=== PATIENT | female | born 1955 | race Caucasian/White ===

== ENCOUNTER 2017-12-20 11:38 | Emergency (ER) | payer OTHER ==
[2017-12-20 12:47] LABS: Absolute Lymphocytes (CBC) 1.2 K/uL (0.7-4.9); Absolute Monocytes 0.9 K/uL (0.1-1.3); Absolute Neutrophil 10.3 K/uL (1.8-8.0); Basophils % 0.3 % (0-1.3); Hematocrit 34.1 % (36.0-45.0); Lymphocytes % 9.8 % (15.3-44.8); MCH 30.5 pg (27.0-35.0); MCV 91.6 fL (80-100); RBC Red Blood Cell Count 3.73 M/uL (3.86-4.86)
[2017-12-20 13:00] LABS: Barbiturates NEGATIVE (NEGATIVE); Benzodiazepines NEGATIVE (NEGATIVE); Cocaine NEGATIVE (NEGATIVE); METHAMPHETAM NEGATIVE (NEGATIVE); Methadone NEGATIVE (NEGATIVE); Opiates NEGATIVE (NEGATIVE); Phencyclidine NEGATIVE (NEGATIVE); THC Cannibis NEGATIVE (NEGATIVE)
[2017-12-20 13:06] LABS: Protime INR 1.06
[2017-12-20 14:03] LABS: Urine Blood TRACE (NEG); Urine Glucose NEGATIVE (NEG); Urine Protein 2+ (NEG); Urine Specific Gravity 1.025 (1.005-1.030)
--- NOTE | 2017-12-20 14:51 | EKG ---
Test Date: 2017-12-20 Test Time: 11:46:20 Drainman: NICHOLAS MEASUREMENT RESULTS: Intervals: Rate: 89 NM: 150 QRSD: 88 QT: 450 QTc: 547 [place]: P: 76 NM: 150 QRS: 83 T: 84 INTERPRETIVE STATEMENTS: Normal sinus rhythm ST abnormality, possible digitalis effect Prolonged QT Abnormal ECG Compared to ECG 01/09/2014 13:36:28 ST (T wave) deviation now present Prolonged QT interval now present Electronically Signed On 12-20-17 14:50:10 CDT by Coy Nava
[2017-12-20 15:28] LABS: ALT/SGPT 49 U/L (12-78); AST/SGOT 52 U/L (15-37); Albumin 3.5 g/dL (3.4-5.0); Alkaline Phosphatase 73 U/L (45-117); BUN Blood Urea Nitrogen 14 mg/dL (7-18); Bicarbonate 22 mmol/L (21-32); Bilirubin Direct 0.2 mg/dL (0-0.2); Bilirubin Total 0.6 mg/dL (0.2-1.0); Glucose Level 164 mg/dL (74-106); Protein, Total 7.7 g/dL (6.4-8.2); Sodium Level 133 mmol/L (136-145)
[2017-12-20 15:33] LABS: Alcohol Serum/Plasma < 3 mg/dL (0-3)
[2017-12-20] MEDS ORDERED: NA CHLORIDE 0.9% 1,000 ML ONE ×2 (16:12→17:52)
[2017-12-20] MEDS ORDERED: POTASSIUM 25 MEQ EFFERV TAB ONE (16:12)
[2017-12-20] MEDS ORDERED: LIDOCAINE VISCOUS 2% SOLN 15 ML UDC ONE (18:04)
[2017-12-20] MEDS ORDERED: MAGNE/ALUM HYDROXD 30 ML UCUP ONE (18:04)
[2017-12-20] MEDS ORDERED: ONDANSETRON 4 MG/2 ML VIAL ONE (18:04)
[2017-12-20 18:42] LABS: Potassium 3.6 mmol/L (3.5-5.1)
[2017-12-20 19:34] LABS: Absolute Lymphocytes (CBC) 1.4 K/uL (0.7-4.9); Absolute Monocytes 1.1 K/uL (0.1-1.3); Basophils % 0.5 % (0-1.3); Hematocrit 31.1 % (36.0-45.0); Lymphocytes % 14.4 % (15.3-44.8); MCH 30.6 pg (27.0-35.0); MCV 91.4 fL (80-100); MPV 9.4 fL (7.6-11.3); Monocytes % 11.3 % (3.3-12.3); RBC Red Blood Cell Count 3.41 M/uL (3.86-4.86)
--- NOTE | 2017-12-20 20:13 | ER ---
Nurse's Notes [facility] Name: Lakeisha Kumari Age: 62 yrs Sex: Female : 1955 Arrival Date: 12/20/2017 Time: 11:50 Bed 16 Private MD: Diagnosis: Depression. Suicidal Ideation Presentation: 12/20 11:51 Presenting complaint: Patient states: Took "a hand full" or Prozac, Buspirone, and aj amlodipine, 12 hours ago. Patient reports that she was trying to overdose. Awake and alert. Reports nausea and abdominal cramping. Transition of care: patient was not received from another setting of care. Onset of symptoms was December 20, 2017. Risk Assessment: Do you want to hurt yourself or someone else? Patient reports desire/thoughts of hurting themselves or someone else. Provider notified. Initial Sepsis Screen: Does the patient meet any 2 criteria? No. Patient's initial sepsis screen is negative. Does the patient have a suspected source of infection? No. Patient's initial sepsis screen is negative. Care prior to arrival: None. 11:51 Method Of Arrival: EMS: [facility] 11:51 Acuity: KVNG 2 aj Triage Assessment: 11:55 General: Appears in no apparent distress. comfortable, Behavior is calm, cooperative, aj appropriate for age. Pain: Denies pain. Neuro: Level of Consciousness is awake, alert, obeys commands, Oriented to person, place, time, situation, Appropriate for age. Respiratory: Airway is patent Respiratory effort is even, unlabored, Respiratory pattern is regular, symmetrical. GI: Reports cramping, nausea. Derm: Skin is intact, is healthy with good turgor, Skin is pink, warm \\T\\ dry. normal. Historical: - Allergies: 11:55 No Known Allergies; aj - Home Meds: 11:55 Buspirone Oral [Active]; amlodipine oral [Active]; Prozac Oral [Active]; aj - PMHx: 11:55 Depression; Anxiety; Hypertension; aj - PSHx: 11:55 None; aj - Immunization history:: Adult Immunizations up to date. - Social history:: Smoking status: Patient/guardian denies using tobacco. - Ebola Screening: : Patient negative for fever greater than or equal to 101.5 degrees Fahrenheit, and additional compatible Ebola Virus Disease symptoms Patient denies exposure to infectious person Patient denies travel to an Ebola-affected area in the 21 days before illness onset No symptoms or risks identified at this time. Screenin:39 Abuse screen: Denies threats or abuse. Denies injuries from another. Nutritional aj screening: No deficits noted. Tuberculosis screening: No symptoms or risk factors identified. Fall Risk None identified. Assessment: 12:39 Reassessment: Patient appears in no apparent distress at this time. No changes from aj previously documented assessment. Patient and/or family updated on plan of care and expected duration. Pain level reassessed. See triage. 17:30 Reassessment: Report received from ELEONORA Davis. Pt currently resting in bed with eyes aa5 closed, respirations even and unlabored, skin is pink/warm/dry. . 17:50 General: Appears comfortable, Behavior is calm, cooperative, Pt reports suicidal aa5 attempt by overdose today. Pt states "I've never done anything stupid like this". . Pain: Complains of pain in right upper quadrant, left upper quadrant, right lower quadrant and left lower quadrant Pain radiates to up to throat Pain currently is 7 out of 10 on a pain scale. Quality of pain is described as burning, "heartburn" Pain began 2-3 days ago. Is episodic, Alleviated by nothing. Aggravated by none. Neuro: Level of Consciousness is awake, alert, obeys commands, Oriented to person, place, time, situation. Cardiovascular: Heart tones S1 S2 present Rhythm is regular. Respiratory: Airway is patent Respiratory effort is even, unlabored, Respiratory pattern is regular, symmetrical, Breath sounds are clear bilaterally. GI: Abdomen is round non-distended, Bowel sounds present X 4 quads. Abd is soft and non tender X 4 quads. Reports nausea, Pt currently denies vomiting, denies diarrhea. : No signs and/or symptoms were reported regarding the genitourinary system. EENT: No signs and/or symptoms were reported regarding the EENT system. Derm: Skin is pink, warm \\T\\ dry. Musculoskeletal: Range of motion: intact in all extremities. 18:15 Reassessment: Patient is alert, oriented x 3, equal unlabored respirations, skin aa5 warm/dry/pink. MD stated to repeat CBC and potassium level after NS infusion is completed. Pt notified of POC. 19:05 Reassessment: Patient appears in no apparent distress at this time. Patient is alert, lp1 oriented x 3, equal unlabored respirations, skin warm/dry/pink. Patient resting in bed. General: Behavior is calm, cooperative. 19:45 Reassessment: [facility] at bedside to evaluate patient. lp1 20:00 Reassessment: Nurse to Nurse report given to ELEONORA Fair at [facility]. lp1 20:28 Reassessment: Patient called son, El, and notified of transfer to [facility]. lp1 20:54 Reassessment: [facility] at bedside for transfer. lp1 Psych: 11:57 Subjective: Patient's mood is sad, Delusions are denied, Hallucinations are denied aj Having thoughts of suicide. Objective: Patient is cooperative, Speech is normal, Affect is flat. Interventions: Removed personal items and placed in bag. Patient placed in hospital gown. Searched person for dangerous items. Urine collected and sent for urine drug test. Suicide Risk Assessment: Sad Person Scale: Sex of patient: Female: Score 0 points. Age of patient: Score 1 point if patient 15-34. Depression: Score 1 point if signs of depression are present. Previous Attempt: Score 0 point if patient has not previously attempted suicide. Substance Abuse: Score 0 point if patient does not abuse alcohol or drugs. Rational Thinking: Score 0 point if patient has rational thinking. Social Support: Score 1 point if social support is lacking and/or unavailable. Organized Plan: Score 0 if patient did not have an organized plan in place. Relationship: Score 1 point if patient is , , , or for a single male Chronic Sickness: Score 0 point if patient does not have a chronic illness, debilitating, or severe disorder. TOTAL POINTS:. Safety Checks: Personal items have been removed. Pt has been placed in a hallway bed/chair. No visitors are present at this time. Pt denies substance abuse. Commitment: Patient will be a voluntary commitment. Vital Signs: 11:55 BP 139 / 66; Pulse 91; Resp 18; Temp 98.5; Pulse Ox 100% on R/A; Weight 56.7 kg; Height aj 5 ft. 4 in. (162.56 cm); Pain 0/10; 12:48 BP 132 / 62; Pulse 96; Resp 18; Pulse Ox 98% on R/A; tm3 13:43 BP 145 / 59; Pulse 77; Resp 18; Pulse Ox 100% on R/A; tm3 14:32 BP 132 / 65; Pulse 80; Resp 16; Pulse Ox 100% on R/A; tm3 16:46 BP 139 / 53; Pulse 100; Resp 18; Pulse Ox 100% on R/A; tm3 17:34 BP 116 / 55; Pulse 94; Resp 18; Pulse Ox 100% on R/A; tm3 19:05 BP 132 / 69; Pulse 97; Resp 18; Temp 99.7(O); Pulse Ox 98% on R/A; Pain 0/10; cc 11:55 Body Mass Index 21.46 (56.70 kg, 162.56 cm) ED Course: 11:50 Patient arrived in ED. aj 11:51 Efrem Melara MD is Attending Physician. 11:51 Susan Funez, RN is Primary Nurse. aj 11:54 Triage completed. aj 11:54 EKG done, by sorter/assay tech. reviewed by Efrem Melara MD. at1 11:55 Arm band placed on left wrist. Patient placed in an exam room, on a stretcher, Patient aj Room cleared. EKG completed in triage. Results shown to MD. 12:00 Safety checks: Items removed: yes. Door open/sign placed on door: yes. Family/friend tm3 present: no. Sitter present: Yes. 12:19 Safety checks: Items removed: yes. Door open/sign placed on door: yes. Family/friend tm3 present: no. Sitter present: Yes. 12:35 Safety checks: Items removed: yes. Door open/sign placed on door: yes. Family/friend tm3 present: no. Sitter present: Yes. 12:39 Inserted saline lock: 22 gauge in left antecubital area, using aseptic technique. Blood aj collected. 12:39 Patient has correct armband on for positive identification. aj 12:47 Safety checks: Items removed: yes. Door open/sign placed on door: yes. Family/friend tm3 present: no. Sitter present: Yes. 12:52 Urine collected: clean catch specimen, clear. [facility] 12:52 Urine Dipstick--Ancillary (enter results) Sent. [facility] 12:52 ETOH Level Sent. [facility] 12:53 Urine Drug Screen Sent. [facility] 13:05 Safety checks: Items removed: yes. Door open/sign placed on door: yes. Family/friend tm3 present: no. Sitter present: Yes. 13:24 Safety checks: Items removed: yes. Door open/sign placed on door: yes. Family/friend tm3 present: no. Sitter present: Yes. 13:25 Side rails up X 1. Side rails up X2. tm3 13:42 Safety checks: Items removed: yes. Door open/sign placed on door: yes. Family/friend tm3 present: no. Sitter present: Yes. 14:02 Safety checks: Items removed: yes. Door open/sign placed on door: yes. Family/friend tm3 present: no. Sitter present: Yes. 14:15 Safety checks: Items removed: yes. Door open/sign placed on door: yes. Family/friend tm3 present: no. Sitter present: Yes. 14:32 Safety checks: Items removed: yes. Door open/sign placed on door: yes. Family/friend tm3 present: no. Sitter present: Yes. 14:48 Safety checks: Items removed: Door open/sign placed on door: yes. Family/friend tm3 present: no. Sitter present: Yes. 15:00 Safety checks: Items removed: yes. Door open/sign placed on door: yes. Family/friend mh5 present: no. Sitter present: Yes. 15:30 Safety checks: Items removed: yes. Door open/sign placed on door: yes. Family/friend mh5 present: no. Sitter present: Yes. 15:45 Safety checks: Items removed: yes. Door open/sign placed on door: yes. Family/friend mh5 present: no. Sitter present: Yes. 16:00 Safety checks: Items removed: yes. Door open/sign placed on door: yes. Family/friend mh5 present: no. Sitter present: Yes. 16:15 Safety checks: Items removed: yes. Door open/sign placed on door: yes. Family/friend mh5 present: no. Sitter present: Yes. 16:30 Safety checks: Items removed: yes. Door open/sign placed on door: yes. Family/friend mh5 present: no. Sitter present: Yes. 16:46 Safety checks: Items removed: yes. Door open/sign placed on door: yes. Family/friend tm3 present: no. Sitter present: Yes. 17:02 Safety checks: Items removed: yes. Door open/sign placed on door: yes. Family/friend tm3 present: no. Sitter present: Yes. 17:14 Safety checks: Items removed: yes. Door open/sign placed on door: yes. Family/friend tm3 present: no. Sitter present: Yes. 17:30 Safety Checks: Personal items have been removed. The door is open or patient has been aa5 placed in a hallway bed/chair. Sitter present at this time. 17:30 Safety checks: Items removed: yes. Door open/sign placed on door: yes. Family/friend tm3 present: no. Sitter present: Yes. 17:45 Safety Checks: Personal items have been removed. The door is open or patient has been aa5 placed in a hallway bed/chair. Sitter present at this time. 17:51 Safety checks: Items removed: yes. Door open/sign placed on door: yes. Family/friend tm3 present: no. Sitter present: Yes. 17:54 Diet: Patient given a regular meal tray. [facility] 18:00 Safety Checks: Personal items have been removed. The door is open or patient has been aa5 placed in a hallway bed/chair. Sitter present at this time. 18:03 Safety checks: Items removed: yes. Door open/sign placed on door: yes. Family/friend tm3 present: no. Sitter present: Yes. 18:04 Repeat lab(s) drawn. sent to lab. [facility] 18:15 Safety Checks: Personal items have been removed. The door is open or patient has been aa5 placed in a hallway bed/chair. Sitter present at this time. 18:17 Safety checks: Items removed: yes. Door open/sign placed on door: yes. Family/friend tm3 present: no. Sitter present: Yes. 18:22 Urine Dipstick--Ancillary (enter results) Sent. [facility] 18:22 Basic Metabolic Panel Sent. [facility] 18:30 Safety Checks: Personal items have been removed. The door is open or patient has been aa5 placed in a hallway bed/chair. There are no family/friend visitors at this time Sitter present at this time. 18:32 Safety checks: Items removed: yes. Door open/sign placed on door: yes. Family/friend tm3 present: no. Sitter present: Yes. 18:44 Safety checks: Items removed: yes. Door open/sign placed on door: yes. Family/friend tm3 present: no. Sitter present: Yes. 18:45 Safety Checks: Personal items have been removed. The door is open or patient has been aa5 placed in a hallway bed/chair. There are no family/friend visitors at this time Sitter present at this time. 18:55 Yuliya Xie RN is Primary Nurse. 1 18:59 Safety checks: Items removed: yes. Door open/sign placed on door: yes. Family/friend cc present: no. Sitter present: Yes. 19:00 Safety Checks: Personal items have been removed. The door is open or patient has been aa5 placed in a hallway bed/chair. There are no family/friend visitors at this time Sitter present at this time. 19:00 No provider procedures requiring assistance completed. 1 19:00 Report given to Yuliya Xie RN. 5 19:15 Safety checks: Items removed: yes. Door open/sign placed on door: yes. Family/friend cc present: no. Sitter present: Yes. 19:25 Repeat lab(s) drawn. by me, sent to lab. lp1 19:34 Safety checks: Items removed: yes. Door open/sign placed on door: yes. Family/friend cc present: no. Sitter present: Yes. 19:57 [place] screener at bedside. cc 20:05 Safety checks: Items removed: yes. Door open/sign placed on door: no. Family/friend cc present: no. Sitter present: Yes. Other: [place] screener at bedside. 20:18 Safety checks: Items removed: yes. Door open/sign placed on door: no. Family/friend cc present: no. Sitter present: Other: [place] screener present. 20:32 Safety checks: Items removed: yes. Door open/sign placed on door: no. Family/friend cc present: no. Sitter present: Other: [place] Screener present. 20:45 Safety checks: Items removed: yes. Door open/sign placed on door: yes. Family/friend cc present: no. Sitter present: Yes. 20:54 IV discontinued, No redness/swelling at site. Pressure dressing applied. lp1 Administered Medications: 16:20 Drug: Potassium Effervescent Tablet 50 mEq Route: PO; aj 17:30 Follow up: Response: No adverse reaction iw 16:20 Drug: NS 0.9% 1000 ml Route: IV; Rate: 1 bolus; Site: left antecubital; aj 17:30 Follow up: IV Status: Completed infusion iw 17:57 Drug: NS 0.9% 1000 ml Route: IV; Rate: 1 bolus; Site: left antecubital; iw 19:15 Follow up: IV Status: Completed infusion; IV Intake: 1000ml lp1 18:06 Drug: Zofran 4 mg Route: IVP; Site: left antecubital; aa5 18:15 Follow up: Response: No adverse reaction aa5 18:06 Drug: GI Cocktail without - (Maalox Suspension 30 ml, Lidocaine Liquid 2 % 15 aa5 ml) Route: PO; 20:29 Follow up: Response: No adverse reaction; Marked relief of symptoms lp1 Intake: 19:15 IV: 1000ml; Total: 1000ml. lp1 Outcome: 20:12 ER care complete, transfer ordered by . pkl 20:54 Condition: stable lp1 20:54 Instructed on the need for transfer. 20:55 Transferred by ground EMS to other acute care facility. lp1 20:58 Patient left the ED. lp1 Signatures: Tc Sanchez tm3 Susan Funez RN RN aj Lam, Pin, MD MD pkl Adeola Bartholomew RN RN Azucena Swanson RN RN aa5 Chelsy Ortiz Laura, RN RN lp1 Susan velazquez, shear setter EKG Tat1 Crystal Newman 5 Efrem Melara MD MD Corrections: (The following items were deleted from the chart) 18:26 17:50 General: Appears comfortable, Behavior is calm, cooperative, aa5 aa5
--- NOTE | 2017-12-20 20:13 | EDPHYS ---
Physician Documentation [facility] Name: Lakeisha Kumari Age: 62 yrs Sex: Female : 1955 Arrival Date: 12/20/2017 Time: 11:50 Bed 16 Private MD: ED Physician Efrem Melara HPI: 12/20 14:12 This 62 yrs old Female presents to ER via EMS with complaints of Psych gs Problem. 14:12 The patient presents to the emergency department with depression, suicide ideation, but gs the patient has no formulated plan. Onset: The symptoms/episode began/occurred 2 day(s) ago. Associated signs and symptoms: Pertinent negatives: chest pain, delusions, homicidal ideation. Severity of symptoms: At their worst the symptoms were moderate in the emergency department the symptoms are unchanged. The patient has experienced similar episodes in the past, a few times. Historical: - Allergies: 11:55 No Known Allergies; aj - Home Meds: 11:55 Buspirone Oral [Active]; amlodipine oral [Active]; Prozac Oral [Active]; aj - PMHx: 11:55 Depression; Anxiety; Hypertension; aj - PSHx: 11:55 None; aj - Immunization history:: Adult Immunizations up to date. - Social history:: Smoking status: Patient/guardian denies using tobacco. - Ebola Screening: : Patient negative for fever greater than or equal to 101.5 degrees Fahrenheit, and additional compatible Ebola Virus Disease symptoms Patient denies exposure to infectious person Patient denies travel to an Ebola-affected area in the 21 days before illness onset No symptoms or risks identified at this time. ROS: 14:12 All other systems are negative. gs Exam: 14:12 Head/Face: Normocephalic, atraumatic. Eyes: Pupils equal round and reactive to light, gs extra-ocular motions intact. Lids and lashes normal. Conjunctiva and sclera are non-icteric and not injected. Cornea within normal limits. Periorbital areas with no swelling, redness, or edema. ENT: Nares patent. No nasal discharge, no septal abnormalities noted. Tympanic membranes are normal and external auditory canals are clear. Oropharynx with no redness, swelling, or masses, exudates, or evidence of obstruction, uvula midline. Mucous membranes moist. Neck: Trachea midline, no thyromegaly or masses palpated, and no cervical lymphadenopathy. Supple, full range of motion without nuchal rigidity, or vertebral point tenderness. No Meningismus. Chest/axilla: Normal chest wall appearance and motion. Nontender with no deformity. No lesions are appreciated. Cardiovascular: Regular rate and rhythm with a normal S1 and S2. No gallops, murmurs, or rubs. Normal PMI, no JVD. No pulse deficits. Respiratory: Lungs have equal breath sounds bilaterally, clear to auscultation and percussion. No rales, rhonchi or wheezes noted. No increased work of breathing, no retractions or nasal flaring. Abdomen/GI: Soft, non-tender, with normal bowel sounds. No distension or tympany. No guarding or rebound. No evidence of tenderness throughout. Back: No spinal tenderness. No costovertebral tenderness. Full range of motion. Skin: Warm, dry with normal turgor. Normal color with no rashes, no lesions, and no evidence of cellulitis. MS/ Extremity: Pulses equal, no cyanosis. Neurovascular intact. Full, normal range of motion. Neuro: Awake and alert, GCS 15, oriented to person, place, time, and situation. Cranial nerves II-XII grossly intact. Motor strength 5/5 in all extremities. Sensory grossly intact. Cerebellar exam normal. Normal gait. 14:12 Constitutional: The patient appears alert, awake. 14:12 ECG was reviewed by the Attending Physician. 14:24 Psych: Behavior/mood is depressed, Affect is flat, Oriented to person, place, time, gs Patient having thoughts of suicide. Judgement / Insight is impaired. Vital Signs: 11:55 BP 139 / 66; Pulse 91; Resp 18; Temp 98.5; Pulse Ox 100% on R/A; Weight 56.7 kg; Height aj 5 ft. 4 in. (162.56 cm); Pain 0/10; 12:48 BP 132 / 62; Pulse 96; Resp 18; Pulse Ox 98% on R/A; tm3 13:43 BP 145 / 59; Pulse 77; Resp 18; Pulse Ox 100% on R/A; tm3 14:32 BP 132 / 65; Pulse 80; Resp 16; Pulse Ox 100% on R/A; tm3 16:46 BP 139 / 53; Pulse 100; Resp 18; Pulse Ox 100% on R/A; tm3 17:34 BP 116 / 55; Pulse 94; Resp 18; Pulse Ox 100% on R/A; tm3 19:05 BP 132 / 69; Pulse 97; Resp 18; Temp 99.7(O); Pulse Ox 98% on R/A; Pain 0/10; cc 11:55 Body Mass Index 21.46 (56.70 kg, 162.56 cm) aj MDM: 12:15 Patient medically screened. 14:12 Differential diagnosis: acute psychotic break, depression, psychosis secondary to gs non-compliance, suicidal ideation. Data reviewed: vital signs, nurses notes. 14:24 Response to treatment: the patient's symptoms have mildly improved after treatment. 20:09 Data reviewed: lab test result(s), EKG, radiologic studies. pkl 12/20 12:27 Order name: Acetaminophen; Complete Time: 17:54 12/20 12:27 Order name: Basic Metabolic Panel; Complete Time: 17:54 12/20 12:27 Order name: CBC with Diff; Complete Time: 14:18 12/20 12:27 Order name: ETOH Level; Complete Time: 17:54 12/20 12:27 Order name: Hepatic Function; Complete Time: 17:54 12/20 12:27 Order name: PT-INR; Complete Time: 14:18 12/20 12:27 Order name: Salicylate; Complete Time: 15:31 12/20 12:27 Order name: Urine Drug Screen; Complete Time: 14:18 12/20 12:48 Order name: Urine Dipstick--Ancillary (enter results) bd 12/20 16:14 Order name: Magnesium; Complete Time: 17:54 12/20 17:55 Order name: BMP 12/20 17:55 Order name: Basic Metabolic Panel; Complete Time: 18:46 EDMS 12/20 19:00 Order name: CBC with Diff; Complete Time: 20:04 lp1 12/20 12:27 Order name: EKG; Complete Time: 12:28 12/20 12:27 Order name: EKG - Nurse/Tech; Complete Time: 12:39 12/20 12:27 Order name: IV Saline Lock; Complete Time: 12:39 12/20 12:27 Order name: Labs collected and sent; Complete Time: 12:39 12/20 12:27 Order name: Urine Dipstick-Ancillary (obtain specimen); Complete Time: 12:39 12/20 16:05 Order name: Diet Regular; Complete Time: 16:05 [facility] EC:12 Rate is 89 beats/min. Rhythm is regular. [place] interval is normal. QRS interval is normal. gs No Q waves. T waves are Flattened. Clinical impression: Abnormal EKG without significant change. Interpreted by me. Administered Medications: 16:20 Drug: Potassium Effervescent Tablet 50 mEq Route: PO; aj 17:30 Follow up: Response: No adverse reaction iw 16:20 Drug: NS 0.9% 1000 ml Route: IV; Rate: 1 bolus; Site: left antecubital; aj 17:30 Follow up: IV Status: Completed infusion iw 17:57 Drug: NS 0.9% 1000 ml Route: IV; Rate: 1 bolus; Site: left antecubital; iw 19:15 Follow up: IV Status: Completed infusion; IV Intake: 1000ml lp1 18:06 Drug: Zofran 4 mg Route: IVP; Site: left antecubital; aa5 18:15 Follow up: Response: No adverse reaction aa5 18:06 Drug: GI Cocktail without - (Maalox Suspension 30 ml, Lidocaine Liquid 2 % 15 aa5 ml) Route: PO; 20:29 Follow up: Response: No adverse reaction; Marked relief of symptoms lp1 Disposition: 12/20/17 20:12 Transfer ordered to Psych Facility. Diagnosis is Depression. Suicidal Ideation. - Reason for transfer: Higher level of care. - Accepting physician is Dr. Goldy Ambrocio. - Condition is Stable. - Problem is new. - Symptoms are unchanged. Signatures: Dispatcher [employer] EDSusan Huff RN RN aj Lam, Pin, MD MD pkl Adeola Bartholomew RN RN Azucena Swanson RN RN aa5 Yuliya Xie RN RN lp1 Efrem Melara MD MD gs Corrections: (The following items were deleted from the chart) 20:58 20:12 12/20/2017 20:12 Transfer ordered to Psych Facility. Diagnosis is Depression. lp1 Suicidal Ideation. Reason for transfer: Higher level of care. Accepting physician is Dr. Goldy Ambrocio. Condition is Stable. Problem is new. Symptoms are unchanged. pkl
[2017-12-20 21:21] VITALS: BP 132/69; TEMP 99.7; O2SAT 98
== END 2017-12-20 20:58 ==
LOC: ER 11:38
DX: F32.9 Major depressive disorder, single episode, unspecified (principal); R45.851 Suicidal ideations; I10 Essential (primary) hypertension
CPT/HCPCS: 36415; 80048 ×2; 80076; 80307 ×8; 80320; 80329 ×2; 81003; 83735; 85025 ×2; 85610; 93005; 96361; 96374; 99285; J2405; J7030 ×2

== ENCOUNTER 2018-02-09 20:58 | Observation (INO) | payer OTHER ==
[2018-02-09] MEDS ORDERED: cloNIDine HCl 0.1 MG TAB ONE (21:30)
[2018-02-09 21:38] LABS: Absolute Lymphocytes (CBC) 2.3 K/uL (0.7-4.9); Absolute Monocytes 0.6 K/uL (0.1-1.3); Absolute Neutrophil 3.4 K/uL (1.8-8.0); Basophils % 0.5 % (0-1.3); Eosinophils % 2.3 % (0-4.4); Hematocrit 33.8 % (36.0-45.0); Lymphocytes % 35.6 % (15.3-44.8); MCH 30.6 pg (27.0-35.0); MCV 90.4 fL (80-100); MPV 9.2 fL (7.6-11.3); Monocytes % 9.9 % (3.3-12.3); RBC Red Blood Cell Count 3.74 M/uL (3.86-4.86)
[2018-02-09 21:56] LABS: ALT/SGPT 70 U/L (12-78); AST/SGOT 51 U/L (15-37); Albumin 3.4 g/dL (3.4-5.0); Alkaline Phosphatase 117 U/L (45-117); BUN Blood Urea Nitrogen 9 mg/dL (7-18); Bicarbonate 28 mmol/L (21-32); Bilirubin Total 0.3 mg/dL (0.2-1.0); Glucose Level 87 mg/dL (74-106); Lipase 376 U/L (73-393); Potassium 3.3 mmol/L (3.5-5.1); Protein, Total 7.9 g/dL (6.4-8.2); Sodium Level 139 mmol/L (136-145); Troponin (Emerg Dept Use Only) < 0.02 ng/mL (0.0-0.045)
--- NOTE | 2018-02-09 23:46 | ER ---
Nurse's Notes [facility] Name: Lakeisha Kumari Age: 62 yrs Sex: Female : 1955 Arrival Date: 02/09/2018 Time: 21:04 Bed 4 Private MD: Diagnosis: Chest pain, unspecified;Hypertension secondary to other renal disorders Presentation: 02/09 21:08 Presenting complaint: Patient states: I am staying at [facility] for drug rehab and tl2 they wanted me to come here because my blood pressure is high. Also reports chest pressure and headache that started 3 hours TUBULAR RIVETER. Transition of care: patient was received from another setting of care (rehabilitation facility). Onset of symptoms was February 09, 2018 at 18:00. Risk Assessment: Do you want to hurt yourself or someone else? Patient reports no desire to harm self or others. Initial Sepsis Screen: Does the patient meet any 2 criteria? No. Patient's initial sepsis screen is negative. Does the patient have a suspected source of infection? No. Patient's initial sepsis screen is negative. Care prior to arrival: None. 21:08 Method Of Arrival: EMS: [email or web address] tl2 21:08 Acuity: KVNG 2 tl2 Triage Assessment: 21:11 General: Appears in no apparent distress. uncomfortable, Behavior is calm, cooperative, tl2 appropriate for age. Pain: Complains of pain in chest, headache Pain does not radiate. Neuro: Level of Consciousness is awake, alert, obeys commands, Oriented to person, place, time, situation, Reports headache. Cardiovascular: Chest pain is described as mild, quality is pressure, is located in anterior. Respiratory: Airway is patent Respiratory effort is even, unlabored, Respiratory pattern is regular, symmetrical. GI: No signs and/or symptoms were reported involving the gastrointestinal system. : No signs and/or symptoms were reported regarding the genitourinary system. Derm: Skin is pink, warm \T\ dry. Historical: - Allergies: 21:11 No Known Allergies; tl2 - Home Meds: 21:11 amlodipine oral [Active]; Buspirone Oral [Active]; Prozac Oral [Active]; tl2 - PMHx: 21:11 Anxiety; Depression; Hypertension; tl2 - Immunization history:: Adult Immunizations up to date. - Social history:: Smoking status: Patient uses tobacco products, smokes one pack cigarettes per day. - Ebola Screening: : No symptoms or risks identified at this time. Screenin:13 Abuse screen: Denies threats or abuse. Nutritional screening: No deficits noted. tl2 Tuberculosis screening: No symptoms or risk factors identified. Fall Risk None identified. Assessment: 21:15 General: Appears in no apparent distress. Pain: Complains of pain in anterior aspect of ea left upper chest and mid-sternal area Pain does not radiate. Quality of pain is described as aching, Pain began 3 hours ago. Neuro: Level of Consciousness is awake, alert, obeys commands, Oriented to person, place, time, situation. Cardiovascular: Heart tones S1 S2 present Patient's skin is warm and dry. Respiratory: Airway is patent Respiratory effort is even, unlabored, Respiratory pattern is regular, symmetrical, Breath sounds are clear bilaterally. GI: No signs and/or symptoms were reported involving the gastrointestinal system. : No signs and/or symptoms were reported regarding the genitourinary system. EENT: No signs and/or symptoms were reported regarding the EENT system. Derm: Skin is pink, warm \T\ dry. 22:21 Reassessment: Patient and/or family updated on plan of care and expected duration. Pain ea level reassessed. Patient is alert, oriented x 3, equal unlabored respirations, skin warm/dry/pink. 23:03 Reassessment: Patient and/or family updated on plan of care and expected duration. Pain ea level reassessed. Pt resting with eyes closed, respirations even and unlabored. Chest expansions even and symmetrical. No s/s of pain or discomfort noted at this time. 23:15 Reassessment: Patient appears in no apparent distress at this time. Patient and/or tl2 family updated on plan of care and expected duration. Pain level reassessed. Pt appears to be sleeping, RR even and unlabored. 02/10 00:23 Reassessment: Patient and/or family updated on plan of care and expected duration. Pain ea level reassessed. Patient is alert, oriented x 3, equal unlabored respirations, skin warm/dry/pink. 01:18 Reassessment: Report called to [facility] on second floor. ea Vital Signs: 02/09 21:11 BP 185 / 71; Pulse 60; Resp 20; Temp 97.9; Pulse Ox 98% on R/A; Weight 68.04 kg; Height tl2 5 ft. 5 in. (165.10 cm); Pain 5/10; 22:17 BP 154 / 81; Pulse 70; Resp 18; Pulse Ox 98% on R/A; ea 22:19 BP 154 / 81; Pulse 74; Resp 18; Pulse Ox 98% on R/A; tl2 23:05 BP 148 / 56; Pulse 61; Resp 16; Pulse Ox 98% ; ea 02/10 00:26 BP 149 / 64; Pulse 67; Resp 15; Pulse Ox 98% on R/A; ea 01:15 BP 145 / 78; Pulse 60; Resp 18; Pulse Ox 99% ; Pain 0/10; ea 02/09 21:11 Body Mass Index 24.96 (68.04 kg, 165.10 cm) tl2 ED Course: 02/09 21:04 Patient arrived in ED. ds1 21:08 Dario Boggs MD is Attending Physician. ps1 21:09 Triage completed. tl2 21:11 Arm band placed on right wrist. tl2 21:13 Patient has correct armband on for positive identification. Bed in low position. Call tl2 light in reach. Side rails up X 1. planning specialist on. Pulse ox on. NIBP on. 21:13 Inserted saline lock: 22 gauge in right antecubital area, using aseptic technique. tl2 Blood collected. Patient maintains SpO2 saturation greater than 95% on room air. 21:17 Sharon Black RN is Primary Nurse. ea 23:44 Max Barber MD is Hospitalizing Provider. ps1 02/10 01:19 Patient admitted, IV remains in place. ea 01:19 No provider procedures requiring assistance completed. ea Administered Medications: 02/09 21:30 Drug: cloNIDine 0.1 mg {Note: BP 185/71.} Route: PO; tl2 22:30 Follow up: Response: No adverse reaction; Blood pressure is lowered tl2 Outcome: 23:45 Decision to Hospitalize by Provider. ps1 02/10 00:30 Instructed on the need for admit. ea 01:19 Admitted to Med/surg accompanied by tech, room 429, Report called to [facility] ea 01:19 Condition: stable 01:32 Patient left the ED. ea Signatures: Vickie Horta ds1 Ratna Jackson RN RN tl2 Sharon Black RN RN Dario Poe MD MD ps1 Corrections: (The following items were deleted from the chart) 02:08 01:56 Patient left the ED. ton camilo
--- NOTE | 2018-02-09 23:46 | EDPHYS ---
Physician Documentation [facility] Name: Lakeisha Kumari Age: 62 yrs Sex: Female : 1955 Arrival Date: 02/09/2018 Time: 21:04 Bed 4 Private MD: ED Physician Dario Boggs HPI: 02/09 21:10 This 62 yrs old Female presents to ER via EMS with complaints of High Blood ps1 Pressure, Chest Pain. 21:10 patient with history of HTN on amlodipine in rehab for tox/etoh presenting with CP and ps1 pressure since 3pm. radiating to neck. 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 Pain moderate. BP 180's systolic per EMS. . Historical: - Allergies: 21:11 No Known Allergies; tl2 - Home Meds: 21:11 amlodipine oral [Active]; Buspirone Oral [Active]; Prozac Oral [Active]; tl2 - PMHx: 21:11 Anxiety; Depression; Hypertension; tl2 - Immunization history:: Adult Immunizations up to date. - Social history:: Smoking status: Patient uses tobacco products, smokes one pack cigarettes per day. - Ebola Screening: : No symptoms or risks identified at this time. ROS: 21:10 Constitutional: Negative for fever, chills, and weight loss, Eyes: Negative for injury, ps1 pain, redness, and discharge, Respiratory: Negative for shortness of breath, cough, wheezing, and pleuritic chest pain, Abdomen/GI: Negative for abdominal pain, nausea, vomiting, diarrhea, and constipation, MS/Extremity: Negative for injury and deformity, Skin: Negative for injury, rash, and discoloration, Neuro: Negative for headache, weakness, numbness, tingling, and seizure. Exam: 21:10 Constitutional: This is a well developed, well nourished patient who is awake, alert, ps1 and in no acute distress. Head/Face: Normocephalic, atraumatic. Eyes: Pupils equal round and reactive to light, extra-ocular motions intact. Lids and lashes normal. Conjunctiva and sclera are non-icteric and not injected. ENT: Nares patent. No nasal discharge, no septal abnormalities noted. Tympanic membranes are normal and external auditory canals are clear. Oropharynx with no redness, swelling, or masses, exudates, or evidence of obstruction, uvula midline. Mucous membranes moist. Chest/axilla: Normal chest wall appearance and motion. Nontender with no deformity. No lesions are appreciated. Cardiovascular: Regular rate and rhythm. No gallops, murmurs, or rubs. Normal PMI, no JVD. No pulse deficits. Respiratory: Lungs have equal breath sounds bilaterally, clear to auscultation and percussion. No rales, rhonchi or wheezes noted. No increased work of breathing, no retractions or nasal flaring. Abdomen/GI: Soft, non-tender, with normal bowel sounds. No distension or tympany. No guarding or rebound. No evidence of tenderness throughout. Skin: Warm, dry with normal turgor. Normal color with no rashes, no lesions, and no evidence of cellulitis. MS/ Extremity: Pulses equal, no cyanosis. Neurovascular intact. Full, normal range of motion. Neuro: Awake and alert, GCS 15, oriented to person, place, time, and situation. Cranial nerves II-XII grossly intact. Sensory grossly intact. Vital Signs: 21:11 BP 185 / 71; Pulse 60; Resp 20; Temp 97.9; Pulse Ox 98% on R/A; Weight 68.04 kg; Height tl2 5 ft. 5 in. (165.10 cm); Pain 5/10; 22:17 BP 154 / 81; Pulse 70; Resp 18; Pulse Ox 98% on R/A; ea 22:19 BP 154 / 81; Pulse 74; Resp 18; Pulse Ox 98% on R/A; tl2 23:05 BP 148 / 56; Pulse 61; Resp 16; Pulse Ox 98% ; ea 02/10 00:26 BP 149 / 64; Pulse 67; Resp 15; Pulse Ox 98% on R/A; ea 01:15 BP 145 / 78; Pulse 60; Resp 18; Pulse Ox 99% ; Pain 0/10; ea 02/09 21:11 Body Mass Index 24.96 (68.04 kg, 165.10 cm) tl2 MDM: 02/09 21:25 Patient medically screened. ps1 02/09 21:10 Order name: CBC with Diff; Complete Time: 21:45 ps1 02/09 21:10 Order name: Lipase; Complete Time: 22:12 ps1 02/09 21:10 Order name: Urine Microscopic Only ps1 02/09 21:10 Order name: CMP; Complete Time: 22:12 ps1 02/09 21:10 Order name: Troponin (emerg Dept Use Only); Complete Time: 22:12 ps1 02/10 00:15 Order name: Lipid Profile EDMS 02/09 21:10 Order name: IV Saline Lock; Complete Time: 21:17 ps1 02/10 00:15 Order name: CONS Physician Consult EDMS 02/10 00:15 Order name: NPO EDMS 02/10 00:15 Order name: Echo with Doppler EDMS 02/10 00:15 Order name: Lipid Profile EDMS 02/10 00:26 Order name: Urine Dipstick--Ancillary (enter results) rg2 02/10 01:40 Order name: Urine Dipstick-Ancillary EDNM 02/09 21:10 Order name: Labs collected and sent; Complete Time: 21:17 ps1 02/09 21:10 Order name: Urine Dipstick-Ancillary (obtain specimen); Complete Time: 00:13 ps1 Administered Medications: 21:30 Drug: cloNIDine 0.1 mg {Note: BP 185/71.} Route: PO; tl2 22:30 Follow up: Response: No adverse reaction; Blood pressure is lowered tl2 Disposition: 02/09/18 23:45 Hospitalization ordered by Max Barber for Observation. Preliminary diagnosis are Chest pain, unspecified, Hypertension secondary to other renal disorders. - Bed requested for Telemetry/MedSurg (observation). - Status is Observation. ea - Condition is Stable. - Problem is new. - Symptoms have improved. UTI on Admission? No Signatures: Dispatcher [employer] [facility] Shiloh Bustos RN RN kl Knox, Taylor, RN RN tl2 Sharon Black RN RN ea Singer, Phillip, MD MD ps1 Corrections: (The following items were deleted from the chart) 02/10 00:32 02/09 23:45 Hospitalization Ordered by Max Barber MD for Observation. Preliminary diagnosis is Chest pain, unspecified; Hypertension secondary to other renal disorders. Bed requested for Telemetry/MedSurg (observation). Status is Observation. Condition is Stable. Problem is new. Symptoms have improved. UTI on Admission? No. ps1 02/10 01:56 00:32 02/09/2018 23:45 Hospitalization Ordered by Max Barber MD for Observation. ea Preliminary diagnosis is Chest pain, unspecified; Hypertension secondary to other renal disorders. Bed requested for Telemetry/MedSurg (observation). Status is Observation. Condition is Stable. Problem is new. Symptoms have improved. UTI on Admission? No. kl
[2018-02-10] MEDS ORDERED: ACETAMINOPHEN 500 MG TAB PO PRN (00:09)
[2018-02-10] MEDS ORDERED: HYDRALAZINE HCL 20 MG/ML VIAL IV PRN (00:09)
--- NOTE | 2018-02-10 00:21 | P.HP ---
Certification for Inpatient Patient admitted to: Observation With expected LOS: <2 Midnights Practitioner: I am a practitioner with admitting privileges, knowledge of patient current condition, hospital course, and medical plan of care. Services: Services provided to patient in accordance with Admission requirements found in Title 42 Section 412.3 of the Code of Federal Regulations Patient History Date of Service: 02/10/18 Reason for admission: Chest pain History of Present Illness: Ms Kumari is a 62-year-old woman with history of hypertension, tobacco abuse, who is currently in [facility]. Today a start complaining with headache. Her blood pressure was checked and was found to be elevated about 180 /90 according to the patient's statement. Subsequently, she start having chest pain, located in substernal area, dull, lasting for about 20 min, 5/10 intensity , without radiation. She denied any nausea, vomiting, dizziness, palpitation, shortness of breath or diaphoretic episodes associated with the pain. In ER, EKG shows normal sinus rhythm without ST-T abnormality, initial troponin I is negative. Allergies No Known Allergies Allergy (Unverified 12/20/17 21:02) Home medications list reviewed: Yes - Past Medical/Surgical History -: Hypertension -: Tobacco abuse -: Anxiety Past Surgical History: Reviewed- Non-Contributory - Family History Family History: Reviewed- Non-Contributory - Social History Smoking Status: Current every day smoker Counseled patient to stop smoking for: less than 10 minutes Smoking therapy provided: Yes Patient receptive to therapy: Yes CD- Drugs: No Caffeine use: Yes Place of Residence: Home (She is currently in rehab center, [facility]) Review of Systems 10-point ROS is otherwise unremarkable Physical Examination - Physical Exam General: Alert, In no apparent distress HEENT: Atraumatic, PERRLA, Mucous membr. moist/pink, EOMI, Sclerae nonicteric Neck: Supple, 2+ carotid pulse no bruit, No LAD, Without JVD or thyroid abnormality Respiratory: Clear to auscultation bilaterally, Normal air movement Cardiovascular: Regular rate/rhythm, Normal S1 S2 Gastrointestinal: Normal bowel sounds, No tenderness Musculoskeletal: No tenderness Integumentary: No rashes Neurological: Normal speech, Normal strength at 5/5 x4 extr, Normal tone, Normal affect Lymphatics: No axilla or inguinal lymphadenopathy - Studies Laboratory Data (last 24 hrs) 02/09/18 21:20: Sodium 139, Potassium 3.3 L, BUN 9, Creatinine 0.60, Glucose 87 , Total Bilirubin 0.3, AST 51 H, ALT 70, Alkaline Phosphatase 117, Lipase 376 02/09/18 21:20: WBC 6.5, Hgb 11.5 L, Hct 33.8 L, Plt Count 177 Assessment and Plan - Problems (Diagnosis) (1) Chest pain Current Visit: Yes Status: Acute Qualifiers: Chest pain type: unspecified Qualified Code(s): R07.9 - Chest pain, unspecified (2) Hypertension Current Visit: Yes Status: Acute Qualifiers: Hypertension type: essential hypertension Qualified Code(s): I10 - Essential (primary) hypertension (3) Tobacco abuse Current Visit: Yes Status: Acute - Plan The patient will be admitted to the hospital and ulceration due to chest pain in order to rule out acute coronary syndrome. Initial EKG shows no ST-T abnormality. Cardiac enzymes negative. Will order serial EKG and troponin I, consult Cardiology team, echo. Will resume her home medication once verified. - Advance Directives Does patient have a Living Will: No Does patient have a Durable POA for Healthcare: No - Code Status/Comfort Care Code Status Assessed: Yes Code Status: Full Code
[2018-02-10 01:40] LABS: Urine Blood NEGATIVE (NEG); Urine Glucose NEGATIVE (NEG); Urine Protein NEGATIVE (NEG); Urine Specific Gravity 1.015 (1.005-1.030)
[2018-02-10 03:29] VITALS: O2SAT 98
[2018-02-10 04:47] VITALS: BMI 25.0
[2018-02-10] MEDS ORDERED: LISINOPRIL 10 MG TAB PO SCH (09:00)
[2018-02-10] MEDS ORDERED: ENOXAPARIN 40 MG/0.4 ML SQ SCH (09:00)
[2018-02-10] MEDS ORDERED: ASPIRIN EC 81 MG TAB PO SCH (09:00)
--- NOTE | 2018-02-10 11:49 | EKG ---
Test Date: 2018-02-09 Test Time: 21:06:23 Crawler Dragline Operator: ZAIN MEASUREMENT RESULTS: Intervals: Rate: 57 AL: 134 QRSD: 82 QT: 450 QTc: 438 Britton: P: 58 AL: 134 QRS: 52 T: 80 INTERPRETIVE STATEMENTS: Sinus bradycardia Otherwise normal ECG Compared to ECG 12/20/2017 11:46:20 Sinus rhythm no longer present ST (T wave) deviation no longer present Prolonged QT interval no longer present Electronically Signed On 02-10-18 11:48:15 CDT by Coy Nava
--- NOTE | 2018-02-10 12:04 | ECHO ---
HEIGHT: 5 ft 5 in WEIGHT: 150 lb 0.04 oz DATE OF STUDY: REFER DR: Max Segundo MD 2-DIMENSIONAL: YES M.MODE: YES DOPPLER: YES COLOR FLOW: YES TDS: PORTABLE: DEFINITY: BUBBLE STUDY: DIAGNOSIS: CHEST PAIN CARDIAC HISTORY: CATHERIZATION: NO SURGERY: NO PROSTHETIC VALVE: NO PACEMAKER: NO MEASUREMENTS (cm) DIASTOLIC (NORMALS) SYSTOLIC (NORMALS) IVSd 1.0 (0.6-1.2) LA Diam 3.4 (1.9-4.0) LVEF 73% LVIDd 4.8 (3.5-5.7) LVIDs 2.8 (2.0-3.5) %FS 42% LVPWd 1.2 (0.6-1.2) Ao Diam 2.8 (2.0-3.7) 2 DIMENSIONAL ASSESSMENT: RIGHT ATRIUM: NORMAL LEFT ATRIUM: NORMAL RIGHT VENTRICLE: NORMAL LEFT VENTRICLE: NORMAL TRICUSPID VALVE: NORMAL MITRAL VALVE: NORMAL PULMONIC VALVE: NORMAL AORTIC VALVE: NORMAL PERICARDIAL EFFUSION: NONE AORTIC ROOT: NORMAL LEFT VENTRICULAR WALL MOTION: NORMAL DOPPLER/COLOR FLOW: NORMAL COMMENTS: NORMAL TWO DIMENSIONAL ECHOCARDIOGRAM WITH DOPPLER. NO WALL MOTION ABNORMALITY. NO EFFUSION. TECHNOLOGIST: LUCIANO FISH
[2018-02-10 14:49] VITALS: TEMP 98.5
[2018-02-10 17:26] VITALS: BP 155/71
[2018-02-10] MEDS ORDERED: ATORVASTATIN 40 MG TAB PO SCH (21:00)
--- NOTE | 2018-02-11 09:50 | CON ---
Date of Consultation: 02/10/2018 Reason For Consultation: Chest pain and hypertension. History Of Present Illness: Ms. Kumari is a 62-year-old white woman with history of anxiety, hyperte nsion, and depression. She is in rehab for substance abuse. Came in with hypertension that has reso lved since her blood pressure was 149/64. Had some sharp stabbing chest pain without any nausea, vom iting, diaphoresis, PND, orthopnea, pedal edema, palpitations, or syncope. CPKs, MBs, troponin were negative. Potassium was 3.3. Her EKG showed nonspecific changes. X-ray is negative. Past Medical History: As stated earlier. Allergies: NONE. Review of Systems: Negative. Social History: Positive for substance abuse and rehab. Family History: Negative. Medications At Home: Norvasc, Proscar, and buspirone. Physical Examination: Vital Signs: Stable and afebrile. HEENT: Negative. Neck: Supple, no bruit. Chest: Clear to auscultation and percussion. Cardiac: Revealed a regular rhythm and rate without any murmurs, gallops, or rubs. Abdomen: Benign. Extremities: Revealed no clubbing, cyanosis, or edema. Diagnostic Data: As stated earlier. Impression And Plan: 1.Chest pain, more likely pleuritic. 2.Hypertension. 3.Anxiety and depression. The patient has ruled out for an [place]. There is an echocardiogram pending today. We will see what that shows prior to making any final decision. Certainly, an outpatient [facility] iscan is reasonable to obtain considering her risk factors. LEDA Voice ID: [id number] Report ID: [id number]
== END 2018-02-10 17:09 | disposition home or self-care (01) ==
LOC: ER 20:58 → ERHOLD 02-10 00:11 → 4TH 02-10 00:35
PROVIDERS: ADMIT Internal Medicine; ATTEND Internal Medicine
DX: R07.9 Chest pain, unspecified (principal); I10 Essential (primary) hypertension; F17.210 Nicotine dependence, cigarettes, uncomplicated; F41.8 Other specified anxiety disorders
CPT/HCPCS: 36415; 80053; 80061; 81003; 83690; 84484; 85025; 93005; 93306; 99285; G0378

== ENCOUNTER 2018-12-07 13:39 | Emergency (ER) | payer OTHER ==
[2018-12-07] MEDS ORDERED: NA CHLORIDE 0.9% 1,000 ML ONE (14:19)
[2018-12-07] MEDS ORDERED: LORazepam 2 MG/ML VIAL ONE (15:03)
[2018-12-07 16:38] LABS: Basophils % 0.6 % (0-1.3); Eosinophils % 0.9 % (0-4.4); Hematocrit 35.5 % (36.0-45.0); MPV 8.3 fL (7.6-11.3); Monocytes % 11.7 % (3.3-12.3); RBC Red Blood Cell Count 3.88 M/uL (3.86-4.86)
[2018-12-07 16:41] LABS: Protime INR 1.03
[2018-12-07] MEDS ORDERED: CEFTRIAXONE/SWI 1gm 1 GM/10 ML SYR ONE (16:51)
[2018-12-07 16:56] LABS: Barbiturates NEGATIVE (NEGATIVE); Benzodiazepines NEGATIVE (NEGATIVE); Cocaine NEGATIVE (NEGATIVE); METHAMPHETAM POSITIVE (NEGATIVE); Methadone NEGATIVE (NEGATIVE); Opiates NEGATIVE (NEGATIVE); Phencyclidine NEGATIVE (NEGATIVE); THC Cannibis POSITIVE (NEGATIVE)
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
[2018-12-07 18:03] LABS: ALT/SGPT 49 U/L (12-78); AST/SGOT 41 U/L (15-37); Albumin 3.2 g/dL (3.4-5.0); Alkaline Phosphatase 114 U/L (45-117); BUN Blood Urea Nitrogen 8 mg/dL (7-18); Bicarbonate 25 mmol/L (21-32); Bilirubin Direct < 0.1 mg/dL (0-0.2); Bilirubin Total 0.3 mg/dL (0.2-1.0); Glucose Level 101 mg/dL (74-106); Potassium 3.7 mmol/L (3.5-5.1); Protein, Total 6.8 g/dL (6.4-8.2); Sodium Level 138 mmol/L (136-145)
[2018-12-07 20:09] LABS: Urine Blood TRACE (NEG); Urine Glucose NEGATIVE (NEG); Urine Protein NEGATIVE (NEG); Urine Specific Gravity <1.005 (1.005-1.030)
[2018-12-07 20:39] VITALS: BP 142/72; TEMP 98.6; O2SAT 96
--- NOTE | 2018-12-08 08:54 | EKG ---
Test Date: 2018-12-07 Test Time: 15:50:06 Barback: DIANA MEASUREMENT RESULTS: Intervals: Rate: 91 GA: 176 QRSD: 88 QT: 424 QTc: 521 [place]: P: 82 GA: 176 QRS: 79 T: 91 INTERPRETIVE STATEMENTS: Normal sinus rhythm Nonspecific T wave abnormality Prolonged QT Abnormal ECG Compared to ECG 12/07/2018 15:47:56 No significant changes Electronically Signed On 12-08-18 08:52:48 CDT by Coy Nava
--- NOTE | 2018-12-08 08:55 | EKG ---
Test Date: 2018-12-07 Test Time: 15:47:56 Print Decorator: DIANA MEASUREMENT RESULTS: Intervals: Rate: 80 ND: 166 QRSD: 92 QT: 426 QTc: 491 [place]: P: 82 ND: 166 QRS: 84 T: 90 INTERPRETIVE STATEMENTS: Normal sinus rhythm Nonspecific T wave abnormality Prolonged QT Abnormal ECG Compared to ECG 02/09/2018 21:06:23 T-wave abnormality now present Prolonged QT interval now present Sinus bradycardia no longer present Electronically Signed On 12-08-18 08:52:50 CDT by Coy Nava
== END 2018-12-07 20:13 | disposition home or self-care (01) ==
LOC: ER 13:39
DX: F43.21 Adjustment disorder with depressed mood (principal); F55.8 Abuse of other non-psychoactive substances; F15.10 Other stimulant abuse, uncomplicated; N39.0 Urinary tract infection, site not specified; F17.210 Nicotine dependence, cigarettes, uncomplicated; F41.9 Anxiety disorder, unspecified; F32.9 Major depressive disorder, single episode, unspecified; I10 Essential (primary) hypertension
CPT/HCPCS: 96365; 96361; 93005 ×2; 87088; 85025; 87086; 80048; 36415; 80320; 80329 ×2; 85610; 80076; 80307 ×8; 85730; 81003; 96375; 99284; J0696; J7030

== ENCOUNTER 2019-09-13 14:11 | Emergency (ER) | payer OTHER ==
[2019-09-13 15:08] LABS: Absolute Lymphocytes (CBC) 1.2 K/uL (0.7-4.9); Basophils % 0.4 % (0-1.3); Hematocrit 32.3 % (36.0-45.0); Lymphocytes % 16.4 % (15.3-44.8); MPV 9.5 fL (7.6-11.3)
[2019-09-13 15:22] LABS: ALT/SGPT 58 U/L (12-78); AST/SGOT 62 U/L (15-37); Albumin 3.6 g/dL (3.4-5.0); Alkaline Phosphatase 67 U/L (45-117); BUN Blood Urea Nitrogen 4 mg/dL (7-18); Bicarbonate 23 mmol/L (21-32); Bilirubin Direct 0.2 mg/dL (0-0.2); Bilirubin Total 0.3 mg/dL (0.2-1.0); CKMB Creatine Kinase MB < 1.0 ng/mL (0.3-3.6); Creatine Phosphokinase 51 U/L (26-192); Glucose Level 151 mg/dL (74-106); Lipase 152 U/L (73-393); Magnesium 1.8 mg/dL (1.8-2.4); NT PRO-BNP 117 pg/mL (<125); Potassium 3.5 mmol/L (3.5-5.1); Protein, Total 8.2 g/dL (6.4-8.2); Sodium Level 136 mmol/L (136-145); Troponin (Emerg Dept Use Only) < 0.02 ng/mL (0.0-0.045)
--- NOTE | 2019-09-13 15:31 | RAD REPORT ---
EXAM DESCRIPTION: RAD - Chest Single View - 09/13/2019 3:21 pm CLINICAL HISTORY: COUGH Chest pain. COMPARISON: CHEST SINGLE VIEW dated 01/09/2014 FINDINGS: Portable technique limits examination quality. The lungs are grossly clear. The heart is normal in size. Old right-sided rib fractures. IMPRESSION: No acute intrathoracic process suspected.
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
--- NOTE | 2019-09-13 19:11 | EDPHYS ---
Physician Documentation [facility] Name: Lakeisha Kumari Age: 64 yrs Sex: Female : 1955 Arrival Date: 09/13/2019 Time: 14:27 Bed 2 Private MD: ED Physician Wale Brady HPI: 09/12 18:42 This 64 yrs old Female presents to ER via EMS with complaints of cough and kdr congestion for three weeks - states she is homeless and has nowhere to go.. 18:42 The patient or guardian reports cough, that is intermittent, described as mild, kdr difficulty breathing. Onset: The symptoms/episode began/occurred gradually, 3 week(s) ago. Severity of symptoms: At their worst the symptoms were mild, in the emergency department the symptoms. Historical: - Allergies: 14:53 No Known Allergies; ls4 - PMHx: 14:53 Anxiety; Depression; Hypertension; Hepatitis; Alcoholism; ls4 - PSHx: 14:53 jaw sx; Cholecystectomy; Hysterectomy; ls4 - Immunization history:: Adult Immunizations unknown, Last tetanus immunization: unknown, Pneumococcal vaccine status is unknown, Flu vaccine is not up to date. It has been more than one year since last vaccine. - Social history:: Smoking status: Patient reports the use of cigarette tobacco products, smokes one pack cigarettes per day. Patient uses alcohol, on a daily basis. admits to "couple of beers" a day. patient/guardian reports chronic longstanding heavy alcohol consumption. Vital Signs: 14:27 BP 163 / 82; Pulse 84; Resp 17; Temp 99.0(O); Pulse Ox 98% on R/A; Weight 54.43 kg; ls4 Height 5 ft. 3 in. (160.02 cm); Pain 6/10; 15:30 BP 177 / 82; Pulse 77; Resp 14; Pulse Ox 96% ; Pain 5/10; ls4 17:57 BP 161 / 94; Pulse 73; Resp 17; Temp 97.6(O); Pulse Ox 96% on R/A; Pain 5/10; ls4 18:45 BP 149 / 78; Pulse 82; Resp 14; Pulse Ox 97% on R/A; Pain 4/10; ls4 14:27 Body Mass Index 21.26 (54.43 kg, 160.02 cm) ls4 MDM: 19:10 Patient medically screened. kdr 09/12 14:45 Order name: Blood Culture Adult (2) 4 09/12 14:45 Order name: BMP [facility] 09/12 14:45 Order name: Ckmb; Complete Time: 16:13 [facility] 09/12 14:45 Order name: CPK; Complete Time: 16:13 [facility] 09/12 14:45 Order name: Hepatic Function; Complete Time: 16:13 [facility] 09/12 14:45 Order name: Lipase; Complete Time: 16:13 [facility] 09/12 14:45 Order name: Magnesium; Complete Time: 16:13 [facility] 09/12 14:45 Order name: NT PRO-BNP; Complete Time: 16:13 [facility] 09/12 14:45 Order name: PT-INR; Complete Time: 16:13 [facility] 09/12 14:45 Order name: Ptt, Activated; Complete Time: 16:13 [facility] 09/12 14:45 Order name: Troponin (emerg Dept Use Only); Complete Time: 16:13 [facility] 09/12 14:46 Order name: Blood Culture [facility] 09/12 14:46 Order name: Basic Metabolic Panel; Complete Time: 16:13 [facility] 09/12 14:45 Order name: EKG; Complete Time: 14:46 [facility] 09/12 14:45 Order name: Cardiac monitoring; Complete Time: 16:51 [facility] 09/12 14:45 Order name: EKG - Nurse/Tech; Complete Time: 16:51 [facility] 09/12 14:45 Order name: IV Saline Lock; Complete Time: 16:51 [facility] 09/12 14:45 Order name: Labs collected and sent; Complete Time: 16:51 [facility] 09/12 14:45 Order name: O2 Per Protocol; Complete Time: 19:31 [facility] 09/12 14:45 Order name: O2 Sat Monitoring; Complete Time: 19:31 [facility] 09/12 14:46 Order name: CBC with Automated Diff; Complete Time: 16:13 [facility] 09/12 14:46 Order name: XRAY Chest (1 view); Complete Time: 16:13 [facility] 09/12 14:51 Order name: Lactate; Complete Time: 16:13 [facility] 09/12 14:51 Order name: Procalcitonin; Complete Time: 16:13 [facility] 09/12 15:09 Order name: COVID-19 kdr 09/12 18:54 Order name: Lactate Sepsis 2 HR Follow-up; Complete Time: 19:07 EDAR Administered Medications: No medications were administered Disposition: 09/13/19 19:10 Discharged to Home. Impression: Cough, Viral infection of unspecified site. - Condition is Stable. - Discharge Instructions: Cough, Adult, [id number]. - Prescriptions for Tessalon Perles 100 mg Oral Capsule - take 1 capsule by ORAL route every 8 hours As needed; 15 capsule. - Medication Reconciliation Form, Thank You Letter form. - Follow up: Private Physician; When: 2 - 3 days; Reason: If symptoms return, Further diagnostic work-up, Recheck today's complaints, Continuance of care, Re-evaluation by your physician. - Problem is an ongoing problem. - Symptoms have improved. Signatures: Dispatcher [employer] [facility] Wale Brady MD MD kdr Adeola Bartholomew RN RN iw Evelyn Leger RN RN ls4 Mejia, Anitha lt1 Corrections: (The following items were deleted from the chart) 16:52 14:46 CBC+H.LAB.BRZ ordered. [facility] EDAR 19:47 19:10 09/13/2019 19:10 Discharged to Home. Impression: Cough; Viral infection of lt1 unspecified site. Condition is Stable. Forms are Medication Reconciliation Form, Thank You Letter, Antibiotic Education, Prescription Opioid Use. Follow up: Private Physician; When: 2 - 3 days; Reason: If symptoms return, Further diagnostic work-up, Recheck today's complaints, Continuance of care, Re-evaluation by your physician. Problem is an ongoing problem. Symptoms have improved. kdr
[2019-09-13 19:59] VITALS: TEMP 97.6
[2019-09-13 20:00] VITALS: BP 149/78; O2SAT 97
--- NOTE | 2019-09-14 07:37 | EKG ---
Test Date: 2019-09-13 Test Time: 14:50:40 Bolt Sorter: NICHOLAS MEASUREMENT RESULTS: Intervals: Rate: 81 NC: 160 QRSD: 80 QT: 394 QTc: 457 [place]: P: 79 NC: 160 QRS: 77 T: 82 INTERPRETIVE STATEMENTS: Sinus rhythm with marked sinus arrhythmia Otherwise normal ECG Compared to ECG 12/07/2018 15:50:06 T-wave abnormality no longer present Prolonged QT interval no longer present Electronically Signed On 09-14-19 07:34:51 CDT by Coy Nava
== END 2019-09-13 19:47 | disposition home or self-care (01) ==
LOC: ER 14:11
DX: B34.9 Viral infection, unspecified (principal); I10 Essential (primary) hypertension; F10.20 Alcohol dependence, uncomplicated; F17.210 Nicotine dependence, cigarettes, uncomplicated; Z03.818 Encounter for observation for suspected exposure to other biological agents ruled out
CPT/HCPCS: 93005; 87040 ×2; 85025; 80048; 36415; 83735; 82550; 87205 ×4; 85610; 80076; 83605 ×2; 85730; 87077 ×2; 87186 ×2; 84484; 82553; 83690; 84145; 83880; 71045; 99285; U0001

== ENCOUNTER 2019-12-24 10:12 | Emergency (ER) | payer OTHER ==
[2019-12-24 10:49] LABS: Basophils % 1.2 % (0-1.3); Hematocrit 36.7 % (36.0-45.0); Lymphocytes % 5.5 % (15.3-44.8); MPV 9.5 fL (7.6-11.3); RBC Red Blood Cell Count 5.23 M/uL (3.86-4.86)
[2019-12-24] MEDS ORDERED: NA CHLORIDE 0.9% 1,000 ML with FOLIC ACID 1 MG, THIAMINE HCL 100 MG, MULTIVITAMINS INJ ... IV SCH ×4 (11:00)
[2019-12-24 11:09] LABS: Albumin 3.2 g/dL (3.4-5.0); Bilirubin Direct 0.3 mg/dL (0-0.2); Bilirubin Total 0.8 mg/dL (0.2-1.0); Protein, Total 8.3 g/dL (6.4-8.2)
[2019-12-24 11:11] LABS: Potassium 2.6 mmol/L (3.5-5.1)
--- NOTE | 2019-12-24 12:26 | RAD REPORT ---
EXAM DESCRIPTION: CT - Chest Abdomen W Con - 12/24/2019 11:44 am CLINICAL HISTORY: Chest and abdominal pain COMPARISON: 2013 cat scan TECHNIQUE: Computed axial tomography the chest and abdomen obtained. 100 cc Isovue-300 administered intravenously. Oral contrast not given which limits evaluation bowel. All CT scans are performed using dose optimization technique as appropriate and may include automated exposure control or mA/KV adjustment according to patient size. FINDINGS: A tiny left lung nodule unchanged is benign. Right lung is clear. No mediastinal or hilar lymphadenopathy is seen A pleural effusion is not seen. A pericardial effusion is not present. Old rib fractures Cholecystectomy Cirrhotic liver. The portal vein is patent. Upper quadrant varices. Recannulization of the umbilical vein. The wall of the gastric body and antrum is markedly thickened. Probable ulceration within the posteri or wall of the distal stomach. Fluid is present within the lesser sac adjacent to the stomach Spleen, pancreas, left adrenal and kidneys unremarkable. 13 millimeter right adrenal nodule is slight ly enlarged. A ventral hernia contains transverse colon. Moderate stranding within the herniated fat. The neck raad sures 5 centimeters. Diastases of the rectus abdominis muscle present Small amount of ascites. Calcified plaque right common iliac artery results in a high-grade stenosis IMPRESSION: Probable ulceration within the posterior wall of the distal stomach. It is recommended t hat the patient have a CT scan of the abdomen with oral contrast and opacification of the stomach to determine if a perforation is present. Marked thickening of the wall of the stomach probably indicati ng inflammation. Ventral hernia contains colon. Moderate stranding within the herniated fat
[2019-12-24 12:52] LABS: Anisocytosis 1+; Blood Morphology Comment NOTED (NOT SEEN); Hypochromasia 1+; Platelet Estimate ADEQ; Urine White Blood Cell Casts OK
--- NOTE | 2019-12-24 14:39 | RAD REPORT ---
EXAM DESCRIPTION: CT - Abdomen Wo Contrast - 12/24/2019 2:26 pm CLINICAL HISTORY: Rad request to r/o perforation;Abd pain , abnormal CT chest COMPARISON: Chest Abdomen W Con dated 12/24/2019 TECHNIQUE: Axial [address] imaging of the abdomen was performed. Or Oral contrast was a dministered. All CT scans are performed using dose optimization technique as appropriate and may include automated exposure control or mA/KV adjustment according to patient size. FINDINGS: Lung base findings are detailed on the CT chest report performed earlier. Liver has a nodular contour. No focal lesions seen on noncontrast imaging. No spleen or pancreatic ab normality. Cholecystectomy clips are present. No biliary tree dilatation. Contrast is present in the system from prior CT chest contrast study. No acute renal parenchymal p rocess seen. Pyelonephritis is not suspected. No renal parenchymal mass. No adrenal abnormality. Thickened nodular wall is present along the mid and distal portion of the greater curvature of the st omach. Extraluminal air extends through the posterior wall of the gastric antrum. No extravasation of the oral contrast. This is most likely a perforated gastric ulcer that has sealed at the surface. Gi deyanira the thickened irregular gastric wall, gastric wall malignancy with perforation is not excluded. Free intraperitoneal fluid is present. No free air seen outside of the immediate posterior wall gastr ic antrum region. There is some fluid and stranding in the adjacent fatty tissues. There is minimal s econdary involvement of the transverse colon with mild wall thickening and stranding. Upper abdominal ventral hernia is present 5 cm in size with a 5 centimeter neck. Anterior wall of the stomach in the mid transverse colon extend into the hernia defect. Several distended and mildly dilated small bowel loops are present No suspicious bony findings. Exam sensitivity is decreased when no IV contrast is administered. IMPRESSION: Perforation of the posterior wall of the gastric antrum. The mid and distal greater curv ature of the stomach is thickened and nodular. Perforation may be related to gastric ulcer disease or potentially from malignancy. There is no extravasation of the oral contrast through the perforation. Extraluminal air remains int ermediate proximity to the posterior wall antrum. Small amount of ascites in the upper abdomen adjacent to the liver and spleen. Mild wall thickening and edema of the transverse colon believed to be secondary to the gastric proces s. The mildly dilated small bowels are also believed to be secondary to the stomach. 5 centimeter diameter ventral hernia at the level of the stomach is present. Anterior wall of the sto mach and mid transverse colon extend through this very wide neck hernia defect.
[2019-12-24] MEDS ORDERED: KCL 20 MEQ/100 mL IVPB 20 MEQ/100 ML BAG IV ONE (16:27)
[2019-12-24] MEDS ORDERED: NA CHLORIDE 0.9% 1,000 ML with POTASSIUM CL 40 MEQ IV SCH ×2 (17:00)
--- NOTE | 2019-12-24 17:25 | EDPHYS ---
Physician Documentation [facility] Name: Lakeisha Kumari Age: 64 yrs Sex: Female : 1955 Arrival Date: 12/24/2019 Time: 10:14 Bed 14 Private MD: ED Physician Ortiz Woods HPI: 12/23 13:46 This 64 yrs old Female presents to ER via EMS with complaints of Abdominal snw Pain. 13:46 The patient presents with abdominal pain that is diffuse. Onset: The symptoms/episode snw began/occurred gradually, 1 month(s) ago, and became persistent. The symptoms do not radiate. Associated signs and symptoms: none. The symptoms are described as crampy. Severity of pain: At its worst the pain was moderate. The patient has experienced similar episodes in the past. tested for CoVid recently. Historical: - Allergies: 10: No Known Allergies; ca1 - PMHx: 10: Alcoholism; Anxiety; Depression; Hepatitis; Hypertension; Atrial Fib; ca1 - PSHx: : jaw sx; Cholecystectomy; Hysterectomy; ca1 - Immunization history:: Adult Immunizations not up to date. - Social history:: Smoking status: Patient reports the use of cigarette tobacco products, smokes one pack cigarettes per day. ROS: 13:46 Constitutional: Negative for fever, chills, and weight loss, Eyes: Negative for injury, snw pain, redness, and discharge, ENT: Negative for injury, pain, and discharge, Neck: Negative for injury, pain, and swelling, Cardiovascular: Negative for chest pain, palpitations, and edema, Respiratory: Negative for shortness of breath, cough, wheezing, and pleuritic chest pain, Back: Negative for injury and pain, : Negative for injury, bleeding, discharge, and swelling, MS/Extremity: Negative for injury and deformity, Skin: Negative for injury, rash, and discoloration, Neuro: Negative for headache, weakness, numbness, tingling, and seizure, Psych: Negative for depression, anxiety, suicide ideation, homicidal ideation, and hallucinations. 13:46 Abdomen/GI: Positive for abdominal pain, abdominal cramps, abdominal distension, flatulence. Exam: 13:43 Head/Face: Normocephalic, atraumatic. Eyes: Pupils equal round and reactive to light, snw extra-ocular motions intact. Lids and lashes normal. Conjunctiva and sclera are non-icteric and not injected. Cornea within normal limits. Periorbital areas with no swelling, redness, or edema. ENT: Nares patent. No nasal discharge, no septal abnormalities noted. Tympanic membranes are normal and external auditory canals are clear. Oropharynx with no redness, swelling, or masses, exudates, or evidence of obstruction, uvula midline. Mucous membranes moist. Neck: Trachea midline, no thyromegaly or masses palpated, and no cervical lymphadenopathy. Supple, full range of motion without nuchal rigidity, or vertebral point tenderness. No Meningismus. Chest/axilla: Normal chest wall appearance and motion. Nontender with no deformity. No lesions are appreciated. 13:43 Abdomen/GI: tender, with normal bowel sounds. Mild distension, nr tympany. Umbilical hernia, tense at left lateral border of hernia Back: No spinal tenderness. No costovertebral tenderness. Full range of motion. Skin: Warm, dry with normal turgor. Normal color with no rashes, no lesions, and no evidence of cellulitis. MS/ Extremity: Pulses equal, no cyanosis. Neurovascular intact. Full, normal range of motion. Neuro: Awake and alert, GCS 15, oriented to person, place, time, and situation. Cranial nerves II-XII grossly intact. Motor strength 5/5 in all extremities. Sensory grossly intact. Cerebellar exam normal. Normal gait. Psych: Awake, alert, with orientation to person, place and time. Behavior, mood, and affect are within normal limits. 13:43 Constitutional: The patient appears alert, awake, unkempt. 13:43 Cardiovascular: Rate: tachycardic, Rhythm: regular. 13:43 Respiratory: the patient does not display signs of respiratory distress, Respirations: shallow respirations, tachypnea, Breath sounds: are clear throughout. Vital Signs: 10:14 BP 176 / 103; Pulse 117; Resp 19; Temp 97(TE); Pulse Ox 100% on R/A; Weight 58.97 kg; ca1 Height 5 ft. 3 in. (160.02 cm) (R); 10:55 BP 118 / 83; Pulse 99; Resp 18 S; Pulse Ox 98% on R/A; ca1 11:50 BP 158 / 79; Pulse 83; Resp 18 S; Pulse Ox 99% on R/A; ca1 13:12 BP 167 / 95; Pulse 114; Resp 17 S; Pulse Ox 100% on R/A; ca1 14:10 BP 177 / 90; Pulse 110; Resp 18 S; Pulse Ox 100% on R/A; ca1 15:17 BP 137 / 82; Pulse 108; Resp 18 S; Pulse Ox 98% on R/A; ca1 16:29 BP 130 / 86; Pulse 108; Resp 18 S; Pulse Ox 97% on R/A; ca1 18:20 BP 123 / 89; Pulse 89; Resp 17 S; Pulse Ox 97% on R/A; ca1 19:29 BP 152 / 84; Pulse 105; Resp 17 S; Pulse Ox 98% on R/A; jd3 10:14 Body Mass Index 23.03 (58.97 kg, 160.02 cm) ca1 MDM: 11:18 Patient medically screened. snw 15:08 Data reviewed: vital signs, nurses notes. Data interpreted: Pulse oximetry: on room air snw is 100 %. Interpretation: normal. Counseling: I had a detailed discussion with the patient and/or guardian regarding: the historical points, exam findings, and any diagnostic results supporting the discharge/admit diagnosis, lab results, radiology results, the need to transfer to another facility, for higher level of care, [facility] does not immediately have the required specialist. Response to treatment: sleeping in no distress at this time. Dr. Woods will speak with Dr. Newman re: results of CT. Physician consultation: Arturo Newman MD was called at 15:11, was contacted at 15:12, regarding consult, patient's condition, after a discussion of the case, a recommendation for transfer for higher level of care is made. 15:49 Physician consultation: Jamaal Stuart was called at 15:50, was contacted at 15:50, regarding snw regarding transfer, to [facility]. patient's condition. 16:00 Physician consultation: Heena Lyn was called at 16:00, was contacted at 16:00, regarding snw regarding transfer, to [facility]. kindly accepts pt in transfer. 12/23 10:25 Order name: Basic Metabolic Panel; Complete Time: 11:12 snw 12/23 10:25 Order name: CBC with Diff; Complete Time: 12:53 snw 12/23 10:25 Order name: Hepatic Function; Complete Time: 11:12 snw 12/23 10:25 Order name: Lipase; Complete Time: 11:12 snw 12/23 12:52 Order name: CBC Smear Scan; Complete Time: 12:53 EDMS 12/23 15:17 Order name: COVID-19 snw 12/23 11:17 Order name: CT Chest Abdomen W/ Contrast; Complete Time: 12:32 snw 12/23 12:55 Order name: Abdomen Wo Contrast; Complete Time: 14:43 EDMS 12/23 16:02 Order name: Potassium; Complete Time: 17:03 snw 12/23 16:10 Order name: Lactate snw 12/23 16:12 Order name: Lactate; Complete Time: 17:22 EDMS 12/23 10:25 Order name: IV Saline Lock; Complete Time: 10:27 snw 12/23 10:25 Order name: Labs collected and sent; Complete Time: 10:32 snw 12/23 14:58 Order name: NPO; Complete Time: 15:03 snw 12/23 15:52 Order name: EKG; Complete Time: 15:53 snw 12/23 15:52 Order name: EKG - Nurse/Tech; Complete Time: 16:18 snw Administered Medications: 10:54 Drug: Banana Bag - (NS 0.9% 1000 ml, foLIC Acid 1 mg, Thiamine 100 mg, Multivitamin 1 ca1 amp) Route: IV; Rate: 125 calculated rate; Site: right upper arm; 19:33 Follow up: Response: No adverse reaction; IV Status: Infusion continued upon transfer jd3 16:58 Drug: NS 0.9% with KCl 40 mEq/L 1000 ml Route: IV; Rate: 250 ml/hr; Site: left ca1 antecubital; 19:32 Follow up: Response: No adverse reaction; IV Status: Infusion continued upon transfer jd3 16:59 Drug: Potassium Chloride 20 mEq Route: IV; Rate: calculated rate; Site: left ca1 antecubital; 19:32 Follow up: Response: No adverse reaction; IV Status: Infusion continued upon transfer jd3 17:23 Drug: fentaNYL (PF) 25 mcg Route: IVP; Site: left antecubital; ca1 19:00 Follow up: Response: No adverse reaction jd3 17:35 Drug: NS 0.9% 500 ml Route: IV; Rate: bolus; Site: right upper arm; ca1 19:00 Follow up: Response: No adverse reaction; IV Status: Completed infusion; IV Intake: jd3 500ml Disposition: 12/24 07:08 Co-signature as Attending Physician, Ortiz Woods MD. rn Disposition: 12/24/19 17:[address] [facility]. Diagnosis are Chronic or unspecified gastric ulcer with perforation, Hypokalemia, Dehydration, Other abdominal hernia. - Reason for transfer: Higher level of care. - Accepting physician is Dr. Sherie Lyn. - Condition is Stable. - Problem is new. - Symptoms are unchanged. Signatures: Dispatcher [employer] EDMS Beth Barnard, CUFF FOLDER-C CUFF FOLDER-Csnw Ortiz Woods MD MD rn Davies, Jonathon, RN RN jd3 Lisa Saba RN RN ca1 Corrections: (The following items were deleted from the chart) 12/23 12:51 12:40 Abdomen W/ Con+CT.RAD.BRZ ordered. EDMS EDMS 12:55 12:41 Abdomen W Contrast ordered. EDMS EDMS 19:33 17:25 12/24/2019 17:[address] [facility]. jd3 Diagnosis is Chronic or unspecified gastric ulcer with perforation; Hypokalemia; Dehydration; Other abdominal hernia. Reason for transfer: Higher level of care. Accepting physician is Dr. Sherie Lyn. Condition is Stable. Problem is new. Symptoms are unchanged. snw
--- NOTE | 2019-12-24 17:25 | ER ---
Nurse's Notes [facility] Name: Lakeisha Kumari Age: 64 yrs Sex: Female : 1955 Arrival Date: 12/24/2019 Time: 10:14 Bed 14 Private MD: Diagnosis: Chronic or unspecified gastric ulcer with perforation;Hypokalemia;Dehydration;Other abdominal hernia Presentation: 12/23 10:14 Chief complaint: EMS states: Abdominal pain x 1 yr. Came to the ER 2 months ago for ca1 abdl pain, has been progressive since then. Hx of hernia, hep C. C/O trouble breathing, SpO2 at 100% RA. Auscultated wheezing on L upper lung, Rales bilateral lower lungs. At the ambulance, pt c/o CP, shoulder and back pain. Hx of A-fib. VS BP 162/104, HR 102-108, SPO2 at 100% at 2LPM. Coronavirus screen: Patient denies a cough. Patient reports shortness of breath or difficulty breathing. Patient denies measured and/or subjective temperature greater than 100.4F prior to today's visit. Patient denies travel on a cruise ship or to a country the [facility] currently lists as an affected area. Patient denies contact with known and/or suspected case of COVID-19. Proceed with normal triage. Ebola Screen: Patient negative for fever greater than or equal to 101.5 degrees Fahrenheit, and additional compatible Ebola Virus Disease symptoms Patient denies exposure to infectious person. Patient denies travel to an Ebola-affected area in the 21 days before illness onset. No symptoms or risks identified at this time. Initial Sepsis Screen: Does the patient meet any 2 criteria? No. Patient's initial sepsis screen is negative. Does the patient have a suspected source of infection? No. Patient's initial sepsis screen is negative. Risk Assessment: Do you want to hurt yourself or someone else? Patient reports no desire to harm self or others. Onset of symptoms was December 24, 2019. 10:14 Method Of Arrival: EMS: [facility] ca1 10:14 Acuity: KVNG 3 ca1 Historical: - Allergies: 10:21 No Known Allergies; ca1 - PMHx: 10:21 Alcoholism; Anxiety; Depression; Hepatitis; Hypertension; Atrial Fib; ca1 - PSHx: 10:21 jaw sx; Cholecystectomy; Hysterectomy; ca1 - Immunization history:: Adult Immunizations not up to date. - Social history:: Smoking status: Patient reports the use of cigarette tobacco products, smokes one pack cigarettes per day. Screenin:21 Abuse screen: Denies threats or abuse. Denies injuries from another. Nutritional ca1 screening: No deficits noted. Tuberculosis screening: No symptoms or risk factors identified. Fall Risk IV access (20 points). Assessment: 10:22 General: Appears in no apparent distress. uncomfortable, Behavior is cooperative, ca1 appropriate for age. Pain: Complains of pain in abdomen Is chronic. Neuro: Level of Consciousness is awake, alert, obeys commands, Oriented to person, place, time, situation. Cardiovascular: Heart tones S1 S2 present Capillary refill < 3 seconds Patient's skin is warm and dry. Respiratory: Reports shortness of breath Airway is patent Respiratory effort is even, unlabored, Respiratory pattern is regular, symmetrical, Breath sounds with rales in left posterior lower lobe and right posterior lower lobe Breath sounds with wheezes in left posterior upper lobe. GI: Abdomen is round non-distended, Hernia noted Bowel sounds present X 4 quads. Abd is soft X 4 quads. : No signs and/or symptoms were reported regarding the genitourinary system. EENT: No signs and/or symptoms were reported regarding the EENT system. Derm: Skin is intact, is healthy with good turgor, Skin is pink, warm \T\ dry. Musculoskeletal: Circulation, motion, and sensation intact. Capillary refill < 3 seconds. 11:30 Reassessment: Patient appears in no apparent distress at this time. Patient and/or ca1 family updated on plan of care and expected duration. Pain level reassessed. Patient is alert, oriented x 3, equal unlabored respirations, skin warm/dry/pink. 12:30 Reassessment: Patient appears in no apparent distress at this time. Patient and/or ca1 family updated on plan of care and expected duration. Pain level reassessed. Patient is alert, oriented x 3, equal unlabored respirations, skin warm/dry/pink. 13:30 Reassessment: Patient appears in no apparent distress at this time. Patient and/or ca1 family updated on plan of care and expected duration. Pain level reassessed. Patient is alert, oriented x 3, equal unlabored respirations, skin warm/dry/pink. 14:14 Reassessment: Patient appears in no apparent distress at this time. Patient and/or ca1 family updated on plan of care and expected duration. Pain level reassessed. Patient is alert, oriented x 3, equal unlabored respirations, skin warm/dry/pink. 15:16 Reassessment: Patient appears in no apparent distress at this time. Patient and/or ca1 family updated on plan of care and expected duration. Pain level reassessed. Patient is alert, oriented x 3, equal unlabored respirations, skin warm/dry/pink. 16:29 Reassessment: Patient appears in no apparent distress at this time. Patient and/or ca1 family updated on plan of care and expected duration. Pain level reassessed. Patient is alert, oriented x 3, equal unlabored respirations, skin warm/dry/pink. 16:55 Reassessment: Report given to ELEONORA Lozano at [facility]. ca1 17:13 Reassessment: Patient appears in no apparent distress at this time. Patient is alert, ca1 oriented x 3, equal unlabored respirations, skin warm/dry/pink. 18:20 Reassessment: Patient appears in no apparent distress at this time. Patient and/or ca1 family updated on plan of care and expected duration. Pain level reassessed. Patient is alert, oriented x 3, equal unlabored respirations, skin warm/dry/pink. 19:29 Reassessment: Patient appears in no apparent distress at this time. Patient and/or jd3 family updated on plan of care and expected duration. Pain level reassessed. Patient is alert, oriented x 3, equal unlabored respirations, skin warm/dry/pink. report given to EMS. Vital Signs: 10:14 BP 176 / 103; Pulse 117; Resp 19; Temp 97(TE); Pulse Ox 100% on R/A; Weight 58.97 kg; ca1 Height 5 ft. 3 in. (160.02 cm) (R); 10:55 BP 118 / 83; Pulse 99; Resp 18 S; Pulse Ox 98% on R/A; ca1 11:50 BP 158 / 79; Pulse 83; Resp 18 S; Pulse Ox 99% on R/A; ca1 13:12 BP 167 / 95; Pulse 114; Resp 17 S; Pulse Ox 100% on R/A; ca1 14:10 BP 177 / 90; Pulse 110; Resp 18 S; Pulse Ox 100% on R/A; ca1 15:17 BP 137 / 82; Pulse 108; Resp 18 S; Pulse Ox 98% on R/A; ca1 16:29 BP 130 / 86; Pulse 108; Resp 18 S; Pulse Ox 97% on R/A; ca1 18:20 BP 123 / 89; Pulse 89; Resp 17 S; Pulse Ox 97% on R/A; ca1 19:29 BP 152 / 84; Pulse 105; Resp 17 S; Pulse Ox 98% on R/A; jd3 10:14 Body Mass Index 23.03 (58.97 kg, 160.02 cm) ca1 ED Course: 10:14 Patient arrived in ED. ca1 10:20 Triage completed. ca1 10:21 Arm band placed on right wrist. ca1 10:21 Patient has correct armband on for positive identification. Placed in gown. Bed in low ca1 position. Call light in reach. Side rails up X2. Pulse ox on. NIBP on. Warm blanket given. 10:23 Beth Barnard FNP-C is PHCP. snw 10:24 Ortiz Woods MD is Attending Physician. snw 10:27 Inserted saline lock: 22 gauge in right upper arm, using aseptic technique. Blood ss collected. 10:32 Lisa Saba RN is Primary Nurse. ca1 11:44 CT Chest Abdomen W/ Contrast In Process Unspecified. EDMS 14:26 Abdomen Wo Contrast In Process Unspecified. EDMS 16:38 Inserted saline lock: 20 gauge in left forearm, using aseptic technique. dh4 19:00 Report given to ELEONORA Adkins. ca1 19:30 No provider procedures requiring assistance completed. Patient transferred, IV remains jd3 in place. Administered Medications: 10:54 Drug: Banana Bag - (NS 0.9% 1000 ml, foLIC Acid 1 mg, Thiamine 100 mg, Multivitamin 1 ca1 amp) Route: IV; Rate: 125 calculated rate; Site: right upper arm; 19:33 Follow up: Response: No adverse reaction; IV Status: Infusion continued upon transfer jd3 16:58 Drug: NS 0.9% with KCl 40 mEq/L 1000 ml Route: IV; Rate: 250 ml/hr; Site: left ca1 antecubital; 19:32 Follow up: Response: No adverse reaction; IV Status: Infusion continued upon transfer jd3 16:59 Drug: Potassium Chloride 20 mEq Route: IV; Rate: calculated rate; Site: left ca1 antecubital; 19:32 Follow up: Response: No adverse reaction; IV Status: Infusion continued upon transfer jd3 17:23 Drug: fentaNYL (PF) 25 mcg Route: IVP; Site: left antecubital; ca1 19:00 Follow up: Response: No adverse reaction jd3 17:35 Drug: NS 0.9% 500 ml Route: IV; Rate: bolus; Site: right upper arm; ca1 19:00 Follow up: Response: No adverse reaction; IV Status: Completed infusion; IV Intake: jd3 500ml Intake: 19:00 IV: 500ml; Total: 500ml. jd3 Outcome: 17:25 ER care complete, transfer ordered by MD. granados 19:30 Condition: stable jd3 19:30 Instructed on the need for transfer, Demonstrated understanding of instructions. 19:33 Transferred by ground EMS to [facility], Transfer form completed. jd3 X-rays sent w/ patient. 19:33 Patient left the ED. jd3 Signatures: Dispatcher [employer] EDMS Beth Barnard, FUNDRAISING ASSISTANT-C FUNDRAISING ASSISTANT-Csnw Suha Ha RN RN ss Davies, Jonathon, RN RN Lisa Sánchez RN RN ca1 Huhn, Donald dh4
[2019-12-24] MEDS ORDERED: FENTANYL CITR 100 MCG/2 ML ONE (17:31)
[2019-12-24] MEDS ORDERED: NA CHLORIDE 0.9% 500 ML ONE (17:42)
[2019-12-25 05:35] VITALS: TEMP 97
[2019-12-25 05:45] VITALS: BP 152/84; O2SAT 98
--- NOTE | 2019-12-25 10:16 | EKG ---
Test Date: 2019-12-24 Test Time: 16:08:31 Chief Specialist Leed: ANABEL MEASUREMENT RESULTS: Intervals: Rate: 115 SD: 156 QRSD: 80 QT: 334 QTc: 462 Reva: P: 81 SD: 156 QRS: 82 T: 80 INTERPRETIVE STATEMENTS: Sinus tachycardia with premature atrial complexes with aberrant conduction Otherwise normal ECG Compared to ECG 09/13/2019 14:50:40 Atrial premature complex(es) now present Aberrant conduction of supraventricular beat(s) now present Sinus rhythm no longer present Sinus arrhythmia no longer present Electronically Signed On 12-25-19 10:13:56 CDT by Coy Nava
== END 2019-12-24 19:33 | disposition short-term general hospital (02) ==
LOC: ER 10:12
DX: K25.5 Chronic or unspecified gastric ulcer with perforation (principal); E87.6 Hypokalemia; E86.0 Dehydration; K45.8 Other specified abdominal hernia without obstruction or gangrene; I10 Essential (primary) hypertension; F10.20 Alcohol dependence, uncomplicated; F17.210 Nicotine dependence, cigarettes, uncomplicated
CPT/HCPCS: 93005; 85025; 80048; 36415; 84132; 80076; 83605; 83690; 74160; 74150; 71260; 99285; U0002; Q9967; J3411; J3480 ×2; J3010; J7040; J7030 ×2

== ENCOUNTER 2020-03-28 11:47 | Emergency (ER) | payer OTHER ==
--- OUTSIDE RECORDS SUMMARY | 2020-03-28 11:51 | XMS REPORT | Clinical Summary ---
:1955 Author Organization [facility] Address [address] [place] [address] Care Team Providers Name Role Phone Pcp Primary Care Provider Unavailable Allergies No Known Allergies Medications Medication Sig Dispensed Refills Start Date End Date Status hydrOXYzine (ATARAX) Take 25 mg by 0 Active 25 MG tablet mouth 3 (three) times daily as needed for Itching. metoprolol succinate Take 1 tablet (50 60 tablet 0 01/03/2020 02/02/2020 (TOPROL-XL) 50 MG 24 mg total) by hr tablet mouth 2 (two) times daily for 30 days. senna-docusate Take 1 tablet by 30 tablet 0 01/03/2020 020 (SENOKOT S) 8.6-50 mouth nightly for mg per tablet 30 days. ondansetron (ZOFRAN) Take 1 tablet (4 30 tablet 0 01/03/2020 0 01/10/2020 4 MG tablet mg total) by mouth 3 (three) times daily as needed for Nausea for up to 7 days. HYDROcodone-acetamin Take 1 tablet by 6 tablet 0 01/03/2020 0 01/06/2020 ophen (NORCO 5-325) mouth every 12 5-325 mg per tablet (twelve) hours as needed (severe abdominal pain) for up to 3 days. 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 Encounters Date Type Specialty Care Team Description 12/25/2019 Anesthesia Event Juana Veras MD Hutson, Christopher Lawrence, MD 12/25/2019 Surgery Dougie Montoya,EXPL MD KRISTEN Verma 12/25/2019 Lab Requisition Lab 12/24/2019 - Hospital Encounter General Internal Nalam, Andree Cecilia, Other cirrhosis of liver (HCC); 01/03/2020 Medicine Perforation bowel (HCC); Tangela, Gastric perf oration (HCC); MD Sam Hypokalemia; Erik Gonzalez, Compensated HCV cirrhosis (HCC) MD Lorie Hdz, MD Clark Patten, Janie Valencia MD 12/24/2019 Travel after 03/28/2019 Social History Tobacco Use Types Packs/Day Years Used Date Current Every Day Smoker Cigarettes Smokeless Tobacco: Never Used Alcohol Use Drinks/Week oz/Week Comments Yes quit a year ago Alcohol Habits Answer Date Recorded How often do you have a drink containing alcohol? 2-3 times a week 12/25/2019 How many drinks containing alcohol do you have on a 1 or 2 12/25/2019 typical day when you are drinking? How often do you have six or more drinks on one Not asked occasion? Sex Assigned at Date Recorded Not on file Last Filed Vital Signs Vital Sign Reading Time Taken Comments Blood Pressure 144/66 01/03/2020 11:01 AM CDT Pulse 58 01/03/2020 11:01 AM CDT Temperature 36.6 C (97.9 F) 01/03/2020 11:01 AM CDT Respiratory Rate 18 01/03/2020 11:01 AM CDT Oxygen Saturation 100% 01/03/2020 11:01 AM CDT Inhaled Oxygen Concentration - - Weight 59.2 kg (130 lb 8.2 oz) 01/02/2020 6:00 AM CDT Height 162.6 cm (5' 4") 12/25/2019 4:00 PM pt reported CDT Body Mass Index 22.4 12/25/2019 4:00 PM CDT Plan of Treatment Health Maintenance Due Date Last Done Comments BREAST CANCER SCREENING 1955 COLON CANCER SCREENING COLONOSCOPY 1955 CERVICAL CANCER SCREENING PAP ONLY (Age 21-65) 1977 LIPID PANEL 2001 Medicare IPPE (WELCOME TO MEDICARE) 06/06/2019 INFLUENZA VACCINE (#1) 2020 Procedures Procedure Name Priority Date/Time Associated Comments Diagnosis RHYTHM STRIP - SCAN 01/04/2020 2:00 PM CDT CBC W/PLT COUNT & Routine 01/03/2020 4:44 Result s for this AUTO DIFFERENTIAL AM CDT procedure are in the results section. PHOSPHORUS Routine 01/03/2020 4:44 Results for this AM CDT procedure are i n the results section. CBC W/PLT COUNT & Routine 01/03/2020 4:44 Result s for this AUTO DIFFERENTIAL AM CDT procedure are in the results section. MAGNESIUM Routine 01/03/2020 4:44 Results for this AM CDT procedure are i n the results section. BASIC METABOLIC Routine 01/03/2020 4:44 Results for this PANEL (7) AM CDT procedure are i n the results section. SARS-COV2/RT-PCR Routine 01/03/2020 1:16 Results for this ([facility] & REF LABS) AM CDT procedure are in the results section. CBC W/PLT COUNT & Routine 01/02/2020 3:48 Result s for this AUTO DIFFERENTIAL AM CDT procedure are in the results section. PHOSPHORUS Routine 01/02/2020 3:48 Results for this AM CDT procedure are i n the results section. CBC W/PLT COUNT & Routine 01/02/2020 3:48 Result s for this AUTO DIFFERENTIAL AM CDT procedure are in the results section. MAGNESIUM Routine 01/02/2020 3:48 Results for this AM CDT procedure are i n the results section. BASIC METABOLIC Routine 01/02/2020 3:48 Results for this PANEL (7) AM CDT procedure are i n the results section. CBC W/PLT COUNT & Routine 01/01/2020 4:26 Result s for this AUTO DIFFERENTIAL AM CDT procedure are in the results section. PHOSPHORUS Routine 01/01/2020 4:26 Results for this AM CDT procedure are i n the results section. CBC W/PLT COUNT & Routine 01/01/2020 4:26 Result s for this AUTO DIFFERENTIAL AM CDT procedure are in the results section. MAGNESIUM Routine 01/01/2020 4:26 Results for this AM CDT procedure are i n the results section. BASIC METABOLIC Routine 01/01/2020 4:26 Results for this PANEL (7) AM CDT procedure are i n the results section. CBC W/PLT COUNT & Routine 12/31/2019 5:51 Result s for this AUTO DIFFERENTIAL AM CDT procedure are in the results section. CBC W/PLT COUNT & Routine 12/31/2019 5:51 Result s for this AUTO DIFFERENTIAL AM CDT procedure are in the results section. PHOSPHORUS Routine 12/31/2019 5:21 Results for this AM CDT procedure are i n the results section. MAGNESIUM Routine 12/31/2019 5:21 Results for this AM CDT procedure are i n the results section. BASIC METABOLIC Routine 12/31/2019 5:21 Results for this PANEL (7) AM CDT procedure are i n the results section. H. PYLORI ANTIGEN, Routine 12/30/2019 6:37 Resul ts for this STOOL PM CDT procedure are i n the results section. CBC W/PLT COUNT & Routine 12/30/2019 4:58 Result s for this AUTO DIFFERENTIAL AM CDT procedure are in the results section. VANCOMYCIN LEVEL, Timed 12/30/2019 4:58 Result s for this TROUGH AM CDT procedure are i n the results section. PHOSPHORUS Routine 12/30/2019 4:58 Results for this AM CDT procedure are i n the results section. CBC W/PLT COUNT & Routine 12/30/2019 4:58 Result s for this AUTO DIFFERENTIAL AM CDT procedure are in the results section. MAGNESIUM Routine 12/30/2019 4:58 Results for this AM CDT procedure are i n the results section. BASIC METABOLIC Routine 12/30/2019 4:58 Results for this PANEL (7) AM CDT procedure are i n the results section. TRANSFUSION SERVICE 12/29/2019 6:01 REPORT - SCAN PM CDT CBC W/PLT COUNT & Routine 12/29/2019 4:43 Result s for this AUTO DIFFERENTIAL AM CDT procedure are in the results section. PHOSPHORUS Routine 12/29/2019 4:43 Results for this AM CDT procedure are i n the results section. CBC W/PLT COUNT & Routine 12/29/2019 4:43 Result s for this AUTO DIFFERENTIAL AM CDT procedure are in the results section. MAGNESIUM Routine 12/29/2019 4:43 Results for this AM CDT procedure are i n the results section. BASIC METABOLIC Routine 12/29/2019 4:43 Results for this PANEL (7) AM CDT procedure are i n the results section. PREPARE Routine 12/28/2019 11:54 Results for this LEUKO-REDUCED RBC PM CDT procedure are in the results section. TRANSFUSION SERVICE 12/28/2019 6:01 REPORT - SCAN PM CDT CBC W/PLT COUNT & Routine 12/28/2019 4:31 Result s for this AUTO DIFFERENTIAL AM CDT procedure are in the results section. HEPATIC FUNCTION Routine 12/28/2019 4:31 Results for this PANEL AM CDT procedure are i n the results section. PHOSPHORUS STAT 12/28/2019 4:31 Results for this AM CDT procedure are i n the results section. CBC W/PLT COUNT & Routine 12/28/2019 4:31 Result s for this AUTO DIFFERENTIAL AM CDT procedure are in the results section. MAGNESIUM Routine 12/28/2019 4:31 Results for this AM CDT procedure are i n the results section. BASIC METABOLIC Routine 12/28/2019 4:31 Results for this PANEL (7) AM CDT procedure are i n the results section. TRANSFUSE Routine 12/27/2019 4:19 LEUKO-REDUCED RED PM CDT BLOOD CELLS SARS-COV2/RT-PCR Routine 12/27/2019 6:10 Results for this ([facility] & REF LABS) AM CDT procedure are in the results section. CBC W/PLT COUNT & Routine 12/27/2019 5:08 Result s for this AUTO DIFFERENTIAL AM CDT procedure are in the results section. VANCOMYCIN LEVEL, Timed 12/27/2019 5:08 Result s for this TROUGH AM CDT procedure are i n the results section. HEPATIC FUNCTION Routine 12/27/2019 5:08 Results for this PANEL AM CDT procedure are i n the results section. PHOSPHORUS STAT 12/27/2019 5:08 Results for this AM CDT procedure are i n the results section. CBC W/PLT COUNT & Routine 12/27/2019 5:08 Result s for this AUTO DIFFERENTIAL AM CDT procedure are in the results section. MAGNESIUM Routine 12/27/2019 5:08 Results for this AM CDT procedure are i n the results section. BASIC METABOLIC Routine 12/27/2019 5:08 Results for this PANEL (7) AM CDT procedure are i n the results section. TRANSFUSION SERVICE 12/26/2019 6:01 REPORT - SCAN PM CDT POCT-GLUCOSE METER Routine 12/26/2019 10:55 Resul ts for this AM CDT procedure are i n the results section. CBC W/PLT COUNT & Routine 12/26/2019 5:24 Result s for this AUTO DIFFERENTIAL AM CDT procedure are in the results section. HEPATIC FUNCTION Routine 12/26/2019 5:24 Results for this PANEL AM CDT procedure are i n the results section. PHOSPHORUS STAT 12/26/2019 5:24 Results for this AM CDT procedure are i n the results section. CBC W/PLT COUNT & Routine 12/26/2019 5:24 Result s for this AUTO DIFFERENTIAL AM CDT procedure are in the results section. MAGNESIUM Routine 12/26/2019 5:24 Results for this AM CDT procedure are i n the results section. BASIC METABOLIC Routine 12/26/2019 5:24 Results for this PANEL (7) AM CDT procedure are i n the results section. BASIC METABOLIC Routine 12/25/2019 3:21 Results for this PANEL (7) PM CDT procedure are i n the results section. ECG 12-LEAD STAT 12/25/2019 12:13 Results for this PM CDT procedure are i n the results section. MAGNESIUM STAT Add-on 12/25/2019 11:58 Results for this AM CDT procedure are i n the results section. BASIC METABOLIC STAT Add-on 12/25/2019 11:58 Results for this PANEL (7) AM CDT procedure are i n the results section. PHOSPHORUS STAT 12/25/2019 11:58 Results for this AM CDT procedure are i n the results section. PHOSPHORUS STAT Add-on 12/25/2019 11:57 Results for this AM CDT procedure are i n the results section. MAGNESIUM STAT 12/25/2019 11:57 Results for this AM CDT procedure are i n the results section. CBC (HEMOGRAM ONLY) STAT 12/25/2019 11:57 Resu lts for this AM CDT procedure are i n the results section. BASIC METABOLIC STAT 12/25/2019 11:57 Results for this PANEL (7) AM CDT procedure are i n the results section. HGB/HCT (H&H) - STAT STAT 12/25/2019 9:39 Res ults for this LAB AM CDT procedure are i n the results section. GLUCOSE-STAT LAB STAT 12/25/2019 9:39 Results for this AM CDT procedure are i n the results section. POTASSIUM-STAT LAB STAT 12/25/2019 9:39 Resul ts for this AM CDT procedure are i n the results section. SODIUM NA-STAT LAB STAT 12/25/2019 9:39 Resul ts for this AM CDT procedure are i n the results section. BLOOD GAS, VENOUS STAT 12/25/2019 9:39 Result s for this AM CDT procedure are i n the results section. CALCIUM, IONIZED STAT 12/25/2019 9:39 Results for this AM CDT procedure are i n the results section. RRL CRITICAL LABS STAT 12/25/2019 9:39 Result s for this (ABG,NA,K,H&H,GLUCOS AM CDT procedu re are in E) the results section. TISSUE EXAM AP Routine 12/25/2019 8:20 Results for this AM CDT procedure are i n the results section. FUNGUS CULTURE + Routine 12/25/2019 7:26 Results for this SMEAR AM CDT procedure are i n the results section. ANAEROBIC CULTURE Routine 12/25/2019 7:26 Result s for this AM CDT procedure are i n the results section. SURGICALLY OBTAINED Routine 12/25/2019 7:26 Resu lts for this CULTURE + GRAM STAIN AM CDT procedu re are in the results section. LAPAROTOMY,EXPLORATO 12/25/2019 6:25 Gastric perforat ion RY AM CDT (HCC) Special Needs REQ 0600AM ABORH, MANUAL STAT 12/25/2019 3:46 AM CDT Res ults for this procedure are i n the results section . CBC W/PLT COUNT & AUTO Routine 12/25/2019 3:41 AM CDT Results for this DIFFERENTIAL procedure are i n the results section . TYPE AND SCREEN, AUTOMATED STAT 12/25/2019 3:41 AM CDT Results for this procedure are i n the results section . PHOSPHORUS STAT Add-on 12/25/2019 3:41 AM CDT Resu lts for this procedure are i n the results section . CBC W/PLT COUNT & AUTO Routine 12/25/2019 3:41 AM CDT Results for this DIFFERENTIAL procedure are i n the results section . MAGNESIUM Routine 12/25/2019 3:41 AM CDT Resu lts for this procedure are i n the results section . BASIC METABOLIC PANEL (7) Routine 12/25/2019 3:41 AM CDT Results for this procedure are i n the results section . XR CHEST 1 VIEW STAT 12/25/2019 12:00 AM CDT R esults for this PORTABLE/BEDSIDE procedure a re in the results section . HEPATIC FUNCTION PANEL Add-On 12/24/2019 11:51 PM CDT Results for this procedure are i n the results section . TROPONIN I STAT 12/24/2019 11:51 PM CDT Resu lts for this procedure are i n the results section . PHOSPHORUS STAT 12/24/2019 11:51 PM CDT Resu lts for this procedure are i n the results section . MAGNESIUM STAT 12/24/2019 11:51 PM CDT Resu lts for this procedure are i n the results section . BASIC METABOLIC PANEL (7) STAT 12/24/2019 11:51 PM CDT Results for this procedure are i n the results section . (CELLAVISION MANUAL DIFF) Routine 12/24/2019 11:45 PM CDT Results for this procedure are i n the results section . CBC W/PLT COUNT & AUTO Routine 12/24/2019 11:45 PM CDT Results for this DIFFERENTIAL procedure are i n the results section . PROTHROMBIN TIME/INR Routine 12/24/2019 11:45 PM CDT Results for this procedure are i n the results section . CBC W/PLT COUNT & AUTO Routine 12/24/2019 11:45 PM CDT Results for this DIFFERENTIAL procedure are i n the results section . SARS-COV2/RT-PCR ([facility] & STAT 12/24/2019 11:01 PM CDT Results for this REF LABS) procedure are i n the results section . SARS-COV2/RT-PCR ([facility] & Routine 12/24/2019 4:09 PM CDT Results for this REF LABS) procedure are i n the results section . after 03/28/2019 Results RHYTHM STRIP - SCAN (01/04/2020 2:00 PM CDT) Narrative Performed At This result has an attachment that is no t available. CBC with platelet count + automated diff (01/03/2020 4:44 AM CDT)Only the most recent of11 resultswithin the time period is included. Pathologist Sig nature WBC 6.5 3.5 - 10.5 [facility] K/L [facility] RBC 3.13 (L) 3.93 - 5.22 [facility] M/L [facility] Hemoglobin 7.2 (L) 11.2 - 15.7 [facility] GM/DL [facility] Hematocrit 23.4 (L) 34.1 - 44.9 % [facility] MCV 74.8 (L) 79.4 - 94.8 fL [facility] MCH 23.0 (L) 25.6 - 32.2 pg [facility] MCHC 30.8 (L) 32.2 - 35.5 [facility] GM/DL [facility] RDW 23.9 (H) 11.7 - 14.4 % [facility] Platelets 260 150 - 450 K/CU [facility] MM [facility] MPV 10.4 9.4 - 12.3 fL [facility] nRBC 0 0 - 0 /100 WBC [facility] % Neutros 52 % [facility] % Lymphs 34 % [facility] % Monos 11 % [facility] % Eos 2 % [facility] % Baso 0 % [facility] # Neutros 3.39 1.56 - 6.13 [facility] # Lymphs 2.17 1.18 - 3.74 [facility] # Monos 0.72 (H) 0.24 - 0.36 [facility] # Eos 0.12 0.04 - 0.36 [facility] # Baso 0.02 0.01 - 0.08 [facility] Immature 1 0 - 1 % [facility] Granulocytes-Relative [facility] Specimen Blood Performing Organization Address City/State/Zipcode Phone Number [facility] [address] [place] [address] CENTER Phosphorus (01/03/2020 4:44 AM CDT)Only the most recent of13 resultswithin the time period is included. Pathologist Sig nature Phosphorus 3.4 2.3 - 4.7 mg/dL [facility] Specimen Blood Narrative Performed At [employer] Machine Upkeep Mechanic ID - [facility]IA [facility] Performing Organization Address City/[facility]/Zipcode Phone Number [facility] [address] [place] [address] CENTER Magnesium (01/03/2020 4:44 AM CDT)Only the most recent of13 resultswithin the time period is included. Pathologist Sig nature Magnesium 1.7 1.6 - 2.6 mg/dL [facility] Specimen Blood Narrative Performed At [employer] Upkeep Mechanic ID - MARIA GU[facility] Performing Organization Address City/[facility] Cent[facility]ode Phone Number [address] [address] CENTER Basic metabolic panel (01/03/2020 4:44 AM CDT)Only the most recent of14 results within the time period is included. Sodium 139 136 - 145 meq/L [facility] Potassium 4.0 3.5 - 5.1 meq/L [facility] Chloride 110 (H) 98 - 107 meq/L [facility] CO2 29 22 - 29 meq/L [facility] BUN 6 (L) 7 - 21 mg/dL [facility] Creatinine 0.52 (L) 0.57 - 1.25 [facility] mg/dL [facility] Glucose 78 70 - 105 mg/dL [facility] Calcium 7.7 (L) 8.4 - 10.2 [facility] mg/dL [facility] EGFR 119Comment: mL/min/1.73 sq [facility] ESTIMATED GFR IS NOT [facility] ACCURATE [place] CREATININE CLEARANCE IN PREDICTING GLOMERULAR FILTRATION RATE. ESTIMATED GFR IS NOT APPLICABLE FOR DIALYSIS PATIENTS. Specimen Blood Narrative Performed At [employer] Upkeep Mechanic ID - MARIA GUADALUPE [facility] Performing Organization Address City/[facility]/Zipcode Phone Number [facility] [address] CENTER SARS-CoV2/RT-PCR (Asymptomatic ONLY) (01/03/2020 1:16 AM CDT)Only the most recent of4 resultswithin the time period is included. SARS-COV2/RT-PCR Negative Not Detected, [facility] Negative, See [facility] external report CENTER for linked test SARS-COV-2 [facility] BO [facility] PERFORMING LAB [facility] Specimen Other - Nasopharyngeal wall structure (b haseeb structure) Narrative Performed At Negative result for this test determines that [facility] SARS-CoV-2 RNA was not present in the specimen above the Limit of Detection (LOD). However, Negative results do not preclude SARS-CoV-2 infection and should not be used as the sole basis for treatment or patient management decisions. Negative results must be combined with clinical observations, patient history, and epidemiological information. A false negative result may occur if a specimen is improperly collected, transported or handled. A false negative result should be considered if patient's recent exposures or clinical presentation indicate that COVID-19 (SARS-CoV-2) is likely and diagnostic tests for other causes of illness are negative. Re-testing should be considered in cases of suspected false negatives. The limit of detection for this assay is 800 copies/mL. This SARS CoV-2 test is a real-time RT-PCR test intended for the qualitative detection of nucleic acid from SARS-CoV-2 in a nasopharyngeal swab specimen collected from individuals suspected of COVID-19 by their healthcare provider. This test has not been Food and Drug Administration (FDA) cleared or approved. This is a modified version of an approved Emergency Use Authorization (EUA) and is in the process of review by the FDA. Once authorized by the FDA, the issued EUA will be effective until the declaration that circumstances exist justifying the authorization of the emergency use of in vitro diagnostic tests for detection and/or diagnosis of COVID-19 is terminated under Section 564(b)(2) of the Act or the EUA is revoked under Section 564(g) of the Act. Fact Sheet for Healthcare Providers: https://www.[employer].com/sites/default/files/pro duct/documents/Fact_Sheet_HC_Providers_Lyra_SA RS-CoV-2.pdf Fact Sheet for Healthcare Patients: https://www.[employer]/sites/default/files/pro duct/documents/Fact_Sheet_Patients_Lyra_SARS-C oV-2.pdf Performing Laboratory: [address] [place] [address] Performing Organization Address City/State/Zipcode Phone Number [address] [address] [place] H. pylori antigen, stool (12/30/2019 6:37 PM CDT) H. pylori Not detected Not detected [facility] Antigen Comment: [facility] Antimicrobials, proton pump inhibitors, and bismuth p reparations inhibit H. pylori and ingestion up to two weeks prior to testing may cause false negative results. If clinically indica diane the test should be repeated on a new specimen obtained two weeks after discontinuing treatment. Specimen Stool - Rectum structure (body structure ) Narrative Performed At Performing Lab [facility] *[facility], [address] [place] [phone] Lisandro Brower MD, PhD Performing Organization Address City/State/Zipcode Phone Number [place] [address] [address] [place] [address] Vancomycin level, trough (12/30/2019 4:58 AM CDT)Only the most recent of2 resultswithin the time period is included. Pathologist Sig nature Vancomycin Tr 10.9 10.0 - 20.0 ug/mL [facility] Specimen Blood Narrative Performed At [employer]keep Mechanic ID - DB [facility] Performing Organization Address City/State/Zipcode Phone Number [address] [address] [place] TRANSFUSION SERVICE REPORT - SCAN (12/29/2019 6:01 PM CDT)Only the most recent of3 resultswithin the time period is included. Narrative Performed At This result has an attachment that is no t available. Prepare Leuko-Red RBC (12/28/2019 11:54 PM CDT) Pathologist Sig nature [employer]ATCH COMPATIBLE [facility]AFET[employer] TX Unit ABO O Pos SAFET[facility]ACE TX UNIT NUMBER [id number] [place] Status TX_TIMEINCHART [facility] [place] Blood Bank Product RED BLOOD CELLS [employer] PRODUCT CODE [id number] [facility] [place] Specimen Other Performing Organization Address [facility] Cent[facility]out Phone Number [employer] [place] Hepatic function panel (12/28/2019 4:31 AM CDT)Only the most recent of4 results within the time period is included. Pathologist Sig nature Protein, Total 5.6 (L) 6.0 - 8.3 gm/dL [facility] Albumin 2.6 (L) 3.5 - 5.0 g/dL [facility] Total Bilirubin 0.6 0.2 - 1.2 mg/dL [facility] Bilirubin, Direct 0.5 0.1 - 0.5 mg/dL [facility] Alkaline Phosphatase 51 40 - 150 U/L [facility] AST 48 (H) 5 - 34 U/L [facility] ALT 19 6 - 55 U/L [facility] Specimen Blood Narrative Performed At [employer] Machine Upkeep Mechanic ID - MARIA GUADALUPE [facility] Performing Organization Address [facility] [place] Phone Number [address] [phone] CENTER Transfuse Leuko-Red RBC (12/27/2019 4:19 PM CDT)POC-Glucose meter (12/26/2019 10:55 AM CDT) POC-Glucose Meter 72Comment: : 70 - 110 mg/dL [facility] TESTED AT [address], [address]: Forming Machine Upkeep Mechanic/Technic ita ID = [id number] for MAN GRAYSON Specimen Blood Performing Organization Address [facility]out Phone Number [address] [address] [id number] [phone] CENTER ECG 12 lead (12/25/2019 12:13 PM CDT) Specimen Narrative Performed At Ventricular Rate 70 BPM GE MUSE Atrial Rate 70 BPM P-R Interval 146 ms QRS Duration 86 ms Q-T Interval 438 ms QTC Calculation(Bazett) 473 ms P [place] 58 degrees R [place] 66 degrees T [place] 79 degrees Normal sinus rhythm Within normal limits No previous ECGs available Confirmed by MD Loza Roberto ([id number]) on 12/24 1:25:20 PM Procedure Note Interface, External Ris In - 12/25/2019 1:25 PM CDT Ventricular Rate 70 BPM Atrial Rate 70 BPM P-R Interval 146 ms QRS Duration 86 ms Q-T Interval 438 ms QTC Calculation(Bazett) 473 ms P [place] 58 degrees R [place] 66 degrees T [place] 79 degrees Normal sinus rhythm Within normal limits No previous ECGs available Confirmed by MD Loza Roberto ([id number]) on 12/25/2019 1:25:20 PM Performing Organization Address City/State/Zipcode Phone Number GE MUSE CBC (Hemogram only) (12/25/2019 11:57 AM CDT) WBC 16.8 (H) 3.5 - 10.5 [facility] K/L [facility] RBC 3.96 3.93 - 5.22 [facility] M/L [facility] Hemoglobin 8.6 (L) 11.2 - 15.7 [facility] GM/DL [facility] Hematocrit 28.7 (L) 34.1 - 44.9 % [facility] MCV 72.5 (L) 79.4 - 94.8 fL [facility] MCH 21.7 (L) 25.6 - 32.2 pg [facility] MCHC 30.0 (L) 32.2 - 35.5 [facility] GM/DL [facility] RDW 19.8 (H) 11.7 - 14.4 % [facility] Platelets 233 150 - 450 K/CU [facility] MPV Comment: Unable to [facility] report due to [facility] abnormal Platelet CENTER population distribution. nRBC 0 0 - 0 /100 WBC [facility] Specimen Blood - Entire left upper arm (body stru cture) Performing Organization Address City/[facility] Phone Number [address] [address] [place] Potassium-Stat Lab (12/25/2019 9:39 AM CDT) Pathologist Sig nature Potassium 3.2 (L) 3.6 - 5.5 meq/L [facility] Specimen Blood, Arterial Performing Organization Address [facility] Phone Number [address] [address] [place] Sodium Na-Stat Lab (12/25/2019 9:39 AM CDT) Pathologist Sig nature Sodium 129 (L) 136 - 145 meq/L [facility] Specimen Blood, Arterial Performing Organization Address [facility] Phone Number [address] [address] [place] Glucose-Stat Lab (12/25/2019 9:39 AM CDT) Pathologist Sig nature Glucose 116 (H) 70 - 110 mg/dL [facility] Specimen Blood, Arterial Performing Organization Address City/[facility] Phone Number [address] [address] [place] HGB/HCT (H&H)-Stat Lab (12/25/2019 9:39 AM CDT) Pathologist Sig nature Hemoglobin 8.9 (L) 12.0 - 15.0 g/dL [facility] Hematocrit 26.0 (L) 36.0 - 45.0 % [facility] Specimen Blood, Arterial Performing Organization Address [facility] Phone Number [address] [address] [place] Calcium, Ionized (12/25/2019 9:39 AM CDT) Pathologist Sig nature Calcium, Ion 1.06 (L) 1.12 - 1.27 mmol/L [facility] pH, Blood 7.28 [facility] Specimen Blood Performing Organization Address [facility] Phone Number [address] [address] [place] Blood gas, venous (12/25/2019 9:39 AM CDT) Pathologist Sig nature pH, Josias 7.29 (L) 7.32 - 7.42 [facility] pCO2, Josias 48 41 - 51 mmHg [facility] pO2, Josias 69 (H) 25 - 40 mmHg [facility] O2 Sat, Josias 92.5 (H) 40.0 - 70.0 % [facility] HCO3, Josias 23 21 - 29 mmol/L [facility] Base Excess, Josias -4.0 (L) -2.0 - 3.0 [facility] mmol/L [facility] Patient Temperature 36.2 C [facility] FIO2 55.0 % [facility] Specimen Blood - Entire left upper arm (body stru cture) Performing Organization Address [facility] Phone Number [address] [address] [place] Tissue Exam (12/25/2019 8:20 AM CDT) Case Report Surgical Pathology Report Case: [id number] [facility] Authorizing Provider: Dougie Montoya MD Collected: 12/25/2019 08:20 AM [facility] Ordering Location: [facility] PERIOPERATIVE Received: 12/25/2019 11:14 AM [facility] Pathologist: Lois Metz MD Specimens: A) - Stomach, Double stitch = posterior perforation. Short stitch=Distal Margin B) - Omen sarina DIAGNOSIS [facility] Electronically A. STOMACH, DISTAL GASTRECTOMY: [facility] signed by Lashay, - GASTRIC PERFORATION WITH ACUTE AND CHRONI C INFLAMMATION AND SEROSITIS. [facility] MD Lois on - PROXIMAL RESECTION MARGIN VIABLE WITH SEROSITIS 12/27/2019 at 2:02 - DISTAL RESECTION MARGIN VIABLE, NEGATIVE FOR IN FLAMMATION. PM - NEGATIVE FOR MALIGNANCY B. OMENTUM, RESECTION: - ADIPOSE TISSUE WITH ACUTE AND CHRONIC INFLAMMAT ION. Signing Pathologist Direct Phone Line: CPT Code(s) 51851, 45219 [facility] CLINICAL HISTORY Gastric perforation [facility] SPECIMEN SOURCE A. Stomach; B. [facility] Omentum [facility] GROSS DESCRIPTION A. Received in formalin labe led with the patient's name, accession number and "stomach" is a 14.0 x 7.5 x 3.5 cm portion of stomach with a short suture at one end, which is designated as "distal" by the [facility] surgeon, and a double stitc h designated as posterior perforation. The stomach contains up to 5.0 cm of attached perigastric fat. The serosa is wallace-pink, predominantly smooth and displays a 2.5 x 2.3 cm [facility] transmural defect at the po sterior wall that is 2.5 cm from the closest proximal margin, and 2.5 cm from the distal margin. The specimen is opened to reveal a wallace-pink, edematous mucosa that displays [facility] redominantly flattened folds . No discrete lesions are identified. The wall measures up to 0.7 cm thick. Ink code: Proximal - blue; Distal - black Transmural defect - green Audiovisual Aids Technician sections are submitted as follows: Section code: A1, proximal and distal margins en face; A2-A7, transmural defect A8, posterior wall A9, anterior wall A10, one lymph node, bisected A11, one lymph node B. Received in formalin labe led with the patient's name, accession number and "omentum" is a 39.0 x 13.7 x 1.5 cm portion of wallace-yellow fibrofatty omentum with attached fibromembranous tissue. Sectionin g reveals a tn-yellow fibrof atty cut surface, No discrete lesions are identified. [employer] A[employer] Technician sections are submitted in B1-B4. PA/pl MICROSCOPIC Performed [facility] Gross assessment [facility] was performed at [facility] Department of [facility] Pathology, [address] [place] [id number], Technical component [facility] was performed at [facility] Department of [facility] Pathology, [address] [place] [address], Professional [facility] component was [facility] performed at Department [facility] CENTER Pathology, [address] [place] [id number], Specimen Tissue - Stomach structure (body structu re) Tissue specimen (specimen) - Omentum str ucture (body structure) Performing Organization Address [facility] Phone Number [address] [address] CENTER Anaerobic culture (12/25/2019 7:26 AM CDT) Pathologist Sig nature Result No anaerobes isolated [facility] Specimen Body Fluid - Abdominopelvic structure (b haseeb structure) Performing Organization Address [facility]/Zipcode Phone Number [address] [address] CENTER Surgically obtained culture + gram stain (12/25/2019 7:26 AM CDT) Result No growth [facility] Gram Stain Result 2+ WBCs [facility] Gram Stain Result No organisms seen [facility] Specimen Body Fluid - Abdominopelvic structure (b haseeb structure) Performing Organization Address [facility]/Zipcode Phone Number [address] [address] CENTER Fungus culture + smear (12/25/2019 7:26 AM CDT) Pathologist Sig nature Result No fungus isolated [facility] in 28 days [facility] Fungus Smear No fungi seen [facility] Specimen Body Fluid - Abdominopelvic structure (b haseeb structure) Performing Organization Address City/[facility]/Zipcode Phone Number [address] [id number] CENTER ABORH, manual (12/25/2019 3:46 AM CDT) Pathologist Sig nature ABO Grouping O [facility] DICAL CENTER Rh Factor POS [facility] Specimen Blood Performing Organization Address [facility]/Zipcode Phone Number [address] [address] Type and screen, automated (12/25/2019 3:41 AM CDT) Pathologist Sig nature ABO/RH AUTOMATED O POSITIVE [facility] (BEAKER) [facility] Ab Scrn NEGATIVE [facility] Specimen Blood Performing Organization Address [facility] Phone Number [address] [phone] XR chest 1 view portable / bedside (12/25/2019 12:00 AM CDT) Specimen Narrative Performed At FINAL REPORT GE RIS INDICATION: Chest pain COMPARISON: None TECHNIQUE: Single frontal view of the est. IMPRESSION: Lungs and pleura: Clear lungs. No effusi on. Heart and mediastinum: Normal heart size . Unremarkable mediastinal contours. Osseous structures: No acute abnormality . Other: Mildly displaced fracture of the posterior right eighth rib of indeterminate chronicity. Signed: Ralf Mauricio MD Report Verified Date/Time: 12/25/2019 00:40:46 Procedure Note Interface, External Ris In - 12/25/2019 12:42 AM CDT FINAL REPORT INDICATION: Chest pain COMPARISON: None TECHNIQUE: Single frontal view of the est. IMPRESSION: Lungs and pleura: Clear lungs. No effusi on. Heart and mediastinum: Normal heart size . Unremarkable mediastinal contours. Osseous structures: No acute abnormality . Other: Mildly displaced fracture of the posterior right eighth rib of indeterminate chronicity. Signed: Ralf Mauricio MD Report Verified Date/Time: 12/25/2019 0 0:40:46 Performing Organization Address City/State/Zipcode Phone Number GE RIS Troponin I (12/24/2019 11:51 PM CDT) Pathologist Sig nature Troponin I 0.02 0.00 - 0.03 ng/mL [facility] Specimen Blood Narrative Performed At Troponin I (TnI) levels must be interpreted [facility] in the context of the presenting symptoms and the clinical findings. Elevated TnI levels indicate myocardial damage, but are not specific for ischemic heart disease. Elevated TnI levels are seen in patients with other cardiac conditions (including myocarditis and congestive heart failure), and slight TnI elevations occur in patients with other conditions, including sepsis, renal failure, acidosis, acute neurological disease, and persistent tachyarrhythmia. Forming Machine Upkeep Mechanic ID - [id number] Performing Organization Address [facility]/Zipcode Phone Number [address] [address] CENTER Manual Differential (12/24/2019 11:45 PM CDT) % Neutros 79 % [facility] % Lymphs 12 % [facility] % Monos 2 % [facility] % Eos 1 % [facility] % Bands 6 0 - 10 % [facility] # Neutros 17.70 (H) 1.56 - 6.13 [facility] # Lymphs 2.69 1.18 - 3.74 [facility] # Monos 0.45 (H) 0.24 - 0.36 [facility] # Eos 0.22 0.04 - 0.36 [facility] # Bands 1.34 (H) 0.00 - 0.80 [facility] Total Counted 100 [facility] WBC Morphology Normal [facility] Platelet Morphology Normal [facility] Polychromasia 1+ few [facility] Hypochromia 1+ few [facility] Anisocytosis 1+ few [facility] Microcytes 1+ few [facility] Poikilocytes 2+ moderate [facility] Target Cells 2+ moderate [facility] Ovalocytes 1+ few [facility] Tear Drop Cells 1+ few [facility] Myah Cells 1+ few [facility] Specimen Blood Narrative Performed At Forming Machine Upkeep Mechanic ID - [id number] [facility] Manually diff Performing Organization Address City/State/Zipcode Phone Number [facility] [address] [place] [address] CENTER Prothrombin time/INR (12/24/2019 11:45 PM CDT) Pathologist Sig nature Protime 16.5 (H) 11.9 - 14.2 seconds [facility] INR 1.4 <=5.9 [facility] Specimen Blood Narrative Performed At Effective 11/01/2018: PT Reference Range [facility] Change New: 11.9-14.2 Previous: 11.7-14.7 RECOMMENDED COUMADIN/WARFARIN INR THERAPY RANGES STANDARD DOSE: 2.0-3.0 Includes: PROPHYLAXIS for venous thrombosis, systemic embolization; TREATMENT for venous thrombosis and/or pulmonary embolus. HIGH RISK: Target INR is 2.5-3.5 for patients wiht mechanical heart valves. Performing Organization Address City/State/Zipcode Phone Number [facility] [address] [place] [address] CENTER after 03/28/2019 Insurance Payer Benefit Plan Subscriber ID Effective Phone Address Typ e / Group Dates [facility] [id number] 2019-Pres Maps [facility] [place] P[facility]S ent Cont racted MEDICARE MGD CARE [facility] [id number] 2019-Pres HEALTHCARE - MEDICARE HMO ent MEDICARE MGD CARE CDC REVIEW CDC REVIEW [id number] 2019-[place] [address] A (Home) [address] [place] [address] Advance Directives For more information, please contact: [phone] Code Status Date Activated Date Inactivated Comments Full Code 12/24/2019 9:51 PM 01/03/2020 2:16 PM This code status was determined by: Patient
--- OUTSIDE RECORDS SUMMARY | 2020-03-28 11:53 | XMS REPORT | Continuity of Care Document ---
:1955 Author Organization [facility] t Address [facility]ly [facility], [facility]3 Mahin Salcido [address] [place] [id number] Care Team Providers Name Role Phone Pcp Primary Care Physician Unavailable CECILIA IRENE Attending Clinician Unavailable Cecilia Irene MD Attending Clinician Tangela BURGOS Attending Clinician Juliano Castillo MD Attending Clinician [phone] Betzy Melo MD Attending Clinician [phone] Erik Rodas MD Attending Clinician Jenelle Veras MD Attending Clinician Jaswinder Rosas MD Attending Clinician Dev Montoya MD Attending Clinician TANGELA Admitting Clinician Unavailable Payers Payer Name Policy Type Policy Effective Date Expiration Date Sour ce Number [facility] [id number] [facility] - MEDICARE MGD 00:00:00 - [facility] Center [facility] [id number] Contracted CDC REVIEWCD [id number] [address] [facility] [id number] 00:00:00 [place] [address] Problems Condition Condition Condition Status Onset Resolution Last Treating Co mments Source Name Details Category Date Date Treatment Clinician Date Other Other Disease Active [facility] cirrhosis cirrhosis 12-24 [facility] - of liver of liver 00:00: Medica l Center Hyponatrem Hyponatrem Disease Active 2020-[address] ia ia 12-24 [facility] - 00:00: Medical 00 [place] Hypomagnes Hypomagnes Disease Active 2020-[address] emia emia 12-24 [facility] - 00:00: Medical 00 [place] Hypokalemi Hypokalemi Disease Active 2020-[address] a a 12-24 [facility] - 00:00: Medical 00 [place] Perforatio Perforatio Disease Active 2020-[address] n bowel n bowel 12-23 [facility] - 00:00: Medical 00 Center Allergies, Adverse Reactions, Alerts This patient has no known allergies or adverse reactions. Social History Social Habit Start Date Stop Date Quantity Comments Source History of tobacco Cigarette Smoker [facility] - use [facility] History [facility] Alcohol Binge Medical [address] [facility] Sex Assigned At [facility] Tobacco use and 2019-12-27 2019-12-27 Never used [facility] - exposure 00:00:00 00:00:00 [facility] Alcohol intake 2019-12-27 2019-12-27 Current drinker [facility] Joanne garcia da - 00:00:00 00:00:00 of alcohol [facility] Center (finding) History [facility] 2019-12-25 2019-12-25 [address] [facility] - Alcohol Frequency 00:00:00 00:00:00 [facility] History [facility] 2019-12-25 2019-12-25 1 [facility] da - Alcohol Std Drinks 00:00:00 00:00:00 Medica l [place] Alcohol Comment 2019-12-25 2019-12-25 quit a year ago [facility] - 00:00:00 00:00:00 [facility] Smoking Status Start Date Stop Date Source Current every day smoker 2019-12-27 00:00:00 [facility] Medications Ordered Filled Start Stop Current Ordering Indication Dosage Frequency Signature Comments Components Source Medication Medication Date Date Medication? Clinician (SIG) Name Name hydrOXYzine Yes 25mg Take [address] (ATARAX) 25 7-30 by mouth 3 Dipika kes - MG tablet 12:16: (three) Medic al 39 times Center daily as needed for Itching. metoprolol 2020- No 50mg Q.5D Take [address] succinate 7-30 08-29 tablet (50 [facility] - (TOPROL-XL) 00:00: 23:59 mg total) Medical 50 MG 24 hr 00 :00 by mouth 2 Ce nter tablet (two) times daily for 30 days. senna-docus 2019- No 1{tbl} QD Take [address] ate 01-02 tablet by Lexis - (SENOKOT S) 00:00: 23:59 mouth Medi tessy 8.6-50 mg 00 :00 nightly Center per tablet for 30 days. ondansetron 4mg Take [address] (ZOFRAN) 4 01-02 tablet (4 [facility] - MG tablet 00:00: 23:59 mg total) Me dical 00 :00 by mouth 3 Center (three) times daily as needed for Nausea for up to 7 days. HYDROcodone No 1{tbl} Take [address] -acetaminop 01-02 tablet by Dipika smith (NORCO 00:00: 23:59 mouth Medic al 5-325) 00 :00 every 12 Center 5-325 mg (twelve) per tablet hours as needed (severe abdominal pain) for up to 3 days. Max Daily Amount: 2 tablets Vital Signs Vital Name Observation Time Observation Value Comments Source Systolic blood 2020-01-03 11:01:00 144 mm[Hg] [facility] Diastolic blood 2020-01-03 11:01:00 66 mm[Hg] [facility] S t [facility] Heart rate 2020-01-03 11:01:00 58 /min [facility] Body temperature 2020-01-03 11:01:00 36.61 Ivonne [facility] Respiratory rate 2020-01-03 11:01:00 18 /min [facility] Oxygen saturation in 2020-01-03 11:01:00 100 /min [facility] Arterial blood by Medical Ce nter Pulse oximetry Body weight 2020-01-02 06:00:00 59.2 kg [facility] BMI 2020-01-02 06:00:00 22.40 kg/m2 [facility] Body height 2019-12-25 16:00:00 162.6 cm pt reported [facility] Procedures Procedure Date / Time Performed Performing Clinician [facility] e RHYTHM STRIP - SCAN 2020-01-04 14:00:06 ProviderLuh [facility] BASIC METABOLIC PANEL 2020-01-03 04:44:[address] [facility] - (7) [facility] MAGNESIUM 2020-01-03 04:44:00 Allenwerner [facility] PHOSPHORUS 2020-01-03 04:44:00 Gadichermd, [facility] CBC W/PLT COUNT & AUTO 2020-01-03 04:44:00 Allencheralex [facility] - DIFFERENTIAL [facility] SARS-COV2/RT-PCR ([facility] & 2020-01-03 01:16:[address] [facility] [facility] MET[facility]OLIC PANEL 2020-01-02 03:48:[address] [facility] - (7) [facility] MAGNESIUM 2020-01-02 03:48:00 Allencherriberlin [facility] PHOSPHORUS 2020-01-02 03:48:00 Gadichermd, [facility] CBC W/PLT COUNT & AUTO 2020-01-02 03:48:00 [facility] BASIC METABOLIC PANEL 2020-01-01 04:26:[address] [facility] - (7) [facility] MAGNESIUM 2020-01-01 04:26:00 Allencherriberlin [facility] PHOSPHORUS 2020-01-01 04:26:00 Gadichermd, [facility] CBC W/PLT COUNT & AUTO 2020-01-01 04:26:[address] All[address]herriberlin [facility] DIFFERENTIAL [facility] CBC W/PLT COUNT & AUTO 2019-12-31 05:51:00 Allenwerner [facility] DIFFERENTIAL [facility] BASIC METABOLIC PANEL 2019-12-31 05:21:[address] [facility] - (7) [facility] MAGNESIUM 2019-12-31 05:21:00 Mk Vizcaino [facility] PHOSPHORUS 2019-12-31 05:21:00 [facility] H[facility] PYLORI ANTIGEN, STOOL 2019-12-30 18:37:00 Dougie Montoya [facility] BASIC METABOLIC PANEL 2019-12-30 04:58:00 Mk Vizcaino [facility] - (7) [facility] MAGNESIUM 2019-12-30 04:58:00 AllencherriMk slade [facility] PHOSPHORUS 2019-12-30 04:58:00 Gadicherla, [facility] VANCOMYCIN LEVEL, TROUGH 2019-12-30 04:58:00 Melvin Castillo [facility] CBC W/PLT COUNT & AUTO 2019-12-30 04:58:00 Charis [facility] TRANSFUSION SERVICE 2019-12-29 18:01:26 Provider, Luh [facility] BASIC METABOLIC PANEL 2019-12-29 04:43:00 Mk Vizcaino [facility] - (7) [facility] MAGNESIUM 2019-12-29 04:43:00 Charis [facility] PHOSPHORUS 2019-12-29 04:43:00 Gadicherla, [facility] CBC W/PLT COUNT & AUTO 2019-12-29 04:43:00 Charis [facility] PREPARE LEUKO-REDUCED 2019-12-28 23:54:00 Amalia Alston [facility] TRANSFUSION SERVICE 2019-12-28 18:01:25 Provider, Default [facility] BASIC METABOLIC PANEL 2019-12-28 04:31:[address] [facility] - (7) [facility] MAGNESIUM 2019-12-28 04:31:00 Charis [facility] PHOSPHORUS 2019-12-28 04:31:00 Sherrie Campos [facility] HEPATIC FUNCTION PANEL 2019-12-28 04:31:00 Sayda Castillo [facility] CBC W/PLT COUNT & AUTO 2019-12-28 04:31:00 Mk Vizcaino [facility] DIFFERENTIAL [facility] TRANSFUSE LEUKO-REDUCED 2019-12-27 16:19:11 Amalia Alston [facility] - RED BLOOD CELLS [facility] SARS-COV2/RT-PCR ([facility] & 2019-12-27 06:10:00 Josh Gross [facility] - REF LABS) [facility] BASIC METABOLIC PANEL 2019-12-27 05:08:00 Mk Vizcaino [facility] - (7) [facility] MAGNESIUM 2019-12-27 05:08:00 Mk Vizcaino [facility] PHOSPHORUS 2019-12-27 05:08:00 Sherrie Campos [facility] HEPATIC FUNCTION PANEL 2019-12-27 05:08:00 Sayda Castillo [facility] VANCOMYCIN LEVEL, TROUGH 2019-12-27 05:08:00 Latoya Raya [facility] CBC W/PLT COUNT & AUTO 2019-12-27 05:08:00 Mk Vizcaino [facility] TRANSFUSION SERVICE 2019-12-26 18:01:15 Luh Narayan [facility] REPORT - SCAN [facility] POCT-GLUCOSE METER 2019-12-26 10:55:00 Cami Melo [facility] BASIC METABOLIC PANEL 2019-12-26 05:24:00 Mk Vizcaino [facility] - (7) [facility] MAGNESIUM 2019-12-26 05:24:00 Mk Vizcaino [facility] PHOSPHORUS 2019-12-26 05:24:00 Sherrie Campos [facility] HEPATIC FUNCTION PANEL 2019-12-26 05:24:00 [facility] W/PLT COUNT & AUTO 2019-12-26 05:24:00 CharisMk [facility] BASIC METABOLIC PANEL 2019-12-25 15:21:00 Haylee Lisa, Sayda [address] ECG 12-LEAD 2019-12-25 12:13:36 Juana Veras [facility] PHOSPHORUS 2019-12-25 11:58:[address] [facility] BASIC METABOLIC PANEL 2019-12-25 11:58:00 [facility] Lisa, [address] MAGNESIUM 2019-12-25 11:58:00 [facility], [facility] BASIC METABOLIC PANEL 2019-12-25 11:57:00 [facility] [address] CBC (HEMOGRAM ONLY) 2019-12-25 11:57:00 Andres [facility] MAGNESIUM 2019-12-25 11:57:00 Andres, [facility] Dixon [facility] PHOSPHORUS 2019-12-25 11:57:00 [facility] Lisa, [facility] CALCIUM, IONIZED 2019-12-25 09:39:07 Juana Veras [facility] BLOOD GAS, VENOUS 2019-12-25 09:39:07 Juana Veras [facility] SODIUM NA-STAT LAB 2019-12-25 09:39:07 Juana Veras [facility] POTASSIUM-STAT LAB 2019-12-25 09:39:07 Juana Veras [facility] GLUCOSE-STAT LAB 2019-12-25 09:39:07 Juana Veras [facility] HGB/HCT (H&H) - STAT LAB 2019-12-25 09:39:07 Juana Veras [facility] TISSUE EXAM 2019-12-25 08:20:00 Dougie Montoya [facility] SURGICALLY OBTAINED 2019-12-25 07:26:23 Jan Dougie Méndez [facility] - CULTURE + GRAM STAIN Medical [address] [facility] ANAEROBIC CULTURE 2019-12-25 07:26:23 Jan Dougie Méndez [facility] FUNGUS CULTURE + SMEAR 2019-12-25 07:26:23 Jan Dougie Gunterw [facility] LAPAROTOMY,EXPLORATORY 2019-12-25 06:25:00 Dougie Montoya [facility] ABORH, MANUAL 2019-12-25 03:46:00 Tisha Brandjesika Warnere [facility] BASIC METABOLIC PANEL 2019-12-25 03:41:00 Mk Vizcaino [place] [address]) [facility] MAGNESIUM 2019-12-25 03:41:00 Charis [facility] PHOSPHORUS 2019-12-25 03:41:00 Andres, [facility] TYPE AND SCREEN, 2019-12-25 03:41:00 Andres, Paomike Dixon [facility] CBC W/PLT COUNT & AUTO 2019-12-25 03:41:00 Charis [facility] XR CHEST 1 VIEW 2019-12-25 00:00:00 Andres, [facility] PORTABLE/BEDSIDE Medical Center BASIC METABOLIC PANEL 2019-12-24 23:51:00 Andres, [place] [address]) [facility] MAGNESIUM 2019-12-24 23:51:00 Andres, [facility] PHOSPHORUS 2019-12-24 23:51:00 Andres, [facility] TROPONIN I 2019-12-24 23:51:00 Andres, [facility] HEPATIC FUNCTION PANEL 2019-12-24 23:51:00 Andres, [facility] PROTHROMBIN TIME/INR 2019-12-24 23:45:00 Mk Vizcaino [facility] CBC W/PLT COUNT & AUTO 2019-12-24 23:45:[address] [facility] - DIFFERENTIAL [facility] (CELLAVISION MANUAL 2019-12-24 23:45:[address] [facility] - DIFF) [facility] SARS-COV2/RT-PCR ([facility] & 2019-12-24 23:01:00 Harshad Camposmike Dixon [facility] - REF LABS) [facility] SARS-COV2/RT-PCR ([facility] & 2019-12-24 16:09:[address] [facility] - REF LABS) [facility] Plan of Care Planned Activity Planned Date Details Comments Source Future Scheduled 2020-02-[address] [facility] - Test 00:00:00 (#1) [code = [facility] INFLUENZA VACCINE (#1)] Future Scheduled 2019-06-[address] [facility] - Test 00:00:00 (WELCOME TO [facility] MEDICARE) [code = Medicare IPPE (WELCOME TO MEDICARE)] Future Scheduled [address] [facility] - Test 00:00:00 (procedure) [code = [facility] 95807086] Future Scheduled [address] [facility] - Test 00:00:00 malignant neoplasm Medical C enter of cervix (procedure) [code = 311469693] Future Scheduled [address] [facility] - Test 00:00:00 malignant neoplasm Medical C enter of breast (procedure) [code = 935844906] Future Scheduled [address] [facility] - Test 00:00:00 malignant neoplasm Medical C enter of colon (procedure) [code = 255984590] Results Test Description Test Time Test Comments Results Result Comments Source Fungus culture + smear 2020-01-21 17:29:00 Test Item Value Reference Range Interpretation Comme nts Result (test code = 6463-4) No fungus isolated in 28 days Fungus Smear (test code = 1406) No fungi seen [facility] + [id number] 17:29:00 Test Item Value Reference Range Interpretation Comments CULTURE (BEAKER) (test No fungus isolated in code = 1095) 28 days FUNGUS SMEAR (BEAKER) No fungi seen (test code = 1406) Anaerobic [id number] 18:10:00 Test Item Value Reference Range Interpretation Comments Result (test code = No anaerobes isolated 6463-4) [facility] [id number] 18:10:00 Test Item Value Reference Range Interpretation Comments CULTURE (BEAKER) (test No anaerobes isolated code = 1095) SARS-CoV2/RT-PCR (Asymptomatic ONLY)2020-01-03 11:25:00 Test Item Value Reference Range Interpretation Comments SARS-COV2/RT-PCR Negative Not Detected, (test code = Negative, See 62671-7) external report for linked test SARS-COV-2 [facility] PERFORMING LAB (test code = 54828-5) DIONI (test code = Negative result for this DIONI) test determines that SARS-CoV-2 RNA was not present in the [...] of the Act. Fact Sheet for Healthcare Providers:https://www.qu idel.com/sites/default/f disha/product/documents/F act_Sheet_HC_Providers_L dcn_XYFH-LkT-2.pdf Fact Sheet for Healthcare Patients:https://www.Mettl/sites/default/fi les/product/documents/Fa ct_Sheet_Patients_Lyra_S ARS-CoV-2.pdf Performing Laboratory:[facility] [place] [address] [facility] ([facility] & REF LABS)2020-01-03 11:25:00 Test Item Value Reference Range Interpretation Comments SARS-COV2/RT-PCR (test Negative Not Detected, Negative, code = 1048926) See external report for linked test SARS-COV-2 PERFORMING LAB [facility] (test code = 0635941) Negative result for this test determines that SARS-CoV-2 RNA was not present in the specimen above the Limit of Detection (LOD). However, Negative results do not preclude SARS-CoV-2 infection and should not be used as the sole basis for treatment or patient management decisions. Negative results mustbe combined with clinical observations, patient history, and epidemiological information. A false negative result may occur if a specimen is improperly collected, transported or handled. A false negative result should be considered if patient's recent exposures or clinical presentation indicate that COVID-19 (SARS-CoV-2) is likely and diagnostic tests for other causes of illness are negative. Re-testing should be considered in cases of suspected false negatives.The limit of detection for this assay is 800 copies/mL.This SARS CoV-2 test is a real-time RT-PCR test intended for the qualitative detection of nucleic acid from SARS-CoV-2 in a nasopharyngeal swab specimen collected from individuals susp ected of COVID-19 by their healthcare provider.This test has not been Food and Drug [...] is revoked under Section 564(g) of the Act.Fact Sheet for Healthcare Providers:https://www.Madmagz/sites/default/files/product/documents/Fact_Errol garciaq_XD_Tjwaimtus_Fyov_LPXT-FrL-0.pdfFact Sheet for Healthcare Patients:https://www.Madmagz/sites/default/files/product/ documents/Aknn_Rbpyg_Zsleskgj_Jvay_GKHM-ErI-6.pdfPerforming Laboratory:[facility], [place] [address]Lfvnu metabolic panel 2020-01-03 05:46:00 Test Item Value Reference Range Interpretation Comments Sodium (test code = 139 meq/L 534-256 7434-2) Potassium (test code = 4.0 meq/L 3.5-5.1 2823-3) Chloride (test code = 110 meq/L 98-107 H 2075-0) CO2 (test code = 29 meq/L 22-29 8-9) BUN (test code = 6 mg/dL 7-21 L 3094-0) Creatinine (test code 0.52 mg/dL 0.57-1.25 L = 2160-0) Glucose (test code = 78 mg/dL 70-105 2345-7) Calcium (test code = 7.7 mg/dL 8.4-10.2 L 52411-9) EGFR (test code = 119 mL/min/1.73 [place] [address]-5) NOT ACCURATE CREATININE CLEARANCE IN PREDICTING GLOMERULAR FILTRATION RATE . ESTIMATED GFR I S NOT APPLICABLE FOR DIALYSIS PATIENTS. DIONI (test code = DIONI) [employer] Field Technician ID - EDASI Lab Interpretation Abnormal (test code = 09196-1) [facility] METABOLIC [id number] 05:46:00 Test Item Value Reference Range Interpretation Comments SODIUM (BEAKER) 139 meq/L 136-145 (test code = 381) POTASSIUM (BEAKER) 4.0 meq/L 3.5-5.1 (test code = 379) CHLORIDE (BEAKER) 110 meq/L 98-107 H (test code = 382) CO2 (BEAKER) (test 29 meq/L -29 code = 355) BLOOD UREA NITROGEN 6 mg/dL 7-21 L (BEAKER) (test code = 354) CREATININE (BEAKER) 0.52 mg/dL 0.57-1.25 L (test code = 358) GLUCOSE RANDOM 78 mg/dL 70-105 (BEAKER) (test code = 652) CALCIUM (BEAKER) 7.7 mg/dL 8.4-10.2 L (test code = 697) EGFR (BEAKER) (test 119 mL/min/1.73 ESTIM ATED GFR IS code = 1092) sq m NOT ACCURATE CREATININE CLEARANCE IN PREDICTING GLOMERULAR FILTRATION RATE . ESTIMATED GFR I S NOT APPLICABLE FOR DIALYSIS PATIEN TS. [employer] Field Technician ID - [id number] 05:40:00 Test Item Value Reference Range Interpretation Comments Magnesium (test code = 1.7 mg/dL 1.6-2.6 37684-0) DIONI (test code = DIONI) [employer] Field Technician ID - EDASI Lab Interpretation (test Normal code = 44942-4) [facility] 05:40:00 Test Item Value Reference Range Interpretation Comments Phosphorus (test code = 3.4 mg/dL 2.3-4.7 2777-1) DIONI (test code = DIONI) [employer] Field Technician ID - EDASI Lab Interpretation (test Normal code = 03158-1) [facility]2020-07-30 05:40:00 Test Item Value Reference Range Interpretation Comments PHOSPHORUS (BEAKER) (test code = 3.4 mg/dL 2.3-4.7 604) [employer] Field Technician ID - [id number] 05:40:00 Test Item Value Reference Range Interpretation Comments MAGNESIUM (BEAKER) (test code = 1.7 mg/dL 1.6-2.6 627) [employer] Field Technician ID - EDASICBC with platelet count + automated [id number] 05:19:00 Test Item Value Reference Range Interpretation Comments WBC (test code = 6690-2) 6.5 3.5- 10.5 K/L RBC (test code = 789-8) 3.13 3.93- 5.22 M/L L MCHC (test code = 786-4) 30.8 32.2- 35.5 GM/DL L Hematocrit (test code = 4544-3) 23.4 % 34.1-44.9 L MCV (test code = 787-2) 74.8 fL 79.4-94.8 L MCH (test code = 785-6) 23.0 pg 25.6-32.2 L RDW (test code = 788-0) 23.9 % 11.7-14.4 H Platelets (test code = 777-3) 260 150- 450 K/CU MM MPV (test code = 65861-9) 10.4 fL 9.4-12.3 nRBC (test code = 413) 0 0- 0 /100 WBC % Neutros (test code = 429) 52 % % Lymphs (test code = 430) 34 % % Monos (test code = 431) 11 % % Eos (test code = 432) 2 % % Baso (test code = 437) 0 % # Neutros (test code = 670) 3.39 1.56- 6.13 K/L # Lymphs (test code = 414) 2.17 1.18- 3.74 K/L # Monos (test code = 415) 0.72 0.24- 0.36 K/L H # Eos (test code = 416) 0.12 0.04- 0.36 K/L # Baso (test code = 417) 0.02 0.01- 0.08 K/L Immature Granulocytes-Relative 1 % 0-1 (test code = 2801) Lab Interpretation (test code = Abnormal 62853-7) [facility] W/PLT COUNT & AUTO [id number] 05:19:00 Test Item Value Reference Range Interpretation Comments WHITE BLOOD CELL COUNT (BEAKER) 6.5 K/ L 3.5-10.5 (test code = 775) RED BLOOD CELL COUNT (BEAKER) 3.13 M/ L 3.93-5.22 L (test code = 761) HEMOGLOBIN (BEAKER) (test code = 7.2 GM/DL 11.2-15.7 L 410) HEMATOCRIT (BEAKER) (test code = 23.4 % 34.1-44.9 L 411) MEAN CORPUSCULAR VOLUME (BEAKER) 74.8 fL 79.4-94.8 L (test code = 753) MEAN CORPUSCULAR HEMOGLOBIN 23.0 pg 25.6-32.2 L (BEAKER) (test code = 751) MEAN CORPUSCULAR HEMOGLOBIN CONC 30.8 GM/DL 32.2-35.5 L (BEAKER) (test code = 752) RED CELL DISTRIBUTION WIDTH 23.9 % 11.7-14.4 H (BEAKER) (test code = 412) PLATELET COUNT (BEAKER) (test 260 K/CU MM 150-450 code = 756) MEAN PLATELET VOLUME (BEAKER) 10.4 fL 9.4-12.3 (test code = 754) NUCLEATED RED BLOOD CELLS 0 /100 WBC 0-0 (BEAKER) (test code = 413) NEUTROPHILS RELATIVE PERCENT 52 % (BEAKER) (test code = 429) LYMPHOCYTES RELATIVE PERCENT 34 % (BEAKER) (test code = 430) MONOCYTES RELATIVE PERCENT 11 % (BEAKER) (test code = 431) EOSINOPHILS RELATIVE PERCENT 2 % (BEAKER) (test code = 432) BASOPHILS RELATIVE PERCENT 0 % (BEAKER) (test code = 437) NEUTROPHILS ABSOLUTE COUNT 3.39 K/ L 1.56-6.13 (BEAKER) (test code = 670) LYMPHOCYTES ABSOLUTE COUNT 2.17 K/ L 1.18-3.74 (BEAKER) (test code = 414) MONOCYTES ABSOLUTE COUNT (BEAKER) 0.72 K/ L 0.24-0.36 H (test code = 415) EOSINOPHILS ABSOLUTE COUNT 0.12 K/ L 0.04-0.36 (BEAKER) (test code = 416) BASOPHILS ABSOLUTE COUNT (BEAKER) 0.02 K/ L 0.01-0.08 (test code = 417) IMMATURE GRANULOCYTES-RELATIVE 1 % 0-1 PERCENT (BEAKER) (test code = 2801) H. pylori antigen, [id number] 21:44:00 Test Item Value Reference Range Interpretation Comments H. pylori Not detected Not detected Antimicrobial s, proton Antigen (test pump inhibitor s, and code = bismuth 4200287) preparationsinh ibit H. pylori and osman stion up to two weeks pr ior to testing may cau se false negative result s. If clinically brittany cated the test should be repeated on a new specim en obtained two we eks after discontinuing t reatment. DIONI (test Performing Lab code = DIONI) *[facility], [id number] [place] [id number] Lisandro Brower MD, PhD [facility] METABOLIC [id number] 05:31:00 Test Item Value Reference Range Interpretation Comments SODIUM (BEAKER) 139 meq/L 136-145 (test code = 381) POTASSIUM (BEAKER) 3.4 meq/L 3.5-5.1 L (test code = 379) CHLORIDE (BEAKER) 108 meq/L 98-107 H (test code = 382) CO2 (BEAKER) (test 27 meq/L 22-29 code = 355) BLOOD UREA NITROGEN 5 mg/dL 7-21 L (BEAKER) (test code = 354) CREATININE (BEAKER) 0.53 mg/dL 0.57-1.25 L (test code = 358) GLUCOSE RANDOM 92 mg/dL 70-105 (BEAKER) (test code = 652) CALCIUM (BEAKER) 7.8 mg/dL 8.4-10.2 L (test code = 697) EGFR (BEAKER) (test 117 mL/min/1.73 ESTIM ATED GFR IS code = 1092) sq m NOT ACCURATE CREATININE CLEARANCE IN PREDICTING GLOMERULAR FILTRATION RATE . ESTIMATED GFR I S NOT APPLICABLE FOR DIALYSIS PATIEN TS. [facility] [employer] Field Technician ID - EDASICBC W/PLT COUNT & AUTO [id number] 05:24:00 Test Item Value Reference Range Interpretation Comments WHITE BLOOD CELL COUNT (BEAKER) 7.6 K/ L 3.5-10.5 (test code = 775) RED BLOOD CELL COUNT (BEAKER) 3.55 M/ L 3.93-5.22 L (test code = 761) HEMOGLOBIN (BEAKER) (test code = 8.3 GM/DL 11.2-15.7 L 410) HEMATOCRIT (BEAKER) (test code = 26.1 % 34.1-44.9 L 411) MEAN CORPUSCULAR VOLUME (BEAKER) 73.5 fL 79.4-94.8 L (test code = 753) MEAN CORPUSCULAR HEMOGLOBIN 23.4 pg 25.6-32.2 L (BEAKER) (test code = 751) MEAN CORPUSCULAR HEMOGLOBIN CONC 31.8 GM/DL 32.2-35.5 L (BEAKER) (test code = 752) RED CELL DISTRIBUTION WIDTH 23.4 % 11.7-14.4 H (BEAKER) (test code = 412) PLATELET COUNT (BEAKER) (test 253 K/CU MM 150-450 code = 756) MEAN PLATELET VOLUME (BEAKER) 10.4 fL 9.4-12.3 (test code = 754) NUCLEATED RED BLOOD CELLS 0 /100 WBC 0-0 (BEAKER) (test code = 413) NEUTROPHILS RELATIVE PERCENT 63 % (BEAKER) (test code = 429) LYMPHOCYTES RELATIVE PERCENT 24 % (BEAKER) (test code = 430) MONOCYTES RELATIVE PERCENT 10 % (BEAKER) (test code = 431) EOSINOPHILS RELATIVE PERCENT 2 % (BEAKER) (test code = 432) BASOPHILS RELATIVE PERCENT 0 % (BEAKER) (test code = 437) NEUTROPHILS ABSOLUTE COUNT 4.76 K/ L 1.56-6.13 (BEAKER) (test code = 670) LYMPHOCYTES ABSOLUTE COUNT 1.83 K/ L 1.18-3.74 (BEAKER) (test code = 414) MONOCYTES ABSOLUTE COUNT (BEAKER) 0.74 K/ L 0.24-0.36 H (test code = 415) EOSINOPHILS ABSOLUTE COUNT 0.13 K/ L 0.04-0.36 (BEAKER) (test code = 416) BASOPHILS ABSOLUTE COUNT (BEAKER) 0.02 K/ L 0.01-0.08 (test code = 417) IMMATURE GRANULOCYTES-RELATIVE 1 % 0-1 PERCENT (BEAKER) (test code = 2801) [id number] 05:03:00 Test Item Value Reference Range Interpretation Comments PHOSPHORUS (BEAKER) (test code = 3.6 mg/dL 2.3-4.7 604) [facility] Field Technician ID - [id number] 05:03:00 Test Item Value Reference Range Interpretation Comments MAGNESIUM (BEAKER) (test code = 1.6 mg/dL 1.6-2.6 627) [facility] Field Technician ID - EDASICBC W/PLT COUNT & AUTO [id number] 05:56:00 Test Item Value Reference Range Interpretation Comments WHITE BLOOD CELL COUNT (BEAKER) 8.4 K/ L 3.5-10.5 (test code = 775) RED BLOOD CELL COUNT (BEAKER) 3.42 M/ L 3.93-5.22 L (test code = 761) HEMOGLOBIN (BEAKER) (test code = 8.0 GM/DL 11.2-15.7 L 410) HEMATOCRIT (BEAKER) (test code = 25.6 % 34.1-44.9 L 411) MEAN CORPUSCULAR VOLUME (BEAKER) 74.9 fL 79.4-94.8 L (test code = 753) MEAN CORPUSCULAR HEMOGLOBIN 23.4 pg 25.6-32.2 L (BEAKER) (test code = 751) MEAN CORPUSCULAR HEMOGLOBIN CONC 31.3 GM/DL 32.2-35.5 L (BEAKER) (test code = 752) RED CELL DISTRIBUTION WIDTH 22.8 % 11.7-14.4 H (BEAKER) (test code = 412) PLATELET COUNT (BEAKER) (test 289 K/CU MM 150-450 code = 756) MEAN PLATELET VOLUME (BEAKER) 10.7 fL 9.4-12.3 (test code = 754) NUCLEATED RED BLOOD CELLS 0 /100 WBC 0-0 (BEAKER) (test code = 413) NEUTROPHILS RELATIVE PERCENT 59 % (BEAKER) (test code = 429) LYMPHOCYTES RELATIVE PERCENT 27 % (BEAKER) (test code = 430) MONOCYTES RELATIVE PERCENT 9 % (BEAKER) (test code = 431) EOSINOPHILS RELATIVE PERCENT 2 % (BEAKER) (test code = 432) BASOPHILS RELATIVE PERCENT 0 % (BEAKER) (test code = 437) NEUTROPHILS ABSOLUTE COUNT 4.96 K/ L 1.56-6.13 (BEAKER) (test code = 670) LYMPHOCYTES ABSOLUTE COUNT 2.29 K/ L 1.18-3.74 (BEAKER) (test code = 414) MONOCYTES ABSOLUTE COUNT (BEAKER) 0.75 K/ L 0.24-0.36 H (test code = 415) EOSINOPHILS ABSOLUTE COUNT 0.19 K/ L 0.04-0.36 (BEAKER) (test code = 416) BASOPHILS ABSOLUTE COUNT (BEAKER) 0.03 K/ L 0.01-0.08 (test code = 417) IMMATURE GRANULOCYTES-RELATIVE 2 % 0-1 H PERCENT (BEAKER) (test code = 2801) [id number] 05:09:00 Test Item Value Reference Range Interpretation Comments PHOSPHORUS (BEAKER) (test code = 3.8 mg/dL 2.3-4.7 604) [facility] Field Technician ID - [id number] 05:09:00 Test Item Value Reference Range Interpretation Comments MAGNESIUM (BEAKER) (test code = 1.6 mg/dL 1.6-2.6 627) [facility] Field Technician ID - EDASIBASIC METABOLIC [id number] 05:09:00 Test Item Value Reference Range Interpretation Comments SODIUM (BEAKER) 141 meq/L 136-145 (test code = 381) POTASSIUM (BEAKER) 3.7 meq/L 3.5-5.1 (test code = 379) CHLORIDE (BEAKER) 112 meq/L 98-107 H (test code = 382) CO2 (BEAKER) (test 27 meq/L 22-29 code = 355) BLOOD UREA NITROGEN 2 mg/dL 7-21 L (BEAKER) (test code = 354) CREATININE (BEAKER) 0.54 mg/dL 0.57-1.25 L (test code = 358) GLUCOSE RANDOM 105 mg/dL 70-105 (BEAKER) (test code = 652) CALCIUM (BEAKER) 8.0 mg/dL 8.4-10.2 L (test code = 697) EGFR (BEAKER) (test 114 mL/min/1.73 ESTIM ATED GFR IS code = 1092) sq m NOT ACCURATE CREATININE CLEARANCE IN PREDICTING GLOMERULAR FILTRATION RATE . ESTIMATED GFR I S NOT APPLICABLE FOR DIALYSIS PATIEN TS. [facility] Field Technician ID - EDASIBASIC METABOLIC [id number] 06:51:00 Test Item Value Reference Range Interpretation Comments SODIUM (BEAKER) 135 meq/L 136-145 L (test code = 381) POTASSIUM (BEAKER) 4.0 meq/L 3.5-5.1 Specimen slightly (test code = 379) hemolyzed CHLORIDE (BEAKER) 109 meq/L 98-107 H (test code = 382) CO2 (BEAKER) (test 21 meq/L 22-29 L code = 355) BLOOD UREA NITROGEN 2 mg/dL 7-21 L (BEAKER) (test code = 354) CREATININE (BEAKER) 0.52 mg/dL 0.57-1.25 L Specimen slightly (test code = 358) hemolyzed GLUCOSE RANDOM 79 mg/dL 70-105 (BEAKER) (test code = 652) CALCIUM (BEAKER) 7.7 mg/dL 8.4-10.2 L (test code = 697) EGFR (BEAKER) (test 119 mL/min/1.73 ESTIM ATED GFR IS code = 1092) sq m NOT ACCURATE CREATININE CLEARANCE IN PREDICTING GLOMERULAR FILTRATION RATE . ESTIMATED GFR I S NOT APPLICABLE FOR DIALYSIS PATIEN TS. [facility] Field Technician ID - [id number] 06:45:00 Test Item Value Reference Range Interpretation Comments MAGNESIUM (BEAKER) 1.6 mg/dL 1.6-2.6 Specimen slightly (test code = 627) hemolyzed [facility] Field Technician ID - [id number] 06:45:00 Test Item Value Reference Range Interpretation Comments PHOSPHORUS (BEAKER) 3.5 mg/dL 2.3-4.7 Specimen slightly (test code = 604) hemolyzed [facility] Field Technician ID - DBCBC W/PLT COUNT & AUTO [id number] 06:29:00 Test Item Value Reference Range Interpretation Comments WHITE BLOOD CELL COUNT (BEAKER) 7.7 K/ L 3.5-10.5 (test code = 775) RED BLOOD CELL COUNT (BEAKER) 4.06 M/ L 3.93-5.22 (test code = 761) HEMOGLOBIN (BEAKER) (test code = 9.3 GM/DL 11.2-15.7 L 410) HEMATOCRIT (BEAKER) (test code = 31.4 % 34.1-44.9 L 411) MEAN CORPUSCULAR VOLUME (BEAKER) 77.3 fL 79.4-94.8 L (test code = 753) MEAN CORPUSCULAR HEMOGLOBIN 22.9 pg 25.6-32.2 L (BEAKER) (test code = 751) MEAN CORPUSCULAR HEMOGLOBIN CONC 29.6 GM/DL 32.2-35.5 L (BEAKER) (test code = 752) RED CELL DISTRIBUTION WIDTH 23.1 % 11.7-14.4 H (BEAKER) (test code = 412) PLATELET COUNT (BEAKER) (test 276 K/CU MM 150-450 code = 756) MEAN PLATELET VOLUME (BEAKER) 10.4 fL 9.4-12.3 (test code = 754) NUCLEATED RED BLOOD CELLS 0 /100 WBC 0-0 (BEAKER) (test code = 413) NEUTROPHILS RELATIVE PERCENT 53 % (BEAKER) (test code = 429) LYMPHOCYTES RELATIVE PERCENT 30 % (BEAKER) (test code = 430) MONOCYTES RELATIVE PERCENT 11 % (BEAKER) (test code = 431) EOSINOPHILS RELATIVE PERCENT 4 % (BEAKER) (test code = 432) BASOPHILS RELATIVE PERCENT 1 % (BEAKER) (test code = 437) NEUTROPHILS ABSOLUTE COUNT 4.02 K/ L 1.56-6.13 (BEAKER) (test code = 670) LYMPHOCYTES ABSOLUTE COUNT 2.27 K/ L 1.18-3.74 (BEAKER) (test code = 414) MONOCYTES ABSOLUTE COUNT (BEAKER) 0.84 K/ L 0.24-0.36 H (test code = 415) EOSINOPHILS ABSOLUTE COUNT 0.31 K/ L 0.04-0.36 (BEAKER) (test code = 416) BASOPHILS ABSOLUTE COUNT (BEAKER) 0.05 K/ L 0.01-0.08 (test code = 417) IMMATURE GRANULOCYTES-RELATIVE 2 % 0-1 H PERCENT (BEAKER) (test code = 2801) BASIC METABOLIC [id number] 05:57:00 Test Item Value Reference Range Interpretation Comments SODIUM (BEAKER) 135 meq/L 136-145 L (test code = 381) POTASSIUM (BEAKER) 3.6 meq/L 3.5-5.1 (test code = 379) CHLORIDE (BEAKER) 109 meq/L 98-107 H (test code = 382) CO2 (BEAKER) (test 23 meq/L 22-29 code = 355) BLOOD UREA NITROGEN 3 mg/dL 7-21 L (BEAKER) (test code = 354) CREATININE (BEAKER) 0.54 mg/dL 0.57-1.25 L (test code = 358) GLUCOSE RANDOM 86 mg/dL 70-105 (BEAKER) (test code = 652) CALCIUM (BEAKER) 7.5 mg/dL 8.4-10.2 L (test code = 697) EGFR (BEAKER) (test 114 mL/min/1.73 ESTIM ATED GFR IS code = 1092) sq m NOT ACCURATE CREATININE CLEARANCE IN PREDICTING GLOMERULAR FILTRATION RATE . ESTIMATED GFR I S NOT APPLICABLE FOR DIALYSIS PATIEN TS. [facility] Field Technician ID - [id number] 05:49:00 Test Item Value Reference Range Interpretation Comments PHOSPHORUS (BEAKER) (test code = 3.1 mg/dL 2.3-4.7 604) [facility] Field Technician ID - [id number] 05:49:00 Test Item Value Reference Range Interpretation Comments MAGNESIUM (BEAKER) (test code = 1.6 mg/dL 1.6-2.6 627) [facility] Field Technician ID - DBVancomycin level, [id number] 05:36:00 Test Item Value Reference Range Interpretation Comments Vancomycin Tr (test code = 10.9 ug/mL 1020 4092-3) DIONI (test code = DIONI) [facility] Field Technician ID - DB Lab Interpretation (test Normal code = 69228-5) [facility] [id number] 05:36:00 Test Item Value Reference Range Interpretation Comments VANCOMYCIN TROUGH (BEAKER) (test 10.9 ug/mL 10.0-20.0 code = 522) [facility] Field Technician ID - DBCBC W/PLT COUNT & AUTO [id number] 05:29:00 Test Item Value Reference Range Interpretation Comments WHITE BLOOD CELL COUNT (BEAKER) 7.6 K/ L 3.5-10.5 (test code = 775) RED BLOOD CELL COUNT (BEAKER) 3.63 M/ L 3.93-5.22 L (test code = 761) HEMOGLOBIN (BEAKER) (test code = 8.3 GM/DL 11.2-15.7 L 410) HEMATOCRIT (BEAKER) (test code = 27.4 % 34.1-44.9 L 411) MEAN CORPUSCULAR VOLUME (BEAKER) 75.5 fL 79.4-94.8 L (test code = 753) MEAN CORPUSCULAR HEMOGLOBIN 22.9 pg 25.6-32.2 L (BEAKER) (test code = 751) MEAN CORPUSCULAR HEMOGLOBIN CONC 30.3 GM/DL 32.2-35.5 L (BEAKER) (test code = 752) RED CELL DISTRIBUTION WIDTH 22.1 % 11.7-14.4 H (BEAKER) (test code = 412) PLATELET COUNT (BEAKER) (test 263 K/CU MM 150-450 code = 756) MEAN PLATELET VOLUME (BEAKER) 10.8 fL 9.4-12.3 (test code = 754) NUCLEATED RED BLOOD CELLS 0 /100 WBC 0-0 (BEAKER) (test code = 413) NEUTROPHILS RELATIVE PERCENT 54 % (BEAKER) (test code = 429) LYMPHOCYTES RELATIVE PERCENT 27 % (BEAKER) (test code = 430) MONOCYTES RELATIVE PERCENT 12 % (BEAKER) (test code = 431) EOSINOPHILS RELATIVE PERCENT 4 % (BEAKER) (test code = 432) BASOPHILS RELATIVE PERCENT 1 % (BEAKER) (test code = 437) NEUTROPHILS ABSOLUTE COUNT 4.11 K/ L 1.56-6.13 (BEAKER) (test code = 670) LYMPHOCYTES ABSOLUTE COUNT 2.05 K/ L 1.18-3.74 (BEAKER) (test code = 414) MONOCYTES ABSOLUTE COUNT (BEAKER) 0.88 K/ L 0.24-0.36 H (test code = 415) EOSINOPHILS ABSOLUTE COUNT 0.30 K/ L 0.04-0.36 (BEAKER) (test code = 416) BASOPHILS ABSOLUTE COUNT (BEAKER) 0.04 K/ L 0.01-0.08 (test code = 417) IMMATURE GRANULOCYTES-RELATIVE 3 % 0-1 H PERCENT (BEAKER) (test code = 2801) BASIC METABOLIC [id number] 06:37:00 Test Item Value Reference Range Interpretation Comments SODIUM (BEAKER) 136 meq/L 136-145 (test code = 381) POTASSIUM (BEAKER) 3.5 meq/L 3.5-5.1 Specimen slightly (test code = 379) hemolyzed CHLORIDE (BEAKER) 107 meq/L 98-107 (test code = 382) CO2 (BEAKER) (test 23 meq/L 22-29 code = 355) BLOOD UREA NITROGEN 5 mg/dL 7-21 L (BEAKER) (test code = 354) CREATININE (BEAKER) 0.54 mg/dL 0.57-1.25 L Specimen slightly (test code = 358) hemolyzed GLUCOSE RANDOM 92 mg/dL 70-105 (BEAKER) (test code = 652) CALCIUM (BEAKER) 7.8 mg/dL 8.4-10.2 L (test code = 697) EGFR (BEAKER) (test 114 mL/min/1.73 ESTIM ATED GFR IS code = 1092) sq m NOT ACCURATE CREATININE CLEARANCE IN PREDICTING GLOMERULAR FILTRATION RATE . ESTIMATED GFR I S NOT APPLICABLE FOR DIALYSIS PATIEN TS. [facility] Field Technician ID - [id number] 06:18:00 Test Item Value Reference Range Interpretation Comments MAGNESIUM (BEAKER) 1.6 mg/dL 1.6-2.6 Specimen slightly (test code = 627) hemolyzed [facility] Field Technician ID - [id number] 06:18:00 Test Item Value Reference Range Interpretation Comments PHOSPHORUS (BEAKER) 2.7 mg/dL 2.3-4.7 Specimen slightly (test code = 604) hemolyzed [facility] Field Technician ID - EDASICBC W/PLT COUNT & AUTO [id number] 05:33:00 Test Item Value Reference Range Interpretation Comments WHITE BLOOD CELL COUNT (BEAKER) 7.6 K/ L 3.5-10.5 (test code = 775) RED BLOOD CELL COUNT (BEAKER) 3.68 M/ L 3.93-5.22 L (test code = 761) HEMOGLOBIN (BEAKER) (test code = 8.5 GM/DL 11.2-15.7 L 410) HEMATOCRIT (BEAKER) (test code = 27.2 % 34.1-44.9 L 411) MEAN CORPUSCULAR VOLUME (BEAKER) 73.9 fL 79.4-94.8 L (test code = 753) MEAN CORPUSCULAR HEMOGLOBIN 23.1 pg 25.6-32.2 L (BEAKER) (test code = 751) MEAN CORPUSCULAR HEMOGLOBIN CONC 31.3 GM/DL 32.2-35.5 L (BEAKER) (test code = 752) RED CELL DISTRIBUTION WIDTH 21.8 % 11.7-14.4 H (BEAKER) (test code = 412) PLATELET COUNT (BEAKER) (test 259 K/CU MM 150-450 code = 756) MEAN PLATELET VOLUME (BEAKER) 10.1 fL 9.4-12.3 (test code = 754) NUCLEATED RED BLOOD CELLS 0 /100 WBC 0-0 (BEAKER) (test code = 413) NEUTROPHILS RELATIVE PERCENT 58 % (BEAKER) (test code = 429) LYMPHOCYTES RELATIVE PERCENT 26 % (BEAKER) (test code = 430) MONOCYTES RELATIVE PERCENT 10 % (BEAKER) (test code = 431) EOSINOPHILS RELATIVE PERCENT 3 % (BEAKER) (test code = 432) BASOPHILS RELATIVE PERCENT 0 % (BEAKER) (test code = 437) NEUTROPHILS ABSOLUTE COUNT 4.43 K/ L 1.56-6.13 (BEAKER) (test code = 670) LYMPHOCYTES ABSOLUTE COUNT 1.97 K/ L 1.18-3.74 (BEAKER) (test code = 414) MONOCYTES ABSOLUTE COUNT (BEAKER) 0.78 K/ L 0.24-0.36 H (test code = 415) EOSINOPHILS ABSOLUTE COUNT 0.23 K/ L 0.04-0.36 (BEAKER) (test code = 416) BASOPHILS ABSOLUTE COUNT (BEAKER) 0.03 K/ L 0.01-0.08 (test code = 417) IMMATURE GRANULOCYTES-RELATIVE 3 % 0-1 H PERCENT (BEAKER) (test code = 2801) Prepare Leuko-Red [id number] 23:54:00 Test Item Value Reference Range Interpretation Comments CROSSMATCH (test code = 2264) COMPATIBLE Unit ABO (test code = O Pos 5163993) UNIT NUMBER (test code = [id number] 934-0) Status (test code = 1170301) TX_TIMEINCHART Blood Bank Product (test code RED BLOOD CELLS = 2263) PRODUCT CODE (test code = W2383D98 933-2) [facility] + gram [id number] 14:41:00 Test Item Value Reference Range Interpretation Comments Result (test code = 6463-4) No growth Gram Stain Result (test No organisms seen code = 1123) [facility] + GRAM [id number] 14:41:00 Test Item Value Reference Range Interpretation Comments CULTURE (BEAKER) (test code No growth = 1095) GRAM STAIN RESULT (BEAKER) 2+ WBCs (test code = 1123) GRAM STAIN RESULT (BEAKER) No organisms seen (test code = 49516) Hepatic function [id number] 05:41:00 Test Item Value Reference Range Interpretation Comments Protein, Total (test code 5.6 6.0- 8.3 gm/dL L = 2885-2) Albumin (test code = 2.6 g/dL 3.5-5 L 81151-8) Total Bilirubin (test code 0.6 mg/dL 0.2-1.2 = 1975-2) Bilirubin, Direct (test 0.5 mg/dL 0.1-0.5 code = 1967-7) Alkaline Phosphatase (test 51 U/L 40-150 code = 6768-6) AST (test code = 1920-8) 48 U/L 5-34 H ALT (test code = 1742-6) 19 U/L 6-55 DOINI (test code = DIONI) [facility] [employer] [facility] Field Technician ID - EDASI Lab Interpretation (test Abnormal code = 13215-2) [id number] 05:41:00 Test Item Value Reference Range Interpretation Comments PHOSPHORUS (BEAKER) (test code = 2.6 mg/dL 2.3-4.7 604) [facility] Field Technician ID - [id number] 05:41:00 Test Item Value Reference Range Interpretation Comments MAGNESIUM (BEAKER) (test code = 1.7 mg/dL 1.6-2.6 627) [facility] Field Technician ID - EDASIBASIC METABOLIC [id number] 05:41:00 Test Item Value Reference Range Interpretation Comments SODIUM (BEAKER) 134 meq/L 136-145 L (test code = 381) POTASSIUM (BEAKER) 3.6 meq/L 3.5-5.1 (test code = 379) CHLORIDE (BEAKER) 105 meq/L 98-107 (test code = 382) CO2 (BEAKER) (test 23 meq/L 22-29 code = 355) BLOOD UREA NITROGEN 9 mg/dL 7-21 (BEAKER) (test code = 354) CREATININE (BEAKER) 0.53 mg/dL 0.57-1.25 L (test code = 358) GLUCOSE RANDOM 64 mg/dL 70-105 L (BEAKER) (test code = 652) CALCIUM (BEAKER) 8.0 mg/dL 8.4-10.2 L (test code = 697) EGFR (BEAKER) (test 117 mL/min/1.73 ESTIM ATED GFR IS code = 1092) sq m NOT ACCURATE CREATININE CLEARANCE IN PREDICTING GLOMERULAR FILTRATION RATE . ESTIMATED GFR I S NOT APPLICABLE FOR DIALYSIS PATIEN TS. [facility] Field Technician ID - EDASIHEPATIC FUNCTION [id number] 05:41:00 Test Item Value Reference Range Interpretation Comments TOTAL PROTEIN (BEAKER) (test code = 5.6 gm/dL 6.0-8.3 L 770) ALBUMIN (BEAKER) (test code = 1145) 2.6 g/dL 3.5-5.0 L BILIRUBIN TOTAL (BEAKER) (test code 0.6 mg/dL 0.2-1.2 = 377) BILIRUBIN DIRECT (BEAKER) (test 0.5 mg/dL 0.1-0.5 code = 706) ALKALINE PHOSPHATASE (BEAKER) (test 51 U/L 40-150 code = 346) AST (SGOT) (BEAKER) (test code = 48 U/L 5-34 H 353) ALT (SGPT) (BEAKER) (test code = 19 U/L 6-55 347) [facility] Field Technician ID - EDASICBC W/PLT COUNT & AUTO [id number] 05:38:00 Test Item Value Reference Range Interpretation Comments WHITE BLOOD CELL COUNT (BEAKER) 10.3 K/ L 3.5-10.5 (test code = 775) RED BLOOD CELL COUNT (BEAKER) 4.08 M/ L 3.93-5.22 (test code = 761) HEMOGLOBIN (BEAKER) (test code = 9.4 GM/DL 11.2-15.7 L 410) HEMATOCRIT (BEAKER) (test code = 30.2 % 34.1-44.9 L 411) MEAN CORPUSCULAR VOLUME (BEAKER) 74.0 fL 79.4-94.8 L (test code = 753) MEAN CORPUSCULAR HEMOGLOBIN 23.0 pg 25.6-32.2 L (BEAKER) (test code = 751) MEAN CORPUSCULAR HEMOGLOBIN CONC 31.1 GM/DL 32.2-35.5 L (BEAKER) (test code = 752) RED CELL DISTRIBUTION WIDTH 21.3 % 11.7-14.4 H (BEAKER) (test code = 412) PLATELET COUNT (BEAKER) (test 247 K/CU MM 150-450 code = 756) MEAN PLATELET VOLUME (BEAKER) 9.8 fL 9.4-12.3 (test code = 754) NUCLEATED RED BLOOD CELLS 0 /100 WBC 0-0 (BEAKER) (test code = 413) NEUTROPHILS RELATIVE PERCENT 77 % (BEAKER) (test code = 429) LYMPHOCYTES RELATIVE PERCENT 12 % (BEAKER) (test code = 430) MONOCYTES RELATIVE PERCENT 8 % (BEAKER) (test code = 431) EOSINOPHILS RELATIVE PERCENT 1 % (BEAKER) (test code = 432) BASOPHILS RELATIVE PERCENT 0 % (BEAKER) (test code = 437) NEUTROPHILS ABSOLUTE COUNT 7.91 K/ L 1.56-6.13 H (BEAKER) (test code = 670) LYMPHOCYTES ABSOLUTE COUNT 1.27 K/ L 1.18-3.74 (BEAKER) (test code = 414) MONOCYTES ABSOLUTE COUNT (BEAKER) 0.82 K/ L 0.24-0.36 H (test code = 415) EOSINOPHILS ABSOLUTE COUNT 0.07 K/ L 0.04-0.36 (BEAKER) (test code = 416) BASOPHILS ABSOLUTE COUNT (BEAKER) 0.03 K/ L 0.01-0.08 (test code = 417) IMMATURE GRANULOCYTES-RELATIVE 2 % 0-1 H PERCENT (BEAKER) (test code = 2801) Tissue [id number] 14:02:00 Test Item Value Reference Range Interpretation Comments Case Report (test code Surgical Pathology = 104) Report Case: [id number] Authorizing Provider: Dougie Montoya MD Collected: 12/25/2019 08:20 AM Ordering Location: [facility] Received: 12/25/2019 11:14 AM SERVICES Pathologist: Losi Metz MD Specimens: A) - Stomach, Double stitch = posterior perforation. Short stitch=Distal Margin B) - Omentum DIAGNOSIS (test code = [id number]) uZzEwMzNcZnRuYmpcdWMxIH yfonNoPTnfx9BoB7JpJgGlW FxhbnNpXGRlZmxhbmcxMDMz GTV1chHmSZEwVMeiUQZtQNt wQz3pnWZkkSodIvMtQYZup6 mpixBVxkerdTw7t2afLAPhM gK6wUZpEJrbQ2ytdaTemBKa PIPnOSe9uE58XLQeoG5tmAU jBBiuofCoLnV5FOpuMKOjEh D6VOZwjFSeXYVmF7suHKVfN DyvFFCaNRubjOMmMVJ9qVnk l6A5dLVoyMXqeUznWyUsMtZ jXIIAi1PsBJe5qExeP8QtOL ZyZkA1qWDvGCHvZNntDQUjL PUpvsE2iX30SHcrytU1aGRu u7Yiu32mv838sW7pnJIxPOX 0MCTpOBApdPDwXMYlICF8HT XkeKEeW8k5HaQzxGEqX9V5O aYakOEuI6T3UqHcoEQrA9H6 ZvLoeISjEHGlaJXyTr2kySB ksTUehw3eoi95MSH2v1FdxI huHGT5CSC5RtCxQg9olQOfV BVySK4rIpXplUNuCPTycs42 hGlfIPijbrSiuP2pEbMpUCP qsFWqFUIdFE2zwAEjXDWdtR 5ucmxjXHBnYnJkcmhlYWRcc FiibiGqXu3buPkaBIF7AIqe G4mfdY2gLiA5GKcdZ7szsJ0 kEIy5PNvxpYI9HBWzbP3yZJ 8vzrcph2qjIgRyCZ7hptafq 1ywAbInPA2cnfh6j9kcYfWk ES8jhjrpy6awNuMtECzbMUI myqwyJWRdv9EidmayDTEvi2 DfH2ZurSxrU13ofXlcB37oD NZxsZwnzN4kwIrrqP3iSmNr ZnMyNFxxbFxwbGFpblxmMVx mczIwXGxhbmcxMDMzXGhpY2 usEjZzTYLbuMbkVRehs7NbY GYxXGZzMjBccGFyIEEuIFNU L25TS8gjSUNGF6IMUEGCSHM NPiADIZ4TWBpcrCLbPGBdMR AgLSBHQVNUUklDIFBFUkZPU qNQJU9MRAeGZXdoCVYDUZDe FI7HZCAIMp5FIDBeWM2BPLN YWIVPUO6PREWSWWZKTZVTN0 tRIRGaUPZhlwOuNJJyCA0sD JWNTOqVHTzsQqGOGAQGHW4G UD9DSqxQYoPFUSNWUVTmF3z JCCTVUPJYE6kTDCZciTEuTK AgICAgLSBESVNUQUwgUkVTR ZZPSM7BCF6QHfeHZwSDBVOQ CWUxRY7WX2AQPGCGCBZKAsY BVjCLQY8IGSSUV31kCNLwtr BlVOGaID9tNgDGUAVGQaHpY c3FKU5URKnNKdNCB5rzvAXx XHBhciBCLiBPTUVOVFVNLCB EDLDNE6REU412JCWmmyBnEP EtBQ8jNLYXTS9BMGWLVPZOF YWpW0vODVULH4PSKJEYTxMp X0kHA35KJsIHGhIQFD6OEPS OE65hKNxzOBF9q4xykQLqQE NzdGUxODAwMFxhbnNpXGRlZ kheztfzIEDeDZO6cjZmRHAs EBjhRKCzHPosFc5xoGPmjCn kFiXiSEPxh8bbjaDJjksfrT z6q0tuQVCpLrX1bBWaUDbhC 0ygbyOdzOLqDOJiTQh4bI44 XCEblH2pnCAlMOeateCwApF 9JLovAMJpMwM0HUItuRVkHC GvO6obAODlFRjzOJCfQCzdk PRdMAE8uOygi9G3aOTfkMJs jJwsBwRuYyDyGiOMy1HkSLf 4gLsmB7DdNUQgYnU4yJFnQX VyVPeqKDMwBZEvurS0zX06T LsiaaO4vPRzn2Oed97lu361 mK7uuTHdDJL9VTCmCDKasWK xTDTiRCG8XTOxhRBmU2zmER LgDM3vbkyiCUzaLUjfVCRao MM4AUJkmWGnJ7VqDPAlMGqp RORwxaa4EiTuPa0hpQPvzYs fBKxcm6uis6wfoNGvYlb4LS UaSrVgIkegXNatm8Moh3txH LSuih6rVBH6tRLvwMjpf6M8 pANvZASzoESsOFZbTU7zqXB hDFEklE9ljggcUXVpCqXqbv yvVBKgoIxfoqHiOf3ldNbcK SK0IEngT8bjjS3zEyE3LHed E7evxD3sRZp4RUveKZIpgXG 8zfY3PGJspFGfK7JcqM7qAT CnJW1ouxv2r9rdUKM6QBblZ FZcMvM3rhA5GULspQQlKHNm nQyaOIknl646OQR2YkPtMWN fy9TqA9FhxJbeX32diVakH4 3jYCOtpQfbrD8koUeyuK3oV vLeIoXeCSarpCmdJB0zKARh Q0aqcRLcGJImINVxB9leDhX vxJ0jnGcfVZqsqaEvDNZlDp q2WTTuqBYoIUJjXos9AXKdF NOdA07adayyUEK0bZ6kg0qv c0UoTQasQZP5UYGnf35fGEl mpmC2LVtzQa97EWdgUIG7XK csJPT1sX== CPT Code(s) (test code [id number] = 3357) mSLXct5tjFWQqfMVsJfZuNv NcZnRuYmpcdWMxXGRlZmYwe 3jwm107nHFxo7whGFCbNdQ3 dSXvZICvvHFoG674VVLpWMa um7ete7PoWENfhLGxg0U3EA IThtciuGu1bFwtE45ae4H2J jzfI9doTHUgYJNuC8HbWD1x LHNdCud4EYA6CUZ1DUKzPIO pQ6QnGK4oHFCioAEwHQp0z0 wyrOsbCRYzKWE9g7teKCfmw pRnLG9aon4hvVs6h2gkebUx SXAmIRWiiDEOLJDvU3LrnYa kXu4nrCp2zHlsFpnhDBL6Pk p9OT7itp41seq2eHsfZRCka yvyJaK1GJqnALNivckdWWe5 MFxtYXJnbDcyMFxtYXJncjc yMFxtYXJndDcyMFxtYXJnYj rwIXsyUIVeBRE6QWnpx437Z WQ9DDqcl5qat7atgRCjAlf7 CGNrGvNvPuocIHwfw8Pdb6z iUWDpuj2fVZL3cZVauQeyz5 V2wVUgRREoeGTyowRzBEDbZ hB8CCleVS4xhj74XNVqVTY8 yz2luWAdmBdkhpSnzKAcWQi lD3LuALUib835BSNxK0VvAK Kkx3Q6jcVcCcYcEKBelFA6v kY3XQJnYMs4gKNsdhU3ujWb xZJdH2qddP89AzBiuBBpI3B oiY84IgJriSRyE8NbhB18In NpmXBrL7FuyY76QoDiiDKsO VSbwLCrPu7luBUesOFkk8Sz pWMeOJtyB27yl913XIJokzF oA0zzzLOvoisncUPnhcnfGU domjE9PIIsLSXrOSssCRAtQ GZzMjBcbGFuZzEwMzNcaGlj qFtrZXnpPgXkZAYrXFguX8l mDuAwOmAmVHX3UCXzLjkeHM gzMDVccGFyfQ== CLINICAL HISTORY (test t3ozoVZbHOKlpCSgCnQfRSS code = 3356) sFEHlq3wqDPCkbKNeWrPwGu NcZnRuYmpcdWMxXGRlZmYwe 7yud644eFBhf8fnHQNgIfQ4 bLEvKCHgrYIcY929MLQpNBl qv4tte9QaJUQliLTnk9A3JU AAugbirYb0eLvpQ91dc6Y5I niwC5zwDLGgAKUkQ2GgGQ9y QNYxAat8IUB1OKS5DDLqMJE rP6BmOK3oBWYqhOJcBDg4b9 ocnNylFNAvZLI4g4qwIMcnr cDbON8dfs5plWq3l2cvayUw QYIkOHOkiCSETUAbG7ZskBz aAk6hcOj9jQdiOyceLAJ8Ya c9YS6lfx70opx5aJguRDUca psmDqC2PFpvJZErjmojCHw1 MFxtYXJnbDcyMFxtYXJncjc yMFxtYXJndDcyMFxtYXJnYj nlUWoxEARvPDX2WJyob106K HC2ZDlrc5tiv9gzeBNxSyw8 XQFlStKzMzadRQkfv0Bug7a yJNDgyq8bTWV8iITiyGuvf2 G3bCGmVVIxzUOhznBaVTObS mJ4NAmzEM6meu68STAtJCE2 qc0idRSlnMvyivJgjVKpPJo jX1LwMOWhj097DRRmZ6CrAY Zrk5F5sbLfDmKlCJUeiCP0w pL9LNQrZDg2zZBfomO5mnBe mTOwX0oxsJ63HlPzbWRrE4K leA82LsQriXAxZ5IyuH47Uk UgfXYkX7DjqI72SnLgnCXeU AJynQBcEl6ieDSoiGVbg2Jn fUOiTObqT96nj385PAVfgtG jV4aguMYjssinrHBdqyleAS dkywQ3PXEpSLTuQJbsTAYaM GZzMjBcbGFuZzEwMzNcaGlj rCzxBVbrIwYkJMIlINjtN8t jOeFwPlYqVHLXCIE2cdteVF YxbdVbsyF7yD6yPABohl4= SPECIMEN SOURCE (test t3ogjXKoABTibFEvPjNmGRO code = 3377) iDZKra2mdPQFlvXJhTfMcTj NcZnRuYmpcdWMxXGRlZmYwe 0epo454tWPue2vvBLKcSaB7 nJDpTELxwBBbF611j8yah6m aevFysFM7YFZhFFQ2KFmgnl PppgW5BMiciYBnHmC9HGgvm jKgCUerqbWqeoVqUzz8TIXm O563SDD8mHjgz7qbLEV2UQL uVPOiOmSxDp6vrZQhQ976UB DrGDSPQHWeiZd9FZNduzWrl vBzsNZEu845N317l1xwAPVr uaUizPoDomvqc5jbX219YTT hcGVydzEyMjQwXHBhcGVyaD K3ENEwNF8zvssyAoFfPJ5uh iseKqLpJU4norc7JkHrHJ0r cmdiNzIwXGhlYWRlcnkwXGZ pq8YpqbhpFY5uA3Gri8U7lY 9maXRcZGVmdGFiNzIwXGZvc g4gcLDrXSvur2QpXKY8fhI5 lMEjiXHmTYIaTY41Vhflb2W tFnwfMZL1DOJwizDpz6Uqj7 hiEnRidmPwC0txV6SyYVNbQ GNgTFVbSqTgiyUyo8Drl8Hr nSBpcCw7z9emVZGvZZTxmMk fg4avWPE0GOOzD3G4gDLud4 xoPZhxKSHjwZD6tgnpJBzfI GKoauM9aqscJYeuEKAwyHA5 kbswRMskXARpXtE7kdtuVXk tSDMqPVX8JFpks685BTS2TU xzYmtwYWdlXHBnbmNvbnRcc GduZGVjXHBsYWluXHBsYWlu XGYwXGZzMjRccWxccGxhaW5 cYtQhAmCeXXzzFD6kODOrJ7 hagUOoVPZiVXFhR0ipXeAkl D0gkHloMEvbbyLiNMGlGVH0 k87mH0x9CZIqGU1vRD50mU9 ccGFyfQ== GROSS DESCRIPTION h9hyvOVbKFVdwMQlQzFvAIC (test code = 3366) dYFOvk0ydDBPfpYDgJaWoGl NcZnRuYmpcdWMxXGRlZmYwe 2lrd141lUAyx8hyDBBfIcR3 mOWrNIQpeBHzP775IJTlKJu oi9fek1HvQFQuzOShv8P4QM SRkfvyoAv0uNhsC35rf9D2O nizJ0zeXLLuHLviAPYkFWan pKBkPNR2CJAvKUY0KMlvihC espJ2NTjhrIKhNxN5ANm7c6 imzBrfKDNlMHS0t1gvCXmja eHnGU6xxq4ddMe4r7iziqMs UEGnFBGqvVQOMXRfW2YnxCm jAs1boBw8sTfpUdccVOG5Zi b7XJ3mus83lju5oWctGKEfh elaWuL8NJniMAYlbebcDCy6 MFxtYXJnbDcyMFxtYXJncjc yMFxtYXJndDcyMFxtYXJnYj htRLoeHBUeRNZ7JAzcj279Y NT0SNhhb0pns5sqlQArPkm7 XIZwFxEiQlxcJJxln5Njo2i uAEDgjh7aKOJ9gGEstBpin9 D7mJAxXGEwrBMmdnUxVYLdQ hI4PZqoXL1fia38MPTaMXH4 ee8otGThzVzvwlRzwAFfOAe dY2KhUTFah231HJOrY3NpZI Cgp2J8yuElUfRyLLWnoUD1i kT6DIDxRUc5mQYomgI0ypKv aIPeL8oraJ56RvNavQEbD5J hjN57MvWkqYGoU4VvgZ02Jb HmgFVcO6QntG55XlUqaPXkV NQnpXKmOf3ewZEntIKmc2Xs aSCmRDdlN36ky484ITZkboC xK3ztiBEuoqrceQByjzxrME xmczIwXHFsXHBsYWluXGYwX ULvTuYkjYfnpJ3rVgQaExSb BXEFLlMwiQqfzW1eUwZlMxR yMCBSZWNlaXZlZCBpbiBmb3 JtYWxpbiBsYWJlbGVkIHdpd GggdGhlIHBhdGllbnQncyBu ST4wBXLtJ5Mqj0Wpy99cmgC tYmVyIGFuZFxwbGFpblxmMF dkayKrTKIlp7EouZWttHRcj QKjGEDxCN3tSVvzNr88DZcx Ui12MKUwNIEvyxHvx06ul5O mb5HlhGZmwSA0gBDhDFKyn8 lbwjUrn6Q1bNQsHDQ2VT1nN SBlbmQsIHdoaWNoIGlzIGRl g0wxmuO4SFKmQKAaVqKay8J zoUXyApcdtUoaZSI5hcstj7 4sIGFuZCBhIGRvdWJsZSBzd Ed3M6fpDZHvrFbgGROyBRMj wxIwc9I4PXFgi2PxqOHnWl4 fZCFti79jUPOaFFMwnH5rYZ OgDPXhteVlgD8uONMvJWGrW QFnQMJtjXHiTzTqmNIvV0uh KLRkNLNaJ3ChuVCqQlLsVOF vDLNqJXFoSBKbt5JuqOWscQ FuLXBpbmssIHByZWRvbWluY R62eJegp02qc4ZjZQJnIRXw hGCafXL2qwOcSKSsKYA6BGZ zIoQfvTM3hxQws562keXxJB UsLaPkaCLjoBW4wKNomN6rb ZZjgE9nQHdcnDlioWcscTOq kgFcSdTfA96wKtKxdEI7vEH gK9jei0KhmHYpef19rD4urQ UbOJWssP8eJUQwMYPlUtLiR 52lFxKjaIG1eOLwXIbifIEl TC9qtctgcn8pMQjsIKHeAWH weBIaDVfqIP5jGY2aTRL4hi YgSSInSGneLBI2QN5zsLgdw bppWKUylWE3h0XkDN49D90d BIA9tWN6OGMgn1QjZYklETW ySXEvyUhqJC15oRqgHavvpA RlbmVkIGZvbGRzLiBObyBka RKbrrH3OGWnOJZom56uWHNc ZSBpZGVudGlmaWVkLiBUaGU pr1QqxBOkTWIqaXGtgeH1xQ P0lyRwZbtbE25zcZjkM8erL WEhjlmiQVVtBO0sAZPiXKG4 IFxwYXIgUHJveGltYWwgLSB rdKUaAfNxsBAfPQVtg2GalC AtIGJsYWNrXHBhciBUcmFuc 211cmFsIGRlZmVjdCAtIGdy ZWVuXHBhclxwYXIgUmVwcmV aFK28DTHfpeWkt7WakBpirz SgYKWaOVD1Bp7koXMdLEFjj uVby3iwq3ssMiOnxMIjCVLr A6Qdj98xM83oEDpdNHNepnB DRLhxoNHueKanSCvsVG4wTS Usm4FwvWVlMHAooA2aXTPkU RXlB4T6HWIfwgYWHj1LWcco oEBbrnLrnLZkpCZvMPDsX6P qISMqduKGGXmseD0ctFKseS 9zDGvbpOsjtXDtCWY8WBMks cAklvimhqS3GAxbVAHergSB FRSsTK0zUCZlaVeqvG8tAuL mDyGnTAImmU3hkWQbg4HiHW BsYWluXGYwXGZzMjAgLCBia MYaL4KlNSkvQYGxXOEvSJZn bmUgXHBsYWluXGYxXGZzMjA hxXbhrJbrzk7hXCvlhUEdtr xmMFxmczIwXHBhclxwYXIgQ l3uVLQzZMpyOMBmKDJtNcAu KaSmQWb9IQKjcC1bNx9yyPK leB5pcRUnQMdeUPX4tNTdFM JzIZHjQZOqWB54I0MflmBoS BuiJFSaTCEbzO1nSI08yDIj ymVyprSgeBwlbZ9oPgZtCuL uXJZjXi1aTM56gX1qGVmwSI NtHgekFHO5DCBcEvlarZJhV eAvF78gwH6csJgcsnTaOyM9 XG8lwICxdR67DQefuUQhzkg nOUburbEjRNNnDdGlMnP6lV ueiWdczV0fCqEuVsShWXGqd 45smuR7wYQ6sEGdOVB0bJRx aGVkIGZpYnJvbWVtYnJhbm9 2kkZ8zMRlcTYoJEHlN7Usq5 4zqlxukjT3XTWjndXeUNYiP FjbzFczoeTeiLwusH8fWhLg MxFlVKWbgYZdi7QikRE5OTJ uJYtzRSDpKTGbZkAvRJG4lG BzdXJmYWNlLCBObyBkaXNjc gD5KLFjIBAcx03mGFRyTJRh ZGVudGlmaWVkLiBSZXByZXN roqVbwPf0IZArCLA9uH0vud DtlzLgq7SgpRm8lAMqTYwbI KSxOFD3HdIwOWGwNQzjNQUa XGZzMjAgUEEvcGxccGxhaW5 cZjBcZnMyMCAgXHBhcn0= MICROSCOPIC p5eieDYqYMZrvNMqBwHcMES DESCRIPTION (test code eUEZhf9ljZIIciVAbNeDdMa = 3371) NcZnRuYmpcdWMxXGRlZmYwe 8gpy628mTMih2qoXQJjXlX6 xNYuEYGinHFsZ074a9tnz6x bpxEynZN9EQWwLQF9TGsuwj RmutI9DEgcnHSyFrX1JFnqb uYxFQxhpoLnayAqMbz9FFGl S804BKS6dDqmn5zbSDF6LAC sGLYyFlKzCc5ahGYgV581AL DhNLSYSHSmkIv2HHGsqoBac bRbeTILx685F654i5ufZNFw eoPxgKgVxkbcx9eaL284DIL hcGVydzEyMjQwXHBhcGVyaD N5BWRnMS7uveedMcSeBI0au lfoDcByTW7vxat9PfLxMI5g cmdiNzIwXGhlYWRlcnkwXGZ dt7NdwealMC2bH0Zle5N3fO 9maXRcZGVmdGFiNzIwXGZvc s4seQDwMHlyo8ZpPLN0ekJ7 fGKkqDKfUWBgFC81Dejdu5P tIreaSOJ6IOWeekImq1Nvi9 nxWsYbosRgV9eiP4BhHDXxA UNjIHZzOmLwcmInk1Niq2Mv lRTsjKp9g9fwXIQpFGLzoIg jz2hqYZE2GPMnE7F1zXMtf1 alKNxqVXBjxJO8foylNGayR GSrzbD9dglrHWmvNLNycMA0 byhiHXewSQOhVoN4tjkbAIw nEXHiUSE8PKthj101KQE2RO xzYmtwYWdlXHBnbmNvbnRcc GduZGVjXHBsYWluXHBsYWlu XGYwXGZzMjRccWxccGxhaW5 aMcUsKhUeBMktJC2qXHJqE5 dmrXXeJROqMCJjK8eeQqLoy F8bvSiqZJozsbJyAFOhokRy jc9pJBnlWDE0 Gross assessment was [facility] performed at ([facility], code = 2777) Department of Pathology, [address] [place] [address], Technical component [facility] was performed at ([facility], code = 2778) Department of Pathology, [address] [place] [address], Professional component [facility] was performed at ([facility], code = 2779) Department of Pathology, [address] [place] [address], [facility] [id number] 14:02:00Surgical Pathology Report Case: [id number] Authorizing Provider: Dougie Montoya MD Collected: 12/25/2019 08:20 AM Ordering Location: [facility] Received: 12/25/2019 11:14 AM SERVICES Pathologist: Lois Metz MD Specimens: A) - Stomach, Double stitch = posterior perforation. Short stitch=Distal Margin B) -Omentum A. STOMACH, DISTAL GASTRECTOMY: - GASTRIC PERFORATION WITH ACUTE AND CHRONIC INFLAMMATION AND SEROSITIS. - PROXIMAL RESECTION MARGIN VIABLE WITH SEROSITIS - DISTAL RESECTION MARGIN VIABLE, NEGATIVE FOR INFLAMMATION. - NEGATIVE FOR MALIGNANCYB. OMENTUM, RESECTION: - ADIPOSE TISSUE WITH ACUTE AND CHRONICINFLAMMATION. Signing Pathologist Direct Phone Line: [phone] signed by Lois Metz MD on 12/27/2019 at 2:02 [id number], [id number] perforationA. Stomach; B. OmentumA. Received in formalin labeled with the patient's name, accession number and "stomach" is a 14.0 x 7.5 x 3.5 cm portion of stomach with a short suture at one end, which is designated as "distal" by the surgeon, lico double stitch designated as posterior perforation. The stomach contains up to 5.0 cm of attached perigastric fat. The serosa is wallace-pink, predominantly smooth and displays a 2.5 x 2.3 cm transmural defect at the posterior wall that is 2.5 cm from the closest proximal margin, and 2.5 cm from the distal margin. The specimen is opened to reveal a wallace-pink, edematous mucosa that displays predominantly flattened folds. No discrete lesions are identified. The wall measures up to 0.7 cm thick.Ink code: Proximal - blue; Distal - blackTransmural defect - greenRepresentative sections are submitted as follows: Section code: A1, proximal and distal margins en face;A2-A7, transmural defect A8, posterior wallA9, anterior wallA10, one lymph node, [id number], one lymph nodeB. Received in formalin labeled withthe patient's name, accession number and "omentum" is a 39.0 x 13.7 x 1.5 cm portion of wallace-yellow fibrofatty omentum with attached fibromembranous tissue. Sectioning reveals a tn-yellow fibrofatty cutsurface, No discrete lesions are identified. Check Out Clerk sections are submitted in B1-B4. PA/pl [facility], Department of Pathology, [address] [place] [address], [facility], [facility] of Pathology, [address] [place] [address], [facility], Department of Pathology, [address] [place] [address], IJPZ-COV2/RT-PCR ([facility])2019-12-27 12:48:00 Test Item Value Reference Range Interpretation Comments SARS-COV2/RT-PCR (test Negative Not Detected, Negative, code = 8364387) See external report for linked test SARS-COV-2 PERFORMING LAB [facility] BO (test code = 0456763) Negative result for this test determines that SARS-CoV-2 RNA was not present in the specimen above the Limit of Detection (LOD). However, Negative results do not preclude SARS-CoV-2 infection and should not be used as the sole basis for treatment or patient management decisions. Negative results mustbe combined with clinical observations, patient history, and epidemiological information. A false negative result may occur if a specimen is improperly collected, transported or handled. A false negative result should be considered if patient's recent exposures or clinical presentation indicate that COVID-19 (SARS-CoV-2) is likely and diagnostic tests for other causes of illness are negative. Re-testing should be considered in cases of suspected false negatives.The limit of detection for this assay is 800 copies/mL.This SARS CoV-2 test is a real-time RT-PCR test intended for the qualitative detection of nucleic acid from SARS-CoV-2 in a nasopharyngeal swab specimen collected from individuals susp ected of COVID-19 by their healthcare provider.This test has not been Food and Drug [...] is revoked under Section 564(g) of the Act.Fact Sheet for Healthcare Providers:https://www.[employer]/sites/default/files/product/documents/Fact_Shee g_YC_Cngjmaxid_Cvyv_FTAD-YmR-7.pdfFact Sheet for Healthcare Patients:https://www.[employer]/sites/default/files/product/ documents/Xwdp_Vcepi_Yygvxpvw_Yiua_VICG-FzX-2.pdfPerforming Laboratory:[facility], [place] [address]VYAMZWTADX LEVEL, [id number] 07:01:00 Test Item Value Reference Range Interpretation Comments VANCOMYCIN TROUGH (BEAKER) (test 7.1 ug/mL 10.0-20.0 L code = 522) [employer] Field Technician ID - PIAYA LBASIC METABOLIC [id number] 06:28:00 Test Item Value Reference Range Interpretation Comments SODIUM (BEAKER) 132 meq/L 136-145 L (test code = 381) POTASSIUM (BEAKER) 3.4 meq/L 3.5-5.1 L (test code = 379) CHLORIDE (BEAKER) 105 meq/L 98-107 (test code = 382) CO2 (BEAKER) (test 22 meq/L 22-29 code = 355) BLOOD UREA NITROGEN 13 mg/dL 7-21 (BEAKER) (test code = 354) CREATININE (BEAKER) 0.54 mg/dL 0.57-1.25 L (test code = 358) GLUCOSE RANDOM 63 mg/dL 70-105 L (BEAKER) (test code = 652) CALCIUM (BEAKER) 7.8 mg/dL 8.4-10.2 L (test code = 697) EGFR (BEAKER) (test 114 mL/min/1.73 ESTIM ATED GFR IS code = 1092) sq m NOT ACCURATE CREATININE CLEARANCE IN PREDICTING GLOMERULAR FILTRATION RATE . ESTIMATED GFR I S NOT APPLICABLE FOR DIALYSIS PATIEN TS. [employer] Field Technician ID - PIAYA [id number] 06:17:00 Test Item Value Reference Range Interpretation Comments PHOSPHORUS (BEAKER) (test code = 2.2 mg/dL 2.3-4.7 L 604) [employer] Field Technician ID - PIKERON [id number] 06:17:00 Test Item Value Reference Range Interpretation Comments MAGNESIUM (BEAKER) (test code = 1.8 mg/dL 1.6-2.6 627) [employer] Field Technician ID - PIAYA LHEPATIC FUNCTION [id number] 06:17:00 Test Item Value Reference Range Interpretation Comments TOTAL PROTEIN (BEAKER) (test code = 5.1 gm/dL 6.0-8.3 L 770) ALBUMIN (BEAKER) (test code = 1145) 2.4 g/dL 3.5-5.0 L BILIRUBIN TOTAL (BEAKER) (test code 0.3 mg/dL 0.2-1.2 = 377) BILIRUBIN DIRECT (BEAKER) (test 0.3 mg/dL 0.1-0.5 code = 706) ALKALINE PHOSPHATASE (BEAKER) (test 45 U/L 40-150 code = 346) AST (SGOT) (BEAKER) (test code = 41 U/L 5-34 H 353) ALT (SGPT) (BEAKER) (test code = 14 U/L 6-55 347) [employer] Field Technician ID - PIAYA LCBC W/PLT COUNT & AUTO [id number] 06:05:00 Test Item Value Reference Range Interpretation Comments WHITE BLOOD CELL COUNT (BEAKER) 10.0 K/ L 3.5-10.5 (test code = 775) RED BLOOD CELL COUNT (BEAKER) 3.09 M/ L 3.93-5.22 L (test code = 761) HEMOGLOBIN (BEAKER) (test code = 6.7 GM/DL 11.2-15.7 L 410) HEMATOCRIT (BEAKER) (test code = 22.0 % 34.1-44.9 L 411) MEAN CORPUSCULAR VOLUME (BEAKER) 71.2 fL 79.4-94.8 L (test code = 753) MEAN CORPUSCULAR HEMOGLOBIN 21.7 pg 25.6-32.2 L (BEAKER) (test code = 751) MEAN CORPUSCULAR HEMOGLOBIN CONC 30.5 GM/DL 32.2-35.5 L (BEAKER) (test code = 752) RED CELL DISTRIBUTION WIDTH 20.2 % 11.7-14.4 H (BEAKER) (test code = 412) PLATELET COUNT (BEAKER) (test 210 K/CU MM 150-450 code = 756) MEAN PLATELET VOLUME (BEAKER) 11.3 fL 9.4-12.3 (test code = 754) NUCLEATED RED BLOOD CELLS 0 /100 WBC 0-0 (BEAKER) (test code = 413) NEUTROPHILS RELATIVE PERCENT 82 % (BEAKER) (test code = 429) LYMPHOCYTES RELATIVE PERCENT 11 % (BEAKER) (test code = 430) MONOCYTES RELATIVE PERCENT 6 % (BEAKER) (test code = 431) EOSINOPHILS RELATIVE PERCENT 0 % (BEAKER) (test code = 432) BASOPHILS RELATIVE PERCENT 0 % (BEAKER) (test code = 437) NEUTROPHILS ABSOLUTE COUNT 8.14 K/ L 1.56-6.13 H (BEAKER) (test code = 670) LYMPHOCYTES ABSOLUTE COUNT 1.12 K/ L 1.18-3.74 L (BEAKER) (test code = 414) MONOCYTES ABSOLUTE COUNT (BEAKER) 0.64 K/ L 0.24-0.36 H (test code = 415) EOSINOPHILS ABSOLUTE COUNT 0.00 K/ L 0.04-0.36 L (BEAKER) (test code = 416) BASOPHILS ABSOLUTE COUNT (BEAKER) 0.00 K/ L 0.01-0.08 L (test code = 417) IMMATURE GRANULOCYTES-RELATIVE 1 % 0-1 PERCENT (BEAKER) (test code = 2801) POC-Glucose [id number] 11:06:00 Test Item Value Reference Range Interpretation Comments POC-Glucose Meter (test 72 mg/dL 70-110 : TE STED AT [facility] code = 1538) [address] [facility], [address]: [employer] Field Technician/Techni pollo ID = [id number] for TESSIE GRAYSON N Lab Interpretation (test Normal code = 59339-9) [facility] [id number] 11:06:00 Test Item Value Reference Range Interpretation Comments POC-GLUCOSE METER 72 mg/dL 70-110 : TESTED A T [facility] [address] (BEAKER) (test code = [facility], 1538) [address]: [employer] Field Technician/Techni pollo ID = [id number] for MAN DISLA BASIC METABOLIC [id number] 07:24:00 Test Item Value Reference Range Interpretation Comments SODIUM (BEAKER) 133 meq/L 136-145 L (test code = 381) POTASSIUM (BEAKER) 3.6 meq/L 3.5-5.1 (test code = 379) CHLORIDE (BEAKER) 106 meq/L 98-107 (test code = 382) CO2 (BEAKER) (test 23 meq/L 22-29 code = 355) BLOOD UREA NITROGEN 15 mg/dL 7-21 (BEAKER) (test code = 354) CREATININE (BEAKER) 0.61 mg/dL 0.57-1.25 (test code = 358) GLUCOSE RANDOM 76 mg/dL 70-105 (BEAKER) (test code = 652) CALCIUM (BEAKER) 7.9 mg/dL 8.4-10.2 L (test code = 697) EGFR (BEAKER) (test 99 mL/min/1.73 ESTIMA MIRACLE GFR IS code = 1092) sq m NOT ACCURATE CREATININE CLEARANCE IN PREDICTING GLOMERULAR FILTRATION RATE . ESTIMATED GFR I S NOT APPLICABLE FOR DIALYSIS PATIEN TS. [employer] Field Technician ID - [id number] 07:18:00 Test Item Value Reference Range Interpretation Comments PHOSPHORUS (BEAKER) (test code = 2.4 mg/dL 2.3-4.7 604) [employer] Field Technician ID - [id number] 07:18:00 Test Item Value Reference Range Interpretation Comments MAGNESIUM (BEAKER) (test code = 1.8 mg/dL 1.6-2.6 627) [employer] Field Technician ID - BSHEPATIC FUNCTION [id number] 07:18:00 Test Item Value Reference Range Interpretation Comments TOTAL PROTEIN (BEAKER) (test code = 5.0 gm/dL 6.0-8.3 L 770) ALBUMIN (BEAKER) (test code = 1145) 2.4 g/dL 3.5-5.0 L BILIRUBIN TOTAL (BEAKER) (test code 0.3 mg/dL 0.2-1.2 = 377) BILIRUBIN DIRECT (BEAKER) (test 0.2 mg/dL 0.1-0.5 code = 706) ALKALINE PHOSPHATASE (BEAKER) (test 41 U/L 40-150 code = 346) AST (SGOT) (BEAKER) (test code = 24 U/L 5-34 353) ALT (SGPT) (BEAKER) (test code = 11 U/L 6-55 347) [employer] Field Technician ID - BSCBC W/PLT COUNT & AUTO [id number] 06:08:00 Test Item Value Reference Range Interpretation Comments WHITE BLOOD CELL COUNT (BEAKER) 15.3 K/ L 3.5-10.5 H (test code = 775) RED BLOOD CELL COUNT (BEAKER) 3.13 M/ L 3.93-5.22 L (test code = 761) HEMOGLOBIN (BEAKER) (test code = 7.0 GM/DL 11.2-15.7 L 410) HEMATOCRIT (BEAKER) (test code = 22.2 % 34.1-44.9 L 411) MEAN CORPUSCULAR VOLUME (BEAKER) 70.9 fL 79.4-94.8 L (test code = 753) MEAN CORPUSCULAR HEMOGLOBIN 22.4 pg 25.6-32.2 L (BEAKER) (test code = 751) MEAN CORPUSCULAR HEMOGLOBIN CONC 31.5 GM/DL 32.2-35.5 L (BEAKER) (test code = 752) RED CELL DISTRIBUTION WIDTH 20.0 % 11.7-14.4 H (BEAKER) (test code = 412) PLATELET COUNT (BEAKER) (test 224 K/CU MM 150-450 code = 756) MEAN PLATELET VOLUME (BEAKER) 10.6 fL 9.4-12.3 (test code = 754) NUCLEATED RED BLOOD CELLS 0 /100 WBC 0-0 (BEAKER) (test code = 413) NEUTROPHILS RELATIVE PERCENT 84 % (BEAKER) (test code = 429) LYMPHOCYTES RELATIVE PERCENT 8 % (BEAKER) (test code = 430) MONOCYTES RELATIVE PERCENT 7 % (BEAKER) (test code = 431) EOSINOPHILS RELATIVE PERCENT 0 % (BEAKER) (test code = 432) BASOPHILS RELATIVE PERCENT 0 % (BEAKER) (test code = 437) NEUTROPHILS ABSOLUTE COUNT 12.89 K/ L 1.56-6.13 H (BEAKER) (test code = 670) LYMPHOCYTES ABSOLUTE COUNT 1.29 K/ L 1.18-3.74 (BEAKER) (test code = 414) MONOCYTES ABSOLUTE COUNT (BEAKER) 1.05 K/ L 0.24-0.36 H (test code = 415) EOSINOPHILS ABSOLUTE COUNT 0.00 K/ L 0.04-0.36 L (BEAKER) (test code = 416) BASOPHILS ABSOLUTE COUNT (BEAKER) 0.01 K/ L 0.01-0.08 (test code = 417) IMMATURE GRANULOCYTES-RELATIVE 1 % 0-1 PERCENT (BEAKER) (test code = 2801) SARS-COV2/RT-PCR ([facility])2019-12-25 18:47:00 Test Item Value Reference Range Interpretation Comments SARS-COV2/RT-PCR (test code Negative Not Detected, Negative, = 2733999) See external report for linked test SARS-COV-2 PERFORMING LAB [facility] (test code = 1806184) Negative results do not preclude SARS-CoV-2 infection and should not be used as the sole basis for patient management decisions. Negative results must be combined with clinical observations, patient history, and epidemiological information. A false negative result may occur if a specimen is improperly collected, transported or handled.The limit of detection for this assay is 250 copies/mL.This SARS CoV-2 test is a rapid, real-time RT-PCR test intended for the qualitative detection of nucleic acid from SARS-CoV-2 in a nasopharyngeal swab specimen collected from individuals suspected of COVID-19 by their healthcare provider.This test has not been Food and Drug Administration (FDA) cleared or approved and has been authorized by FDA under an Emergency Use Authorization (EUA). This EUA will be effective until the declaration that circumstances exist justifying the authorization of the emergency use of in vitro diagnostic tests for detection and/or diagnosis of COVID-19 is terminated under Section 564(b)(2) of the Act or the EUA is revoked under Section 564(g) of the Act.Fact Sheet for Healthcare Pro viders:https://www.[employer].com/Documents/Xpert%20Xpress%20SARS%20CoV-2/Fact%20Sh eets/302-3802%31YAOE-ZYQ-7%20HEALTHCARE%20PROVIDERS%20FACT%20SHEET.pdfFact Sheet for Healthcare Patients:https://www.[facility]/Documents/Xpert%20Xpress%20SARS%20CoV-2/Fact%20Sheets/3023801%20SARS-COV -2%20PATIENT%20FACT%20SHEET.pdfPerforming Laboratory:[facility] [place] [address], [place] [address]QBIVE [employer] [id number] 15:48:00 Test Item Value Reference Range Interpretation Comments SODIUM (BEAKER) 131 meq/L 136-145 L (test code = 381) POTASSIUM (BEAKER) 3.9 meq/L 3.5-5.1 (test code = 379) CHLORIDE (BEAKER) 105 meq/L 98-107 (test code = 382) CO2 (BEAKER) (test 23 meq/L 22-29 code = 355) BLOOD UREA NITROGEN 13 mg/dL 7-21 (BEAKER) (test code = 354) CREATININE (BEAKER) 0.61 mg/dL 0.57-1.25 (test code = 358) GLUCOSE RANDOM 100 mg/dL 70-105 (BEAKER) (test code = 652) CALCIUM (BEAKER) 8.5 mg/dL 8.4-10.2 (test code = 697) EGFR (BEAKER) (test 99 mL/min/1.73 ESTIMA MIRACLE GFR IS code = 1092) sq m NOT ACCURATE CREATININE CLEARANCE IN PREDICTING GLOMERULAR FILTRATION RATE . ESTIMATED GFR I S NOT APPLICABLE FOR DIALYSIS PATIEN TS. [employer] Field Technician ID - BSBASIC METABOLIC [id number] 15:00:00 Test Item Value Reference Range Interpretation Comments SODIUM (BEAKER) 130 meq/L 136-145 L (test code = 381) POTASSIUM (BEAKER) 3.8 meq/L 3.5-5.1 (test code = 379) CHLORIDE (BEAKER) 102 meq/L 98-107 (test code = 382) CO2 (BEAKER) (test 23 meq/L 22-29 code = 355) BLOOD UREA NITROGEN 13 mg/dL 7-21 (BEAKER) (test code = 354) CREATININE (BEAKER) 0.70 mg/dL 0.57-1.25 (test code = 358) GLUCOSE RANDOM 109 mg/dL 70-105 H (BEAKER) (test code = 652) CALCIUM (BEAKER) 8.6 mg/dL 8.4-10.2 (test code = 697) EGFR (BEAKER) (test 85 mL/min/1.73 ESTIMA MIRACLE GFR IS code = 1092) sq m NOT ACCURATE CREATININE CLEARANCE IN PREDICTING GLOMERULAR FILTRATION RATE . ESTIMATED GFR I S NOT APPLICABLE FOR DIALYSIS PATIEN TS. [employer] Field Technician ID - [id number] 15:00:00 Test Item Value Reference Range Interpretation Comments MAGNESIUM (BEAKER) (test code = 1.9 mg/dL 1.6-2.6 627) [employer] Field Technician ID - [id number] 14:59:00 Test Item Value Reference Range Interpretation Comments PHOSPHORUS (BEAKER) (test code = 4.1 mg/dL 2.3-4.7 604) [employer] Field Technician ID - BSECG 12 [id number] 13:25:22Interface, External Ris In - 12/25/2019 1:25 PM CDTVentricular Rate 70 BPMAtrial Rate 70 BPMP-R Interval 146 msQRS Duration 86 msQ-T Interval 438 msQTC Calculation(Bazett) 473 msP [place] 58 degreesR [place] 66 degreesT [place] 79 degreesNormal sinus rhythmWithin normal limitsNo previous ECGs availableConfirmed by MD Loza Roberto ([id number]) on 12/25/2019 1:25:20 [facility] 12:34:00 Test Item Value Reference Range Interpretation Comments MAGNESIUM (BEAKER) (test code = 1.9 mg/dL 1.6-2.6 627) [employer] Field Technician ID - LMBASIC METABOLIC [id number] 12:34:00 Test Item Value Reference Range Interpretation Comments SODIUM (BEAKER) 129 meq/L 136-145 L (test code = 381) POTASSIUM (BEAKER) 4.0 meq/L 3.5-5.1 (test code = 379) CHLORIDE (BEAKER) 102 meq/L 98-107 (test code = 382) CO2 (BEAKER) (test 22 meq/L 22-29 code = 355) BLOOD UREA NITROGEN 14 mg/dL 7-21 (BEAKER) (test code = 354) CREATININE (BEAKER) 0.71 mg/dL 0.57-1.25 (test code = 358) GLUCOSE RANDOM 108 mg/dL 70-105 H (BEAKER) (test code = 652) CALCIUM (BEAKER) 8.7 mg/dL 8.4-10.2 (test code = 697) EGFR (BEAKER) (test 83 mL/min/1.73 ESTIMA MIRACLE GFR IS code = 1092) sq m NOT ACCURATE CREATININE CLEARANCE IN PREDICTING GLOMERULAR FILTRATION RATE . ESTIMATED GFR I S NOT APPLICABLE FOR DIALYSIS PATIEN TS. [employer] Field Technician ID - [id number] 12:33:00 Test Item Value Reference Range Interpretation Comments PHOSPHORUS (BEAKER) (test code = 4.8 mg/dL 2.3-4.7 H 604) [employer] Field Technician ID - LMCBC (Hemogram only)2019-12-25 12:27:00 Test Item Value Reference Range Interpretation Comments WBC (test code = 6690-2) 16.8 3.5- 10.5 K/L H RBC (test code = 789-8) 3.96 3.93- 5.22 M/L MCHC (test code = 786-4) 30.0 32.2- 35.5 GM/DL L Hematocrit (test code = 28.7 % 34.1-44.9 L 4544-3) MCV (test code = 787-2) 72.5 fL 79.4-94.8 L MCH (test code = 785-6) 21.7 pg 25.6-32.2 L RDW (test code = 788-0) 19.8 % 11.7-14.4 H Platelets (test code = 233 150- 450 K/CU MM 777-3) MPV (test code = [place] 34996-9) to abnormal [place] telet population distribution. nRBC (test code = 413) 0 0- 0 /100 WBC Lab Interpretation (test Abnormal code = 08764-4) [facility] (HEMOGRAM ONLY)2019-12-25 12:27:00 Test Item Value Reference Range Interpretation Comments WHITE BLOOD CELL COUNT 16.8 K/ L 3.5-10.5 H (BEAKER) (test code = 775) RED BLOOD CELL COUNT 3.96 M/ L 3.93-5.22 (BEAKER) (test code = 761) HEMOGLOBIN (BEAKER) 8.6 GM/DL 11.2-15.7 L (test code = 410) HEMATOCRIT (BEAKER) 28.7 % 34.1-44.9 L (test code = 411) MEAN CORPUSCULAR 72.5 fL 79.4-94.8 L VOLUME (BEAKER) (test code = 753) MEAN CORPUSCULAR 21.7 pg 25.6-32.2 L HEMOGLOBIN (BEAKER) (test code = 751) MEAN CORPUSCULAR 30.0 GM/DL 32.2-35.5 L HEMOGLOBIN CONC (BEAKER) (test code = 752) RED CELL DISTRIBUTION 19.8 % 11.7-14.4 H WIDTH (BEAKER) (test code = 412) PLATELET COUNT 233 K/CU MM 150-450 (BEAKER) (test code = 756) MEAN PLATELET VOLUME Unable to report due (BEAKER) (test code = to abn ormal Platelet 754) population distribution. NUCLEATED RED BLOOD 0 /100 WBC 0-0 CELLS (BEAKER) (test code = 413) [id number] 11:53:00 Test Item Value Reference Range Interpretation Comments PHOSPHORUS (BEAKER) (test code = 2.9 mg/dL 2.3-4.7 604) [employer] Field Technician ID - LMHGB/HCT (H&H)-Stat [id number] 10:15:00 Test Item Value Reference Range Interpretation Comments Hemoglobin (test code = 786-4) 8.9 g/dL 12-15 L Hematocrit (test code = 4544-3) 26.0 % 36-45 L Lab Interpretation (test code = Abnormal 19785-9) [facility] [id number] 10:15:00 Test Item Value Reference Range Interpretation Comments Glucose (test code = 2345-7) 116 mg/dL 70-110 H Lab Interpretation (test code = Abnormal 04481-4) [facility] Na-Stat [id number] 10:15:00 Test Item Value Reference Range Interpretation Comments Sodium (test code = 2951-2) 129 meq/L 136-145 L Lab Interpretation (test code = Abnormal 17727-7) [facility] [id number] 10:15:00 Test Item Value Reference Range Interpretation Comments Potassium (test code = 2823-3) 3.2 meq/L 3.6-5.5 L Lab Interpretation (test code = Abnormal 54778-7) [facility] NA-STAT [id number] 10:15:00 Test Item Value Reference Range Interpretation Comments SODIUM (BEAKER) (test code = 381) 129 meq/L 136-145 L POTASSIUM-STAT [id number] 10:15:00 Test Item Value Reference Range Interpretation Comments POTASSIUM (BEAKER) (test code = 3.2 meq/L 3.6-5.5 L 379) GLUCOSE-STAT [id number] 10:15:00 Test Item Value Reference Range Interpretation Comments GLUCOSE RANDOM (BEAKER) (test code 116 mg/dL 70-110 H = 652) HGB/HCT (H&H) - STAT [id number] 10:15:00 Test Item Value Reference Range Interpretation Comments HEMOGLOBIN (BEAKER) (test code = 8.9 g/dL 12.0-15.0 L 410) HEMATOCRIT (BEAKER) (test code = 26.0 % 36.0-45.0 L 411) Blood gas, [id number] 10:13:00 Test Item Value Reference Range Interpretation Comments pH, Josias (test code = 2746-6) 7.29 7.32-7.42 L pCO2, Josias (test code = 755) 48 41- 51 mmHg pO2, Josias (test code = 2705-2) 69 25- 40 mmHg H O2 Sat, Josias (test code = 2711-0) 92.5 % 40-70 H HCO3, Josias (test code = 88877-2) 23 mmol/L 21-29 Base Excess, Josias (test code = -4.0 mmol/L -2-3 L 1927-3) Patient Temperature (test code = 36.2 C 8310-5) FIO2 (test code = 1819) 55 % Lab Interpretation (test code = Abnormal 28305-0) [facility], [id number] 10:13:00 Test Item Value Reference Range Interpretation Comments Calcium, Ion (test code = 1993-) 1.06 mmol/L 1.12-1.27 L pH, Blood (test code = 96245-5) 7.28 Lab Interpretation (test code = Abnormal 81638-4) [facility], [id number] 10:13:00 Test Item Value Reference Range Interpretation Comments CALCIUM IONIZED (BEAKER) (test 1.06 mmol/L 1.12-1.27 L code = 698) PH, BLOOD (BEAKER) (test code = 7.28 1810) BLOOD GAS, [id number] 10:13:00 Test Item Value Reference Range Interpretation Comments PH VENOUS (BEAKER) (test code = 7.29 7.32-7.42 L 701) PCO2 VENOUS (BEAKER) (test code = 48 mmHg 41-51 755) PO2 VENOUS (BEAKER) (test code = 69 mmHg 25-40 H 702) O2 SATURATION VENOUS (BEAKER) 92.5 % 40.0-70.0 H (test code = 703) HCO3 VENOUS (BEAKER) (test code = 23 mmol/L 21-29 705) BASE EXCESS VENOUS (BEAKER) (test -4.0 mmol/L -2.0-3.0 L code = 704) PATIENT TEMPERATURE (BEAKER) 36.2 C (test code = 1818) FIO2 (BEAKER) (test code = 1819) 55.0 % Manual [id number] 09:14:00 Test Item Value Reference Range Interpretation Comments % Neutros (test code = 79 % 2816) % Lymphs (test code = 12 % 2817) % Monos (test code = 2818) 2 % % Eos (test code = 2819) 1 % % Bands (test code = 2826) 6 % 0-10 # Neutros (test code = 17.70 K/ul 1.56-6.13 H 2830) # Lymphs (test code = 2.69 K/ul 1.18-3.74 2831) # Monos (test code = 2832) 0.45 K/uL 0.24-0.36 H # Eos (test code = 2834) 0.22 K/uL 0.04-0.36 # Bands (test code = 2840) 1.34 K/uL 0-0.8 H Total Counted (test code = 100 1351) WBC Morphology (test code Normal = 487) Platelet Morphology (test Normal code = 486) Polychromasia (test code = 1+ few 478) Hypochromia (test code = 1+ few 963) Anisocytosis (test code = 1+ few 961) Microcytes (test code = 1+ few 965) Poikilocytes (test code = 2+ moderate 966) Target Cells (test code = 2+ moderate 480) Ovalocytes (test code = 1+ few 477) Tear Drop Cells (test code 1+ few = 481) Myah Cells (test code = 1+ few 474) DIONI (test code = DIONI) [employer] Field Technician ID - [id number] diff Lab Interpretation (test Abnormal code = 10573-0) [facility](CELLAVISION MANUAL DIFF)2019-12-25 09:14:00 Test Item Value Reference Range Interpretation Comments NEUTROPHILS - REL 79 % (CELLAVISION)(BEAKER) (test code = 2816) LYMPHOCYTES - REL 12 % (CELLAVISION)(BEAKER) (test code = 2817) MONOCYTES - REL 2 % (CELLAVISION)(BEAKER) (test code = 2818) EOSINOPHILS - REL 1 % (CELLAVISION)(BEAKER) (test code = 2819) BANDS - REL (CELLAVISION)(BEAKER) 6 % 0-10 (test code = 2826) NEUTROPHILS - ABS 17.70 K/ul 1.56-6.13 H (CELLAVISION)(BEAKER) (test code = 2830) LYMPHOCYTES - ABS 2.69 K/ul 1.18-3.74 (CELLAVISION)(BEAKER) (test code = 2831) MONOCYTES - ABS 0.45 K/uL 0.24-0.36 H (CELLAVISION)(BEAKER) (test code = 2832) EOSINOPHILS - ABS 0.22 K/uL 0.04-0.36 (CELLAVISION)(BEAKER) (test code = 2834) BANDS - ABS (CELLAVISION)(BEAKER) 1.34 K/uL 0.00-0.80 H (test code = 2840) TOTAL COUNTED (BEAKER) (test code 100 = 1351) WBC MORPHOLOGY (BEAKER) (test Normal code = 487) PLT MORPHOLOGY (BEAKER) (test Normal code = 486) POLYCHROMATOPHILLIC RBCS(BEAKER) 1+ few (test code = 478) HYPOCHROMIA (BEAKER) (test code = 1+ few 963) ANISOCYTOSIS (BEAKER) (test code 1+ few = 961) MICROCYTES (BEAKER) (test code = 1+ few 965) POIKILOCYTES (BEAKER) (test code 2+ moderate = 966) TARGET CELLS (BEAKER) (test code 2+ moderate = 480) OVALOCYTES (BEAKER) (test code = 1+ few 477) TEAR DROP CELLS (BEAKER) (test 1+ few code = 481) MYAH CELLS (BEAKER) (test code = 1+ few 474) [employer] Field Technician ID - [id number] diffABORH, [id number] 07:41:00 Test Item Value Reference Range Interpretation Comments ABO Grouping (test code = 2588) O Rh Factor (test code = 2589) POS [facility] screen, [id number] 05:12:00 Test Item Value Reference Range Interpretation Comments ABO/RH AUTOMATED (BEAKER) (test O POSITIVE code = 2260) Ab Scrn (test code = 890-4) NEGATIVE [facility]2020-07-21 04:33:00 Test Item Value Reference Range Interpretation Comments MAGNESIUM (BEAKER) (test code = 1.9 mg/dL 1.6-2.6 627) [employer] Field Technician LAKISHA CATES WBASIC METABOLIC [id number] 04:33:00 Test Item Value Reference Range Interpretation Comments SODIUM (BEAKER) 129 meq/L 136-145 L (test code = 381) POTASSIUM (BEAKER) 3.0 meq/L 3.5-5.1 L (test code = 379) CHLORIDE (BEAKER) 97 meq/L 98-107 L (test code = 382) CO2 (BEAKER) (test 24 meq/L 22-29 code = 355) BLOOD UREA NITROGEN 13 mg/dL 7-21 (BEAKER) (test code = 354) CREATININE (BEAKER) 0.57 mg/dL 0.57-1.25 (test code = 358) GLUCOSE RANDOM 105 mg/dL 70-105 (BEAKER) (test code = 652) CALCIUM (BEAKER) 8.5 mg/dL 8.4-10.2 (test code = 697) EGFR (BEAKER) (test 107 mL/min/1.73 ESTIM ATED GFR IS code = 1092) sq m NOT ACCURATE CREATININE CLEARANCE IN PREDICTING GLOMERULAR FILTRATION RATE . ESTIMATED GFR I S NOT APPLICABLE FOR DIALYSIS PATIEN TS. [employer] Field Technician LAKISHA CATES WCBC W/PLT COUNT & AUTO [id number] 04:22:00 Test Item Value Reference Range Interpretation Comments WHITE BLOOD CELL COUNT (BEAKER) 21.5 K/ L 3.5-10.5 H (test code = 775) RED BLOOD CELL COUNT (BEAKER) 3.97 M/ L 3.93-5.22 (test code = 761) HEMOGLOBIN (BEAKER) (test code = 8.8 GM/DL 11.2-15.7 L 410) HEMATOCRIT (BEAKER) (test code = 27.8 % 34.1-44.9 L 411) MEAN CORPUSCULAR VOLUME (BEAKER) 70.0 fL 79.4-94.8 L (test code = 753) MEAN CORPUSCULAR HEMOGLOBIN 22.2 pg 25.6-32.2 L (BEAKER) (test code = 751) MEAN CORPUSCULAR HEMOGLOBIN CONC 31.7 GM/DL 32.2-35.5 L (BEAKER) (test code = 752) RED CELL DISTRIBUTION WIDTH 19.3 % 11.7-14.4 H (BEAKER) (test code = 412) PLATELET COUNT (BEAKER) (test 243 K/CU MM 150-450 code = 756) MEAN PLATELET VOLUME (BEAKER) 11.8 fL 9.4-12.3 (test code = 754) NUCLEATED RED BLOOD CELLS 0 /100 WBC 0-0 (BEAKER) (test code = 413) NEUTROPHILS RELATIVE PERCENT 89 % (BEAKER) (test code = 429) LYMPHOCYTES RELATIVE PERCENT 5 % (BEAKER) (test code = 430) MONOCYTES RELATIVE PERCENT 6 % (BEAKER) (test code = 431) EOSINOPHILS RELATIVE PERCENT 0 % (BEAKER) (test code = 432) BASOPHILS RELATIVE PERCENT 0 % (BEAKER) (test code = 437) NEUTROPHILS ABSOLUTE COUNT 19.08 K/ L 1.56-6.13 H (BEAKER) (test code = 670) LYMPHOCYTES ABSOLUTE COUNT 1.06 K/ L 1.18-3.74 L (BEAKER) (test code = 414) MONOCYTES ABSOLUTE COUNT (BEAKER) 1.23 K/ L 0.24-0.36 H (test code = 415) EOSINOPHILS ABSOLUTE COUNT 0.00 K/ L 0.04-0.36 L (BEAKER) (test code = 416) BASOPHILS ABSOLUTE COUNT (BEAKER) 0.02 K/ L 0.01-0.08 (test code = 417) IMMATURE GRANULOCYTES-RELATIVE 1 % 0-1 PERCENT (BEAKER) (test code = 2801) HEPATIC FUNCTION [id number] 02:51:00 Test Item Value Reference Range Interpretation Comments TOTAL PROTEIN (BEAKER) (test code = 6.8 gm/dL 6.0-8.3 770) ALBUMIN (BEAKER) (test code = 1145) 3.4 g/dL 3.5-5.0 L BILIRUBIN TOTAL (BEAKER) (test code 0.6 mg/dL 0.2-1.2 = 377) BILIRUBIN DIRECT (BEAKER) (test 0.4 mg/dL 0.1-0.5 code = 706) ALKALINE PHOSPHATASE (BEAKER) (test 51 U/L 40-150 code = 346) AST (SGOT) (BEAKER) (test code = 31 U/L 5-34 353) ALT (SGPT) (STEFF) (test code = 18 U/L 6-55 347) [employer] Field Technician ID - LOAN WSARS-COV2/RT-PCR ([facility])2019-12-25 01:01:00 Test Item Value Reference Range Interpretation Comments SARS-COV2/RT-PCR (test code Negative Not Detected, Negative, = 2485256) See external report for linked test SARS-COV-2 PERFORMING LAB [facility] (test code = 1719658) Negative results do not preclude SARS-CoV-2 infection and should not be used as the sole basis for patient management decisions. Negative results must be combined with clinical observations, patient history, and epidemiological information. A false negative result may occur if a specimen is improperly collected, transported or handled.The limit of detection for this assay is 250 copies/mL.This SARS CoV-2 test is a rapid, real-time RT-PCR test intended for the qualitative detection of nucleic acid from SARS-CoV-2 in a nasopharyngeal swab specimen collected from individuals suspected of COVID-19 by their healthcare provider.This test has not been Food and Drug Administration (FDA) cleared or approved and has been authorized by FDA under an Emergency Use Authorization (EUA). This EUA will be effective until the declaration that circumstances exist justifying the authorization of the emergency use of in vitro diagnostic tests for detection and/or diagnosis of COVID-19 is terminated under Section 564(b)(2) of the Act or the EUA is revoked under Section 564(g) of the Act.Fact Sheet for Healthcare Pro viders:https://www.[employer].com/Documents/Xpert%20Xpress%20SARS%20CoV-2/Fact%20Sh eets/924-9692%05OOMT-GDE-8%20HEALTHCARE%20PROVIDERS%20FACT%20SHEET.pdfFact Sheet for Healthcare Patients:https://www.[employer]/Documents/Xpert%20Xpress%20SARS%20CoV-2/Fact%20Sheets/302-3672%20SARS-COV -2%20PATIENT%20FACT%20SHEET.pdfPerforming Laboratory:[facility], [place] [address]Wmfgemez [id number] 00:40:00 Test Item Value Reference Range Interpretation Comments Troponin I (test code = 0.02 ng/mL 0-0.03 74625-9) DIONI (test code = DIONI) Troponin I (TnI) levels must be interpreted in the context of the presenting symptoms and the clinical findings. Elevated TnI levels indicate myocardial damage, but are not specific for ischemic heart disease. Elevated TnI levels are seen in patients with other cardiac conditions (including myocarditis and congestive heart failure), and slight TnI elevations occur in patients with other conditions, including sepsis, renal failure, acidosis, acute neurological disease, and persistent tachyarrhythmia.Opera tor ID - LOAN Fu Lab Interpretation (test Normal code = 69678-9) [facility] [id number] 00:40:00 Test Item Value Reference Range Interpretation Comments TROPONIN I (BEAKER) (test code = 0.02 ng/mL 0.00-0.03 397) Troponin I (TnI) levels must be interpreted in the context of the presenting symptoms and the clinical findings. Elevated TnI levels indicate myocardial damage, but are not specific for ischemic heart disease. Elevated TnI levels are seen in patients with other cardiac conditions (including myocarditis and congestive heart failure), and slight TnI elevations occur in patients with other conditions, including sepsis, renal failure, acidosis, acute neurological disease, and persistent tachyarrhythmia.[employer] Field Technician ID - LOAN WEBBAD, CHEST, 1 VIEW, NON [id number] 00:40:00Reason for exam:->Chest painShould this be performed at the bedside?->YesFINAL REPORT INDICATION: Chest pain COMPARISON: None TECHNIQUE: Single frontal view of the chest. IMPRESSION: Lungs and pleura: Clear lungs. No effusion.Heart and mediastinum: Normal heart size. Unremarkable mediastinal contours.Osseous structures: No acute abnormality.Other: Mildly displaced fracture of the posterior right eighth rib of indeterminate chronicity. Signed: Ralf Mauricio MDReport Verified Date/Time: 12/25/2019 00:40:46 XR chest 1 view portable / [id number] 00:40:00 Interface, External Ris In - 12/25/2019 12:42 AM CDTFINAL REPORT INDICATION: Chest pain COMPARISON: None TECHNIQUE: Single frontal view of the chest. IMPRESSION: Lungs and pleura: Clear lungs. No effusion.Heart and mediastinum: Normal heart size. Unremarkable mediastinal contours.Osseous structures: No acute abnormality.Other: Mildly displaced fracture of the posterior right eighth rib of indeterminate chronicity. Signed: Ralf Mauricio MDReport Verified Date/Time: 12/25/2019 00:40:46 [facility] [id number] 00:33:00 Test Item Value Reference Range Interpretation Comments PHOSPHORUS (BEAKER) (test code = 2.8 mg/dL 2.3-4.7 604) [employer] Field Technician ID - [id number] 00:33:00 Test Item Value Reference Range Interpretation Comments MAGNESIUM (BEAKER) (test code = 1.3 mg/dL 1.6-2.6 L 627) [employer] Field Technician ID - BSBASIC METABOLIC [id number] 00:33:00 Test Item Value Reference Range Interpretation Comments SODIUM (BEAKER) 126 meq/L 136-145 L (test code = 381) POTASSIUM (BEAKER) 3.2 meq/L 3.5-5.1 L (test code = 379) CHLORIDE (BEAKER) 96 meq/L 98-107 L (test code = 382) CO2 (BEAKER) (test 19 meq/L 22-29 L code = 355) BLOOD UREA NITROGEN 14 mg/dL 7-21 (BEAKER) (test code = 354) CREATININE (BEAKER) 0.68 mg/dL 0.57-1.25 (test code = 358) GLUCOSE RANDOM 101 mg/dL 70-105 (BEAKER) (test code = 652) CALCIUM (BEAKER) 8.7 mg/dL 8.4-10.2 (test code = 697) EGFR (BEAKER) (test 87 mL/min/1.73 ESTIMA MIRACLE GFR IS code = 1092) sq m NOT ACCURATE CREATININE CLEARANCE IN PREDICTING GLOMERULAR FILTRATION RATE . ESTIMATED GFR I S NOT APPLICABLE FOR DIALYSIS PATIEN TS. [employer] Field Technician ID - BSProthrombin time/[id number] 00:17:00 Test Item Value Reference Range Interpretation Comments Protime (test code = 16.5 11.9- 14.2 H 5902-2) seconds INR (test code = 1.4 <=5.9 6301-6) DIONI (test code = DIONI) Effective 11/01/2018: PT Reference Range ChangeNew: 11.9-14.2 Previous: 11.7-14.7 RECOMMENDED COUMADIN/WARFARIN INR THERAPY RANGESSTANDARD DOSE: 2.0-3.0 Includes: PROPHYLAXIS for venous thrombosis, systemic embolization; TREATMENT for venous thrombosis and/or pulmonary embolus.HIGH RISK: Target INR is 2.5-3.5 for patients wiht mechanical heart valves. Lab Interpretation Abnormal (test code = 74652-6) [facility]HROM[facility]/[id number] 00:17:00 Test Item Value Reference Range Interpretation Comments PROTIME (BEAKER) (test code = 16.5 seconds 11.9-14.2 H 759) INR (BEAKER) (test code = 370) 1.4 <=5.9 Effective 11/01/2018: PT Reference Range ChangeNew: 11.9-14.2 Previous: 11.7- 14.7RECOMMENDED COUMADIN/WARFARIN INR THERAPY RANGESSTANDARD DOSE: 2.0-3.0 Includes: PROPHYLAXIS for venous thrombosis, systemic embolization; TREATMENT for venous thrombosis and/or pulmonary embolus.HIGH RISK: Target INR is2.5-3.5 for patients wiht mechanical heart valves.CBC W/PLT COUNT & AUTO [id number] 00:11:00 Test Item Value Reference Range Interpretation Comments WHITE BLOOD CELL COUNT (BEAKER) 22.5 K/ L 3.5-10.5 H (test code = 775) RED BLOOD CELL COUNT (BEAKER) 4.45 M/ L 3.93-5.22 (test code = 761) HEMOGLOBIN (BEAKER) (test code = 10.0 GM/DL 11.2-15.7 L 410) HEMATOCRIT (BEAKER) (test code = 32.3 % 34.1-44.9 L 411) MEAN CORPUSCULAR VOLUME (BEAKER) 72.6 fL 79.4-94.8 L (test code = 753) MEAN CORPUSCULAR HEMOGLOBIN 22.5 pg 25.6-32.2 L (BEAKER) (test code = 751) MEAN CORPUSCULAR HEMOGLOBIN CONC 31.0 GM/DL 32.2-35.5 L (BEAKER) (test code = 752) RED CELL DISTRIBUTION WIDTH 19.9 % 11.7-14.4 H (BEAKER) (test code = 412) PLATELET COUNT (BEAKER) (test 302 K/CU MM 150-450 code = 756) MEAN PLATELET VOLUME (BEAKER) 11.2 fL 9.4-12.3 (test code = 754) NUCLEATED RED BLOOD CELLS 0 /100 WBC 0-0 (BEAKER) (test code = 413)
[2020-03-28 13:41] LABS: Absolute Lymphocytes (CBC) 1.6 K/uL (0.7-4.9); Basophils % 0.7 % (0-1.3); Hematocrit 31.6 % (36.0-45.0); Lymphocytes % 20.5 % (15.3-44.8); MPV 9.4 fL (7.6-11.3); RBC Red Blood Cell Count 4.37 M/uL (3.86-4.86)
[2020-03-28] MEDS ORDERED: NA CHLORIDE 0.9% 500 ML ONE ×2 (13:43→14:42)
[2020-03-28 13:44] LABS: Protime INR 1.1
[2020-03-28 14:06] LABS: ALT/SGPT 26 U/L (12-78); AST/SGOT 22 U/L (15-37); Albumin 3.8 g/dL (3.4-5.0); Alkaline Phosphatase 76 U/L (45-117); BUN Blood Urea Nitrogen 11 mg/dL (7-18); Bicarbonate 28 mmol/L (21-32); Bilirubin Direct 0.2 mg/dL (0-0.2); Bilirubin Total 0.6 mg/dL (0.2-1.0); Glucose Level 103 mg/dL (74-106); Lipase 285 U/L (73-393); Protein, Total 8.1 g/dL (6.4-8.2); Sodium Level 137 mmol/L (136-145)
--- NOTE | 2020-03-28 14:08 | RAD REPORT ---
EXAM DESCRIPTION: CT - Abdomen Pelvis W Contrast - 03/28/2020 1:49 pm CLINICAL HISTORY: ABD PAIN, prior cholecystectomy hysterectomy COMPARISON: No comparisons TECHNIQUE: Biphasic, helical CT imaging of the abdomen and pelvis was performed following 100 ml non -ionic IV contrast. No oral contrast given. All CT scans are performed using dose optimization technique as appropriate and may include automated exposure control or mA/KV adjustment according to patient size. FINDINGS: No suspicious findings in the lung bases. The liver, spleen, and pancreas show no suspicious findings. Cholecystectomy clips are present. No ab normal biliary tree dilatation. Symmetric renal function is seen with no hydronephrosis or suspicious renal mass. No pyelonephritis o r acute parenchymal process. Urinary bladder is fully contracted limiting assessment. No adrenal abno rmalities. History indicates hysterectomy. There is soft tissue present near the vaginal cuff that is probably thickened vaginal cuff tissues rather than atrophic uterus. This is dependent on history. N o ovarian mass identified. Numerous surgical clips are seen along the pelvic floor. 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 No gastric wall thickening or mass. Surgical staple li ne present along the stomach. No dilated small bowel loops. Sigmoid colon is tortuous. Estevez are mild ly thickened or edematous. The contracted state exaggerates bowel wall thickness. No obstruction. No free air, free fluid or inflammatory stranding. No hernia, mass or bulky lymphadenopathy. No suspicious bony findings. Very dense arterial tree calcifications are present. IMPRESSION: Estevez of the rectum and sigmoid colon are mildly thickened or edematous. Pattern sugges ts a mild colitis. Patient has very little diverticulosis. No colon mass, obstruction, free air or surgically emergent finding. Additional nonacute findings detailed in the body of the report.
[2020-03-28 14:12] LABS: Potassium 2.7 mmol/L (3.5-5.1)
[2020-03-28] MEDS ORDERED: POTASSIUM 25 MEQ EFFERV TAB ONE (14:42)
[2020-03-28] MEDS ORDERED: KCL 20 MEQ/100 mL IVPB 20 MEQ/100 ML BAG IV ONE (14:42)
--- NOTE | 2020-03-28 16:28 | RAD REPORT ---
EXAM DESCRIPTION: RAD - Chest Single View - 03/28/2020 4:14 pm CLINICAL HISTORY: SOB, abdominal pain COMPARISON: September 2019 TECHNIQUE: AP portable chest image was obtained 03/28/2020 4:14 pm . FINDINGS: Lungs are clear. Heart and vasculature are normal. No measurable pleural effusion and no p neumothorax. Old rib trauma noted on the right. Nipple shadow at the right base. Hilar regions unchan ged from comparison. No acute aortic findings suspected. IMPRESSION: No acute cardiopulmonary process. No significant change from comparison.
[2020-03-28 17:23] LABS: Hematocrit 31.1 % (36.0-45.0)
--- NOTE | 2020-03-28 17:55 | EDPHYS ---
Physician Documentation [facility] Name: Lakeisha Kumari Age: 65 yrs Sex: Female : 1955 Arrival Date: 03/28/2020 Time: 11:54 Bed 15 Private MD: ED Physician Wale Brady HPI: 03/28 14:00 This 65 yrs old Female presents to ER via EMS with complaints of Black/Tarry cp Stools. 14:00 The patient presents with abdominal pain that is diffuse. cp 14:00 Onset: The symptoms/episode began/occurred 3 day(s) ago. The symptoms do not radiate. cp Associated signs and symptoms: Pertinent positives: anorexia, diarrhea, black colored stools, Pertinent negatives: constipation, dysuria, fever, hematuria. The symptoms are described as waxing/waning. Historical: - Allergies: 11:58 No Known Allergies; ss - PMHx: 11:58 Alcoholism; Anxiety; Atrial Fib; Depression; Hepatitis; Hypertension; Cirrhosis; ss - PSHx: :58 Cholecystectomy; Hysterectomy; jaw sx; ss - Immunization history:: Adult Immunizations up to date. - Social history:: Smoking status: Patient reports the use of cigarette tobacco products, smokes one pack cigarettes per day. ROS: 14:05 Abdomen/GI: Positive for abdominal pain, black/tarry stool, Negative for vomiting, cp diarrhea, constipation. 14:05 Eyes: Negative for injury, pain, redness, and discharge. cp 14:05 Constitutional: Negative for body aches, chills, fever, poor PO intake. 14:05 ENT: Negative for ear pain, sore throat, difficulty swallowing, difficulty handling secretions. 14:05 Cardiovascular: Negative for chest pain, edema, palpitations. 14:05 Respiratory: Negative for cough, shortness of breath, wheezing. 14:05 Back: Negative for pain at rest, pain with movement. 14:05 Neuro: Negative for altered mental status, headache, numbness, syncope, weakness. cp 14:05 All other systems are negative. Exam: 14:10 Constitutional: The patient appears in no acute distress, alert, awake, cp non-diaphoretic, non-toxic, well developed, frail. 14:10 Head/Face: Normocephalic, atraumatic. cp 14:10 Eyes: Periorbital structures: appear normal, Conjunctiva: normal, no exudate, no injection, Sclera: no appreciated abnormality, Lids and lashes: appear normal, bilaterally. 14:10 ENT: External ear(s): are unremarkable, Nose: is normal, Mouth: Lips: moist, Oral mucosa: moist, Posterior pharynx: Airway: no evidence of obstruction, patent. 14:10 Chest/axilla: Inspection: normal, Palpation: is normal, no crepitus, no tenderness. 14:10 Cardiovascular: Rate: bradycardic, Rhythm: regular, Edema: is not appreciated, JVD: is not appreciated. 14:10 Respiratory: the patient does not display signs of respiratory distress, Respirations: normal, no use of accessory muscles, no retractions, labored breathing, is not present, Breath sounds: are clear throughout, no decreased breath sounds, no stridor, no wheezing. 14:10 Abdomen/GI: Inspection: scar(s), midline surgical scar, Bowel sounds: active, all quadrants, Palpation: soft, in all quadrants, mild abdominal tenderness, in all quadrants, rebound tenderness, is not appreciated, voluntary guarding, is not appreciated, involuntary guarding, is not appreciated, Rectal exam: Stool: brown, guaiac negative. 14:10 Back: CVA tenderness, is absent. 14:10 Neuro: Orientation: to person, place \T\ time. Mentation: is normal, Motor: moves all fours, strength is normal. 14:30 ECG was reviewed by the Attending Physician. 17:03 ECG was reviewed by the Attending Physician. Vital Signs: 11:55 BP 219 / 75; Pulse 62; Resp 18; Temp 98.4(TE); Pulse Ox 100% on R/A; Weight 48.08 kg; ss Height 5 ft. 4 in. (162.56 cm); 12:30 BP 178 / 87; Pulse 61; Resp 18 S; Pulse Ox 100% on R/A; ca1 13:32 BP 152 / 79; Pulse 56; Resp 17 S; Pulse Ox 100% on R/A; ca1 14:30 BP 160 / 80; Pulse 59; Resp 17 S; Pulse Ox 100% on R/A; ca1 15:33 BP 176 / 50; Pulse 61; Resp 18 S; Pulse Ox 100% on R/A; ca1 16:30 BP 145 / 67; Pulse 61; Resp 16 S; Pulse Ox 99% on R/A; ca1 17:18 BP 130 / 72; Pulse 56; Resp 18 S; Pulse Ox 100% on R/A; ca1 18:17 BP 160 / 78; Pulse 61; Resp 15 S; Pulse Ox 100% on R/A; ca1 11:55 Body Mass Index 18.19 (48.08 kg, 162.56 cm) ss MDM: 12:09 Patient medically screened. cp 13:00 Differential diagnosis: bowel obstruction, diverticulitis, gastritis, gastroesophageal cp reflux disease, GI Bleed, Peptic Ulcer Disease, Perf. Duodenal Ulcer, Perf. Gastric Ulcer, urinary tract infection. 17:53 Data reviewed: vital signs, nurses notes, lab test result(s), radiologic studies, CT cp scan. 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 ED course: VSS. H/H stable. Pain improved. Will discharge to home for continued monitoring. 03/28 12:15 Order name: Basic Metabolic Panel; Complete Time: 14:14 sv 03/28 14:14 Interpretation: Normal except: K 2.7. cp 03/28 12:15 Order name: CBC with Diff sv 03/28 14:07 Interpretation: Normal except: HGB 9.9; HCT 31.6; MCV 72.3; MCH 22.8; MCHC 31.5; RDW cp 20.8. 03/28 12:15 Order name: Hepatic Function; Complete Time: 14:14 sv 03/28 12:15 Order name: Lipase; Complete Time: 14:14 sv 03/28 12:43 Order name: LAB Add On sv 03/28 12:43 Order name: Type And Screen; Complete Time: 17:51 sv 03/28 12:50 Order name: PT-INR; Complete Time: 14:07 cp 03/28 12:50 Order name: Ptt, Activated; Complete Time: 14:07 cp 03/28 12:50 Order name: CT Abd/Pelvis - IV Contrast Only; Complete Time: 14:12 cp 03/28 12:50 Order name: Magnesium; Complete Time: 14:07 cp 03/28 14:37 Order name: CREATININE WHOLE BLOOD; Complete Time: 15:00 EDMS 03/28 16:25 Order name: ABO/RH no charge; Complete Time: 17:51 EDMS 03/28 16:25 Order name: Hematocrit; Complete Time: 17:51 cp 03/28 16:25 Order name: Hemoglobin; Complete Time: 17:51 cp 03/28 12:15 Order name: IV Saline Lock; Complete Time: 12:41 sv 03/28 12:15 Order name: Labs collected and sent; Complete Time: 12:41 sv 03/28 12:50 Order name: EKG; Complete Time: 12:51 cp 03/28 12:50 Order name: EKG - Nurse/Tech; Complete Time: 13:25 cp 03/28 15:54 Order name: XRAY Chest (1 view); Complete Time: 17:51 cp 03/28 16:56 Order name: EKG: repeat, hypokalemia; Complete Time: 16:57 cp 03/28 16:56 Order name: EKG - Nurse/Tech; Complete Time: 17:17 cp EC:30 Rate is 58 beats/min. Rhythm is regular. ME interval is normal. QRS interval is normal. cp QT interval is prolonged at 538 msec. T waves are Inverted in lead V2. Interpreted by me. Reviewed by me. 17:03 Rate is 53 beats/min. Rhythm is regular. ME interval is normal. QRS interval is normal. cp QT interval is normal. T waves are Inverted in leads aVL, V2. Interpreted by me. Reviewed by me. Administered Medications: 13:31 Drug: NS 0.9% 500 ml Route: IV; Rate: bolus; Site: right antecubital; ca1 14:30 Follow up: Response: No adverse reaction; IV Status: Completed infusion; IV Intake: ca1 200ml 14:29 Drug: Potassium Effervescent Tablet 50 mEq Route: PO; ca1 17:18 Follow up: Response: No adverse reaction; Marked relief of symptoms ca1 14:30 Drug: Potassium Chloride 20 mEq Route: IV; Rate: calculated rate; Site: right ca1 antecubital; 16:30 Follow up: Response: No adverse reaction; IV Status: Completed infusion; IV Intake: ca1 100ml Disposition: 03/28/20 17:54 Discharged to Home. Impression: Colitis, Hypokalemia, Anemia in other chronic diseases classified elsewhere. - Condition is Stable. - Discharge Instructions: Anemia, Nonspecific, Potassium Content of Foods, Hypokalemia, Colitis. - Prescriptions for Cipro 500 mg Oral Tablet - take 1 tablet by ORAL route every 12 hours for 7 days; 14 tablet. Metronidazole 500 mg Oral Tablet - take 1 tablet by ORAL route every 8 hours for 7 days; 21 tablet. Bentyl 20 mg Oral Tablet - take 1 tablet by ORAL route every 6 hours As needed; 30 tablet. Zofran 4 mg Oral Tablet - take 1 tablet by ORAL route every 12 hours As needed; 20 tablet. - Medication Reconciliation Form, Thank You Letter, Antibiotic Education, Prescription Opioid Use form. - Follow up: James Mar MD; When: 2 - 3 days; Reason: Recheck today's complaints. - Problem is new. - Symptoms have improved. Addendum: 03/30/2020 06:41 Co-signature as Attending Physician, Wale Brady MD I agree with the assessment and k dr plan of care. Signatures: Dispatcher [employer] EDCorrine Loving RN RN Wale Rose MD MD [facility] Suha Ha RN RN ss Devon Price PA PA cp Lisa Saba RN RN ca1 Corrections: (The following items were deleted from the chart) 03/28 18:19 13:09 [facility] [place]. ca1 18:21 17:54 03/28/2020 17:54 Discharged to Home. Impression: Colitis; Hypokalemia; Anemia in ca1 other chronic diseases classified elsewhere. Condition is Stable. Forms are Medication Reconciliation Form, Thank You Letter, Antibiotic Education, Prescription Opioid Use. Follow up: James Mar; When: 2 - 3 days; Reason: Recheck today's complaints. Problem is new. Symptoms have improved. cp
--- NOTE | 2020-03-28 17:55 | ER ---
Nurse's Notes [facility] Name: Lakeisha Kumari Age: 65 yrs Sex: Female : 1955 Arrival Date: 03/28/2020 Time: 11:54 Bed 15 Private MD: Diagnosis: Colitis;Hypokalemia;Anemia in other chronic diseases classified elsewhere Presentation: 03/28 11:55 Chief complaint: Patient states: Abd pain and black tarry stools that began a few days ss ago. Pt reports that her primary care doctor changed her BP medication yesterday which doesn't seem to be helping because her BP is 219/75. Coronavirus screen: Client denies travel out of the [place] in the last 14 days. Ebola Screen: Patient denies exposure to infectious person. Patient denies travel to an Ebola-affected area in the 21 days before illness onset. Initial Sepsis Screen: Does the patient meet any 2 criteria? No. Patient's initial sepsis screen is negative. Does the patient have a suspected source of infection? No. Patient's initial sepsis screen is negative. Risk Assessment: Do you want to hurt yourself or someone else? Patient reports no desire to harm self or others. Onset of symptoms is unknown. 11:55 Method Of Arrival: EMS: [facility] 11:55 Acuity: KVNG 2 ss Historical: - Allergies: 11:58 No Known Allergies; ss - PMHx: 11:58 Alcoholism; Anxiety; Atrial Fib; Depression; Hepatitis; Hypertension; Cirrhosis; ss - PSHx: 11:58 Cholecystectomy; Hysterectomy; jaw sx; ss - Immunization history:: Adult Immunizations up to date. - Social history:: Smoking status: Patient reports the use of cigarette tobacco products, smokes one pack cigarettes per day. Screenin:30 Abuse screen: Denies threats or abuse. Denies injuries from another. Nutritional ca1 screening: No deficits noted. Tuberculosis screening: No symptoms or risk factors identified. Fall Risk IV access (20 points). Assessment: 12:30 General: Appears in no apparent distress. comfortable, Behavior is calm, cooperative, ca1 appropriate for age. Pain: Complains of pain in abdomen Pain does not radiate. Pain currently is 7 out of 10 on a pain scale. Pain began a month ago. Neuro: Level of Consciousness is awake, alert, obeys commands, Oriented to person, place, time, situation. Cardiovascular: Heart tones S1 S2 present Capillary refill < 3 seconds Patient's skin is warm and dry. Respiratory: Airway is patent Respiratory effort is even, unlabored, Respiratory pattern is regular, symmetrical, Breath sounds are clear bilaterally. GI: Abdomen is flat, non-distended, Bowel sounds present X 4 quads. Abd is soft X 4 quads Abdomen is tender to palpation in right upper quadrant, left upper quadrant, right lower quadrant and left lower quadrant Reports bloody stool. : No signs and/or symptoms were reported regarding the genitourinary system. EENT: No signs and/or symptoms were reported regarding the EENT system. Derm: Skin is intact, is healthy with good turgor, Skin is pink, warm \T\ dry. Musculoskeletal: Circulation, motion, and sensation intact. Capillary refill < 3 seconds. 13:32 Reassessment: Patient appears in no apparent distress at this time. Patient and/or ca1 family updated on plan of care and expected duration. Pain level reassessed. Patient is alert, oriented x 3, equal unlabored respirations, skin warm/dry/pink. 14:30 Reassessment: Patient appears in no apparent distress at this time. Patient and/or ca1 family updated on plan of care and expected duration. Pain level reassessed. Patient is alert, oriented x 3, equal unlabored respirations, skin warm/dry/pink. 15:31 Reassessment: Patient appears in no apparent distress at this time. Patient and/or ca1 family updated on plan of care and expected duration. Pain level reassessed. Patient is alert, oriented x 3, equal unlabored respirations, skin warm/dry/pink. 16:30 Reassessment: Patient appears in no apparent distress at this time. Patient and/or ca1 family updated on plan of care and expected duration. Pain level reassessed. Patient is alert, oriented x 3, equal unlabored respirations, skin warm/dry/pink. 17:30 Reassessment: Patient appears in no apparent distress at this time. Patient is alert, ca1 oriented x 3, equal unlabored respirations, skin warm/dry/pink. 18:17 Reassessment: Patient appears in no apparent distress at this time. Patient is alert, ca1 oriented x 3, equal unlabored respirations, skin warm/dry/pink. Vital Signs: 11:55 BP 219 / 75; Pulse 62; Resp 18; Temp 98.4(TE); Pulse Ox 100% on R/A; Weight 48.08 kg; ss Height 5 ft. 4 in. (162.56 cm); 12:30 BP 178 / 87; Pulse 61; Resp 18 S; Pulse Ox 100% on R/A; ca1 13:32 BP 152 / 79; Pulse 56; Resp 17 S; Pulse Ox 100% on R/A; ca1 14:30 BP 160 / 80; Pulse 59; Resp 17 S; Pulse Ox 100% on R/A; ca1 15:33 BP 176 / 50; Pulse 61; Resp 18 S; Pulse Ox 100% on R/A; ca1 16:30 BP 145 / 67; Pulse 61; Resp 16 S; Pulse Ox 99% on R/A; ca1 17:18 BP 130 / 72; Pulse 56; Resp 18 S; Pulse Ox 100% on R/A; ca1 18:17 BP 160 / 78; Pulse 61; Resp 15 S; Pulse Ox 100% on R/A; ca1 11:55 Body Mass Index 18.19 (48.08 kg, 162.56 cm) ED Course: 11:54 Patient arrived in ED. ss 11:57 Triage completed. ss 11:58 Arm band placed on right wrist. ss 12:06 Devon Price PA is PHCP. cp 12:06 Wale Brady MD is Attending Physician. cp 12:13 Lisa Saba, ELEONORA is Primary Nurse. ca1 12:30 Patient has correct armband on for positive identification. Placed in gown. Bed in low ca1 position. Call light in reach. Side rails up X2. Pulse ox on. NIBP on. Warm blanket given. 12:30 Inserted saline lock: 22 gauge in right wrist, using aseptic technique. ,using aseptic sv technique. diffusics Blood collected. Flushed right with 2 ml normal saline. 12:41 Served as a ancillary specialist during rectal exam. sv 12:45 LAB Add On Sent. sv 13:19 Missed attempt(s): 22 gauge in left forearm. Bleeding controlled, band aid applied, ca1 catheter tip intact. 13:21 Lab(s) recollected, by me, sent to lab. Inserted saline lock: 20 gauge in right ca1 antecubital area, using aseptic technique. Blood collected. 13:49 CT Abd/Pelvis - IV Contrast Only In Process Unspecified. EDMS 16:14 XRAY Chest (1 view) In Process Unspecified. EDMS 17:53 James Mar MD is Referral Physician. cp 18:18 IV discontinued, intact, bleeding controlled, No redness/swelling at site. Pressure ca1 dressing applied. Administered Medications: 13:31 Drug: NS 0.9% 500 ml Route: IV; Rate: bolus; Site: right antecubital; ca1 14:30 Follow up: Response: No adverse reaction; IV Status: Completed infusion; IV Intake: ca1 200ml 14:29 Drug: Potassium Effervescent Tablet 50 mEq Route: PO; ca1 17:18 Follow up: Response: No adverse reaction; Marked relief of symptoms ca1 14:30 Drug: Potassium Chloride 20 mEq Route: IV; Rate: calculated rate; Site: right ca1 antecubital; 16:30 Follow up: Response: No adverse reaction; IV Status: Completed infusion; IV Intake: ca1 100ml Intake: 14:30 IV: 200ml; Total: 200ml. ca1 16:30 IV: 100ml; Total: 300ml. ca1 Outcome: 17:54 Discharge ordered by . cp 18:18 Discharged to home ambulatory, with family. ca1 18:18 Condition: stable 18:18 Discharge instructions given to patient, Instructed on discharge instructions, follow up and referral plans. medication usage, Demonstrated understanding of instructions, follow-up care, medications, Prescriptions given X 4. 18:21 Patient left the ED. ca1 Signatures: Dispatcher [employer] Corrine Andrea RN RN sv Smirch, Shelby, RN RN ss Page, Corey, PA PA cp Lisa Saba RN RN ca1
[2020-03-28 18:34] VITALS: TEMP 98.4
[2020-03-28 18:42] VITALS: O2SAT 100
[2020-03-28 18:43] VITALS: BP 160/78
[2020-03-28 18:53] LABS: Anisocytosis 1+; Blood Morphology Comment NOTED (NOT SEEN); Platelet Estimate ADEQ; White Blood Cell Scan OK (OK)
--- NOTE | 2020-03-29 09:32 | EKG ---
Test Date: 2020-03-28 Test Time: 17:03:48 Rubber Worker: DIANA MEASUREMENT RESULTS: Intervals: Rate: 53 WA: 142 QRSD: 76 QT: 494 QTc: 463 [place]: P: 67 WA: 142 QRS: 73 T: 82 INTERPRETIVE STATEMENTS: Sinus bradycardia Otherwise normal ECG Compared to ECG 03/28/2020 14:26:09 Atrial premature complex(es) no longer present ST (T wave) deviation no longer present Possible ischemia no longer present Prolonged QT interval no longer present Electronically Signed On 03-29-20 09:30:55 CDT by Coy Nava
--- NOTE | 2020-03-29 09:33 | EKG ---
Test Date: 2020-03-28 Test Time: 14:26:09 Embosser Operator: ROSHNI MEASUREMENT RESULTS: Intervals: Rate: 58 VA: 150 QRSD: 82 QT: 538 QTc: 528 [place]: P: 85 VA: 150 QRS: 71 T: 70 INTERPRETIVE STATEMENTS: Sinus bradycardia with premature atrial complexes ST & T wave abnormality, consider anterior ischemia Prolonged QT Abnormal ECG Compared to ECG 12/24/2019 16:08:31 ST (T wave) deviation now present Possible ischemia now present Prolonged QT interval now present Sinus tachycardia no longer present Aberrant conduction of supraventricular beat(s) no longer present Electronically Signed On 03-29-20 09:30:57 CDT by Coy Nava
== END 2020-03-28 18:21 | disposition home or self-care (01) ==
LOC: ER 11:47
DX: K52.9 Noninfective gastroenteritis and colitis, unspecified (principal); E87.6 Hypokalemia; D64.9 Anemia, unspecified; I10 Essential (primary) hypertension; F10.20 Alcohol dependence, uncomplicated; F17.210 Nicotine dependence, cigarettes, uncomplicated
CPT/HCPCS: 96365; 96361; 93005 ×2; 85025; 80048; 36415; 86900; 83735; 86850; 85610; 82565; 86901; 80076; 85730; 85018; 85014; 83690; 74177; 71045; 99284; 96366; Q9967; J3480; J7040 ×2

== ENCOUNTER 2020-08-29 13:03 | Emergency (ER) | payer OTHER ==
--- OUTSIDE RECORDS SUMMARY | 2020-08-29 13:09 | XMS REPORT | Continuity of Care Document ---
:1955 Author Organization [facility] t Address [address] [place] [address] Care Team Providers Name Role Phone Pcp MD Primary Care Physician Unavailable MEAGHAN IRENE Attending Clinician Unavailable Meaghan Irene MD Attending Clinician Tangela BURGOS Attending Clinician Juliano Castillo MD Attending Clinician [phone] Betzy Melo MD Attending Clinician [phone] Erik Rodas MD Attending Clinician Jenelle Veras MD Attending Clinician Jaswinder Rosas MD Attending Clinician Dev Montoya MD Attending Clinician TANGELA Admitting Clinician Unavailable Payers Payer Name Policy Type Policy Effective Date Expiration Date Sour ce Number [facility] [id number] [facility] - MEDICARE MGD 00:00:00 - [facility] HORIZON [id number] 2020-PresentMaps Contracted Problems Condition Condition Condition Status Onset Resolution Last Treating Co mments Source Name Details Category Date Date Treatment Clinician Date Other Other Disease Active [facility] - of liver of liver 00:00: Medica l 00 Center Hyponatrem Hyponatrem Disease Active [facility] ia 12[facility]24 [facility] - [facility]: Medical 00 Center Hypomagnes Hypomagnes Disease Active 2020-[address] emia emia 12-24 [facility] - 00:00: Medical 00 [place] Hypokalemi Hypokalemi Disease Active 2019-[address] a a 12-24 [facility] - 00:00: Medical 00 [place] Perforatio Perforatio Disease Active 2019-[address] n bowel n bowel 12-23 [facility] - 00:00: Medical 00 Center Allergies, Adverse Reactions, Alerts This patient has no known allergies or adverse reactions. Social History Social Habit Start Date Stop Date Quantity Comments Source History [facility] - Alcohol Binge Medical Kareem ter Sex Assigned At [facility] History of tobacco [facility] Tobacco use and 2019-12-27 2019-12-27 Never used [facility] - exposure 00:00:00 00:00:00 [facility] Alcohol intake 2019-12-27 2019-12-27 Current drinker Joanne garcia da - 00:00:00 00:00:00 of alcohol [facility] (finding) History [facility] 2019-12-25 2019-12-[address] [facility] - Alcohol Frequency 00:00:00 00:00:00 [facility] History [facility] 2019-12-25 2019-12-[address] [facility] - Alcohol Std Drinks 00:00:00 00:00:00 [facility] Alcohol Comment 2019-12-25 2019-12-25 quit a year ago [facility] - 00:00:00 00:00:00 [facility] Smoking Status Start Date Stop Date Source Current every day smoker 2019-12-27 00:00:00 [facility] Medications Ordered Filled Start Stop Current Ordering [...] Center per tablet for 30 days. ondansetron 2019- No 4mg Take 1 St (ZOFRAN) 4 01-02- tablet (4 [facility] es - MG tablet 00:00: 23:59 mg total) Me dical 00 :00 by mouth 3 Center (three) times daily as needed for Nausea for up to 7 days. HYDROcodone 2019- No 1{tbl} Take [address] -acetaminop 01-02 tablet by Dipika smith (NORCO 00:00: 23:59 mouth Medic al 5-325) 00 :00 every 12 Center 5-325 mg (twelve) per tablet hours as needed (severe abdominal pain) for up to 3 days. Max Daily Amount: 2 tablets Vital Signs Vital Name Observation Time Observation Value Comments Source Systolic blood 2020-01-03 11:01:00 144 mm[Hg] [facility] Diastolic blood 2020-01-03 11:01:00 66 mm[Hg] [facility] Heart rate 2020-01-03 11:01:00 58 /min [facility] Body temperature 2020-01-03 11:01:00 36.61 Ivonne [facility] Respiratory rate 2020-01-03 11:01:00 18 /min [facility] Oxygen saturation in 2020-01-03 11:01:00 100 /min [facility] Arterial blood by Medical Ce nter Pulse oximetry Body weight 2020-01-02 06:00:00 59.2 kg [facility] BMI 2020-01-02 06:00:00 22.40 kg/m2 [facility] Body height 2019-12-25 16:00:00 162.6 cm pt reported [facility] Procedures Procedure Date / Time Performed Performing Clinician Sour e RHYTHM STRIP - SCAN 2020-01-04 14:00:06 Provider, Default [facility] BASIC METABOLIC PANEL 2020-01-03 04:44:[address] [facility] - (7) [facility] MAGNESIUM 2020-01-03 04:44:00 Allencherriberlin [facility] CBC W/PLT COUNT & AUTO 2020-01-03 04:44:[address] [facility] - DIFFERENTIAL [facility] PHOSPHORUS 2020-01-03 04:44:00 [facility] & 2020-01-03 01:16:[address] [facility] BASIC METABOLIC PANEL 2020-01-02 03:48:[address] [facility] - (7) [facility] MAGNESIUM 2020-01-02 03:48:00 Allencherriberlin [facility] CBC W/PLT COUNT & AUTO 2020-01-02 03:48:00 Allencherriberlin [facility] - DIFFERENTIAL [facility] PHOSPHORUS 2020-01-02 03:48:00 [facility]OL[facility] PANEL 2020-01-01 04:26:[address] [facility] - (7) [facility] MAGNESIUM 2020-01-01 04:26:00 Allencherriberlin [facility] CBC W/PLT COUNT & AUTO 2020-01-01 04:26:[address] [facility] - DIFFERENTIAL [facility] PHOSPHORUS 2020-01-01 04:26:00 Gadicherwy, [facility] CBC W/PLT COUNT & AUTO 2019-12-31 05:51:00 Allencherriberlin [facility] DIFFERENTIAL [facility] BASIC METABOLIC PANEL 2019-12-31 05:21:[address] [facility] - (7) [facility] MAGNESIUM 2019-12-31 05:21:00 Allencherriberlin [facility] PHOSPHORUS 2019-12-31 05:21:00 [facility] H. PYLORI ANTIGEN, STOOL 2019-12-30 18:37:00 Dougie Montoyaw [facility] BASIC METABOLIC PANEL 2019-12-30 04:58:00 Mk Vizcaino [facility] - ([address] [place] [address] MAGNESIUM 2019-12-30 04:58:00 Charis [facility] CBC W/PLT COUNT & AUTO 2019-12-30 04:58:00 AllenloydariMk slade [facility] PHOSPHORUS 2019-12-30 04:58:00 Gadicherkristina [facility] VANCOMYCIN LEVEL, TROUGH 2019-12-30 04:58:00 Melvin Castillo [facility] TRANSFUSION SERVICE 2019-12-29 18:01:26 Provider, [facility] SCAN [facility] BASIC METABOLIC PANEL 2019-12-29 04:43:[address] [facility] () [facility] MAGNESIUM 2019-12-29 04:43:00 Allencherriberlin [facility] CBC W/PLT COUNT & AUTO 2019-12-29 04:43:00 Charis [facility] PHOSPHORUS 2019-12-29 04:43:00 Brandonerkristina [facility] PREPARE LEUKO-REDUCED 2019-12-28 23:54:00 Amalia Alston [facility] TRANSFUSION SERVICE 2019-12-28 18:01:25 Provider, Default [facility] BASIC METABOLIC PANEL 2019-12-28 04:31:[address] [facility] () [facility] MAGNESIUM 2019-12-28 04:31:00 Charis [facility] CBC W/PLT COUNT & AUTO 2019-12-28 04:31:00 Charis [facility] PHOSPHORUS 2019-12-28 04:31:00 Sherrie Campos [facility] HEPATIC FUNCTION PANEL 2019-12-28 04:31:00 Sayda Castillo [facility] TRANSFUSE LEUKO-REDUCED 2019-12-27 16:19:11 Amalia Alston [facility] - RED BLOOD CELLS [facility] SARS-COV2/RT-PCR ([facility] & 2019-12-27 06:10:00 Josh Gross [facility] BASIC METABOLIC PANEL 2019-12-27 05:08:00 Mk Vizcaino [facility] - (7) [facility] MAGNESIUM 2019-12-27 05:08:00 Mk Vizcaino [facility] CBC W/PLT COUNT & AUTO 2019-12-27 05:08:[address] [facility] DIFFERENTIAL [facility] PHOSPHORUS 2019-12-27 05:08:00 Sherrie Campos [facility] HEPATIC FUNCTION PANEL 2019-12-27 05:08:00 Sayda Castillo [facility] VANCOMYCIN LEVEL, TROUGH 2019-12-27 05:08:00 Latoya Raya [facility] TRANSFUSION SERVICE 2019-12-26 18:01:[address] [facility] REPORT - SCAN Scanning [facility] POCT-GLUCOSE METER 2019-12-26 10:55:00 Cami Melo [facility] BASIC METABOLIC PANEL 2019-12-26 05:24:00 Mk Vizcaino [facility] - (7) [facility] MAGNESIUM 2019-12-26 05:24:00 Mk Vizcaino [facility] CBC W/PLT COUNT & AUTO 2019-12-26 05:24:00 Mk Vizcaino [facility] PHOSPHORUS 2019-12-26 05:24:00 Sherrie Campos [facility] HEPATIC FUNCTION PANEL 2019-12-26 05:24:00 [facility] BASIC METABOLIC PANEL 2019-12-25 15:21:[address] [facility] (7) [facility] ECG 12-LEAD 2019-12-25 12:13:36 Juana Veras [facility] PHOSPHORUS 2019-12-25 11:58:[address] [facility] BASIC METABOLIC PANEL 2019-12-25 11:58:00 [facility] Lisa, [facility] (7) [facility] MAGNESIUM 2019-12-25 11:58:00 Haylee Lisa, [facility] BASIC METABOLIC PANEL 2019-12-25 11:57:00 [facility] [address] CBC (HEMOGRAM ONLY) 2019-12-25 11:57:00 [facility] [place] [facility] MAGNESIUM 2019-12-25 11:57:00 Sherrie Camops [facility] PHOSPHORUS 2019-12-25 11:57:00 Erik Gonzalez Sayda [facility] RRL CRITICAL LABS 2019-12-25 09:39:[address] [facility] (ABG,NA,K,H&H,GLUCOSE) Medical C enter CALCIUM, IONIZED 2019-12-25 09:39:07 Juana Veras [facility] SODIUM NA-STAT LAB 2019-12-25 09:39:07 Juana Veras [facility] POTASSIUM-STAT LAB 2019-12-25 09:39:07 Juana Veras [facility] GLUCOSE-STAT LAB 2019-12-25 09:39:07 Juana Veras [facility] HGB/HCT (H&H) - STAT LAB 2019-12-25 09:39:07 Juana Veras [facility] TISSUE EXAM 2019-12-25 08:20:00 Dougie Montoya [facility] SURGICALLY OBTAINED 2019-12-25 07:26:23 Dougie Montoya [facility] - CULTURE + GRAM STAIN Medical Kareem ter ANAEROBIC CULTURE 2019-12-25 07:26:23 Dougie Montoya [facility] FUNGUS CULTURE + SMEAR 2019-12-25 07:26:23 Dougie Montoya [facility] LAPAROTOMY,EXPLORATORY 2019-12-25 06:25:00 Dougie Montoya [facility] ABORH, MANUAL 2019-12-25 03:46:00 Vani Brand [facility] BASIC METABOLIC PANEL 2019-12-25 03:41:00 Mk Vizcaino [facility] - (7) [facility] MAGNESIUM 2019-12-25 03:41:00 Mk Vizcaino [facility] CBC W/PLT COUNT & AUTO 2019-12-25 03:41:00 Mk Vizcaino [facility] - DIFFERENTIAL [facility] PHOSPHORUS 2019-12-25 03:41:00 Andres, [facility] TYPE AND SCREEN, 2019-12-25 03:41:00 Andres, [facility] AUTOMATED [facility] XR CHEST 1 VIEW 2019-12-25 00:00:00 Andres, [facility] PORTABLE/BEDSIDE Medical [place] PHOSPHORUS 2019-12-24 23:51:00 Andres, [facility] TROPONIN I 2019-12-24 23:51:00 Andres, [facility] HEPATIC FUNCTION PANEL 2019-12-24 23:51:00 Andres, [facility] BASIC METABOLIC PANEL 2019-12-24 23:51:00 Andres, [facility] () [facility] MAGNESIUM 2019-12-24 23:51:00 Andres, [facility] CBC W/PLT COUNT & AUTO 2019-12-24 23:45:00 Mk Vizcaino [facility] - DIFFERENTIAL [facility] (CELLAVISION MANUAL 2019-12-24 23:45:00 Charis [facility] - DIFF) [facility] PROTHROMBIN TIME/INR 2019-12-24 23:45:[address] [facility] SARS-COV2/RT-PCR ([facility] & 2019-12-24 23:01:[address] [facility] REF LABS) [facility] SARS-COV2/RT-PCR ([facility] & 2019-12-24 16:09:[address] [facility] - REF LABS) [facility] Plan of Care Planned Activity Planned Date Details Comments Source Future Scheduled 2020-06-[address] [facility] - Test 00:00:00 WELLNESS (YEAR 2 or Medical Center FIRST YEAR if no IPPE) [code = MEDICARE ANNUAL WELLNESS (YEAR 2 or FIRST YEAR if no IPPE)] Future Scheduled 2020-06-[address] [facility] - Test 00:00:00 (12+) [code = Medical Center DEPRESSION SCREENING (12+)] Future Scheduled 2020-02-05 INFLUENZA VACCINE (#1) [facility] Test 00:00:00 [code = INFLUENZA Medical Ce nter VACCINE (#1)] Future Scheduled 2006 SHINGLES VACCINES ([address] [facility] - Test 00:00:00 of 2) [code = SHINGLES Medic al Center VACCINES (1 of 2)] Future Scheduled [address] [facility] - Test 00:00:00 (procedure) [code = Medical Center 36159989] Future Scheduled [address] [facility] - Test 00:00:00 malignant neoplasm of Medica l Center cervix (procedure) [code = 078625232] Future Scheduled 1975 DTAP/TDAP/TD VACCINES [facility] - Test 00:00:00 (1 - Tdap) [code = Medical C enter DTAP/TDAP/TD VACCINES (1 - Tdap)] Future Scheduled 1974 HEPATITIS C SCREENING [facility] - Test 00:00:00 [code = HEPATITIS C Medical Center SCREENING] Future Scheduled [address] [facility] - Test 00:00:00 0-64 YRS (1 of 1 - Medical C enter PPSV23) [code = PNEUMOCOCCAL VACCINE 0-64 YRS (1 of 1 - PPSV23)] Future Scheduled 1955 Screening for [facility]as es - Test 00:00:00 malignant neoplasm of [facility] breast (procedure) [code = 162369079] Future Scheduled 1955 [facility] 00:00:00 malignant neoplasm of [facility] colon (procedure) [code = 989106011] Results Test Description Test Time Test Comments Results Result Comments Source Fungus culture + smear 2020-01-21 17:29:00 Test Item Value Reference Range Interpretation Comme nts Result (test code = 6463-4) No fungus isolated in 28 days Fungus Smear (test code = 1406) No fungi seen [facility] + [id number] 17:29:00 Test Item Value Reference Range Interpretation Comments CULTURE (BEAKER) (test No fungus isolated in code = 1095) 28 days FUNGUS SMEAR (BEAKER) No fungi seen (test code = 1406) Anaerobic [id number] 18:10:00 Test Item Value Reference Range Interpretation Comments Result (test code = No anaerobes isolated 6463-4) [facility] [id number] 18:10:00 Test Item Value Reference Range Interpretation Comments CULTURE (BEAKER) (test No anaerobes isolated code = 1095) SARS-CoV2/RT-PCR (Asymptomatic ONLY)2020-01-03 11:25:00 Test Item Value Reference Range Interpretation Comments SARS-COV2/RT-PCR Negative Not Detected, (test code = Negative, See 54663-1) external report for linked test SARS-COV-2 [facility] BO PERFORMING LAB (test code = 42650-0) DIONI (test code = Negative result for [...] of the Act. Fact Sheet for Healthcare Providers:https://www.Mesmo.tv/sites/default/f disha/product/documents/F act_Sheet_HC_Providers_L orr_IYWX-YdF-6.pdf Fact Sheet for Healthcare Patients:https://www.[employer]sites/default/fi les/product/documents/Fa ct_Sheet_Patients_Lyra_S ARS-CoV-2.pdf Performing Laboratory:[facility], [place] [id number] [place], [place] [address]ARS-COV2/RT-PCR ([facility] & REF LABS)2020-01-03 11:25:00 Test Item Value Reference Range Interpretation Comments SARS-COV2/RT-PCR (test Negative Not Detected, Negative, code = 5143742) See external report for linked test SARS-COV-2 PERFORMING LAB [facility] BO (test code = 3752785) Negative result for this test determines that [...] 564(g) of the Act.Fact Sheet for Healthcare Providers:https://www.[employer]/sites/default/files/product/documents/Fact_Shee h_GJ_Hyhzflpnt_Tilt_FBXO-PkQ-9.pdfFact Sheet for Healthcare Patients:https://www.[employer]/sites/default/files/product/ documents/Iqxk_Xylnb_Qqbifqrx_Cgol_UESQ-PlK-5.pdfPerforming Laboratory:[facility], [place] [address]Nwwve metabolic panel 2020-01-03 05:46:00 Test Item Value Reference Range Interpretation Comments Sodium (test code = 139 meq/L 009-847 3263-2) Potassium (test code = 4.0 meq/L 3.5-5.1 2823-3) Chloride (test code = 110 meq/L 98-107 H 2074-0) CO2 (test code = 29 meq/L 22-29 2027-9) BUN (test code = 6 mg/dL 7-21 L 3094-0) Creatinine (test code 0.52 mg/dL 0.57-1.25 L = 2160-0) Glucose (test code = 78 mg/dL 70-105 2345-7) Calcium (test code = 7.7 mg/dL 8.4-10.2 L 14725-0) EGFR (test code = 119 mL/min/1.73 [place] [address]-1) NOT ACCURATE CREATININE CLEARANCE IN PREDICTING GLOMERULAR FILTRATION RATE . ESTIMATED GFR I S NOT APPLICABLE FOR DIALYSIS PATIENTS. DIONI (test code = DIONI) [employer] Project Manager ID - EDASI Lab Interpretation Abnormal (test code = 14374-0) [facility] [id number] 05:46:00 Test Item Value Reference Range Interpretation Comments SODIUM (BEAKER) 139 meq/L 136-145 (test code = 381) POTASSIUM (BEAKER) 4.0 meq/L 3.5-5.1 (test code = 379) CHLORIDE (BEAKER) 110 meq/L 98-107 H (test code = 382) CO2 (BEAKER) (test 29 meq/L 22-29 code = 355) BLOOD UREA NITROGEN 6 [...] S NOT APPLICABLE FOR DIALYSIS PATIEN TS. [employer] Project Manager ID - [id number] 05:40:00 Test Item Value Reference Range Interpretation Comments Magnesium (test code = 1.7 mg/dL 1.6-2.6 75327-9) DIONI (test code = DIONI) [employer] Project Manager ID - EDASI Lab Interpretation (test Normal code = 40370-5) [facility] 05:40:00 Test Item Value Reference Range Interpretation Comments Phosphorus (test code = 3.4 mg/dL 2.3-4.7 2777-1) DIONI (test code = DIONI) [employer] Project Manager ID - EDASI Lab Interpretation (test Normal code = 10909-2) [facility]2020-07-30 05:40:00 Test Item Value Reference Range Interpretation Comments PHOSPHORUS (BEAKER) (test code = 3.4 mg/dL 2.3-4.7 604) [employer] Manager ID - [id number] 05:40:00 Test Item Value Reference Range Interpretation Comments MAGNESIUM (BEAKER) (test code = 1.7 mg/dL 1.6-2.6 627) [employer] Manager ID - EDASICBC with platelet count + automated [id number] 05:19:00 Test Item Value Reference Range Interpretation Comments WBC (test code = 6690-2) 6.5 See_Comment [A utomated message] The system [employer] generated this result transmitted ref erence range: 3.5 - 10 .5 K/L. The refe rence range was not u sed to interpret this result as normal/abnor mal. RBC (test code = 789-8) 3.13 See_Comment L [Au tomated message] The system [employer] generated this result transmitted ref erence range: 3.93 - 5 .22 M/L. The refe rence range was not u sed to interpret this result as normal/abnor mal. MCHC (test code = 786-4) 30.8 See_Comment L [A utomated message] The system [employer] generated this result transmitted ref erence range: 32.2 - 3 5.5 GM/DL. The refe rence range was not u sed to interpret this result as normal/abnor mal. Hematocrit (test code = 23.4 % 34.1-44.9 L 4544-3) MCV (test code = 787-2) 74.8 fL 79.4-94.8 L MCH (test code = 785-6) 23.0 pg 25.6-32.2 L RDW (test code = 788-0) 23.9 % 11.7-14.4 H Platelets (test code = 260 See_Comment [Aut omated message] 067-3) The system [employer] generated this result transmitted ref erence range: 150 - 45 0 K/CU MM. The referen ce range was not u sed to interpret this result as normal/abnor mal. MPV (test code = 10.4 fL 9.4-12.3 64185-7) nRBC (test code = 413) 0 See_Comment [Aut omated message] The system [employer] generated this result transmitted ref erence range: 0 - 0 /1 00 WBC. The refere nce range was not u sed to interpret this result as normal/abnor mal. % Neutros (test code = 52 % 429) % Lymphs (test code = 34 % 430) % Monos (test code = 11 % 431) % Eos (test code = 432) 2 % % Baso (test code = 437) 0 % # Neutros (test code = 3.39 See_Comment [Aut omated message] 670) The system [employer] generated this result transmitted ref erence range: 1.56 - 6 .13 K/L. The refe rence range was not u sed to interpret this result as normal/abnor mal. # Lymphs (test code = 2.17 See_Comment [Auto mated message] 414) The system [employer] generated this result transmitted ref erence range: 1.18 - 3 .74 K/L. The refe rence range was not u sed to interpret this result as normal/abnor mal. # Monos (test code = 0.72 See_Comment H [Autom ated message] 415) The system [employer] generated this result transmitted ref erence range: 0.24 - 0 .36 K/L. The refe rence range was not u sed to interpret this result as normal/abnor mal. # Eos (test code = 416) 0.12 See_Comment [Au tomated message] The system [employer] generated this result transmitted ref erence range: 0.04 - 0 .36 K/L. The refe rence range was not u sed to interpret this result as normal/abnor mal. # Baso (test code = 417) 0.02 See_Comment [A utomated message] The system [employer] generated this result transmitted ref erence range: 0.01 - 0 .08 K/L. The refe rence range was not u sed to interpret this result as normal/abnor mal. Immature 1 % 0-1 Granulocytes-Relative (test code = 2801) Lab Interpretation (test Abnormal code = 67768-8) [facility] W/PLT COUNT & AUTO [id number] 05:19:00 Test Item Value Reference Range Interpretation [...] (test code = 2801) H. pylori antigen, [id number] 21:44:00 Test Item Value Reference Range Interpretation Comments H. pylori Not detected Not detected Antimicrobial s, proton Antigen (test pump inhibitor s, and code = bismuth 5153408) preparationsinh ibit H. pylori and osman stion up to two weeks pr ior to testing may cau se false negative result s. If clinically brittany cated the test should be repeated on a new specim en obtained two we eks after discontinuing t reatment. DIONI (test Performing Lab code = DIONI) *SPL [facility], [address] [place] [id number] Lisandor Brower MD, PhD [facility]OLIC [id number] 05:31:00 Test Item Value Reference Range Interpretation [...] S NOT APPLICABLE FOR DIALYSIS PATIEN TS. [employer] Project Manager ID - EDASICBC W/PLT COUNT & AUTO [id number] 05:24:00 Test Item Value Reference Range Interpretation [...] 0-1 PERCENT (BEAKER) (test code = 2801) [id number] 05:03:00 Test Item Value Reference Range Interpretation Comments PHOSPHORUS (BEAKER) (test code = 3.6 mg/dL 2.3-4.7 604) [employer] Project Manager ID - [id number] 05:03:00 Test Item Value Reference Range Interpretation Comments MAGNESIUM (BEAKER) (test code = 1.6 mg/dL 1.6-2.6 627) [employer] Project Manager ID - EDASICBC W/PLT COUNT & AUTO [id number] 05:56:00 Test Item Value Reference Range Interpretation [...] H PERCENT (BEAKER) (test code = 2801) [id number] 05:09:00 Test Item Value Reference Range Interpretation Comments PHOSPHORUS (BEAKER) (test code = 3.8 mg/dL 2.3-4.7 604) [employer] Manager ID - [id number] 05:09:00 Test Item Value Reference Range Interpretation Comments MAGNESIUM (BEAKER) (test code = 1.6 mg/dL 1.6-2.6 627) [employer] Manager ID - EDASIBASIC METABOLIC [id number] 05:09:00 Test Item Value Reference Range Interpretation [...] S NOT APPLICABLE FOR DIALYSIS PATIEN TS. [employer] Manager ID - EDASIBASIC METABOLIC [id number] 06:51:00 Test Item Value Reference Range Interpretation [...] S NOT APPLICABLE FOR DIALYSIS PATIEN TS. [employer] Manager ID - [id number] 06:45:00 Test Item Value Reference Range Interpretation Comments MAGNESIUM (BEAKER) 1.6 mg/dL 1.6-2.6 Specimen slightly (test code = 627) hemolyzed [employer] Manager ID - [id number] 06:45:00 Test Item Value Reference Range Interpretation Comments PHOSPHORUS (BEAKER) 3.5 mg/dL 2.3-4.7 Specimen slightly (test code = 604) hemolyzed [employer] Manager ID - DBCBC W/PLT COUNT & AUTO [id number] 06:29:00 Test Item Value Reference Range Interpretation [...] (BEAKER) (test code = 2801) BASIC METABOLIC [id number] 05:57:00 Test Item Value Reference Range Interpretation [...] S NOT APPLICABLE FOR DIALYSIS PATIEN TS. [employer] Manager ID - [id number] 05:49:00 Test Item Value Reference Range Interpretation Comments PHOSPHORUS (BEAKER) (test code = 3.1 mg/dL 2.3-4.7 604) [employer] Manager ID - [id number] 05:49:00 Test Item Value Reference Range Interpretation Comments MAGNESIUM (BEAKER) (test code = 1.6 mg/dL 1.6-2.6 627) [employer] Manager ID - DBVancomycin level, [id number] 05:36:00 Test Item Value Reference Range Interpretation Comments Vancomycin Tr (test code = 10.9 ug/mL 10-20 4092-3) DIONI (test code = DIONI) [employer] Manager ID - DB Lab Interpretation (test Normal code = 14497-3) [facility] [id number] 05:36:00 Test Item Value Reference Range Interpretation Comments VANCOMYCIN TROUGH (BEAKER) (test 10.9 ug/mL 10.0-20.0 code = 522) [employer] Manager ID - DBCBC W/PLT COUNT & AUTO [id number] 05:29:00 Test Item Value Reference Range Interpretation [...] (BEAKER) (test code = 2801) BASIC METABOLIC [id number] 06:37:00 Test Item Value Reference Range Interpretation [...] S NOT APPLICABLE FOR DIALYSIS PATIEN TS. [employer] Manager ID - [id number] 06:18:00 Test Item Value Reference Range Interpretation Comments MAGNESIUM (BEAKER) 1.6 mg/dL 1.6-2.6 Specimen slightly (test code = 627) hemolyzed [employer] Manager ID - [id number] 06:18:00 Test Item Value Reference Range Interpretation Comments PHOSPHORUS (BEAKER) 2.7 mg/dL 2.3-4.7 Specimen slightly (test code = 604) hemolyzed [employer] Manager ID - EDASICBC W/PLT COUNT & AUTO [id number] 05:33:00 Test Item Value Reference Range Interpretation [...] (BEAKER) (test code = 2801) Prepare Leuko-Red [id number] 23:54:00 Test Item Value Reference Range Interpretation Comments CROSSMATCH (test code = 2264) COMPATIBLE Unit ABO (test code = O Pos 0745069) UNIT NUMBER (test code = [id number] 934-0) Status (test code = 3431732) TX_TIMEINCHART Blood Bank Product (test code RED BLOOD CELLS = 2263) PRODUCT CODE (test code = L5099O09 933-2) [facility] + gram [id number] 14:41:00 Test Item Value Reference Range Interpretation Comments Result (test code = 6463-4) No growth Gram Stain Result (test No organisms seen code = 1123) [facility] + GRAM [id number] 14:41:00 Test Item Value Reference Range Interpretation Comments CULTURE (BEAKER) (test code No growth = 1095) GRAM STAIN RESULT (BEAKER) 2+ WBCs (test code = 1123) GRAM STAIN RESULT (BEAKER) No organisms seen (test code = 79486) Hepatic function [id number] 05:41:00 Test Item Value Reference Range Interpretation Comments Protein, Total (test 5.6 See_Comment L [Autom ated code = 2885-2) message] The system which generated this result transmit miracle reference range : 6.0 - 8.3 gm/dL . The reference range was not u sed to interpret th is result as normal/abnormal . Albumin (test code = 2.6 g/dL 3.5-5 L 64267-7) Total Bilirubin (test 0.6 mg/dL 0.2-1.2 code = 1974-2) Bilirubin, Direct 0.5 mg/dL 0.1-0.5 (test code = 1968-7) Alkaline Phosphatase 51 U/L 40-150 (test code = 6768-6) AST (test code = 48 U/L 5-34 H 1920-8) ALT (test code = 19 U/L 6-55 1742-6) DIONI (test code = DIONI) [employer] Manager ID - EDASI Lab Interpretation Abnormal (test code = 39348-9) [facility] 05:[facility] Test Item Value Reference Range Interpretation Comments PHOSPHORUS (BEAKER) (test code = 2.6 mg/dL 2.3-4.7 604) [employer] Manager ID - [id number] 05:41:00 Test Item Value Reference Range Interpretation Comments MAGNESIUM (BEAKER) (test code = 1.7 mg/dL 1.6-2.6 627) [employer] Manager ID - EDASIBASIC METABOLIC [id number] 05:41:00 Test Item Value Reference Range Interpretation [...] S NOT APPLICABLE FOR DIALYSIS PATIEN TS. [employer] Manager ID - EDASIHEPATIC FUNCTION [id number] 05:41:00 Test Item Value Reference Range Interpretation [...] (test code = 19 U/L 6-55 347) [employer] Manager ID - EDASICBC W/PLT COUNT & AUTO [id number] 05:38:00 Test Item Value Reference Range Interpretation [...] PERCENT (BEAKER) (test code = 2801) Tissue [id number] 14:02:00 Test Item Value Reference Range Interpretation Comments Case Report (test code Surgical Pathology = 104) Report Case: [id number] Authorizing Provider: Dougie Montoya MD Collected: 12/25/2019 08:20 AM Ordering Location: [facility] Received: 12/25/2019 11:14 AM SERVICES Pathologist: Lois Metz MD Specimens: A) - Stomach, Double stitch = posterior perforation. Short stitch=Distal Margin B) - Omentum DIAGNOSIS (test code = h4rqsZXgUGBzp1jhCYMpxGQ 3220) uZzEwMzNcZnRuYmpcdWMxIH nydvHuWYigr6RqT8PwDmVjN FxhbnNpXGRlZmxhbmcxMDMz YSQ9xzYrEGKwYBodJIUlWUu vEl7jsXQylEciDgIsKPPjy1 qjccDWoqdslDe3z1dkVPSvW iQ5vECjWGjnB6ynsgAvdRSx FQYkFUp9dS32LRCvhI9lkOP qIWlfpkBmNcJ0IXcdDDYiTw C4PRSvmELdJUFvZ8ylCCNcT CrfQDQeMBbwsBFpEWG2dJmi x5W0sNRxwTVbyUkoYcMeHmE oWVHBl7VeRGl0dLmvX5ZnLX XtViT3lPNcKSZrLDvkJJIzP NCseiT1lE05SLgsqfX3fMKl p0Wdk84rp293xR2asLOsQMO 4NRQaBXJenBQpWXXlDGK7OV RkjWPpJ0g9XuOyqPYgC7U0Q hPmrRFpN9D0PvRhrGHaF4K8 HxIzaYDhAAYsvORiBc0vdXO kzFNjvm4vjr95SST3i0VklR doQFU9YZD9DwJeNh5lhJQhF SHlQP6aMnPyzHEiVPIdnk91 oGheZMbnvlQodK8oEbEsMSP kxJWhOSQpTE1quSJaHXQnjO 5ucmxjXHBnYnJkcmhlYWRcc FvxmsIqKv8wjHuvVKI8ICrd U6tsyH8wIsA3URfgI1adyH8 gHUr3PBxnrTE3ZAPhnL6eEV 6zaippc6nvAbXiJT6ksapar 0adGwZgEZ3otex5d8ymDgQi WK9efcrav8bzVcLzWSykMOU jfwhfGOHrq8OsnoedKRVgs1 FxQ0SnoUumO30eqZijL94aK KFfbVqaaF0wfDgydD1tXgNb ZnMyNFxxbFxwbGFpblxmMVx mczIwXGxhbmcxMDMzXGhpY2 yuLeOyUJEbrWpiNVyvm9MkK GYxXGZzMjBccGFyIEEuIFNU O83PO5dzEYBIK5IVGHYPEFA LHkSEID7HTFwauPYqIGVqCO AgLSBHQVNUUklDIFBFUkZPU zCLCX1TSNiRFBnmEFFWPOQc JP4IDPVNUo4NDASdIM0KZJS PJGUENC4WALJGOEKZWIHFB5 uNNGQaYBAhniTuGZAvKE7kR LMLQJgHCQqkAsZBBEHWOI8P TM1SOczVIpQWPTBKHNLzU5w AYJCZAABCP7aNUGUqoOHbMJ AgICAgLSBESVNUQUwgUkVTR QGYQM0QBS2BGhkMIiHSLDTC RIBqHP9FX9GJAZBDHYGAVfX EErVZEW4IFCNEM22eMLPkpr NdZHHbTW8dQjKZHPQWCzEyI h9PQU6VKHvNMgRXH0otwKZr XHBhciBCLiBPTUVOVFVNLCB JWBADG3WBG450VJJvzeUaZW GwUV3oLHBZIA0EWHMBAMXRS RKwN2mCZOYAH6HHMZYQEnKu R1lIK22ILaUTAvDPSN4TJMS BB66zSNjdHCW8d4zgjLObNP NzdGUxODAwMFxhbnNpXGRlZ ibilnceTWYtGJT2pjWjIQEp SRajQIUiEVxnCc6xdKUtjLs cGhQoVPQsy9jxliQGnvggtZ t0n9wbQSXdJcA2eMYuMDfhK 4nbnvMbyHBvVQDrKUy5gT77 QFSgzW4eaCImVXlnpaExJvX 8MBqcXWAkYqS4FLQekLGyVZ VwW7nqYZHbIYtcIVEhWUwsl MJrATA9rYrlc8I6yVUsfKVa mVltWyUaGhZbRhNUl6CqSDx 0mTthG3RqYCOvOjL5fIYpVL FwXMuhGBJxECXgbsX0pL38V NfpecP5eSWak2Ilc87wv364 uJ7rbZPfSNB7QCJdKQAfnYO fJVWqLXV0JLSxrGIfQ5foXM OfBB9zagrvWBhsUPrwMCNmm YT4JGEgwQXhZ8OmBCApBRyf NBAznon4QaHoKu4msJHmaLs qPNbpu0vsn6vvcKYmQsd7OW HfUaPcDllmRLaow4Qvj8qdM FKyju4gYWW7iCZfuSurv8P7 xOEePVYohSKbQSEgQN3xsMU wRKAorB5xoxttYEToUdMimp feIRUpmZtrghPlHh8rgXcjV VA8KMbuA2dulS3qQfY6KRcv J3scaQ1hQAm4UFnqDGJszYH 3rrU0XWBhyAGzW5QhtX5uVN TgDM5yebl0z4jzBKP5KZelN XAlAmM4snZ7RBLbhYPpUXIo kCjmWYpmn477HXV4WyQqDLV si2ZiT7RzqMnfT74lnKiiQ9 0jOALdgGiuxJ3caJkthP8fK tElQaDyONscqJuhJZ9xUZWr Y9yxyYGdDIOiYZQcE2yuCqO euM2xuLivQDhtyoWvYITcPy g0IUNbcZAiTWJiPwg2EQDzL HFhW25tjcnsPNT4wE0sx0ga y0SeRIegVIO9AKAty40lOVj ueaY1YKzpBn24ZPtmEBC4NN waHFV9dF== CPT Code(s) (test code k5vynVNmBVRnoPFkGlGpZUL = 3357) oXMVgx7mrICHstTWoKsWqSw NcZnRuYmpcdWMxXGRlZmYwe 8rtp301eXTff3dpQSXzBcI3 dIDzFXJxnZIsB636MRGcFEc hp0mkb2DyYAQeiIGls8N3BS SYyqpwmSk0uRicS04rt2B3X klfP0izMTHiQCIzJ7WtRW7n WUGhAjh7LFL6OBQ1GJFkQJE dK2KmIG7nXONwpRAbZAh8w2 jgjHtdWXDkZSK5e3bcDXxvt gNtHS9bdh0odGu3t7ozabZx MVDrWLPphGRFUPXqW3ZmlVt pAx4nzVv2iLgjCjabAVV1Uv v7XL0jle93xhw1lUpmGLUwh sbiCdC2PYjhTIKkymznNCl0 MFxtYXJnbDcyMFxtYXJncjc yMFxtYXJndDcyMFxtYXJnYj afANszANSsYEB5UYwqi595Q ID1FHyqk5yto0xzoHVnWax1 HKObLaYbFsuqSLcpk2Ywo3y iZXWiyh0qQIC0uAXazKmes7 Z6nGCvODZfzSKsiiXyNYCiL oG4THhgFG4akq34KGXiLBJ2 bq5mhRElxTmjxxEteJErHMo uI9MqIWFnp610HTHrN4NgWT Zvt2N1ozOsElDlICOxmCB8a hM0BKFyAEc1pKLbfyJ4nxPu nNOhI0uvaI92BxBvxHGoB1A vfN86UxDlaACgF9ByhF71Rc TnuXBlG3OavA36ClZlpPDtR FVeuIBwEp7mqTXsgDMuw6Zb fYNzSNqrW76wf871ACOgevF aW7mdtWKxdkfufUSeunoyRT dnybS5JXTiQOMsBTalIOQvZ GZzMjBcbGFuZzEwMzNcaGlj pGryPAxyNqClLIBySFnlF1m bHoTuHyYyLXS4VYVqHwmdHI gzMDVccGFyfQ== CLINICAL HISTORY (test y5qwbVLhFCYujOSlQqRzTGQ code = 3356) sNDEly9drJFLbaJPdCsBzVy NcZnRuYmpcdWMxXGRlZmYwe 3uyf815zLPqd3khISBuHoO5 wPOtTPPnnPHoK549PWVoLVl go8aaf8WjYPIdsQUxr4G5LW CUvjbuvBj3gVmrS51jp0R2P dhlL1zfJHMqBVNuL4NjAL1f CKMeIax9VBP4RXX5JGQhNAA xW4QsLK9qAEWhrEUsZJm3u8 tzwKblSZBcYHF6v6bkJHgld nTuQZ2sib3dwDe1p6lckxDj GSWkAUHtaOLFJGYqA9KfvGk jEj4jfEw0pVqvHeseLDI0Tj h9KR1nhg58aip1rQhqWUTew qijHbW8ZQwePQSsnsooBRz5 MFxtYXJnbDcyMFxtYXJncjc yMFxtYXJndDcyMFxtYXJnYj jmJEglRCEmKRI5GCxmx065M RY4PTixh0adm3tguWPsBiq3 RPYzVnWgVyfiDDzju9Ffv2z gSOBouy0dTQP2sYJfmDtzw4 G7mDMzBXUkeSSfeaPkKRWwM fP2EZevLH4zly88KWRbZXW8 xx4uhCCdbNegxqVhmLPmWNi mI6IdJQHix514DBJpP9FtAA Vjt3J9egGtByBdMQRocCL5c mY5JFEuCXf6pUIrfnF7mkOk mCPfM4ptpN77ZyFkwIFcX4M lyT64HkEfhKFvW6GnrN63Hf MheVLzD3HpvW98TzMfrCThD JIskXKxAs1cmJEnoTYsk4Qn sPTdOKszK10et790BCUdqsK nD1ufaJXqqzuvfOVzkuteHR dnrxP8DYDuKVSfBFcwTFXrW GZzMjBcbGFuZzEwMzNcaGlj nAjqPGkmMvOeAJVkABwdL5f uZcXxGoWkBLYPECB4nhgfZV FdlsZkybY7oI7wBSGsiv8= SPECIMEN SOURCE (test z4noeIPwCSMuhXXsOfYbVGV code = 3377) mGXWum8zyHLTnaKJlXmSzVj NcZnRuYmpcdWMxXGRlZmYwe 2glw947qBIkf4omSWDcCuY4 hRJuRKGerOUpG141g0spf2n etaLiuNQ3AJHwVXX1RInkpx RxhaX5EMufuOFcUaY7XGffw kNhLAkjbsEfnpZgGae3WCNe Y448BSL9gTofx7ewIPX0CUN uWSCzPePxGt0foHReS663FC HhDOOLGAHeoMi4BEVjbvNpc kWstTCEm330Q900k0irEUZn kiJptOoGpssgb7neD960RXC hcGVydzEyMjQwXHBhcGVyaD G4WQSfWY2ajakyTxFwGN4zv fqdTsNsES9hxnp5UvEnCK8a cmdiNzIwXGhlYWRlcnkwXGZ dk9PookimOW5aJ3Ifh2G7gB 9maXRcZGVmdGFiNzIwXGZvc j7puEEyWZsuf0RcYHB2onB8 oLCpjNFuEUMuWX37Hxvuv7K eFvscFBR9PJBnhhPcp4Czz5 beEgKbfzOxF2qzD7QsPVQkX DNmEHLkSiRojuNbx5Cqi1Uv iPGtdLf6j6acDWOfPSYlmQi ok3lcXWB4CYZsA6D9sALay6 krIYanJXSboRJ6jgwrPWtoH XSosuW5ussfRBifFVLuyEP1 cthjEQmjAMHqKfG2sgyoZFa xCJJaGKH0HYyjy452TJT0XU xzYmtwYWdlXHBnbmNvbnRcc GduZGVjXHBsYWluXHBsYWlu XGYwXGZzMjRccWxccGxhaW5 kNsItZsOpEBwtLZ9oUVKpP7 ffuTEoDOCsMGAiM2fnVbLhb F2vbJhjMPxeabHxCHKuXNY8 g82qS2a0JMFbBT2yFB66jO8 ccGFyfQ== GROSS DESCRIPTION f8dlxKHmRLHobYDtGyExWEX (test code = 3366) xWFRhg0oqVEYyzROlOgMcWb NcZnRuYmpcdWMxXGRlZmYwe 4wux822rOSzx7fjLYDoYzQ1 wAHmFBKwfIQvM929LTVkYVq my9njr1YyHJKauJJfl0B9SG TIvrydqQc0yNgzU37tu2Q8P dxxJ3vtIRGvFJfkKUZdIArq tKYwWXT3YVTiSFO5ZLveorQ cobX1LTihoGStJoG9LIq2d2 gyeOwvKBLcSKX2u6wjYAcjh lSxQF1avv8ucDg7f9lywyPs BGAvSXDqeHPEMEBuP5PkhLd xZt9voMo5gRlaJbwtCZE1Ng z4WU3iwx51kaf0zFefQZBgy bvcUzT4ELwcVHDbkwxfQRq7 MFxtYXJnbDcyMFxtYXJncjc yMFxtYXJndDcyMFxtYXJnYj jzTSgnWIWmALD4TLmep997V FH2DWtoz5bwt3ameOTdRsw5 TNTdTiPuXinmVGmew0Ixo1p zYTQpkx3bQLE6yODrpFjdm2 J9bVUpZITmkRUhmpEvXONbH bR9FXkeZH2tpo69XVBqPNH2 wv1hkTLcaIsicnEsfVWrSJw pJ1JmIEAdy090TNLoD8CmNG Fhf1F2whXnTcDhOVRkxPR4g aM6OUIkNFo1kCCuzhJ6boUj gAPcP2kumQ52HeXbfKQhI6I vtR35TnYmaQYvF9VcgD94Vu JemSPkT0EumX04AlTulPIaQ DZgmFZqFw1ciWUsvOZbv1Wh aPLiGZbyE36oq873OGRpxoR rL0inqKXhgfmpyEExnekvKR xmczIwXHFsXHBsYWluXGYwX XGwNpWgjVxmwP5qLfXgXoNo HPPQQtAqsOpftM5aMwDgFdI yMCBSZWNlaXZlZCBpbiBmb3 JtYWxpbiBsYWJlbGVkIHdpd GggdGhlIHBhdGllbnQncyBu MH8vBWBiK8Pkt9Bts69ngyM tYmVyIGFuZFxwbGFpblxmMF krspDkXWMax1VafKFbdKKwu MJaOAXaHY3nYAbyNv36ZHfy Pf75KYViMVSrftHvf59ux3Y qa6XnmLXiwYE2pLJbVLUjt1 ensmCrt7C7wIGcIVC5DJ8rZ SBlbmQsIHdoaWNoIGlzIGRl g3bmqnK8ABKqQAEoIrGyl9G lcKFsDbsoaCnsGNN7hlipx1 4sIGFuZCBhIGRvdWJsZSBzd Ed4U0wbFFTgnGtzKWNzELTs tpEkx9D2WLDlw5SgjNRcYn1 bXQLua44bWWIlLBHckX1rIH WrXVIvrhMekH8jLXMfOTQpQ MTkWGBepCPdHcCitMQfG7hz PZPsFFZnB4SwkLQyGiPbUFR qOOPyHKDeQAFsf9BmbVYfnJ FuLXBpbmssIHByZWRvbWluY K33fQlzo90ls4LxBUWcHJBb gKSfhQP9nfTxITWlUBQ7XMA bXvQhsBP2kdHcj091huWdCA MiWuMsxWPndVN4iYZqlI0mc HChrE2oFSztgFnqjNncwIIz ofYbSzMhR32dKaWqeVK3jQO hW7clk5AkyXPodv83dF2goZ LyZECybO3lYRAyRVDnSfAvF 65bAoGxzNO4eBNtVPtrtTJi GW9qrpzglh6oUCksHEDtFLZ ccSRtOMqmGV6uNR4tBGC0sb SmOOSbXTexVML1HS9ljEpbz eckSPZxjEQ4t7DxDB75Y29n PZU1fFZ9SYVvy6LdRIleJPG sHWBpeIdyJD00lXktGciqjE RlbmVkIGZvbGRzLiBObyBka VJfokS5TVEgJAHav07eREWu ZSBpZGVudGlmaWVkLiBUaGU bq7BaoFCyIHUfbJIdopI0uP M5fpAjIwlmR81tnQbtE7pwG RBtlbpdDWCkTW0yRTPvRNG9 IFxwYXIgUHJveGltYWwgLSB nsKJsWxMsiPJqZFCxq3XlpT AtIGJsYWNrXHBhciBUcmFuc 211cmFsIGRlZmVjdCAtIGdy ZWVuXHBhclxwYXIgUmVwcmV eIY53RWOlosUfg7NpcBelxw IuRIOdSUK8Fr8lbFLdBIDwn hPqs9rex6xhQdLwhQKiKJJl Z5Yxt03kD65nCYuaMUCahaX ZACsitMFavAeoSPcbTG2fDG Oed7IynUKcTDTgaM4uBRAnQ QNjT8U9ZMIpopOYTl1FJfyc gFJiklKnaKEqcWDgANVqQ2E nVKYwnvYPHFboyW2taVJcpH 5gGHpqnZaqtCTaIMA5NANqx rDmeqtparQ1OUisVEFxvdTW XIEpKG2yAVFfrAdttE8qUmO nEnXiXWPyhZ4nhIHvf9AiOO BsYWluXGYwXGZzMjAgLCBia ITaP5MwCPgsAQRaRRJyAPSi bmUgXHBsYWluXGYxXGZzMjA ceQohoOugbd5dLXvccEShau xmMFxmczIwXHBhclxwYXIgQ h2nHYJaPDyiKHJzECQdUpTg CcCpLNs4NJXcxE2dWf5wmRF vkD6dhXOeQCtxBMR3tUCcZR BnRFPcAMGoRN56I6NdqsKhG UphFCTzRELpyC9wUO19lAJd srVoeqUriQdtfF4sTzPjUmW kISCtEa6wEQ88gO5uBBwjNU BlRrfeJLZ1ZNRfWyhkdNJgC bUoW51yjJ1waZagjxWvIxI0 WB5ytCWzmQ00HYdotICajpp jOUaxisOnHFQwGmVaLzL2oM jbvAecgL2oDdObJjMtVGIhf 66ubvN0pHA5gPMyXSF1rJJd aGVkIGZpYnJvbWVtYnJhbm9 2dzD2yRSvhGDhLBKhM3Ewv6 8hjvsljdN4MLSehyUqJQKlE FekfRuafnLujJreiY8bDgMi PaLfFTRevGQcs5YeuIJ8KMW mZSawDODoBNHeQxLzWCH0sI BzdXJmYWNlLCBObyBkaXNjc cC3HBHnHGFfd19qVGXlKIJq ZGVudGlmaWVkLiBSZXByZXN dgfOxjAm4SKWlICA6kO1jba HaqlNhe2UqfIa9wQIrGYbkF CTyTYW8FyLsHXPmABtpFNHi XGZzMjAgUEEvcGxccGxhaW5 cZjBcZnMyMCAgXHBhcn0= MICROSCOPIC u5efrHAyCYWcpRCqVmGtJFY DESCRIPTION (test code rOKQuh7kuSASfoBHsXaGfFa = 3371) NcZnRuYmpcdWMxXGRlZmYwe 4psf765oVKft4hiXTXyPtE5 oHAyJOWfwIYwE615e5xsu7p lqgZkgST7QLMzFDW7RJwrvv WgpqI9BPurfKOkUgF7DHimt iXvSYdnscVnoxAqGog9TZVp H447IGX5mWkmr2gyFVL8FKG gSBIkAaVhTn6yaVJmL905HO TzEBJVWSQokOv0COReszEea bKouBSBw223W147f1rpGXKb qkYjsAkBppyqi5wvA989SGU hcGVydzEyMjQwXHBhcGVyaD K2ZFIcHA3sbfmpXwLoIW8vd pnjCbXjXV3ayzw2KlJhCA8h cmdiNzIwXGhlYWRlcnkwXGZ lc6SksbceCV7qM2Tbg4L0zM 9maXRcZGVmdGFiNzIwXGZvc b3foFKyJZxim3YzLZS3mjS6 oFIkqCEvCBXdXO19Kuici0A nZjerSOG6CPKcgbOct9Ixb7 ouUkYtgqLuD7efI6JfWGSpU KPoWLVpTvXwfcSck9Exq9Ff wPVpcXd1u8llGDUzZJNbhVi kc2vmPXG4SCYmB9S2mOClf2 qgULnzSOZbaDJ8nyjcSStmG PTvuyF4uytfIRhjFXDkoWJ5 ddtnKVluKSLcWkR0ghuxFYh aNLEwEQZ9YRfht104PPW4YH xzYmtwYWdlXHBnbmNvbnRcc GduZGVjXHBsYWluXHBsYWlu XGYwXGZzMjRccWxccGxhaW5 qAdPeWgDlSIpfSX5kYJGqZ9 pupTTbCJTtTQRsD8lwHzHns U5sjXtnKXtaumDzOHSzlkJf bg3xYPhzSOV2 Gross assessment was [facility] performed at ([facility], code = 2777) Department of Pathology, [address] [place] [address], Technical component [facility] was performed at ([facility], code = 2778) Department of Pathology, [address] [place] [address], Professional component [facility] was performed at ([facility], code = 2779) Department of Pathology, [address] [place], [place] [id number], [facility] [id number] 14:02:00Surgical Pathology Report Case: [id number] Authorizing Provider: Dougie Montoya MD Collected: 12/25/2019 08:20 AM Ordering Location: [facility] Received: 12/25/2019 11:14 AM SERVICES Pathologist: [...] AND CHRONICINFLAMMATION. Signing Pathologist Direct Phone Line: [phone] signed by Lois Metz MD on 12/27/2019 at 2:02 [id number], [id number] perforationA. Stomach; B. OmentumA. Received in formalin [...] posterior wallA9, anterior wallA10, one lymph node, qbkbmzglF49, one lymph nodeB. Received in formalin labeled withthe patient's name, accession number and "omentum" is a 39.0 x 13.7 x 1.5 cm portion of wallace-yellow fibrofatty omentum with attached fibromembranous tissue. Sectioning reveals a tn-yellow fibrofatty cutsurface, No discrete lesions are identified. [employer] Pusher sections are submitted in B1-B4. PA/pl P [facility]formedBaB[facility], Department of Pathology, [address] [place] [address], Fmnjaa [facility], Department of Pathology, [address] [place] [address], [facility], Department of [facility]ology, [address] [place] [address], OGIK-COV2/RT-PCR ([facility])2019-12-27 12:48:00 Test Item Value Reference Range Interpretation Comments SARS-COV2/RT-PCR (test Negative Not Detected, Negative, code = 8609594) See external report for linked test SARS-COV-2 PERFORMING LAB [facility] (test code = 5300697) Negative result for this test determines that [...] 564(g) of the Act.Fact Sheet for Healthcare Providers:https://www.[employer]anza/sites/default/files/product/documents/Fact_Shelaure garciag_ER_Fpzaqkrvs_Kfyw_BWIL-OoX-4.pdfFact Sheet for Healthcare Patients:https://www.[employer]/sites/default/files/product/ documents/Owxg_Iecmm_Toulrdsc_Eqyo_ODOM-WxS-4.pdfPerforming Laboratory:[facility], [place] [address]ULDHGJVOCM LEVEL, [id number] 07:01:00 Test Item Value Reference Range Interpretation Comments VANCOMYCIN TROUGH (BEAKER) (test 7.1 ug/mL 10.0-20.0 L code = 522) [employer] Project Manager LAKISHA TRIPP LBASIC METABOLIC [id number] 06:28:00 Test Item Value Reference Range Interpretation [...] S NOT APPLICABLE FOR DIALYSIS PATIEN TS. [employer] Project Manager ID Denia TRIPP [id number] 06:17:00 Test Item Value Reference Range Interpretation Comments PHOSPHORUS (BEAKER) (test code = 2.2 mg/dL 2.3-4.7 L 604) [employer] Project Manager LAKISHA TRIPP [id number] 06:17:00 Test Item Value Reference Range Interpretation Comments MAGNESIUM (BEAKER) (test code = 1.8 mg/dL 1.6-2.6 627) [employer] Project Manager LAKISHA TRIPP LHEPATIC FUNCTION [id number] 06:17:00 Test Item Value Reference Range Interpretation [...] (test code = 14 U/L 6-55 347) [employer] Project Manager LAKISHA TRIPP LCBC W/PLT COUNT & AUTO [id number] 06:05:00 Test Item Value Reference Range Interpretation [...] PERCENT (BEAKER) (test code = 2801) POC-Glucose [id number] 11:06:00 Test Item Value Reference Range Interpretation Comments POC-Glucose Meter (test 72 mg/dL 70-110 : TE STED AT [facility] code = 1538) [address] [facility], 770 30: [employer] Project Manager/Techni pollo ID = [id number] for TESSIE GRAYSON [facility] Lab Interpretation (test Normal code = 42221-6) [facility] [id number] 11:06:00 Test Item Value Reference Range Interpretation Comments POC-GLUCOSE METER 72 mg/dL 70-110 : TESTED A T [facility] 6720 (BEAKER) (test code = TANIA Naik [facility], 1538) [address]: [employer] Project Manager/Techni pollo ID = [id number] for MAN DISLA BASIC METABOLIC [id number] 07:24:00 Test Item Value Reference Range Interpretation [...] S NOT APPLICABLE FOR DIALYSIS PATIEN TS. [employer] Project Manager ID - [id number] 07:18:00 Test Item Value Reference Range Interpretation Comments PHOSPHORUS (BEAKER) (test code = 2.4 mg/dL 2.3-4.7 604) [employer] Project Manager ID - [id number] 07:18:00 Test Item Value Reference Range Interpretation Comments MAGNESIUM (BEAKER) (test code = 1.8 mg/dL 1.6-2.6 627) [employer] Project Manager ID - BSHEPATIC FUNCTION [id number] 07:18:00 Test Item Value Reference Range Interpretation [...] (test code = 11 U/L 6-55 347) [employer] Project Manager ID - BSCBC W/PLT COUNT & AUTO [id number] 06:08:00 Test Item Value Reference Range Interpretation [...] PERCENT (BEAKER) (test code = 2801) SARS-COV2/RT-PCR ([facility])2019-12-25 18:47:00 Test Item Value Reference Range Interpretation Comments SARS-COV2/RT-PCR (test code Negative Not Detected, Negative, = 7116225) See external report for linked test SARS-COV-2 PERFORMING LAB [facility] (test code = 6817507) Negative results do not preclude SARS-CoV-2 infection [...] of the Act.Fact Sheet for Healthcare Pro viders:https://www.Muchasa/Documents/Xpert%20Xpress%20SARS%20CoV-2/Fact%20Sh eets/302-7302%56GVWT-YRX-2%20HEALTHCARE%20PROVIDERS%20FACT%20SHEET.pdfFact Sheet for Healthcare Patients:https://www.BookingBug.[employer]/Documents/Xpert%20Xpress%20SARS%20CoV-2/Fact%20Sheets/3023801%20SARS-COV -2%20PATIENT%20FACT%20SHEET.pdfPerforming Laboratory:[facility], [place] [address]XNICE METABOLIC [id number] 15:48:00 Test Item Value Reference Range Interpretation [...] S NOT APPLICABLE FOR DIALYSIS PATIEN TS. [employer] Project Manager ID - BSBASIC METABOLIC [id number] 15:00:00 Test Item Value Reference Range Interpretation [...] S NOT APPLICABLE FOR DIALYSIS PATIEN TS. [employer] Project Manager ID - [id number] 15:00:00 Test Item Value Reference Range Interpretation Comments MAGNESIUM (BEAKER) (test code = 1.9 mg/dL 1.6-2.6 627) [employer] Project Manager ID - [id number] 14:59:00 Test Item Value Reference Range Interpretation Comments PHOSPHORUS (BEAKER) (test code = 4.1 mg/dL 2.3-4.7 604) [employer] Project Manager ID - BSECG 12 [id number] 13:25:22Interface, External Ris In - 12/25/2019 1:25 PM CDTVentricular Rate 70 BPMAtrial Rate 70 BPMP-R Interval 146 msQRS Duration 86 msQ-T Interval 438 msQTC Calculation(Bazett) 473 msP Andrew 58 degreesR Andrew 66 degreesT Andrew 79 degreesNormal sinus rhythmWithin normal limitsNo previous ECGs availableConfirmed by MD Loza Roberto ([id number]) on 12/25/2019 1:25:20 [facility] 12:34:00 Test Item Value Reference Range Interpretation Comments MAGNESIUM (BEAKER) (test code = 1.9 mg/dL 1.6-2.6 627) [employer] Project Manager ID - LMBASIC METABOLIC [id number] 12:34:00 Test Item Value Reference Range Interpretation [...] S NOT APPLICABLE FOR DIALYSIS PATIEN TS. [employer] Project Manager ID - [id number] 12:33:00 Test Item Value Reference Range Interpretation Comments PHOSPHORUS (BEAKER) (test code = 4.8 mg/dL 2.3-4.7 H 604) [employer] Project Manager ID - LMCBC (Hemogram only)2019-12-25 12:27:00 Test Item Value Reference Range Interpretation Comments WBC (test code = 6690-2) 16.8 See_Comment H [A utomated message] The system [employer] generated this result transmitted ref erence range: 3.5 - 10 .5 K/L. The refe rence range was not u sed to interpret this result as normal/abnor mal. RBC (test code = 789-8) 3.96 See_Comment [Au tomated message] The system [employer] generated this result transmitted ref erence range: 3.93 - 5 .22 M/L. The refe rence range was not u sed to interpret this result as normal/abnor mal. MCHC (test code = 786-4) 30.0 See_Comment L [A utomated message] The system [employer] generated this result transmitted ref erence range: 32.2 - 3 5.5 GM/DL. The refe rence range was not u sed to interpret this result as normal/abnor mal. Hematocrit (test code = 28.7 % 34.1-44.9 L 4544-3) MCV (test code = 787-2) 72.5 fL 79.4-94.8 L MCH (test code = 785-6) 21.7 pg 25.6-32.2 L RDW (test code = 788-0) 19.8 % 11.7-14.4 H Platelets (test code = 233 See_Comment [Aut omated message] 407-3) The system [employer] generated this result transmitted ref erence range: 150 - 45 0 K/CU MM. The referen ce range was not u sed to interpret this result as normal/abnor mal. MPV (test code = [place] 64706-7) to abnormal [place] telet population distribution. nRBC (test code = 413) 0 See_Comment [Aut omated message] The system [employer] generated this result transmitted ref erence range: 0 - 0 /1 00 WBC. The refere nce range was not u sed to interpret this result as normal/abnor mal. Lab Interpretation (test Abnormal code = 79222-7) [facility] (HEMOGRAM ONLY)2019-12-25 12:27:00 Test Item Value Reference [...] 0-0 CELLS (BEAKER) (test code = 413) [id number] 11:53:00 Test Item Value Reference Range Interpretation Comments PHOSPHORUS (BEAKER) (test code = 2.9 mg/dL 2.3-4.7 604) [employer] Project Manager ID - LMHGB/HCT (H&H)-Stat [id number] 10:15:00 Test Item Value Reference Range Interpretation Comments Hemoglobin (test code = 786-4) 8.9 g/dL 12-15 L Hematocrit (test code = 4544-3) 26.0 % 36-45 L Lab Interpretation (test code = Abnormal 10902-1) [facility] [id number] 10:15:00 Test Item Value Reference Range Interpretation Comments Glucose (test code = 2345-7) 116 mg/dL 70-110 H Lab Interpretation (test code = Abnormal 01688-8) [facility] [id number] 10:15:00 Test Item Value Reference Range Interpretation Comments Sodium (test code = 2951-2) 129 meq/L 136-145 L Lab Interpretation (test code = Abnormal 86581-0) [facility] [id number] 10:15:00 Test Item Value Reference Range Interpretation Comments Potassium (test code = 2823-3) 3.2 meq/L 3.6-5.5 L Lab Interpretation (test code = Abnormal 15265-2) [facility] [id number] 10:15:00 Test Item Value Reference Range Interpretation Comments SODIUM (BEAKER) (test code = 381) 129 meq/L 136-145 L POTASSIUM-STAT [id number] 10:15:00 Test Item Value Reference Range Interpretation Comments POTASSIUM (BEAKER) (test code = 3.2 meq/L 3.6-5.5 L 379) GLUCOSE-STAT [id number] 10:15:00 Test Item Value Reference Range Interpretation Comments GLUCOSE RANDOM (BEAKER) (test code 116 mg/dL 70-110 H = 652) HGB/HCT (H&H) - STAT [id number] 10:15:00 Test Item Value Reference Range Interpretation Comments HEMOGLOBIN (BEAKER) (test code = 8.9 g/dL 12.0-15.0 L 410) HEMATOCRIT (BEAKER) (test code = 26.0 % 36.0-45.0 L 411) Blood gas, [id number] 10:13:00 Test Item Value Reference Range Interpretation Comments pH, Josias (test code = 7.29 7.32-7.42 L 2746-6) pCO2, Josias (test code = 48 See_Comment [Aut omated 755) message] The sy stem which generated this result transmitted reference range : 41 - 51 mmHg. The reference range was not used to interpret this result as normal/abnormal . pO2, Josias (test code = 69 See_Comment H [Auto mated 3405-2) message] The sy stem which generated this result transmitted reference range : 25 - 40 mmHg. The reference range was not used to interpret this result as normal/abnormal . O2 Sat, Josias (test code 92.5 % 40-70 H = 2711-0) HCO3, Josisa (test code = 23 mmol/L 21-29 47519-5) Base Excess, Josias (test -4.0 mmol/L -2-3 L code = 1927-3) Patient Temperature 36.2 C (test code = 8310-5) FIO2 (test code = 1819) 55 % Lab Interpretation Abnormal (test code = 30639-4) [facility] [id number] 10:13:00 Test Item Value Reference Range Interpretation Comments Calcium, Ion (test code = 1993-3) 1.06 mmol/L 1.12-1.27 L pH, Blood (test code = 57043-5) 7.28 Lab Interpretation (test code = Abnormal 34537-4) [facility], [id number] 10:13:00 Test Item Value Reference Range Interpretation Comments CALCIUM IONIZED (BEAKER) (test 1.06 mmol/L 1.12-1.27 L code = 698) PH, BLOOD (BEAKER) (test code = 7.28 1810) BLOOD GAS, [id number] 10:13:00 Test Item Value Reference Range Interpretation [...] (test code = 1819) 55.0 % Manual [id number] 09:14:00 Test Item Value Reference Range Interpretation [...] few 474) DIONI (test code = DIONI) [employer] Project Manager ID - [id number] diff Lab Interpretation (test Abnormal code = 50400-0) [facility](CELLAVISION MANUAL DIFF)2019-12-25 09:14:00 Test Item Value Reference [...] (BEAKER) (test code = 1+ few 474) [employer] Project Manager ID - [id number] diffABORH, [id number] 07:41:00 Test Item Value Reference Range Interpretation Comments ABO Grouping (test code = 2588) O Rh Factor (test code = 2589) POS [facility] and screen, [id number] 05:12:00 Test Item Value Reference Range Interpretation Comments ABO/RH AUTOMATED (BEAKER) (test O POSITIVE code = 2260) Ab Scrn (test code = 890-4) [facility]GATIVE [facility] 04:33[facility]00 Test Item Value Reference Range Interpretation Comments MAGNESIUM (BEAKER) (test code = 1.9 mg/dL 1.6-2.6 627) [employer] Project Manager ID Denia CATES WBASIC METABOLIC [id number] 04:33:00 Test Item Value Reference Range Interpretation [...] S NOT APPLICABLE FOR DIALYSIS PATIEN TS. [employer] Project Manager ID Denia CATES WCBC W/PLT COUNT & AUTO [id number] 04:22:00 Test Item Value Reference Range Interpretation [...] (BEAKER) (test code = 2801) HEPATIC FUNCTION [id number] 02:51:00 Test Item Value Reference Range Interpretation [...] = 31 U/L 5-34 353) ALT (SGPT) (BEAKER) (test code = 18 U/L 6-55 347) [employer] Project Manager ID Denia VARGASARS-COV2/RT-PCR ([facility])2019-12-25 01:01:00 Test Item Value Reference Range Interpretation Comments SARS-COV2/RT-PCR (test code Negative Not Detected, Negative, = 7243527) See external report for linked test SARS-COV-2 PERFORMING LAB [facility] (test code = 2272899) Negative results do not preclude SARS-CoV-2 infection [...] of the Act.Fact Sheet for Healthcare Pro viders:https://www.Muchasa/Documents/Xpert%20Xpress%20SARS%20CoV-2/Fact%20Sh eets/3023802%35UVAP-QME-2%20HEALTHCARE%20PROVIDERS%20FACT%20SHEET.pdfFact Sheet for Healthcare Patients:https://www.BookingBug.[employer]/Documents/Xpert%20Xpress%20SARS%20CoV-2/Fact%20Sheets/3023801%20SARS-COV -2%20PATIENT%20FACT%20SHEET.pdfPerforming Laboratory:[facility], [place] [address]Gpaaihza [id number] 00:40:00 Test Item Value Reference Range Interpretation Comments Troponin I (test code = 0.02 ng/mL 0-0.03 29395-2) DIONI (test code = DIONI) Troponin I [...] neurological disease, and persistent tachyarrhythmia.Opera tor ID Denia Fu Lab Interpretation (test Normal code = 03608-3) [facility] [id number] 00:40:00 Test Item Value Reference Range Interpretation [...] failure, acidosis, acute neurological disease, and persistent tachyarrhythmia.[employer] Project Manager ID - LOAN WEBBAD, CHEST, 1 VIEW, NON [id number] 00:40:00Reason for exam:->Chest painShould this be performed at the bedside?->YesFINAL REPORT INDICATION: Chest pain COMPARISON: None TECHNIQUE: Single frontal view of the chest. IMPRESSION: Lungs and pleura: Clear lungs. No effusion.Heart and mediastinum: Normal heart size. Unremarkable mediastinal contours.Osseous structures: No acute abnormality.Other: Mildly displaced fracture of the posterior right eighth rib of indeterminate chronicity. Signed: Ralf Mauricio [facility] Verified Date/Time: 12/25/2019 00:40:46 XR chest 1 view portable / [id number] 00:40:00 Interface, External Ris In - 12/25/2019 12:42 AM CDTFINAL REPORT INDICATION: Chest pain COMPARISON: None TECHNIQUE: Single frontal view of the chest. IMPRESSION: Lungs and pleura: Clear lungs. No effusion.Heart and mediastinum: Normal heart size. Unremarkable mediastinal contours.Osseous structures: No acute abnormality.Other: Mildly displaced fracture of the posterior right eighth rib of indeterminate chronicity. Signed: Ralf Mauricio MDReport Verified Date/Time: 12/25/2019 00:40:46 [facility] [id number] 00:33:00 Test Item Value Reference Range Interpretation Comments PHOSPHORUS (BEAKER) (test code = 2.8 mg/dL 2.3-4.7 604) [employer] Project Manager ID - [id number] 00:33:00 Test Item Value Reference Range Interpretation Comments MAGNESIUM (BEAKER) (test code = 1.3 mg/dL 1.6-2.6 L 627) [employer] Project Manager ID - BSBASIC METABOLIC [id number] 00:33:00 Test Item Value Reference Range Interpretation [...] S NOT APPLICABLE FOR DIALYSIS PATIEN TS. [employer] Project Manager ID - BSProthrombin time/[id number] 00:17:00 Test Item Value Reference Interpretation Comments Range Protime (test code = 16.5 See_Comment H [Autom ated 5902-2) message] The system which generated this result transmitted reference range : 11.9 - 14.2 seconds. The reference range was not used to interpret this result as normal/abnormal . INR (test code = 1.4 See_Comment [Automated 6301-6) message] The system which generated this result transmitted reference range : <=5.9. The reference range was not used to interpret this result as normal/abnormal . DIONI (test code = Effective 11/01/2018: DIONI) PT Reference Range ChangeNew: 11.9-14.2 Previous: 11.7-14.7 RECOMMENDED COUMADIN/WARFARIN INR THERAPY RANGESSTANDARD DOSE: 2.0-3.0 Includes: PROPHYLAXIS for venous thrombosis, systemic embolization; TREATMENT for venous thrombosis and/or pulmonary embolus.HIGH RISK: Target INR is 2.5-3.5 for patients wiht mechanical heart valves. Lab Interpretation Abnormal (test code = 43462-3) [facility] HospitalPROTHROMBIN TIME/[id number] 00:17:00 Test Item Value Reference Range Interpretation [...] mechanical heart valves.CBC W/PLT COUNT & AUTO [id number] 00:11:00 Test Item Value Reference Range Interpretation [...]
[2020-08-29 14:49] LABS: Protime INR 1.23
[2020-08-29 14:59] LABS: Absolute Lymphocytes (CBC) 1.6 K/uL (0.7-4.9); Basophils % 0.4 % (0-1.3); Hematocrit 20.2 % (36.0-45.0); Lymphocytes % 16.6 % (15.3-44.8); MPV 9.4 fL (7.6-11.3); RBC Red Blood Cell Count 3.28 M/uL (3.86-4.86)
--- NOTE | 2020-08-29 15:10 | RAD REPORT ---
EXAM DESCRIPTION: CT - Abdomen Pelvis W Contrast - 08/29/2020 2:53 pm CLINICAL HISTORY: Abdominal pain COMPARISON: 2019 TECHNIQUE: Computed axial tomography of the abdomen pelvis was obtained. 100 cc Isovue-300 was admin istered intravenously. Oral contrast was not requested which limits evaluation of bowel. All CT scans are performed using dose optimization technique as appropriate and may include automated exposure control or mA/KV adjustment according to patient size. FINDINGS: Prominence of the left and caudate lobes of the liver. The density is normal. Cholecystectomy. Spleen is upper limits normal size. Left upper quadrant varices present. The pancreas, left adrenal and kidneys are unremarkable. Small right adrenal adenoma is suspected. 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 . Ventral hernia within the lower abdomen contains small portion of nondilated bowel. 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
[2020-08-29 15:14] LABS: ALT/SGPT 52 U/L (12-78); AST/SGOT 90 U/L (15-37); Albumin 2.9 g/dL (3.4-5.0); Alkaline Phosphatase 71 U/L (45-117); BUN Blood Urea Nitrogen 8 mg/dL (7-18); Bicarbonate 25 mmol/L (21-32); Bilirubin Direct 0.3 mg/dL (0-0.2); Bilirubin Total 0.8 mg/dL (0.2-1.0); Glucose Level 107 mg/dL (74-106); Magnesium 1.8 mg/dL (1.8-2.4); NT PRO-BNP 9317 pg/mL (<125); Protein, Total 7.1 g/dL (6.4-8.2); Sodium Level 139 mmol/L (136-145); Troponin (Emerg Dept Use Only) 5.73 ng/mL (0.0-0.045)
[2020-08-29 15:16] LABS: Potassium 2.9 mmol/L (3.5-5.1)
--- NOTE | 2020-08-29 15:16 | RAD REPORT ---
EXAM DESCRIPTION: Robinson Single View08/29/2020 2:15 pm CLINICAL HISTORY: Shortness of breath COMPARISON: 2019 FINDINGS: The lungs appear clear of acute infiltrate. The heart is borderline enlarged Upper lobe vessels are prominent indicative of pulmonary venous hypertension
[2020-08-29 15:28] LABS: Urine Bacteria <20 /HPF (<20); Urine Mucus 1+ /HPF (NONE SEEN); Urine RBC <5 /HPF (NONE SEEN)
[2020-08-29 15:28] LABS: Urine Blood NEGATIVE (Negative); Urine Glucose NEGATIVE (Negative); Urine Protein 1+ (NEG)
[2020-08-29 15:36] LABS: Anisocytosis 1+; Blood Morphology Comment NOTED (NOT SEEN); Hypochromasia 2+; Platelet Estimate ADEQ; Poikilocytosis 2+; White Blood Cell Scan OK (OK)
[2020-08-29 15:37] LABS: Ovalocytes 1+; Target Cells FEW; Teardrop Cell FEW
[2020-08-29] MEDS ORDERED: ONDANSETRON 4 MG/2 ML VIAL ONE (15:59)
[2020-08-29] MEDS ORDERED: ASPIRIN 81 MG CHEWABLE TABLET ONE ×2 (16:04→16:05)
[2020-08-29] MEDS ORDERED: PANTOPRAZOLE 40 MG INJ ONE (16:15)
[2020-08-29] MEDS ORDERED: KCL 20 MEQ/100 mL IVPB 20 MEQ/100 ML BAG IV ONE (16:15)
[2020-08-29] MEDS ORDERED: PANTOPRAZOLE INJ 80 MG in NA CHLORIDE 0.9% 250 ML IV SCH (17:00)
--- NOTE | 2020-08-29 17:18 | ER ---
Nurse's Notes [facility] Name: Lakeisha Kumari Age: 65 yrs Sex: Female : 1955 Arrival Date: 08/29/2020 Time: 13:06 Bed 2 Private MD: Diagnosis: Non-ST elevation (NSTEMI) myocardial infarction;Anemia in chronic diseases classified elsewhere;Hypokalemia Presentation: 08/29 13:07 Chief complaint: EMS states: Pt had blood work done in office yesterday. Receive phone vg1 call from doctors office stating Hemoglobin was 6.6 and needed to report to ER to receive a blood transfusion. Pt also stated having trouble breathing and ABD pain. Coronavirus screen: Client denies travel out of the [place] in the last 14 days. Ebola Screen: Patient negative for fever greater than or equal to 101.5 degrees Fahrenheit, and additional compatible Ebola Virus Disease symptoms. Initial Sepsis Screen: Does the patient meet any 2 criteria? No. Patient's initial sepsis screen is negative. Does the patient have a suspected source of infection? No. Patient's initial sepsis screen is negative. Risk Assessment: Do you want to hurt yourself or someone else? Patient reports no desire to harm self or others. Onset of symptoms was August 28, 2020. 13:07 Method Of Arrival: EMS: [facility] vg1 13:07 Acuity: KVNG 3 vg1 Historical: - Allergies: 18:42 No Known Allergies; tw2 - Home Meds: 13:10 amlodipine oral [Active]; Buspirone Oral [Active]; Buspirone Oral [Active]; lisinopril vg1 Oral [Active]; Prozac Oral [Active]; Prozac Oral [Active]; - PMHx: 13:10 Alcoholism; Anxiety; Cirrhosis; Depression; Hepatitis; Hypertension; Atrial Fib; vg1 - Immunization history:: Adult Immunizations up to date, Flu vaccine is not up to date. - Social history:: Smoking status: Patient reports the use of cigarette tobacco products. Screenin:12 Abuse screen: Denies threats or abuse. Nutritional screening: No deficits noted. vg1 Tuberculosis screening: No symptoms or risk factors identified. Fall Risk No fall in past 12 months (0 pts). No secondary diagnosis (0 pts). IV access (20 points). Ambulatory Aid- None/Bed Rest/Nurse Assist (0 pts). Gait- Normal/Bed Rest/Wheelchair (0 pts) Mental Status- Oriented to own ability (0 pts). Total Holliday Fall Scale indicates No Risk (0-24 pts). Assessment: 13:10 General: Appears in no apparent distress. comfortable, Behavior is cooperative, vg1 anxious, crying. Pain: Complains of pain in abdomen Pain currently is 6 out of 10 on a pain scale. Neuro: Level of Consciousness is awake, alert, obeys commands, Oriented to person, place, time, situation. Cardiovascular: Patient's skin is warm and dry. Respiratory: Airway is patent Respiratory effort is even, unlabored, Respiratory pattern is regular, symmetrical, Breath sounds are clear bilaterally. GI: Reports lower abdominal pain, upper abdominal pain, diarrhea, nausea, vomiting. : No signs and/or symptoms were reported regarding the genitourinary system. EENT: No signs and/or symptoms were reported regarding the EENT system. Derm: Skin is pink, warm \T\ dry. Musculoskeletal: Circulation, motion, and sensation intact. 15:14 Reassessment: Patient appears in no apparent distress at this time. No changes from vg1 previously documented assessment. Patient and/or family updated on plan of care and expected duration. Pain level reassessed. Patient is alert, oriented x 3, equal unlabored respirations, skin warm/dry/pink. 15:37 Reassessment: pt c/o nausea, provider notified, medicated as ordered. tw2 18:15 Reassessment: SEE BLOOD TRANSFUSION RECORD. tw2 18:45 Reassessment: Patient appears in no apparent distress at this time. No changes from ss previously documented assessment. Patient and/or family updated on plan of care and expected duration. Pain level reassessed. Patient is alert, oriented x 3, equal unlabored respirations, skin warm/dry/pink. 19:23 Reassessment: report given to ELEONORA Dixon of ICU [facility]. mg2 20:00 Reassessment: ongoing blood unit upon transfer. refer to BT monitoring sheet for rv reference. Vital Signs: 13:07 BP 156 / 70; Pulse 88; Resp 18; Temp 99.0; Pulse Ox 100% ; Weight 54.43 kg; Height 5 vg1 ft. 4 in. (162.56 cm); Pain 6/10; 15:14 BP 172 / 80; Pulse 84; Resp 16; Pulse Ox 100% on R/A; vg1 17:11 BP 119 / 59; Pulse 87; Resp 16; Pulse Ox 99% on R/A; mt 18:00 BP 114 / 86; Pulse 76; Resp 17; Pulse Ox 99% ; tw2 18:30 BP 132 / 70; Pulse 69; Resp 16; Pulse Ox 100% on R/A; tw2 19:23 BP 130 / 69; Pulse 73; Resp 18; Temp 98.7; Pulse Ox 98% on R/A; mg2 19:59 BP 130 / 70; Pulse 78; Resp 16; Pulse Ox 97% on R/A; rv 13:07 Body Mass Index 20.60 (54.43 kg, 162.56 cm) vg1 ED Course: 13:06 Patient arrived in ED. vg1 13:09 Triage completed. vg1 13:12 Patient has correct armband on for positive identification. Bed in low position. Call vg1 light in reach. Side rails up X2. vehicle monitor technician on. Pulse ox on. NIBP on. Door closed. Warm blanket given. 13:13 Arm band placed on. vg1 13:15 Devon Price PA is PHCP. cp 13:15 Wale Brady MD is Attending Physician. cp 13:52 Poornima Paredes, ELEONORA is Primary Nurse. vg1 14:15 XRAY Chest (1 view) In Process Unspecified. EDMS 14:31 Inserted saline lock: 22 gauge in left forearm, using aseptic technique. Blood mt collected. 14:53 CT Abd/Pelvis - IV Contrast Only In Process Unspecified. EDMS 15:07 Notified ED physician of a critical lab result(s). Hgb 6.3, Hct 20.2 per eddie Bahena tw2 Tech. 15:44 initiated a transfer with Sherita from the [facility]. eb 16:09 Inserted saline lock: 22 gauge in right forearm, using aseptic technique. mt 16:41 per Sherita they will have to decline the patient in transfer due to being at capacity at all facilites in the ICU. 16:43 initiated a transfer with Michelle from the [facility] Transfer [facility]. eb 16:55 per Michelle Pisano they will have to decline the patient in transfer due to all eb facilities being at capacity at all [facility] ICUs. 17:05 Sherita from the [facility] called to let us know they may have a bed at [facility] and will call back with a doctor. 17:[address] Ab Olsen from [facility] with Devon Carr for patient transfer eb consultation. 17:15 administrative approval given by YOVANY Livingston/ patient has been accepted to [facility] ICU 202/ Dr. Joanne Quintero has accepted the patient in transfer/ report to be called to [phone]. 18:55 Missed attempt(s): 22 gauge in left forearm. mt 19:00 Report given to ELEONORA Driscoll. tw2 19:33 No provider procedures requiring assistance completed. Inserted saline lock: 22 gauge mg2 in left forearm, using aseptic technique. 20:00 IV is patent, with fluids infusing freely, Patient transferred, IV remains in place. rv Administered Medications: 15:45 Drug: Zofran (Ondansetron) 4 mg Route: IVP; Site: left forearm; vg1 16:10 Follow up: Response: No adverse reaction; Nausea is decreased vg1 15:49 Not Given (Physician Discretion): Aspirin Chewable Tablet 324 mg PO once; 81 mg tablets cp x 4 16:10 Drug: ProTONIX 40 mg Route: IVP; Site: left forearm; vg1 18:45 Follow up: Response: No adverse reaction ss 16:11 Drug: Potassium Chloride 20 mEq Route: IV; Rate: calculated rate; Site: left forearm; vg1 18:00 Follow up: IV Status: Completed infusion vg1 19:33 Drug: ProTONIX 8 mg/hr Route: IV; Rate: 25 ml/hr; Site: left forearm; mg2 20:00 Follow up: IV Status: Infusion continued upon transfer rv Outcome: 17:17 ER care complete, transfer ordered by MD. izaguirre 19:59 Transferred by ground EMS to other acute care facility: [facility]. Transfer rv form completed. X-rays sent w/ patient. 19:59 Condition: good 19:59 Instructed on the need for transfer. 20:01 Patient left the ED. rv Signatures: Dispatcher [facility] Suha Bravo RN RN ss Page, Corey, PA PA cp Wise, Tara, RN RN tw2 Bessy Argueta mt, Elizabeth eb Gardose, Michele, RN RN mg2 Kwasi Yepez RN RN Poornima Neal, RN RN vg1 Corrections: (The following items were deleted from the chart) 17:12 17:03 initiated a transfer with Forest from the [facility] garry castañeda
--- NOTE | 2020-08-29 17:18 | EDPHYS ---
Physician Documentation [facility] Name: Lakeisha Kumari Age: 65 yrs Sex: Female : 1955 Arrival Date: 08/29/2020 Time: 13:06 Bed 2 Private MD: ED Physician Wale Brady HPI: 08/29 13:30 This 65 yrs old Female presents to ER via EMS with complaints of Abnormal Lab cp Results. 13:30 low hemoglobin level. cp 13:30 Onset: The symptoms/episode began/occurred at an unknown time. Patient reports having cp blood drawn by office of DR Mahan yesterday that show low hemoglobin level. Patient reports she was called today and told to go to ED to be evaluated. Patient reports shortness of breath, dark colored stools. Historical: - Allergies: 18:42 No Known Allergies; tw2 - Home Meds: 13:10 amlodipine oral [Active]; Buspirone Oral [Active]; Buspirone Oral [Active]; lisinopril vg1 Oral [Active]; Prozac Oral [Active]; Prozac Oral [Active]; - PMHx: 13:10 Alcoholism; Anxiety; Cirrhosis; Depression; Hepatitis; Hypertension; Atrial Fib; vg1 - Immunization history:: Adult Immunizations up to date, Flu vaccine is not up to date. - Social history:: Smoking status: Patient reports the use of cigarette tobacco products. ROS: 13:35 Constitutional: Negative for body aches, chills, fever, poor PO intake. cp 13:35 Cardiovascular: Negative for chest pain, edema, palpitations. cp 13:35 Respiratory: Positive for shortness of breath, on exertion. Negative for wheezing. 13:35 Abdomen/GI: Positive for abdominal pain, black/tarry stool, Negative for vomiting, diarrhea, constipation, rectal bleeding. 13:35 Neuro: Positive for weakness, Negative for altered mental status, headache, syncope. Exam: 13:25 ECG was reviewed by the Attending Physician. cp 13:40 Constitutional: The patient appears in no acute distress, alert, awake, cp non-diaphoretic, non-toxic, well developed, well nourished. 13:40 Head/Face: Normocephalic, atraumatic. cp 13:40 Eyes: Periorbital structures: appear normal, Pupils: equal, round, and reactive to light and accomodation, Extraocular movements: intact throughout, Conjunctiva: normal, no exudate, no injection, Sclera: no appreciated abnormality, Lids and lashes: appear normal, bilaterally. 13:40 ENT: External ear(s): are unremarkable, Nose: is normal, Mouth: Lips: moist, Oral mucosa: pink and intact, moist, Posterior pharynx: Airway: no evidence of obstruction, patent. 13:40 Neck: ROM/movement: is normal, is supple, without pain, no range of motions limitations. 13:40 Chest/axilla: Inspection: normal, Palpation: is normal, no crepitus, no tenderness. 13:40 Cardiovascular: Rate: normal, Rhythm: regular, Edema: is not appreciated, JVD: is not appreciated. 13:40 Respiratory: the patient does not display signs of respiratory distress, Respirations: normal, no use of accessory muscles, no retractions, labored breathing, is not present, Breath sounds: are clear throughout, no decreased breath sounds, no stridor, no wheezing. 13:40 Neuro: Orientation: to person, place \T\ time. Mentation: is normal, Cerebellar function: is grossly normal, Motor: moves all fours, strength is normal, Sensation: no obvious gross deficits. 13:58 Abdomen/GI: Rectal exam: rectal tone normal, Stool: guaiac negative, scant amount cp obtained but appears brown. Vital Signs: 13:07 BP 156 / 70; Pulse 88; Resp 18; Temp 99.0; Pulse Ox 100% ; Weight 54.43 kg; Height 5 vg1 ft. 4 in. (162.56 cm); Pain 6/10; 15:14 BP 172 / 80; Pulse 84; Resp 16; Pulse Ox 100% on R/A; vg1 17:11 BP 119 / 59; Pulse 87; Resp 16; Pulse Ox 99% on R/A; mt 18:00 BP 114 / 86; Pulse 76; Resp 17; Pulse Ox 99% ; tw2 18:30 BP 132 / 70; Pulse 69; Resp 16; Pulse Ox 100% on R/A; tw2 19:23 BP 130 / 69; Pulse 73; Resp 18; Temp 98.7; Pulse Ox 98% on R/A; mg2 19:59 BP 130 / 70; Pulse 78; Resp 16; Pulse Ox 97% on R/A; rv 13:07 Body Mass Index 20.60 (54.43 kg, 162.56 cm) vg1 MDM: 13:35 Patient medically screened. cp 14:00 Differential Diagnosis sepsis, anemia, upper GI bleed, acute ND. cp 15:45 Data reviewed: vital signs, nurses notes, lab test result(s), EKG, radiologic studies, cp CT scan, plain films. 15:45 Physician consultation: kM Mallory was called at 15:45, was contacted at 15:45, regarding patient's condition, after a discussion of the case, a recommendation for transfer for higher level of care is made, due to GI not being available for consult. 17:20 Physician consultation: was contacted at 17:15, regarding regarding transfer, [facility] accepting physician will be DR Quintero. 08/29 13:34 Order name: Basic Metabolic Panel 08/29 13:34 Order name: CBC with Diff 08/29 13:34 Order name: LFT's 08/29 13:34 Order name: Magnesium 08/29 13:34 Order name: NT PRO-BNP 08/29 13:34 Order name: PT-INR 08/29 13:34 Order name: Troponin (emerg Dept Use Only); Complete Time: 15:21 cp 08/29 15:21 Interpretation: Abnormal: TROPED 5.73. 08/29 13:34 Order name: Urine Microscopic Only; Complete Time: 15:39 cp 08/29 13:34 Order name: Type And Screen 08/29 13:35 Order name: Basic Metabolic Panel; Complete Time: 15:21 EDMS 08/29 15:21 Interpretation: Normal except: K 2.9; GLUC 107; CRE 0.52; CA 8.1. cp 08/29 13:35 Order name: CBC with Automated Diff; Complete Time: 15:39 EDMS 08/29 15:28 Interpretation: Normal except: WBC 9.50; RBC 3.28; HGB 6.3; HCT 20.2; MCV 61.8; MCH cp 19.1; MCHC 31.0; RDW 20.9. 08/29 13:35 Order name: Liver (Hepatic) Function; Complete Time: 15:21 EDMS 08/29 15:28 Interpretation: Normal except: AST 90; BILID 0.3; ALB 2.9; GLOB 4.2; A/G 0.7. 08/29 13:35 Order name: Magnesium; Complete Time: 15:21 [facility] 08/29 13:34 Order name: XRAY Chest (1 view); Complete Time: 15:21 08/29 13:34 Order name: EKG; Complete Time: 13:35 08/29 13:35 Order name: NT PRO-BNP; Complete Time: 15:21 [facility] 08/29 13:35 Order name: Protime (+INR); Complete Time: 15:10 [facility] 08/29 15:17 Interpretation: Abnormal: PT 14.2. 08/29 13:35 Order name: ETOH Level; Complete Time: 15:16 08/29 15:16 Interpretation: Abnormal: ETOH 15. 08/29 14:34 Order name: CT Abd/Pelvis - IV Contrast Only; Complete Time: 15:16 08/29 15:22 Order name: Urine Dipstick--Ancillary (enter results); Complete Time: 15:39 08/29 15:35 Order name: CBC Smear Scan; Complete Time: 15:39 [facility] 08/29 15:57 Order name: Bb Add On 08/29 16:00 Order name: Packed RBC Leukored [facility] 08/29 17:54 Order name: SARS-COV-2 RT PCR [facility] 08/29 13:34 Order name: Cardiac monitoring; Complete Time: 14:32 08/29 13:34 Order name: EKG - Nurse/Tech; Complete Time: 13:52 08/29 13:34 Order name: IV Saline Lock; Complete Time: 14:32 08/29 13:34 Order name: Labs collected and sent; Complete Time: 14:32 08/29 13:34 Order name: O2 Per Protocol; Complete Time: 14:32 08/29 13:34 Order name: O2 Sat Monitoring; Complete Time: 14:32 08/29 13:34 Order name: Urine Dipstick-Ancillary (obtain specimen); Complete Time: 15:14 08/29 19:25 Order name: Transfuse; Complete Time: 19:25 tw2 EC:25 Rate is 80 beats/min. Rhythm is regular. IL interval is normal. QRS interval is normal. cp QT interval is normal. T waves are Inverted in lead aVL. Interpreted by me. Reviewed by me. Administered Medications: 15:45 Drug: Zofran (Ondansetron) 4 mg Route: IVP; Site: left forearm; vg1 16:10 Follow up: Response: No adverse reaction; Nausea is decreased vg1 15:49 Not Given (Physician Discretion): Aspirin Chewable Tablet 324 mg PO once; 81 mg tablets cp x 4 16:10 Drug: ProTONIX 40 mg Route: IVP; Site: left forearm; vg1 18:45 Follow up: Response: No adverse reaction ss 16:11 Drug: Potassium Chloride 20 mEq Route: IV; Rate: calculated rate; Site: left forearm; vg1 18:00 Follow up: IV Status: Completed infusion vg1 19:33 Drug: ProTONIX 8 mg/hr Route: IV; Rate: 25 ml/hr; Site: left forearm; mg2 20:00 Follow up: IV Status: Infusion continued upon transfer rv Disposition: 18:00 Chart complete. cp Disposition: 08/29/20 17:17 Transfer ordered to Other Acute Care Facility. Diagnosis are Non-ST elevation (NSTEMI) myocardial infarction, Anemia in chronic diseases classified elsewhere, Hypokalemia. - Reason for transfer: Higher level of care. - Accepting physician is DR Quintero. - Condition is Stable. - Problem is new. - Symptoms have improved. Addendum: 09/01/2020 08:22 Co-signature as Attending Physician, Wale Brady MD I agree with the assessment and k dr plan of care. Signatures: Dispatcher [employer] [facility] Wale Brady MD MD [facility] Devon Price PA PA cp Ivelisse Finley, RN RN tw2 Americo Cuevas, RN RN mg2 Kwasi Yepez RN RN rv Poornima Paredes, RN RN vg1 Suha Ha RN ss Corrections: (The following items were deleted from the chart) 08/29 15:21 15:21 Normal except: K 2.9; GLUC 107; CRE 0.52. cp cp 17:06 13:35 CORONAVIRUS+MR.LAB.BRZ ordered. EDVA EDMS 19:11 13:58 Abdomen/GI: Rectal exam: rectal tone normal, Stool: brown, guaiac negative, cp cp 19:12 13:35 Abdomen/GI: Positive for abdominal pain, Negative for vomiting, diarrhea, cp constipation, black/tarry stool, rectal bleeding, cp 20:01 17:17 08/29/2020 17:17 Transfer ordered to Other Acute Care Facility. Diagnosis is rv Non-ST elevation (NSTEMI) myocardial infarction; Anemia in chronic diseases classified elsewhere; Hypokalemia. Reason for transfer: Higher level of care. Accepting physician is DR Quintero. Condition is Stable. Problem is new. Symptoms have improved. cp
[2020-08-29] MEDS ORDERED: NA CHLORIDE 0.9% 500 ML ONE (18:12)
--- NOTE | 2020-08-30 11:14 | EKG ---
Test Date: 2020-08-29 Test Time: 13:19:03 Track Equipment Operator: BRYNN MEASUREMENT RESULTS: Intervals: Rate: 80 MS: 158 QRSD: 82 QT: 402 QTc: 463 [place]: P: 103 MS: 158 QRS: 40 T: 88 INTERPRETIVE STATEMENTS: Sinus rhythm with premature atrial complexes ST & T wave abnormality, consider lateral ischemia Abnormal ECG Compared to ECG 03/28/2020 17:03:48 Atrial premature complex(es) now present ST (T wave) deviation now present Possible ischemia now present Sinus bradycardia no longer present Electronically Signed On 08-30-20 11:11:24 CDT by Coy Nava
[2020-08-30 13:58] VITALS: TEMP 98.7
[2020-08-30 13:59] VITALS: BP 130/70; O2SAT 97
== END 2020-08-29 20:01 ==
LOC: ER 13:03
DX: I21.4 Non-ST elevation (NSTEMI) myocardial infarction (principal); E87.6 Hypokalemia; D63.8 Anemia in other chronic diseases classified elsewhere; F17.210 Nicotine dependence, cigarettes, uncomplicated; F10.20 Alcohol dependence, uncomplicated; Z20.822 Contact with and (suspected) exposure to COVID-19; F41.9 Anxiety disorder, unspecified; K74.60 Unspecified cirrhosis of liver; F32.9 Major depressive disorder, single episode, unspecified; I10 Essential (primary) hypertension; I48.91 Unspecified atrial fibrillation
CPT/HCPCS: 96365; 96367; 93005; 85025; 80048; 36415; 80320; 86900; 83735; 86850; 85610; 86901; 80076; 84484; 83880; 74177; 71045; 96375; 99285; U0003; Q9967; C9113 ×2; J3480; P9016; J7050; J7040; J2405; 36430; 81003; 81015

== ENCOUNTER 2021-02-06 21:42 | Inpatient (IN) | payer OTHER ==
--- OUTSIDE RECORDS SUMMARY | 2021-02-06 21:49 | XMS REPORT | Continuity of Care Document ---
:1955 Author Organization [facility] t Address [address] [place] [address] Care Team Providers Name Role Phone Pcp Primary Care Physician Unavailable Trey MCKEON Attending Clinician Leon BURGOS Attending Clinician Cristiane Maria MD Attending Clinician Krishan Adams MD 'Opal' Attending Clinician LEON Attending Clinician Unavailable MEAGHAN IRENE Attending Clinician Unavailable LEON Admitting Clinician Unavailable MARYSOL Admitting Clinician Unavailable Payers Payer Name Policy Type Policy Number Effective Date Expiration Date S ource Problems Condition Condition Condition Status Onset Resolution Last Treating Co mments Source Name Details Category Date Date Treatment Clinician Date NSTEMI NSTEMI Disease Active [facility] - elevated elevated 00:00: Medica l myocardial myocardial 00 Ce nter infarction infarction ) ) Other Other Disease Active [facility] cirrhosis cirrhosis 12-24 [facility] - of liver of liver 00:00: Medica l 00 Center Hyponatrem Hyponatrem Disease Active [facility] ia 12-24 [facility] - 00:[facility]: Medical 00 Center Hypomagnes Hypomagnes Disease Active 2019- [facility] emia emia 12-24 [facility] - 00:[facility]: Medical 00 Center Hypokalemi Hypokalemi Disease Active 2019- [facility] a a 12-24 [facility] - 00:00: Medical 00 Center Perforatio Perforatio Disease Active [facility] n bowel n bowel 12-23 [facility] - 00:00: Medical 00 Center Allergies, Adverse Reactions, Alerts This patient has no known allergies or adverse reactions. Social History Social Habit Start Date Stop Date Quantity Comments Source History of tobacco Cigarette Smoker [facility] - use [facility] History [facility] - Alcohol Binge Medical [address] [facility] Sex Assigned At [facility] Tobacco use and 2020-12-05 2020-12-05 Never used [facility] ke - exposure 00:00:00 00:00:00 [facility] Alcohol intake 2020-12-05 2020-12-05 [facility]00 of alcohol [facility] Center (finding) History [facility] 2019-12-25 2019-12-25 4 [facility] - Alcohol Frequency 00:00:00 00:00:00 [facility] History [facility] 2019-12-25 2019-12-25 1 [facility] - Alcohol Std Drinks 00:00:00 00:00:00 Medica l [place] Alcohol Comment 2019-12-25 2019-12-25 quit a year ago [facility] - 00:00:00 00:00:00 [facility] Smoking Status Start Date Stop Date Source Current every day smoker 2020-12-05 00:00:[address] [facility] Medications Ordered Filled Start Stop Current Ordering Indication Dosage Frequency Signature Comments Components Source Medication Medication Date Date Medication? Clinician (SIG) Name Name atorvastati Yes 40mg QD Take [address] [facility] (LIPITOR) 7-02 tablet (40 Dipika kes - 40 MG 00:00: mg total) Medical tablet 00 by mouth Center nightly. carvediloL Yes 12.5mg Q.5D Take [address] [facility] [address] (COREG) 7-02 tablet [facility] - 12.5 MG 00:00: (12.5 mg Medica l tablet 00 total) by Center mouth 2 (two) times daily. clopidogreL Yes 75mg QD Take [address] [facility] (PLAVIX) 75 7-02 tablet (75 Dipika kes - mg tablet 00:00: mg total) Med ical 00 by mouth Center daily. lisinopriL Yes 40mg QD Take 1 [facility] (PRINIVIL,Z 7-02 tablet (40 Dipika kes - ESTRIL) 40 00:00: mg total) Me dical MG tablet 00 by mouth Center daily. aspirin 81 Yes 81mg QD Take 1 [facility] MG chewable 4-02 tablet (81 Dipika kes - tablet 00:00: mg total) Medica l 00 by mouth Center daily. pantoprazol Yes 40mg Take [address] [facility] e 4-02 tablet (40 [facility] - (PROTONIX) 00:00: mg total) Me dical 40 MG 00 by mouth Center tablet every morning before breakfast. clopidogreL 2020- No 75mg QD Take [address] [facility] (PLAVIX) 75 09-05- tablet (75 L ukes - mg tablet 00:00: 00:00 mg total) Me dical 00 :00 by mouth Center daily. hydrOXYzine 2020- No 25mg Take [address] [facility] (ATARAX) 25 09-04- by mouth 3 L ukes - MG tablet 10:36: 00:00 (three) Medi tessy 43 :00 times Center daily as needed for Itching. HYDROcodone Yes 1{tbl} Take [address] -acetaminop 4-01 tablet by Vikas - hen (NORCO 00:00: mouth Medica l 5-325) 00 every 6 Center 5-325 mg (six) per tablet hours as needed. Max Daily Amount: 4 tablets LORazepam Yes .5mg Take [address] (ATIVAN) 4-01 tablet [facility] - 0.5 MG 00:00: (0.5 mg Medical tablet 00 total) by Center mouth every 8 (eight) hours as needed for Anxiety. Max Daily Amount: 1.5 mg atorvastati 2020- No 40mg QD Take [address] [facility] [facility] (LIPITOR) 09-04- tablet (40 L ukes - 40 MG 00:00: 00:00 mg total) Medica l tablet 00 :00 by mouth Center nightly. carvediloL 2020- No 25mg Q.5D Take [address] [facility] [address] (COREG) 25 09-04-02 tablet (25 Dipika kes - MG tablet 00:00: 00:00 mg total) Me dical 00 :00 by mouth 2 Center (two) times daily. lisinopriL No 40mg Q.5D Take [address] [facility] (PRINIVIL,Z 09-04 tablet (40 L [facility] - ESTRIL) 40 00:00: 00:00 mg total) M edical MG tablet 00 :00 by mouth 2 Cent er (two) times daily. omeprazole No [facility] (PriLOSEC) 08-28 [facility] - 40 MG 00:00: 00:00 Medical capsule 00 :00 [place] Ciprodex 2020- No [facility] 0.3-0.1 % 08-12 [facility] - otic 00:00: 00:00 Medical suspension 00 :00 [place] Vital Signs Vital Name Observation Time Observation Value Comments Source Systolic blood 2020-12-05 14:55:00 102 mm[Hg] [facility] Diastolic blood 2020-12-05 14:55:00 57 mm[Hg] [facility] Heart rate 2020-12-05 14:55:00 60 /min [facility] Body temperature 2020-12-05 14:55:[address] [facility] Body height 2020-12-05 14:55:00 162.6 cm [facility] Body weight 2020-12-05 14:55:00 49.442 kg [facility] BMI 2020-12-05 14:55:00 18.71 kg/m2 [facility] Oxygen saturation in 2020-12-05 14:55:00 99 /min [facility] Arterial blood by Medical Ce nter Pulse oximetry Respiratory rate 2020-12-05 14:21:00 18 /min [facility] Procedures Procedure Date / Time Performed Performing Clinician Sourcristiane e ECG 12-LEAD 2020-12-09 14:03:[address] [facility] CBC W/PLT COUNT & AUTO 2020-09-04 02:44:[address] [facility] DIFFERENTIAL [facility] BASIC METABOLIC PANEL (7) 2020-09-04 02:44:00 Alexandra Ewing [facility] MAGNESIUM 2020-09-04 02:44:00 Ewing, [facility] PHOSPHORUS 2020-09-04 02:44:00 Ewing [facility] CBC W/PLT COUNT & AUTO 2020-09-03 04:32:00 Ewing, [facility] BASIC METABOLIC PANEL (7) 2020-09-03 04:32:00 EwingAlexandra gillespie CH I [facility] MAGNESIUM 2020-09-03 04:32:00 Ewing, [facility] PHOSPHORUS 2020-09-03 04:32:00 Ewing, [facility] CBC W/PLT COUNT & AUTO 2020-09-02 04:48:00 Ewing [facility] BASIC METABOLIC PANEL (7) 2020-09-02 04:48:00 Kaylin Alexandra [facility] MAGNESIUM 2020-09-02 04:48:00 Ewing, [facility] PHOSPHORUS 2020-09-02 04:48:00 Ewing, [facility] POCT-GLUCOSE METER 2020-09-01 23:56:00 Leon [facility] POCT-GLUCOSE METER 2020-09-01 18:00:00 Leon [facility] L CATH & PCI 2020-09-01 16:26:00 Lynette Adams [facility] POCT-GLUCOSE METER 2020-09-01 12:20:00 Leon [facility] POCT-GLUCOSE METER 2020-09-01 12:02:00 Leon [facility] APTT 2020-09-01 09:33:00 Lynette Adamspham [facility] CBC (HEMOGRAM ONLY) 2020-09-01 04:08:00 Lynette Adams [facility] BASIC METABOLIC PANEL (7) 2020-09-01 04:08:00 Leon [facility] MAGNESIUM 2020-09-01 04:08:00 Kaylin [facility] PHOSPHORUS 2020-09-01 [facility] 2020-09-01 01:10:00 Lynette Adamspham [facility] PREPARE LEUKO-REDUCED RBC 2020-08-31 23:54[facility] 2020-08-31 15:24:00 Lynette Adams [facility] TROPONIN I 2020-08-31 06:15:[facility] 2020-08-31 06:15:00 Lynette Adams [facility] CBC (HEMOGRAM ONLY) 2020-08-31 04:27:00 Lynette Adams [facility] COMPREHENSIVE METABOLIC 2020-08-31 04:27:00 Leon [facility] MAGNESIUM 2020-08-31 04:27:00 [facility] PHOS[facility]US 2020-08-31 04:27:00 [facility] TROPONIN I 2020-08-31 00:02:00 [facility] 2020-08-30 22:00:00 Lynette Adams [facility] 2D ECHO W/ DOPPLER 2020-08-30 15:56:28 Marlee Yang [facility] (CW/PW/COLOR) [facility] PLATELET COUNT 2020-08-30 13:51:00 Lynette Adamspham [facility] APTT 2020-08-30 13:51:00 Lynette Adams [facility] OCCULT BLOOD, STOOL 2020-08-30 07:29:00 [facility] CBC W/PLT COUNT & AUTO 2020-08-30 05:01:00 [facility] 2020-08-30 05:01:00 [facility] LIPID PANEL 2020-08-30 05:01:00 [facility] B-TYPE NATRIURETIC FACTOR 2020-08-30 05:01:00 [facility] (BNP) [facility] BASIC METABOLIC PANEL (7) 2020-08-30 05:01:00 [facility] MAGNESIUM 2020-08-30 05:01:[address] [facility] TRANSFUSE LEUKO-REDUCED 2020-08-30 04:29:41 [facility] RED BLOOD CELLS [facility] RAPID DRUG SCREEN, URINE 2020-08-30 04:05:00 [facility] TYPE AND SCREEN, 2020-08-29 23:42:00 [facility] CBC W/PLT COUNT & AUTO 2020-08-29 22:37:00 Jason jefferson [facility] (MANUAL DIFFERENTIAL) 2020-08-29 22:37:00 [facility] BASIC METABOLIC PANEL (7) 2020-08-29 22:37:00 [facility] HEPATIC FUNCTION PANEL 2020-08-29 22:37:00 [facility] HEMOGLOBIN A1C 2020-08-29 22:37:00 [facility] PROTHROMBIN TIME/INR 2020-08-29 22:37:00 [facility] MAGNESIUM 2020-08-29 22:37:00 Gabriel Gomez [facility] TROPONIN I 2020-08-29 22:37:00 Gabriel Gomez [facility] ECG 12-LEAD 2020-08-29 22:24:57 Unknown, Hl7 Doctor [facility] L es [facility] REPORT OF PROCEDURE - 2020-08-29 00:00:00 Provider, Default [facility] - ENDOSCOPY SCAN Scanning [facility] CARDIAC CATH REPORT - 2020-08-29 00:00:00 Provider, Default [facility] - SCAN Scanning [facility] Plan of Care Planned Activity Planned Date Details Comments Source Future Scheduled 2023-08-[address] [facility] - Test 00:00:00 (procedure) [code = [facility] 94233736] Future Scheduled 2021-08-[address] Vikas es - Test 00:00:00 malignant neoplasm of [facility] colon (procedure) [code = 026938457] Future Scheduled 2021-02-04 INFLUENZA VACCINE (#1) [facility] Test 00:00:00 [code = INFLUENZA Medical Ce nter VACCINE (#1)] Future Scheduled 2020-06-[address] [facility] ukes - Test 00:00:00 WELLNESS (YEAR 2 or Medical Center FIRST YEAR if no IPPE) [code = MEDICARE ANNUAL WELLNESS (YEAR 2 or FIRST YEAR if no IPPE)] Future Scheduled 2020-06-[address] [facility] - Test 00:00:00 (12+) [code = [facility] DEPRESSION SCREENING (12+)] Future Scheduled 2006 SHINGLES VACCINES ([address] [facility] - Test 00:00:00 of 2) [code = SHINGLES Medic ga Center VACCINES (1 of 2)] Future Scheduled [address] Vikas es - Test 00:00:00 [facility] cervix (procedure) [code = 069176534] Future Scheduled 1975 DTAP/TDAP/TD VACCINES [facility] - Test 00:00:00 (1 - Tdap) [code = Medical C enter DTAP/TDAP/TD VACCINES (1 - Tdap)] Future Scheduled 1974 HEPATITIS C SCRE[facility]ING [facility] - Test 00:00:00 [code = HEPATITIS C Medical Center SCREENING] Future Scheduled 1968 COVID-19 VACCINE (1) [facility] - Test 00:00:00 [code = COVID-[address] VACCINE (1)] Future Scheduled [address] [facility] - Test 00:00:00 0-64 YRS (1 of 1 - Medical C enter PPSV23) [code = PNEUMOCOCCAL VACCINE 0-64 YRS (1 of 1 - PPSV23)] Future Scheduled [address] Vikas es - Test 00:00:00 malignant neoplasm of Medica Center breast (procedure) [code = 646176320] Encounters Start End Encounter Admission Attending Care Care Encounter Source Date/Time Date/Time Type Type Clinicians Facility Department ID 2020-12-05 2020-12-05 Office Trey [facility] [id number] 14:54:56 15:04:23 Visit Marlee [facility] 2020-12-05 2020-12-05 Travel [facility] [id number] [facility] 00:00:00 [facility] 2020-08-29 2020-09-04 Hospital Oh Quintero [facility] [id number] [facility] 21:16:00 12:30:00 Encounter Hermann Maria [facility] 2020-09-01 2020-09-01 Surgery Angie [facility] [id number] 16:00:00 17:04[facility]00 [facility] [place] 2020-08-30 2020-08-30 Travel [facility] [id number] [facility]00 00:00:00 [facility] 2020-08-29 2020-08-29 Orders [facility] [id number] 00:00:00 00:00:00 Only [facility] Results Test Description Test Time Test Comments Results Result Comments Source ECG 12 lead 2020-12-09 14:03:00 Test Item Value Reference Range Interpretation Comme nts Lab Interpretation (test code = 57499-2) Abnormal [facility] - [id number] 11:00:32 Ordered by an unspecified provider.[facility] + automated [id number] 04:38:00 Test Item Value Reference Range Interpretation Comments WBC (test code = 6690-2) 7.1 See_Comment [A utomated message] The system [employer] generated this result transmitted ref erence range: 4.0 - 10 .0 K/L. The refe rence range was not u sed to interpret this result as normal/abnor mal. RBC (test code = 789-8) 3.83 See_Comment L [Au tomated message] The system [employer] generated this result transmitted ref erence range: 4.00 - 5 .00 M/L. The refe rence range was not u sed to interpret this result as normal/abnor mal. MCHC (test code = 786-4) 30.3 See_Comment L [A utomated message] The system [employer] generated this result transmitted ref erence range: 32.0 - 3 6.0 GM/DL. The refe rence range was not u sed to interpret this result as normal/abnor mal. Hematocrit (test code = 26.4 % 36-46 L 4544-3) MCV (test code = 787-2) 68.9 fL 82-99 L MCH (test code = 785-6) 20.9 pg 27-33 L RDW (test code = 788-0) 24.4 % 12-15 H Platelets (test code = 205 See_Comment [Aut omated message] 777-3) The system [employer] generated this result transmitted ref erence range: 150 - 43 0 K/CU MM. The referen ce range was not u sed to interpret this result as normal/abnor mal. MPV (test code = [place] 15015-2) to abnormal [place] telet population distribution. nRBC (test code = 413) 0 See_Comment [Aut omated message] The system [employer] generated this result transmitted ref erence range: 0 - 0 /1 00 WBC. The refere nce range was not u sed to interpret this result as normal/abnor mal. % Neutros (test code = 58 % 429) % Lymphs (test code = 31 % 430) % Monos (test code = 9 % 431) % Eos (test code = 432) 2 % % Baso (test code = 437) 0 % # Neutros (test code = 4.12 See_Comment [Aut omated message] 670) The system [employer] generated this result transmitted ref erence range: 1.80 - 8 .00 K/L. The refe rence range was not u sed to interpret this result as normal/abnor mal. # Lymphs (test code = 2.19 See_Comment [Auto mated message] 414) The system [employer] generated this result transmitted ref erence range: 1.48 - 4 .50 K/L. The refe rence range was not u sed to interpret this result as normal/abnor mal. # Monos (test code = 0.63 See_Comment [Autom ated message] 415) The system [employer] generated this result transmitted ref erence range: 0.00 - 1 .30 K/L. The refe rence range was not u sed to interpret this result as normal/abnor mal. # Eos (test code = 416) 0.14 See_Comment [Au tomated message] The system [employer] generated this result transmitted ref erence range: 0.00 - 0 .50 K/L. The refe rence range was not u sed to interpret this result as normal/abnor mal. # Baso (test code = 417) 0.03 See_Comment [A utomated message] The system [employer] generated this result transmitted ref erence range: 0.00 - 0 .20 K/L. The refe rence range was not u sed to interpret this result as normal/abnor mal. Immature 0 % 0-0 Granulocytes-Relative (test code = 2801) Lab Interpretation (test Abnormal code = 93787-5) [facility] W/PLT COUNT & AUTO [id number] 04:38:00 Test Item Value Reference Range Interpretation Comments WHITE BLOOD CELL COUNT 7.1 K/ L 4.0-10.0 (BEAKER) (test code = 775) RED BLOOD CELL COUNT 3.83 M/ L 4.00-5.00 L (BEAKER) (test code = 761) HEMOGLOBIN (BEAKER) 8.0 GM/DL 12.0-15.5 L (test code = 410) HEMATOCRIT (BEAKER) 26.4 % 36.0-46.0 L (test code = 411) MEAN CORPUSCULAR 68.9 fL 82.0-99.0 L VOLUME (BEAKER) (test code = 753) MEAN CORPUSCULAR 20.9 pg 27.0-33.0 L HEMOGLOBIN (BEAKER) (test code = 751) MEAN CORPUSCULAR 30.3 GM/DL 32.0-36.0 L HEMOGLOBIN CONC (BEAKER) (test code = 752) RED CELL DISTRIBUTION 24.4 % 12.0-15.0 H WIDTH (BEAKER) (test code = 412) PLATELET COUNT 205 K/CU MM 150-430 (BEAKER) (test code = 756) MEAN PLATELET VOLUME Unable to report due (BEAKER) (test code = to abn ormal Platelet 754) population distribution. NUCLEATED RED BLOOD 0 /100 WBC 0-0 CELLS (BEAKER) (test code = 413) NEUTROPHILS RELATIVE 58 % PERCENT (BEAKER) (test code = 429) LYMPHOCYTES RELATIVE 31 % PERCENT (BEAKER) (test code = 430) MONOCYTES RELATIVE 9 % PERCENT (BEAKER) (test code = 431) EOSINOPHILS RELATIVE 2 % PERCENT (BEAKER) (test code = 432) BASOPHILS RELATIVE 0 % PERCENT (BEAKER) (test code = 437) NEUTROPHILS ABSOLUTE 4.12 K/ L 1.80-8.00 COUNT (BEAKER) (test code = 670) LYMPHOCYTES ABSOLUTE 2.19 K/ L 1.48-4.50 COUNT (BEAKER) (test code = 414) MONOCYTES ABSOLUTE 0.63 K/ L 0.00-1.30 COUNT (BEAKER) (test code = 415) EOSINOPHILS ABSOLUTE 0.14 K/ L 0.00-0.50 COUNT (BEAKER) (test code = 416) BASOPHILS ABSOLUTE 0.03 K/ L 0.00-0.20 COUNT (BEAKER) (test code = 417) IMMATURE 0 % 0-0 GRANULOCYTES-RELATIVE PERCENT (BEAKER) (test code = 2801) [id number] 04:32:00 Test Item Value Reference Range Interpretation Comments Magnesium (test code = 1.7 mg/dL 1.5-3 71654-2) DIONI (test code = DIONI) Necktie Maker ID - LITOOperator ID - LITOOperator ID - LITOOperator ID - GRACE Lab Interpretation (test Normal code = 54231-1) [facility] 04:32:00 Test Item Value Reference Range Interpretation Comments MAGNESIUM (BEAKER) (test code = 1.7 mg/dL 1.5-3.0 627) Necktie Maker ID - LITOOperator ID - LITOOperator ID - LITOOperator ID - LITOBasic Metabolic [id number] 04:31:00 Test Item Value Reference Range Interpretation Comments Sodium (test code = 139 meq/L 965-200 5846-2) Potassium (test code 4.0 meq/L 3.6-5.5 = 2823-3) Chloride (test code = 110 meq/L 98-106 H 2075-0) CO2 (test code = 21 meq/L 20-29 2028-9) BUN (test code = 10 mg/dL 10-26 3094-0) Creatinine (test code 0.55 mg/dL 0.5-1.2 = 2160-0) Glucose (test code = 88 mg/dL 70-110 2345-7) Calcium (test code = 8.0 mg/dL 8.5-10.5 L 67030-1) EGFR (test code = 111 mL/min/1.73 [place] [address]-5) m NOT ACCURATE CREATININE CLEARANCE IN PREDICTING GLOMERULAR FILTRATION RATE . ESTIMATED GFR I S NOT APPLICABLE FOR DIALYSIS PATIENTS. DIONI (test code = DIONI) Necktie Maker ID - LITOOperator ID - LITOOperator ID - LITOOperator ID - LITOOperator ID - LITOOperator ID - LITOOperator ID - LITOOperator ID - LITOOperator ID - GRACE Lab Interpretation Abnormal (test code = 79986-6) [facility] [id number] 04:31:00 Test Item Value Reference Range Interpretation Comments SODIUM (BEAKER) 139 meq/L 135-148 (test code = 381) POTASSIUM (BEAKER) 4.0 meq/L 3.6-5.5 (test code = 379) CHLORIDE (BEAKER) 110 meq/L 98-106 H (test code = 382) CO2 (BEAKER) (test 21 meq/L 20-29 code = 355) BLOOD UREA NITROGEN 10 mg/dL 10-26 (BEAKER) (test code = 354) CREATININE (BEAKER) 0.55 mg/dL 0.50-1.20 (test code = 358) GLUCOSE RANDOM 88 mg/dL 70-110 (BEAKER) (test code = 652) CALCIUM (BEAKER) 8.0 mg/dL 8.5-10.5 L (test code = 697) EGFR (BEAKER) (test 111 mL/min/1.73 ESTIM ATED GFR IS code = 1092) sq m NOT ACCURATE CREATININE CLEARANCE IN PREDICTING GLOMERULAR FILTRATION RATE . ESTIMATED GFR I S NOT APPLICABLE FOR DIALYSIS PATIEN TS. Necktie Maker ID - LITOOperator ID - LITOOperator ID - LITOOperator ID - LITOOperator ID - LITOOperator ID - LITOOperator ID - LITOOperator ID - LITOOperator ID - [id number] 04:29:00 Test Item Value Reference Range Interpretation Comments Phosphorus (test code = 3.8 mg/dL 2.5-4.5 2777-1) DIONI (test code = DIONI) Necktie Maker ID - GRACE Lab Interpretation (test Normal code = 70278-4) [facility] 04:29:00 Test Item Value Reference Range Interpretation Comments PHOSPHORUS (BEAKER) (test code = 3.8 mg/dL 2.5-4.5 604) Necktie Maker ID - [id number] 06:06:00 Test Item Value Reference Range Interpretation Comments MAGNESIUM (BEAKER) (test code = 1.9 mg/dL 1.5-3.0 627) Necktie Maker ID - [id number] ID - [id number] ID - [id number] ID - [id number] METABOLIC [id number] 06:05:00 Test Item Value Reference Range Interpretation Comments SODIUM (BEAKER) 140 meq/L 135-148 (test code = 381) POTASSIUM (BEAKER) 4.1 meq/L 3.6-5.5 (test code = 379) CHLORIDE (BEAKER) 111 meq/L 98-106 H (test code = 382) CO2 (BEAKER) (test 23 meq/L 20-29 code = 355) BLOOD UREA NITROGEN 9 mg/dL 10-26 L (BEAKER) (test code = 354) CREATININE (BEAKER) 0.59 mg/dL 0.50-1.20 (test code = 358) GLUCOSE RANDOM 82 mg/dL 70-110 (BEAKER) (test code = 652) CALCIUM (BEAKER) 8.1 mg/dL 8.5-10.5 L (test code = 697) EGFR (BEAKER) (test 103 mL/min/1.73 ESTIM ATED GFR IS code = 1092) sq m NOT ACCURATE CREATININE CLEARANCE IN PREDICTING GLOMERULAR FILTRATION RATE . ESTIMATED GFR I S NOT APPLICABLE FOR DIALYSIS PATIEN TS. Necktie Maker ID - [id number] ID - [id number] ID - [id number] ID - [id number] ID - [id number] ID - [id number] ID - [id number] ID - [id number] ID - [id number] 06:03:00 Test Item Value Reference Range Interpretation Comments PHOSPHORUS (BEAKER) (test code = 3.7 mg/dL 2.5-4.5 604) Necktie Maker ID - [id number] W/PLT COUNT & AUTO [id number] 05:39:00 Test Item Value Reference Range Interpretation Comments WHITE BLOOD CELL COUNT 8.0 K/ L 4.0-10.0 (BEAKER) (test code = 775) RED BLOOD CELL COUNT 3.87 M/ L 4.00-5.00 L (BEAKER) (test code = 761) HEMOGLOBIN (BEAKER) 8.0 GM/DL 12.0-15.5 L (test code = 410) HEMATOCRIT (BEAKER) 26.3 % 36.0-46.0 L (test code = 411) MEAN CORPUSCULAR 68.0 fL 82.0-99.0 L VOLUME (BEAKER) (test code = 753) MEAN CORPUSCULAR 20.7 pg 27.0-33.0 L HEMOGLOBIN (BEAKER) (test code = 751) MEAN CORPUSCULAR 30.4 GM/DL 32.0-36.0 L HEMOGLOBIN CONC (BEAKER) (test code = 752) RED CELL DISTRIBUTION 23.8 % 12.0-15.0 H WIDTH (BEAKER) (test code = 412) PLATELET COUNT 214 K/CU MM 150-430 (BEAKER) (test code = 756) MEAN PLATELET VOLUME Unable to report due (BEAKER) (test code = to abn ormal Platelet 754) population distribution. NUCLEATED RED BLOOD 0 /100 WBC 0-0 CELLS (BEAKER) (test code = 413) NEUTROPHILS RELATIVE 61 % PERCENT (BEAKER) (test code = 429) LYMPHOCYTES RELATIVE 29 % PERCENT (BEAKER) (test code = 430) MONOCYTES RELATIVE 8 % PERCENT (BEAKER) (test code = 431) EOSINOPHILS RELATIVE 1 % PERCENT (BEAKER) (test code = 432) BASOPHILS RELATIVE 0 % PERCENT (BEAKER) (test code = 437) NEUTROPHILS ABSOLUTE 4.87 K/ L 1.80-8.00 COUNT (BEAKER) (test code = 670) LYMPHOCYTES ABSOLUTE 2.36 K/ L 1.48-4.50 COUNT (BEAKER) (test code = 414) MONOCYTES ABSOLUTE 0.65 K/ L 0.00-1.30 COUNT (BEAKER) (test code = 415) EOSINOPHILS ABSOLUTE 0.11 K/ L 0.00-0.50 COUNT (BEAKER) (test code = 416) BASOPHILS ABSOLUTE 0.03 K/ L 0.00-0.20 COUNT (BEAKER) (test code = 417) IMMATURE 0 % 0-0 GRANULOCYTES-RELATIVE PERCENT (BEAKER) (test code = 2801) BASIC METABOLIC [id number] 05:30:00 Test Item Value Reference Range Interpretation Comments SODIUM (BEAKER) 139 meq/L 135-148 (test code = 381) POTASSIUM (BEAKER) 3.5 meq/L 3.6-5.5 L (test code = 379) CHLORIDE (BEAKER) 108 meq/L 98-106 H (test code = 382) CO2 (BEAKER) (test 21 meq/L 20-29 code = 355) BLOOD UREA NITROGEN 6 mg/dL 10-26 L (BEAKER) (test code = 354) CREATININE (BEAKER) 0.54 mg/dL 0.50-1.20 (test code = 358) GLUCOSE RANDOM 78 mg/dL 70-110 (BEAKER) (test code = 652) CALCIUM (BEAKER) 7.9 mg/dL 8.5-10.5 L (test code = 697) EGFR (BEAKER) (test 114 mL/min/1.73 ESTIM ATED GFR IS code = 1092) sq m NOT ACCURATE CREATININE CLEARANCE IN PREDICTING GLOMERULAR FILTRATION RATE . ESTIMATED GFR I S NOT APPLICABLE FOR DIALYSIS PATIEN TS. Necktie Maker ID - NALINIOperator ID - NALINIOperator ID - NALINIOperator ID - NALINIOperator ID - NALINIOperator ID - NALINIOperator ID - NALINIOperator ID - NALINIOperator ID - NALINIOperator ID - [id number] 05:29:00 Test Item Value Reference Range Interpretation Comments MAGNESIUM (BEAKER) (test code = 1.6 mg/dL 1.5-3.0 627) Necktie Maker ID - NALINIOperator ID - NALINIOperator ID - NALINIOperator ID - TAVO [id number] 05:26:00 Test Item Value Reference Range Interpretation Comments PHOSPHORUS (BEAKER) (test code = 3.6 mg/dL 2.5-4.5 604) Necktie Maker ID - NALINICBC W/PLT COUNT & AUTO [id number] 05:17:00 Test Item Value Reference Range Interpretation Comments WHITE BLOOD CELL COUNT 8.2 K/ L 4.0-10.0 (BEAKER) (test code = 775) RED BLOOD CELL COUNT 4.05 M/ L 4.00-5.00 (BEAKER) (test code = 761) HEMOGLOBIN (BEAKER) 8.4 GM/DL 12.0-15.5 L (test code = 410) HEMATOCRIT (BEAKER) 27.2 % 36.0-46.0 L (test code = 411) MEAN CORPUSCULAR 67.2 fL 82.0-99.0 L VOLUME (BEAKER) (test code = 753) MEAN CORPUSCULAR 20.7 pg 27.0-33.0 L HEMOGLOBIN (BEAKER) (test code = 751) MEAN CORPUSCULAR 30.9 GM/DL 32.0-36.0 L HEMOGLOBIN CONC (BEAKER) (test code = 752) RED CELL DISTRIBUTION 23.3 % 12.0-15.0 H WIDTH (BEAKER) (test code = 412) PLATELET COUNT 213 K/CU MM 150-430 (BEAKER) (test code = 756) MEAN PLATELET VOLUME Unable to report due (BEAKER) (test code = to abn ormal Platelet 754) population distribution. NUCLEATED RED BLOOD 0 /100 WBC 0-0 CELLS (BEAKER) (test code = 413) NEUTROPHILS RELATIVE 74 % PERCENT (BEAKER) (test code = 429) LYMPHOCYTES RELATIVE 16 % PERCENT (BEAKER) (test code = 430) MONOCYTES RELATIVE 8 % PERCENT (BEAKER) (test code = 431) EOSINOPHILS RELATIVE 2 % PERCENT (BEAKER) (test code = 432) BASOPHILS RELATIVE 0 % PERCENT (BEAKER) (test code = 437) NEUTROPHILS ABSOLUTE 6.03 K/ L 1.80-8.00 COUNT (BEAKER) (test code = 670) LYMPHOCYTES ABSOLUTE 1.27 K/ L 1.48-4.50 L COUNT (BEAKER) (test code = 414) MONOCYTES ABSOLUTE 0.66 K/ L 0.00-1.30 COUNT (BEAKER) (test code = 415) EOSINOPHILS ABSOLUTE 0.13 K/ L 0.00-0.50 COUNT (BEAKER) (test code = 416) BASOPHILS ABSOLUTE 0.03 K/ L 0.00-0.20 COUNT (BEAKER) (test code = 417) IMMATURE 0 % 0-0 GRANULOCYTES-RELATIVE PERCENT (BEAKER) (test code = 2801) POC-Glucose [id number] 00:11:00 Test Item Value Reference Range Interpretation Comments POC-Glucose Meter (test 91 mg/dL 70-110 : No tified RN/MD: code = 1538) TESTED AT [facility] [address] [facility] [address]: Necktie Maker/Techni pollo ID = [id number] for Arabella Up Lab Interpretation (test Normal code = 87173-2) [facility] [id number] 00:11:00 Test Item Value Reference Range Interpretation Comments POC-GLUCOSE METER 91 mg/dL 70-110 : Notified RN/MD: TESTED (BEAKER) (test code = AT [facility] [address]) [facility] [address]: Necktie Maker/Techni pollo ID = [id number] for Prov ost, Arabella POCT-GLUCOSE [id number] 18:11:00 Test Item Value Reference Range Interpretation Comments POC-GLUCOSE METER 80 mg/dL 70-110 : Notified RN/MD: TESTED ([facility]) (test code = AT [facility] L [address]) [facility] [address]: Necktie Maker/Techni pollo ID = [id number] for Bethel h, Lorita POCT-GLUCOSE [id number] 12:32:00 Test Item Value Reference Range Interpretation Comments POC-GLUCOSE METER 75 mg/dL 70-110 : Notified RN/MD: TESTED ([facility]) (test code = AT [facility] L [address]) [place] [id number]: Necktie Maker/Techni pollo ID = [id number] for Bethel h, Lorita POCT-GLUCOSE [id number] 12:14:00 Test Item Value Reference Range Interpretation Comments POC-GLUCOSE METER 79 mg/dL 70-110 : TESTED A T [facility] [address] ([facility]) (test code = [address] [facility], [address]) [place] [id number]: Necktie Maker/Techni pollo ID = [id number] for Bethel h, Lorita [id number] 09:54:00 Test Item Value Reference Range Interpretation Comments PTT (test code = 63.8 See_Comment H Final Infor mation 61724-9) (Auto Output) [Automated mess age] The system [employer] generated this result transmitted ref erence range: 23.0 - 3 5.0 seconds. The reference range was not used to int erpret this result as normal/abnormal . Lab Interpretation (test Abnormal code = 77013-5) [facility] 09:54:00 Test Item Value Reference Range Interpretation Comments PARTIAL THROMBOPLASTIN 63.8 seconds 23.0-35.0 H Final Information TIME (BEAKER) (test (Auto Ou tput) code = 760) [id number] 07:53:00 Test Item Value Reference Range Interpretation Comments MAGNESIUM (BEAKER) 1.8 mg/dL 1.5-3.0 Specimen slightly (test code = 627) hemolyzed Necktie Maker ID - [id number] ID - [id number] ID - [id number] ID - zdxs12 [id number] 07:51:00 Test Item Value Reference Range Interpretation Comments PHOSPHORUS (BEAKER) 3.4 mg/dL 2.5-4.5 Specimen slightly (test code = 604) hemolyzed Necktie Maker ID - [id number] METABOLIC [id number] 05:16:00 Test Item Value Reference Range Interpretation Comments SODIUM (BEAKER) 140 meq/L 135-148 (test code = 381) POTASSIUM (BEAKER) 3.7 meq/L 3.6-5.5 (test code = 379) CHLORIDE (BEAKER) 110 meq/L 98-106 H (test code = 382) CO2 (BEAKER) (test 23 meq/L 20-29 code = 355) BLOOD UREA NITROGEN 7 mg/dL 10-26 L (BEAKER) (test code = 354) CREATININE (BEAKER) 0.57 mg/dL 0.50-1.20 (test code = 358) GLUCOSE RANDOM 77 mg/dL 70-110 (BEAKER) (test code = 652) CALCIUM (BEAKER) 8.1 mg/dL 8.5-10.5 L (test code = 697) EGFR (BEAKER) (test 107 mL/min/1.73 ESTIM ATED GFR IS code = 1092) sq m NOT ACCURATE CREATININE CLEARANCE IN PREDICTING GLOMERULAR FILTRATION RATE . ESTIMATED GFR I S NOT APPLICABLE FOR DIALYSIS PATIEN TS. Necktie Maker ID - [id number] ID - [id number] ID - [id number] ID - [id number] ID - [id number] ID - XKTT07Bzhkvqep ID - YRHO84Fmquagge ID - VORD20Itwnvijr ID - BSPF49Glnzfwph ID - [id number] ID - SMZU73Nzftbiui ID - PEEE05Hnyynyct ID - [id number] (hemogram only)2020-09-01 04:39:00 Test Item Value Reference Range Interpretation Comments WBC (test code = 6690-2) 8.1 See_Comment [A utomated message] The system [employer] generated this result transmitted ref erence range: 4.0 - 10 .0 K/L. The refe rence range was not u sed to interpret this result as normal/abnor mal. RBC (test code = 789-8) 3.77 See_Comment L [Au tomated message] The system [employer] generated this result transmitted ref erence range: 4.00 - 5 .00 M/L. The refe rence range was not u sed to interpret this result as normal/abnor mal. MCHC (test code = 786-4) 30.5 See_Comment L [A utomated message] The system [employer] generated this result transmitted ref erence range: 32.0 - 3 6.0 GM/DL. The refe rence range was not u sed to interpret this result as normal/abnor mal. Hematocrit (test code = 25.6 % 36-46 L 4544-3) MCV (test code = 787-2) 67.9 fL 82-99 L MCH (test code = 785-6) 20.7 pg 27-33 L RDW (test code = 788-0) 22.7 % 12-15 H Platelets (test code = 201 See_Comment [Aut omated message] 777-3) The system [employer] generated this result transmitted ref erence range: 150 - 43 0 K/CU MM. The referen ce range was not u sed to interpret this result as normal/abnor mal. nRBC (test code = 413) 0 See_Comment [Aut omated message] The system [employer] generated this result transmitted ref erence range: 0 - 0 /1 00 WBC. The refere nce range was not u sed to interpret this result as normal/abnor mal. Lab Interpretation (test Abnormal code = 17689-8) [facility] (HEMOGRAM ONLY)2020-09-01 04:39:00 Test Item Value Reference Range Interpretation Comments WHITE BLOOD CELL COUNT (BEAKER) 8.1 K/ L 4.0-10.0 (test code = 775) RED BLOOD CELL COUNT (BEAKER) 3.77 M/ L 4.00-5.00 L (test code = 761) HEMOGLOBIN (BEAKER) (test code = 7.8 GM/DL 12.0-15.5 L 410) HEMATOCRIT (BEAKER) (test code = 25.6 % 36.0-46.0 L 411) MEAN CORPUSCULAR VOLUME (BEAKER) 67.9 fL 82.0-99.0 L (test code = 753) MEAN CORPUSCULAR HEMOGLOBIN 20.7 pg 27.0-33.0 L (BEAKER) (test code = 751) MEAN CORPUSCULAR HEMOGLOBIN CONC 30.5 GM/DL 32.0-36.0 L (BEAKER) (test code = 752) RED CELL DISTRIBUTION WIDTH 22.7 % 12.0-15.0 H (BEAKER) (test code = 412) PLATELET COUNT (BEAKER) (test 201 K/CU MM 150-430 code = 756) NUCLEATED RED BLOOD CELLS 0 /100 WBC 0-0 (BEAKER) (test code = 413) [id number] 01:54:00 Test Item Value Reference Range Interpretation Comments PARTIAL THROMBOPLASTIN 62.6 seconds 23.0-35.0 H Final Information TIME (BEAKER) (test (Auto Ou tput) code = 760) Prepare Leuko-Red [id number] 23:54:00 Test Item Value Reference Range Interpretation Comments CROSSMATCH (test code = 2264) COMPATIBLE Unit ABO (test code = O Pos 2749123) UNIT NUMBER (test code = [id number] 934-0) Status (test code = 2643604) TX_TIMEINCHART Blood Bank Product (test code RED BLOOD CELLS = 2263) PRODUCT CODE (test code = W1199G27 933-2) 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 Procedure Type of Study TTE procedure:2DECHO W DOPPLER(CW/PW/COLOR) (Routine) Indications:Acute ChestPain/ Suspected CAD.Clinical HistoryCIRRHOSISHeight: 64 inches Weight: 51.26 kg (113 lbs) BSA: 1.53 m^2 BMI: 19.4 kg/m^2HR: 59 bpm BP: 139/84 mmHg Summary Low normal LV systolic function with an estimated LVEF of 50%. There is mild hypokinesis of the base to mid inferior wall. Grade 1 diastolic dysfunction. Normal RV size and systolic function. No evidence of pulmonary hypertension; estimated PA systolic pressure of 25 mm Hg, assuming an RA pressure of 3 mm Hg. No pericardial effusion. No previous study to compare from. Signature Findings Left Ventricle Normal LV wall thickness. Left ventricular size is normal. Low normal overall left ventricular systolic function. The visual ejection fraction was estimated 50 %. There is mild hypokinesis of the baseto mid inferior wall. Grade 1 diastolic dysfunction (impaired relaxation and low-normal LA pressure). Left Atrium LA size is normal . LA index <29 ml/m2. Right Ventricle The right ventricular chamber size and systolic function are within normal limits. Right Atrium RA size is normal. Aortic Valve The aortic valve is not well visualized. There is no aortic stenosis. There is no aortic regurgitation. Mitral Valve Normal MV structure. Trace mitral regurgitation. Tricuspid Valve The tricuspid valve is not well visualized. Mild tricuspid regurgitation. Estimated peak systolic PA pressure is 25-30 mmHg (normal range) . Pulmonic Valve No evidence of pulmonary regurgitation. Aorta Aortic root size (SInus of Valsalva diameter) is indeterminate (not well seen) . Pericardium No pericardial effusion is visualized. IVC/SVC/PA/PV/Pleural The inferior vena cava size is normal . Chambers/Structures Left Atrium LA Dimension: 3.49 cm LA Area: 14.75 cm^2 LA Volume: 51.1 ml LA Vol. Index: 33 ml/m^2 Left Ventricle LVIDd: 4.32 cm LVEDV:84.13 ml LVIDs: 3.12 cm LVESV:38.43 ml LV Septum Diastolic: 1.42 cm LV Septum Systolic: 2 cm LVLength: 7.86 cm LV PW Diastolic: 1.1 cm LV FS: 27.8 % LV PW Systolic: 1.18 cm LVOT Diameter: 1.75 cm LVEF: 54.3 % Right Atrium RA Systolic Pressure: 10 mmHg Right Ventricle RV Systolic Pressure: 40.4 mmHg Aorta Ao Root S of Pau.: 2.41 cm Doppler/Quantitative Measurements Mitral Valve MV Peak E-Wave: 1.19 m/s MV Peak A-Wave: 0.22 m/s P1/2t: 108.7 msec E/A Ratio: 5.48 Peak Velocity: 1.21 m/s Peak Gradient: 5.64 mmHg MeanVelocity: 0.55 m/s Deceleration Time: 334.7 msec Mean Gradient: 1.76 mmHg Area (continuity): 1.49 cm^2 MV Area (PHT): 2.02 cm^2 MR Velocity: 5.04 m/s PISA Radius: 0.55cm MV EROA (PISA): 1.9 cm^2 Alias Velocity: 0.32 m/s MR Flow Rate (PISA): 60.53 ml/s MR ERO (PISA): 0.12 cm^2 MV VTI: 26.5 cm MV Josse. Peak: Tissue Doppler E' Septal Velocity: 0.08 m/s E' Lateral Velocity: 0.08 m/s Aortic Valve Peak Velocity: 1.21 m/s Mean Velocity: 0.83 m/s Peak Gradient: 5.81 mmHg Mean Gradient: 3.2 mmHg AVArea (continuity): 1.31 cm^2 AV VTI: 30.12 cm Cusp Separation: 1.55 cm AV DVI: 0.54 LVOT Peak Velocity: 0.8 m/s Peak Gradient: 2.6 mmHg Mean Velocity: 0.44 m/s Mean Gradient: 0.98 mmHg LVOT Diameter: 1.75 cm LVOT VTI: 16.39 cm LVOT Area: 2.41 cm^2 LVOT SV:39.4 ml LVOT CO: 2.32 l/min LVOT CI: 1.52 l/min/m^2 Tricuspid Valve Estimated RVSP: 41.26 mmHg Estimated RAP: 10 mmHg TR Velocity: 2.76 m/s TR Gradient: 30.4 mmHg Pulmonic Valve Peak Velocity: 0.96 m/s Peak Gradient: 3.72 mmHg Estimated PASP[facility] [id number] 07:33:00 Test Item Value Reference Range Interpretation Comments Troponin I (test code = 5.78 ng/mL 0-0.15 97469-0) DIONI (test code = DIONI) Troponin I [...] disease, and persistent tachyarrhythmia.Opera tor ID - [id number] Lab Interpretation (test Abnormal code = 15033-6) [facility] [id number] 07:33:00 Test Item Value Reference Range Interpretation Comments TROPONIN I (BEAKER) (test code = 5.78 ng/mL 0.00-0.15 397) Troponin I (TnI) levels must be [...] failure, acidosis, acute neurological disease, and persistent tachyarrhythmia.Necktie Maker ID - [id number] 07:29:00 Test Item Value Reference Range Interpretation Comments MAGNESIUM (BEAKER) 1.8 mg/dL 1.5-3.0 Specimen slightly (test code = 627) hemolyzed Necktie Maker ID - [id number] ID - [id number] ID - [id number] ID - zdxs12 [id number] 07:27:00 Test Item Value Reference Range Interpretation Comments PHOSPHORUS (BEAKER) 3.0 mg/dL 2.5-4.5 Specimen slightly (test code = 604) hemolyzed Necktie Maker ID - [id number] 07:04:00 Test Item Value Reference Range Interpretation Comments PARTIAL THROMBOPLASTIN 38.5 seconds 23.0-35.0 H Final Information TIME (BEAKER) (test (Auto Ou tput) code = 760) Comprehensive metabolic [id number] 05:38:00 Test Item Value Reference Interpretation Comments Range Protein, Total 5.5 See_Comment L Specimen (test code = slightly 2885-2) hemolyzed [Automated message] The system which generated this result transmitted reference range : 6.0 - 8.5 gm/dL . The reference range was not used to interpret this result as normal/abnormal . Albumin (test code 2.6 g/dL 3.5-5 L Specimen = 83254-9) slightly hemolyzed Alkaline 53 U/L 30-115 Phosphatase (test code = 6768-6) Total Bilirubin 0.9 mg/dL 0.1-1.2 Specimen (test code = slightly 1975-2) hemolyzed Sodium (test code = 138 meq/L 306-175 7272-2) Potassium (test 4.4 meq/L 3.6-5.5 Specimen code = 2823-3) slightly hemolyzed Chloride (test code 109 meq/L 98-106 H = 2075-0) CO2 (test code = 21 meq/L 20-29 2027-9) BUN (test code = 6 mg/dL 10-26 L 3094-0) Creatinine (test 0.60 mg/dL 0.5-1.2 Specimen code = 2160-0) slightly hemolyzed Glucose (test code 100 mg/dL 70-110 = 2345-7) Calcium (test code 7.6 mg/dL 8.5-10.5 L = 92801-1) AST (test code = 52 U/L 5-40 H Specimen 1920-8) slightly hemolyzed ALT (test code = 33 U/L 5-50 Specimen 1742-6) slightly hemolyzed EGFR (test code = 101 mL/min/1.73 [place] [address]-0) m NOT ACCURATE CREATININE CLEARANCE IN PREDICTING GLOMERULAR FILTRATION RATE . ESTIMATED GFR I S NOT APPLICABLE FOR DIALYSIS PATIENTS. DIONI (test code = Necktie Maker ID - IDONI) RESORIANOperator ID - RESORIANOperator ID - RESORIANOperator ID - RESORIANOperator ID - RESORIANOperator ID - RESORIANOperator ID - RESORIANOperator ID - RESORIANOperator ID - RESORIANOperator ID - RESORIANOperator ID - RESORIANOperator ID - RESORIANOperator ID - RESORIANOperator ID - RESORIANOperator ID - RESORIANOperator ID - RESORIANOperator ID - RESORIANOperator ID - RESORIANOperator ID - RESORIAN Lab Interpretation Abnormal (test code = 87171-2) [facility] [id number] 05:38:00 Test Item Value Reference Range Interpretation Comments TOTAL PROTEIN 5.5 gm/dL 6.0-8.5 L Specimen sligh tly (BEAKER) (test code = hemoly zed 770) ALBUMIN (BEAKER) 2.6 g/dL 3.5-5.0 L Specimen sl ightly (test code = 1145) hemolyzed ALKALINE PHOSPHATASE 53 U/L 30-115 (BEAKER) (test code = 346) BILIRUBIN TOTAL 0.9 mg/dL 0.1-1.2 Specimen sli ghtly (BEAKER) (test code = hemoly zed 377) SODIUM (BEAKER) (test 138 meq/L 135-148 code = 381) POTASSIUM (BEAKER) 4.4 meq/L 3.6-5.5 Specimen slightly (test code = 379) hemolyzed CHLORIDE (BEAKER) 109 meq/L 98-106 H (test code = 382) CO2 (BEAKER) (test 21 meq/L 20-29 code = 355) BLOOD UREA NITROGEN 6 mg/dL 10-26 L (BEAKER) (test code = 354) CREATININE (BEAKER) 0.60 mg/dL 0.50-1.20 Specimen slightly (test code = 358) hemolyzed GLUCOSE RANDOM 100 mg/dL 70-110 (BEAKER) (test code = 652) CALCIUM (BEAKER) 7.6 mg/dL 8.5-10.5 L (test code = 697) AST (SGOT) (BEAKER) 52 U/L 5-40 H Specimen slightly (test code = 353) hemolyzed ALT (SGPT) (BEAKER) 33 U/L 5-50 Specimen slightly (test code = 347) hemolyzed EGFR (BEAKER) (test 101 ESTIMATE D GFR IS code = 1092) mL/min/1.73 sq NOT ACCURA TE m CREATININE CLEARANCE IN PREDICTING GLOMERULAR FILTRATION RATE . ESTIMATED GFR I S NOT APPLICABLE FOR DIALYSIS PATIEN TS. Necktie Maker ID - RESORIANOperator ID - RESORIANOperator ID - RESORIANOperator ID - RESORIANOperator ID - RESORIANOperator ID - RESORIANOperator ID - RESORIANOperator ID - RESORIANOperator ID - RESORIANOperator ID - RESORIANOperator ID - RESORIANOperator ID - RESORIANOperator ID - RESORIANOperator ID - RESORIANOperator ID - RESORIANOperator ID - RESORIANOperator ID - RESORIANOperator ID - RESORIANOperator ID - RESORIANCBC (HEMOGRAM ONLY)2020-08-31 05:22:00 Test Item Value Reference Range Interpretation Comments WHITE BLOOD CELL COUNT (BEAKER) 7.8 K/ L 4.0-10.0 (test code = 775) RED BLOOD CELL COUNT (BEAKER) 3.91 M/ L 4.00-5.00 L (test code = 761) HEMOGLOBIN (BEAKER) (test code = 8.3 GM/DL 12.0-15.5 L 410) HEMATOCRIT (BEAKER) (test code = 26.5 % 36.0-46.0 L 411) MEAN CORPUSCULAR VOLUME (BEAKER) 67.8 fL 82.0-99.0 L (test code = 753) MEAN CORPUSCULAR HEMOGLOBIN 21.2 pg 27.0-33.0 L (BEAKER) (test code = 751) MEAN CORPUSCULAR HEMOGLOBIN CONC 31.3 GM/DL 32.0-36.0 L (BEAKER) (test code = 752) RED CELL DISTRIBUTION WIDTH 22.1 % 12.0-15.0 H (BEAKER) (test code = 412) PLATELET COUNT (BEAKER) (test 188 K/CU MM 150-430 code = 756) NUCLEATED RED BLOOD CELLS 0 /100 WBC 0-0 (BEAKER) (test code = 413) TROPONIN [id number] 01:21:00 Test Item Value Reference Range Interpretation Comments TROPONIN I (BEAKER) (test code = 7.43 ng/mL 0.00-0.15 HH 397) Troponin I (TnI) levels must be [...] failure, acidosis, acute neurological disease, and persistent tachyarrhythmia.Necktie Maker ID - [id number] 22:21:00 Test Item Value Reference Range Interpretation Comments PARTIAL THROMBOPLASTIN 33.0 seconds 23.0-35.0 Final Information TIME (BEAKER) (test (Auto Ou tput) code = 760) [id number] 14:16:00 Test Item Value Reference Range Interpretation Comments PARTIAL THROMBOPLASTIN 24.6 seconds 23.0-35.0 Final Information TIME (BEAKER) (test (Auto Ou tput) code = 760) Platelet [id number] 14:02:00 Test Item Value Reference Range Interpretation Comments Platelets (test code = 196 See_Comment [Aut omated message] 777-3) The system [employer] generated this result transmitted ref erence range: 150 - 43 0 K/CU MM. The referen ce range was not u sed to interpret this result as normal/abnor mal. Lab Interpretation (test Normal code = 83693-1) [facility] [id number] 14:02:00 Test Item Value Reference Range Interpretation Comments PLATELET COUNT (BEAKER) (test 196 K/CU MM 150-430 code = 756) Occult blood, [id number] 10:57:00 Test Item Value Reference Range Interpretation Comments Occult blood (test code = 2335-8) Negative Negative Lab Interpretation (test code = Normal 71086-9) [facility], [id number] 10:57:00 Test Item Value Reference Range Interpretation Comments FECAL OCCULT BLOOD (BEAKER) (test Negative Negative code = 618) [id number] 09:29:00 Test Item Value Reference Range Interpretation Comments MAGNESIUM (BEAKER) (test code = 1.8 mg/dL 1.5-3.0 627) Necktie Maker ID - [id number] [id number] 05:52:00 Test Item Value Reference Range Interpretation Comments Triglycerides (test 47 mg/dL code = 2571-8) Cholesterol (test code 96 mg/dL = 2093-3) HDL (test code = 27 mg/dL 2085-9) LDL Calculated (test 60 mg/dL code = 32539-7) DIONI (test code = DIONI) Triglyceride Reference Range: Low Risk <150 Borderline 150-199 High Risk 200-499 Very High Risk >=500 Cholesterol Reference Range: Low Risk <200 Borderline 200-239 High Risk >240 HDL Cholesterol Reference Range: Low Risk >=60 High Risk <40 LDL Cholesterol Reference Range: Optimal <100 Near Optimal 100-129 Borderline 130-159 High 160-189 Very High >=190 Necktie Maker ID - [id number] ID - [id number] ID - [id number] ID - [id number] ID - [id number] ID [id number] [facility]2020-08-30 05:52:00 Test Item Value Reference Range Interpretation Comments BNP (test code = 87229-1) 893 pg/mL 0-100 H DIONI (test code = DIONI) Necktie Maker ID - [id number] Lab Interpretation (test Abnormal code = 40443-7) [facility]2020-08-30 05:52:00 Test Item Value Reference Range Interpretation Comments B-TYPE NATRIURETIC PEPTIDE (BEAKER) 893 pg/mL 0-100 H (test code = 700) Necktie Maker ID - [id number] 05:52:00 Test Item Value Reference Range Interpretation Comments TRIGLYCERIDES (BEAKER) (test code = 47 mg/dL 540) CHOLESTEROL (BEAKER) (test code = 96 mg/dL 631) HDL CHOLESTEROL (BEAKER) (test code 27 mg/dL = 976) LDL CHOLESTEROL CALCULATED (BEAKER) 60 mg/dL (test code = 633) Triglyceride Reference Range: Low Risk <150 Borderline 150-199 High Risk 200-499 Very High Risk >=500Cholesterol Reference Range: Low Risk <200 Borderline 200-239 High Risk >240HDL Cholesterol Reference Range: Low Risk >=60 High Risk <40LDL Cholesterol Reference Range: Optimal <100 Near Optimal 100-129 Borderline 130-159 High 160-189 Very High >=190 Necktie Maker ID - [id number] ID - [id number] ID - [id number] ID - [id number] ID - [id number] ID - [id number] TROPONIN [id number] 05:49:00 Test Item Value Reference Range Interpretation Comments TROPONIN I (BEAKER) (test code = 6.85 ng/mL 0.00-0.15 397) Troponin I (TnI) levels must be [...] failure, acidosis, acute neurological disease, and persistent tachyarrhythmia.Necktie Maker ID - [id number] METABOLIC [id number] 05:46:00 Test Item Value Reference Range Interpretation Comments SODIUM (BEAKER) 136 meq/L 135-148 (test code = 381) POTASSIUM (BEAKER) 3.2 meq/L 3.6-5.5 L (test code = 379) CHLORIDE (BEAKER) 105 meq/L 98-106 (test code = 382) CO2 (BEAKER) (test 23 meq/L 20-29 code = 355) BLOOD UREA NITROGEN 4 mg/dL 10-26 L (BEAKER) (test code = 354) CREATININE (BEAKER) 0.61 mg/dL 0.50-1.20 (test code = 358) GLUCOSE RANDOM 213 mg/dL 70-110 H (BEAKER) (test code = 652) CALCIUM (BEAKER) 7.9 mg/dL 8.5-10.5 L (test code = 697) EGFR (BEAKER) (test 99 mL/min/1.73 ESTIMA MIRACLE GFR IS code = 1092) sq m NOT ACCURATE CREATININE CLEARANCE IN PREDICTING GLOMERULAR FILTRATION RATE . ESTIMATED GFR I S NOT APPLICABLE FOR DIALYSIS PATIEN TS. Necktie Maker ID - [id number] ID - [id number] ID - [id number] ID - [id number] ID - [id number] ID - [id number] ID - [id number] ID - [id number] ID - [id number] ID - [id number] W/PLT COUNT & AUTO [id number] 05:35:00 Test Item Value Reference Range Interpretation Comments WHITE BLOOD CELL COUNT 7.1 K/ L 4.0-10.0 (BEAKER) (test code = 775) RED BLOOD CELL COUNT 4.03 M/ L 4.00-5.00 (BEAKER) (test code = 761) HEMOGLOBIN (BEAKER) 8.3 GM/DL 12.0-15.5 L (test code = 410) HEMATOCRIT (BEAKER) 27.3 % 36.0-46.0 L (test code = 411) MEAN CORPUSCULAR 67.7 fL 82.0-99.0 L VOLUME (BEAKER) (test code = 753) MEAN CORPUSCULAR 20.6 pg 27.0-33.0 L HEMOGLOBIN (BEAKER) (test code = 751) MEAN CORPUSCULAR 30.4 GM/DL 32.0-36.0 L HEMOGLOBIN CONC (BEAKER) (test code = 752) RED CELL DISTRIBUTION 22.2 % 12.0-15.0 H WIDTH (BEAKER) (test code = 412) PLATELET COUNT 178 K/CU MM 150-430 (BEAKER) (test code = 756) MEAN PLATELET VOLUME Unable to report due (BEAKER) (test code = to abn ormal Platelet 754) population distribution. NUCLEATED RED BLOOD 0 /100 WBC 0-0 CELLS (BEAKER) (test code = 413) NEUTROPHILS RELATIVE 62 % PERCENT (BEAKER) (test code = 429) LYMPHOCYTES RELATIVE 29 % PERCENT (BEAKER) (test code = 430) MONOCYTES RELATIVE 9 % PERCENT (BEAKER) (test code = 431) EOSINOPHILS RELATIVE 0 % PERCENT (BEAKER) (test code = 432) BASOPHILS RELATIVE 0 % PERCENT (BEAKER) (test code = 437) NEUTROPHILS ABSOLUTE 4.35 K/ L 1.80-8.00 COUNT (BEAKER) (test code = 670) LYMPHOCYTES ABSOLUTE 2.05 K/ L 1.48-4.50 COUNT (BEAKER) (test code = 414) MONOCYTES ABSOLUTE 0.60 K/ L 0.00-1.30 COUNT (BEAKER) (test code = 415) EOSINOPHILS ABSOLUTE 0.02 K/ L 0.00-0.50 COUNT (BEAKER) (test code = 416) BASOPHILS ABSOLUTE 0.02 K/ L 0.00-0.20 COUNT (BEAKER) (test code = 417) IMMATURE 0 % 0-0 GRANULOCYTES-RELATIVE PERCENT (BEAKER) (test code = 2801) Rapid drug screen, [id number] 04:13:00 Test Item Value Reference Range Interpretation Comments Barbiturate Screen Negative Negative (test code = 96877-7) Benzodiazepine Screen Negative Negative (test code = 86311-2) Cocaine (Metab.) Negative Negative Screen (test code = 3397-7) Methadone Screen (test Negative Negative code = 01421-8) Opiate Screen (test Negative Negative code = 04359-5) Cannabinoid Screen Negative Negative (test code = 76793-0) Amph/Methamph Screen Negative Negative (test code = 47390-5) Phencyclidine Screen Negative Negative (test code = 54582-7) pH, UA (test code = 6.5 5.0-8.0 5803-2) DIONI (test code = DIONI) DRUG CUTOFF CONC.Cocaine 300 ng/mL Cannabinoid 50 ng/mLBenzodiazepine 200 ng/mLBarbiturate 200 ng/mLPhencyclidine 25 ng/mLOpiate 300 ng/mLMethadone 300 ng/mLAmphetamine/ 1000 ng/mL Methamphetamine This assay provides an unconfirmed qualitative test result for the clinical management of patients in emergency situations. Chain of custody not maintained. Some pjez-klg-smffzao medications, as well as adulterants, may cause inaccurate results. Clinical correlation should be applied. A more comprehensive drug screen or confirmation of a detected drug may be performed upon request.Necktie Maker ID - [id number] ID - [id number] ID - [id number] ID - [id number] ID - [id number] ID - [id number] ID - [id number] ID - [id number] Lab Interpretation Normal (test code = 80955-2) [facility], [id number] 04:13:00 Test Item Value Reference Range Interpretation Comments BARBITURATE URINE (BEAKER) (test Negative Negative code = 725) BENZODIAZEPINE SCREEN URINE (BEAKER) Negative Negative (test code = 726) COCAINE (METAB.) SCREEN (BEAKER) Negative Negative (test code = 1164) METHADONE SCREEN (BEAKER) (test code Negative Negative = 1436) OPIATE SCREEN URINE (BEAKER) (test Negative Negative code = 734) CANNABINOID SCREEN URINE (BEAKER) Negative Negative (test code = 727) AMPH/METHAMPH SCREEN (BEAKER) (test Negative Negative code = 1438) PHENCYCLIDINE SCREEN URINE (BEAKER) Negative Negative (test code = 608) PH UA (BEAKER) (test code = 467) 6.5 5.0-8.0 DRUG CUTOFF CONC.Cocaine 300 ng/mL Cannabinoid 50 ng/mLBenzodiazepine 200 ng/mLBarbiturate 200 ng/mLPhencyclidine 25 ng/mLOpiate 300 ng/mLMethadone 300 ng/mLAmphetamine/ 1000 ng/mL MethamphetamineThis assay provides an unconfirmed qualitative test result for the clinical management of patients in emergency situations. Chain of custody not maintained. Some crjh-cgb-gzkfcpm medications, as well as adulterants, may cause inaccurate results. Clinical correlation should be applied. A more comprehensivedrug screen or confirmation of a detected drug may be performed upon request.Necktie Maker ID - [id number] ID - [id number] ID - [id number] ID - [id number] ID - [id number] ID - [id number] ID - [id number] ID - [id number] and screen, [id number] 01:28:00 Test Item Value Reference Range Interpretation Comments ABO/RH AUTOMATED (BEAKER) (test O POSITIVE code = 2260) Ab Scrn (test code = 890-4) NEGATIVE [facility] Center[facility] [id number] 23:38:00 Test Item Value Reference Range Interpretation Comments TROPONIN I (BEAKER) (test code = 7.11 ng/mL 0.00-0.15 HH 397) Troponin I (TnI) levels must be [...] failure, acidosis, acute neurological disease, and persistent tachyarrhythmia.Necktie Maker ID - [id number] function [id number] 23:23:00 Test Item Value Reference Range Interpretation Comments Protein, Total (test 5.7 See_Comment L [Autom ated code = 2885-2) message] The system which generated this result transmit miracle reference range : 6.0 - 8.5 gm/dL . The reference range was not u sed to interpret th is result as normal/abnormal . Albumin (test code = 3.0 g/dL 3.5-5 L 83079-6) Total Bilirubin (test 0.7 mg/dL 0.1-1.2 code = 1975-2) Bilirubin, Direct 0.4 mg/dL 0-0.4 (test code = 1968-7) Alkaline Phosphatase 60 U/L 30-115 (test code = 6768-6) AST (test code = 64 U/L 5-40 H 1920-8) ALT (test code = 39 U/L 5-50 1742-6) DIONI (test code = DIONI) Necktie Maker ID - [id number] r ID - [id number] r ID - [id number] r ID - [id number] r ID - [id number] r ID - [id number] r ID - [id number] Lab Interpretation Abnormal (test code = 19684-1) [facility]OL[facility] [id number] 23:23:00 Test Item Value Reference Range Interpretation Comments SODIUM (BEAKER) 136 meq/L 135-148 (test code = 381) POTASSIUM (BEAKER) 3.1 meq/L 3.6-5.5 L (test code = 379) CHLORIDE (BEAKER) 105 meq/L 98-106 (test code = 382) CO2 (BEAKER) (test 22 meq/L 20-29 code = 355) BLOOD UREA NITROGEN 5 mg/dL 10-26 L (BEAKER) (test code = 354) CREATININE (BEAKER) 0.51 mg/dL 0.50-1.20 (test code = 358) GLUCOSE RANDOM 97 mg/dL 70-110 (BEAKER) (test code = 652) CALCIUM (BEAKER) 7.6 mg/dL 8.5-10.5 L (test code = 697) EGFR (BEAKER) (test 121 mL/min/1.73 ESTIM ATED GFR IS code = 1092) sq m NOT ACCURATE CREATININE CLEARANCE IN PREDICTING GLOMERULAR FILTRATION RATE . ESTIMATED GFR I S NOT APPLICABLE FOR DIALYSIS PATIEN TS. Necktie Maker ID - [id number] ID - [id number] ID - [id number] ID - [id number] ID - [id number] ID - [id number] ID - [id number] ID - [id number] ID - [id number] ID - [id number] HEPATIC FUNCTION [id number] 23:23:00 Test Item Value Reference Range Interpretation Comments TOTAL PROTEIN (BEAKER) (test code = 5.7 gm/dL 6.0-8.5 L 770) ALBUMIN (BEAKER) (test code = 1145) 3.0 g/dL 3.5-5.0 L BILIRUBIN TOTAL (BEAKER) (test code 0.7 mg/dL 0.1-1.2 = 377) BILIRUBIN DIRECT (BEAKER) (test 0.4 mg/dL 0.0-0.4 code = 706) ALKALINE PHOSPHATASE (BEAKER) (test 60 U/L 30-115 code = 346) AST (SGOT) (BEAKER) (test code = 64 U/L 5-40 H 353) ALT (SGPT) (BEAKER) (test code = 39 U/L 5-50 347) Necktie Maker ID - [id number] ID - [id number] ID - [id number] ID - [id number] ID - [id number] ID - [id number] ID - [id number] 23:23:00 Test Item Value Reference Range Interpretation Comments MAGNESIUM (BEAKER) (test code = 1.7 mg/dL 1.5-3.0 627) Necktie Maker ID - [id number] ID - [id number] ID - [id number] ID - [id number] [id number] 23:21:00 Test Item Value Reference Range Interpretation Comments Total Counted (test code = 1351) WBC Morphology (test code = 487) Normal Platelet Morphology (test code = 486) Normal Polychromasia (test code = 478) 1+ few Target Cells (test code = 480) 1+ few [facility] W/PLT COUNT & AUTO [id number] 23:21:00 Test Item Value Reference Range Interpretation Comments WHITE BLOOD CELL COUNT 7.6 K/ L 4.0-10.0 (BEAKER) (test code = 775) RED BLOOD CELL COUNT 3.25 M/ L 4.00-5.00 L (BEAKER) (test code = 761) HEMOGLOBIN (BEAKER) 6.5 GM/DL 12.0-15.5 L (test code = 410) HEMATOCRIT (BEAKER) 21.0 % 36.0-46.0 LL (test code = 411) MEAN CORPUSCULAR VOLUME 64.6 fL 82.0-99.0 L (BEAKER) (test code = 753) MEAN CORPUSCULAR 20.0 pg 27.0-33.0 L HEMOGLOBIN (BEAKER) (test code = 751) MEAN CORPUSCULAR 31.0 GM/DL 32.0-36.0 L HEMOGLOBIN CONC (BEAKER) (test code = 752) RED CELL DISTRIBUTION 20.7 % 12.0-15.0 H WIDTH (BEAKER) (test code = 412) PLATELET COUNT (BEAKER) 179 K/CU MM 150-430 (test code = 756) MEAN PLATELET VOLUME UNABLE TO CALCULATE (BEAKER) (test code = 754) NUCLEATED RED BLOOD 0 /100 WBC 0-0 CELLS (BEAKER) (test code = 413) NEUTROPHILS RELATIVE 63 % PERCENT (BEAKER) (test code = 429) LYMPHOCYTES RELATIVE 25 % PERCENT (BEAKER) (test code = 430) MONOCYTES RELATIVE 12 % PERCENT (BEAKER) (test code = 431) EOSINOPHILS RELATIVE 0 % PERCENT (BEAKER) (test code = 432) BASOPHILS RELATIVE 0 % PERCENT (BEAKER) (test code = 437) NEUTROPHILS ABSOLUTE 4.81 K/ L 1.80-8.00 COUNT (BEAKER) (test code = 670) LYMPHOCYTES ABSOLUTE 1.89 K/ L 1.48-4.50 COUNT (BEAKER) (test code = 414) MONOCYTES ABSOLUTE 0.89 K/ L 0.00-1.30 COUNT (BEAKER) (test code = 415) EOSINOPHILS ABSOLUTE 0.00 K/ L 0.00-0.50 COUNT (BEAKER) (test code = 416) BASOPHILS ABSOLUTE 0.02 K/ L 0.00-0.20 COUNT (BEAKER) (test code = 417) IMMATURE 0 % 0-0 GRANULOCYTES-RELATIVE PERCENT (BEAKER) (test code = 2801) (MANUAL DIFFERENTIAL)2020-08-29 23:21:00 Test Item Value Reference Range Interpretation Comments TOTAL COUNTED (BEAKER) (test code = 1351) WBC MORPHOLOGY (BEAKER) (test code = Normal 487) PLT MORPHOLOGY (BEAKER) (test code = Normal 486) POLYCHROMATOPHILLIC RBCS(BEAKER) (test 1+ few code = 478) TARGET CELLS (BEAKER) (test code = 1+ few 480) Prothrombin time/[id number] 23:18:00 Test Item Value Reference Interpretation Comments Range Protime (test code = 12.3 See_Comment H Final 5902-2) Information (Auto Output) [Automated message] The system which generated this result transmitted reference range : 9.3 - 12.0 seconds. The reference range was not used to interpret this result as normal/abnormal . INR (test code = 1.11 See_Comment Final 6301-6) Information (Auto Output) [Automated message] The system which generated this result transmitted reference range : <=5.90. The reference range was not used to interpret this result as normal/abnormal . DIONI (test code = RECOMMENDED DIONI) COUMADIN/WARFARIN INR THERAPY RANGESSTANDARD DOSE: 2.0 - 3.0 Includes: PROPHYLAXIS for venous thrombosis, systemic embolization; TREATMENT for venous thrombosis and/or pulmonary embolus.HIGH RISK: Target INR is 2.5-3.5 for patients with mechanical heart valves. Lab Interpretation Abnormal (test code = 63607-0) [facility] CenterPROTHROMBIN TIME/[id number] 23:18:00 Test Item Value Reference Range Interpretation Comments PROTIME (BEAKER) 12.3 seconds 9.3-12.0 H Final Infor mation (test code = 759) (Auto Outp ut) INR (BEAKER) (test 1.11 See_Comment Final Inf ormation code = 370) (Auto Output) [Automated mess age] The system [employer] generated this result transmitted ref erence range: <=5.90. The reference range was not used to int erpret this result as normal/abnormal . RECOMMENDED COUMADIN/WARFARIN INR THERAPY RANGESSTANDARD DOSE: 2.0 - 3.0 Includes: PROPHYLAXIS forvenous thrombosis, systemic embolization; TREATMENT for venous thrombosis and/or pulmonary embolus.HIGH RISK: Target INR is 2.5-3.5 for patients with mechanical heart valves.Hemoglobin [id number] 23:12:00 Test Item Value Reference Range Interpretation Comments Hemoglobin A1C (test code 5.0 % 4.3-6.1 = 4548-4) DIONI (test code = DIONI) Necktie Maker ID - [id number] Lab Interpretation (test Normal code = 59475-0) [facility] CenterHEMO[facility]IN [id number] 23:12:00 Test Item Value Reference Range Interpretation Comments HEMOGLOBIN A1C (BEAKER) (test code = 5.0 % 4.3-6.1 368) Necktie Maker ID - [id number]-[id number] 00:00:00Ordered by an unspecified provider.[facility] CenterFUN[facility] CULTURE + [id number] 17:29:00 Test Item Value Reference Range Interpretation Comments CULTURE (BEAKER) (test No fungus isolated in code = 1095) 28 days FUNGUS SMEAR (BEAKER) No fungi seen (test code = 1406) ANAEROBIC [id number] 18:10:00 Test Item Value Reference Range Interpretation Comments CULTURE (BEAKER) (test No anaerobes isolated code = 1095) SARS-COV2/RT-PCR ([facility])2020-01-03 11:25:00 Test Item Value Reference Range Interpretation Comments SARS-COV2/RT-PCR (test Negative Not Detected, Negative, code = 0064712) See external report for linked test SARS-COV-2 PERFORMING [facility] (test code = 1459356) Negative result for this test determines that [...] 564(g) of the Act.Fact Sheet for Healthcare Providers:https://www.[employer]sites/default/files/product/documents/Fact_Shee f_EP_Polcsxkbu_Tqyh_KKCA-HgQ-4.pdfFact Sheet for Healthcare Patients:https://www.[employer]sites/default/files/product/ documents/Tgak_Kncvh_Xgmoidpv_Ifyw_IDXX-DqG-3.pdfPerforming Laboratory:[facility], [place] [address]VJSSF METABOLIC PANEL 2020-01-03 05:46:00 Test Item Value Reference Range [...] S NOT APPLICABLE FOR DIALYSIS PATIEN TS. Necktie Maker ID - [id number] 05:40:00 Test Item Value Reference Range Interpretation Comments PHOSPHORUS (BEAKER) (test code = 3.4 mg/dL 2.3-4.7 604) Necktie Maker ID - [id number] 05:40:00 Test Item Value Reference Range Interpretation Comments MAGNESIUM (BEAKER) (test code = 1.7 mg/dL 1.6-2.6 627) Necktie Maker ID - EDASICBC W/PLT COUNT & AUTO [id number] 05:19:00 Test Item Value Reference Range Interpretation [...] 0-1 PERCENT (BEAKER) (test code = 2801) BASIC METABOLIC [id number] 05:31:00 Test Item Value Reference Range Interpretation [...] S NOT APPLICABLE FOR DIALYSIS PATIEN TS. Necktie Maker ID - EDASICBC W/PLT COUNT & AUTO [id number] 05:24:00 Test Item Value Reference Range Interpretation [...] 0-1 PERCENT (BEAKER) (test code = 2801) [id number] 05:03:00 Test Item Value Reference Range Interpretation Comments PHOSPHORUS (BEAKER) (test code = 3.6 mg/dL 2.3-4.7 604) Necktie Maker ID - [id number] 05:03:00 Test Item Value Reference Range Interpretation Comments MAGNESIUM (BEAKER) (test code = 1.6 mg/dL 1.6-2.6 627) Necktie Maker ID - EDASICBC W/PLT COUNT & AUTO [id number] 05:56:00 Test Item Value Reference Range Interpretation [...] H PERCENT (BEAKER) (test code = 2801) [id number] 05:09:00 Test Item Value Reference Range Interpretation Comments PHOSPHORUS (BEAKER) (test code = 3.8 mg/dL 2.3-4.7 604) Necktie Maker ID - [id number] 05:09:00 Test Item Value Reference Range Interpretation Comments MAGNESIUM (BEAKER) (test code = 1.6 mg/dL 1.6-2.6 627) Necktie Maker ID - EDASIBASIC METABOLIC [id number] 05:09:00 Test Item Value Reference Range Interpretation [...] S NOT APPLICABLE FOR DIALYSIS PATIEN TS. Necktie Maker ID - EDASIBASIC METABOLIC [id number] 06:51:00 Test Item Value Reference Range Interpretation [...] S NOT APPLICABLE FOR DIALYSIS PATIEN TS. Necktie Maker ID - [id number] 06:45:00 Test Item Value Reference Range Interpretation Comments MAGNESIUM (BEAKER) 1.6 mg/dL 1.6-2.6 Specimen slightly (test code = 627) hemolyzed Necktie Maker ID - [id number] 06:45:00 Test Item Value Reference Range Interpretation Comments PHOSPHORUS (BEAKER) 3.5 mg/dL 2.3-4.7 Specimen slightly (test code = 604) hemolyzed Necktie Maker ID - DBCBC W/PLT COUNT & AUTO [id number] 06:29:00 Test Item Value Reference Range Interpretation [...] (BEAKER) (test code = 2801) BASIC METABOLIC [id number] 05:57:00 Test Item Value Reference Range Interpretation [...] S NOT APPLICABLE FOR DIALYSIS PATIEN TS. Necktie Maker ID - [id number] 05:49:00 Test Item Value Reference Range Interpretation Comments PHOSPHORUS (BEAKER) (test code = 3.1 mg/dL 2.3-4.7 604) Necktie Maker ID - [id number] 05:49:00 Test Item Value Reference Range Interpretation Comments MAGNESIUM (BEAKER) (test code = 1.6 mg/dL 1.6-2.6 627) Necktie Maker ID - DBVANCOMYCIN LEVEL, [id number] 05:36:00 Test Item Value Reference Range Interpretation Comments VANCOMYCIN TROUGH (BEAKER) (test 10.9 ug/mL 10.0-20.0 code = 522) Necktie Maker ID - DBCBC W/PLT COUNT & AUTO [id number] 05:29:00 Test Item Value Reference Range Interpretation [...] (BEAKER) (test code = 2801) BASIC METABOLIC [id number] 06:37:00 Test Item Value Reference Range Interpretation [...] S NOT APPLICABLE FOR DIALYSIS PATIEN TS. Necktie Maker ID - [id number] 06:18:00 Test Item Value Reference Range Interpretation Comments MAGNESIUM (BEAKER) 1.6 mg/dL 1.6-2.6 Specimen slightly (test code = 627) hemolyzed Necktie Maker ID - [id number] 06:18:00 Test Item Value Reference Range Interpretation Comments PHOSPHORUS (BEAKER) 2.7 mg/dL 2.3-4.7 Specimen slightly (test code = 604) hemolyzed Necktie Maker ID - EDASICBC W/PLT COUNT & AUTO [id number] 05:33:00 Test Item Value Reference Range Interpretation [...] H PERCENT (BEAKER) (test code = 2801) SURGICALLY OBTAINED CULTURE + GRAM [id number] 14:41:00 Test Item Value Reference Range Interpretation Comments CULTURE (BEAKER) (test code No growth = 1095) GRAM STAIN RESULT (BEAKER) 2+ WBCs (test code = 1123) GRAM STAIN RESULT (BEAKER) No organisms seen (test code = 92014) [id number] 05:41:00 Test Item Value Reference Range Interpretation Comments PHOSPHORUS (BEAKER) (test code = 2.6 mg/dL 2.3-4.7 604) Necktie Maker ID - [id number] 05:41:00 Test Item Value Reference Range Interpretation Comments MAGNESIUM (BEAKER) (test code = 1.7 mg/dL 1.6-2.6 627) Necktie Maker ID - EDASIBASIC METABOLIC [id number] 05:41:00 Test Item Value Reference Range Interpretation [...] S NOT APPLICABLE FOR DIALYSIS PATIEN TS. Necktie Maker ID - EDASIHEPATIC FUNCTION [id number] 05:41:00 Test Item Value Reference Range Interpretation [...] (test code = 19 U/L 6-55 347) Necktie Maker ID - EDASICBC W/PLT COUNT & AUTO [id number] 05:38:00 Test Item Value Reference Range Interpretation [...] H PERCENT (BEAKER) (test code = 2801) TISSUE [id number] 14:02:00Surgical Pathology Report Case: [id number] Authorizing Provider: Dougie Montoya MD Collected: 12/25/2019 08:20 AM Ordering Location: [facility] Received: 12/25/2019 11:14 AM SERVICES Pathologist: [...] - ADIPOSE TISSUE WITH ACUTE AND CHRONIC INFLAMMATION. Signing Pathologist Direct Phone Line: [phone] signed by Lois Metz MD on 12/27/2019 at 2:02 [id number], [id number] perforationA. Stomach; B. OmentumA. Received in formalin [...] code: A1, proximal and distal margins en face;A2- A7, transmural defect A8, posterior wallA9, anterior wallA10, one lymph node, cecvnnjwB10, one lymph nodeB. Received in formalin labeled withthe patient's name, accession number and "omentum" is a 39.0 x 13.7 x 1.5 cm portion of wallace- yellow fibrofatty omentum with attached fibromembranous tissue. Sectioning reveals a tn-yellow fibrofatty cutsurface, No discrete lesions are identified. Car Shakeout Operator sections are submitted in B1-B4. PA/pl [facility]formedB[facility], Department of Pathology, [address] [place] [address], XijnnbGole[facility], Department of Pathology, [address] [place] [address], CbghrpGoleta Valley Cottage Hospital, Department of Pathology, [address] [place], [place] [id number], SSGW-COV2/RT-PCR ([facility])2019-12-27 12:48:00 Test Item Value Reference Range Interpretation Comments SARS-COV2/RT-PCR (test Negative Not Detected, Negative, code = 1301862) See external report for linked test SARS-COV-2 PERFORMING LAB [facility] (test code = 7538709) Negative result for this test determines that [...] 564(g) of the Act.Fact Sheet for Healthcare Providers:https://www.[employer]/sites/default/files/product/documents/Fact_Shee l_UY_Cxqiwvuhf_Csvj_LBFA-PxZ-0.pdfFact Sheet for Healthcare Patients:https://www.[employer]/sites/default/files/product/ documents/Grrv_Lmpyw_Hxjgdbdu_Flrb_IIAT-HiV-5.pdfPerforming Laboratory:[facility], [place] [address]YRSQUFGXSE LEVEL, [id number] 07:01:00 Test Item Value Reference Range Interpretation Comments VANCOMYCIN TROUGH (BEAKER) (test 7.1 ug/mL 10.0-20.0 L code = 522) Necktie Maker ID - PIAYA LBASIC METABOLIC [id number] 06:28:00 Test Item Value Reference Range Interpretation [...] S NOT APPLICABLE FOR DIALYSIS PATIEN TS. Necktie Maker ID - JOSEE [id number] 06:17:00 Test Item Value Reference Range Interpretation Comments PHOSPHORUS (BEAKER) (test code = 2.2 mg/dL 2.3-4.7 L 604) Necktie Maker ID - JOSEE [id number] 06:17:00 Test Item Value Reference Range Interpretation Comments MAGNESIUM (BEAKER) (test code = 1.8 mg/dL 1.6-2.6 627) Necktie Maker ID - JOSEE LHEPATIC FUNCTION [id number] 06:17:00 Test Item Value Reference Range Interpretation [...] (test code = 14 U/L 6-55 347) Necktie Maker ID - SANDYKERON LCBC W/PLT COUNT & AUTO [id number] 06:05:00 Test Item Value Reference Range Interpretation [...] 0-1 PERCENT (BEAKER) (test code = 2801) POCT-GLUCOSE [id number] 11:06:00 Test Item Value Reference Range Interpretation Comments POC-GLUCOSE METER 72 mg/dL 70-110 : TESTED A T [facility] 6720 (BEAKER) (test code = TANIA Na[place], 1538) [address]: Necktie Maker/Techni pollo ID = [id number] for MAN DISLA BASIC METABOLIC [id number] 07:24:00 Test Item Value Reference Range Interpretation [...] S NOT APPLICABLE FOR DIALYSIS PATIEN TS. Necktie Maker ID - [id number] 07:18:00 Test Item Value Reference Range Interpretation Comments PHOSPHORUS (BEAKER) (test code = 2.4 mg/dL 2.3-4.7 604) Necktie Maker ID - [id number] 07:18:00 Test Item Value Reference Range Interpretation Comments MAGNESIUM (BEAKER) (test code = 1.8 mg/dL 1.6-2.6 627) Necktie Maker ID - BSHEPATIC FUNCTION [id number] 07:18:00 Test Item Value Reference Range Interpretation [...] (test code = 11 U/L 6-55 347) Necktie Maker ID - BSCBC W/PLT COUNT & AUTO [id number] 06:08:00 Test Item Value Reference Range Interpretation [...] PERCENT (BEAKER) (test code = 2801) SARS-COV2/RT-PCR ([facility])2019-12-25 18:47:00 Test Item Value Reference Range Interpretation Comments SARS-COV2/RT-PCR (test code Negative Not Detected, Negative, = 4561961) See external report for linked test SARS-COV-2 PERFORMING LAB [facility] (test code = 8780426) Negative results do not preclude SARS-CoV-2 infection [...] of the Act.Fact Sheet for Healthcare Pro viders:https://www.Sim[employer]how.[employer]Documents/Xpert%20Xpress%20SARS%20CoV-2/Fact%20Sh eets/302-3802%82HCNV-OXV-8%20HEALTHCARE%20PROVIDERS%20FACT%20SHEET.pdfFact Sheet for Healthcare Patients:https://www.[employer]Documents/Xpert%20Xpress%20SARS%20CoV-2/Fact%20Sheets/302-3801%20SARS-COV -2%20PATIENT%20FACT%20SHEET.pdfPerforming Laboratory:[facility], [place] [address]WILNV METABOLIC [id number] 15:48:00 Test Item Value Reference Range Interpretation [...] S NOT APPLICABLE FOR DIALYSIS PATIEN TS. Necktie Maker ID - [facility] METABOLIC [id number] 15:00:00 Test Item Value Reference Range Interpretation [...] S NOT APPLICABLE FOR DIALYSIS PATIEN TS. Necktie Maker ID - [id number] 15:00:00 Test Item Value Reference Range Interpretation Comments MAGNESIUM (BEAKER) (test code = 1.9 mg/dL 1.6-2.6 627) Necktie Maker ID - [id number] 14:59:00 Test Item Value Reference Range Interpretation Comments PHOSPHORUS (BEAKER) (test code = 4.1 mg/dL 2.3-4.7 604) Necktie Maker ID - [id number] 12:34:00 Test Item Value Reference Range Interpretation Comments MAGNESIUM (BEAKER) (test code = 1.9 mg/dL 1.6-2.6 627) Necktie Maker ID - LMBASIC METABOLIC [id number] 12:34:00 Test Item Value Reference Range Interpretation [...] S NOT APPLICABLE FOR DIALYSIS PATIEN TS. Necktie Maker ID - [id number] 12:33:00 Test Item Value Reference Range Interpretation Comments PHOSPHORUS (BEAKER) (test code = 4.8 mg/dL 2.3-4.7 H 604) Necktie Maker ID - LMCBC (HEMOGRAM ONLY)2019-12-25 12:27:00 Test Item Value Reference [...] 0-0 CELLS (BEAKER) (test code = 413) [id number] 11:53:00 Test Item Value Reference Range Interpretation Comments PHOSPHORUS (BEAKER) (test code = 2.9 mg/dL 2.3-4.7 604) Necktie Maker ID - LMSODIUM NA-STAT [id number] 10:15:00 Test Item Value Reference Range Interpretation Comments SODIUM (BEAKER) (test code = 381) 129 meq/L 136-145 L POTASSIUM-STAT [id number] 10:15:00 Test Item Value Reference Range Interpretation Comments POTASSIUM (BEAKER) (test code = 3.2 meq/L 3.6-5.5 L 379) GLUCOSE-STAT [id number] 10:15:00 Test Item Value Reference Range Interpretation Comments GLUCOSE RANDOM (BEAKER) (test code 116 mg/dL 70-110 H = 652) HGB/HCT (H&H) - STAT [id number] 10:15:00 Test Item Value Reference Range Interpretation Comments HEMOGLOBIN (BEAKER) (test code = 8.9 g/dL 12.0-15.0 L 410) HEMATOCRIT (BEAKER) (test code = 26.0 % 36.0-45.0 L 411) CALCIUM, [id number] 10:13:00 Test Item Value Reference Range Interpretation Comments CALCIUM IONIZED (BEAKER) (test 1.06 mmol/L 1.12-1.27 L code = 698) PH, BLOOD (BEAKER) (test code = 7.28 1810) BLOOD GAS, [id number] 10:13:00 Test Item Value Reference Range Interpretation [...] (BEAKER) (test code = 1819) 55.0 % (CELLAVISION MANUAL DIFF)2019-12-25 09:14:00 Test Item Value Reference [...] (BEAKER) (test 1+ few code = 481) ROXANA CELLS (BEAKER) (test code = 1+ few 474) Necktie Maker ID - 6000Manually [id number] 04:33:00 Test Item Value Reference Range Interpretation Comments MAGNESIUM (BEAKER) (test code = 1.9 mg/dL 1.6-2.6 627) Necktie Maker ID - LOAN WBASIC METABOLIC [id number] 04:33:00 Test Item Value Reference Range Interpretation [...] S NOT APPLICABLE FOR DIALYSIS PATIEN TS. Necktie Maker ID - LOAN WCBC W/PLT COUNT & AUTO [id number] 04:22:00 Test Item Value Reference Range Interpretation [...] (BEAKER) (test code = 2801) HEPATIC FUNCTION [id number] 02:51:00 Test Item Value Reference Range Interpretation [...] (test code = 18 U/L 6-55 347) Necktie Maker ID - LOAN WSARS-COV2/RT-PCR ([facility])2019-12-25 01:01:00 Test Item Value Reference Range Interpretation Comments SARS-COV2/RT-PCR (test code Negative Not Detected, Negative, = 8194521) See external report for linked test SARS-COV-2 PERFORMING LAB [facility] (test code = 7846871) Negative results do not preclude SARS-CoV-2 infection [...] of the Act.Fact Sheet for Healthcare Pro viders:https://www.[employer]/Documents/Xpert%20Xpress%20SARS%20CoV-2/Fact%20Sh eets/302-3802%19FCLU-IWC-2%20HEALTHCARE%20PROVIDERS%20FACT%20SHEET.pdfFact Sheet for Healthcare Patients:https://www.DTT/Documents/Xpert%20Xpress%20SARS%20CoV-2/Fact%20Sheets/302-3801%20SARS-COV -2%20PATIENT%20FACT%20SHEET.pdfPerforming Laboratory:[facility], [place] [id number] 00:40:00 Test Item Value Reference Range Interpretation [...] failure, acidosis, acute neurological disease, and persistent tachyarrhythmia.Necktie Maker ID - SHRADDHA CARBALLO, 1 VIEW, NON [id number] 00:40:00Reason for exam:->Chest painShould this be performed at the bedside?->YesFINAL REPORT INDICATION: Chest pain COMPARISON: None TECHNIQUE: Single frontal view of the chest. IMPRESSION: Lungs and pleura: Clear lungs. No effusion.Heart and mediastinum: Normal heart size. Unremarkable mediastinal contours.Osseous structures: No acute abnormality.Other: Mildly displaced fracture of the posterior right eighth rib of indeterminate chronicity. Signed: Ralf Mauricio MDReport Verified Date/Time: 12/25/2019 00:40:46 [id number] 00:33:00 Test Item Value Reference Range Interpretation Comments MAGNESIUM (BEAKER) (test code = 1.3 mg/dL 1.6-2.6 L 627) Necktie Maker ID - BSBASIC METABOLIC [id number] 00:33:00 Test Item Value Reference Range Interpretation [...] S NOT APPLICABLE FOR DIALYSIS PATIEN TS. Necktie Maker ID - [id number] 00:33:00 Test Item Value Reference Range Interpretation Comments PHOSPHORUS (BEAKER) (test code = 2.8 mg/dL 2.3-4.7 604) Necktie Maker ID - BSPROTHROMBIN [id number] 00:17:00 Test Item Value Reference Range Interpretation [...] mechanical heart valves.CBC W/PLT COUNT & AUTO [id number] 00:11:00 Test Item Value Reference Range Interpretation [...]
[2021-02-06 23:44] LABS: Protime INR 1.2
[2021-02-06 23:58] LABS: Albumin 3.4 g/dL (3.4-5.0); Bilirubin Direct 0.3 mg/dL (0-0.2); Bilirubin Total 0.6 mg/dL (0.2-1.0); Magnesium 2.2 mg/dL (1.8-2.4); Potassium 4.5 mmol/L (3.5-5.1); Protein, Total 7.5 g/dL (6.4-8.2); Troponin (Emerg Dept Use Only) 0.02 ng/mL (0.0-0.045)
[2021-02-07 00:42] LABS: Absolute Lymphocytes (CBC) 1.8 K/uL (0.7-4.9); Basophils % 0.3 % (0-1.3); Lymphocytes % 33.5 % (15.3-44.8); MPV 9.2 fL (7.6-11.3); RBC Red Blood Cell Count 2.43 M/uL (3.86-4.86)
[2021-02-07 00:50] LABS: Hematocrit 14.5 % (36.0-45.0)
--- NOTE | 2021-02-07 01:11 | ER ---
Nurse's Notes [facility] Name: Lakeisha Kumari Age: 65 yrs Sex: Female : 1955 Arrival Date: 02/06/2021 Time: 22:14 Bed 8 Private MD: Diagnosis: Syncope;Anemia, Symptomatic Presentation: 02/06 22:46 Chief complaint: Patient states: Syncopal episode and hit head. Pt is on blood thinner. kg Pt stated, " I was walking at [employer] and passed out and hit my head on the counter.". Coronavirus screen: Vaccine status: Patient reports being unvaccinated. Ebola Screen: Patient negative for fever greater than or equal to 101.5 degrees Fahrenheit, and additional compatible Ebola Virus Disease symptoms Patient denies exposure to infectious person. Patient denies travel to an Ebola-affected area in the 21 days before illness onset. Initial Sepsis Screen: Does the patient meet any 2 criteria? No. Patient's initial sepsis screen is negative. Does the patient have a suspected source of infection? No. Patient's initial sepsis screen is negative. Risk Assessment: Do you want to hurt yourself or someone else? Patient reports no desire to harm self or others. Onset of symptoms was February 06, 2021 at 21:30. 22:46 Method Of Arrival: EMS: [facility] kg 22:46 Acuity: KVNG 3 kg 23:10 Care prior to arrival: None. Mechanism of Injury: Fall from standing position. hit head kg on counter. Trauma event details: Injury occurred in the [facility], Injury occurred: in a public building. Injury occurred: February 06, 2021 Injury occurred at: 21:30. Triage Assessment: 22:50 General: Appears in no apparent distress. Behavior is calm, cooperative, appropriate kg for age, quiet. Pain: Complains of pain in forehead, right eye, right cheek, right ear and right orthodox. Trauma Activation: Alert Physician: ED Physician; Name: Edwige; Notified At: 11:00; Arrived At: 11:05 Physician: General Surgeon; Name: ; Notified At: 11:00; Arrived At: Physician: Radiology; Name: ; Notified At: 11:00; Arrived At: Physician: Respiratory; Name: ; Notified At: 11:00; Arrived At: Physician: Lab; Name: ; Notified At: 11:00; Arrived At: Historical: - Allergies: 22:50 No Known Allergies; kg - Home Meds: 22:50 lisinopril Oral [Active]; Buspirone Oral [Active]; amlodipine oral [Active]; "Blood kg thinner unsure of name [Active]; - PMHx: 22:50 Alcoholism; Anxiety; Atrial Fib; Cirrhosis; Depression; Hepatitis; Hypertension; "Heart kg attack or a stroke"; Gastric Ulcer; - PSHx: 22:50 Cardiac stent; Cholecystectomy; Jaw Sx; kg - Immunization history:: Adult Immunizations not up to date, Client reports having NOT received the Covid vaccine. - Social history:: Smoking status: Patient reports the use of cigarette tobacco products, smokes one pack cigarettes per day. - Immunization history: Last tetanus immunization:. Screenin:12 Abuse screen: Denies threats or abuse. Denies injuries from another. Tuberculosis kg screening: No symptoms or risk factors identified. 23:15 Nutritional screening: No deficits noted. Fall Risk Fall in past 12 months (25 points). kg No secondary diagnosis (0 pts). IV access (20 points). Ambulatory Aid- None/Bed Rest/Nurse Assist (0 pts). Gait- Weak (10 pts.). Mental Status- Oriented to own ability (0 pts). Total Holliday Fall Scale indicates Low Risk Score (25-44 pts). Fall prevention measures have been instituted. Side Rails Up X 2 Placed close to Nursing Station Frequent Obs/Assesments occuring As available Patient and Family Educated on Fall Prevention Program and strategies. Primary Survey: 23:12 NO uncontrolled hemorrhage observed. A: The patient is alert. Airway: patent, No kg supplemental oxygen in use on arrival. Oral cavity: clear, Trachea midline. Breathing/Chest: Respiratory pattern: regular, Respiratory effort: spontaneous, unlabored, Breath sounds: clear, bilaterally. Chest inspection: symmetrical rise and fall of the chest. Circulation: Cardiac rhythm: sinus rhythm. Disability Alert. Exposure/Environment: All clothing and personal items were removed. Forensic evidence collection is not deemed to be indicated at this time. Items placed in patient belonging bag. There is no evidence of uncontrolled external bleeding. Obvious injury(ies) are noted at this time: Swelling to right orbital socket A warming method has been applied: A warm blanket has been provided to the patient. Reassessment Breathing/Chest. Secondary Survey: 23:12 Injury Description: Head injury sustained to forehead, right eye, right ear and right kg orthodox is closed, had loss of consciousness, hematoma to right cheek and right eye Skin tears. Assessment: 23:00 General: Appears uncomfortable, Behavior is calm, cooperative, appropriate for age. ea Pain: Complains of pain in forehead. Neuro: Level of Consciousness is awake, alert, obeys commands, Oriented to person, place, time. Cardiovascular: Patient's skin is warm and dry. Respiratory: Airway is patent Respiratory effort is even, unlabored, Respiratory pattern is regular, symmetrical. Derm: Skin is fragile, is thin, Skin is dry. 02/07 07:03 General: Appears in no apparent distress. comfortable, Behavior is calm, cooperative. rb3 Pain: Complains of pain in forehead. Neuro: Level of Consciousness is awake, alert, obeys commands, Oriented to person, place, time. Cardiovascular: Patient's skin is warm and dry. Respiratory: Airway is patent Respiratory effort is even, unlabored, Respiratory pattern is regular, symmetrical. 07:03 Reassessment: First unit of blood is currently infusing. rb3 14:05 Reassessment: Gave report to ELEONORA Wade. Information from the SBAR was given. Informed rb3 to watch for results for a Troponin that is due and is currently being drawn. And also to give Lasix 20 mg IV after the third unit of PRBC's and to repeat the Hgb/Hct one hour after the transfusion is complete per Dr. Sheehan, and to call the hospitalist with the results. All questions asked and answered. Vital Signs: 02/06 22:46 BP 147 / 59; Pulse 77; Resp 22; Temp 97.1(TE); Pulse Ox 98% on R/A; Weight 58.97 kg kg (R); Height 5 ft. 4 in. (162.56 cm) (R); Pain 9/10; 22:46 Body Mass Index 22.31 (58.97 kg, 162.56 cm) kg Disputanta Coma Score: 23:12 Eye Response: spontaneous(4). Verbal Response: oriented(5). Motor Response: obeys kg commands(6). Total: 15. Trauma Score (Adult): 23:12 Eye Response: spontaneous(1); Verbal Response: oriented(1); Motor Response: obeys kg commands(2); Systolic BP: > 89 mm Hg(4); Respiratory Rate: 10 to 29 per min(4); Jareth Score: 15; Trauma Score: 12 ED Course: 22:14 Patient arrived in ED. mr 22:49 Triage completed. kg 22:50 Arm band placed on right wrist. kg 22:56 Gerry Gibbons MD is Attending Physician. mh7 23:12 Patient has correct armband on for positive identification. kg 23:12 Patient maintains SpO2 saturation greater than 95% on room air. kg 23:15 Thermoregulation: warm blanket given to patient. kg 23:22 Sharon Black, RN is Primary Nurse. ea 23:35 Missed attempt(s): 20 gauge in right forearm. Bleeding controlled, band aid applied, oe catheter tip intact. 23:40 CT Head C Spine In Process Unspecified. EDMS 23:40 CT Facial Bones W/O Con In Process Unspecified. EDMS 02/07 00:15 Inserted saline lock: 24 gauge in right hand, using aseptic technique. ea 00:19 XRAY Chest (1 view) In Process Unspecified. EDMS 00:19 Forearm Left XRAY In Process Unspecified. EDMS 00:55 No provider procedures requiring assistance completed. ea 01:00 Notified ED physician of a critical lab result(s). HGB of 4.3, HCT of 14.5 Dr Gibbons bb notified. 01:09 Regulo Sheehan DO is Hospitalizing Provider. mh7 01:55 Patient admitted, IV remains in place. ea 03:00 Inserted saline lock: 22 gauge in right upper arm, using aseptic technique. Blood oe collected. 14:32 No provider procedures requiring assistance completed. Patient admitted, IV remains in rb3 place. Administered Medications: 01:50 Drug: ProTONIX (pantoprazole) 40 mg Route: IVP; Site: left hand; ea Outcome: 02/06 23:12 Condition: stable kg Patient's length of stay was not longer than 2 hours. 02/07 01:10 Decision to Hospitalize by Provider. mh7 01:58 Admitted to ER Hold. Please see [facility] for further documentation. ea 01:58 Instructed on the need for admit. 14:38 Admitted to Med/surg accompanied by tech, via wheelchair, room 222, with chart, Report rb3 called to ELEONORA Wade 14:38 Condition: stable 14:38 Instructed on the need for admit. rb3 14:40 Patient left the ED. rb3 Signatures: Dispatcher [employer] Kerrie Fry Brenda, RN RN Ken Deleon Elena, RN RN ea Holmes, Maurice, MD MD Michelle Chen, RN RN rb3 Radha Felipe RN RN kg Corrections: (The following items were deleted from the chart) 02/06 23:10 22:50 Home Meds: Prozac Oral; kg kg 02/07 08:43 07:03 Respiratory: Airway is patent Respiratory effort is even, unlabored, Respiratory rb3 pattern is regular, symmetrical, rb3
--- NOTE | 2021-02-07 01:11 | EDPHYS ---
Physician Documentation [facility] Name: Lakeisha Kumari Age: 65 yrs Sex: Female : 1955 Arrival Date: 02/06/2021 Time: 22:14 Bed 8 Private MD: ED Physician Gerry Gibbons HPI: 02/06 23:15 This 65 yrs old Female presents to ER via EMS with complaints of Fall Injury, mh7 Dizziness, Eye Injury. 23:15 The patient has experienced syncope, collapsed. mh7 23:15 Onset: The symptoms/episode began/occurred just prior to arrival, today. Duration: This mh7 was a single episode, that lasted an unknown period of time. Context: the episode(s) was witnessed, by a bystander, occurred at a store, occurred while the patient was walking, Just prior to the episode the patient experienced dizziness, lightheadedness, Shortness of breath. Associated injury: Head/face: face, abrasion, contusion. Associated signs and symptoms: Pertinent positives: chest pain, dizziness, shortness of breath, Pertinent negatives: abdominal pain, agitation, ataxia, blurred vision, combativeness, confusion, diaphoresis, diarrhea, headache, nausea, numbness, palpitations, seizure, tingling, vertigo, vomiting, weakness. Current symptoms: Shortness of breath. Patient reports having shortness of breath with exertion for 3 weeks. She states that symptoms have worsened since it started. She has also had some intermittent chest pain. She states that she was in a store today and felt shortness of breath and dizziness and fell hit her head and passed out.. Historical: - Allergies: 22:50 No Known Allergies; kg - Home Meds: 22:50 lisinopril Oral [Active]; Buspirone Oral [Active]; amlodipine oral [Active]; "Blood kg thinner unsure of name [Active]; - PMHx: 22:50 Alcoholism; Anxiety; Atrial Fib; Cirrhosis; Depression; Hepatitis; Hypertension; "Heart kg attack or a stroke"; Gastric Ulcer; - PSHx: 22:50 Cardiac stent; Cholecystectomy; Jaw Sx; kg - Immunization history:: Adult Immunizations not up to date, Client reports having NOT received the Covid vaccine. - Social history:: Smoking status: Patient reports the use of cigarette tobacco products, smokes one pack cigarettes per day. - Immunization history: Last tetanus immunization:. ROS: 23:15 Constitutional: Negative for fever, chills, and weight loss, Eyes: Negative for injury, mh7 pain, redness, and discharge, ENT: Negative for injury, pain, and discharge, Neck: Negative for injury, pain, and swelling, Abdomen/GI: Negative for abdominal pain, nausea, vomiting, diarrhea, and constipation, Back: Negative for injury and pain, : Negative for injury, bleeding, discharge, and swelling, MS/Extremity: Negative for injury and deformity, Skin: Negative for injury, rash, and discoloration, Neuro: Negative for headache, weakness, numbness, tingling, and seizure, Psych: Negative for depression, anxiety, suicide ideation, homicidal ideation, and hallucinations, Allergy/Immunology: Negative for hives, rash, and allergies, Endocrine: Negative for neck swelling, polydipsia, polyuria, polyphagia, and marked weight changes, Hematologic/Lymphatic: Negative for swollen nodes, abnormal bleeding, and unusual bruising. Exam: 23:15 ENT: Nares patent. No nasal discharge, no septal abnormalities noted. Tympanic mh7 membranes are normal and external auditory canals are clear. Oropharynx with no redness, swelling, or masses, exudates, or evidence of obstruction, uvula midline. Mucous membranes moist. Neck: Trachea midline, no thyromegaly or masses palpated, and no cervical lymphadenopathy. Supple, full range of motion without nuchal rigidity, or vertebral point tenderness. No Meningismus. Chest/axilla: Normal chest wall appearance and motion. Nontender with no deformity. No lesions are appreciated. Cardiovascular: Regular rate and rhythm with a normal S1 and S2. No gallops, murmurs, or rubs. Normal PMI, no JVD. No pulse deficits. 23:15 Abdomen/GI: Soft, non-tender, with normal bowel sounds. No distension or tympany. No guarding or rebound. No evidence of tenderness throughout. Back: No spinal tenderness. No costovertebral tenderness. Full range of motion. 23:15 MS/ Extremity: Pulses equal, no cyanosis. Neurovascular intact. Full, normal range of motion. 23:15 Psych: Awake, alert, with orientation to person, place and time. Behavior, mood, and affect are within normal limits. 23:15 Constitutional: The patient appears alert, awake, in obvious distress, mildly distressed, uncomfortable. 23:15 Head/face: Noted is abrasion(s), that are mild, of the face, contusion, that is superficial, of the face. 23:15 Cardiovascular: Edema: pedal edema, that is mild. 23:15 Respiratory: mild respiratory distress is noted, Respirations: prolonged exhalation, that is mild, Breath sounds: rhonchi, that are mild, are heard diffusely, Respiratory rate: 22 23:15 Neuro: Orientation: is normal, Mentation: is normal, Memory: is normal, Cranial nerves: grossly normal, Cerebellar function: is grossly normal, Motor: is normal, Sensation: is normal, Gait: not tested. seizure activity, is not displayed by the patient, Abnormal movements: there are no abnormal movements. Vital Signs: 22:46 BP 147 / 59; Pulse 77; Resp 22; Temp 97.1(TE); Pulse Ox 98% on R/A; Weight 58.97 kg kg (R); Height 5 ft. 4 in. (162.56 cm) (R); Pain 9/10; 22:46 Body Mass Index 22.31 (58.97 kg, 162.56 cm) kg [place] Coma Score: 23:12 Eye Response: spontaneous(4). Verbal Response: oriented(5). Motor Response: obeys kg commands(6). Total: 15. Trauma Score (Adult): 23:12 Eye Response: spontaneous(1); Verbal Response: oriented(1); Motor Response: obeys kg commands(2); Systolic BP: > 89 mm Hg(4); Respiratory Rate: 10 to 29 per min(4); [place] Score: 15; Trauma Score: 12 MDM: 02/07 01:03 Differential Diagnosis: cardiac arrhythmia, drug effect, emotional response, GI bleed, mh7 idiopathic syncope, pseudo seizure, seizure, transient ischemic attack, vasovagal episode, Anemia. Data reviewed: vital signs, nurses notes, EMS record, old medical records, lab test result(s), cardiac enzymes, CBC, electrolytes, EKG, radiologic studies, CT scan, plain films. Data interpreted: Pulse oximetry: on room air is 98 %. Interpretation: normal. Counseling: I had a detailed discussion with the patient and/or guardian regarding: the historical points, exam findings, and any diagnostic results supporting the discharge/admit diagnosis, the presence of at least one elevated blood pressure reading (>120/80) during this emergency department visit, lab results, radiology results, the need for further work-up and treatment in the hospital. Response to treatment: the patient's symptoms have mildly improved after treatment. 01:10 Patient medically screened. [facility] 02/06 23:12 Order name: Basic Metabolic Panel [facility] 02/06 23:12 Order name: CBC with Diff; Complete Time: 00:51 [facility] 02/06 23:12 Order name: LFT's; Complete Time: 00:27 [facility] 02/06 23:12 Order name: Magnesium; Complete Time: 00:27 [facility] 02/06 23:12 Order name: NT PRO-BNP; Complete Time: 00:27 [facility] 02/06 23:12 Order name: PT-INR; Complete Time: 23:57 [facility] 02/06 23:12 Order name: Troponin (emerg Dept Use Only); Complete Time: 00:27 [facility] 02/06 23:12 Order name: Basic Metabolic Panel; Complete Time: 00:05 [facility] 02/07 00:46 Order name: SARS-COV-2 RT PCR; Complete Time: 00:51 [facility] 02/07 00:53 Order name: Type And Screen [facility] 02/07 00:53 Order name: PRBC [facility] 02/07 00:54 Order name: Type and Screen [facility] 02/07 00:54 Order name: Packed RBC Leukored [facility] 02/06 23:12 Order name: XRAY Chest (1 view) [facility] 02/06 23:12 Order name: CT Head C Spine [facility] 02/06 23:12 Order name: CT Facial Bones W/O Con [facility] 02/06 23:13 Order name: Forearm Left XRAY [facility] 02/07 00:54 Order name: ABO/RH typing [facility] 02/07 00:54 Order name: Antibody Screen [facility] 02/07 00:58 Order name: Ferritin la1 02/07 00:58 Order name: TIBC la1 02/07 00:59 Order name: LDH la1 02/07 08:39 Order name: Troponin I [facility] 02/07 08:39 Order name: Lipid Profile [facility] 02/07 08:39 Order name: T4 Free [facility] 02/07 08:39 Order name: Thyroid Stimulating Hormone [facility] 02/06 23:12 Order name: EKG; Complete Time: 23:13 [facility] 02/06 23:12 Order name: Cardiac monitoring; Complete Time: 02:01 [facility] 02/06 23:12 Order name: EKG - Nurse/Tech; Complete Time: 00:03 [facility] 02/06 23:12 Order name: IV Saline Lock; Complete Time: 02:01 [facility] 02/06 23:12 Order name: Labs collected and sent; Complete Time: 02:01 [facility] 02/06 23:12 Order name: O2 Per Protocol; Complete Time: 02:01 [facility] 02/06 23:12 Order name: O2 Sat Monitoring; Complete Time: 02: [facility] 02/07 01:04 Order name: Dermabond; Complete Time: 02:01 [facility] Administered Medications: 01:50 Drug: ProTONIX (pantoprazole) 40 mg Route: IVP; Site: left hand; ea Disposition Summary: 02/07/21 01:10 Hospitalization Ordered Hospitalization Status: Inpatient Admission [facility] Provider: Regulo Sheehan Bárbara Condition: Stable [facility] Problem: an acute exacerbation [facility] Symptoms: have improved [facility] Bed/Room Type: Standard [facility] Location: Telemetry/MedSurg (Inpatient)(02/07/21 13:23) Room Assignment: 222(02/07/21 14:04) em1 Diagnosis - Syncope 7 - Anemia, Symptomatic 7 Forms: - Medication Reconciliation Form 7 - SBAR form [facility] Signatures: Dispatcher [employer] EDAdeola Mallory, RN Bert Landry em1 Cristóbal Bautista, PLAYGROUND AIDE-C PLAYGROUND AIDE-Cla1 Cathie Paredes, RN Sharon Jones RN RN ea Holmes, Maurice, MD MD 7 Radha Felipe, ELE[employer]ORA [employer] kg Corrections: (The following items were deleted from the chart) 02/06 23:10 22:50 Home Meds: Prozac Oral; kg kg 23:55 23:15 CORONAVIRUS+MR.LAB.BRZ ordered. EDMS EDMS 23:58 23:52 Head Brain Wo Cont+CT.RAD.BRZ ordered. EDMS EDMS 02/07 01:00 00:59 FERRITIN+C.LAB.BRZ ordered. EDMS EDMS 01:41 01:10 Telemetry/MedSurg (Inpatient) 7 cg 01:41 01:10 7 cg 13: 01:41 [facility] ER HOLD cg iw : 01:41 ERHOLD- cg iw : 13: iw iw 14: 13:23 221 iw em1
--- NOTE | 2021-02-07 01:41 | P.HP ---
Certification for Inpatient Patient admitted to: Inpatient With expected LOS: >2 Midnights Patient will require the following post-hospital care: None Practitioner: I am a practitioner with admitting privileges, knowledge of patient current condition, hospital course, and medical plan of care. Services: Services provided to patient in accordance with Admission requirements found in Title 42 Section 412.3 of the Code of Federal Regulations Patient History Date of Service: 02/07/21 Primary Care Provider: Dr. Sierra Reason for admission: Syncope, symptomatic anemia History of Present Illness: 65-year-old female with history of alcoholic cirrhosis of the liver, atrial fibrillation questionably on anticoagulation therapy, CAD, hypertension, hyperlipidemia presents emergency department for syncope. Patient reports that she was at a gas station when she had a syncopal episode with collapse and hit her head on the countertop. Patient with bruising/swelling to the right side of the face. Patient was evaluated in the emergency department labs were significant for hemoglobin 4.0 hematocrit 14.5 red blood cells 2.43 platelet 150 troponin 0.02 BNP 2670 6D bili 0.3 AST [address] head brain/C- spine/facial bones negative for acute findings. Patient denies any abdominal pain, reports stools have been brown denies melena, hematochezia, hematemesis or coffee-ground emesis. Patient denies any vomiting reports stool has been soft and brown recently. Patient reports ongoing increasing shortness of breath over the course of last 3 months or so. ED provider has ordered 3 unit packed red blood cells for patient, wishes to admit for further evaluation and management of symptomatic anemia, syncope. Allergies No Known Allergies Allergy (Unverified 12/20/17 21:02) - Past Medical/Surgical History Diabetic: No -: Hypertension -: Tobacco abuse -: Anxiety -: Depression -: Alcoholic cirrhosis of the liver -: CAD -: Hyperlipidemia -: angelique -: jaw surg -: knee surg Psychosocial/ Personal History: Unemployed, lives with a roommate - Family History Father -: Cancer Mother -: Cancer - Social History Smoking Status: Current every day smoker Counseled patient to stop smoking for: less than 10 minutes Smoking therapy provided: No Alcohol use: No CD- Drugs: No Caffeine use: Yes Place of Residence: Home Review of Systems 10-point ROS is otherwise unremarkable Respiratory: Shortness of Breath, SOB with Excertion Physical Examination - Physical Exam General: Alert, In no apparent distress HEENT: Atraumatic, PERRLA, Other (Mucous membranes dry, pale), EOMI Neck: Supple, 2+ carotid pulse no bruit, No LAD, Without JVD or thyroid abnormality Respiratory: Clear to auscultation bilaterally, Normal air movement Cardiovascular: Regular rate/rhythm, Normal S1 S2 Gastrointestinal: Normal bowel sounds, No tenderness Musculoskeletal: No tenderness Integumentary: No rashes Neurological: Normal speech, Normal strength at 5/5 x4 extr, Normal tone, Normal affect Lymphatics: No axilla or inguinal lymphadenopathy - Studies Laboratory Data (last 24 hrs) 02/07/21 00:17: WBC 5.50, Hgb 4.0 L*, Hct 14.5 L*, Plt Count 150 L 02/06/21 23:23: PT 13.8 H, INR 1.20 02/06/21 23:23: Sodium 141, Potassium 4.5, BUN 12, Creatinine 0.74, Glucose 105, Magnesium 2.2, Total Bilirubin 0.6, AST 46 H, ALT 35, Alkaline Phosphatase 88 Assessment and Plan - Plan Assessment: Syncope secondary to symptomatic microcytic anemia Atrial fibrillation questionably on anticoagulation therapy Alcoholic cirrhosis of the liver CAD status post stent Hypertension Hyperlipidemia Plan: Syncope secondary to symptomatic microcytic anemia: Guaiac exam negative in the emergency department stool soft, brown, patient denies melena, hematochezia, hematemesis, coffee-ground emesis. Patient denies any abdominal pain or vomiting. Patient reports she has been anemic in the past, used to be prescribed iron, reports symptoms developed over the course of about 3 months. Will transfuse patient 3 units packed red blood cells in addition to obtaining IVETH labs. Patient reports she had colonoscopy and heart catheterization last year but is opposed to follow-up with both GI and cardiology for further evaluation. We will also provide patient with 40 mg Protonix IV twice daily. Atrial fibrillation questionably on anticoagulation therapy: Patient will work on obtaining home medications, not able to tell me if she is on any anticoagulation therapy or why her home medications are at this time. We will continue with SCDs. Alcoholic cirrhosis of the liver: Appears stable at this time will monitor with daily labs. CAD status post stent: Denies chest pain initial troponin negative/0.03 will trend. Hypertension: Obtain and continue medications, adjust as necessary Hyperlipidemia: Obtain and continue medications, adjust as necessary. DVT PPX: SCD Code status: Full Discharge Plan: Home Plan to discharge in: 48 Hours - Advance Directives Does patient have a Living Will: No Does patient have a Durable POA for Healthcare: No - Code Status/Comfort Care Code Status Assessed: Yes (Full code) Critical Care: No Time Spent Managing Pts Care (In Minutes): 55
[2021-02-07 01:54] LABS: Ferritin 7.3 ng/mL (8-388)
[2021-02-07] MEDS ORDERED: DERMABOND SKIN ADHESIVE TOP ONE (02:03)
[2021-02-07] MEDS ORDERED: PANTOPRAZOLE 40 MG INJ ONE ×2 (02:03→09:26)
[2021-02-07 04:32] VITALS: BMI 22.3
[2021-02-07] MEDS ORDERED: NA CHLORIDE 0.9% 500 ML ONE (05:35)
[2021-02-07] MEDS ORDERED: ACETAMINOPHEN 325 MG TABLET ONE (06:16)
[2021-02-07] MEDS ORDERED: DIPHENHYDRAMINE 50 MG/ML VIAL ONE (06:16)
--- NOTE | 2021-02-07 06:36 | P.PN ---
Subjective Date of Service: 02/07/21 Primary Care Provider: Dr. Sierra Chief Complaint: Syncope, symptomatic anemia Subjective: Improving Physical Examination - Studies Laboratory Data (last 24 hrs) 02/07/21 00:17: WBC 5.50, Hgb 4.0 L*, Hct 14.5 L*, Plt Count 150 L 02/06/21 23:23: PT 13.8 H, INR 1.20 02/06/21 23:23: Sodium 141, Potassium 4.5, BUN 12, Creatinine 0.74, Glucose 105, Magnesium 2.2, Total Bilirubin 0.6, AST 46 H, ALT 35, Alkaline Phosphatase 88 Assessment & Plan Discharge Plan: Home Plan to discharge in: 48 Hours Physician Review Additional Text: COVID: negative CXR: COMPARISON: None. FINDINGS: Single view of the chest was obtained portable. No prior films are available for comparison. The heart is in the upper normal size. The thoracic aorta demonstrate minimal intimal aortic arch calcification. There is blunting right lateral CP angle suggesting the presence of trace pleural effusion with minimal compressive atelectatic changes. There is deformity of the posterior and posterolateral right fifth-eighth ribs. The rest of the soft tissue and bony structures demonstrate to be unremarkable. IMPRESSION: Old fractures posterior and posterolateral right fifth-eighth ribs with the residual trace pleural effusion and/or pleuroparenchymal changes. No focal areas of acute airspace disease. Physical Exam: General: Alert, In no apparent distress HEENT: Atraumatic, PERRLA, Other (Mucous membranes dry, pale), EOMI Neck: Supple, 2+ carotid pulse no bruit, No LAD, Without JVD or thyroid abnormality Respiratory: Clear to auscultation bilaterally, Normal air movement Cardiovascular: Regular rate/rhythm, Normal S1 S2 Gastrointestinal: Normal bowel sounds, No tenderness Musculoskeletal: No tenderness Integumentary: No rashes Neurological: Normal speech, Normal strength at 5/5 x4 extr, Normal tone, Normal affect Lymphatics: No axilla or inguinal lymphadenopathy Impression: Syncope secondary to symptomatic microcytic anemia Atrial fibrillation questionably on anticoagulation therapy Alcoholic cirrhosis of the liver CAD status post stent Hypertension Hyperlipidemia COPD Tobacco abuse Plan: Syncope secondary to symptomatic microcytic anemia: Continue with transfusion. Will get 3 units of blood. Recheck hemoglobin after transfusion. Maintain hemoglobin above 7.0. Guaiac exam negative in the emergency department. Patient with soft stool. No melena, hematochezia or hematemesis. Continue to monitor the patient closely. Continue Protonix. Patient with history of iron deficiency. Patient previously on iron. Will start iron at this time. Patient reports she had colonoscopy and heart catheterization last year but is opposed to follow-up with both GI and cardiology for further evaluation. We will also provide patient with 40 mg Protonix IV twice daily. Atrial fibrillation questionably on anticoagulation therapy: Obtain and verify home medication. Overall stable at this time. No anticoagulation therapy at this time. Alcoholic cirrhosis of the liver: This appears stable. Will monitor closely CAD status post stent: Overall stable. Will monitor closely Hypertension: Obtain and verify home medication. Blood pressure stable at this time. Hyperlipidemia: Obtain and verify home medication COPD: Continue COPD medication Tobacco abuse: Tobacco cessation education provided. Will provide nicotine patch. DVT PPX: SCD Code status: Full Discharge Plan: Home Time Spent Managing Pts Care (In Minutes): 55
[2021-02-07] MEDS ORDERED: ONDANSETRON 4 MG/2 ML VIAL IV PRN (06:39)
[2021-02-07] MEDS ORDERED: SODIUM CHLORIDE 0.9% 10ML INJ IV PRN (06:39)
[2021-02-07] MEDS ORDERED: TRAMADOL HCL 50 MG TAB PO PRN ×2 (06:52→07:33)
[2021-02-07] MEDS ORDERED: HYDROCODONE/APAP 5/325 MG TAB PO PRN (06:52)
[2021-02-07] MEDS ORDERED: IPRATROPIUM BROM 0.5MG/2.5ML NEB PRN (06:53)
[2021-02-07] MEDS ORDERED: ALBUTEROL 2.5 MG/3 ML NEB SOL NEB PRN (06:53)
[2021-02-07] MEDS ORDERED: DOCUSATE NA 100 MG CAP PO PRN ×2 (06:56→07:34)
[2021-02-07] MEDS: ALPRAZOLAM 0.5 MG TABLET PO PRN ×2 (07:03→18:10)
[2021-02-07] MEDS ORDERED: HYDROCODONE/APAP 5/325 MG TAB ONE (07:23)
[2021-02-07] MEDS ORDERED: ALPRAZOLAM 0.5 MG TABLET ONE (07:23)
[2021-02-07] MEDS ORDERED: PNEUMOCOCCAL VACCINE 0.5 ML IMVAC ONE ×2 (08:00→09:27)
[2021-02-07] MEDS: FE SULF/FA/VIT B COMP & C TAB PO SCH (08:00)
[2021-02-07 08:39] LABS: Thyroid Stimulating Hormone 2.69 uIU/mL (0.360-3.740); Troponin I 0.04 ng/mL (0.0-0.045)
[2021-02-07] MEDS: NICOTINE 21 MG/PAT TD SCH (09:00)
[2021-02-07] MEDS: FERROUS SULFATE 325 MG TAB PO SCH ×2 (09:00→21:55)
[2021-02-07] MEDS: DULERA 100/5 (MOMETASONE/FORMOTEROL) INHALER IH SCH ×2 (09:00→21:00)
[2021-02-07] MEDS: PANTOPRAZOLE 40 MG INJ IVP SCH ×2 (09:00→21:55)
[2021-02-07] MEDS: THIAMINE HCL 100 MG TABLET PO SCH (09:00)
[2021-02-07] MEDS: FOLIC ACID 1 MG TABLET PO SCH (09:00)
[2021-02-07] MEDS ORDERED: FUROSEMIDE 20 MG/ 2ML VIAL ONE ×2 (09:26→13:27)
[2021-02-07] MEDS ORDERED: THIAMINE HCL 100 MG TABLET ONE (09:26)
[2021-02-07] MEDS ORDERED: NICOTINE 21 MG/PAT TD ONE (09:26)
[2021-02-07] MEDS ORDERED: FOLIC ACID 1 MG TABLET ONE (09:26)
[2021-02-07] MEDS: FUROSEMIDE 20 MG/ 2ML VIAL IV PRN ×3 (09:30→18:12)
[2021-02-07] MEDS ORDERED: NA CHLORIDE 0.9% 0 ML ONE (10:22)
[2021-02-07] MEDS ORDERED: NA CHLORIDE 0.9% 250 ML ONE ×2 (13:27→15:45)
--- NOTE | 2021-02-07 14:01 | RAD REPORT ---
EXAM DESCRIPTION: Robinson Single View02/07/2021 12:09 am CLINICAL HISTORY: 65 years, Female, SOB COMPARISON: None. FINDINGS: Single view of the chest was obtained portable. No prior films are available for compariso n. The heart is in the upper normal size. The thoracic aorta demonstrate minimal intimal aortic arc h calcification. There is blunting right lateral CP angle suggesting the presence of trace pleural ef fusion with minimal compressive atelectatic changes. There is deformity of the posterior and posterol ateral right fifth-eighth ribs. The rest of the soft tissue and bony structures demonstrate to be unr emarkable. IMPRESSION: Old fractures posterior and posterolateral right fifth-eighth ribs with the residual tra ce pleural effusion and/or pleuroparenchymal changes. No focal areas of acute airspace disease. Electronically signed by: Chandan Del Rio MD 02/07/2021 12:44 AM CDT Due to temporary technical issues with the PACS/Fluency reporting system, reports are being signed by the in house radiologists without review as a courtesy to insure prompt reporting. The interpreting radiologist is fully responsible for the content of the report.
--- NOTE | 2021-02-07 14:04 | RAD REPORT ---
EXAM DESCRIPTION: RAD - Forearm Left - 02/07/2021 12:09 am CLINICAL HISTORY: 65 years, Female, trauma COMPARISON: None. FINDINGS: 2 X-ray views of the left forearm (frontal lateral views) were performed. No areas of acute bony injuries were demonstrated. No gross articular abnormality is identified. There are no gross intraosseous lesions. No periosteal reaction were seen. Findings suggest a small focal area of soft tissue gap within the dorsal aspect of the left wrist. IMPRESSION: No acute bony injuries were demonstrated. Electronically signed by: Chandan Del Rio MD 02/07/2021 12:45 AM CDT Due to temporary technical issues with the PACS/Fluency reporting system, reports are being signed by the in house radiologists without review as a courtesy to insure prompt reporting. The interpreting radiologist is fully responsible for the content of the report.
--- NOTE | 2021-02-07 15:09 | RAD REPORT ---
EXAM DESCRIPTION: CT - Head C Spine Mpr Wo Con - 02/07/2021 6:37 am CLINICAL HISTORY: Trauma COMPARISON: None. TECHNIQUE: CT Head and Cervical spine WO contrast on 02/06/2021 11:12 PM CDT This exam was performed according to our departmental dose-optimization program, which includes autom ated exposure control, adjustment of the mA and/or kV according to patient size and/or use of iterati ve reconstruction technique. FINDINGS: Brain: There is no acute hemorrhage, mass effect or midline shift. There is a small effusi on infarct in the high left basal ganglia. There is no hydrocephalus. There is no significant volume loss for age. The calvarium is intact. Orbits and globes are unremarkable. The paranasal sinuses are clear. There a re postoperative changes of the right mastoid air cells. Cervical Spine: There is no acute fracture. Alignment is anatomic. There is moderate mid cervical fac et arthritis on the left. There is moderate narrowing of the C5-6 and C6-7 discs. Vertebral body heights are preserved. Soft ti ssues are unremarkable. IMPRESSION: No acute postraumatic findings. Electronically signed by: Charles Pete MD 02/06/2021 11:54 PM CDT Due to temporary technical issues with the PACS/Fluency reporting system, reports are being signed by the in house radiologists without review as a courtesy to insure prompt reporting. The interpreting radiologist is fully responsible for the content of the report.
--- NOTE | 2021-02-07 15:12 | EKG ---
Test Date: 2021-02-06 Test Time: 23:42:46 International Guest Coordinator: CAR MEASUREMENT RESULTS: Intervals: Rate: 75 MS: 158 QRSD: 86 QT: 406 QTc: 453 Plummer: P: 63 MS: 158 QRS: 76 T: 239 INTERPRETIVE STATEMENTS: Normal sinus rhythm Nonspecific ST and T wave abnormality Abnormal ECG Compared to ECG 08/29/2020 13:19:03 Atrial premature complex(es) no longer present Possible ischemia no longer present ST (T wave) deviation still present Electronically Signed On 02-07-21 15:10:49 CDT by Coy Nava
--- NOTE | 2021-02-07 15:29 | RAD REPORT ---
EXAM DESCRIPTION: CT - Facial Bones W/ Mpr - 02/07/2021 6:36 am CLINICAL HISTORY: TRAUMA COMPARISON: None. TECHNIQUE: CT MAXILLOFACIAL WITHOUT IV CONTRAST on 02/06/2021 11:12 PM CDT This exam was performed according to our departmental dose-optimization program, which includes autom ated exposure control, adjustment of the mA and/or kV according to patient size and/or use of iterati ve reconstruction technique. FINDINGS: There is no acute fracture. The paranasal sinuses are clear. There is mild right lateral p eriorbital soft tissue swelling there is age-indeterminate deformity of the right nasal bone. Mastoid air cells are clear. Temporomandibular joints are intact. There are no significant soft tissue abnor malities. IMPRESSION: Age indeterminate right nasal bone fracture. Electronically signed by: Charles Pete MD 02/06/2021 11:56 PM CDT Due to temporary technical issues with the PACS/Fluency reporting system, reports are being signed by the in house radiologists without review as a courtesy to insure prompt reporting. The interpreting radiologist is fully responsible for the content of the report.
--- NOTE | 2021-02-07 18:04 | CON ---
Date of Consultation: 02/07/2021 Reason For Consultation: Syncope. History Of Present Illness: Ms. Kumari is a 65-year-old woman, who has a history of alcohol abuse, c irrhosis, depression, hepatitis, hypertension, coronary artery disease, atrial fibrillation. Apparen tly, she was taking an anticoagulant at home, unknown which one it is. She also takes amlodipine, bu spirone, and lisinopril. Came in with syncope, had some injury to her right eye, was found to have a hemoglobin of 4, and negative guaiac stool. Anticoagulation at this time. She has received 2 units of blood. By the time I saw her, she was feeling much better. She denied palpitation and denied an y chest pain. She denied any nausea or vomiting or diaphoresis. She had just been very weak and rhys rt of breath over the last few weeks. Allergies: NONE. Medications: As listed earlier. Social History: As listed earlier. Review of Systems: Negative. Family History: Noncontributory. Physical Examination: General: Ms. Kumari is very pleasant, no acute distress. Vital Signs: Stable. She is in a sinus rhythm at a rate of . HEENT: Negative. Neck: Supple with no bruit. Chest: Clear. Cardiac: Revealed a regular rhythm and rate with S4 gallops. Abdomen: Benign. Extremities: Revealed no clubbing, cyanosis, or edema. Diagnostic Data: EKG is nonspecific. Chest x-ray is negative. BNP is 2676. Hemoglobin was 4, repe at after transfusion is pending. Impression And Plan: This is a patient with atrial fibrillation that is paroxysmal. She is in sinus rhythm now. She should not be on anticoagulation. She has alcohol abuse, cirrhosis, and hepatitis. I would avoid anticoagulation, especially with the view of the anemia right now. I agree with andrade sfusion. I think she needs to continue her lisinopril, amlodipine, and buspirone. I am not so sure what is her previous cardiac history beside the atrial fibrillation, but I will review my records on my office. I believe, was seen in the past. I will make sure she has an outpatient followup down e road, but for now, transfuse her and hold her anticoagulation. Continue other medications. I woul d even avoid aspirin for now, consider GI consultation for endoscopy and maybe a colonoscopy __. This certainly could be related to her liver disease as well. I will discuss the case further w bonnie Sheehan. No cardiac workup recommended at this point. COLLEEN/DIAMANTE Voice ID: [id number] Report ID: [id number]
[2021-02-07 20:15] LABS: Hematocrit 26.3 % (36.0-45.0)
[2021-02-08 02:23] LABS: Urine Appearance CLEAR (Clear); Urine Bilirubin NEGATIVE (Negative); Urine Blood NEGATIVE (Negative); Urine Color YELLOW (Yellow); Urine Glucose NEGATIVE (Negative); Urine Protein NEGATIVE (Negative); Urine Urobilinogen 0.2 mg/dL (0.2-1.0)
[2021-02-08 02:34] LABS: Urine Microscopic Reflex ORDER UMIC
[2021-02-08 02:47] LABS: Urine Bacteria LOADED /HPF (<20); Urine Mucus 1+ /HPF (NONE SEEN); Urine RBC <5 /HPF (NONE SEEN)
--- NOTE | 2021-02-08 06:02 | P.DS ---
Admission Date: 02/07/21 Discharge Date: 02/08/21 Primary Care Provider: Dr. Sierra Disposition: ROUTINE DISCHARGE Discharge Condition: GOOD Reason for Admission: Syncope, symptomatic anemia Consultations: none Procedures: COVID: negative CXR: COMPARISON: None. FINDINGS: Single view of the chest was obtained portable. No prior films are available for comparison. The heart is in the upper normal size. The thoracic aorta demonstrate minimal intimal aortic arch calcification. There is blunting right lateral CP angle suggesting the presence of trace pleural effusion with minimal compressive atelectatic changes. There is deformity of the posterior and posterolateral right fifth-eighth ribs. The rest of the soft tissue and bony structures demonstrate to be unremarkable. IMPRESSION: Old fractures posterior and posterolateral right fifth-eighth ribs with the residual trace pleural effusion and/or pleuroparenchymal changes. No focal areas of acute airspace disease. CT Head/Neck: FINDINGS: Brain: There is no acute hemorrhage, mass effect or midline shift. There is a small effusion infarct in the high left basal ganglia. There is no hydrocephalus. There is no significant volume loss for age. The calvarium is intact. Orbits and globes are unremarkable. The paranasal sinuses are clear. There are postoperative changes of the right mastoid air cells. Cervical Spine: There is no acute fracture. Alignment is anatomic. There is moderate mid cervical facet arthritis on the left. There is moderate narrowing of the C5-6 and C6-7 discs. Vertebral body heights are preserved. Soft tissues are unremarkable. IMPRESSION: No acute postraumatic findings. CT Facial: FINDINGS: There is no acute fracture. The paranasal sinuses are clear. There is mild right lateral periorbital soft tissue swelling there is age-indeterminate deformity of the right nasal bone. Mastoid air cells are clear. Temporomandibular joints are intact. There are no significant soft tissue abnormalities. IMPRESSION: Age indeterminate right nasal bone fracture. Forearm xray: FINDINGS: 2 X-ray views of the left forearm (frontal lateral views) were performed. No areas of acute bony injuries were demonstrated. No gross articular abnormality is identified. There are no gross intraosseous lesions. No periosteal reaction were seen. Findings suggest a small focal area of soft tissue gap within the dorsal aspect of the left wrist. IMPRESSION: No acute bony injuries were demonstrated. Medical Problem List: Syncope secondary to symptomatic microcytic anemia Atrial fibrillation questionably on anticoagulation therapy Alcoholic cirrhosis of the liver CAD status post stent Hypertension Hyperlipidemia COPD Tobacco abuse UTI Prior right nasal bone fracture Brief History of Present Illness: 65-year-old female with history of alcoholic cirrhosis of the liver, paroxysmal atrial fibrillation, CAD, hypertension, hyperlipidemia presents emergency department for syncope. Patient reports that she was at a gas station when she had a syncopal episode with collapse and hit her head on the countertop. Patient with bruising/swelling to the right side of the face. Patient was evaluated in the emergency department labs were significant for hemoglobin 4.0 hematocrit 14.5 red blood cells 2.43 platelet 150 troponin 0.02 BNP 2670 6D bili 0.3 AST [address] head brain/C-spine/facial bones negative for acute findings. Patient denies any abdominal pain, reports stools have been brown denies melena, hematochezia, hematemesis or coffee-ground emesis. Patient denies any vomiting reports stool has been soft and brown recently. Patient reports ongoing increasing shortness of breath over the course of last 3 months or so. Patient was admitted for treatment Hospital Course: Patient presented with syncope secondary to symptomatic anemia. Patient apparently fell. CT head unremarkable. CT facial showed age indeterminate right nasal fracture. Patient was found to be severely anemic. Patient was admitted for further evaluation. Patient denied any melena, hematochezia or hematemesis. Guaiac test was negative. Patient was given 3 units of blood. Hemoglobin now above 8.0. Overall stable. Patient was seen by cardiology due to her history of paroxysmal atrial fibrillation. No intervention was required. Cardiology recommends no anticoagulation therapy including aspirin. There was no GI available. Patient has seen GI in the past. At discharge overall stable. At discharge she will continue with iron 325 mg 1 pill twice daily. Recommend to recheck labCBC and BMP in 1 week. Recommend follow-up with PCP in 1 week to follow-up this hospitalization. Patient should see GI in the next 1 to 2 weeks to follow-up this hospitalization and to further evaluate. Patient will need EGD and colonoscopy in the future. Patient with history of paroxysmal atrial fibrillation, CAD with prior stent, hyperlipidemia. Patient seen and evaluated by cardiology. No intervention was required. At discharge she will continue with her current blood pressure medication. Patient reportedly takes Norvasc 5 mg daily. Recommend to maintain blood pressure less than 130/80. Hold blood pressure medication if less than 110 systolic. If blood pressure remains above 140/90 further adjustment in medication may be required. This can be done with the help of her PCP or cardiology. Patient with alcoholic cirrhosis. Recommend follow-up with GI as an outpatient to further evaluate and treat. Patient with GERD. At discharge recommend to continue Protonix 40 mg daily. Recommend follow-up with GI as directed. Patient with COPD and tobacco abuse. At discharge will recommend to continue nicotine patch daily, Symbicort 2 puffs twice daily, and albuterol 2 puffs 3 times a day as needed for shortness of breath. Recommend follow-up with PCP to further monitor and adjust medication. Vital Signs/Physical Exam: Temp Pulse Resp BP Pulse Ox 97.7 F 61 20 133/69 94 02/08/21 00:00 02/08/21 00:00 02/08/21 00:00 02/08/21 00:00 02/08/21 00:00 General: Alert, In no apparent distress, Oriented x3, Cooperative HEENT: Atraumatic Neck: Supple Respiratory: Clear to auscultation bilaterally, Normal air movement Cardiovascular: Normal pulses, Regular rate/rhythm Gastrointestinal: Normal bowel sounds, Soft and benign, Non-distended Musculoskeletal: No erythema, No tenderness, No warmth Integumentary: No tenderness/swelling Neurological: Normal speech, Normal strength at 5/5 x4 extr, Normal tone Laboratory Data at Discharge: WBC 5.50 K/uL (4.3-10.9) 02/07/21 00:17 Hgb 8.1 g/dL (12.0-15.0) L D 02/07/21 19:55 Hct 26.3 % (36.0-45.0) L D 02/07/21 19:55 Plt Count 150 K/uL (152-406) L 02/07/21 00:17 PT 13.8 SECONDS (9.5-12.5) H 02/06/21 23:23 INR 1.20 02/06/21 23:23 Sodium 141 mmol/L (136-145) 02/06/21 23:23 Potassium 4.5 mmol/L (3.5-5.1) 02/06/21 23:23 BUN 12 mg/dL (7-18) 02/06/21 23:23 Creatinine 0.74 mg/dL (0.55-1.3) 02/06/21 23:23 Glucose 105 mg/dL (74-106) 02/06/21 23:23 Magnesium 2.2 mg/dL (1.8-2.4) 02/06/21 23:23 Total Bilirubin 0.6 mg/dL (0.2-1.0) 02/06/21 23:23 AST 46 U/L (15-37) H 02/06/21 23:23 ALT 35 U/L (12-78) 02/06/21 23:23 Alkaline Phosphatase 88 U/L (45-117) 02/06/21 23:23 Troponin I 0.03 ng/mL (0.0-0.045) 02/07/21 14:10 Triglycerides 28 mg/dL (<150) 02/07/21 07:52 Cholesterol 53 mg/dL (<200) 02/07/21 07:52 HDL Cholesterol 31 mg/dL (40-60) L 02/07/21 07:52 Cholesterol/HDL Ratio 1.71 02/07/21 07:52 Home Medications: Aspirin 81 mg PO DAILY 02/08/21 Atorvastatin Calcium [Lipitor] 40 mg PO BEDTIME 02/08/21 Clopidogrel Bisulfate [Plavix] 75 mg PO DAILY 02/08/21 Lisinopril [Zestril] 40 mg PO DAILY 02/08/21 carvediloL [Coreg] 12.5 mg PO BID 02/08/21 Physician Discharge Instructions: Patient presented with syncope secondary to symptomatic anemia. Patient appare ntly fell. CT head unremarkable. CT facial showed age indeterminate right nasal fracture. Patient was found to be severely anemic. Patient was admitted for further evaluation. Patient denied any melena, hematochezia or hematemesis. Guaiac test was negative. Patient was given 3 units of blood. Hemoglobin now above 8.0. Overall stable. Patient was seen by cardiology due to her history of paroxysmal atrial fibrillation. No intervention was required. Cardiology recommends no anticoagulation therapy including aspirin. There was no GI available. Patient has seen GI in the past. At discharge overall stable. At discharge she will continue with iron 325 mg 1 pill twice daily. Recommend to recheck labCBC and BMP in 1 week. Recommend follow-up with PCP in 1 week to follow-up this hospitalization. Patient should see GI in the next 1 to 2 weeks to follow-up this hospitalization and to further evaluate. Patient will need EGD and colonoscopy in the future. Patient with history of paroxysmal atrial fibrillation, CAD with prior stent, hyperlipidemia. Patient seen and evaluated by cardiology. No intervention was required. At discharge she will continue with her current blood pressure medication. Patient reportedly takes Norvasc 5 mg daily. Recommend to maintain blood pressure less than 130/80. Hold blood pressure medication if less than 110 systolic. If blood pressure remains above 140/90 further adjustment in medication may be required. This can be done with the help of her PCP or cardiology. Patient with alcoholic cirrhosis. Recommend follow-up with GI as an outpatient to further evaluate and treat. Patient with GERD. At discharge recommend to continue Protonix 40 mg daily. Recommend follow-up with GI as directed. Patient with COPD and tobacco abuse. At discharge will recommend to continue nicotine patch daily, Symbicort 2 puffs twice daily, and albuterol 2 puffs 3 times a day as needed for shortness of breath. Recommend follow-up with PCP to further monitor and adjust medication. Diet: AHA Activity: Fall precautions Time spent managing pt's care (in minutes): 55
[2021-02-08 06:26] LABS: Absolute Lymphocytes (CBC) 1.4 K/uL (0.7-4.9); Basophils % 0.7 % (0-1.3); Hematocrit 25.9 % (36.0-45.0); Lymphocytes % 34.8 % (15.3-44.8); RBC Red Blood Cell Count 3.51 M/uL (3.86-4.86)
[2021-02-08 06:53] LABS: ALT/SGPT 27 U/L (12-78); AST/SGOT 37 U/L (15-37); Albumin 2.7 g/dL (3.4-5.0); Alkaline Phosphatase 70 U/L (45-117); BUN Blood Urea Nitrogen 11 mg/dL (7-18); Bicarbonate 28 mmol/L (21-32); Bilirubin Total 0.9 mg/dL (0.2-1.0); Glucose Level 73 mg/dL (74-106); Magnesium 2.1 mg/dL (1.8-2.4); Potassium 3.6 mmol/L (3.5-5.1); Sodium Level 143 mmol/L (136-145)
[2021-02-08] MEDS: NICOTINE 21 MG/PAT TD SCH (08:48)
[2021-02-08] MEDS: FE SULF/FA/VIT B COMP & C TAB PO SCH (08:49)
[2021-02-08] MEDS: THIAMINE HCL 100 MG TABLET PO SCH (08:49)
[2021-02-08] MEDS: FOLIC ACID 1 MG TABLET PO SCH (08:50)
[2021-02-08] MEDS: FERROUS SULFATE 325 MG TAB PO SCH (08:50)
[2021-02-08] MEDS: DULERA 100/5 (MOMETASONE/FORMOTEROL) INHALER IH SCH (08:51)
[2021-02-08] MEDS: PANTOPRAZOLE 40 MG INJ IVP SCH (08:55)
[2021-02-08] MEDS ORDERED: POTASSIUM CL SA 10 MEQ TAB PO ONE (09:00)
[2021-02-08 09:03] VITALS: O2SAT 93
[2021-02-08 09:56] LABS: Anisocytosis 3+; Blood Morphology Comment NOTED (NOT SEEN); Hypochromasia 2+; Ovalocytes 1+; Platelet Estimate DECR; Polychromasia 1+; Target Cells 1+; White Blood Cell Scan OK (OK)
[2021-02-08] MEDS ORDERED: CEFTRIAXONE 1 GM/NS 50 ML 1 GM/50 ML BAG IV SCH (11:41)
--- NOTE | 2021-02-08 11:46 | PN ---
Date of Progress Note: 02/08/2021 Ms. Kumari was admitted with a hemoglobin of 4, paroxysmal atrial fibrillation. She is in sinus rhyt hm and does not need to be on anticoagulation. When the hemoglobin was 4, she got transfused. Her h emoglobin today is 8. She remains in sinus rhythm. I think she needs to go home only on lisinopril and Norvasc. We will be happy to see her as an outpatient. No cardiac workup is necessary. COLLEEN/DIAMANTE Voice ID: [id number] Report ID: [id number]
[2021-02-08] MEDS ORDERED: CEFTRIAXONE/SWI 1gm 1 GM/10 ML SYR IV SCH (12:00)
[2021-02-08 15:53] VITALS: BP 182/80; TEMP 98
== END 2021-02-08 14:58 | disposition home or self-care (01) | DRG 812 ==
LOC: ER 21:42 → ERHOLD 02-07 01:33 → 2ND 02-07 14:10
PROVIDERS: ADMIT Family Medicine; ATTEND Family Medicine
PROC: 30233N1 Transfusion of Nonautologous Red Blood Cells into Peripheral Vein, Percutaneous Approach (ICD-10-PCS; principal; 2021-02-07)
DX: D50.9 Iron deficiency anemia, unspecified (principal); N39.0 Urinary tract infection, site not specified; K70.30 Alcoholic cirrhosis of liver without ascites; I25.10 Atherosclerotic heart disease of native coronary artery without angina pectoris; I10 Essential (primary) hypertension; E78.5 Hyperlipidemia, unspecified; J44.9 Chronic obstructive pulmonary disease, unspecified; F17.210 Nicotine dependence, cigarettes, uncomplicated; I48.0 Paroxysmal atrial fibrillation; S00.83XA Contusion of other part of head, initial encounter; W18.39XA Other fall on same level, initial encounter; Z95.5 Presence of coronary angioplasty implant and graft; Z20.822 Contact with and (suspected) exposure to COVID-19; Z23 Encounter for immunization
CPT/HCPCS: 36415; 70450; 70486; 71045; 72125; 76377; 80048; 80053; 80061; 80076; 81003; 81015; 82728; 83540; 83615; 83735; 83880; 84439; 84443; 84466; 84484; 85014; 85018; 85025; 85610; 86850; 86900; 86901; 87077; 87086; 87088; 87186; 90471; 90732; 93005; 94010; 96374; 99285; C9113; G0390; J0696; J1200; J1940; J7040; J7050; J7606; P9016; U0003

== ENCOUNTER 2021-04-08 10:59 | Emergency (ER) | payer OTHER ==
[2021-04-08] MEDS ORDERED: HYDROCODONE/APAP 5/325 MG TAB ONE (11:42)
--- NOTE | 2021-04-08 12:14 | RAD REPORT ---
EXAM DESCRIPTION: RAD - Knee Left 3 View - 04/08/2021 11:49 am CLINICAL HISTORY: Left knee pain FINDINGS: No fracture or dislocation is seen. Marked osteoarthritis involves the medial compartment consisting joint space narrowing, subchondral s clerosis and osteophytes. Soft tissue swelling. There probably is a moderate joint effusion
--- NOTE | 2021-04-08 12:45 | EDPHYS ---
Physician Documentation [facility] Name: Lakeisha Kumari Age: 66 yrs Sex: Female : 1955 Arrival Date: 04/08/2021 Time: 11: Bed 14 Private MD: ED Physician Ortiz Woods HPI: 04/08 12:39 This 66 yrs old Female presents to ER via Wheelchair with complaints of Knee rn Pain, Ear Pain. 12:39 The patient presents with an injury, pain, swelling. The complaints affect the left rn knee. Onset: The symptoms/episode began/occurred 2 day(s) ago. Modifying factors: The symptoms are alleviated by remaining still, the symptoms are aggravated by movement, weight bearing, bending knee. Associated signs and symptoms: Pertinent positives: swelling, Pertinent negatives fever, warmth, weakness. Severity of symptoms: At their worst the symptoms were moderate, in the emergency department the symptoms have improved. The patient has experienced similar episodes in the past. The patient has not recently seen a physician. Patient reports 2 days ago fell and struck medial left knee on the ground. Reports increased swelling and painful range of motion. Reports has a bad knee and when injures swells up. Reports increased swelling of the left knee over the last couple days after falling and injury. Denies fever or warmth.. Historical: - Allergies: 11:11 No Known Allergies; ss - PMHx: 11:11 "Heart attack or a stroke"; Alcoholism; Anxiety; Atrial Fib; Cirrhosis; Depression; ss gastric ulcer; Hepatitis; Hypertension; - PSHx: 11:11 cardiac stent; Cholecystectomy; Jaw Sx; ss - Immunization history:: Client reports having NOT received the Covid vaccine. - Social history:: Smoking status: Patient reports the use of cigarette tobacco products, smokes one pack cigarettes per day. - Family history:: not pertinent. - Hospitalizations: : No recent hospitalization is reported. ROS: 12:39 Constitutional: Negative for fever, chills, and weight loss, MS/Extremity: Positive for rn injury and swelling to left knee Skin: Negative for injury, rash, and discoloration, Neuro: Negative for headache, weakness, numbness, tingling, and seizure. Exam: 12:39 Constitutional: This is a well developed, well nourished patient who is awake, alert, rn and in no acute distress. Skin: Warm, dry with normal turgor. Normal color with no rashes, no lesions, and no evidence of cellulitis. MS/ Extremity: Pulses equal, no cyanosis. Neurovascular intact. Mild painful range of motion left knee with palpable mild to moderate knee effusion. No open wounds. No warmth. Neuro: Awake and alert, GCS 15 12:39 ENT: External ear(s): Left auditory canal with bedbug inside. rn Vital Signs: 11:12 BP 145 / 69; Pulse 65; Resp 17; Temp 97.6(TE); Pulse Ox 100% ; Height 5 ft. 4 in. ss (162.56 cm); Pain 9/10; 13:21 BP 158 / 99; Pulse 63; Resp 17; Pulse Ox 98% on R/A; jt3 Procedures: 12:39 Foreign Body Removal: Bedbug, from the left ear canal, by normal saline irrigation, The rn patient tolerated the removal well. MDM: 11:09 Patient medically screened. rn 12:39 Differential diagnosis: closed fracture, contusion, Knee effusion. Data reviewed: vital rn signs, nurses notes, radiologic studies, plain films, and as a result, I will discharge patient. Test interpretation: by ED physician or midlevel provider: plain radiologic studies, X-ray left knee negative for acute fracture or dislocation. Counseling: I had a detailed discussion with the patient and/or guardian regarding: the historical points, exam findings, and any diagnostic results supporting the discharge/admit diagnosis, radiology results, the need for outpatient follow up, to return to the emergency department if symptoms worsen or persist or if there are any questions or concerns that arise at home. Response to treatment: the patient's symptoms have mildly improved after treatment, and as a result, I will discharge patient. Special discussion: I discussed with the patient/guardian in detail that at this point there is no indication for admission to the hospital. It is understood, however, that if the symptoms persist or worsen the patient needs to return immediately for re-evaluation. Based on the history and exam findings, there is no indication for further emergent testing or inpatient evaluation. I discussed with the patient/guardian the need to see the orthopedic surgeon for further evaluation of the symptoms. 04/08 11:22 Order name: XRAY Knee LEFT 3 view; Complete Time: 12:27 rn Administered Medications: 12:07 Drug: HYDROcodone-acetaminophen 5 mg-325 mg 1 tabs Route: PO; jt3 12:45 Follow up: Response: No adverse reaction; Pain is decreased jt3 Disposition Summary: 04/08/21 12:44 Discharge Ordered Location: Home rn Problem: new rn Symptoms: have improved rn Condition: Stable rn Diagnosis - Contusion of left knee rn - Effusion, left knee rn - Foreign body in left ear canal - Bug rn Followup: rn - With: Private Physician - When: As needed - Reason: Recheck today's complaints, Re-evaluation by your physician Discharge Instructions: - Discharge Summary Sheet rn - Contusion rn - Knee Effusion rn Forms: - Medication Reconciliation Form rn - Thank You Letter rn - Antibiotic referral rn - Prescription Opioid Use rn Signatures: Dispatcher [employer] Ortiz Carrion MD MD rn Smirch, Shelby RN RN Malcom Temple, RN RN jt3
--- NOTE | 2021-04-08 12:45 | ER ---
Nurse's Notes [facility] Name: Lakeisha Kumari Age: 66 yrs Sex: Female : 1955 Arrival Date: 04/08/2021 Time: 11:02 Bed 14 Private MD: Diagnosis: Contusion of left knee;Effusion, left knee;Foreign body in left ear canal - Bug Presentation: 04/08 11:12 Chief complaint: Patient states: L knee pain and swelling since her fall on Tuesday. R ss ear draining liquid, and feels dizzy for awhile now. No known fever. Coronavirus screen: Vaccine status: Patient reports being unvaccinated. Client denies travel out of the [place] in the last 14 days. At this time, the client does not indicate any symptoms associated with coronavirus-19. Ebola Screen: Patient denies travel to an Ebola-affected area in the 21 days before illness onset. Initial Sepsis Screen: Does the patient meet any 2 criteria? No. Patient's initial sepsis screen is negative. Does the patient have a suspected source of infection? Yes: Bone or joint infection. Risk Assessment: Do you want to hurt yourself or someone else? Patient reports no desire to harm self or others. Onset of symptoms was April 06, 2021. 11:12 Method Of Arrival: Wheelchair ss 11:12 Acuity: KVNG 3 ss Historical: - Allergies: 11:11 No Known Allergies; ss - PMHx: 11:11 "Heart attack or a stroke"; Alcoholism; Anxiety; Atrial Fib; Cirrhosis; Depression; ss gastric ulcer; Hepatitis; Hypertension; - PSHx: 11:11 cardiac stent; Cholecystectomy; Jaw Sx; ss - Immunization history:: Client reports having NOT received the Covid vaccine. - Social history:: Smoking status: Patient reports the use of cigarette tobacco products, smokes one pack cigarettes per day. - Family history:: not pertinent. - Hospitalizations: : No recent hospitalization is reported. Screenin:36 Abuse screen: Denies threats or abuse. Denies injuries from another. Nutritional jt3 screening: No deficits noted. Tuberculosis screening: No symptoms or risk factors identified. Fall Risk None identified. Assessment: 11:36 General: Appears in no apparent distress. Behavior is calm, cooperative. Pain: jt3 Complains of pain in left leg Pain does not radiate. Pain currently is 7 out of 10 on a pain scale. Quality of pain is described as throbbing, Pain began 2-3 days ago. EENT: Reports Drainage to the right ear. Pt. reports dizziness from this. On inspection, wax build up of the right ear. Left ear has a small arthropod in it. . Vital Signs: 11:12 BP 145 / 69; Pulse 65; Resp 17; Temp 97.6(TE); Pulse Ox 100% ; Height 5 ft. 4 in. ss (162.56 cm); Pain 9/10; 13:21 BP 158 / 99; Pulse 63; Resp 17; Pulse Ox 98% on R/A; jt3 ED Course: 11:02 Patient arrived in ED. as 11:09 Ortiz Woods MD is Attending Physician. rn 11:11 Arm band placed on Patient placed in an exam room, on a stretcher. ss 11:14 Triage completed. ss 11:16 Malcom Temple RN is Primary Nurse. jt3 11:36 Patient has correct armband on for positive identification. Bed in low position. Side jt3 rails up X 1. Side rails up X2. 11:36 No provider procedures requiring assistance completed. jt3 11:49 XRAY Knee LEFT 3 view In Process Unspecified. EDMS 12:44 Ear irrigation: with Other Irrigated bilateral ears. Patient tolerated well. jt3 Administered Medications: 12:07 Drug: HYDROcodone-acetaminophen 5 mg-325 mg 1 tabs Route: PO; jt3 12:45 Follow up: Response: No adverse reaction; Pain is decreased jt3 Outcome: 12:44 Discharge ordered by . rn 13:20 Discharged to home via wheelchair. jt3 13:20 Condition: stable 13:20 Discharge instructions given to patient, Pt. did not want to wait to ask Dr. Woods about drops for her ears. 13:22 Patient left the ED. jt3 Signatures: Dispatcher [employer] EDMS Deborah Newman Roman, MD MD rn Smirch, Shelby, RN RN Malcom Temple RN RN jt3
[2021-04-08 13:47] VITALS: TEMP 97.6
[2021-04-08 13:48] VITALS: BP 158/99; O2SAT 98
--- OUTSIDE RECORDS SUMMARY | 2021-04-18 09:30 | XMS REPORT | Continuity of Care Document ---
:1955 Author Organization [facility] t Address [address] [place] [address] Care Team Providers Name Role Phone Pcp Primary Care Physician Unavailable LEON Attending Clinician Unavailable MEAGHAN IRENE Attending Clinician Unavailable NEAL WRIGHT ([place]) Attending Clinician Unavailable Galen MCKEON Attending Clinician GALEN Attending Clinician Unavailable Leon BURGOS Attending Clinician Reji Maria MD Attending Clinician Neal Wright MD ([place]) Attending Clinician LEON Admitting Clinician Unavailable MEAGHAN IRENE Admitting Clinician Unavailable MARYSOL Admitting Clinician Unavailable Payers Payer Name Policy Type Policy Number Effective Date Expiration Date S [facility] [id number] 2019 PF 00:00:00 [facility] [id number] 2020 00:00:00 [facility] [id number] 2020 00:00:00 Problems Condition Condition Condition Status Onset Resolution [...] Disease Active [facility] Hypomagnes Hypomagnes Disease Active 2020-[address] emia emia 12-24 [facility] 00 [place] Hypokalemi Hypokalemi Disease Active 2020-[address] a a 12-24 [facility] - 00:[facility]: Medical 00 [place] Perforatio Perforatio Disease Active 2020-[address] n bowel n bowel 12-23 [facility] - [facility] 00 Center Allergies, Adverse Reactions, Alerts Allergy Allergy Status Severity Reaction(s) Onset Inactive Treating Comm ents Source Name Type Date Date Clinician NO KNOWN Allergy Active [facility] ALLERGIE S Social History Social Habit Start Date Stop Date Quantity Comments Source History of tobacco Cigarette Smoker [facility] use [facility] History Formerly named [facility] Alcohol Binge Medical [facility] Sex Assigned At [facility] Tobacco use and 2020-12-05 2020-12-05 Never used [facility] - exposure 00:00:00 00:00:00 [facility] Alcohol intake 2020-12-05 2020-12-05 Current drinker [facility] 00:[facility] 00:00:00 of alcohol Medical Center (finding) History [facility] 2019-12-25 2019-12-25 [facility] Frequency 00:00:00 00:00:00 [facility] History [facility] 2019-12-25 2019-12-25 1 [facility] - Alcohol Std Drinks 00:00:00 00:00:00 [facility] Alcohol Comment 2019-12-25 2019-12-25 quit a year ago [facility] - 00:00:00 00:00:00 [facility] Smoking Status Start Date Stop Date Source Current every day smoker 2020-12-05 00:00:00 [facility] Medications Ordered Filled Start Stop Current Ordering Indication Dosage Frequency Signature Comments Components Source Medication Medication Date Date Medication? Clinician (SIG) Name Name atorvastati Yes 40mg QD Take [address] [facility] (LIPITOR) 7- tablet (40 Dipika kes - 40 MG 00:00: mg total) Medical tablet 00 by mouth Center nightly. carvediloL Yes 12.5mg Q.5D Take [address] [facility] (COREG) 7-02 tablet [facility] - 12.5 MG 00:00: (12.5 mg Medica l tablet 00 total) by Center mouth 2 (two) times daily. clopidogreL 2021-0 Yes 75mg QD Take [address] [facility] [address] (PLAVIX) 75 7-02 tablet (75 Dipika kes - mg tablet 00:00: mg total) Med ical 00 by mouth Center daily. lisinopriL 2021-0 Yes 40mg QD [facility] (PRINIVIL,Z 7-02 tablet (40 Dipika kes - ESTRIL) 40 00:00: mg total) Me dical MG tablet 00 by mouth Center daily. atorvastati 2021-0 Yes 40mg QD Take [address] [facility] [address] [facility] (LIPITOR) 7-02 tablet (40 Dipika kes - 40 MG 00:00: mg total) Medical tablet 00 by mouth Center nightly. carvediloL 2021-0 Yes 12.5mg Q.5D Take [address] [facility] [address] (COREG) 7-02 tablet [facility] - 12.5 MG 00:00: (12.5 mg Medica l tablet 00 total) by Center mouth 2 (two) times daily. clopidogreL 2021-0 Yes 75mg QD Take [address] [facility] [address] (PLAVIX) 75 7-02 tablet (75 Dipika kes - mg tablet 00:00: mg total) Med ical 00 by mouth Center daily. lisinopriL 2021-0 Yes 40mg QD Take [facility] (PRINIVIL,Z 7-02 tablet (40 Dipika kes - ESTRIL) 40 00:00: mg total) Me dical MG tablet 00 by mouth Center daily. aspirin 81 2021-0 Yes 81mg QD Take [facility] MG chewable 4-02 tablet (81 Dipika kes - tablet 00:00: mg total) Medica l 00 by mouth Center daily. pantoprazol 2021-0 Yes 40mg Take [address] [facility] e 4-02 tablet (40 [facility] - (PROTONIX) 00:00: mg total) Me dical 40 MG 00 by mouth Center tablet every morning before breakfast. aspirin 81 2021-0 Yes 81mg QD Take 1 [facility] MG chewable 4-02 tablet (81 Dipika kes - tablet 00:00: mg total) Medica l 00 by mouth Center daily. pantoprazol 2021-0 Yes 40mg Take [address] [facility] e 4-02 tablet (40 [facility] - (PROTONIX) 00:00: mg total) Me dical 40 MG 00 by mouth Center tablet every morning before breakfast. clopidogreL 2020- No 75mg QD Take [address] [facility] (PLAVIX) 75 4- 07-02 tablet (75 L ukes - mg tablet 00:00: 00:00 mg total) Me dical 00 :00 by mouth Center daily. clopidogreL 2020-0 202- No 75mg QD Take [address] [facility] [address] (PLAVIX) 75 4-02 07-02 tablet (75 L ukes - mg tablet 00:00: 00:00 mg total) Me dical 00 :00 by mouth Center daily. hydrOXYzine 2020-0 2020- No 25mg Take [address] [facility] [address] (ATARAX) 25 09-04 04-01 by mouth 3 L ukes - MG tablet 10:36: 00:00 (three) Medi tessy 43 :00 times Center daily as needed for Itching. hydrOXYzine 2020-0 2020- No 25mg Take [address] [address] (ATARAX) 25 09-04-01 by mouth 3 L ukes - MG tablet 10:36: 00:00 (three) Medi tessy 43 :00 times Center daily as needed for Itching. HYDROcodone 2020-0 Yes 1{tbl} Take [address] -acetaminop 4-01 tablet by Vikas [facility] - hen (NORCO 00:00: mouth Medica l 5-325) 00 every 6 Center 5-325 mg (six) per tablet hours as needed. Max Daily Amount: 4 tablets LORazepam Yes .5mg Take [address] [facility] (ATIVAN) 4-01 tablet [facility] - 0.5 MG 00:00: (0.5 mg Medical tablet 00 total) by Center mouth every 8 (eight) hours as needed for Anxiety. Max Daily Amount: 1.5 mg HYDROcodone 2020-0 Yes 1{tbl} Take [address] -acetaminop 4-01 tablet by Vikas es - hen (NORCO 00:00: mouth Medica l 5-325) 00 every 6 Center 5-325 mg (six) per tablet hours as needed. Max Daily Amount: 4 tablets LORazepam 2020-0 Yes .5mg Take [address] [facility] (ATIVAN) 4-01 tablet [facility] - 0.5 MG 00:00: (0.5 mg Medical tablet 00 total) by Center mouth every 8 (eight) hours as needed for Anxiety. Max Daily Amount: 1.5 mg atorvastati 2020- No 40mg QD Take [address] [facility] [facility] (LIPITOR) 09-04 tablet (40 L ukes - 40 MG 00:00: 00:00 mg total) Medica l tablet 00 :00 by mouth Center nightly. carvediloL 2020- No 25mg Q.5D Take [address] [facility] (COREG) 25 09-04 tablet (25 Dipika kes - MG tablet 00:00: 00:00 mg total) Me dical 00 :00 by mouth 2 Center (two) times daily. lisinopriL 2020- No 40mg Q.5D Take [address] [facility] (PRINIVIL,Z 09-04 tablet (40 L ukes - ESTRIL) 40 00:00: 00:00 mg total) M edical MG tablet 00 :00 by mouth 2 Cent er (two) times daily. atorvastati 2020- No 40mg QD Take [address] [facility] [facility] (LIPITOR) 09-04 tablet (40 L ukes - 40 MG 00:00: 00:00 mg total) Medica l tablet 00 :00 by mouth Center nightly. carvediloL 2020- No 25mg Q.5D Take [address] (COREG) 25 09-04 tablet (25 Dipika kes - MG tablet 00:00: 00:00 mg total) Me dical 00 :00 by mouth 2 Center (two) times daily. lisinopriL 2020- No 40mg Q.5D Take [address] [facility] (PRINIVIL,Z 09-04 tablet (40 L ukes - ESTRIL) 40 00:00: 00:00 mg total) M edical MG tablet 00 :00 by mouth 2 Cent er (two) times daily. omeprazole 2020- No [facility] (PriLOSEC) 3- 04-01 [facility] - 40 MG 00:00: 00:00 Medical capsule 00 :00 Center omeprazole 2020- No [facility] (PriLOSEC) 3-28 09- [facility] - 40 MG 00:00: 00:00 Medical capsule 00 :00 [place] Ciprodex 2020- No [facility] 0.3-0.1 % 08-12 [facility] - otic 00:00: 00:00 Medical suspension 00 :00 [place] Ciprodex 2020- No [facility] 0.3-0.1 % 08-12 [facility] - otic 00:00: 00:00 Medical suspension 00 :00 [place] Vital Signs Vital Name Observation Time Observation Value Comments Source WEIGHT 2020-08-30 08:00:00 51.256 kg HEIGHT 2020-08-30 08:00:00 162.6 cm HEIGHT 2019-12-24 00:00:00 162.6 cm WEIGHT 2019-12-24 00:00:00 59.2 kg HEIGHT 2020-12-05 14:55:00 162.6 cm WEIGHT 2020-12-05 14:55:00 49.442 kg WEIGHT 2020-08-30 08:00:00 51.256 kg HEIGHT 2020-08-30 08:00:00 162.6 cm HEIGHT 2019-12-24 00:00:00 162.6 cm WEIGHT 2019-12-24 00:00:00 59.2 kg Systolic blood 2020-12-05 14:55:00 102 mm[Hg] [facility] Diastolic blood 2020-12-05 14:55:00 57 mm[Hg] [facility] Heart rate 2020-12-05 14:55:00 60 /min [facility] Body temperature 2020-12-05 14:55:00 36.22 Ivonne [facility] Body height 2020-12-05 14:55:00 162.6 cm [facility] Body weight 2020-12-05 14:55:00 49.442 kg [facility] BMI 2020-12-05 14:55:00 18.71 kg/m2 [facility] Oxygen saturation in 2020-12-05 14:55:00 99 /min [facility] - Arterial blood by Medical Ce nter Pulse oximetry Respiratory rate 2020-12-05 14:21:00 18 /min [facility] Procedures Procedure Date / Time Performed Performing Clinician Shaquille laure ECG 12-LEAD 2020-12-09 14:03:00 Marlee Yang [facility] CBC W/PLT COUNT & AUTO 2020-09-04 02:44[facility] (7) 2020-09-04 02:44:00 Ewing, [facility] MAGNESIUM 2020-09-04 02:44:00 Ewing [facility] PHOSPHORUS 2020-09-04 02:44:00 Ewing [facility] CBC W/PLT COUNT & AUTO 2020-09-03 04:32:[facility] BASIC METABOLIC PANEL (7) 2020-09-03 04:32:00 Ewing, [facility] MAGNESIUM 2020-09-03 04:32:00 Ewing [facility] PHOSPHORUS 2020-09-03 04:32:00 Ewing [facility] CBC W/PLT COUNT & AUTO 2020-09-02 04:48:[facility] BASIC METABOLIC PANEL (7) 2020-09-02 04:48:00 Ewing, [facility] MAGNESIUM 2020-09-02 04:48:00 Ewing, [facility] PHOSPHORUS 2020-09-02 04:48:00 Ewing [facility] POCT-GLUCOSE METER 2020-09-01 23:56:00 [facility] 2020-09-01 18:00:[facility] 2020-09-01 16:26:00 Luis Alberto Wright [facility] '[facility] POCT-GLUCOSE METER 2020-09-01 12:20:00 [facility] POCT-GLUCOSE METER 2020-09-01 12:02:00 Leon [facility] APTT 2020-09-01 09:33:00 Luis Alberto Wright [facility] CBC (HEMOGRAM ONLY) 2020-09-01 04:08:00 Luis Alberto Wright [facility] BASIC METABOLIC PANEL (7) 2020-09-01 04:08:00 Jay [facility] MAGNESIUM 2020-09-01 04:08:00 Kaylin [facility] PHOSPHORUS 2020-09-01 04:08:00 [facility] 2020-09-01 01:10:00 Luis Alberto Wrightpham [facility] PREPARE LEUKO-REDUCED RBC 2020-08-31 23:54:00 Jason [facility] APTT 2020-08-31 15:24:00 Luis Alberto Wright [facility] TROPONIN I 2020-08-31 06:15:00 Leon [facility] APTT 2020-08-31 06:15:00 [facility] CBC (HEMOGRAM ONLY) 2020-08-31 04:27:00 Luis Alberto Wright [facility] COMPREHENSIVE METABOLIC 2020-08-31 04:27:00 Leon [facility] MAGNESIUM 2020-08-31 04:27:00 Jason [facility] PHOSPHORUS 2020-08-31 04:27:[facility]OP[facility] 2020-08-31 00:02:00 Leon [facility] APTT 2020-08-30 22:00:00 Park, Quocdai [facility] 2D ECHO W/ DOPPLER 2020-08-30 15:56:28 Galen [facility] (CW/PW/COLOR) [facility] PLATELET COUNT 2020-08-30 13:51:00 Luis Alberto Wright [facility] APTT 2020-08-30 13:51:00 Luis Alberto Wright [facility] OCCULT BLOOD, STOOL 2020-08-30 07:29:00 [facility] TROPONIN I 2020-08-30 05:01:00 [facility] LIPID PANEL 2020-08-30 05:01:00 [facility] B-TYPE NATRIURETIC FACTOR 2020-08-30 05:01:00 [facility] (BNP) [facility] CBC W/PLT COUNT & AUTO 2020-08-30 05:01:00 [facility] BASIC METABOLIC PANEL (7) 2020-08-30 05:01:00 [facility] MAGNESIUM 2020-08-30 05:01:00 Galen [facility] TRANSFUSE LEUKO-REDUCED 2020-08-30 04:29:41 JasonGabriel [facility] RED BLOOD CELLS [facility] RAPID DRUG SCREEN, URINE 2020-08-30 04:05:00 [facility] TYPE AND SCREEN, 2020-08-29 23:42:00 [facility] PROTHROMBIN TIME/INR 2020-08-29 22:37:00 [facility] MAGNESIUM 2020-08-29 22:37:00 [facility] TROPONIN I 2020-08-29 22:37:00 [facility] CBC W/PLT COUNT & AUTO 2020-08-29 22:37:00 JasonGabriel [facility] (MANUAL DIFFERENTIAL) 2020-08-29 22:37:00 [facility] BASIC METABOLIC PANEL (7) 2020-08-29 22:37:00 [facility] HEPATIC FUNCTION PANEL 2020-08-29 22:37:00 Jason [facility] HEMOGLOBIN A1C 2020-08-29 22:37:00 [facility] ECG 12-LEAD 2020-08-29 22:24:57 Unknown, Hl7 Doctor [facility] CARDIAC CATH REPORT - 2020-08-29 00:00:00 Provider, Default [facility] SCAN Scanning [facility] REPORT OF PROCEDURE - 2020-08-29 00:00:00 Provider, Default [facility] ENDOSCOPY SCAN [facility] Plan of Care Planned Activity Planned Date Details Comments Source Future Scheduled 2023-08-[address] [facility] Test 00:00:00 (procedure) [code = [facility] 89263694] Future Scheduled 2023-08-[address] [facility] - Test 00:00:00 (procedure) [code = [facility] 44897852] Future Scheduled 2021-08-[address] Vikas es - Test 00:00:00 malignant neoplasm of Medica l Center colon (procedure) [code = 747903768] Future Scheduled 2021-08-[address] Vikas es - Test 00:00:00 malignant neoplasm of Medica l Center colon (procedure) [code = 293499373] Future Scheduled 2021-02-04 INFLUENZA VACCINE (#1) [facility] Test 00:00:00 [code = INFLUENZA Medical Ce nter VACCINE (#1)] Future Scheduled 2021-02-04 INFLUENZA VACCINE (#1) [facility] Test 00:00:00 [code = INFLUENZA Medical Ce nter VACCINE (#1)] Future Scheduled 2020-06-[address] [facility] - Test 00:00:00 WELLNESS (YEAR 2 or Medical Center FIRST YEAR if no IPPE) [code = MEDICARE ANNUAL WELLNESS (YEAR 2 or FIRST YEAR if no IPPE)] Future Scheduled 2020-06-[address] [facility] - Test 00:00:00 WELLNESS (YEAR 2 or Medical Center FIRST YEAR if no IPPE) [code = MEDICARE ANNUAL WELLNESS (YEAR 2 or FIRST YEAR if no IPPE)] Future Scheduled 2020-06-[address] [facility] - Test 00:00:00 (12+) [code = Medical Center DEPRESSION SCREENING (12+)] Future Scheduled 2020-06-[address] [facility] - Test 00:00:00 (12+) [code = Medical Center DEPRESSION SCREENING (12+)] Future Scheduled 2006 SHINGLES VACCINES ([address] [facility] - Test 00:00:00 of 2) [code = SHINGLES Medic al Center VACCINES (1 of 2)] Future Scheduled 2006 SHINGLES VACCINES ([address] [facility] - Test 00:00:00 of 2) [code = SHINGLES Medic al Center VACCINES (1 of 2)] Future Scheduled [address] [facility]as es - Test 00:00:00 malignant neoplasm of Medica l Center cervix (procedure) [code = 991592476] Future Scheduled [address] [facility]as es - Test 00:00:00 malignant neoplasm of Medica l Center cervix (procedure) [code = 222203084] Future Scheduled 1975 DTAP/TDAP/TD VACCINES [facility] - Test 00:00:00 (1 - Tdap) [code = Medical C enter DTAP/TDAP/TD VACCINES (1 - Tdap)] Future Scheduled 1975 DTAP/TDAP/TD VACCINES [facility] - Test 00:00:00 (1 - Tdap) [code = Medical C enter DTAP/TDAP/TD VACCINES (1 - Tdap)] Future Scheduled 1974 HEPATITIS C SCRE[facility]ING [facility] Test 00:00:00 [code = HEPATITIS C Medical Center SCREENING] Future Scheduled 1974 HEPATITIS C [facility]CRE[facility]ING [facility] Test 00:00:00 [code = HEPATITIS C Medical Center SCREENING] Future Scheduled 1968 COVID-19 VACCINE (1) [facility] - Test 00:00:00 [code = COVID-[address] VACCINE (1)] Future Scheduled 1968 COVID-19 VACCINE (1) [facility] - Test 00:00:00 [code = COVID-[address] VACCINE (1)] Future Scheduled [address] [facility] - Test 00:00:00 0-64 YRS (1 of 1 - Medical C enter PPSV23) [code = PNEUMOCOCCAL VACCINE 0-64 YRS (1 of 1 - PPSV23)] Future Scheduled [address] [facility] - Test 00:00:00 0-64 YRS (1 of 1 - Medical C enter PPSV23) [code = PNEUMOCOCCAL VACCINE 0-64 YRS (1 of 1 - PPSV23)] Future Scheduled [address] [facility] es - Test 00:00:00 [facility] breast (procedure) [code = 640541058] Future Scheduled [address] [facility] es - Test 00:00:00 [facility] breast (procedure) [code = 735767377] Encounters Start End Encounter Admission Attending Care Care Encounter Source Date/Time Date/Time Type Type Clinicians Facility Department ID 2021-03-14 Inpatient ER [facility] Cardiology [id number] 10:04:36 [facility] 2020-08-29 Inpatient ER LEON, [facility] Cardiology [id number] [facility] 21:16:00 [place] 2019-12-24 Inpatient ER NALAM, [facility] Gastro [id number] [facility] 21:00:00 HARRIET 2021-06-15 2021-06-15 Outpatient KYLE [facility] [id number] 00:00:00 00:00:00 LUIS ALBERTO [facility] 2020-12-05 2020-12-05 Office Galen [facility] [id number] 14:54:56 15:04:23 Visit Marlee [facility] 2020-12-05 2020-12-05 Travel [facility] [id number] [facility] 00:[facility] 00:00:00 [facility] 2020-11-13 2020-11-13 Outpatient GALEN, [facility] [id number] 00:00:00 00:00:00 [facility] 2020-11-06 2020-11-06 Outpatient GALEN, [facility] [id number] 00:00:00 00:00:00 [facility] 2020-10-23 2020-10-23 Outpatient GALEN, [facility] [id number] 00:00:00 00:00:00 [facility] 2020-10-21 2020-10-21 Outpatient GALEN, [facility] [id number] 00:00:00 00:00:00 [facility] 2020-08-29 2020-09-04 [facility] Oh Quintero [facility] [id number] [facility] 21:16:00 12:30:00 Encounter Hermann Maria [facility] 2020-09-01 2020-09-01 Surgery [place], [facility] [id number] 16:00:00 17:04:00 [facility] [place] 2020-08-30 2020-08-30 Travel [facility] [id number] [facility] 00:[facility]:00 00:00:00 [facility] 2020-08-29 2020-08-29 Orders [facility] [id number] 00:00:00 00:00:00 Only [facility] Results Test Description Test Time Test Comments Results Result Comments Source ECG 12 lead 2020-12-09 14:03:00 Test Item Value Reference Range Interpretation Comme nts Lab Interpretation (test code = 46288-6) [facility] [id number] 14:03:00 Test Item Value Reference Range Interpretation Comments Lab Interpretation (test code = Abnormal 31903-4) [facility] - [id number] 11:00:32 Ordered by an unspecified provider.[facility] - [id number] 11:00:32Ordered by an unspecified provider.[facility] + automated [id number] 04:38:00 Test Item Value Reference Range Interpretation Comments WBC (test code = 6690-2) 7.1 See_Comment [A utomated message] The system [employer] generated this result transmitted ref erence range: 4.0 - 10 .0 K/L. The refe rence range was not u sed to interpret this result as normal/abnor mal. RBC (test code = 789-8) 3.83 See_Comment L [Au tomated message] The system [employer] generated this result transmitted ref erence range: 4.00 - 5 .00 M/L. The refe rence range was not u sed to interpret this result as normal/abnor mal. MCHC (test code = 786-4) 30.3 See_Comment L [A utomated message] The system [employer] generated this result transmitted ref erence range: [...] See_Comment [Aut omated message] 777-3) The system [employer] generated this result transmitted ref erence range: 150 - 43 0 K/CU MM. The referen ce range was not u sed to interpret this result as normal/abnor mal. MPV (test code = [place] 89068-2) to abnormal [place] telet population distribution. nRBC (test code = 413) 0 See_Comment [Aut omated message] The system [employer] generated this result transmitted ref erence range: [...] See_Comment [Aut omated message] 670) The system [employer] generated this result transmitted ref erence range: 1.80 - 8 .00 K/L. The refe rence range was not u sed to interpret this result as normal/abnor mal. # Lymphs (test code = 2.19 See_Comment [Auto mated message] 414) The system [employer] generated this result transmitted ref erence range: 1.48 - 4 .50 K/L. The refe rence range was not u sed to interpret this result as normal/abnor mal. # Monos (test code = 0.63 See_Comment [Autom ated message] 415) The system [employer] generated this result transmitted ref erence range: 0.00 - 1 .30 K/L. The refe rence range was not u sed to interpret this result as normal/abnor mal. # Eos (test code = 416) 0.14 See_Comment [Au tomated message] The system [employer] generated this result transmitted ref erence range: 0.00 - 0 .50 K/L. The refe rence range was not u sed to interpret this result as normal/abnor mal. # Baso (test code = 417) 0.03 See_Comment [A utomated message] The system [employer] generated this result transmitted ref erence range: 0.00 - 0 .20 K/L. The refe rence range was not u sed to interpret this result as normal/abnor mal. Immature 0 % 0-0 Granulocytes-Relative (test code = 2801) Lab Interpretation (test Abnormal code = 98017-8) [facility] with platelet count + automated [id number] 04:38:00 Test Item Value Reference Range Interpretation Comments WBC (test code = 6690-2) 7.1 See_Comment [A utomated message] The system [employer] generated this result transmitted ref erence range: 4.0 - 10 .0 K/L. The refe rence range was not u sed to interpret this result as normal/abnor mal. RBC (test code = 789-8) 3.83 See_Comment L [Au tomated message] The system [employer] generated this result transmitted ref erence range: 4.00 - 5 .00 M/L. The refe rence range was not u sed to interpret this result as normal/abnor mal. MCHC (test code = 786-4) 30.3 See_Comment L [A utomated message] The system [employer] generated this result transmitted ref erence range: [...] See_Comment [Aut omated message] 777-3) The system [employer] generated this result transmitted ref erence range: 150 - 43 0 K/CU MM. The referen ce range was not u sed to interpret this result as normal/abnor mal. MPV (test code = [place] 82138-8) to abnormal [place] telet population distribution. nRBC (test code = 413) 0 See_Comment [Aut omated message] The system [employer] generated this result transmitted ref erence range: [...] See_Comment [Aut omated message] 670) The system [employer] generated this result transmitted ref erence range: 1.80 - 8 .00 K/L. The refe rence range was not u sed to interpret this result as normal/abnor mal. # Lymphs (test code = 2.19 See_Comment [Auto mated message] 414) The system [employer] generated this result transmitted ref erence range: 1.48 - 4 .50 K/L. The refe rence range was not u sed to interpret this result as normal/abnor mal. # Monos (test code = 0.63 See_Comment [Autom ated message] 415) The system [employer] generated this result transmitted ref erence range: 0.00 - 1 .30 K/L. The refe rence range was not u sed to interpret this result as normal/abnor mal. # Eos (test code = 416) 0.14 See_Comment [Au tomated message] The system [employer] generated this result transmitted ref erence range: 0.00 - 0 .50 K/L. The refe rence range was not u sed to interpret this result as normal/abnor mal. # Baso (test code = 417) 0.03 See_Comment [A utomated message] The system [employer] generated this result transmitted ref erence range: 0.00 - 0 .20 K/L. The refe rence range was not u sed to interpret this result as normal/abnor mal. Immature 0 % 0-0 Granulocytes-Relative (test code = 2801) Lab Interpretation (test Abnormal code = 11541-6) [facility] W/PLT COUNT & AUTO [id number] 04:38:00 Test Item Value Reference Range Interpretation [...] GRANULOCYTES-RELATIVE PERCENT (BEAKER) (test code = 2801) [id number] 04:32:00 Test Item Value Reference Range Interpretation Comments Magnesium (test code = 1.7 mg/dL 1.5-3 10951-2) DIONI (test code = DIONI) Computer Help Desk Representative ID - LITOOperator ID - LITOOperator ID - LITOOperator ID - GRACE Lab Interpretation (test Normal code = 61819-0) [facility] 04[facility]32:00 Test Item Value Reference Range Interpretation Comments Magnesium (test code = 1.7 mg/dL 1.5-3 24965-1) DIONI (test code = DIONI) Computer Help Desk Representative ID - LITOOperator ID - LITOOperator ID - LITOOperator ID - GRACE Lab Interpretation (test Normal code = 35811-9) [facility] 04:32:00 Test Item Value Reference Range Interpretation Comments MAGNESIUM (BEAKER) (test code = 1.7 mg/dL 1.5-3.0 627) Computer Help Desk Representative ID - LITOOperator ID - LITOOperator ID - LITOOperator ID - LITOBasic Metabolic [id number] 04:31:00 Test Item Value Reference Range Interpretation Comments Sodium (test code = 139 meq/L 907-079 4565-2) Potassium (test code 4.0 meq/L 3.6-5.5 = 2823-3) Chloride (test code = 110 meq/L 98-106 H 2075-0) CO2 (test code = 21 meq/L -29 2028-9) BUN (test code = 10 mg/dL 10-26 3094-0) Creatinine (test code 0.55 mg/dL 0.5-1.2 = 2160-0) Glucose (test code = 88 mg/dL 70-110 2345-7) Calcium (test code = 8.0 mg/dL 8.5-10.5 L 34658-7) EGFR (test code = 111 mL/min/1.73 [place] [address]-5) m NOT ACCURATE CREATININE CLEARANCE IN PREDICTING GLOMERULAR FILTRATION RATE . ESTIMATED GFR I S NOT APPLICABLE FOR DIALYSIS PATIENTS. DINOI (test code = DIONI) Computer Help Desk Representative ID - LITOOperator ID - LITOOperator ID - LITOOperator ID - LITOOperator ID - LITOOperator ID - LITOOperator ID - LITOOperator ID - LITOOperator ID - GRACE Lab Interpretation Abnormal (test code = 82600-2) [facility] Met[facility] [id number] 04:31:00 Test Item Value Reference Range Interpretation Comments Sodium (test code = 139 meq/L 633-738 6527-2) Potassium (test code 4.0 meq/L 3.6-5.5 = 2823-3) Chloride (test code = 110 meq/L 98-106 H 2075-0) CO2 (test code = 21 meq/L -2027-9) BUN (test code = 10 mg/dL - 3094-0) Creatinine (test code 0.55 mg/dL 0.5-1.2 = 2160-0) Glucose (test code = 88 mg/dL 70-110 2345-7) Calcium (test code = 8.0 mg/dL 8.5-10.5 L 17986-2) EGFR (test code = 111 mL/min/1.73 [place] [address]-3) m NOT ACCURATE CREATININE CLEARANCE IN PREDICTING GLOMERULAR FILTRATION RATE . ESTIMATED GFR I S NOT APPLICABLE FOR DIALYSIS PATIENTS. DIONI (test code = DIONI) Computer Help Desk Representative ID - LITOOperator ID - LITOOperator ID - LITOOperator ID - LITOOperator ID - LITOOperator ID - LITOOperator ID - LITOOperator ID - LITOOperator ID - GRACE Lab Interpretation Abnormal (test code = 58302-7) [facility] METABOLIC [id number] 04:31:00 Test Item Value Reference Range Interpretation Comments SODIUM (BEAKER) 139 meq/L 135-148 (test code = 381) POTASSIUM (BEAKER) 4.0 meq/L 3.6-5.5 (test code = 379) CHLORIDE (BEAKER) 110 meq/L 98-106 H (test code = 382) CO2 (BEAKER) (test 21 meq/L code = 355) BLOOD UREA NITROGEN 10 mg/dL - (BEAKER) (test code = 354) CREATININE (BEAKER) [...] S NOT APPLICABLE FOR DIALYSIS PATIEN TS. Computer Help Desk Representative ID - LITOOperator ID - LITOOperator ID - LITOOperator ID - LITOOperator ID - LITOOperator ID - LITOOperator ID - LITOOperator ID - LITOOperator ID - CVSUBorerfoexl4075-10-24 04:29:00 Test Item Value Reference Range Interpretation Comments Phosphorus (test code = 3.8 mg/dL 2.5-4.5 2777-1) DIONI (test code = DIONI) Computer Help Desk Representative ID - GRACE Lab Interpretation (test Normal code = 48587-0) [facility] 04:29:00 Test Item Value Reference Range Interpretation Comments Phosphorus (test code = 3.8 mg/dL 2.5-4.5 2777-1) DIONI (test code = DIONI) Computer Help Desk Representative ID - GRACE Lab Interpretation (test Normal code = 25377-6) [facility]2021[facility] 04:29:00 Test Item Value Reference Range Interpretation Comments PHOSPHORUS (BEAKER) (test code = 3.8 mg/dL 2.5-4.5 604) Computer Help Desk Representative ID - [id number] 06:06:00 Test Item Value Reference Range Interpretation Comments MAGNESIUM (BEAKER) (test code = 1.9 mg/dL 1.5-3.0 627) Computer Help Desk Representative ID - [id number] ID - [id number] ID - [id number] ID - [id number] METABOLIC [id number] 06:05:00 Test Item Value Reference Range Interpretation [...] S NOT APPLICABLE FOR DIALYSIS PATIEN TS. Computer Help Desk Representative ID - [id number] ID - [id number] ID - [id number] ID - [id number] ID - [id number] ID - [id number] ID - [id number] ID - [id number] ID - [id number] 06:03:00 Test Item Value Reference Range Interpretation Comments PHOSPHORUS (BEAKER) (test code = 3.7 mg/dL 2.5-4.5 604) Computer Help Desk Representative ID - [id number] W/PLT COUNT & AUTO [id number] 05:39:00 Test Item Value Reference Range Interpretation [...] (BEAKER) (test code = 2801) BASIC METABOLIC [id number] 05:30:00 Test Item Value Reference Range Interpretation [...] S NOT APPLICABLE FOR DIALYSIS PATIEN TS. Computer Help Desk Representative ID - NALINIOperator ID - NALINIOperator ID - NALINIOperator ID - NALINIOperator ID - NALINIOperator ID - NALINIOperator ID - NALINIOperator ID - NALINIOperator ID - NALINIOperator ID - [id number] 05:29:00 Test Item Value Reference Range Interpretation Comments MAGNESIUM (BEAKER) (test code = 1.6 mg/dL 1.5-3.0 627) Computer Help Desk Representative ID - NALINIOperator ID - NALINIOperator ID - NALINIOperator ID - TAVO GEBSOJFSCD9104-68-65 05:26:00 Test Item Value Reference Range Interpretation Comments PHOSPHORUS (BEAKER) (test code = 3.6 mg/dL 2.5-4.5 604) Computer Help Desk Representative ID - NALINICBC W/PLT COUNT & AUTO [id number] 05:17:00 Test Item Value Reference Range Interpretation [...] PERCENT (BEAKER) (test code = 2801) POC-Glucose [id number] 00:11:00 Test Item Value Reference Range Interpretation Comments POC-Glucose Meter (test 91 mg/dL 70-110 : No tified RN/MD: code = 1538) TESTED AT [place] [address]: Computer Help Desk Representative/Techni pollo ID = [id number] for Jeovanny, Arablela Lab Interpretation (test Normal code = 07593-6) [facility] [id number] 00:11:00 Test Item Value Reference Range Interpretation Comments POC-Glucose Meter (test 91 mg/dL 70-110 : No tified RN/MD: code = 1538) TESTED AT [place] [address]: Computer Help Desk Representative/Techni pollo ID = [id number] for Jeovanny, Arabella Lab Interpretation (test Normal code = 06745-4) [facility] [id number] 00:11:00 Test Item Value Reference Range Interpretation Comments POC-GLUCOSE METER 91 mg/dL 70-110 : Notified RN/MD: TESTED ([facility]) (test code = AT [address]) [facility] [address]: Computer Help Desk Representative/Techni pollo ID = [id number] for Prov ost, Arabella POCT-GLUCOSE [id number] 18:11:00 Test Item Value Reference Range Interpretation Comments POC-GLUCOSE METER 80 mg/dL 70-110 : Notified RN/MD: TESTED (BEAKER) (test code = AT [address]) [facility] [address]: Computer Help Desk Representative/Techni pollo ID = [id number] for Bethel h, Lorita POCT-GLUCOSE [id number] 12:32:00 Test Item Value Reference Range Interpretation Comments POC-GLUCOSE METER 75 mg/dL 70-110 : Notified RN/MD: [facility] (test code = AT [address]) [facility] [address]: Computer Help Desk Representative/Techni pollo ID = [id number] for Bethel h, Lorita POCT-GLUCOSE [id number] 12:14:00 Test Item Value Reference Range Interpretation Comments POC-GLUCOSE METER 79 mg/dL 70-110 : TESTED A T [address] ([facility]) (test code = [address] [facility], 15[address]) [place] [address]: Computer Help Desk Representative/Techni pollo ID = [id number] for Bethel h, Lorita [id number] 09:54:00 Test Item Value Reference Range Interpretation Comments PTT (test code = 63.8 See_Comment H Final Infor mation 96501-4) (Auto Output) [Automated mess age] The system [employer] generated this result transmitted ref erence range: 23.0 - 3 5.0 seconds. The reference range was not used to int erpret this result as normal/abnormal . Lab Interpretation (test Abnormal code = 69871-0) [facility] 09:54:00 Test Item Value Reference Range Interpretation Comments PTT (test code = 63.8 See_Comment H Final Infor mation 63471-8) (Auto Output) [Automated mess age] The system [employer] generated this result transmitted ref erence range: 23.0 - 3 5.0 seconds. The reference range was not used to int erpret this result as normal/abnormal . Lab Interpretation (test Abnormal code = 62231-6) [facility] 09:54:00 Test Item Value Reference Range Interpretation Comments PARTIAL THROMBOPLASTIN 63.8 seconds 23.0-35.0 H Final Information TIME ([facility]) (test (Auto Ou tput) code = 760) [id number] 07:53:00 Test Item Value Reference Range Interpretation Comments MAGNESIUM (BEAKER) 1.8 mg/dL 1.5-3.0 Specimen slightly (test code = 627) hemolyzed Computer Help Desk Representative ID - [id number] ID - [id number] ID - [id number] ID - zdxs12 [id number] 07:51:00 Test Item Value Reference Range Interpretation Comments PHOSPHORUS (BEAKER) 3.4 mg/dL 2.5-4.5 Specimen slightly (test code = 604) hemolyzed Computer Help Desk Representative ID - [id number] METABOLIC [id number] 05:16:00 Test Item Value Reference Range Interpretation Comments SODIUM (BEAKER) 140 meq/L 135-148 (test code = 381) POTASSIUM (BEAKER) 3.7 meq/L 3.6-5.5 (test code = 379) CHLORIDE (BEAKER) 110 meq/L 98-106 H (test code = 382) CO2 (BEAKER) (test 23 meq/L code = 355) BLOOD UREA NITROGEN 7 [...] S NOT APPLICABLE FOR DIALYSIS PATIEN TS. Computer Help Desk Representative ID - [id number] ID - [id number] ID - JLSS28Bcjszwne ID - [id number] ID - [id number] ID - [id number] ID - XYDA79Acynnjsz ID - RKQU85Pxngyixb ID - PAPO61Cjrbmsvl ID - SYUA05Vhhnktkk ID - SCTE27Hroybbgd ID - [id number] ID - [id number] (hemogram only)2020-09-01 04:39:00 Test Item Value Reference Range Interpretation Comments WBC (test code = 6690-2) 8.1 See_Comment [A utomated message] The system [employer] generated this result transmitted ref erence range: 4.0 - 10 .0 K/L. The refe rence range was not u sed to interpret this result as normal/abnor mal. RBC (test code = 789-8) 3.77 See_Comment L [Au tomated message] The system [employer] generated this result transmitted ref erence range: 4.00 - 5 .00 M/L. The refe rence range was not u sed to interpret this result as normal/abnor mal. MCHC (test code = 786-4) 30.5 See_Comment L [A utomated message] The system [employer] generated this result transmitted ref erence range: [...] See_Comment [Aut omated message] 777-3) The system [employer] generated this result transmitted ref erence range: 150 - 43 0 K/CU MM. The referen ce range was not u sed to interpret this result as normal/abnor mal. nRBC (test code = 413) 0 See_Comment [Aut omated message] The system [employer] generated this result transmitted ref erence range: 0 - 0 /1 00 WBC. The refere nce range was not u sed to interpret this result as normal/abnor mal. Lab Interpretation (test Abnormal code = 98850-9) [facility] (hemogram only)2020-09-01 04:39:00 Test Item Value Reference Range Interpretation Comments WBC (test code = 6690-2) 8.1 See_Comment [A utomated message] The system [employer] generated this result transmitted ref erence range: 4.0 - 10 .0 K/L. The refe rence range was not u sed to interpret this result as normal/abnor mal. RBC (test code = 789-8) 3.77 See_Comment L [Au tomated message] The system [employer] generated this result transmitted ref erence range: 4.00 - 5 .00 M/L. The refe rence range was not u sed to interpret this result as normal/abnor mal. MCHC (test code = 786-4) 30.5 See_Comment L [A utomated message] The system [employer] generated this result transmitted ref erence range: [...] See_Comment [Aut omated message] 777-3) The system [employer] generated this result transmitted ref erence range: 150 - 43 0 K/CU MM. The referen ce range was not u sed to interpret this result as normal/abnor mal. nRBC (test code = 413) 0 See_Comment [Aut omated message] The system [employer] generated this result transmitted ref erence range: 0 - 0 /1 00 WBC. The refere nce range was not u sed to interpret this result as normal/abnor mal. Lab Interpretation (test Abnormal code = 03001-5) [facility] (HEMOGRAM ONLY)2020-09-01 04:39:00 Test Item Value Reference [...] WBC 0-0 (BEAKER) (test code = 413) [id number] 01:54:00 Test Item Value Reference Range Interpretation Comments PARTIAL THROMBOPLASTIN 62.6 seconds 23.0-35.0 H Final Information TIME (BEAKER) (test (Auto Ou tput) code = 760) Prepare Leuko-Red [id number] 23:54:00 Test Item Value Reference Range Interpretation Comments CROSSMATCH (test code = 2264) COMPATIBLE Unit ABO (test code = O Pos 1389609) UNIT NUMBER (test code = [id number] 934-0) Status (test code = 7429068) TX_TIMEINCHART Blood Bank Product (test code RED BLOOD CELLS = 2263) PRODUCT CODE (test code = [id number] 933-2) [facility] [id number] 23:54:00 Test Item Value Reference Range Interpretation Comments CROSSMATCH (test code = 2264) COMPATIBLE Unit ABO (test code = O Pos 0329428) UNIT NUMBER (test code = [id number] 934-0) Status (test code = 7711295) TX_TIMEINCHART Blood Bank Product (test code RED BLOOD CELLS = 2263) PRODUCT CODE (test code = I5055B16 933-2) [facility] 16:32:00 Test Item Value Reference Range Interpretation Comments PARTIAL THROMBOPLASTIN 49.5 seconds 23.0-35.0 H Final Information TIME (BEAKER) (test (Auto Ou tput) code = 760) 2D Echo W/Doppler(CW/PW/Color)2020-08-31 09:23:55Ejection FractionSLEH ECHO HEARTLAB MKJULIANNE CPACSInterface, External Ris In - 08/31/2020 9:24 AM C DTTransthoracic Echocardiography Report (TTE) Demographics Patient Name LAILA HERNANDEZ Date of Study 08/30/2020 RADHA Gender Female Visit Number [id number] Race Unknown Room Number I202 Number Date of 1955 Referring Physician Age 65 year(s) Local Announcer [place] [facility] Interpreting Luis Alberto Wright Physician . Procedure Type of Study TTE procedure:2DECHO W [...] Peak Gradient: 3.72 mmHg Estimated PASP: 40.4 [facility] W/Doppler(CW/PW/Color)2020-08-31 09:23:55Ejection FractionSLEH ECHO HEARTLAB MKCKESSON CPACSInterface, External Ris In - 08/31/2020 9:24 AM CDTTransthoracic Echocardiography Report (TTE) Demographics Patient Name LAILA HERNANDEZ Date of Study 08/30/2020 RADHA Gender Female Visit Number [id number] Race Unknown Room Number I202 Number Date of 1955 Referring Physician Age 65 year(s) Local Announcer [place] [facility] Interpreting Luis Alberto Wright, Physician . Procedure Type of Study TTE procedure:2DECHO W [...] Peak Gradient: 3.72 mmHg Estimated PASP: 40.4 [facility] [id number] 07:33:00 Test Item Value Reference Range Interpretation Comments Troponin I (test code = 5.78 ng/mL 0-0.15 76519-6) DIONI (test code = DIONI) Troponin I [...] failure, acidosis, acute neurological disease, and persistent tachyarrhythmia.[facility] ID - [id number] Lab Interpretation (test Abnormal code = 02636-6) [facility] [id number] 07:33:00 Test Item Value Reference Range Interpretation Comments Troponin I (test code = 5.78 ng/mL 0-0.15 17310-9) DIONI (test code = DIONI) Troponin I [...] failure, acidosis, acute neurological disease, and persistent tachyarrhythmia.[facility] ID - [id number] Lab Interpretation (test Abnormal code = 80795-8) [facility] [id number] 07:33:00 Test Item Value Reference Range Interpretation [...] failure, acidosis, acute neurological disease, and persistent tachyarrhythmia.Computer Help Desk Representative ID - [id number] 07:29:00 Test Item Value Reference Range Interpretation Comments MAGNESIUM (BEAKER) 1.8 mg/dL 1.5-3.0 Specimen slightly (test code = 627) hemolyzed Computer Help Desk Representative ID - [id number] ID - [id number] ID - bnbv16Qnoxizkz ID - zdxs12 [id number] 07:27:00 Test Item Value Reference Range Interpretation Comments PHOSPHORUS (BEAKER) 3.0 mg/dL 2.5-4.5 Specimen slightly (test code = 604) hemolyzed Computer Help Desk Representative ID - [id number] 07:04:00 Test Item Value Reference Range Interpretation Comments PARTIAL THROMBOPLASTIN 38.5 seconds 23.0-35.0 H Final Information TIME (BEAKER) (test (Auto Ou tput) code = 760) Comprehensive metabolic [id number] 05:38:00 Test Item Value Reference Interpretation Comments Range Protein, Total 5.5 See_Comment L Specimen (test code = slightly 2885-2) hemolyzed [Automated message] The system which generated this result transmitted reference range : 6.0 - 8.5 gm/dL . The reference range was not used to interpret this result as normal/abnormal . Albumin (test code 2.6 g/dL 3.5-5 L Specimen = 84007-8) slightly hemolyzed Alkaline 53 U/L 30-115 Phosphatase (test code = 6768-6) Total Bilirubin 0.9 mg/dL 0.1-1.2 Specimen (test code = slightly 1975-2) hemolyzed Sodium (test code = 138 meq/L 729-705 3112-2) Potassium (test 4.4 meq/L 3.6-5.5 Specimen code = 2823-3) slightly hemolyzed Chloride (test code 109 meq/L 98-106 H = 2075-0) CO2 (test code = 21 meq/L 20-29 8-9) BUN (test code = 6 mg/dL 10-26 L 3094-0) Creatinine (test 0.60 mg/dL 0.5-1.2 Specimen code = 2160-0) slightly hemolyzed Glucose (test code 100 mg/dL 70-110 = 2345-7) Calcium (test code 7.6 mg/dL 8.5-10.5 L = 07113-0) AST (test code = 52 U/L 5-40 H Specimen 1920-8) slightly hemolyzed ALT (test code = 33 U/L 5-50 Specimen 1742-6) slightly hemolyzed EGFR (test code = 101 mL/min/1.[place] [address]-3) m NOT ACCURATE CREATININE CLEARANCE IN PREDICTING GLOMERULAR FILTRATION RATE . ESTIMATED GFR I S NOT APPLICABLE FOR DIALYSIS PATIENTS. DIONI (test code = Computer Help Desk Representative ID - DIONI) RESORIANOperator ID - RESORIANOperator ID - RESORIANOperator ID - RESORIANOperator ID - RESORIANOperator ID - RESORIANOperator ID - RESORIANOperator ID - RESORIANOperator ID - RESORIANOperator ID - RESORIANOperator ID - RESORIANOperator ID - RESORIANOperator ID - RESORIANOperator ID - RESORIANOperator ID - RESORIANOperator ID - RESORIANOperator ID - RESORIANOperator ID - RESORIANOperator ID - RESORIAN Lab Interpretation Abnormal (test code = 43108-2) [facility]Com[facility] [id number] 05:38:00 Test Item Value Reference Interpretation Comments Range Protein, Total 5.5 See_Comment L Specimen (test code = slightly 2885-2) hemolyzed [Automated message] The system which generated this result transmitted reference range : 6.0 - 8.5 gm/dL . The reference range was not used to interpret this result as normal/abnormal . Albumin (test code 2.6 g/dL 3.5-5 L Specimen = 28355-6) slightly hemolyzed Alkaline 53 U/L 30-115 Phosphatase (test code = 6768-6) Total Bilirubin 0.9 mg/dL 0.1-1.2 Specimen (test code = slightly 1975-2) hemolyzed Sodium (test code = 138 meq/L 422-709 7108-2) Potassium (test 4.4 meq/L 3.6-5.5 Specimen code [...] (test code 7.6 mg/dL 8.5-10.5 L = 66091-9) AST (test code = 52 U/L 5-40 H Specimen 1920-8) slightly hemolyzed ALT (test code = 33 U/L 5-50 Specimen 1742-6) slightly hemolyzed EGFR (test code = 101 mL/min/1.[place] [address]-0) m NOT ACCURATE CREATININE CLEARANCE IN PREDICTING GLOMERULAR FILTRATION RATE . ESTIMATED GFR I S NOT APPLICABLE FOR DIALYSIS PATIENTS. DIONI (test code = Computer Help Desk Representative ID - DIONI) RESORIANOperator ID - RESORIANOperator ID - RESORIANOperator ID - RESORIANOperator ID - RESORIANOperator ID - RESORIANOperator ID - RESORIANOperator ID - RESORIANOperator ID - RESORIANOperator ID - RESORIANOperator ID - RESORIANOperator ID - RESORIANOperator ID - RESORIANOperator ID - RESORIANOperator ID - RESORIANOperator ID - RESORIANOperator ID - RESORIANOperator ID - RESORIANOperator ID - RESORIAN Lab Interpretation Abnormal (test code = 08165-4) [facility]AB[facility] [id number] 05:38:00 Test Item Value Reference Range Interpretation [...] S NOT APPLICABLE FOR DIALYSIS PATIEN TS. Computer Help Desk Representative ID - RESORIANOperator ID - RESORIANOperator ID [...] 0-0 (BEAKER) (test code = 413) TROPONIN [id number] 01:21:00 Test Item Value Reference Range Interpretation [...] failure, acidosis, acute neurological disease, and persistent tachyarrhythmia.Computer Help Desk Representative ID - [id number] 22:21:00 Test Item Value Reference Range Interpretation Comments PARTIAL THROMBOPLASTIN 33.0 seconds 23.0-35.0 Final Information TIME (BEAKER) (test (Auto Ou tput) code = 760) [id number] 14:16:00 Test Item Value Reference Range Interpretation Comments PARTIAL THROMBOPLASTIN 24.6 seconds 23.0-35.0 Final Information TIME (BEAKER) (test (Auto Ou tput) code = 760) Platelet [id number] 14:02:00 Test Item Value Reference Range Interpretation Comments Platelets (test code = 196 See_Comment [Aut omated message] 777-3) The system [employer] generated this result transmitted ref erence range: 150 - 43 0 K/CU MM. The referen ce range was not u sed to interpret this result as normal/abnor mal. Lab Interpretation (test Normal code = 85985-3) [facility] Hospital[facility]ate[facility] [id number] 14:02:00 Test Item Value Reference Range Interpretation Comments Platelets (test code = 196 See_Comment [Aut omated message] 777-3) The system [employer] generated this result transmitted ref erence range: 150 - 43 0 K/CU MM. The referen ce range was not u sed to interpret this result as normal/abnor mal. Lab Interpretation (test Normal code = 18577-4) [facility] HospitalPLATELET [id number] 14:02:00 Test Item Value Reference Range Interpretation Comments PLATELET COUNT (BEAKER) (test 196 K/CU MM 150-430 code = 756) Occult blood, [id number] 10:57:00 Test Item Value Reference Range Interpretation Comments Occult blood (test code = 2335-8) Negative Negative Lab Interpretation (test code = Normal 83357-6) [facility] HospitalOccult blood, [id number] 10:57:00 Test Item Value Reference Range Interpretation Comments Occult blood (test code = 2335-8) Negative Negative Lab Interpretation (test code = Normal 09598-5) [facility] HospitalOCCULT BLOOD, [id number] 10:57:00 Test Item Value Reference Range Interpretation Comments FECAL OCCULT BLOOD (BEAKER) (test Negative Negative code = 618) [id number] 09:29:00 Test Item Value Reference Range Interpretation Comments MAGNESIUM (BEAKER) (test code = 1.8 mg/dL 1.5-3.0 627) Computer Help Desk Representative ID - [id number] 05:52:00 Test Item Value Reference Range Interpretation Comments Triglycerides (test 47 mg/dL code = 2571-8) Cholesterol (test code 96 mg/dL = 2093-3) HDL (test code = 27 mg/dL 2085-02) LDL Calculated (test 60 mg/dL code = 83027-1) DIONI (test code = DIONI) Triglyceride Reference Range: Low Risk <150 Borderline 150-199 High Risk 200-499 Very High Risk >=500 Cholesterol Reference Range: Low Risk <200 Borderline 200-239 High Risk >240 HDL Cholesterol Reference Range: Low Risk >=60 High Risk <40 LDL Cholesterol Reference Range: Optimal <100 Near Optimal 100-129 Borderline 130-159 High 160-189 Very High >=190 Computer Help Desk Representative ID - [id number] ID - [id number] ID - [id number] ID - [id number] ID - [id number] ID - [id number] [facility] Natriuretic Factor (BNP)2020-08-30 05:52:00 Test Item Value Reference Range Interpretation Comments BNP (test code = 50529-6) 893 pg/mL 0-100 H DIONI (test code = DIONI) Computer Help Desk Representative ID - [id number] Lab Interpretation (test Abnormal code = 98674-8) [facility] HospitalLipid [id number] 05:52:00 Test Item Value Reference Range Interpretation Comments Triglycerides (test 47 mg/dL code = 2571-8) Cholesterol (test code 96 mg/dL = 3-3) HDL (test code = 27 mg/dL 2085-02) LDL Calculated (test 60 mg/dL code = 16128-2) DIONI (test code = DIONI) Triglyceride Reference Range: Low Risk <150 Borderline 150-199 High Risk 200-499 Very High Risk >=500 Cholesterol Reference Range: Low Risk <200 Borderline 200-239 High Risk >240 HDL Cholesterol Reference Range: Low Risk >=60 High Risk <40 LDL Cholesterol Reference Range: Optimal <100 Near Optimal 100-129 Borderline 130-159 High 160-189 Very High >=190 Computer Help Desk Representative ID - [id number] ID - [id number] ID - [id number] ID - [id number] ID - [id number] ID - [id number] [facility] (BNP)2020-08-30 05:52:00 Test Item Value Reference Range Interpretation Comments BNP (test code = 54438-8) 893 pg/mL 0-100 H DIONI (test code = DIONI) Computer Help Desk Representative ID - [id number] Lab Interpretation (test Abnormal code = 38208-3) [facility] NATRIURETIC FACTOR (BNP)2020-08-30 05:52:00 Test Item Value Reference Range Interpretation Comments B-TYPE NATRIURETIC PEPTIDE (BEAKER) 893 pg/mL 0-100 H (test code = 700) Computer Help Desk Representative ID - [id number] 05:52:00 Test Item Value Reference Range Interpretation Comments TRIGLYCERIDES (BEAKER) (test code = 47 mg/dL 540) CHOLESTEROL (BEAKER) (test code = 96 mg/dL 631) HDL CHOLESTEROL (BEAKER) (test code 27 mg/dL = 976) LDL CHOLESTEROL CALCULATED (AKER) 60 mg/dL (test code = 633) Triglyceride Reference Range: Low Risk <150 Borderline 150-199 High Risk 200-499 Very High Risk >=500Cholesterol Reference Range: Low Risk <200 Borderline 200-239 High Risk >240HDL Cholesterol Reference Range: Low Risk >=60 High Risk <40LDL Cholesterol Reference Range: Optimal <100 Near Optimal 100-129 Borderline 130-159 High 160-189 Very High >=190 Computer Help Desk Representative ID - [id number] ID - [id number] ID - [id number] ID - [id number] ID - [id number] ID - [id number] TROPONIN [id number] 05:49:00 Test Item Value Reference Range Interpretation [...] failure, acidosis, acute neurological disease, and persistent tachyarrhythmia.Computer Help Desk Representative ID - [id number] METABOLIC [id number] 05:46:00 Test Item Value Reference Range Interpretation [...] S NOT APPLICABLE FOR DIALYSIS PATIEN TS. Computer Help Desk Representative ID - [id number] ID - [id number] ID - [id number] ID - [id number] ID - [id number] ID - [id number] ID - [id number] ID - [id number] ID - [id number] ID - [id number] W/PLT COUNT & AUTO [id number] 05:35:00 Test Item Value Reference Range Interpretation [...] (test code = 2801) Rapid drug screen, [id number] 04:13:00 Test Item Value Reference Range Interpretation Comments Barbiturate Screen Negative Negative (test code = 98230-9) Benzodiazepine Screen Negative Negative (test code = 50743-1) Cocaine (Metab.) Negative Negative Screen (test code = 3397-7) Methadone Screen (test Negative Negative code = 53508-2) Opiate Screen (test Negative Negative code = 70837-3) Cannabinoid Screen Negative Negative (test code = 72667-9) Amph/Methamph Screen Negative Negative (test code = 01838-7) Phencyclidine Screen Negative Negative (test code = 46507-8) pH, UA (test code = 6.5 5.0-8.0 5803-2) DIONI (test code = DIONI) DRUG CUTOFF CONC.Cocaine 300 ng/mL Cannabinoid 50 ng/mLBenzodiazepine 200 ng/mLBarbiturate 200 ng/mLPhencyclidine 25 ng/mLOpiate 300 ng/mLMethadone 300 ng/mLAmphetamine/ 1000 ng/mL Methamphetamine This assay provides an unconfirmed qualitative test result for the clinical management of patients in emergency situations. Chain of custody not maintained. Some rspy-ufv-vkeqzpi medications, as well as adulterants, may cause inaccurate results. Clinical correlation should be applied. A more comprehensive drug screen or confirmation of a detected drug may be performed upon request.Computer Help Desk Representative ID - [id number] ID - [id number] ID - [id number] ID - [id number] ID - [id number] ID - [id number] ID - [id number] ID - [id number] Lab Interpretation Normal (test code = 84220-3) [facility] screen, [id number] 04:13:00 Test Item Value Reference Range Interpretation Comments Barbiturate Screen Negative Negative (test code = 08524-6) Benzodiazepine Screen Negative Negative (test code = 60563-5) Cocaine (Metab.) Negative Negative Screen (test code = 3397-7) Methadone Screen (test Negative Negative code = 20104-2) Opiate Screen (test Negative Negative code = 56533-9) Cannabinoid Screen Negative Negative (test code = 91967-9) Amph/Methamph Screen Negative Negative (test code = 13361-7) Phencyclidine Screen Negative Negative (test code = 82056-4) pH, UA (test code = 6.5 5.0-8.0 5803-2) DIONI (test code = DIONI) DRUG CUTOFF CONC.Cocaine 300 ng/mL Cannabinoid 50 ng/mLBenzodiazepine 200 ng/mLBarbiturate 200 ng/mLPhencyclidine 25 ng/mLOpiate 300 ng/mLMethadone 300 ng/mLAmphetamine/ 1000 ng/mL Methamphetamine This assay provides an unconfirmed qualitative test result for the clinical management of patients in emergency situations. Chain of custody not maintained. Some iour-piz-jxhogau medications, as well as adulterants, may cause inaccurate results. Clinical correlation should be applied. A more comprehensive drug screen or confirmation of a detected drug may be performed upon request.Computer Help Desk Representative ID - [id number] ID - [id number] ID - [id number] ID - [id number] ID - [id number] ID - [id number] ID - [id number] ID - [id number] Lab Interpretation Normal (test code = 87373-8) [facility] HospitalRAPID DRUG SCREEN, [id number] 04:13:00 Test Item Value Reference Range Interpretation [...] situations. Chain of custody not maintained. Some batn-mqj-jqqtthz medications, as well as adulterants, may cause inaccurate results. Clinical correlation should be applied. A more comprehensivedrug screen or confirmation of a detected drug may be performed upon request.Computer Help Desk Representative ID - [id number] ID - [id number] ID - [id number] ID - [id number] ID - [id number] ID - [id number] ID - [id number] ID - [id number] and screen, [id number] 01:28:00 Test Item Value Reference Range Interpretation Comments ABO/RH AUTOMATED (BEAKER) (test O POSITIVE code = 2260) Ab Scrn (test code = 890-4) NEGATIVE [facility] HospitalType and screen, [id number] 01:28:00 Test Item Value Reference Range Interpretation Comments ABO/RH AUTOMATED (BEAKER) (test O POSITIVE code = 2260) Ab Scrn (test code = 890-4) NEGATIVE [facility] HospitalTROPONIN [id number] 23:38:00 Test Item Value Reference Range Interpretation Comments TROPONIN I (BEAKER) (test code = 7.11 ng/mL 0.00-0.15 397) Troponin I (TnI) levels [...] failure, acidosis, acute neurological disease, and persistent tachyarrhythmia.Computer Help Desk Representative ID - [id number] function [id number] 23:23:00 Test Item Value Reference Range Interpretation Comments Protein, Total (test 5.7 See_Comment L [Autom ated code = 2885-2) message] The system which generated this result transmit miracle reference range : 6.0 - 8.5 gm/dL . The reference range was not u sed to interpret th is result as normal/abnormal . Albumin (test code = 3.0 g/dL 3.5-5 L 52297-5) Total Bilirubin (test 0.7 mg/dL 0.1-1.2 code = 1975-2) Bilirubin, Direct 0.4 mg/dL 0-0.4 (test code = 1967-7) Alkaline Phosphatase 60 U/L 30-115 (test code = 6768-6) AST (test code = 64 U/L 5-40 H 1920-8) ALT (test code = 39 U/L 5-50 1742-6) DIONI (test code = DIONI) Computer Help Desk Representative ID - [id number] r ID - [id number] r ID - [id number] r ID - [id number] r ID - [id number] r ID - [id number] r ID - [id number] Lab Interpretation Abnormal (test code = 31605-8) [facility] HospitalHepatic function [id number] 23:23:00 Test Item Value Reference Range Interpretation Comments Protein, Total (test 5.7 See_Comment L [Autom ated code = 2885-2) message] The system which generated this result transmit miracle reference range : 6.0 - 8.5 gm/dL . The reference range was not u sed to interpret th is result as normal/abnormal . Albumin (test code = 3.0 g/dL 3.5-5 L 01582-5) Total Bilirubin (test 0.7 mg/dL 0.1-1.2 code = 1975-2) Bilirubin, Direct 0.4 mg/dL 0-0.4 (test code = 1968-7) Alkaline Phosphatase 60 U/L 30-115 (test code = 6768-6) AST (test code = 64 U/L 5-40 H 1920-8) ALT (test code = 39 U/L 5-50 1742-6) DIONI (test code = DIONI) Computer Help Desk Representative ID - [id number] r ID - [id number] r ID - [id number] r ID - [id number] r ID - [id number] r ID - [id number] r ID - [id number] Lab Interpretation Abnormal (test code = 33463-1) [facility] HospitalBASIC METABOLIC [id number] 23:23:00 Test Item Value Reference Range Interpretation [...] S NOT APPLICABLE FOR DIALYSIS PATIEN TS. Computer Help Desk Representative ID - [id number] ID - [id number] ID - [id number] ID - [id number] ID - [id number] ID - [id number] ID - [id number] ID - [id number] ID - [id number] ID - [id number] HEPATIC FUNCTION [id number] 23:23:00 Test Item Value Reference Range Interpretation [...] (test code = 39 U/L 5-50 347) Computer Help Desk Representative ID - [id number] ID - [id number] ID - [id number] ID - [id number] ID - [id number] ID - [id number] ID - [id number] [id number] 23:23:00 Test Item Value Reference Range Interpretation Comments MAGNESIUM (BEAKER) (test code = 1.7 mg/dL 1.5-3.0 627) Computer Help Desk Representative ID - [id number] ID - [id number] ID - [id number] ID - [id number] [id number] 23:21:00 Test Item Value Reference Range Interpretation Comments Total Counted (test code = 1351) WBC Morphology (test code = 487) Normal Platelet Morphology (test code = 486) Normal Polychromasia (test code = 478) 1+ few Target Cells (test code = 480) 1+ few [facility] HospitalManual [id number] 23:21:00 Test Item Value Reference Range Interpretation Comments Total Counted (test code = 1351) WBC Morphology (test code = 487) Normal Platelet Morphology (test code = 486) Normal Polychromasia (test code = 478) 1+ few Target Cells (test code = 480) 1+ few [facility] W/PLT COUNT & AUTO [id number] 23:21:00 Test Item Value Reference Range Interpretation [...] (test code = 1+ few 480) Prothrombin time/[id number] 23:18:00 Test Item Value Reference Interpretation Comments [...] valves. Lab Interpretation Abnormal (test code = 98383-5) [facility] HospitalProthrombin time/[id number] 23:18:00 Test Item Value Reference Interpretation Comments [...] valves. Lab Interpretation Abnormal (test code = 87892-3) [facility] HospitalPROTHROMBIN TIME/[id number] 23:18:00 Test Item Value Reference Range Interpretation Comments PROTIME (BEAKER) 12.3 seconds 9.3-12.0 H Final Infor mation (test code = 759) (Auto Outp ut) INR (BEAKER) (test 1.11 See_Comment Final Inf ormation code = 370) (Auto Output) [Automated mess age] The system [employer] generated this result transmitted ref erence range: <=5.90. The reference range was not used to int erpret this result as normal/abnormal . RECOMMENDED COUMADIN/WARFARIN INR THERAPY RANGESSTANDARD DOSE: 2.0 - 3.0 Includes: PROPHYLAXIS forvenous thrombosis, systemic embolization; TREATMENT for venous thrombosis and/or pulmonary embolus.HIGH RISK: Target INR is 2.5-3.5 for patients with mechanical heart valves.Hemoglobin [id number] 23:12:00 Test Item Value Reference Range Interpretation Comments Hemoglobin A1C (test code 5.0 % 4.3-6.1 = 4548-4) DIONI (test code = DIONI) Computer Help Desk Representative ID - [id number] Lab Interpretation (test Normal code = 89951-7) [facility] HospitalHemoglobin [id number] 23:12:00 Test Item Value Reference Range Interpretation Comments Hemoglobin A1C (test code 5.0 % 4.3-6.1 = 4548-4) DIONI (test code = DIONI) Computer Help Desk Representative ID - [id number] Lab Interpretation (test Normal code = 64575-2) [facility] HospitalHEMOGLOBIN [id number] 23:12:00 Test Item Value Reference Range Interpretation Comments HEMOGLOBIN A1C (BEAKER) (test code = 5.0 % 4.3-6.1 368) Computer Help Desk Representative ID - [id number]-[id number] 00:00:00Ordered by an unspecified provider.[facility] HospitalEKG-[id number] 00:00:00Ordered by an unspecified provider.[facility] HospitalFUNGUS CULTURE + SMEAR 2020-01-21 17:29:00 Test Item Value Reference Range Interpretation Comments CULTURE (BEAKER) (test No fungus isolated in code = 1095) 28 days FUNGUS SMEAR (BEAKER) No fungi seen (test code = 1406) ANAEROBIC [id number] 18:10:00 Test Item Value Reference Range Interpretation Comments CULTURE (BEAKER) (test No anaerobes isolated code = 1095) SARS-COV2/RT-PCR ([facility])2020-01-03 11:25:00 Test Item Value Reference Range Interpretation Comments SARS-COV2/RT-PCR (test Negative Not Detected, Negative, code = 1341826) See external report for linked test SARS-COV-2 PERFORMING LAB [facility] BO (test code = 7337616) Negative result for this test determines that [...] 564(g) of the Act.Fact Sheet for Healthcare Providers:https://www.Lookback/sites/default/files/product/documents/Fact_Shee q_NZ_Dxcqbglap_Kpta_GUEA-NdL-7.pdfFact Sheet for Healthcare Patients:https://www.Lookback/sites/default/files/product/ documents/Dshq_Dflqk_Ppoynnfb_Sbry_SSQG-EuL-1.pdfPerforming Laboratory:[facility], [place] [address]XUOOO METABOLIC PANEL 2020-01-03 05:46:00 Test Item Value [...] S NOT APPLICABLE FOR DIALYSIS PATIEN TS. Computer Help Desk Representative ID - [id number] 05:40:00 Test Item Value Reference Range Interpretation Comments PHOSPHORUS (BEAKER) (test code = 3.4 mg/dL 2.3-4.7 604) Computer Help Desk Representative ID - [id number] 05:40:00 Test Item Value Reference Range Interpretation Comments MAGNESIUM (BEAKER) (test code = 1.7 mg/dL 1.6-2.6 627) Computer Help Desk Representative ID - EDASICBC W/PLT COUNT & AUTO [id number] 05:19:00 Test Item Value Reference Range Interpretation [...] (BEAKER) (test code = 2801) BASIC METABOLIC [id number] 05:31:00 Test Item Value Reference Range Interpretation [...] S NOT APPLICABLE FOR DIALYSIS PATIEN TS. Computer Help Desk Representative ID - EDASICBC W/PLT COUNT & AUTO [id number] 05:24:00 Test Item Value Reference Range Interpretation [...] 0-1 PERCENT (BEAKER) (test code = 2801) [id number] 05:03:00 Test Item Value Reference Range Interpretation Comments PHOSPHORUS (BEAKER) (test code = 3.6 mg/dL 2.3-4.7 604) Computer Help Desk Representative ID - [id number] 05:03:00 Test Item Value Reference Range Interpretation Comments MAGNESIUM (BEAKER) (test code = 1.6 mg/dL 1.6-2.6 627) Computer Help Desk Representative ID - EDASICBC W/PLT COUNT & AUTO [id number] 05:56:00 Test Item Value Reference Range Interpretation [...] H PERCENT (BEAKER) (test code = 2801) [id number] 05:09:00 Test Item Value Reference Range Interpretation Comments PHOSPHORUS (BEAKER) (test code = 3.8 mg/dL 2.3-4.7 604) Computer Help Desk Representative ID - [id number] 05:09:00 Test Item Value Reference Range Interpretation Comments MAGNESIUM (BEAKER) (test code = 1.6 mg/dL 1.6-2.6 627) Computer Help Desk Representative ID - EDASIBASIC METABOLIC [id number] 05:09:00 Test Item Value Reference Range Interpretation [...] S NOT APPLICABLE FOR DIALYSIS PATIEN TS. Computer Help Desk Representative ID - EDASIBASIC METABOLIC [id number] 06:51:00 Test Item Value Reference Range Interpretation [...] S NOT APPLICABLE FOR DIALYSIS PATIEN TS. Computer Help Desk Representative ID - [id number] 06:45:00 Test Item Value Reference Range Interpretation Comments MAGNESIUM (BEAKER) 1.6 mg/dL 1.6-2.6 Specimen slightly (test code = 627) hemolyzed Computer Help Desk Representative ID - [id number] 06:45:00 Test Item Value Reference Range Interpretation Comments PHOSPHORUS (BEAKER) 3.5 mg/dL 2.3-4.7 Specimen slightly (test code = 604) hemolyzed Computer Help Desk Representative ID - DBCBC W/PLT COUNT & AUTO [id number] 06:29:00 Test Item Value Reference Range Interpretation [...] (BEAKER) (test code = 2801) BASIC METABOLIC [id number] 05:57:00 Test Item Value Reference Range Interpretation [...] S NOT APPLICABLE FOR DIALYSIS PATIEN TS. Computer Help Desk Representative ID - [id number] 05:49:00 Test Item Value Reference Range Interpretation Comments PHOSPHORUS (BEAKER) (test code = 3.1 mg/dL 2.3-4.7 604) Computer Help Desk Representative ID - [id number] 05:49:00 Test Item Value Reference Range Interpretation Comments MAGNESIUM (BEAKER) (test code = 1.6 mg/dL 1.6-2.6 627) Computer Help Desk Representative ID - DBVANCOMYCIN LEVEL, [id number] 05:36:00 Test Item Value Reference Range Interpretation Comments VANCOMYCIN TROUGH (BEAKER) (test 10.9 ug/mL 10.0-20.0 code = 522) Computer Help Desk Representative ID - DBCBC W/PLT COUNT & AUTO [id number] 05:29:00 Test Item Value Reference Range Interpretation [...] (BEAKER) (test code = 2801) BASIC METABOLIC [id number] 06:37:00 Test Item Value Reference Range Interpretation [...] S NOT APPLICABLE FOR DIALYSIS PATIEN TS. Computer Help Desk Representative ID - [id number] 06:18:00 Test Item Value Reference Range Interpretation Comments MAGNESIUM (BEAKER) 1.6 mg/dL 1.6-2.6 Specimen slightly (test code = 627) hemolyzed Computer Help Desk Representative ID - [id number] 06:18:00 Test Item Value Reference Range Interpretation Comments PHOSPHORUS (BEAKER) 2.7 mg/dL 2.3-4.7 Specimen slightly (test code = 604) hemolyzed Computer Help Desk Representative ID - EDASICBC W/PLT COUNT & AUTO [id number] 05:33:00 Test Item Value Reference Range Interpretation [...] = 2801) SURGICALLY OBTAINED CULTURE + GRAM [id number] 14:41:00 Test Item Value Reference Range Interpretation Comments CULTURE (BEAKER) (test code No growth = 1095) GRAM STAIN RESULT (BEAKER) 2+ WBCs (test code = 1123) GRAM STAIN RESULT (BEAKER) No organisms seen (test code = 80196) [id number] 05:41:00 Test Item Value Reference Range Interpretation Comments PHOSPHORUS (BEAKER) (test code = 2.6 mg/dL 2.3-4.7 604) Computer Help Desk Representative ID - [id number] 05:41:00 Test Item Value Reference Range Interpretation Comments MAGNESIUM (BEAKER) (test code = 1.7 mg/dL 1.6-2.6 627) Computer Help Desk Representative ID - EDASIBASIC METABOLIC [id number] 05:41:00 Test Item Value Reference Range Interpretation [...] S NOT APPLICABLE FOR DIALYSIS PATIEN TS. Computer Help Desk Representative ID - EDASIHEPATIC FUNCTION [id number] 05:41:00 Test Item Value Reference Range Interpretation [...] (test code = 19 U/L 6-55 347) Computer Help Desk Representative ID - EDASICBC W/PLT COUNT & AUTO [id number] 05:38:00 Test Item Value Reference Range Interpretation [...] PERCENT (BEAKER) (test code = 2801) TISSUE [id number] 14:02:00Surgical Pathology Report Case: [id number] Authorizing Provider: Dougie Montoya MD Collected: 12/25/2019 08:20 AM Ordering Location: [facility] Received: 12/25/2019 11:14 AM SERVICES Pathologist: [...] CHRONIC INFLAMMATION. Signing Pathologist Direct Phone Line: [phone] signed by Lois Metz MD on 12/27/2019 at 2:02 [id number], 43489Ekfogon perforationA. Stomach; B. OmentumA. Received in formalin [...] posterior wallA9, anterior wallA10, one lymph node, vgqjnkluR94, one lymph nodeB. Received in formalin labeled withthe patient's name, accession number and "omentum" is a 39.0 x 13.7 x 1.5 cm portion of wallace- yellow fibrofatty omentum with attached fibromembranous tissue. Sectioning reveals a tn-yellow fibrofatty cutsurface, No discrete lesions are identified. Supervisor Joiners sections are submitted in B1-B4. PA/pl [facility]formedB[facility], [facility] of [facility]ology, [address] [place] [address], [facility], Department of Pathology, [address] [place] [address], [facility], [facility] of [facility], [address] [place] [address], UDMV-COV2/RT-PCR ([facility])2019-12-27 12:48:00 Test Item Value Reference Range Interpretation Comments SARS-COV2/RT-PCR (test Negative Not Detected, Negative, code = 4637182) See external report for linked test SARS-COV-2 PERFORMING LAB [facility] (test code = 0430544) Negative result for this test determines that [...] 564(g) of the Act.Fact Sheet for Healthcare Providers:https://www.Lookback/sites/default/files/product/documents/Fact_Errol garcias_PP_Xkntzyrlr_Tlon_XLTM-XgP-8.pdfFact Sheet for Healthcare Patients:https://www.Lookback/sites/default/files/product/ documents/Eyiz_Pabal_Ulohlupp_Ajgg_BKMU-SmD-0.pdfPerforming Laboratory:[facility], [place] [address]JDTRJUYOAU LEVEL, [id number] 07:01:00 Test Item Value Reference Range Interpretation Comments VANCOMYCIN TROUGH (BEAKER) (test 7.1 ug/mL 10.0-20.0 L code = 522) Computer Help Desk Representative ID - PIAYA LBASIC METABOLIC [id number] 06:28:00 Test Item Value Reference Range Interpretation [...] S NOT APPLICABLE FOR DIALYSIS PATIEN TS. Computer Help Desk Representative ID - PIAYA LHEPATIC FUNCTION [id number] 06:17:00 Test Item Value Reference Range Interpretation [...] (test code = 14 U/L 6-55 347) Computer Help Desk Representative ID Denia TRIPP [id number] 06:17:00 Test Item Value Reference Range Interpretation Comments PHOSPHORUS (BEAKER) (test code = 2.2 mg/dL 2.3-4.7 L 604) Computer Help Desk Representative ID Denia TRIPP [id number] 06:17:00 Test Item Value Reference Range Interpretation Comments MAGNESIUM (BEAKER) (test code = 1.8 mg/dL 1.6-2.6 627) Computer Help Desk Representative ID Denia TRIPP LCBC W/PLT COUNT & AUTO [id number] 06:05:00 Test Item Value Reference Range Interpretation [...] PERCENT (BEAKER) (test code = 2801) POCT-GLUCOSE [id number] 11:06:00 Test Item Value Reference Range Interpretation Comments POC-GLUCOSE METER 72 mg/dL 70-110 : TESTED A T [facility] 6720 (BEAKER) (test code = SHAUNANOEMY Naik [facility], 1538) [address]: Computer Help Desk Representative/Techni pollo ID = [id number] for MAN DISLA BASIC METABOLIC [id number] 07:24:00 Test Item Value Reference Range Interpretation [...] S NOT APPLICABLE FOR DIALYSIS PATIEN TS. Computer Help Desk Representative ID - [id number] 07:18:00 Test Item Value Reference Range Interpretation Comments PHOSPHORUS (BEAKER) (test code = 2.4 mg/dL 2.3-4.7 604) Computer Help Desk Representative ID - [id number] 07:18:00 Test Item Value Reference Range Interpretation Comments MAGNESIUM (BEAKER) (test code = 1.8 mg/dL 1.6-2.6 627) Computer Help Desk Representative ID - BSHEPATIC FUNCTION [id number] 07:18:00 Test Item Value Reference Range Interpretation [...] (test code = 11 U/L 6-55 347) Computer Help Desk Representative ID - BSCBC W/PLT COUNT & AUTO [id number] 06:08:00 Test Item Value Reference Range Interpretation [...] PERCENT (BEAKER) (test code = 2801) SARS-COV2/RT-PCR ([facility])2019-12-25 18:47:00 Test Item Value Reference Range Interpretation Comments SARS-COV2/RT-PCR (test code Negative Not Detected, Negative, = 2727095) See external report for linked test SARS-COV-2 PERFORMING LAB [facility] (test code = 0421623) Negative results do not preclude SARS-CoV-2 infection [...] of the Act.Fact Sheet for Healthcare Pro viders:https://www.[employer]/Documents/Xpert%20Xpress%20SARS%20CoV-2/Fact%20Sh eets/302-3802%20LUIC-HRO-4%20HEALTHCARE%20PROVIDERS%20FACT%20SHEET.pdfFact Sheet for Healthcare Patients:https://www.[employer]/Documents/Xpert%20Xpress%20SARS%20CoV-2/Fact%20Sheets/302-3801%20SARS-COV -2%20PATIENT%20FACT%20SHEET.pdfPerforming Laboratory:[facility], [place] [address]EESQN METABOLIC [id number] 15:48:00 Test Item Value Reference Range Interpretation [...] S NOT APPLICABLE FOR DIALYSIS PATIEN TS. Computer Help Desk Representative ID - BSBASIC METABOLIC [id number] 15:00:00 Test Item Value Reference Range Interpretation [...] S NOT APPLICABLE FOR DIALYSIS PATIEN TS. Computer Help Desk Representative ID - [id number] 15:00:00 Test Item Value Reference Range Interpretation Comments MAGNESIUM (BEAKER) (test code = 1.9 mg/dL 1.6-2.6 627) Computer Help Desk Representative ID - [id number] 14:59:00 Test Item Value Reference Range Interpretation Comments PHOSPHORUS (BEAKER) (test code = 4.1 mg/dL 2.3-4.7 604) Computer Help Desk Representative ID - [id number] 12:34:00 Test Item Value Reference Range Interpretation Comments MAGNESIUM (BEAKER) (test code = 1.9 mg/dL 1.6-2.6 627) Computer Help Desk Representative ID - LMBASIC METABOLIC [id number] 12:34:00 Test Item Value Reference Range Interpretation [...] S NOT APPLICABLE FOR DIALYSIS PATIEN TS. Computer Help Desk Representative ID - [id number] 12:33:00 Test Item Value Reference Range Interpretation Comments PHOSPHORUS (BEAKER) (test code = 4.8 mg/dL 2.3-4.7 H 604) Computer Help Desk Representative ID - LMCBC (HEMOGRAM ONLY)2019-12-25 12:27:00 Test [...] 0-0 CELLS (BEAKER) (test code = 413) [id number] 11:53:00 Test Item Value Reference Range Interpretation Comments PHOSPHORUS (BEAKER) (test code = 2.9 mg/dL 2.3-4.7 604) Computer Help Desk Representative ID - LMSODIUM NA-STAT [id number] 10:15:00 Test Item Value Reference Range Interpretation Comments SODIUM (BEAKER) (test code = 381) 129 meq/L 136-145 L POTASSIUM-STAT [id number] 10:15:00 Test Item Value Reference Range Interpretation Comments POTASSIUM (BEAKER) (test code = 3.2 meq/L 3.6-5.5 L 379) GLUCOSE-STAT [id number] 10:15:00 Test Item Value Reference Range Interpretation Comments GLUCOSE RANDOM (BEAKER) (test code 116 mg/dL 70-110 H = 652) HGB/HCT (H&H) - STAT [id number] 10:15:00 Test Item Value Reference Range Interpretation Comments HEMOGLOBIN (BEAKER) (test code = 8.9 g/dL 12.0-15.0 L 410) HEMATOCRIT (BEAKER) (test code = 26.0 % 36.0-45.0 L 411) CALCIUM, [id number] 10:13:00 Test Item Value Reference Range Interpretation Comments CALCIUM IONIZED (BEAKER) (test 1.06 mmol/L 1.12-1.27 L code = 698) PH, BLOOD (BEAKER) (test code = 7.28 1810) BLOOD GAS, [id number] 10:13:00 Test Item Value Reference Range Interpretation [...] (BEAKER) (test code = 1+ few 474) Computer Help Desk Representative ID - RickManually [id number] 04:33:00 Test Item Value Reference Range Interpretation Comments MAGNESIUM (BEAKER) (test code = 1.9 mg/dL 1.6-2.6 627) Computer Help Desk Representative ID - LOAN WBASIC METABOLIC [id number] 04:33:00 Test Item Value Reference Range Interpretation [...] S NOT APPLICABLE FOR DIALYSIS PATIEN TS. Computer Help Desk Representative ID - LOAN WCBC W/PLT COUNT & AUTO [id number] 04:22:00 Test Item Value Reference Range Interpretation [...] (BEAKER) (test code = 2801) HEPATIC FUNCTION [id number] 02:51:00 Test Item Value Reference Range Interpretation [...] (test code = 18 U/L 6-55 347) Computer Help Desk Representative LAKISHA - LOAN ARS-COV2/RT-PCR ([facility])2019-12-25 01:01:00 Test Item Value Reference Range Interpretation Comments SARS-COV2/RT-PCR (test code Negative Not Detected, Negative, = 5841175) See external report for linked test SARS-COV-2 PERFORMING LAB [facility] (test code = 8173316) Negative results do not preclude SARS-CoV-2 infection [...] of the Act.Fact Sheet for Healthcare Pro viders:https://www.[employer]/Documents/Xpert%20Xpress%20SARS%20CoV-2/Fact%20Sh eets/302-3802%97XSEX-OOG-9%20HEALTHCARE%20PROVIDERS%20FACT%20SHEET.pdfFact Sheet for Healthcare Patients:https://www.[employer]/Documents/Xpert%20Xpress%20SARS%20CoV-2/Fact%20Sheets/302-3801%20SARS-COV -2%20PATIENT%20FACT%20SHEET.pdfPerforming Laboratory:[facility], [place] [id number] 00:40:00 Test Item Value Reference Range Interpretation [...] failure, acidosis, acute neurological disease, and persistent tachyarrhythmia.Computer Help Desk Representative ID - LOAN JAMES, CHEST, 1 VIEW, NON [id number] 00:40:00Reason for exam:->Chest painShould this be performed at the bedside?->YesFINAL REPORT INDICATION: Chest pain COMPARISON: None TECHNIQUE: Single frontal view of the chest. IMPRESSION: Lungs and pleura: Clear lungs. No effusion.Heart and mediastinum: Normal heart size. Unremarkable mediastinal contours.Osseous structures: No acute abnormality.Other: Mildly displaced fracture of the posterior right eighth rib of indeterminate chronicity. Signed: Ralf Mauricio [facility] Verified Date/Time: 12/25/2019 00:40:46 [id number] 00:33:00 Test Item Value Reference Range Interpretation Comments PHOSPHORUS (BEAKER) (test code = 2.8 mg/dL 2.3-4.7 604) Computer Help Desk Representative ID - [id number] 00:33:00 Test Item Value Reference Range Interpretation Comments MAGNESIUM (BEAKER) (test code = 1.3 mg/dL 1.6-2.6 L 627) Computer Help Desk Representative ID - BSBASIC METABOLIC [id number] 00:33:00 Test Item Value Reference Range Interpretation [...] S NOT APPLICABLE FOR DIALYSIS PATIEN TS. Computer Help Desk Representative ID - BSPROTHROMBIN TIME/[id number] 00:17:00 Test Item Value Reference Range Interpretation [...] mechanical heart valves.CBC W/PLT COUNT & AUTO [id number] 00:11:00 Test Item Value Reference Range Interpretation [...]
== END 2021-04-08 13:22 | disposition home or self-care (01) ==
LOC: ER 10:59
PROC: 09C4XZZ Extirpation of Matter from Left External Auditory Canal, External Approach (ICD-10-PCS; principal; 2021-04-08)
DX: M25.462 Effusion, left knee (principal); T16.2XXA Foreign body in left ear, initial encounter; I10 Essential (primary) hypertension; F10.20 Alcohol dependence, uncomplicated; F17.210 Nicotine dependence, cigarettes, uncomplicated; Z95.818 Presence of other cardiac implants and grafts
CPT/HCPCS: 99283

== ENCOUNTER 2021-05-08 11:52 | Emergency (ER) | payer OTHER ==
--- OUTSIDE RECORDS SUMMARY | 2021-05-08 12:00 | XMS REPORT | Continuity of Care Document ---
:1955 Author Organization [facility] t Address [address] [place] [address] Care Team Providers Name Role Phone Pcp [...] Policy Number Effective Date Expiration Date [facility] [id number] 2019 PF 00:00:00 [facility] [id number] 2020 00:00:[address] [facility] [id number] 2020 00:00:00 Problems Condition Condition Condition Status [...] emia 12-24 [facility] 00 [facility] Hypokalemi Hypokalemi Disease Active 2020-[address] [facility] a 12-24 [facility] 00 [facility] Perforatio Perforatio Disease Active 2020-[address] n bowel n bowel 12-23 [facility] 00 Center Allergies, Adverse Reactions, Alerts Allergy Allergy Status Severity Reaction(s) Onset Inactive Treating Comm ents Source Name Type Date Date Clinician NO KNOWN Allergy Active [facility] ALLERGIE S Social History Social Habit Start Date Stop Date Quantity Comments Source History of tobacco Cigarette Smoker [facility] use [facility] History [facility][note 3] Alcohol Binge Medical Kareem ter Sex Assigned At [facility] Tobacco use and 2020-12-05 2020-12-05 Never used [facility] - exposure 00:00:00 00:00:00 [facility] Alcohol intake 2020-12-05 2020-12-05 Current drinker [facility] (finding[facility] History [facility] 2019-12-25 2019-12-25 4 [facility] Frequency 00:00:00 00:00:00 [facility] History [facility] 2019-12-25 2019-12-25 1 [facility] - Alcohol Std Drinks 00:00:00 [facility]00 [facility] Alcohol Comment 2019-12-25 2019-12-25 quit a year ago [facility] - 00:00:00 00:00:00 [facility] Smoking Status Start Date Stop Date Source Current every day smoker 2020-12-05 00:00:00 [facility] Medications Ordered Filled Start Stop Current [...] I St -acetaminop 4-01 tablet by Vikas Carreira [employer] - hen (NORCO 00:00: mouth Medica l [...] MG 00:00: 00:00 Medical capsule 00 :00 [facility] Ciprodex 2020- No [facility] 0.3-0.1 % 08-12 [facility] - otic 00:00: 00:00 Medical suspension 00 :00 [facility] Ciprodex 2020- No [facility] 0.3-0.1 % 08-12 [facility] - otic 00:00: 00:00 Medical suspension 00 :00 [facility] Vital Signs Vital Name Observation Time Observation [...] kg Systolic blood 2020-12-05 14:55:00 102 mm[Hg] [facility] Diastolic blood 2020-12-05 14:55:00 57 mm[Hg] [facility] Heart rate 2020-12-05 14:55:00 60 /min [facility] Body temperature 2020-12-05 14:55:00 36.22 Ivonne [facility] Body height 2020-12-05 14:55:00 162.6 cm [facility] Body weight 2020-12-05 14:55:00 49.442 kg [facility] BMI 2020-12-05 14:55:00 18.71 kg/m2 [facility] Oxygen saturation in 2020-12-05 14:55:00 99 /min [facility] - Arterial blood by Medical Ce nter Pulse oximetry Respiratory rate 2020-12-05 14:21:00 18 /min [facility] Procedures Procedure Date / Time Performed Performing Clinician Shaquille laure ECG 12-LEAD 2020-12-09 14:03:00 Marlee Yang [facility] CBC W/PLT COUNT & AUTO 2020-09-04 02:44[facility] (7) 2020-09-04 02:44:00 Ewing, [facility] MAGNESIUM 2020-09-04 02:44:00 Ewing [facility] PHOSPHORUS 2020-09-04 02:44:00 Ewing [facility] CBC W/PLT COUNT & AUTO 2020-09-03 04:32:00 [facility] BASIC METABOLIC PANEL (7) 2020-09-03 04:32:00 Ewing, [facility] MAGNESIUM 2020-09-03 04:32:00 Ewing [facility] PHOSPHORUS 2020-09-03 04:32:00 Weing [facility] CBC W/PLT COUNT & AUTO 2020-09-02 04:48:00 [facility] BASIC METABOLIC PANEL (7) 2020-09-02 04:48:00 Ewing, [facility] MAGNESIUM 2020-09-02 04:48:00 Ewing, [facility] PHOSPHORUS 2020-09-02 04:48:00 Ewing [facility] POCT-GLUCOSE METER 2020-09-01 23:56:00 [facility] 2020-09-01 18:00[facility] 2020-09-01 16:26:00 Luis Alberto Wright [facility] POCT-GLUCOSE METER 2020-09-01 12:20:00 [facility] POCT-GLU[facility]SE METER 2020-09-01 12:02:00 Leon [facility] APTT 2020-09-01 09:33:00 Luis Alberto Wright [facility] CBC (HEMOGRAM ONLY) 2020-09-01 04:08:00 Luis Alberto Wright [facility] BASIC METABOLIC PANEL (7) 2020-09-01 04:08:00 [facility] 2020-09-01 04:08:00 Kaylin [facility] PHOSPHORUS 2020-09-01 04:08:00 [facility] 2020-09-01 01:10:00 [facility] PREPARE LEUKO-REDUCED RBC 2020-08-31 23:54:00 Jason [facility] APTT 2020-08-31 15:24:00 Luis Alberto Wright [facility] TROPONIN I 2020-08-31 06:15:00 Leon [facility] APTT 2020-08-31 06:15:00 Luis [facility] CBC (HEMOGRAM ONLY) 2020-08-31 04:27:00 Luis Alberto Wright [facility] COMPREHENSIVE METABOLIC 2020-08-31 04:27:00 Leon [facility] MAGNESIUM 2020-08-31 04:27:[address] [facility] PHOSPHORUS 2020-08-31 04:27:00 [facility] TROPONIN I 2020-08-31 00:02:00 Leon [facility] APTT 2020-08-30 22:00:00 Park, Quocdai [facility] 2D ECHO W/ DOPPLER 2020-08-30 15:56:28 Gal[facility] (CW/PW/COLOR) [facility] PLATELET COUNT 2020-08-30 13:51:00 Luis Alberto Wright [facility] APTT 2020-08-30 13:51:00 Luis Alberto Wright [facility] OCCULT BLOOD, STOOL 2020-08-30 07:29:00 [facility] [place] [facility] TROPONIN I 2020-08-30 05:01:00 [facility] LIPID PANEL 2020-08-30 05:01:00 [facility] B-TYPE NATRIURETIC FACTOR 2020-08-30 05:01:00 [facility] (BNP) [facility] CBC W/PLT COUNT & AUTO 2020-08-30 05:01:00 [facility] BASIC METABOLIC PANEL (7) 2020-08-30 05:01:00 [facility] MAGNESIUM 2020-08-30 05:01:00 Gal[facility] TRANSFUSE LEUKO-REDUCED 2020-08-30 04:29:41 [facility] RED BLOOD CELLS [facility] RAPID DRUG SCREEN, URINE 2020-08-30 04:05:00 [facility] TYPE AND SCREEN, 2020-08-29 23:42:00 [facility] PROTHROMBIN TIME/INR 2020-08-29 22:37:00 [facility] MAGNESIUM 2020-08-29 22:37:00 [facility] TROPONIN I 2020-08-29 22:37:00 [facility] CBC W/PLT COUNT & AUTO 2020-08-29 22:37:00 JasonGabriel [facility] (MANUAL DIFFERENTIAL) 2020-08-29 22:37:00 [facility] BASIC METABOLIC PANEL (7) 2020-08-29 22:37:00 [facility] HEPATIC FUNCTION PANEL 2020-08-29 22:37:00 Jason [facility] HEMOGLOBIN A1C 2020-08-29 22:37:00 [facility] ECG 12-LEAD 2020-08-29 22:24:57 Unknown, Hl7 Doctor [facility] CARDIAC CATH REPORT - 2020-08-29 00:00:00 Provider, Default [facility] SCAN Scanning [facility] REPORT OF PROCEDURE - 2020-08-29 00:00:00 Provider, Default [facility] ENDOSCOPY SCAN [facility] Plan of Care Planned Activity Planned Date Details Comments Source Future Scheduled 2023-08-[address] [facility] 00:00:00 (procedure) [code = [facility] 81219073] Future Scheduled 2023-08-[address] [facility] - Test 00:00:00 (procedure) [code = [facility] 92936262] Future Scheduled 2021-08-[address] [facility] - Test 00:00:00 [facility] colon (procedure) [code = 578138355] Future Scheduled 2021-08-[address] [facility] - Test 00:00:00 [facility] colon (procedure) [code = 744942715] Future Scheduled 2021-02-04 INFLUENZA VACCINE (#1) C [...] [facility] l Center cervix (procedure) [code = 973336080] Future Scheduled [address] [facility] - Test 00:00:00 [facility] cervix (procedure) [code = 288420371] Future Scheduled 1975 DTAP/TDAP/TD VACCINES CH I [...] es - Test 00:00:00 [facility] breast (procedure) [code = 359632268] Future Scheduled [address] [facility] - Test 00:00:00 [facility] breast (procedure) [code = 336291294] Encounters Start End Encounter Admission Attending Care Care Encounter Source Date/Time Date/Time Type Type Clinicians Facility Department ID 2021-03-14 Inpatient ER [facility] Cardiology [id number] 10:04:36 [facility] 2020-08-29 Inpatient ER LEON, [facility] Cardiology [id number] [facility] 21:16:00 [place] 2019-12-24 Inpatient ER NALAM, [facility] Gastro [id number] [facility] 21:00:00 HARRIET 2021-06-15 2021-06-15 Outpatient KYLE [facility] [id number] 00:00:00 00:00:00 LUIS ALBERTO [facility] 2020-12-05 2020-12-05 Office Galen [facility] [id number] 14:54:56 15:04:23 Visit Marlee [facility] 2020-12-05 2020-12-05 Travel [facility] [id number] [facility] 00:[facility] 00:[facility]:00 [facility] 2020-11-13 2020-11-13 Outpatient GALEN, [facility] [id number] 00:00:00 00:00:00 [facility] 2020-11-06 2020-11-06 Outpatient GALEN, [facility] [id number] 00:00:00 00:00:00 [facility] 2020-10-23 2020-10-23 Outpatient GALEN, [facility] [id number] 00:00:00 00:00:00 [facility] 2020-10-21 2020-10-21 Outpatient GALEN, [facility] [id number] 00:00:00 00:00:00 [facility] 2020-08-29 2020-09-04 [facility] Oh Quintero [facility] [id number] [facility] 21:16:00 12:30:00 Encounter Hermann Maria [facility] 2020-09-01 2020-09-01 Surgery De P[place], [facility] [id number] 16:00:00 17:04:00 [facility] '[facility] 2020-08-30 2020-08-30 Travel [facility] [id number] [facility] 00:[facility]00 00:00:00 [facility] 2020-08-29 2020-08-29 Orders [facility] [id number] 00:00:00 00:00:00 Only [facility] Results Test Description Test Time Test Comments Results Result Comments Source ECG 12 lead 2020-12-09 14:03:00 Test Item Value Reference Range Interpretation Comme nts Lab Interpretation (test code = 96863-9) [facility]normal [facility] [id number] 14:03:00 Test Item Value Reference Range Interpretation Comments Lab Interpretation (test code = Abnormal 43434-2) [facility] - [id number] 11:00:32 Ordered by an unspecified provider.[facility] - [id number] 11:00:32Ordered by an unspecified provider.[facility] with platelet count + automated [id number] 04:38:00 Test Item Value Reference Range Interpretation Comments WBC (test code = 6690-2) 7.1 See_Comment [A utomated message] The system [employer] generated this result transmitted ref erence range: 4.0 - 10 .0 K/L. The refe rence range was not u sed to interpret this result as normal/abnor mal. RBC (test code = 789-8) 3.83 See_Comment L [Au tomated message] The system [employer] generated this result transmitted ref erence range: 4.00 - 5 .00 M/L. The refe rence range was not u sed to interpret this result as normal/abnor mal. MCHC (test code = 786-4) 30.3 See_Comment L [A utomated message] The system [employer] generated this result transmitted ref erence range: [...] See_Comment [Aut omated message] 777-3) The system [employer] generated this result transmitted ref erence range: 150 - 43 0 K/CU MM. The referen ce range was not u sed to interpret this result as normal/abnor mal. MPV (test code = [place] [address]8312-2) to abnormal Byron telet population distribution. nRBC (test code = 413) 0 See_Comment [Aut omated message] The system [employer] generated this result transmitted ref erence range: [...] See_Comment [Aut omated message] 670) The system [employer] generated this result transmitted ref erence range: 1.80 - 8 .00 K/L. The refe rence range was not u sed to interpret this result as normal/abnor mal. # Lymphs (test code = 2.19 See_Comment [Auto mated message] 414) The system [employer] generated this result transmitted ref erence range: 1.48 - 4 .50 K/L. The refe rence range was not u sed to interpret this result as normal/abnor mal. # Monos (test code = 0.63 See_Comment [Autom ated message] 415) The system [employer] generated this result transmitted ref erence range: 0.00 - 1 .30 K/L. The refe rence range was not u sed to interpret this result as normal/abnor mal. # Eos (test code = 416) 0.14 See_Comment [Au tomated message] The system [employer] generated this result transmitted ref erence range: 0.00 - 0 .50 K/L. The refe rence range was not u sed to interpret this result as normal/abnor mal. # Baso (test code = 417) 0.03 See_Comment [A utomated message] The system [employer] generated this result transmitted ref erence range: 0.00 - 0 .20 K/L. The refe rence range was not u sed to interpret this result as normal/abnor mal. Immature 0 % 0-0 Granulocytes-Relative (test code = 2801) Lab Interpretation (test Abnormal code = 84678-2) [facility] with platelet count + automated [id number] 04:38:00 Test Item Value Reference Range Interpretation Comments WBC (test code = 6690-2) 7.1 See_Comment [A utomated message] The system [employer] generated this result transmitted ref erence range: 4.0 - 10 .0 K/L. The refe rence range was not u sed to interpret this result as normal/abnor mal. RBC (test code = 789-8) 3.83 See_Comment L [Au tomated message] The system [employer] generated this result transmitted ref erence range: 4.00 - 5 .00 M/L. The refe rence range was not u sed to interpret this result as normal/abnor mal. MCHC (test code = 786-4) 30.3 See_Comment L [A utomated message] The system [employer] generated this result transmitted ref erence range: [...] See_Comment [Aut omated message] 777-3) The system [employer] generated this result transmitted ref erence range: 150 - 43 0 K/CU MM. The referen ce range was not u sed to interpret this result as normal/abnor mal. MPV (test code = [place] 92446-9) to abnormal Byron telet population distribution. nRBC (test code = 413) 0 See_Comment [Aut omated message] The system [employer] generated this result transmitted ref erence range: [...] See_Comment [Aut omated message] 670) The system [employer] generated this result transmitted ref erence range: 1.80 - 8 .00 K/L. The refe rence range was not u sed to interpret this result as normal/abnor mal. # Lymphs (test code = 2.19 See_Comment [Auto mated message] 414) The system [employer] generated this result transmitted ref erence range: 1.48 - 4 .50 K/L. The refe rence range was not u sed to interpret this result as normal/abnor mal. # Monos (test code = 0.63 See_Comment [Autom ated message] 415) The system [employer] generated this result transmitted ref erence range: 0.00 - 1 .30 K/L. The refe rence range was not u sed to interpret this result as normal/abnor mal. # Eos (test code = 416) 0.14 See_Comment [Au tomated message] The system [employer] generated this result transmitted ref erence range: 0.00 - 0 .50 K/L. The refe rence range was not u sed to interpret this result as normal/abnor mal. # Baso (test code = 417) 0.03 See_Comment [A utomated message] The system [employer] generated this result transmitted ref erence range: 0.00 - 0 .20 K/L. The refe rence range was not u sed to interpret this result as normal/abnor mal. Immature 0 % 0-0 Granulocytes-Relative (test code = 2801) Lab Interpretation (test Abnormal code = 71702-3) [facility] W/PLT COUNT & AUTO [id number] 04:38:00 Test Item Value Reference Range Interpretation [...] GRANULOCYTES-RELATIVE PERCENT (BEAKER) (test code = 2801) [id number] 04:32:00 Test Item Value Reference Range Interpretation Comments Magnesium (test code = 1.7 mg/dL 1.5-3 10182-2) DIONI (test code = DIONI) Spa Coordinator ID - LITOOperator ID - LITOOperator ID - LITOOperator ID - GRACE Lab Interpretation (test Normal code = 25676-1) [facility] 04:32:00 Test Item Value Reference Range Interpretation Comments Magnesium (test code = 1.7 mg/dL 1.5-3 93390-4) DIONI (test code = DIONI) Spa Coordinator ID - LITOOperator ID - LITOOperator ID - LITOOperator ID - GRACE Lab Interpretation (test Normal code = 07039-9) [facility]2021-[facility]-01 04:32:00 Test Item Value Reference Range Interpretation Comments MAGNESIUM (BEAKER) (test code = 1.7 mg/dL 1.5-3.0 627) Spa Coordinator ID - LITOOperator ID - LITOOperator ID - LITOOperator ID - LITOBasic Metabolic [id number] 04:31:00 Test Item Value Reference Range Interpretation Comments Sodium (test code = 139 meq/L 470-064 6953-2) Potassium (test code 4.0 meq/L 3.6-5.5 = 2823-3) Chloride (test code = 110 meq/L 98-106 H 2075-0) CO2 (test code = 21 meq/L -29 2028-9) BUN (test code = 10 mg/dL 10-26 3094-0) Creatinine (test code 0.55 mg/dL 0.5-1.2 = 2160-0) Glucose (test code = 88 mg/dL 70-110 2345-7) Calcium (test code = 8.0 mg/dL 8.5-10.5 L 53496-0) EGFR (test code = 111 mL/min/1.73 [place] [address]-9) m NOT ACCURATE CREATININE CLEARANCE IN PREDICTING GLOMERULAR FILTRATION RATE . ESTIMATED GFR I S NOT APPLICABLE FOR DIALYSIS PATIENTS. DIONI (test code = DIONI) Spa Coordinator ID - LITOOperator ID - LITOOperator ID - LITOOperator ID - LITOOperator ID - LITOOperator ID - LITOOperator ID - LITOOperator ID - LITOOperator ID - GRACE Lab Interpretation Abnormal (test code = 42858-5) [facility] [id number] 04:31:00 Test Item Value Reference Range Interpretation Comments Sodium (test code = 139 meq/L 355-564 7162-2) Potassium (test code 4.0 meq/L 3.6-5.5 = 2823-3) Chloride (test code = 110 meq/L 98-106 H 2075-0) CO2 (test code = 21 meq/L -2027-9) BUN (test code = 10 mg/dL - 3094-0) Creatinine (test code 0.55 mg/dL 0.5-1.2 = 2160-0) Glucose (test code = 88 mg/dL 70-110 2345-7) Calcium (test code = 8.0 mg/dL 8.5-10.5 L 92263-5) EGFR (test code = 111 mL/min/1.73 [place] [address]-4) m NOT ACCURATE CREATININE CLEARANCE IN PREDICTING GLOMERULAR FILTRATION RATE . ESTIMATED GFR I S NOT APPLICABLE FOR DIALYSIS PATIENTS. DIONI (test code = DIONI) Spa Coordinator ID - LITOOperator ID - LITOOperator ID - LITOOperator ID - LITOOperator ID - LITOOperator ID - LITOOperator ID - LITOOperator ID - LITOOperator ID - GRACE Lab Interpretation Abnormal (test code = 13222-4) [facility] METABOLIC [id number] 04:31:00 Test Item Value Reference Range Interpretation [...] S NOT APPLICABLE FOR DIALYSIS PATIEN TS. Spa Coordinator ID - LITOOperator ID - LITOOperator ID - LITOOperator ID - LITOOperator ID - LITOOperator ID - LITOOperator ID - LITOOperator ID - LITOOperator ID - [id number] 04:29:00 Test Item Value Reference Range Interpretation Comments Phosphorus (test code = 3.8 mg/dL 2.5-4.5 2777-1) DIONI (test code = DIONI) Spa Coordinator ID - GRACE Lab Interpretation (test Normal code = 84417-0) [facility]20[facility]-01 04:29:00 Test Item Value Reference Range Interpretation Comments Phosphorus (test code = 3.8 mg/dL 2.5-4.5 2777-1) DIONI (test code = DIONI) Spa Coordinator ID - GRACE Lab Interpretation (test Normal code = 03655-0) [facility]2021-[facility]-01 04:29:00 Test Item Value Reference Range Interpretation Comments PHOSPHORUS (BEAKER) (test code = 3.8 mg/dL 2.5-4.5 604) Spa Coordinator ID - [id number] 06:06:00 Test Item Value Reference Range Interpretation Comments MAGNESIUM (BEAKER) (test code = 1.9 mg/dL 1.5-3.0 627) Spa Coordinator ID - [id number] ID - [id number] ID - [id number] ID - [id number] METABOLIC [id number] 06:05:00 Test Item Value Reference Range Interpretation [...] S NOT APPLICABLE FOR DIALYSIS PATIEN TS. Spa Coordinator ID - [id number] ID - [id number] ID - [id number] ID - [id number] ID - [id number] ID - [id number] ID - [id number] ID - [id number] ID - [id number] 06:03:00 Test Item Value Reference Range Interpretation Comments PHOSPHORUS (BEAKER) (test code = 3.7 mg/dL 2.5-4.5 604) Spa Coordinator ID - [id number] W/PLT COUNT & AUTO [id number] 05:39:00 Test Item Value Reference Range Interpretation [...] (BEAKER) (test code = 2801) BASIC METABOLIC [id number] 05:30:00 Test Item Value Reference Range Interpretation [...] S NOT APPLICABLE FOR DIALYSIS PATIEN TS. Spa Coordinator ID - NALINIOperator ID - NALINIOperator ID - NALINIOperator ID - NALINIOperator ID - NALINIOperator ID - NALINIOperator ID - NALINIOperator ID - NALINIOperator ID - NALINIOperator ID - [id number] 05:29:00 Test Item Value Reference Range Interpretation Comments MAGNESIUM (BEAKER) (test code = 1.6 mg/dL 1.5-3.0 627) Spa Coordinator ID - NALINIOperator ID - NALINIOperator ID - NALINIOperator ID - TAVO [id number] 05:26:00 Test Item Value Reference Range Interpretation Comments PHOSPHORUS (BEAKER) (test code = 3.6 mg/dL 2.5-4.5 604) Spa Coordinator ID - NALINICBC W/PLT COUNT & AUTO [id number] 05:17:00 Test Item Value Reference Range Interpretation [...] PERCENT (BEAKER) (test code = 2801) POC-Glucose [id number] 00:11:00 Test Item Value Reference Range Interpretation Comments POC-Glucose Meter (test 91 mg/dL 70-110 : No tified RN/MD: code = 1538) TESTED AT [place] [address]: Spa Coordinator/Techni pollo ID = [id number] for Jeovanny, Arabella Lab Interpretation (test Normal code = 18258-3) [facility] [id number] 00:11:00 Test Item Value Reference Range Interpretation Comments POC-Glucose Meter (test 91 mg/dL 70-110 : No tified RN/MD: code = 1538) TESTED AT [place] [address]: Spa Coordinator/Techni pollo ID = [id number] for Jeovanny, Arabella Lab Interpretation (test Normal code = 30899-3) [facility]SE [id number] 00:11:00 Test Item Value Reference Range Interpretation Comments POC-GLUCOSE METER 91 mg/dL 70-110 : Notified RN/MD: TESTED ([facility] [facility]ITAL) (test code = AT [address] 1538) [facility] [address]: Spa Coordinator/Techni pollo ID = [id number] for Prov ost, Arabella POCT-GLUCOSE [id number] 18:11:00 Test Item Value Reference Range Interpretation Comments POC-GLUCOSE METER 80 mg/dL 70-110 : Notified RN/MD: TESTED (BEAKER) (test code = AT [address] 15[address]) [facility] [address]: Spa Coordinator/Techni pollo ID = [id number] for [place] h, Lorita POCT-GLUCOSE [id number] 12:32:00 Test Item Value Reference Range Interpretation Comments POC-GLUCOSE METER 75 mg/dL 70-110 : Notified RN/MD: [facility]ED [facility] (test code = AT [address] 15[address]) [facility] [address]: Spa Coordinator/Techni pollo ID = [id number] for [place] h, Lorita POCT-GLUCOSE [id number] 12:14:00 Test Item Value Reference Range Interpretation Comments POC-GLUCOSE METER 79 mg/dL 70-110 : TESTED A T [facility]SL [address] ([facility]) (test code = [address] [facility], 1538) [place] [address]: Spa Coordinator/Techni pollo ID = [id number] for Bethel h, Lorita [id number] 09:54:00 Test Item Value Reference Range Interpretation Comments PTT (test code = 63.8 See_Comment H Final Infor mation 38659-5) (Auto Output) [Automated mess age] The system [employer] generated this result transmitted ref erence range: 23.0 - 3 5.0 seconds. The reference range was not used to int erpret this result as normal/abnormal . Lab Interpretation (test Abnormal code = 30106-1) [facility] Test Item Value Reference Range Interpretation Comments PTT (test code = 63.8 See_Comment H Final Infor mation 00312-7) (Auto Output) [Automated mess age] The system [employer] generated this result transmitted ref erence range: 23.0 - 3 5.0 seconds. The reference range was not used to int erpret this result as normal/abnormal . Lab Interpretation (test Abnormal code = 08532-7) [facility] 09:54:00 Test Item Value Reference Range Interpretation Comments PARTIAL THROMBOPLASTIN 63.8 seconds 23.0-35.0 H Final Information TIME ([facility]) (test (Auto Ou tput) code = 760) [id number] 07:53:00 Test Item Value Reference Range Interpretation Comments MAGNESIUM (BEAKER) 1.8 mg/dL 1.5-3.0 Specimen slightly (test code = 627) hemolyzed Spa Coordinator ID - [id number] ID - [id number] ID - [id number] ID - [id number] 07:51:00 Test Item Value Reference Range Interpretation Comments PHOSPHORUS (BEAKER) 3.4 mg/dL 2.5-4.5 Specimen slightly (test code = 604) hemolyzed Spa Coordinator ID - [id number] METABOLIC [id number] 05:16:00 Test Item Value Reference Range Interpretation [...] S NOT APPLICABLE FOR DIALYSIS PATIEN TS. Spa Coordinator ID - [id number] ID - [id number] ID - [id number] ID - [id number] ID - [id number] ID - [id number] ID - [id number] ID - [id number] ID - [id number] ID - [id number] ID - [id number] ID - [id number] ID - [id number] (hemogram only)2020-09-01 04:39:00 Test Item Value Reference Range Interpretation Comments WBC (test code = 6690-2) 8.1 See_Comment [A utomated message] The system [employer] generated this result transmitted ref erence range: 4.0 - 10 .0 K/L. The refe rence range was not u sed to interpret this result as normal/abnor mal. RBC (test code = 789-8) 3.77 See_Comment L [Au tomated message] The system [employer] generated this result transmitted ref erence range: 4.00 - 5 .00 M/L. The refe rence range was not u sed to interpret this result as normal/abnor mal. MCHC (test code = 786-4) 30.5 See_Comment L [A utomated message] The system [employer] generated this result transmitted ref erence range: [...] See_Comment [Aut omated message] 777-3) The system [employer] generated this result transmitted ref erence range: 150 - 43 0 K/CU MM. The referen ce range was not u sed to interpret this result as normal/abnor mal. nRBC (test code = 413) 0 See_Comment [Aut omated message] The system [employer] generated this result transmitted ref erence range: 0 - 0 /1 00 WBC. The refere nce range was not u sed to interpret this result as normal/abnor mal. Lab Interpretation (test Abnormal code = 74168-9) [facility] (hemogram only)2020-09-01 04:39:00 Test Item Value Reference Range Interpretation Comments WBC (test code = 6690-2) 8.1 See_Comment [A utomated message] The system [employer] generated this result transmitted ref erence range: 4.0 - 10 .0 K/L. The refe rence range was not u sed to interpret this result as normal/abnor mal. RBC (test code = 789-8) 3.77 See_Comment L [Au tomated message] The system [employer] generated this result transmitted ref erence range: 4.00 - 5 .00 M/L. The refe rence range was not u sed to interpret this result as normal/abnor mal. MCHC (test code = 786-4) 30.5 See_Comment L [A utomated message] The system [employer] generated this result transmitted ref erence range: [...] See_Comment [Aut omated message] 777-3) The system [employer] generated this result transmitted ref erence range: 150 - 43 0 K/CU MM. The referen ce range was not u sed to interpret this result as normal/abnor mal. nRBC (test code = 413) 0 See_Comment [Aut omated message] The system [employer] generated this result transmitted ref erence range: 0 - 0 /1 00 WBC. The refere nce range was not u sed to interpret this result as normal/abnor mal. Lab Interpretation (test Abnormal code = 56849-5) [facility] (HEMOGRAM ONLY)2020-09-01 04:39:00 Test Item Value Reference [...] WBC 0-0 (BEAKER) (test code = 413) [id number] 01:54:00 Test Item Value Reference Range Interpretation Comments PARTIAL THROMBOPLASTIN 62.6 seconds 23.0-35.0 H Final Information TIME (BEAKER) (test (Auto Ou tput) code = 760) Prepare Leuko-Red [id number] 23:54:00 Test Item Value Reference Range Interpretation Comments CROSSMATCH (test code = 2264) COMPATIBLE Unit ABO (test code = O Pos 3170580) UNIT NUMBER (test code = [id number] 934-0) Status (test code = 1801782) TX_TIMEINCHART Blood Bank Product (test code RED BLOOD CELLS = 2263) PRODUCT CODE (test code = [id number] 933-2) [facility] [id number] 23:54:00 Test Item Value Reference Range Interpretation Comments CROSSMATCH (test code = 2264) COMPATIBLE Unit ABO (test code = O Pos 2813736) UNIT NUMBER (test code = [id number] 934-0) Status (test code = 4688478) TX_TIMEINCHART Blood Bank Product (test code RED BLOOD CELLS = 2263) PRODUCT CODE (test code = [id number] 933-2) [facility] 16:32:00 Test Item Value Reference Range Interpretation Comments PARTIAL THROMBOPLASTIN 49.5 seconds 23.0-35.0 H Final Information TIME (BEAKER) (test (Auto Ou tput) code = 760) 2D Echo W/Doppler(CW/PW/Color)2020-08-31 09:23:55Ejection FractionSLEH ECHO HEARTLAB MKJULIANNE CPACSInterface, External Ris In - 08/31/2020 9:24 AM C DTTransthoracic Echocardiography Report (TTE) Demographics Patient Name LAILA HERNANDEZ Date of Study 08/30/2020 RADHA Gender Female Visit Number [id number] Race Unknown Room Number I202 Number Date of 1955 Referring Physician Age 65 year(s) Microbiology Manager [place] [facility] Interpreting Luis Alberto Wright Physician . Procedure [...] Gradient: 3.72 mmHg Estimated PASP: 40.4 [facility]/Doppler(CW/PW/Color)2020-08-31 09:23:55Ejection FractionSLEH ECHO HEARTLAB MKCKESSON CPACSInterface, External Ris In - 08/31/2020 9:24 AM CDTTransthoracic Echocardiography Report (TTE) Demographics Patient Name LAILA HERNANDEZ Date of Study 08/30/2020 RADHA Gender Female Visit Number [id number] Race Unknown Room Number I202 Number Date of 1955 Referring Physician Age 65 year(s) Microbiology Manager [place] [facility] Interpreting Luis Alberto Wright, Physician . Procedure [...] Peak Gradient: 3.72 mmHg Estimated PASP[id number] 07:33:00 Test Item Value Reference Range Interpretation Comments Troponin I (test code = 5.78 ng/mL 0-0.15 34820-8) DIONI (test code = DIONI) Troponin I [...] failure, acidosis, acute neurological disease, and persistent tachyarrhythmia.[facility] ID - [id number] Lab Interpretation (test Abnormal code = 38275-0) [facility] [id number] 07:33:00 Test Item Value Reference Range Interpretation Comments Troponin I (test code = 5.78 ng/mL 0-0.15 31006-5) DIONI (test code = DIONI) Troponin I [...] failure, acidosis, acute neurological disease, and persistent tachyarrhythmia.[facility] ID - [id number] Lab Interpretation (test Abnormal code = 18772-4) [facility] [id number] 07:33:00 Test Item Value Reference Range Interpretation [...] failure, acidosis, acute neurological disease, and persistent tachyarrhythmia.Spa Coordinator ID - [id number] 07:29:00 Test Item Value Reference Range Interpretation Comments MAGNESIUM (BEAKER) 1.8 mg/dL 1.5-3.0 Specimen slightly (test code = 627) hemolyzed Spa Coordinator ID - [id number] ID - [id number] ID - [id number] ID - zdxs12 [id number] 07:27:00 Test Item Value Reference Range Interpretation Comments PHOSPHORUS (BEAKER) 3.0 mg/dL 2.5-4.5 Specimen slightly (test code = 604) hemolyzed Spa Coordinator ID - [id number] 07:04:00 Test Item Value Reference Range Interpretation Comments PARTIAL THROMBOPLASTIN 38.5 seconds 23.0-35.0 H Final Information TIME (BEAKER) (test (Auto Ou tput) code = 760) Comprehensive metabolic [id number] 05:38:00 Test Item Value Reference Interpretation Comments Range Protein, Total 5.5 See_Comment L Specimen (test code = slightly 2885-2) hemolyzed [Automated message] The system which generated this result transmitted reference range : 6.0 - 8.5 gm/dL . The reference range was not used to interpret this result as normal/abnormal . Albumin (test code 2.6 g/dL 3.5-5 L Specimen = 25693-8) slightly hemolyzed Alkaline 53 U/L 30-115 Phosphatase (test code = 6768-6) Total Bilirubin 0.9 mg/dL 0.1-1.2 Specimen (test code = slightly 1975-2) hemolyzed Sodium (test code = 138 meq/L 432-040 9051-2) Potassium (test 4.4 meq/L 3.6-5.5 Specimen code [...] (test code 7.6 mg/dL 8.5-10.5 L = 48785-9) AST (test code = 52 U/L 5-40 H Specimen 1920-8) slightly hemolyzed ALT (test code = 33 U/L 5-50 Specimen 1742-6) slightly hemolyzed EGFR (test code = 101 mL/min/1[place] [address]-5) m NOT ACCURATE CREATININE CLEARANCE IN PREDICTING GLOMERULAR FILTRATION RATE . ESTIMATED GFR I S NOT APPLICABLE FOR DIALYSIS PATIENTS. DIONI (test code = Spa Coordinator ID - DIONI) RESORIANOperator ID - RESORIANOperator [...] RESORIAN Lab Interpretation Abnormal (test code = 62472-5) [facility] HospitalCom[facility] [id number] 05:38:00 Test Item Value Reference Interpretation Comments Range Protein, Total 5.5 See_Comment L Specimen (test code = slightly 2885-2) hemolyzed [Automated message] The system which generated this result transmitted reference range : 6.0 - 8.5 gm/dL . The reference range was not used to interpret this result as normal/abnormal . Albumin (test code 2.6 g/dL 3.5-5 L Specimen = 48515-7) slightly hemolyzed Alkaline 53 U/L 30-115 Phosphatase (test code = 6768-6) Total Bilirubin 0.9 mg/dL 0.1-1.2 Specimen (test code = slightly 1975-2) hemolyzed Sodium (test code = 138 meq/L 430-988 4675-2) Potassium (test 4.4 meq/L 3.6-5.5 Specimen code [...] (test code 7.6 mg/dL 8.5-10.5 L = 39000-5) AST (test code = 52 U/L 5-40 H Specimen 1920-8) slightly hemolyzed ALT (test code = 33 U/L 5-50 Specimen 1742-6) slightly hemolyzed EGFR (test code = 101 mL/min/1.[place] [address]-8) m NOT ACCURATE CREATININE CLEARANCE IN PREDICTING GLOMERULAR FILTRATION RATE . ESTIMATED GFR I S NOT APPLICABLE FOR DIALYSIS PATIENTS. DIONI (test code = Spa Coordinator ID - DIONI) RESORIANOperator ID - RESORIANOperator [...] RESORIAN Lab Interpretation Abnormal (test code = 54589-6) [facility] HospitalCOMPREHENSIVE METABOLIC [id number] 05:38:00 Test Item Value Reference Range Interpretation [...] S NOT APPLICABLE FOR DIALYSIS PATIEN TS. Spa Coordinator ID - RESORIANOperator ID - RESORIANOperator ID [...] 0-0 (BEAKER) (test code = 413) TROPONIN [id number] 01:21:00 Test Item Value Reference Range Interpretation [...] failure, acidosis, acute neurological disease, and persistent tachyarrhythmia.Spa Coordinator ID - [id number] 22:21:00 Test Item Value Reference Range Interpretation Comments PARTIAL THROMBOPLASTIN 33.0 seconds 23.0-35.0 Final Information TIME (BEAKER) (test (Auto Ou tput) code = 760) [id number] 14:16:00 Test Item Value Reference Range Interpretation Comments PARTIAL THROMBOPLASTIN 24.6 seconds 23.0-35.0 Final Information TIME (BEAKER) (test (Auto Ou tput) code = 760) Platelet [id number] 14:02:00 Test Item Value Reference Range Interpretation Comments Platelets (test code = 196 See_Comment [Aut omated message] 777-3) The system [employer] generated this result transmitted ref erence range: 150 - 43 0 K/CU MM. The referen ce range was not u sed to interpret this result as normal/abnor mal. Lab Interpretation (test Normal code = 69308-3) [facility] HospitalPlatelet [id number] 14:02:00 Test Item Value Reference Range Interpretation Comments Platelets (test code = 196 See_Comment [Aut omated message] 777-3) The system [employer] generated this result transmitted ref erence range: 150 - 43 0 K/CU MM. The referen ce range was not u sed to interpret this result as normal/abnor mal. Lab Interpretation (test Normal code = 92305-7) [facility] HospitalPLATELET [id number] 14:02:00 Test Item Value Reference Range Interpretation Comments PLATELET COUNT (BEAKER) (test 196 K/CU MM 150-430 code = 756) Occult blood, [id number] 10:57:00 Test Item Value Reference Range Interpretation Comments Occult blood (test code = 2335-8) Negative Negative Lab Interpretation (test code = Normal 88502-6) [facility] HospitalOccult blood, [id number] 10:57:00 Test Item Value Reference Range Interpretation Comments Occult blood (test code = 2335-8) Negative Negative Lab Interpretation (test code = Normal 02338-5) [facility] HospitalOCCULT BLOOD, [id number] 10:57:00 Test Item Value Reference Range Interpretation Comments FECAL OCCULT BLOOD (BEAKER) (test Negative Negative code = 618) [id number] 09:29:00 Test Item Value Reference Range Interpretation Comments MAGNESIUM (BEAKER) (test code = 1.8 mg/dL 1.5-3.0 627) Spa Coordinator ID - [id number] 05:52:00 Test Item Value Reference Range Interpretation Comments Triglycerides (test 47 mg/dL code = 2571-8) Cholesterol (test code 96 mg/dL = 2093-3) HDL (test code = 27 mg/dL 2085-02) LDL Calculated (test 60 mg/dL code = 19767-3) DIONI (test code = DIONI) Triglyceride Reference Range: Low Risk <150 Borderline 150-199 High Risk 200-499 Very High Risk >=500 Cholesterol Reference Range: Low Risk <200 Borderline 200-239 High Risk >240 HDL Cholesterol Reference Range: Low Risk >=60 High Risk <40 LDL Cholesterol Reference Range: Optimal <100 Near Optimal 100-129 Borderline 130-159 High 160-189 Very High >=190 Spa Coordinator ID - [id number] ID - [id number] ID - [id number] ID - [id number] ID - [id number] ID - [id number] [facility]-type Natriuretic Factor (BNP)2020-08-30 05:52:00 Test Item Value Reference Range Interpretation Comments BNP (test code = 68907-7) 893 pg/mL 0-100 H DIONI (test code = DIONI) Spa Coordinator ID - [id number] Lab Interpretation (test Abnormal code = 11521-1) [facility] HospitalLipid [id number] 05:52:00 Test Item Value Reference Range Interpretation Comments Triglycerides (test 47 mg/dL code = 2571-8) Cholesterol (test code 96 mg/dL = 3-3) HDL (test code = 27 mg/dL 2085-02) LDL Calculated (test 60 mg/dL code = 67845-1) DIONI (test code = DIONI) Triglyceride Reference Range: Low Risk <150 Borderline 150-199 High Risk 200-499 Very High Risk >=500 Cholesterol Reference Range: Low Risk <200 Borderline 200-239 High Risk >240 HDL Cholesterol Reference Range: Low Risk >=60 High Risk <40 LDL Cholesterol Reference Range: Optimal <100 Near Optimal 100-129 Borderline 130-159 High 160-189 Very High >=190 Spa Coordinator ID - [id number] ID - [id number] ID - [id number] ID - [id number] ID - [id number] ID - [id number] [facility] Natriure[facility] Factor (BNP)2020-08-30 05:52:00 Test Item Value Reference Range Interpretation Comments BNP (test code = 81912-2) 893 pg/mL 0-100 H DIONI (test code = DIONI) Spa Coordinator ID - [id number] Lab Interpretation (test Abnormal code = 81809-4) [facility]-TYPE NATRIURETIC FACTOR (BNP)2020-08-30 05:52:00 Test Item Value Reference Range Interpretation Comments B-TYPE NATRIURETIC PEPTIDE (BEAKER) 893 pg/mL 0-100 H (test code = 700) Spa Coordinator ID - [id number] 05:52:00 Test Item Value Reference Range Interpretation [...] Borderline 130-159 High 160-189 Very High >=190 Spa Coordinator ID - [id number] ID - [id number] ID - [id number] ID - [id number] ID - [id number] ID - [id number] TROPONIN [id number] 05:49:00 Test Item Value Reference Range Interpretation [...] failure, acidosis, acute neurological disease, and persistent tachyarrhythmia.Spa Coordinator ID - [id number] METABOLIC [id number] 05:46:00 Test Item Value Reference Range Interpretation [...] S NOT APPLICABLE FOR DIALYSIS PATIEN TS. Spa Coordinator ID - [id number] ID - [id number] ID - [id number] ID - [id number] ID - [id number] ID - [id number] ID - [id number] ID - [id number] ID - [id number] ID - [id number] W/PLT COUNT & AUTO [id number] 05:35:00 Test Item Value Reference Range Interpretation [...] (test code = 2801) Rapid drug screen, [id number] 04:13:00 Test Item Value Reference Range Interpretation Comments Barbiturate Screen Negative Negative (test code = 55180-0) Benzodiazepine Screen Negative Negative (test code = 52771-6) Cocaine (Metab.) Negative Negative Screen (test code = 3397-7) Methadone Screen (test Negative Negative code = 38303-4) Opiate Screen (test Negative Negative code = 57216-9) Cannabinoid Screen Negative Negative (test code = 32701-8) Amph/Methamph Screen Negative Negative (test code = 30656-7) Phencyclidine Screen Negative Negative (test code = 68108-1) pH, UA (test code = 6.5 5.0-8.0 5803-2) DIONI (test code = DIONI) DRUG CUTOFF CONC.Cocaine 300 ng/mL Cannabinoid 50 ng/mLBenzodiazepine 200 ng/mLBarbiturate 200 ng/mLPhencyclidine 25 ng/mLOpiate 300 ng/mLMethadone 300 ng/mLAmphetamine/ 1000 ng/mL Methamphetamine This assay provides an unconfirmed qualitative test result for the clinical management of patients in emergency situations. Chain of custody not maintained. Some dmdx-fct-wvhthjf medications, as well as adulterants, may cause inaccurate results. Clinical correlation should be applied. A more comprehensive drug screen or confirmation of a detected drug may be performed upon request.Spa Coordinator ID - [id number] ID - [id number] ID - [id number] ID - [id number] ID - [id number] ID - [id number] ID - [id number] ID - [id number] Lab Interpretation Normal (test code = 73365-9) [facility] HospitalR[facility] screen, [id number] 04:13:00 Test Item Value Reference Range Interpretation Comments Barbiturate Screen Negative Negative (test code = 52316-3) Benzodiazepine Screen Negative Negative (test code = 95455-4) Cocaine (Metab.) Negative Negative Screen (test code = 3397-7) Methadone Screen (test Negative Negative code = 56204-3) Opiate Screen (test Negative Negative code = 83387-0) Cannabinoid Screen Negative Negative (test code = 08458-2) Amph/Methamph Screen Negative Negative (test code = 26365-1) Phencyclidine Screen Negative Negative (test code = 51845-6) pH, UA (test code = 6.5 5.0-8.0 5803-2) DIONI (test code = DIONI) DRUG CUTOFF CONC.Cocaine 300 ng/mL Cannabinoid 50 ng/mLBenzodiazepine 200 ng/mLBarbiturate 200 ng/mLPhencyclidine 25 ng/mLOpiate 300 ng/mLMethadone 300 ng/mLAmphetamine/ 1000 ng/mL Methamphetamine This assay provides an unconfirmed qualitative test result for the clinical management of patients in emergency situations. Chain of custody not maintained. Some jeic-tve-hjolvtr medications, as well as adulterants, may cause inaccurate results. Clinical correlation should be applied. A more comprehensive drug screen or confirmation of a detected drug may be performed upon request.Spa Coordinator ID - [id number] ID - [id number] ID - [id number] ID - [id number] ID - [id number] ID - [id number] ID - [id number] ID - [id number] Lab Interpretation Normal (test code = 87145-8) [facility] HospitalR[facility]ID DRUG SCREEN, [id number] 04:13:00 Test Item Value Reference Range Interpretation [...] situations. Chain of custody not maintained. Some yqio-sre-vqhqaek medications, as well as adulterants, may cause inaccurate results. Clinical correlation should be applied. A more comprehensivedrug screen or confirmation of a detected drug may be performed upon request.Spa Coordinator ID - [id number] ID - [id number] ID - [id number] ID - [id number] ID - [id number] ID - [id number] ID - [id number] ID - [id number] and screen, [id number] 01:28:00 Test Item Value Reference Range Interpretation Comments ABO/RH AUTOMATED (BEAKER) (test O POSITIVE code = 2260) Ab Scrn (test code = 890-4) NEGATIVE [facility] HospitalType and screen, [id number] 01:28:00 Test Item Value Reference Range Interpretation Comments ABO/RH AUTOMATED (BEAKER) (test O POSITIVE code = 2260) Ab Scrn (test code = 890-4) NEGATIVE [facility] HospitalTROPONIN [id number] 23:38:00 Test Item Value Reference Range Interpretation [...] failure, acidosis, acute neurological disease, and persistent tachyarrhythmia.Spa Coordinator ID - [id number] function [id number] 23:23:00 Test Item Value Reference Range Interpretation Comments Protein, Total (test 5.7 See_Comment L [Autom ated code = 2885-2) message] The system which generated this result transmit miracle reference range : 6.0 - 8.5 gm/dL . The reference range was not u sed to interpret th is result as normal/abnormal . Albumin (test code = 3.0 g/dL 3.5-5 L 70083-5) Total Bilirubin (test 0.7 mg/dL 0.1-1.2 code = 1975-2) Bilirubin, Direct 0.4 mg/dL 0-0.4 (test code = 1967-7) Alkaline Phosphatase 60 U/L 30-115 (test code = 6768-6) AST (test code = 64 U/L 5-40 H 1920-8) ALT (test code = 39 U/L 5-50 1742-6) DOINI (test code = DIONI) Spa Coordinator ID - [id number] r ID - [id number] r ID - [id number] r ID - [id number] r ID - [id number] r ID - [id number] r ID - [id number] Lab Interpretation Abnormal (test code = 53826-5) [facility] HospitalHepatic function [id number] 23:23:00 Test Item Value Reference Range Interpretation Comments Protein, Total (test 5.7 See_Comment L [Autom ated code = 2885-2) message] The system which generated this result transmit miracle reference range : 6.0 - 8.5 gm/dL . The reference range was not u sed to interpret th is result as normal/abnormal . Albumin (test code = 3.0 g/dL 3.5-5 L 70428-2) Total Bilirubin (test 0.7 mg/dL 0.1-1.2 code = 1975-2) Bilirubin, Direct 0.4 mg/dL 0-0.4 (test code = 1968-7) Alkaline Phosphatase 60 U/L 30-115 (test code = 6768-6) AST (test code = 64 U/L 5-40 H 1920-8) ALT (test code = 39 U/L 5-50 1742-6) DIONI (test code = DIONI) Spa Coordinator ID - [id number] r ID - [id number] r ID - [id number] r ID - [id number] r ID - [id number] r ID - [id number] r ID - [id number] Lab Interpretation Abnormal (test code = 96708-2) [facility] HospitalBASIC METABOLIC [id number] 23:23:00 Test Item Value Reference Range Interpretation [...] S NOT APPLICABLE FOR DIALYSIS PATIEN TS. Spa Coordinator ID - [id number] ID - [id number] ID - [id number] ID - [id number] ID - [id number] ID - [id number] ID - [id number] ID - [id number] ID - [id number] ID - [id number] HEPATIC FUNCTION [id number] 23:23:00 Test Item Value Reference Range Interpretation [...] (test code = 39 U/L 5-50 347) Spa Coordinator ID - [id number] ID - [id number] ID - [id number] ID - [id number] ID - [id number] ID - [id number] ID - [id number] 23:23:00 Test Item Value Reference Range Interpretation Comments MAGNESIUM (BEAKER) (test code = 1.7 mg/dL 1.5-3.0 627) Spa Coordinator ID - [id number] ID - [id number] ID - [id number] ID - [id number] [id number] 23:21:00 Test Item Value Reference Range Interpretation Comments Total Counted (test code = 1351) WBC Morphology (test code = 487) Normal Platelet Morphology (test code = 486) Normal Polychromasia (test code = 478) 1+ few Target Cells (test code = 480) 1+ few [facility] [id number] 23:21:00 Test Item Value Reference Range Interpretation Comments Total Counted (test code = 1351) WBC Morphology (test code = 487) Normal Platelet Morphology (test code = 486) Normal Polychromasia (test code = 478) 1+ few Target Cells (test code = 480) 1+ few [facility] W/PLT COUNT & AUTO [id number] 23:21:00 Test Item Value Reference Range Interpretation [...] (test code = 1+ few 480) Prothrombin time/[id number] 23:18:00 Test Item Value Reference Interpretation Comments [...] valves. Lab Interpretation Abnormal (test code = 14883-5) [facility] Hospital[facility]throm[facility] time/[id number] 23:18:00 Test Item Value Reference Interpretation Comments [...] valves. Lab Interpretation Abnormal (test code = 05267-5) [facility] HospitalPROTHROMBIN TIME/[id number] 23:18:00 Test Item Value Reference Range Interpretation Comments PROTIME (BEAKER) 12.3 seconds 9.3-12.0 H Final Infor mation (test code = 759) (Auto Outp ut) INR (BEAKER) (test 1.11 See_Comment Final Inf ormation code = 370) (Auto Output) [Automated mess age] The system [employer] generated this result transmitted ref erence range: <=5.90. The reference range was not used to int erpret this result as normal/abnormal . RECOMMENDED COUMADIN/WARFARIN INR THERAPY RANGESSTANDARD DOSE: 2.0 - 3.0 Includes: PROPHYLAXIS forvenous thrombosis, systemic embolization; TREATMENT for venous thrombosis and/or pulmonary embolus.HIGH RISK: Target INR is 2.5-3.5 for patients with mechanical heart valves.Hemoglobin [id number] 23:12:00 Test Item Value Reference Range Interpretation Comments Hemoglobin A1C (test code 5.0 % 4.3-6.1 = 4548-4) DIONI (test code = DIONI) Spa Coordinator ID - [id number] Lab Interpretation (test Normal code = 47389-3) [facility] [id number] 23:12:00 Test Item Value Reference Range Interpretation Comments Hemoglobin A1C (test code 5.0 % 4.3-6.1 = 4548-4) DIONI (test code = DIONI) Spa Coordinator ID - [id number] Lab Interpretation (test Normal code = 66626-0) [facility] HospitalHEMOGLOBIN [id number] 23:12:00 Test Item Value Reference Range Interpretation Comments HEMOGLOBIN A1C (BEAKER) (test code = 5.0 % 4.3-6.1 368) Spa Coordinator ID - [id number] 00:00:00Ordered by an unspecified provider.[facility] HospitalEKG-[id number] 00:00:00Ordered by an unspecified provider.[facility] HospitalFUN[facility] CULTURE + SMEAR 2020-01-21 17:29:00 Test Item Value Reference Range Interpretation Comments CULTURE (BEAKER) (test No fungus isolated in code = 1095) 28 days FUNGUS SMEAR (BEAKER) No fungi seen (test code = 1406) ANAEROBIC [id number] 18:10:00 Test Item Value Reference Range Interpretation Comments CULTURE (BEAKER) (test No anaerobes isolated code = 1095) SARS-COV2/RT-PCR ([facility])2020-01-03 11:25:00 Test Item Value Reference Range Interpretation Comments SARS-COV2/RT-PCR (test Negative Not Detected, Negative, code = 8786497) See external report for linked test SARS-COV-2 PERFORMING LAB [facility] (test code = 7011991) Negative result for this test determines that [...] 564(g) of the Act.Fact Sheet for Healthcare Providers:https://www.Synarc/sites/default/files/product/documents/Fact_Shee y_CU_Pzcwexrqd_Nnri_DWYY-PpI-5.pdfFact Sheet for Healthcare Patients:https://www.Synarc/sites/default/files/product/ documents/Sfku_Exlrc_Kxqjiqzw_Mipx_TCSE-ByS-6.pdfPerforming Laboratory:[facility], [place] [address]KZPWW METABOLIC PANEL 2020-01-03 05:46:00 Test Item Value [...] S NOT APPLICABLE FOR DIALYSIS PATIEN TS. Spa Coordinator ID - [id number] 05:40:00 Test Item Value Reference Range Interpretation Comments PHOSPHORUS (BEAKER) (test code = 3.4 mg/dL 2.3-4.7 604) Spa Coordinator ID - [id number] 05:40:00 Test Item Value Reference Range Interpretation Comments MAGNESIUM (BEAKER) (test code = 1.7 mg/dL 1.6-2.6 627) Spa Coordinator ID - EDASICBC W/PLT COUNT & AUTO [id number] 05:19:00 Test Item Value Reference Range Interpretation [...] (BEAKER) (test code = 2801) BASIC METABOLIC [id number] 05:31:00 Test Item Value Reference Range Interpretation [...] S NOT APPLICABLE FOR DIALYSIS PATIEN TS. Spa Coordinator ID - EDASICBC W/PLT COUNT & AUTO [id number] 05:24:00 Test Item Value Reference Range Interpretation [...] 0-1 PERCENT (BEAKER) (test code = 2801) [id number] 05:03:00 Test Item Value Reference Range Interpretation Comments PHOSPHORUS (BEAKER) (test code = 3.6 mg/dL 2.3-4.7 604) Spa Coordinator ID - [id number] 05:03:00 Test Item Value Reference Range Interpretation Comments MAGNESIUM (BEAKER) (test code = 1.6 mg/dL 1.6-2.6 627) Spa Coordinator ID - EDASICBC W/PLT COUNT & AUTO [id number] 05:56:00 Test Item Value Reference Range Interpretation [...] H PERCENT (BEAKER) (test code = 2801) [id number] 05:09:00 Test Item Value Reference Range Interpretation Comments PHOSPHORUS (BEAKER) (test code = 3.8 mg/dL 2.3-4.7 604) Spa Coordinator ID - [id number] 05:09:00 Test Item Value Reference Range Interpretation Comments MAGNESIUM (BEAKER) (test code = 1.6 mg/dL 1.6-2.6 627) Spa Coordinator ID - EDASIBASIC METABOLIC [id number] 05:09:00 Test Item Value Reference Range Interpretation [...] S NOT APPLICABLE FOR DIALYSIS PATIEN TS. Spa Coordinator ID - EDASIBASIC METABOLIC [id number] 06:51:00 Test Item Value Reference Range Interpretation [...] S NOT APPLICABLE FOR DIALYSIS PATIEN TS. Spa Coordinator ID - [id number] 06:45:00 Test Item Value Reference Range Interpretation Comments MAGNESIUM (BEAKER) 1.6 mg/dL 1.6-2.6 Specimen slightly (test code = 627) hemolyzed Spa Coordinator ID - [id number] 06:45:00 Test Item Value Reference Range Interpretation Comments PHOSPHORUS (BEAKER) 3.5 mg/dL 2.3-4.7 Specimen slightly (test code = 604) hemolyzed Spa Coordinator ID - DBCBC W/PLT COUNT & AUTO [id number] 06:29:00 Test Item Value Reference Range Interpretation [...] (BEAKER) (test code = 2801) BASIC METABOLIC [id number] 05:57:00 Test Item Value Reference Range Interpretation [...] S NOT APPLICABLE FOR DIALYSIS PATIEN TS. Spa Coordinator ID - [id number] 05:49:00 Test Item Value Reference Range Interpretation Comments PHOSPHORUS (BEAKER) (test code = 3.1 mg/dL 2.3-4.7 604) Spa Coordinator ID - [id number] 05:49:00 Test Item Value Reference Range Interpretation Comments MAGNESIUM (BEAKER) (test code = 1.6 mg/dL 1.6-2.6 627) Spa Coordinator ID - DBVANCOMYCIN LEVEL, [id number] 05:36:00 Test Item Value Reference Range Interpretation Comments VANCOMYCIN TROUGH (BEAKER) (test 10.9 ug/mL 10.0-20.0 code = 522) Spa Coordinator ID - DBCBC W/PLT COUNT & AUTO [id number] 05:29:00 Test Item Value Reference Range Interpretation [...] (BEAKER) (test code = 2801) BASIC METABOLIC [id number] 06:37:00 Test Item Value Reference Range Interpretation [...] S NOT APPLICABLE FOR DIALYSIS PATIEN TS. Spa Coordinator ID - [id number] 06:18:00 Test Item Value Reference Range Interpretation Comments MAGNESIUM (BEAKER) 1.6 mg/dL 1.6-2.6 Specimen slightly (test code = 627) hemolyzed Spa Coordinator ID - [id number] 06:18:00 Test Item Value Reference Range Interpretation Comments PHOSPHORUS (BEAKER) 2.7 mg/dL 2.3-4.7 Specimen slightly (test code = 604) hemolyzed Spa Coordinator ID - EDASICBC W/PLT COUNT & AUTO [id number] 05:33:00 Test Item Value Reference Range Interpretation [...] = 2801) SURGICALLY OBTAINED CULTURE + GRAM [id number] 14:41:00 Test Item Value Reference Range Interpretation Comments CULTURE (BEAKER) (test code No growth = 1095) GRAM STAIN RESULT (BEAKER) 2+ WBCs (test code = 1123) GRAM STAIN RESULT (BEAKER) No organisms seen (test code = 99463) [id number] 05:41:00 Test Item Value Reference Range Interpretation Comments PHOSPHORUS (BEAKER) (test code = 2.6 mg/dL 2.3-4.7 604) Spa Coordinator ID - [id number] 05:41:00 Test Item Value Reference Range Interpretation Comments MAGNESIUM (BEAKER) (test code = 1.7 mg/dL 1.6-2.6 627) Spa Coordinator ID - EDASIBASIC METABOLIC [id number] 05:41:00 Test Item Value Reference Range Interpretation [...] S NOT APPLICABLE FOR DIALYSIS PATIEN TS. Spa Coordinator ID - EDASIHEPATIC FUNCTION [id number] 05:41:00 Test Item Value Reference Range Interpretation [...] (test code = 19 U/L 6-55 347) Spa Coordinator ID - EDASICBC W/PLT COUNT & AUTO [id number] 05:38:00 Test Item Value Reference Range Interpretation [...] PERCENT (BEAKER) (test code = 2801) TISSUE [id number] 14:02:00Surgical Pathology Report Case: [id number] Authorizing Provider: Dougie Montoya MD Collected: 12/25/2019 08:20 AM Ordering Location: [facility] Received: 12/25/2019 11:14 AM SERVICES Pathologist: [...] CHRONIC INFLAMMATION. Signing Pathologist Direct Phone Line: [phone] signed by Lois Metz MD on 12/27/2019 at 2:02 [id number], [id number] perforationA. Stomach; B. OmentumA. Received in formalin [...] posterior wallA9, anterior wallA10, one lymph node, vcobrdugF28, one lymph nodeB. Received in formalin labeled withthe patient's name, accession number and "omentum" is a 39.0 x 13.7 x 1.5 cm portion of wallace- yellow fibrofatty omentum with attached fibromembranous tissue. Sectioning reveals a tn-yellow fibrofatty cutsurface, No discrete lesions are identified. Pilot Can Router sections are submitted in B1-B4. PA/pl [facility]formedB[facility], [facility] of [facility], [address] [place] [address], [facility], Department of Pathology, [address] [place] [address], [facility], Department of Pathology, [address] [place] [address], AUUG-COV2/RT-PCR ([facility])2019-12-27 12:48:00 Test Item Value Reference Range Interpretation Comments SARS-COV2/RT-PCR (test Negative Not Detected, Negative, code = 4248817) See external report for linked test SARS-COV-2 PERFORMING LAB [facility] (test code = 3289595) Negative result for this test determines that [...] 564(g) of the Act.Fact Sheet for Healthcare Providers:https://www.[employer]/sites/default/files/product/documents/Fact_Errol garciah_AM_Toecrslom_Bzpl_VSAJ-HwO-5.pdfFact Sheet for Healthcare Patients:https://www.[employer]/sites/default/files/product/ documents/Fxam_Bhbej_Oxqqisdt_Cshk_MPRQ-AtP-3.pdfPerforming Laboratory:[facility], [place] [address]VFGXEOZYUV LEVEL, [id number] 07:01:00 Test Item Value Reference Range Interpretation Comments VANCOMYCIN TROUGH (BEAKER) (test 7.1 ug/mL 10.0-20.0 L code = 522) Spa Coordinator ID - PIAYA LBASIC METABOLIC [id number] 06:28:00 Test Item Value Reference Range Interpretation [...] S NOT APPLICABLE FOR DIALYSIS PATIEN TS. Spa Coordinator ID - PIAYA LHEPATIC FUNCTION [id number] 06:17:00 Test Item Value Reference Range Interpretation [...] (test code = 14 U/L 6-55 347) Spa Coordinator ID Denia TRIPP [id number] 06:17:00 Test Item Value Reference Range Interpretation Comments PHOSPHORUS (BEAKER) (test code = 2.2 mg/dL 2.3-4.7 L 604) Spa Coordinator ID Denia TRIPP [id number] 06:17:00 Test Item Value Reference Range Interpretation Comments MAGNESIUM (BEAKER) (test code = 1.8 mg/dL 1.6-2.6 627) Spa Coordinator ID Denia TRIPP LCBC W/PLT COUNT & AUTO [id number] 06:05:00 Test Item Value Reference Range Interpretation [...] PERCENT (BEAKER) (test code = 2801) POCT-GLUCOSE [id number] 11:06:00 Test Item Value Reference Range Interpretation Comments POC-GLUCOSE METER 72 mg/dL 70-110 : TESTED A T [facility] [address] (BEAKER) (test code = SHAUNANOEMY Naik [facility], 1538) [address]: Spa Coordinator/Techni pollo ID = [id number] for MAN DISLA BASIC METABOLIC [id number] 07:24:00 Test Item Value Reference Range Interpretation [...] S NOT APPLICABLE FOR DIALYSIS PATIEN TS. Spa Coordinator ID - [id number] 07:18:00 Test Item Value Reference Range Interpretation Comments PHOSPHORUS (BEAKER) (test code = 2.4 mg/dL 2.3-4.7 604) Spa Coordinator ID - [id number] 07:18:00 Test Item Value Reference Range Interpretation Comments MAGNESIUM (BEAKER) (test code = 1.8 mg/dL 1.6-2.6 627) Spa Coordinator ID - BSHEPATIC FUNCTION [id number] 07:18:00 Test Item Value Reference Range Interpretation [...] (test code = 11 U/L 6-55 347) Spa Coordinator ID - BSCBC W/PLT COUNT & AUTO [id number] 06:08:00 Test Item Value Reference Range Interpretation [...] (BEAKER) (test code = 2801) SARS-COV2/RT-PCR ([facility])2019-12-25 18:47:00 Test Item Value Reference Range Interpretation Comments SARS-COV2/RT-PCR (test code Negative Not Detected, Negative, = 0474725) See external report for linked test SARS-COV-2 PERFORMING LAB [facility] (test code = 6014929) Negative results do not preclude SARS-CoV-2 infection [...] of the Act.Fact Sheet for Healthcare Pro viders:https://www.uAfrica.29West/Documents/Xpert%20Xpress%20SARS%20CoV-2/Fact%20Sh eets/302-3802%63XNSC-IKP-9%20HEALTHCARE%20PROVIDERS%20FACT%20SHEET.pdfFact Sheet for Healthcare Patients:https://www.WritePath/Documents/Xpert%20Xpress%20SARS%20CoV-2/Fact%20Sheets/302-3801%20SARS-COV -2%20PATIENT%20FACT%20SHEET.pdfPerforming Laboratory:[facility], [place] [address]YOPTM METABOLIC [id number] 15:48:00 Test Item Value Reference Range Interpretation [...] S NOT APPLICABLE FOR DIALYSIS PATIEN TS. Spa Coordinator ID - BSBASIC METABOLIC [id number] 15:00:00 Test Item Value Reference Range Interpretation [...] S NOT APPLICABLE FOR DIALYSIS PATIEN TS. Spa Coordinator ID - [id number] 15:00:00 Test Item Value Reference Range Interpretation Comments MAGNESIUM (BEAKER) (test code = 1.9 mg/dL 1.6-2.6 627) Spa Coordinator ID - [id number] 14:59:00 Test Item Value Reference Range Interpretation Comments PHOSPHORUS (BEAKER) (test code = 4.1 mg/dL 2.3-4.7 604) Spa Coordinator ID - [id number] 12:34:00 Test Item Value Reference Range Interpretation Comments MAGNESIUM (BEAKER) (test code = 1.9 mg/dL 1.6-2.6 627) Spa Coordinator ID - LMBASIC METABOLIC [id number] 12:34:00 Test Item Value Reference Range Interpretation [...] S NOT APPLICABLE FOR DIALYSIS PATIEN TS. Spa Coordinator ID - [id number] 12:33:00 Test Item Value Reference Range Interpretation Comments PHOSPHORUS (BEAKER) (test code = 4.8 mg/dL 2.3-4.7 H 604) Spa Coordinator ID - LMCBC (HEMOGRAM ONLY)2019-12-25 12:27:00 Test [...] 0-0 CELLS (BEAKER) (test code = 413) [id number] 11:53:00 Test Item Value Reference Range Interpretation Comments PHOSPHORUS (BEAKER) (test code = 2.9 mg/dL 2.3-4.7 604) Spa Coordinator ID - LMSODIUM NA-STAT [id number] 10:15:00 Test Item Value Reference Range Interpretation Comments SODIUM (BEAKER) (test code = 381) 129 meq/L 136-145 L POTASSIUM-STAT [id number] 10:15:00 Test Item Value Reference Range Interpretation Comments POTASSIUM (BEAKER) (test code = 3.2 meq/L 3.6-5.5 L 379) GLUCOSE-STAT [id number] 10:15:00 Test Item Value Reference Range Interpretation Comments GLUCOSE RANDOM (BEAKER) (test code 116 mg/dL 70-110 H = 652) HGB/HCT (H&H) - STAT [id number] 10:15:00 Test Item Value Reference Range Interpretation Comments HEMOGLOBIN (BEAKER) (test code = 8.9 g/dL 12.0-15.0 L 410) HEMATOCRIT (BEAKER) (test code = 26.0 % 36.0-45.0 L 411) CALCIUM, [id number] 10:13:00 Test Item Value Reference Range Interpretation Comments CALCIUM IONIZED (BEAKER) (test 1.06 mmol/L 1.12-1.27 L code = 698) PH, BLOOD (BEAKER) (test code = 7.28 1810) BLOOD GAS, [id number] 10:13:00 Test Item Value Reference Range Interpretation [...] (BEAKER) (test code = 1+ few 474) Spa Coordinator ID - RickManually nmfdLDVDHXQCY7945-23-62 04:33:00 Test Item Value Reference Range Interpretation Comments MAGNESIUM (BEAKER) (test code = 1.9 mg/dL 1.6-2.6 627) Spa Coordinator ID - LOAN WBASIC METABOLIC [id number] 04:33:00 Test Item Value Reference Range Interpretation [...] S NOT APPLICABLE FOR DIALYSIS PATIEN TS. Spa Coordinator ID - LOAN WCBC W/PLT COUNT & AUTO [id number] 04:22:00 Test Item Value Reference Range Interpretation [...] (BEAKER) (test code = 2801) HEPATIC FUNCTION [id number] 02:51:00 Test Item Value Reference Range Interpretation [...] (test code = 18 U/L 6-55 347) Spa Coordinator LAKISHA - LOAN ARS-COV2/RT-PCR ([facility])2019-12-25 01:01:00 Test Item Value Reference Range Interpretation Comments SARS-COV2/RT-PCR (test code Negative Not Detected, Negative, = 0898805) See external report for linked test SARS-COV-2 PERFORMING LAB [facility] (test code = 4149626) Negative results do not preclude SARS-CoV-2 infection [...] of the Act.Fact Sheet for Healthcare Pro viders:https://www.eVendor Check/Documents/Xpert%20Xpress%20SARS%20CoV-2/Fact%20Sh eets/302-3802%55KSQP-QIP-5%20HEALTHCARE%20PROVIDERS%20FACT%20SHEET.pdfFact Sheet for Healthcare Patients:https://www.WritePath/Documents/Xpert%20Xpress%20SARS%20CoV-2/Fact%20Sheets/302-3801%20SARS-COV -2%20PATIENT%20FACT%20SHEET.pdfPerforming Laboratory:[facility], [place] [address]EEBIGSRL [id number] 00:40:00 Test Item Value Reference Range Interpretation [...] failure, acidosis, acute neurological disease, and persistent tachyarrhythmia.Spa Coordinator ID - LOAN JAMES, CHEST, 1 VIEW, NON [id number] 00:40:00Reason for exam:->Chest painShould this be performed at the bedside?->YesFINAL REPORT INDICATION: Chest pain COMPARISON: None TECHNIQUE: Single frontal view of the chest. IMPRESSION: Lungs and pleura: Clear lungs. No effusion.Heart and mediastinum: Normal heart size. Unremarkable mediastinal contours.Osseous structures: No acute abnormality.Other: Mildly displaced fracture of the posterior right eighth rib of indeterminate chronicity. Signed: Ralf Mauricio MDRsil[facility] Verified Date/Time: 12/25/2019 00:40:46 [id number] 00:33:00 Test Item Value Reference Range Interpretation Comments PHOSPHORUS (BEAKER) (test code = 2.8 mg/dL 2.3-4.7 604) Spa Coordinator ID - [id number] 00:33:00 Test Item Value Reference Range Interpretation Comments MAGNESIUM (BEAKER) (test code = 1.3 mg/dL 1.6-2.6 L 627) Spa Coordinator ID - BSBASIC METABOLIC [id number] 00:33:00 Test Item Value Reference Range Interpretation [...] S NOT APPLICABLE FOR DIALYSIS PATIEN TS. Spa Coordinator ID - BSPROTHROMBIN TIME/[id number] 00:17:00 Test Item Value Reference Range Interpretation [...] mechanical heart valves.CBC W/PLT COUNT & AUTO [id number] 00:11:00 Test Item Value Reference Range Interpretation [...]
[2021-05-08 13:00] LABS: Absolute Lymphocytes (CBC) 1.2 K/uL (0.7-4.9); Basophils % 0.4 % (0-1.3); MPV 8.2 fL (7.6-11.3); RBC Red Blood Cell Count 3.04 M/uL (3.86-4.86)
[2021-05-08 13:02] LABS: Protime INR 1.29
[2021-05-08 13:19] LABS: ALT/SGPT 39 U/L (12-78); AST/SGOT 62 U/L (15-37); Albumin 2.5 g/dL (3.4-5.0); Alkaline Phosphatase 77 U/L (45-117); BUN Blood Urea Nitrogen 7 mg/dL (7-18); Bicarbonate 28 mmol/L (21-32); Bilirubin Direct 0.4 mg/dL (0-0.2); Bilirubin Total 0.7 mg/dL (0.2-1.0); Glucose Level 103 mg/dL (74-106); Lipase 138 U/L (73-393); Potassium 3.4 mmol/L (3.5-5.1); Protein, Total 7.6 g/dL (6.4-8.2); Sodium Level 140 mmol/L (136-145)
--- NOTE | 2021-05-08 14:18 | RAD REPORT ---
EXAM DESCRIPTION: CT - Chest For Pe Angio - 05/08/2021 1:59 pm CLINICAL HISTORY: sob, eleavated troponin COMPARISON: Chest Abdomen W Con dated 12/24/2019; Abdomen Pelvis W Contrast dated 05/08/2021 TECHNIQUE: Dynamically enhanced 3 mm thick images of the chest were obtained during administration o f approximately 150mL Isovue 370 IV contrast. Coronal and oblique MIP reconstruction images were gene rated and reviewed. Exam utilizes a protocol to evaluate the pulmonary arterial tree. All CT scans are performed using dose optimization technique as appropriate and may include automated exposure control or mA/KV adjustment according to patient size. FINDINGS: No pulmonary emboli are identified. The aorta as imaged shows no acute or suspicious finding. No pericardial thickening or effusion. No acute infiltrate of the lung parenchyma. There is minimal atelectasis along each posterior lung fi eld. In the right upper lobe at the level of the aortic arch (image 43/208) there is a 12 mm AP x 10 mm TR soft tissue mass. No other mass or nodule seen. Early primary lung malignancy would be a primar y consideration. This is a change from the 2019 CT study. No pleural effusion or pleural thickening. No mediastinal or hilar suspicious masses. No chest wall masses or abnormal axillary lymphadenopathy. Old posterior rib injuries evident on the right. Splenic abnormality is addressed in separate CT rep ort. IMPRESSION: No pulmonary emboli identified. Approximately 12 x 10 mm mass of the right upper lobe change from the 2020 study. This is suspicious for malignancy.
--- NOTE | 2021-05-08 14:25 | RAD REPORT ---
EXAM DESCRIPTION: CT - Abdomen Pelvis W Contrast - 05/08/2021 1:59 pm CLINICAL HISTORY: ABD PAIN COMPARISON: Abdomen Pelvis W Contrast dated 08/29/2020; Abdomen Pelvis W Contrast dated 0 TECHNIQUE: Biphasic, helical CT imaging of the abdomen and pelvis was performed following 100 ml non -ionic IV contrast. No oral contrast administered. All CT scans are performed using dose optimization technique as appropriate and may include automated exposure control or mA/KV adjustment according to patient size. FINDINGS: No suspicious findings in the lung bases. Chest findings are detailed in separate CT chest PE study The liver and pancreas show no suspicious findings. Gallbladder is absent. Extrahepatic biliary dilat ation is not outside of normal range for a post cholecystectomy patient. The spleen is grossly abnormal. There are several lacerations of the splenic parenchyma fragmenting t he body of the spleen. The medial central vascular pedicle is intact. Along the superior and lateral margin of the splenic body there is 12 cm CC x 15 cm AP x 7 cm TR heterogeneous low-density collectio n that is confined by a rind or capsule. On the PE study there is no evidence for active extravasatio n. This is believed to be most likely a remote splenic injury with large contained subcapsular old he matoma. Symmetric renal function is seen with no hydronephrosis or suspicious renal mass. No pyelonephritis o r acute parenchymal process. No bladder abnormalities. No adrenal abnormalities. Uterus is absent or atrophic. No suspicious adnexal finding. No dilated bowel loops or bowel wall thickening. Postsurgical changes are present to the anterior gas tric wall. No acute GI process seen. No free air or pneumatosis. Trace amount of free fluid is seen i n the dependent portion of the pelvis. Metal spray artifact is present from surgical clips along the pelvic floor. No hernia, mass or bulky lymphadenopathy. No suspicious bony findings. IMPRESSION: Grossly abnormal spleen with multiple last separations fragment in the splenic parenchym a. 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 There is no active extravasation on the arterial phase and this is likely chronic and the source for the patient's left upper quadrant pain.
[2021-05-08] MEDS ORDERED: ONDANSETRON 4 MG/2 ML VIAL ONE (15:03)
[2021-05-08] MEDS ORDERED: MORPHINE 4 MG/ML SYR ONE (15:03)
[2021-05-08] MEDS ORDERED: NA CHLORIDE 0.9% 250 ML ONE (16:39)
--- NOTE | 2021-05-08 16:44 | ER ---
Nurse's Notes [facility] Name: Lakeisha Kumari Age: 66 yrs Sex: Female : 1955 Arrival Date: 05/08/2021 Time: 11:55 Bed 16 Private MD: Diagnosis: Splenic Laceration;Anemia;Elevated Troponin Presentation: 05/08 12:02 Chief complaint: Patient states: Had blood work drawn with [facility], was told to [facility] come in for hemoglobin 6.3. Feels weak and tired for over 1 month. L sided abd pain with nausea. Coronavirus screen: Vaccine status: Patient reports being unvaccinated. Client denies travel out of the [place] in the last 14 days. At this time, the client does not indicate any symptoms associated with coronavirus-19. Ebola Screen: Patient denies travel to an Ebola-affected area in the 21 days before illness onset. Initial Sepsis Screen: Does the patient meet any 2 criteria? No. Patient's initial sepsis screen is negative. Does the patient have a suspected source of infection? Yes: Acute abdominal pain. Risk Assessment: Do you want to hurt yourself or someone else? Patient reports no desire to harm self or others. Onset of symptoms was April 08, 2021. 12:02 Method Of Arrival: Ambulatory 1 12:02 Acuity: KVNG 2 ll1 Triage Assessment: 12:05 General: Appears in no apparent distress. uncomfortable, Behavior is calm, cooperative, bp appropriate for age, Reports fatigue for. Pain: Complains of pain in abdomen. EENT: No deficits noted. Neuro: No deficits noted. Cardiovascular: No deficits noted. Respiratory: No deficits noted. GI: No signs and/or symptoms were reported involving the gastrointestinal system. : No signs and/or symptoms were reported regarding the genitourinary system. Derm: No deficits noted. Musculoskeletal: No deficits noted. Historical: - Allergies: 12:04 No Known Allergies; ll1 - PMHx: 12:04 "Heart attack or a stroke"; Alcoholism; Anxiety; Atrial Fib; Cirrhosis; Depression; ll1 gastric ulcer; Hepatitis; Hypertension; - PSHx: 12:04 cardiac stent; Cholecystectomy; Jaw Sx; ll1 - Immunization history:: Client reports having NOT received the Covid vaccine. Flu vaccine status is unknown. - Social history:: Smoking status: Patient reports the use of cigarette tobacco products, smokes one pack cigarettes per day. Screenin:25 Abuse screen: Denies threats or abuse. Denies injuries from another. Nutritional bp screening: No deficits noted. Tuberculosis screening: No symptoms or risk factors identified. Fall Risk None identified. Assessment: 12:05 General: SEE TRIAGE NOTE. bp 13:45 Reassessment: No changes from previously documented assessment. Patient and/or family bp updated on plan of care and expected duration. Pain level reassessed. PT TO CT. 14:07 Reassessment: PT RETURNED FROM CT. bp 14:28 Reassessment: No changes from previously documented assessment. Patient and/or family bp updated on plan of care and expected duration. Pain level reassessed. PHLEBOTOMY AT B/S FOR RECOLLECT. 16:40 Reassessment: No changes from previously documented assessment. Patient and/or family bp updated on plan of care and expected duration. Pain level reassessed. REPORT CALLED TO [facility] FOR TRANSFER. CONSENT FOR BLOOD SIGNED AND WITNESSED. 16:45 Reassessment: PRBC-LR TRANSFUSION INITIATED. bp 17:51 Reassessment: [facility]/S FOR TRANSPORT. bp Vital Signs: 12:02 BP 151 / 66; Pulse 60; Resp 17; Temp 97.6; Pulse Ox 99% ; Weight 51.26 kg; Height 5 ft. ll1 4 in. (162.56 cm); Pain 6/10; 13:46 BP 123 / 78; Pulse 56; Resp 16; Pulse Ox 100% ; bp 14:28 BP 150 / 75; Pulse 65; Resp 19; Pulse Ox 100% ; bp 16:00 BP 121 / 62; Pulse 56; Resp 17; Pulse Ox 100% ; bp 17:00 BP 136 / 44; Pulse 50; Resp 17; Temp 97.5; Pulse Ox 100% ; bp 12:02 Body Mass Index 19.40 (51.26 kg, 162.56 cm) ll1 ED Course: 11:55 Patient arrived in ED. mr 12:02 Arm band placed on Patient placed in an exam room, on a stretcher. ll1 12:04 Triage completed. 1 12:07 Sage Corbin PA is PHCP. [facility] 12:07 Ortiz Woods MD is Attending Physician. [facility] 12:22 Peter Tucker, RN is Primary Nurse. bp 12:25 Patient has correct armband on for positive identification. Bed in low position. Call bp light in reach. Side rails up X2. 12:49 SARS-COV-2 RT PCR Sent. [facility] 12:49 COVID swab sent to lab. [facility] 12:51 Inserted saline lock: 20 gauge in right antecubital area, using aseptic technique. bp Blood collected. 14:00 CT Abd/Pelvis - IV Contrast Only In Process Unspecified. EDMS 14:00 CT Chest For PE Angio In Process Unspecified. EDMS 15:18 initiated a transfer with Alan from the [facility] Transfer Center. eb 15:31 connected the interventional radiologist forming yardage control operator for [facility] with Sage Carr for patient eb transfer consultation. 15:58 connected the hospitalist forming yardage control operator for [facility] with Sage Carr for patient transfer eb consultation. 16:05 administrative approval given by Alan Amezcua/ patient has been accepted to [facility] 10A bed 1016/ Dr. Horner has accepted the patient in transfer/ report to be called to [phone]. 17:51 No provider procedures requiring assistance completed. Patient transferred, IV remains bp in place. Administered Medications: 14:50 Drug: morphine 4 mg Route: IVP; Site: right forearm; bp 14:50 Drug: Zofran (Ondansetron) 4 mg Route: IVP; Site: right forearm; bp Outcome: 16:44 ER care complete, transfer ordered by MD. monson 17:51 Transferred by ground EMS by private ambulance to [facility], bp Transfer form completed. 17:51 Condition: stable 17:51 Instructed on the need for transfer. 18:14 Patient left the ED. bp Signatures: Dispatcher [employer] EDMS Sage Corbin PA PA jmm RiveraKerrie Maria [facility] Peter Tucker, RN RN Kadi Oliveros Lynsay, RN RN ll1
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
[2021-05-08 18:32] VITALS: O2SAT 100
[2021-05-08 18:37] VITALS: BP 136/44; TEMP 97.5
== END 2021-05-08 18:14 | disposition short-term general hospital (02) ==
LOC: ER 11:52
DX: S36.039A Unspecified laceration of spleen, initial encounter (principal); W50.1XXA Accidental kick by another person, initial encounter; D64.9 Anemia, unspecified; R77.8 Other specified abnormalities of plasma proteins; I48.91 Unspecified atrial fibrillation; F32.A Depression, unspecified; I10 Essential (primary) hypertension
CPT/HCPCS: 93005; 85025; 80048; 36415; 86900; 86850; 85610; 86901; 80076; 84484; 83690; 71275; 74177; 96375; 96374; 99285; U0003; Q9967; P9016; J7050; J2405

== ENCOUNTER 2021-10-27 20:04 | Emergency (ER) | payer OTHER ==
--- NOTE | 2021-10-27 21:59 | RAD REPORT ---
EXAM DESCRIPTION: CT - CTHCSPWOC - 10/27/2021 9:38 pm CLINICAL HISTORY: Fall, facial injury COMPARISON: Head C Spine Mpr Wo Con dated 02/06/2021 TECHNIQUE: Axial 5 mm thick images of the head were obtained. Axial 2 mm thick images of the cervic al spine were obtained with sagittal and coronal reconstruction images generated and reviewed. All CT scans are performed using dose optimization technique as appropriate and may include automated exposure control or mA/KV adjustment according to patient size. FINDINGS: No intracranial hemorrhage, mass, edema or acute intracranial finding. No acute cortical i nfarction. No cortical edema or sulcal effacement. No extra-axial fluid collections. Left side mastoi d air cells are clear. Postsurgical change and chronic opacification in the right mastoid air cells n oted and stable. No globe or orbit abnormality seen. Mild atrophy changes are present. Ventricles are in proportion to volume loss. Chronic ischemic changes are present. A small focal area of bold infar ction is present in the posterior left frontal lobe periventricular white matter. This matches prior imaging. Small left periorbital scalp hematoma is present. Underlying bone is intact. Dense arterial tree calcifications are present. Cervical body height and alignment are normal. C5-6 and C6-7 disc space narrowing and endplate spurri ng changes are present. Mild bilateral foraminal stenosis seen at these levels from uncovertebral dm nt hypertrophy. Advanced facet hypertrophy L4-5 causes significant bony foraminal stenosis. No fractu re or acute bony abnormality. Central canal detail is inherently limited. No paraspinal mass or hematoma. IMPRESSION: Negative CT head examination for acute or significant finding. Intracranial findings are similar to prior study. Small left periorbital scalp hematoma present. Underlying bone is intact. C5-C7 cervical spine degenerative change similar to comparison. No acute finding.
--- NOTE | 2021-10-27 22:05 | RAD REPORT ---
EXAM DESCRIPTION: RAD - Hip Left 2 View - 10/27/2021 9:51 pm CLINICAL HISTORY: PAIN COMPARISON: No comparisons FINDINGS: AP and frogleg views of the left hip were obtained. There is no fracture or dislocation. No AVN or focal femoral head abnormality. Degenerative change at the left hip joint is minimal. Dense arterial tree calcifications are seen. No acute finding of the left hemipelvis. Patient does have left SI joint degenerative change. No acute soft tissue finding. Dense arterial tree calcifications are present. IMPRESSION: Negative left hip examination for fracture or other acute findings.
[2021-10-27 22:19] LABS: Absolute Lymphocytes (CBC) 2.1 K/uL (0.7-4.9); Hematocrit 28.2 % (36.0-45.0); MPV 7.8 fL (7.6-11.3); RBC Red Blood Cell Count 3.66 M/uL (3.86-4.86)
[2021-10-27 22:26] LABS: Albumin 3.1 g/dL (3.4-5.0); Bilirubin Total 0.3 mg/dL (0.2-1.0); Potassium 3.3 mmol/L (3.5-5.1)
--- NOTE | 2021-10-27 23:19 | ER ---
Nurse's Notes [facility] Name: Lakeisha Kumari Age: 66 yrs Sex: Female : 1955 Arrival Date: 10/27/2021 Time: 20:09 Bed 19 Private MD: Diagnosis: Fall on same level, unspecified;Contusion of other part of head;Contusion of left hip;Alcohol abuse Presentation: 10/27 20:11 Chief complaint: EMS states: weakness. Coronavirus screen: Vaccine status: Patient katalina reports being unvaccinated. Ebola Screen: Patient negative for fever greater than or equal to 101.5 degrees Fahrenheit, and additional compatible Ebola Virus Disease symptoms Patient denies exposure to infectious person. Patient denies travel to an Ebola-affected area in the 21 days before illness onset. Initial Sepsis Screen: Does the patient meet any 2 criteria? No. Patient's initial sepsis screen is negative. Does the patient have a suspected source of infection? No. Patient's initial sepsis screen is negative. Risk Assessment: Do you want to hurt yourself or someone else? Patient reports no desire to harm self or others. Onset of symptoms was October 21, 2021. 20:11 Method Of Arrival: EMS: [facility] katalina 20:11 Acuity: KVNG 3 katalina Triage Assessment: 20:16 General: Appears in no apparent distress. Pt does have left sided facial droop, but no katalina other deficits. She has no weakness to any extremity, unilaterally. . Behavior is calm, cooperative. Pain: Denies pain. Historical: - Home Meds: 20:13 amlodipine oral [Active]; katalina - PMHx: 20:13 Alcoholism; Anxiety; Atrial Fib; Cirrhosis; Depression; gastric ulcer; Hepatitis; katalina Hypertension; "Heart attack or a stroke"; - PSHx: 20:13 cardiac stent; Cholecystectomy; Jaw Sx; katalina - Immunization history:: Client reports having NOT received the Covid vaccine. Flu vaccine is up to date. - Social history:: Smoking status: Patient reports the use of cigarette tobacco products, smokes one pack cigarettes per day. Patient uses alcohol, on a daily basis. "I had stopped, but I started again.". Screenin:21 Abuse screen: Denies threats or abuse. Denies injuries from another. Nutritional katalina screening: No deficits noted. Tuberculosis screening: No symptoms or risk factors identified. Fall Risk Fall in past 12 months (25 points). Assessment: 20:18 Reassessment: Patient appears in no apparent distress at this time. No changes from katalina previously documented assessment. Pt is in NAD. She reports having a fall on Tuesday, but did not warrant an ER visit. She reports feeling "weak" and states that the facial droop was not present, prior to the fall on Tuesday. She has some bruising to the left side of her face. She is AAOx3. 20:51 Reassessment: The provider is at bedside assessing the pt. katalina 21:26 Reassessment: X-ray and CT are at bedside for the exam. The pt was able to get OOB to a [facility] and had no difficulty in ambulating. 22:30 Reassessment: The pt ambulated out of her room and stated,"I want to go home." She said katalina that she is feeling better and wants to call her sister to pick her up. I informed my charge nurse. The pt has no other deficits, other than the left sided facial droop, but per her report "It's been like that.". 22:48 Reassessment: The pt was unable to get in touch with her sister or cousin, so she katalina said,"I'll just stay and try to get some sleep." She also said,"...it's not like y'all are doing anything..." and she trailed off. The pt then spoke with the other pt's mother that she knew from rehab, to ask for a ride. 23:13 Reassessment: The pt was seen attempting to leave the ER with her SL in place. I told katalina her that the doctor would be happy to speak with her, if she could wait. She said,"Y'all didn't even hook me up (gesturing to the bs monitor) or empty my commode!" I told her that I was sorry and I would have been happy to, but given how steady and far she can ambulate, the restroom is across the [place] from her room. SL was taken out in the pt's room and it was bandaged. The pt then left to the waiting area exit, with an even steady gait. Vital Signs: 20:11 BP 112 / 66; Pulse 52; Resp 16; Temp 98.1; Pulse Ox 100% on R/A; Pain 0/10; katalina 20:21 BP 112 / 66; Pulse 52; Resp 16; Temp 98.1; Pulse Ox 100% on R/A; Pain 0/10; katalina 22:21 BP 117 / 57; Pulse 55; Resp 16; Temp 98.1; Pulse Ox 100% on R/A; katalina ED Course: 20:09 Patient arrived in ED. katalina 20:11 Brandi López, RN is Primary Nurse. katalina 20:13 Triage completed. katalina 20:17 Anam Villasenor NP is PHCP. pm1 20:17 Wale Brady MD is Attending Physician. pm1 20:22 Patient has correct armband on for positive identification. Bed in low position. Call katalina light in reach. Side rails up X2. Pulse ox on. NIBP on. 20:22 Maintain EMS IV. Dressing intact. Good blood return noted. Site clean \\T\\ dry. Gauge \\T\\ katalina site: left FA 20 gauge. 21:26 CBC with Diff Sent. katalina 21:26 ETOH Level Sent. katalina 21:26 CMP Sent. katalina 21:27 No provider procedures requiring assistance completed. katalina 21:28 Arm band placed on. katalina 21:40 CT Head C Spine In Process Unspecified. EDMS 21:53 Hip Left 2 View XRAY In Process Unspecified. EDMS 23:16 intact, bleeding controlled, No redness/swelling at site. Pressure dressing applied. katalina Administered Medications: No medications were administered Medication: 21:28 VIS not applicable for this client. katalina Outcome: 21:27 Condition: stable katalina 23:19 Discharge ordered by . pm1 23:25 Discharged to home ambulatory. katalina 23:25 Discharge instructions given to pt did not wait for her paperwork 23:26 Patient left the ED. katalina Signatures: Dispatcher [employer] EDMS Anam Villasenor, LINDA SHAPER OPERATOR pm1 Brandi López, RN RN katalina
--- NOTE | 2021-10-27 23:19 | EDPHYS ---
Physician Documentation [facility] Name: Lakeisha Kumari Age: 66 yrs Sex: Female : 1955 Arrival Date: 10/27/2021 Time: 20:09 Bed 19 Private MD: ED Physician Wale Brady HPI: 10/27 20:57 This 66 yrs old Female presents to ER via EMS with unknown complaint. pm1 20:57 Details of fall: The patient fell from an upright position, while walking. Onset: The pm1 symptoms/episode began/occurred 4 day(s) ago. Associated injuries: The patient sustained injury to the head, contusion, Left hip. Severity of symptoms: in the emergency department the symptoms are unchanged. The patient has experienced similar episodes in the past, a few times. The patient has not recently seen a physician. Patient with a history of alcoholism, and was drinking when she fell injury 4 days ago with resulting contusion to her left side of face and pain to left hip. Patient able to walk post injury without any difficulty. Patient also reporting generalized weakness today. Historical: - Home Meds: 20:13 amlodipine oral [Active]; katalina - PMHx: 20:13 Alcoholism; Anxiety; Atrial Fib; Cirrhosis; Depression; gastric ulcer; Hepatitis; katalina Hypertension; "Heart attack or a stroke"; - PSHx: 20:13 cardiac stent; Cholecystectomy; Jaw Sx; katalina - Immunization history:: Client reports having NOT received the Covid vaccine. Flu vaccine is up to date. - Social history:: Smoking status: Patient reports the use of cigarette tobacco products, smokes one pack cigarettes per day. Patient uses alcohol, on a daily basis. "I had stopped, but I started again.". ROS: 20:57 Constitutional: Negative for fever, chills, and weight loss, Cardiovascular: Negative pm1 for chest pain, palpitations, and edema, Respiratory: Negative for shortness of breath, cough, wheezing, and pleuritic chest pain, Abdomen/GI: Negative for abdominal pain, nausea, vomiting, diarrhea, and constipation, Back: Negative for injury and pain. 20:57 MS/extremity: Positive for pain, of the Left hip. 20:57 Skin: Positive for Contusion to left eye. 20:57 All other systems are negative. Exam: 20:57 Constitutional: This is a well developed, well nourished patient who is awake, alert, pm1 and in no acute distress. Head/Face: Normocephalic, atraumatic. 20:57 Neck: Trachea midline, no thyromegaly or masses palpated, and no cervical lymphadenopathy. Supple, full range of motion without nuchal rigidity, or vertebral point tenderness. No Meningismus. Back: No spinal tenderness. No costovertebral tenderness. Full range of motion. 20:57 Cardiovascular: Exam negative for acute changes, Rate: normal, Rhythm: regular, Pulses: no pulse deficits are appreciated. 20:57 Respiratory: Exam negative for acute changes, respiratory distress, shortness of breath. 20:57 Musculoskeletal/extremity: Extremities: grossly normal except: noted in the left hip: tenderness, There is no evidence of decreased ROM, deformity. 20:57 Skin: Appearance: normal except for affected area, ecchymosis, noted on the, left eye, that are mild. 20:57 Neuro: Exam negative for acute changes, Orientation: is normal, Mentation: is normal, Motor: moves all fours. Vital Signs: 20:11 BP 112 / 66; Pulse 52; Resp 16; Temp 98.1; Pulse Ox 100% on R/A; Pain 0/10; katalina 20:21 BP 112 / 66; Pulse 52; Resp 16; Temp 98.1; Pulse Ox 100% on R/A; Pain 0/10; katalina 22:21 BP 117 / 57; Pulse 55; Resp 16; Temp 98.1; Pulse Ox 100% on R/A; katalina MDM: 20:54 Patient medically screened. pm1 22:36 Data reviewed: vital signs. Data interpreted: Pulse oximetry: on room air is 100 %. pm1 Interpretation: normal. 22:36 ED course: Patient informed nursing staff that she would like to go home now and that pm1 her ride is on the way to pick her up. 23:17 Counseling: I had a detailed discussion with the patient and/or guardian regarding: the pm1 historical points, exam findings, and any diagnostic results supporting the discharge/admit diagnosis, lab results, radiology results, the need for outpatient follow up, to return to the emergency department if symptoms worsen or persist or if there are any questions or concerns that arise at home. 05/24 20:56 Order name: CBC with Diff pm1 10/27 20:56 Order name: ETOH Level; Complete Time: 22:36 pm1 10/27 20:56 Order name: CMP; Complete Time: 22:36 pm1 10/27 20:56 Order name: CT Head C Spine; Complete Time: 22:04 pm1 10/27 20:56 Order name: Hip Left 2 View XRAY; Complete Time: 22:18 pm1 10/27 22:23 Order name: CBC Smear Scan EDLA 10/27 20:56 Order name: IV Saline Lock; Complete Time: 21:26 pm1 Administered Medications: No medications were administered Disposition Summary: 10/27/21 23:19 Discharge Ordered Location: Home pm1 Problem: new pm1 Symptoms: have improved pm1 Condition: Stable pm1 Diagnosis - Fall on same level, unspecified pm1 - Contusion of other part of head pm1 - Contusion of left hip pm1 - Alcohol abuse pm1 Followup: pm1 - With: Emergency Department - When: As needed - Reason: Worsening of condition Followup: pm1 - With: Private Physician - When: 2 - 3 days - Reason: Recheck today's complaints, Continuance of care, Re-evaluation by your physician Discharge Instructions: - Discharge Summary Sheet pm1 - Facial or Scalp Contusion pm1 - Fall Prevention in the Home, Adult pm1 - Alcohol Abuse and Nutrition pm1 Forms: - Medication Reconciliation Form pm1 - Thank You Letter pm1 - Antibiotic Education pm1 - Prescription Opioid Use pm1 Addendum: 10/29/2021 03:35 Co-signature as Attending Physician, Wale Brady MD I agree with the assessment and k dr plan of care. Signatures: Dispatcher [employer] Wale Tucker MD MD kdr Attema, Lee, BAND PRESSER-C BAND PRESSER-Cla1 Anam Villasenor, COMPUTER SCIENCE TEACHER COMPUTER SCIENCE TEACHER pm1 Brandi López, RN RN katalina
[2021-10-27 23:42] VITALS: TEMP 98.1; O2SAT 100
[2021-10-27 23:45] VITALS: BP 117/57
[2021-10-28 00:04] LABS: Anisocytosis 1+; Blood Morphology Comment NOTED (NOT SEEN); Ovalocytes 2+; Platelet Estimate ADEQ; White Blood Cell Scan OK (OK)
== END 2021-10-27 23:26 | disposition home or self-care (01) ==
LOC: ER 20:04
DX: S05.12XA Contusion of eyeball and orbital tissues, left eye, initial encounter (principal); S70.02XA Contusion of left hip, initial encounter; F10.20 Alcohol dependence, uncomplicated; W18.30XA Fall on same level, unspecified, initial encounter; I10 Essential (primary) hypertension; F32.A Depression, unspecified; I48.91 Unspecified atrial fibrillation; F17.210 Nicotine dependence, cigarettes, uncomplicated; Z95.818 Presence of other cardiac implants and grafts
CPT/HCPCS: 36415; 70450; 72125; 80053; 80320; 85025; 99284

== ENCOUNTER 2022-09-28 19:03 | Emergency (ER) | payer OTHER ==
--- OUTSIDE RECORDS SUMMARY | 2022-09-28 19:25 | XMS REPORT | Continuity of Care Document ---
:1955 Author Organization [facility] t Address [address] [facility] [address] [address] [place] [address] Care Team Providers Name Role Phone Rick Evie Primary Care Physician GASTON JOSEPH Attending Clinician Unavailable HARRIET IRENE Attending Clinician Unavailable PIPO GALAN Attending Clinician Unavailable Pipo Chand Attending Clinician Doctor Unassigned, [place] Attending Clinician Unavailable Juan Ramon Gutiérrez MD Attending Clinician JUAN RAMON GUTIÉRREZ Attending Clinician Unavailable Nurse, Lei Mustafa Attending Clinician Unavailable LUIS ALBERTO ADAMS' Attending Clinician Unavailable Marlee Yang NP Attending Clinician Keith CREWS, Americo Shannon Attending Clinician Unavailable Shayy BURGOS, Dameon Mendoza Attending Clinician Cee BURGOS, James Mcmahon Attending Clinician Myah Barlow MD Attending Clinician MYAH BARLOW Attending Clinician Unavailable Gricelda BURGOS, Veena Ralph Attending Clinician [phone] GALEN, JINU Attending Clinician Unavailable Gaston Joseph MD Attending Clinician Hermann Maria MD Attending Clinician Luis Alberto Adams MD' Attending Clinician [phone] Amarilys Oneal Attending Clinician Anat Tovar MD Attending Clinician GASTON JOSEPH Admitting Clinician Unavailable HARRIET IRENE Admitting Clinician Unavailable James Mills MD Admitting Clinician JAMES MILLS Admitting Clinician Unavailable DOTTY GREGG Admitting Clinician Unavailable Payers Payer Name Policy Type Policy Number Effective Date Expiration Date S zohaib [facility] [employer] [id number] 2019 PFFS 00:00:00 [facility] DUAL [id number] 2021 COMP HMO D SNP 00:00:00 [employer] [id number] 2019 PLUS 00:00:00 [place] [id number] 2022 00:00:00 [facility] [id number] 2020 2020 00:00:00 00:00:00 [facility] [id number] 2020 00:00:00 CDC REVIEW [id number] 2019 2020 00:00:00 00:00:00 Problems Condition Condition Condition Status Onset Resolution Last Treating Co mments Source Name Details Category Date Date Treatment Clinician Date Moderate Moderate Disease Active 2020-06 Unive rs laceration laceration 2-06 [place] of [place] [facility] [place] Acute Acute Disease Active 2020-06 [facility] blood loss blood loss 2-06 it y of anemia anemia 00:00: [place] 00 Medical Branch Spleen Spleen Disease Active 2020-06 Univers hematoma, hematoma, 2-03 ity of initial initial 00:00: [place] encounter encounter 00 [facility] NSTEMI NSTEMI Disease Rec[facility]re [facility] 3[facility]26 [facility] elevated elevated 00:00: Medica l myocardial myocardial 00 Ce nter infarction infarction ) ) Other Other Disease Recurre [facility] cirrhosis cirrhosis nce 12-24 [facility] of liver of liver 00:00: Medica l 00 Center Hyponatrem Hyponatrem Disease Active [facility] ia ia 12-24 [facility] Hypomagnes Hypomagnes Disease Active [facility] emia emia 12-24 [facility] 00:[facility] Hypokalemi Hypokalemi Disease Active [facility] a a 12-24 [facility] 00:[facility]: [facility] Center Perforatio Perforatio Disease Recurre [facility] n bowel n bowel nce 12-23 [facility] 00:[facility]: [facility] Left hand Left hand Disease Active Uni vers pain pain 6-22 ity of 00:00: [place] [facility] normal normal Disease Recurre Univers mammogram mammogram nce 3-22 ity of outside outside 00:00: 2010 Medical Branch Hepatitis Hepatitis Disease Recurre 2008-06 Overview: Univers C, chronic C, chronic nce 0-07 Formattin ity of 00:00: g of this note Medical might be Branch different from the original. 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 Intelligence Specialist Utility Hypertensi Hypertensi Disease Recurre Univers on on nce ity of [facility] Allergies, Adverse Reactions, Alerts Allergy Allergy Status Severity Reaction(s) Onset Inactive Treating Comm ents Source Name Type Date Date Clinician NO KNOWN Allergy Active [facility]SL ALLERGIE S NO KNOWN Drug Active Univers ALLERGIE Class ity of S [facility] Social History Social Habit Start Date Stop Date Quantity Comments Source History of tobacco Cigarette Smoker University of use [facility] History SDOH [facility] Alcohol Binge Medical K[address] [facility] Exposure to 2022-05-11 2022-05-21 Not sure [facility] SARS-CoV-2 (event) 00:00:00 08:08:00 [facility] Cigarettes smoked 2022-03-17 2022-03-17 Univers ity of current (pack per 00:00:00 00:00:00 ) - Reported Branch Cigarette 2022-03-17 2022-03-17 University of pack-years 00:00:00 00:00:00 [facility] Tobacco Comment 2022-03-17 2022-03-17 No intent on Univers ity of 00:00:00 00:00:00 quitting [facility] Alcohol intake 2021-05-27 2021-05-27 [facility] alcohol [facility] Center (finding) Alcohol Comment 2019-12-25 2019-12-25 quit a year ago [facility] 00:00:00 [facility]:00 [facility] Center Tobacco use and 2019-12-25 2019-12-[address] Dip[facility] kes exposure 00:00:00 00:00:00 tobacco non-user Medical Center History SDAK 2019-12-25 2019-12-[address] [facility] Alcohol Frequency 00:00:00 00:00:00 Medical Center History [facility] 2019-12-25 2019-12-[address] [facility] Alcohol Std Drinks 00:00:00 00:00:00 Medica l Center Sex Assigned At [address] [facility] 00:00:00 00:00:00 Medical Center Smoking Status Start Date Stop Date Source Smokes tobacco daily 2019-12-25 00:00:00 [facility] Medications Ordered Filled Start Stop Current Ordering Indication Dosage Frequency Signature Comments Components Source Medication Medication Date Date Medication? Clinician (SIG) Name Name sodium 2021-06- No [id number] 30mg Uni vers hyaluronate 2-16 -16 9109 ity of (viscosup) 15:15: 15:07 [place] (ORTHOVISC) 00 :00 Medical injection Branch 30 mg sodium 2021-06- No [id number] 30mg 30 mg, U nivers hyaluronate 2-16 -16 9109 Intra-vesta i ty of (viscosup) 15:15: 15:07 Owen manriquez s (ORTHOVISC) 00 :00 ONCE, 1 Medic al injection dose, On Branch 30 mg Tue05/21/22 at 0915, Routine sodium 2021-06- No [id number] 30mg Uni vers hyaluronate 2-16 - 9109 ity of (viscosup) 15:15: 15:07 [place] (ORTHOVISC) 00 :00 Medical injection Branch 30 mg sodium 2021-06- No [id number] 30mg 30 mg, U nivers hyaluronate 2-16 -16 9109 Intra-vesta i ty of (viscosup) 15:15: 15:07 [place] manriquez s (ORTHOVISC) 00 :00 ONCE, 1 Medic al injection dose, On Branch 30 mg Tue05/21/22 at 0915, Routine TAKE 1 2021-0 No 75 TABLET 8-18 DAILY WITH 00:00: FOOD 00 NEEDED. TAKE 1 2021-0 No TABLET 8-18 DAILY WITH 00:00: FOOD 00 NEEDED. TAKE 1 2021-0 No TABLET 8-18 DAILY WITH 00:00: FOOD 00 NEEDED. &lt 2021-0 No 40 8-16 00:00: 00 &lt 2-0 No 40 8-16 00:00: 00 &lt 2021-0 No 40 8-16 00:00: 00 Dose 2-0 No Unknown 3-08 00:00: 00 Dose 2022-0 No Unknown 3-08 00:00: 00 Dose 2-0 No Unknown 3-08 00:00: 00 Dose 2-0 No Unknown 3-08 00:00: 00 Dose 2022-0 No Unknown 3-08 00:00: 00 Dose 2022-0 No Unknown 3-08 00:00: 00 Dose 2022-0 No Unknown 3-08 00:00: 00 Dose 2022-0 No Unknown 3-08 00:00: 00 Dose 2022-0 No Unknown 3-08 00:00: 00 Dose 2022-0 No Unknown 3-08 00:00: 00 Dose 2022-0 No Unknown 3-08 00:00: 00 Dose 2022-0 No Unknown 3-08 00:00: 00 Dose 2022-0 No Unknown 3-08 00:00: 00 Dose 2022-0 No Unknown 3-08 00:00: 00 Dose 2022-0 No Unknown 3-08 00:00: 00 Dose 2022-0 No Unknown 3-08 00:00: 00 Dose 2022-0 No Unknown 3-08 00:00: 00 Dose 2022-0 No Unknown 3-08 00:00: 00 Dose 2022-0 No Unknown 3-08 00:00: 00 Dose 2022-0 No Unknown 3-08 00:00: 00 Dose 2022-0 No Unknown 3-08 00:00: 00 Dose 2022-0 No Unknown 3-08 00:00: 00 Dose 2022-0 No Unknown 3-08 00:00: 00 Dose 2022-0 No Unknown 3-08 00:00: 00 Dose 2022-0 No Unknown 3-08 00:00: 00 Dose 2022-0 No Unknown 3-08 00:00: 00 Dose 2022-0 No Unknown 3-08 00:00: 00 Dose 2022-0 No Unknown 3-08 00:00: 00 Dose 2022-0 No Unknown 3-08 00:00: 00 Dose 2022-0 No Unknown 3-08 00:00: 00 Dose 2022-0 No Unknown 3-08 00:00: 00 Dose 2022-0 No Unknown 3-08 00:00: 00 Dose 2022-0 No Unknown 3-08 00:00: 00 Dose 2022-0 No Unknown 3-08 00:00: 00 Dose 2022-0 No Unknown 3-08 00:00: 00 Dose 2022-0 No Unknown 3-08 00:00: 00 Dose 2022-0 No Unknown 3-08 00:00: 00 Dose 2022-0 No Unknown 3-08 00:00: 00 Dose 2022-0 No Unknown 3-08 00:00: 00 Dose 2022-0 No Unknown 3-08 00:00: 00 Dose 2022-0 No Unknown 3-08 00:00: 00 Dose 2022-0 No Unknown 3-08 00:00: 00 Dose 2022-0 No Unknown 3-08 00:00: 00 Dose 2022-0 No Unknown 3-08 00:00: 00 Dose 2022-0 No Unknown 3-08 00:00: 00 Dose 2022-0 No Unknown 3-08 00:00: 00 Dose 2022-0 No Unknown 3-08 00:00: 00 Dose 2022-0 No Unknown 3-08 00:00: 00 Dose 2022-0 No Unknown 3-08 00:00: 00 Dose 2022-0 No Unknown 3-08 00:00: 00 Dose 2022-0 No Unknown 3-08 00:00: 00 Dose 2022-0 No Unknown 3-08 00:00: 00 Dose 2022-0 No Unknown 3-08 00:00: 00 Dose 2022-0 No Unknown 3-08 00:00: 00 Dose 2022-0 No Unknown 3-08 00:00: 00 Dose 2022-0 No Unknown 3-08 00:00: 00 Dose 2022-0 No Unknown 3-08 00:00: 00 Dose 2022-0 No Unknown 3-08 00:00: 00 Dose 2022-0 No Unknown 3-08 00:00: 00 Dose 2022-0 No Unknown 3-08 00:00: 00 Dose 2022-0 No Unknown 3-08 00:00: 00 Dose 2022-0 No Unknown 3-08 00:00: 00 Dose 2022-0 No Unknown 3-08 00:00: 00 Dose 2022-0 No Unknown 3-08 00:00: 00 Dose 2022-0 No Unknown 3-08 00:00: 00 Dose 2022-0 No Unknown 3-08 00:00: 00 Dose 2022-0 No Unknown 3-08 00:00: 00 Dose 2022-0 No Unknown 3-08 00:00: 00 Dose 2022-0 No Unknown 3-08 00:00: 00 Dose 2022-0 No Unknown 3-08 00:00: 00 Dose 2022-0 No Unknown 3-08 00:00: 00 Dose 2022-0 No Unknown 3-08 00:00: 00 Dose 2022-0 No Unknown 3-08 00:00: 00 Dose 2022-0 No Unknown 3-08 00:00: 00 Dose 2022-0 No Unknown 3-08 00:00: 00 Dose 2022-0 No Unknown 3-08 00:00: 00 Dose 2022-0 No Unknown 3-08 00:00: 00 Dose 2022-0 No Unknown 3-08 00:00: 00 Dose 2022-0 No Unknown 3-08 00:00: 00 Dose 2022-0 No Unknown 3-08 00:00: 00 Dose 2022-0 No Unknown 3-08 00:00: 00 Dose 2022-0 No Unknown 3-08 00:00: 00 Dose 2022-0 No Unknown 3-08 00:00: 00 Dose 2022-0 No Unknown 3-08 00:00: 00 Dose 2022-0 No Unknown 3-08 00:00: 00 Dose 2022-0 No Unknown 3-08 00:00: 00 Dose 2022-0 No Unknown 3-08 00:00: 00 Dose 2022-0 No Unknown 3-08 00:00: 00 Dose 2022-0 No Unknown 3-08 00:00: 00 Dose 2022-0 No Unknown 3-08 00:00: 00 Dose 2022-0 No Unknown 3-08 00:00: 00 Dose 2022-0 No Unknown 3-08 00:00: 00 Dose 2022-0 No Unknown 3-08 00:00: 00 Dose 2022-0 No Unknown 3-08 00:00: 00 Dose 2022-0 No Unknown 3-08 00:00: 00 Dose 2022-0 No Unknown 3-08 00:00: 00 Dose 2022-0 No Unknown 3-08 00:00: 00 Dose 2022-0 No Unknown 3-08 00:00: 00 Dose 2022-0 No Unknown 3-08 00:00: 00 Dose 2022-0 No Unknown 3-08 00:00: 00 Dose 2022-0 No Unknown 3-08 00:00: 00 Dose 2022-0 No Unknown 3-08 00:00: 00 Dose 2022-0 No Unknown 3-08 00:00: 00 Dose 2022-0 No Unknown 3-08 00:00: 00 Dose 2022-0 No Unknown 3-08 00:00: 00 Dose 2022-0 No Unknown 3-08 00:00: 00 Dose 2022-0 No Unknown 3-08 00:00: 00 Dose 2022-0 No Unknown 3-08 00:00: 00 Dose 2022-0 No Unknown 3-08 00:00: 00 Dose 2022-0 No Unknown 3-08 00:00: 00 Dose 2022-0 No Unknown 3-08 00:00: 00 Dose 2022-0 No Unknown 3-08 00:00: 00 Dose 2022-0 No Unknown 3-08 00:00: 00 Dose 2022-0 No Unknown 3-08 00:00: 00 Dose 2022-0 No Unknown 3-08 00:00: 00 Dose 2022-0 No Unknown 3-08 00:00: 00 Dose 2022-0 No Unknown 3-08 00:00: 00 amLODIPine 2020-06- No 10mg QD Take [address] [facility] (NORVASC) 2- 12-22 tablet (10 Vikas es 10 MG 00:00: 23:59 mg total) Medica l tablet 00 :00 by mouth Center daily. carvediloL 2020-06- No 6.25mg Take [address] (Coreg) 2- 12-22 tablet [facility] 6.25 MG 00:00: 23:59 (6.25 mg Medic al tablet 00 :00 total) by Center mouth 2 (two) times daily with breakfast and dinner. amLODIPine 2020-06- No 10mg QD Take [address] [facility] [address] (NORVASC) 2-22 12-22 tablet (10 Viaks es 10 MG 00:00: 23:59 mg total) Medica l tablet 00 :00 by mouth Center daily. carvediloL 2020-06- No 6.25mg Take [address] (Coreg) 2-22 12-22 tablet [facility] 6.25 MG 00:00: 23:59 (6.25 mg Medic al tablet 00 :00 total) by Center mouth 2 (two) times daily with breakfast and dinner. amLODIPine 2020-06- No 10mg QD Take [address] [facility] [address] (NORVASC) 2-22 12-22 tablet (10 Vikas es 10 MG 00:00: 23:59 mg total) Medica l tablet 00 :00 by mouth Center daily. carvediloL 2020-06- No 6.25mg Take [address] (Coreg) 2-22 12-22 tablet [facility] 6.25 MG 00:00: 23:59 (6.25 mg Medic al tablet 00 :00 total) by Center mouth 2 (two) times daily with breakfast and dinner. amLODIPine 2020-06- No 10mg QD Take [address] [facility] [address] (NORVASC) 2-27 05-22 tablet (10 Vikas es 10 MG 00:00: 23:59 mg total) Medica l tablet 00 :00 by mouth Center daily. carvediloL 2020-06- No 6.25mg Take [address] (Coreg) 2-27 05- tablet [facility] 6.25 MG 00:00: 23:59 (6.25 mg Medic al tablet 00 :00 total) by Center mouth 2 (two) times daily with breakfast and dinner. amLODIPine 2020-06- No 10mg QD Take [address] [facility] [address] (NORVASC) 2-27 05- tablet (10 Vikas es 10 MG 00:00: 23:59 mg total) Medica l tablet 00 :00 by mouth Center daily. carvediloL 2020-06- No 6.25mg Take [address] (Coreg) 2-22 - tablet [facility] 6.25 MG 00:00: 23:59 (6.25 mg Medic al tablet 00 :00 total) by Center mouth 2 (two) times daily with breakfast and dinner. amLODIPine 2020-06- No 10mg QD Take [address] [facility] [address] (NORVASC) 2-22 - tablet (10 Vikas es 10 MG 00:00: 23:59 mg total) Medica l tablet 00 :00 by mouth Center daily. carvediloL 2020-06- No 6.25mg Take [address] (Coreg) 2-22 12-22 tablet [facility] 6.25 MG 00:00: 23:59 (6.25 mg Medic al tablet 00 :00 total) by Center mouth 2 (two) times daily with breakfast and dinner. hydroCHLORO 2020-06 Yes 12.5mg QD Take 12.[address] [facility] [address] thiazide 2-21 mg by [facility]ukes (MICROZIDE) 13:44: mouth Medic al 12.5 mg 11 daily. [place] capsule busPIRone 2020-06 Yes 10mg Q.[id number] Take [address] [facility] (BUSPAR) 10 2-21 [id number] by mouth 3 [facility] MG tablet 13:44: 3D (three) Medic al 11 times Center daily. loratadine 2020-06 Yes 10mg QD Take [address] (CLARITIN) 2-21 by mouth [facility] 10 mg 13:44: daily. Medical tablet 11 [place] hydroCHLORO 2020-06 Yes 12.5mg QD Take 12.[address] [address] thiazide 2-21 mg by [facility] (MICROZIDE) 13:44: mouth Medic al 12.5 mg 11 daily. [place] capsule busPIRone 2020-06 Yes 10mg Q.[id number] Take [address] (BUSPAR) 10 2-21 [id number] by mouth 3 [facility] MG tablet 13:44: 3D (three) Medic al 11 times Center daily. loratadine 2020-06 Yes 10mg QD Take [address] (CLARITIN) 2-21 by mouth [facility] 10 mg 13:44: daily. Medical tablet 11 [place] hydroCHLORO 2020-06 Yes 12.5mg QD Take 12.[address] thiazide 2-21 mg by [facility] (MICROZIDE) 13:44: mouth Medic al 12.5 mg 11 daily. [place] capsule busPIRone 2020-06 Yes 10mg Q.[id number] Take [address] [facility] [address] (BUSPAR) 10 2-21 [id number] by mouth 3 [facility] MG tablet 13:44: 3D (three) Medic al 11 times Center daily. loratadine 2020-06 Yes 10mg QD Take [address] (CLARITIN) 2-21 by mouth [facility] 10 mg 13:44: daily. Medical tablet 11 [place] hydroCHLORO 2020-06 Yes 12.5mg QD Take 12.[address] thiazide 2-21 mg by [facility] (MICROZIDE) 13:44: mouth Medic al 12.5 mg 11 daily. [place] capsule busPIRone 2020-06 Yes 10mg Q.[id number] Take [address] [facility] [address] (BUSPAR) 10 2-21 [id number] by mouth 3 [facility] MG tablet 13:44: 3D (three) Medic al 11 times Center daily. loratadine 2020-06 Yes 10mg QD Take [address] (CLARITIN) 2-21 by mouth [facility]ukes 10 mg 13:44: daily. Medical tablet 11 [place] hydroCHLORO 2020-06 Yes 12.5mg QD Take 12.[address] thiazide 2-21 mg by [facility]ukes (MICROZIDE) 13:44: mouth Medic al 12.5 mg 11 daily. [place] capsule busPIRone 2020-06 Yes 10mg Q.[id number] Take [address] [address] (BUSPAR) 10 2-21 [id number] by mouth 3 [facility] MG tablet 13:44: 3D (three) Medic al 11 times Center daily. loratadine 2020-06 Yes 10mg QD Take [address] (CLARITIN) 2-21 by mouth [facility] 10 mg 13:44: daily. Medical tablet 11 [place] hydroCHLORO 2020-06 Yes 12.5mg QD Take 12.[address] thiazide 2-21 mg by [facility]ukes (MICROZIDE) 13:44: mouth Medic al 12.5 mg 11 daily. [place] capsule busPIRone 2020-06 Yes 10mg Q.[id number] Take [address] (BUSPAR) 10 2-21 [id number] by mouth 3 [facility] MG tablet 13:44: 3D (three) Medic al 11 times [place] daily. loratadine 2020-06 Yes 10mg QD Take [address] (CLARITIN) 2-21 by mouth [facility] 10 mg 13:44: daily. Medical tablet 11 [place] hydroCHLORO 2020-06 Yes 12.5mg 12.5 mg, Univers thiazide 2-08 Oral, ity of (ESIDRIX) 15:00: DAILY, [place] capsule 00 First dose Medica l 12.5 mg on Tue Branch 05/13/21 at 0900, Until Discontinu ed, Routine lisinopriL 2020-06 Yes 30mg 30 mg, Unive rs (PRINIVIL,Z 2-08 Oral, ity of ESTRIL) 15:00: DAILY, [place] tablet 30 00 First dose Medi tessy mg on Tue Branch 05/13/21 at 0900, Until Discontinu ed, Routine thiamine 2020-06 No 100mg 100 mg, Univ ers (VITAMIN 2-08 12-08 Oral, ity of B1) tablet 15:00: 14:39 DAILY, [place] 100 mg 00 :16 First dose Medical on [facility] 05/13/21 at 0900, Until Discontinu ed, Routine loratadine 2020-06 Yes 10mg Take 10 mg U nivers 10 mg 2-08 by mouth ity of tablet 13:22: daily. [address] loratadine 2020-06 Yes 10mg Take 10 mg U nivers 10 mg 2-08 by mouth ity of tablet 13:22: daily. [address] loratadine 2020-06 Yes 10mg Take 10 mg U nivers 10 mg 2-08 by mouth ity of tablet 13:22: daily. [address] loratadine 2020-06 Yes 10mg Take 10 mg U nivers 10 mg 2-08 by mouth ity of tablet 13:22: daily. [address] loratadine 2020-06 Yes 10mg Take 10 mg U nivers 10 mg 2-08 by mouth ity of tablet 13:22: daily. [address] loratadine 2020-06 Yes 10mg Take 10 mg U nivers 10 mg 2-08 by mouth ity of tablet 13:22: daily. [address] loratadine 2020-06 Yes 10mg Take 10 mg U nivers 10 mg 2-08 by mouth ity of tablet 13:22: daily. [address] loratadine 2020-06 Yes 10mg Take 10 mg U nivers 10 mg 2-08 by mouth ity of tablet 13:22: daily. [address] loratadine 2020-06 Yes 10mg Take 10 mg U nivers 10 mg 2-08 by mouth ity of tablet 13:22: daily. [address] loratadine 2020-06 Yes 10mg Take 10 mg U nivers 10 mg 2-08 by mouth ity of tablet 13:22: daily. [address] loratadine 2020-06 Yes 10mg Take 10 mg U nivers 10 mg 2-08 by mouth ity of tablet 13:22: daily. [address] loratadine 2020-06 Yes 10mg Take 10 mg U nivers 10 mg 2-08 by mouth ity of tablet 13:22: daily. [address] magnesium 20202020- No 4g 4 g, IV Univ ers sulfate in 07-14 Piggyback, it y of water 4 13:08: 13:47 ONCE, 1 [place] gram/50 mL 00 :00 dose, On Medic al (8 %) IV Wed Branch Piggyback 4 05/13/21 at g 0715, Routine lisinopril 2020-06- No 30mg Take 30 mg Univers 30 mg 07-14 by mouth ity of tablet 10:15: 00:00 daily. [place] 56 :00 Medical Branch ibuprofen 2020-06- No 100mg Take 100 Un chalino (ADVIL) 100 07-14 mg by ity of mg tablet 10:15: 00:00 mouth [place] 56 :00 every 4 Medical (four) Branch hours as needed for Fever. acetaminoph 2020-06- No [id number] 650mg Take 2 Univers en 325 mg 07-14 tablets by ity of tablet 00:00: 05:59 mouth [place] 00 :00 every 6 Medical (six) Branch hours as needed for Pain (scale 1-3), Pain (scale 4-6) or Temp > 38.5 C. acetaminoph 2020-06- No [id number] 650mg Take 2 Univers en 325 mg 07-14 tablets by ity of tablet 00:00: 05:59 mouth [place] 00 :00 every 6 Medical (six) Branch hours as needed for Pain (scale 1-3), Pain (scale 4-6) or Temp > 38.5 C. acetaminoph 2020-06- No [id number] 650mg Take 2 Univers en 325 mg 07-14 tablets by ity of tablet 00:00: 05:59 mouth [place] 00 :00 every 6 Medical (six) Branch hours as needed for Pain (scale 1-3), Pain (scale 4-6) or Temp > 38.5 C. acetaminoph 2020-06- No [id number] 650mg Take 2 Univers en 325 mg 07-14 tablets by ity of tablet 00:00: 05:59 mouth [place] 00 :00 every 6 Medical (six) Branch hours as needed for Pain (scale 1-3), Pain (scale 4-6) or Temp > 38.5 C. acetaminoph 2020-06- No [id number] 650mg Take 2 Univers en 325 mg 07-14 tablets by ity of tablet 00:00: 05:59 mouth [place] 00 :00 every 6 Medical (six) Branch hours as needed for Pain (scale 1-3), Pain (scale 4-6) or Temp > 38.5 C. acetaminoph 2020-06- No [id number] 650mg Take 2 Univers en 325 mg 07-14 tablets by ity of tablet 00:00: 05:59 mouth [place] 00 :00 every 6 Medical (six) Branch hours as needed for Pain (scale 1-3), Pain (scale 4-6) or Temp > 38.5 C. acetaminoph 2020-06- No [id number] 650mg Take 2 Univers en 325 mg 07-14 tablets by ity of tablet 00:00: 05:59 mouth [place] 00 :00 every 6 Medical (six) Branch hours as needed for Pain (scale 1-3), Pain (scale 4-6) or Temp > 38.5 C. acetaminoph 2020-06- No [id number] 650mg Take 2 Univers en 325 mg 07-14 tablets by ity of tablet 00:00: 05:59 mouth [place] 00 :00 every 6 Medical (six) Branch hours as needed for Pain (scale 1-3), Pain (scale 4-6) or Temp > 38.5 C. acetaminoph 2020-06- No [id number] 650mg Take 2 Univers en 325 mg 07-14 tablets by ity of tablet 00:00: 05:59 mouth [place] 00 :00 every 6 Medical (six) Branch hours as needed for Pain (scale 1-3), Pain (scale 4-6) or Temp > 38.5 C. acetaminoph 2020-06- No [id number] 650mg Take 2 Univers en 325 mg 07-14 tablets by ity of tablet 00:00: 05:59 mouth [place] 00 :00 every 6 Medical (six) Branch hours as needed for Pain (scale 1-3), Pain (scale 4-6) or Temp > 38.5 C. carvediloL 2020-06 Yes 6.25mg 6.25 mg, U nivleonard (COREG) 2-07 Oral, BID ity of tablet 6.25 23:00: MEALS, [place] mg 00 First dose Medical on Tue05/12/21 at 1700, Until Discontinu ed, Routine thiamine 2020-06 Yes IV Univers (VITAMIN 2 Infusion, ity of B1) 100 mg, 15:00: at 42 [place] foLIC acid 00 mL/hr, Medical (FOLATE) 1 DAILY, Branch mg in D5W First dose 0.45% NaCl (after (1/2NS) IV last Solution reorder) on Tue05/12/21 at 0900, Until Discontinu ed, 1,000 mL thiamine 2020-06- No IV Univers (VITAMIN -05-12 Infusion, ity o f B1) 100 mg, 15:00: 17:12 at 42 [place] foLIC acid 00 :06 mL/hr, Medical (FOLATE) 1 DAILY, Branch mg in D5W First dose 0.45% NaCl (after (1/2NS) IV last Solution reorder) on Tue05/12/21 at 0900, Until Discontinu ed, 1,000 mL magnesium 2020-06- No 2g 2 g, IV Univ ers sulfate in 07-12 Piggyback, it y of water 2 16:30: 17:24 ONCE, 1 [place] gram/50 mL 00 :00 dose, On Medic al (4 %) Tue infusion 2 05/11/21 at g 1030, Routine thiamine 2020-06- No IV Univers (VITAMIN 2-05-11 Infusion, ity o f B1) 100 mg, 15:00: 16:01 at 100 [place] foLIC acid 00 :03 mL/hr, Medical (FOLATE) 1 DAILY, Branch mg in D5W First dose 0.45% NaCl (after (1/2NS) IV last Solution modificati on) on Tue05/11/21 at 0900, Until Discontinu ed, 1,000 mL iodixanoL 2020-06 Yes PRN, Univers (VISIPAQUE - Starting ity o f 270-150 mL) 01:00: [place] injection 00 05/10/21 at [facility] tessy 1900, Branch Until Discontinu ed, Routine, Intra-op lidocaine 2020-06 Yes PRN, Univers 1% (PF) 2-06 Starting ity of (XYLOCAINE) 00:54: [place] 00 05/10/21 at [facility] 1854, Branch Until Discontinu ed, Routine, Intra-op heparin 2020-06 Yes PRN, [facility] 10,000 2-05 Starting ity of units in [place] 23:24: [place] 1000 mL for 00 05/10/21 [facility], Branch Intra-op thiamine 2020-06- No IV [facility] (VITAMIN 2-05 05-11 Infusion, ity o f B1) 100 mg, 15:00: 12:29 [place] foLIC acid 00 :55 mL/hr, Medical (FOLATE) 1 DAILY, Branch mg in D5W First dose 0.45% NaCl on Sun (1/2NS) IV 05/10/21 at Solution 0900, Until Discontinu ed, 1,000 mL HYDROcodone 2020-06 Yes 1{tbl} 1 tablet, [facility] -acetaminop 2-05 Oral, ity of hen (NORCO 14:30: Q4HPRN[place] 5-325 mg 00 Starting Medi tessy tablet 1 on [place] Branch tablet 05/10/21 at 0830, Until Discontinu ed, Routine, Pain (scale 4-6), Pain (scale 7-10) HYDROcodone 2020-06 Yes 1{tbl} 1 tablet, [facility] -acetaminop 2-05 Oral, ity of hen (NORCO 14:30: Q4HPRN[place] 5-325 mg 00 Starting Medi tessy tablet 1 on [place] [facility] tablet 05/10/21 at 0830, Until Discontinu ed, Routine, Pain (scale 4-6), Pain (scale 7-10) atorvastati 2020-06 Yes 40mg 40 mg, Univ ers n (LIPITOR) 2-05 Oral, QHS, it y of tablet 40 03:00: [place] mg 00 on [facility] Medical 05/09/21 at Branch 2100, Until Discontinu ed, Routine atorvastati 2020-06 Yes 40mg 40 mg, Univ ers n (LIPITOR) 2-05 Oral, QHS, it y of tablet 40 03:00: [place] mg 00 on Sat Medical 05/09/21 at Branch 2100, Until Discontinu ed, Routine nicotine 2020-06 Yes 1{patch 1 Patch, Un [facility] (NICODERM) 2-04 } Topical, ity o f 21 mg/24 hr 07:30: Administer [place] patch 1 00 over 24 Medical Patch Hours, Branch Q24H, First dose on 05/09/21 at 0130, Until Discontinu ed, Routine nicotine 2020-06 Yes 1{patch 1 Patch, [facility] [place] (NICODERM) 2-04 } Topical, ity o f 21 mg/24 hr 07:30: Administer [place] patch 1 00 over 24 Medical Patch Hours, Branch Q24H, First dose on 05/09/21 at 0130, Until Discontinu ed, Routine KCL 20 2020-06- No 40meq 40 mEq, Univer s mEq/15 mL 2- 12-04 Oral, Q2H, ity of solution 40 06:00: 07:47 2 doses, [place] mEq 00 :00 First dose Medical on Sat Branch 05/09/21 at 0000, Last dose on 05/09/21 at 0200, Routine pantoprazol 2020-06 Yes 40mg 40 mg, Univ ers e 2-04 Slow IV ity of (PROTONIX) 03:30: Push, [place] injection 00 Q12H, Medical 40 mg First dose Branch on Tue05/08/21 at 2130, Until Discontinu ed pantoprazol 2020-06 Yes 40mg 40 mg, Univ ers e 2-04 Slow IV ity of (PROTONIX) 03:30: Push, [place] injection 00 Q12H, Medical 40 mg First dose Branch on Tue05/08/21 at 2130, Until Discontinu ed HYDROcodone 2020-06- No 1{tbl} 1 tablet, [facility] -acetaminop 2- 12-05 Oral, ity of hen (NORCO 03:16: 14:28 Q6HPRN, [place] 5) 5-325 mg 15 :11 Starting Medi tessy tablet 1 on Tue Branch tablet 05/08/21 at 2116, Until 05/10/21 at 0828, Routine, Pain (scale 4-6), Pain (scale 7-10) acetaminoph 2020-06 Yes 650mg 650 mg, [facility] [place] en 2-04 Oral, ity of (TYLENOL) 02:48: Q6HPRN, [place] tablet 650 06 Starting Medic al mg on Fri Branch 05/08/21 at 2047, Until Discontinu ed, Routine, Pain (scale 1-3) acetaminoph 2020-06 Yes 650mg 650 mg, [facility] [place] en 2-04 Oral, ity of (TYLENOL) 02:48: Q6HPRN, [place] tablet 650 06 Starting Medic al mg on Fri Branch 05/08/21 at 2047, Until Discontinu ed, Routine, Pain (scale 1-3) lisinopril 2020-06 Yes 30mg Take 30 mg U nivers 30 mg 2-03 by mouth ity of tablet 21:15: daily. [address] Branch loratadine 2020-06 Yes 10mg Take 10 mg U nivers 10 mg 2-03 by mouth ity of tablet 21:15: daily. [address] ibuprofen 2020-06 Yes 100mg Take 100 Uni vers (ADVIL) 100 2-03 mg by ity of mg tablet 21:15: mouth [place] [address] every 4 Medical (four) Branch hours as needed for Fever. Advair 2020-06 No 1mcg/do Diskus 250 1-19 se mcg-50 00:00: mcg/dose 00 powder for inhalation sertraline 2020-06 No 1mg 100 mg 1-19 tablet 00:00: 00 lisinopril 2020-06 No 1mg 40 mg 1-19 tablet 00:00: 00 naproxen 2020-06 No 1mg 500 mg 1-19 tablet 00:00: 00 Advair 2020-06 No 1mcg/do Diskus 250 1-19 se mcg-50 00:00: mcg/dose 00 powder for inhalation sertraline 2020-06 No 1mg 100 mg 1-19 tablet 00:00: 00 lisinopril 2020-06 No 1mg 40 mg 1-19 tablet 00:00: 00 naproxen 2020-06 No 1mg 500 mg 1-19 tablet 00:00: 00 Advair 2020-06 No 1mcg/do Diskus 250 1-19 se mcg-50 00:00: mcg/dose 00 powder for inhalation sertraline 2020-06 No 1mg 100 mg 1-19 tablet 00:00: 00 lisinopril 2020-1 No 1mg 40 mg 1-19 tablet 00:00: 00 naproxen 2020-1 No 1mg 500 mg 1-19 tablet 00:00: 00 lisinopril 2020-1 No 1mg 40 mg 1-17 tablet 00:00: 00 lisinopril 2020-1 No 1mg 40 mg 1-17 tablet 00:00: 00 lisinopril 2020-1 No 1mg 40 mg 1-17 tablet 00:00: 00 sertraline 2020-1 No 1mg 100 mg 0-11 tablet 00:00: 00 lisinopril 1 No 1mg 40 mg 0-11 tablet 00:00: 00 sertraline 2020-1 No 1mg 100 mg 0-11 tablet 00:00: 00 lisinopril 2020-1 No 1mg 40 mg 0-11 tablet 00:00: 00 sertraline 2020-1 No 1mg 100 mg 0-11 tablet 00:00: 00 lisinopril 1 No 1mg 40 mg 0-11 tablet 00:00: 00 ProAir HFA 2020-0 No 12mcg/a 90 02-05 ctuatio mcg/actuati 00:00: n on aerosol 00 inhaler Advair 0 No 1mcg/do Diskus 250 - se mcg-50 00:00: mcg/dose 00 powder for inhalation sertraline 2020-0 No 1mg 100 mg - tablet 00:00: 00 Dose 2020-0 No Unknown 02-05 00:00: 00 Advair 2020-0 No 1mcg/do Diskus 250 9- se mcg-50 00:00: mcg/dose 00 powder for inhalation sertraline 2020-0 No 1mg 100 mg - tablet 00:00: 00 Dose 2020-0 No Unknown 02-05 00:00: 00 Advair 2020-0 No 1mcg/do Diskus 250 9-02 se mcg-50 00:00: mcg/dose 00 powder for inhalation sertraline 2020-0 No 1mg 100 mg 9- tablet 00:00: 00 atorvastati 2020-0 Yes 40mg QD Take [address] [facility] (LIPITOR) 7- tablet (40 Dipika kes 40 MG 00:00: mg total) Medical tablet 00 by mouth Center nightly. carvediloL 2021-0 Yes 12.5mg Q.5D Take [address] [facility] (COREG) 7-02 tablet [facility] 12[facility] 00:00: (12.5 mg Medica l tablet 00 total) by Center mouth 2 (two) times daily. clopidogreL 2021-0 Yes 75mg QD Take [address] [facility] (PLAVIX) 75 7-02 tablet (75 Dipika kes mg tablet 00:00: mg total) Med ical 00 by mouth Center daily. lisinopriL 2021-0 Yes 40mg QD Take [facility] (PRIN[facility] 7-02 tablet (40 Dipika kes ESTRIL) 40 00:00: mg total) Me dical MG tablet 00 by mouth Center daily. atorvastati 2021-0 Yes 40mg QD Take [address] [facility] (LIPITOR) 7-02 tablet (40 Dipika kes 40 MG 00:00: mg total) Medical tablet 00 by mouth Center nightly. carvediloL 2021-0 Yes 12.5mg Q.5D Take [address] [facility] (COREG) 7-02 tablet [facility] 12[facility]5 MG 00:00: (12.5 mg Medica l tablet 00 total) by Center mouth 2 (two) times daily. clopidogreL 2021-0 Yes 75mg QD Take [address] [facility] (PLAVIX) 75 7-02 tablet (75 Dipika kes mg tablet 00:00: mg total) Med ical 00 by mouth Center daily. lisinopriL 2021-0 Yes 40mg QD Take 1 [facility] (PRIN[facility]IL,Z 7-02 tablet (40 Dipika kes ESTRIL) 40 00:00: mg total) Me dical MG tablet 00 by mouth Center daily. atorvastati 2021-0 Yes 40mg QD Take [address] [facility] (LIPITOR) 7-02 tablet (40 Dipika kes 40 MG 00:00: mg total) Medical tablet 00 by mouth Center nightly. clopidogreL 2021-0 Yes 75mg QD Take [address] [facility] (PLAVIX) 75 7-02 tablet (75 Dipika kes mg tablet 00:00: mg total) Med ical 00 by mouth Center daily. lisinopriL 2021-0 Yes 40mg QD Take [facility] (PRIN[facility],Z 7-02 tablet (40 Dipika kes ESTRIL) 40 00:00: mg total) Me dical MG tablet 00 by mouth Center daily. atorvastati 2021-0 Yes 40mg QD Take [address] [facility] (LIPITOR) 7-02 tablet (40 Dipika kes 40 MG 00:00: mg total) Medical tablet 00 by mouth Center nightly. clopidogreL 2021-0 Yes 75mg QD Take [address] [facility] (PLAVIX) 75 7-02 tablet (75 Dipika kes mg tablet 00:00: mg total) Med ical 00 by mouth Center daily. lisinopriL 2021-0 Yes 40mg QD Take [facility] (PRIN[facility]IL,Z 7-02 tablet (40 Dipika kes ESTRIL) 40 00:00: mg total) Me dical MG tablet 00 by mouth Center daily. atorvastati 2021-0 Yes 40mg QD Take [address] [facility] (LIPITOR) 7-02 tablet (40 Dipika kes 40 MG 00:00: mg total) Medical tablet 00 by mouth Center nightly. clopidogreL 2021-0 Yes 75mg QD Take [address] [facility] (PLAVIX) 75 7-02 tablet (75 Dipika kes mg tablet 00:00: mg total) Med ical 00 by mouth Center daily. lisinopriL 2021-0 Yes 40mg QD Take [facility] (PRIN[facility]IL,Z 7-02 tablet (40 Dipika kes ESTRIL) 40 00:00: mg total) Me dical MG tablet 00 by mouth Center daily. atorvastati 2021-0 Yes 40mg QD Take [address] [facility] (LIPITOR) 7-02 tablet (40 Dipika kes 40 MG 00:00: mg total) Medical tablet 00 by mouth Center nightly. clopidogreL 2021-0 Yes 75mg QD Take [address] [facility] (PLAVIX) 75 7-02 tablet (75 Dipika kes mg tablet 00:00: mg total) Med ical 00 by mouth Center daily. lisinopriL 2021-0 Yes 40mg QD Take [facility] (PRINIVIL,Z 7-02 tablet (40 Dipika kes ESTRIL) 40 00:00: mg total) Me dical MG tablet 00 by mouth Center daily. atorvastati 2021-0 Yes 40mg QD Take [address] [facility] (LIPITOR) 7-02 tablet (40 Dipika kes 40 MG 00:00: mg total) Medical tablet 00 by mouth Center nightly. clopidogreL 2021-0 Yes 75mg QD Take [address] [facility] (PLAVIX) 75 7-02 tablet (75 Dipika kes mg tablet 00:00: mg total) Med ical 00 by mouth Center daily. lisinopriL 2021-0 Yes 40mg QD Take [facility] (PRINIVIL,Z 7-02 tablet (40 Dipika kes ESTRIL) 40 00:00: mg total) Me dical MG tablet 00 by mouth Center daily. atorvastati 2021-0 Yes 40mg QD Take [address] [facility] (LIPITOR) 7-02 tablet (40 Dipika kes 40 MG 00:00: mg total) Medical tablet 00 by mouth Center nightly. clopidogreL 2021-0 Yes 75mg QD Take [address] [facility] (PLAVIX) 75 7-02 tablet (75 Dipika kes mg tablet 00:00: mg total) Med ical 00 by mouth Center daily. lisinopriL 2021-0 Yes 40mg QD Take [facility] (PRINIVIL,Z 7-02 tablet (40 Dipika kes ESTRIL) 40 00:00: mg total) Me dical MG tablet 00 by mouth Center daily. carvediloL 1-0 Yes 12.5mg Take 12.5 Univers 12.5 mg 7-02 mg by ity of tablet 00:00: mouth. [address] atorvastati 1-0 Yes 40mg Take 40 mg Univers n 40 mg 7-02 by mouth. ity of tablet 00:00: [address] lisinopriL 1-0 Yes 40mg Take 40 mg U nivers 40 mg 7-02 by mouth. ity of tablet 00:00: [address] carvediloL 1-0 Yes 12.5mg Take 12.5 Univers 12.5 mg 7-02 mg by ity of tablet 00:00: mouth. [address] atorvastati 1-0 Yes 40mg Take 40 mg Univers n 40 mg 7-02 by mouth. ity of tablet 00:00: [address] lisinopriL 2021-0 Yes 40mg Take 40 mg U nivers 40 mg 7-02 by mouth. ity of tablet 00:00: [address] carvediloL 2021-0 Yes 12.5mg Take 12.5 Univers 12.5 mg 7-02 mg by ity of tablet 00:00: mouth. [place] [facility] Branch atorvastati 2020-0 Yes 40mg Take 40 mg Univers n 40 mg 7-02 by mouth. ity of tablet 00:00: [place] [facility] Branch lisinopriL 2020-0 Yes 40mg Take 40 mg U nivers 40 mg 7-02 by mouth. ity of tablet 00:00: [place] [facility] Branch carvediloL 2020-0 Yes 12.5mg Take 12.5 Univers 12.5 mg 7-02 mg by ity of tablet 00:00: mouth. [address] atorvastati 2020-0 Yes 40mg Take 40 mg Univers n 40 mg 7-02 by mouth. ity of tablet 00:00: [place] [facility] Branch lisinopriL 0 Yes 40mg Take 40 mg U nivers 40 mg 7-02 by mouth. ity of tablet 00:00: [address] Branch carvediloL 2020-0 Yes 12.5mg Take 12.5 Univers 12.5 mg 7-02 mg by ity of tablet 00:00: mouth. [address] atorvastati 0 Yes 40mg Take 40 mg Univers n 40 mg 7-02 by mouth. ity of tablet 00:00: [address] lisinopriL 2020-0 Yes 40mg Take 40 mg U nivers 40 mg 7-02 by mouth. ity of tablet 00:00: [address] Branch carvediloL 2020-0 Yes 12.5mg Take 12.5 Univers 12.5 mg 7-02 mg by ity of tablet 00:00: mouth. [address] atorvastati 2020-0 Yes 40mg Take 40 mg Univers n 40 mg 7-02 by mouth. ity of tablet 00:00: [address] Branch lisinopriL 2020-0 Yes 40mg Take 40 mg U nivers 40 mg 7-02 by mouth. ity of tablet 00:00: [address] Branch carvediloL 2020-0 Yes 12.5mg Take 12.5 Univers 12.5 mg 7-02 mg by ity of tablet 00:00: mouth. [address] atorvastati 2020-0 Yes 40mg Take 40 mg Univers n 40 mg 7-02 by mouth. ity of tablet 00:00: [place] [facility] lisinopriL 2020-0 Yes 40mg Take 40 mg U nivers 40 mg 7-02 by mouth. ity of tablet 00:00: Medical Branch carvediloL 2020-0 Yes 12.5mg Take 12.5 Univers 12.5 mg 7-02 mg by ity of tablet 00:00: mouth. [place] [facility] atorvastati 2020-0 Yes 40mg Take 40 mg Univers n 40 mg 7-02 by mouth. ity of tablet 00:00: [place] [facility] lisinopriL 2020-0 Yes 40mg Take 40 mg U nivers 40 mg 7-02 by mouth. ity of tablet 00:00: [place] [facility] carvediloL 2020-0 Yes 12.5mg Take 12.5 Univers 12.5 mg 7-02 mg by ity of tablet 00:00: mouth. [address] atorvastati 2020-0 Yes 40mg Take 40 mg Univers n 40 mg 7-02 by mouth. ity of tablet 00:00: [place] [facility] Branch lisinopriL 2020-0 Yes 40mg Take 40 mg U nivers 40 mg 7-02 by mouth. ity of tablet 00:00: [place] [facility] carvediloL 2020-0 Yes 12.5mg Take 12.5 Univers 12.5 mg 7-02 mg by ity of tablet 00:00: mouth. [address] atorvastati 2020-0 Yes 40mg Take 40 mg Univers n 40 mg 7-02 by mouth. ity of tablet 00:00: [place] [facility] lisinopriL 2020-0 Yes 40mg Take 40 mg U nivers 40 mg 7-02 by mouth. ity of tablet 00:00: [place] [facility] carvediloL 2020-0 Yes 12.5mg Take 12.5 Univers 12.5 mg 7-02 mg by ity of tablet 00:00: mouth. [place] [address] Medical [place] atorvastati 2020-0 Yes 40mg Take 40 mg Univers n 40 mg 7-02 by mouth. ity of tablet 00:00: [place] [address] Medical Branch lisinopriL 2020-0 Yes 40mg Take 40 mg U nivers 40 mg 7-02 by mouth. ity of tablet 00:00: [place] [address] Medical Branch carvediloL 2020-0 Yes 12.5mg Take 12.5 Univers 12.5 mg 7-02 mg by ity of tablet 00:00: mouth. [place] [facility] atorvastati 2020-0 Yes 40mg Take 40 mg Univers n 40 mg 7-02 by mouth. ity of tablet 00:00: [place] [address] Medical Branch lisinopriL 2020-0 Yes 40mg Take 40 mg U nivers 40 mg 7-02 by mouth. ity of tablet 00:00: [place] [facility] clopidogreL 2020-0 Yes 75mg Take 75 mg Univers 75 mg 7-02 by mouth. ity of tablet 00:00: [place] [facility] carvediloL 2020-0 Yes 12.5mg Take 12.5 Univers 12.5 mg 7-02 mg by ity of tablet 00:00: mouth. [place] [address] Medical [place] atorvastati 0 Yes 40mg Take 40 mg Univers n 40 mg 7-02 by mouth. ity of tablet 00:00: [place] [facility] lisinopriL 0 Yes 40mg Take 40 mg U nivers 40 mg 7-02 by mouth. ity of tablet 00:00: [place] [address] Medical Branch carvediloL 2020-0 1- No 12.5mg Q.5D Take [address] (COREG) -05-27 tablet [facility] 12.5 MG 00:00: 00:00 (12.5 mg Medic al tablet 00 :00 total) by Center mouth 2 (two) times daily. clopidogreL 2020-0 2020- No 75mg Take 75 mg Univers 75 mg 7-02 12-08 by mouth. ity of tablet 00:00: 00:00 [place] 00 : Medical Branch lisinopril 2020-0 No 1mg 40 mg 5-04 tablet 00:00: 00 carvedilol 2020-0 No 1mg 25 mg 5-04 tablet 00:00: 00 atorvastati 2020-0 No 1mg n 40 mg 5-04 tablet 00:00: 00 lorazepam 2020-0 No 1mg 0.5 mg 5-04 tablet 00:00: 00 clopidogrel 2020-0 No 1mg 75 mg 5-04 tablet 00:00: 00 pantoprazol 2021-0 No 1mg e 40 mg 5-04 tablet,lucy 00:00: yed release 00 lisinopril 2021-0 No 1mg 40 mg 5-04 tablet 00:00: 00 carvedilol 2021-0 No 1mg 25 mg 5-04 tablet 00:00: 00 atorvastati 2021-0 No 1mg n 40 mg 5-04 tablet 00:00: 00 lorazepam 2021-0 No 1mg 0.5 mg 5-04 tablet 00:00: 00 clopidogrel 2021-0 No 1mg 75 mg 5-04 tablet 00:00: 00 pantoprazol 2021-0 No 1mg e 40 mg 5-04 tablet,lucy 00:00: yed release 00 lisinopril 2021-0 No 1mg 40 mg 5-04 tablet 00:00: 00 carvedilol 2021-0 No 1mg 25 mg 5-04 tablet 00:00: 00 atorvastati 2021-0 No 1mg n 40 mg 5-04 tablet 00:00: 00 lorazepam 2021-0 No 1mg 0.5 mg 5-04 tablet 00:00: 00 clopidogrel 2021-0 No 1mg 75 mg 5-04 tablet 00:00: 00 pantoprazol 2021-0 No 1mg e 40 mg 5-04 tablet,lucy 00:00: yed release 00 aspirin 81 2021-0 Yes 81mg QD [facility] che[facility]able [facility] (81 Dipika kes tablet 00:00: mg total) Medica l 00 by mouth Center daily. pantoprazol 2021-0 Yes 40mg Take [address] [facility] 4-02 tablet (40 [facility] (PROTONIX) 00:00: mg total) Me dical 40 MG 00 by mouth Center tablet every morning before breakfast. aspirin 81 2021-0 Yes 81mg QD Take 1 [facility] chewable 4-02 tablet (81 Dipika kes tablet 00:00: mg total) Medica l 00 by mouth Center daily. pantoprazol 2021-0 Yes 40mg Take [address] [facility] e 4-02 tablet (40 [facility] (PROTONIX) 00:00: mg total) Me dical 40 MG 00 by mouth Center tablet every morning before breakfast. aspirin 81 2021-0 Yes 81mg QD Take 1 [facility] chewable 4-02 tablet (81 Dipika kes tablet 00:00: mg total) Medica l 00 by mouth Center daily. pantoprazol 2021-0 Yes 40mg Take [address] [facility] e 4-02 tablet (40 [facility] (PROTONIX) 00:00: mg total) Me dical 40 MG 00 by mouth Center tablet every morning before breakfast. aspirin 81 2021-0 Yes 81mg QD Take 1 [facility] chewable 4-02 tablet (81 Dipika kes tablet 00:00: mg total) Medica l 00 by mouth Center daily. pantoprazol 2021-0 Yes 40mg Take [address] [facility] e 4-02 tablet (40 [facility] (PROTONIX) 00:00: mg total) Me dical 40 MG 00 by mouth Center tablet every morning before breakfast. aspirin 81 2021-0 Yes 81mg QD Take 1 [facility] chewable 4-02 tablet (81 Dipika kes tablet 00:00: mg total) Medica l 00 by mouth Center daily. pantoprazol 2021-0 Yes 40mg Take [address] [facility] e 4-02 tablet (40 [facility] (PROTONIX) 00:00: mg total) Me dical 40 MG 00 by mouth Center tablet every morning before breakfast. aspirin 81 1-0 Yes 81mg QD Take 1 [facility] chewable 4-02 tablet (81 Dipika kes tablet 00:00: mg total) Medica l 00 by mouth Center daily. pantoprazol 2021-0 Yes 40mg Take [address] [facility] e 4-02 tablet (40 [facility] (PROTONIX) 00:00: mg total) Me dical 40 MG 00 by mouth Center tablet every morning before breakfast. aspirin 81 2021-0 Yes 81mg QD Take [facility] chewable 4-02 tablet (81 Dipika kes tablet 00:00: mg total) Medica l 00 by mouth Center daily. pantoprazol 2021-0 Yes 40mg Take [address] [facility] e 4-02 tablet (40 [facility] (PROTONIX) 00:00: mg total) Me dical 40 MG 00 by mouth Center tablet every morning before breakfast. aspirin 81 2021-0 Yes 81mg QD Take 1 [facility] chewable 4-02 tablet (81 Dipika kes tablet 00:00: mg total) Medica l 00 by mouth Center daily. pantoprazol 2021-0 Yes 40mg Take [address] [facility] e 4-02 tablet (40 [facility] (PROTONIX) 00:00: mg total) Me dical 40 MG 00 by mouth Center tablet every morning before breakfast. aspirin 81 0 Yes 81mg Take 81 mg U nivers mg chewable 09-05 by mouth. ity of tablet 00:00: [place] 00 Medical Branch aspirin 81 2020- No 81mg Take 81 mg Univers mg chewable 09-0508 by mouth. it y of tablet 00:00: 00:00 [place] 00 :00 Medical Branch clopidogreL 2020- No 75mg QD Take [address] [facility] (PLAVIX) 75 09-05- tablet (75 [facility] mg tablet 00:00: 00:00 mg total) Me dical 00 :00 by mouth Center daily. clopidogreL 2020- No 75mg QD Take [address] [facility] (PLAVIX) 75 -07 13- tablet (75 L ukes mg tablet 00:00: 00:00 mg total) Me dical 00 :00 by mouth Center daily. hydrOXYzine 2020- No 25mg Take [address] [facility] (ATARAX) 25 - 04-01 by mouth 3 L ukes MG tablet 10:36: 00:00 (three) Medi tessy 43 :00 times Center daily as needed for Itching. hydrOXYzine 2020- No 25mg Take [address] [facility] (ATARAX) 25 4- 04-01 by mouth 3 L ukes MG tablet 10:36: 00:00 (three) Medi tessy 43 :00 times Center daily as needed for Itching. HYDROcodone Yes 1{tbl} Take [address] [facility] [address] [facility] -acetaminop 4-01 tablet by Vikas smith (NORCO 00:00: mouth Medica l 5-325) 00 every 6 Center 5-325 mg (six) per tablet hours as needed. Max Daily Amount: 4 tablets LORazepam Yes .5mg Take [address] [facility] (ATIVAN) 4-01 tablet [facility] 0.5 MG 00:00: (0.5 mg Medical tablet 00 total) by Center mouth every 8 (eight) hours as needed for Anxiety. Max Daily Amount: 1.5 mg HYDROcodone 2021-0 Yes 1{tbl} Take [address] [facility] [address] -acetaminop 4-01 tablet by Vikas es hen (NORCO 00:00: mouth Medica l 5-325) 00 every 6 Center 5-325 mg (six) per tablet hours as needed. Max Daily Amount: 4 tablets LORazepam 2021-0 Yes .5mg Take [address] [facility] (ATIVAN) 4-01 tablet [facility] 0.5 MG 00:00: (0.5 mg Medical tablet 00 total) by Center mouth every 8 (eight) hours as needed for Anxiety. Max Daily Amount: 1.5 mg HYDROcodone 2021-0 Yes 1{tbl} Take [address] [facility] [address] -acetaminop 4-01 tablet by Vikas es hen (NORCO 00:00: mouth Medica l 5-325) 00 every 6 Center 5-325 mg (six) per tablet hours as needed. Max Daily Amount: 4 tablets LORazepam 2021-0 Yes .5mg Take [address] [facility] (ATIVAN) 4-01 tablet [facility] 0.5 MG 00:00: (0.5 mg Medical tablet 00 total) by Center mouth every 8 (eight) hours as needed for Anxiety. Max Daily Amount: 1.5 mg HYDROcodone 2021-0 Yes 1{tbl} Take [address] [facility] [address] -acetaminop 4-01 tablet by Vikas es hen (NORCO 00:00: mouth Medica l 5-325) 00 every 6 Center 5-325 mg (six) per tablet hours as needed. Max Daily Amount: 4 tablets LORazepam 2021-0 Yes .5mg Take [address] [facility] (ATIVAN) 4-01 tablet [facility] 0.5 MG 00:00: (0.5 mg Medical tablet 00 total) by Center mouth every 8 (eight) hours as needed for Anxiety. Max Daily Amount: 1.5 mg HYDROcodone 2021-0 Yes 1{tbl} Take [address] [facility] [address] -acetaminop 4-01 tablet by Vikas es hen (NORCO 00:00: mouth Medica l 5-325) 00 every 6 Center 5-325 mg (six) per tablet hours as needed. Max Daily Amount: 4 tablets LORazepam 2021-0 Yes .5mg Take [address] [facility] (ATIVAN) 4-01 tablet [facility] 0.5 MG 00:00: (0.5 mg Medical tablet 00 total) by Center mouth every 8 (eight) hours as needed for Anxiety. Max Daily Amount: 1.5 mg HYDROcodone 202-0 Yes 1{tbl} Take [address] [facility] [address] -acetaminop 4-01 tablet by Vikas es hen (NORCO 00:00: mouth Medica l 5-325) 00 every 6 Center 5-325 mg (six) per tablet hours as needed. Max Daily Amount: 4 tablets LORazepam 2020-0 Yes .5mg Take [address] [facility] (ATIVAN) 4-01 tablet [facility] 0.5 MG 00:00: (0.5 mg Medical tablet 00 total) by Center mouth every 8 (eight) hours as needed for Anxiety. Max Daily Amount: 1.5 mg HYDROcodone 2020-0 Yes 1{tbl} Take [address] -acetaminop 4-01 tablet by Vikas es hen (NORCO 00:00: mouth Medica l 5-325) 00 every 6 Center 5-325 mg (six) per tablet hours as needed. Max Daily Amount: 4 tablets LORazepam 2020-0 Yes .5mg Take [address] [facility] (ATIVAN) 4- tablet [facility] 0.5 MG 00:00: (0.5 mg Medical tablet 00 total) by Center mouth every 8 (eight) hours as needed for Anxiety. Max Daily Amount: 1.5 mg HYDROcodone 2020-0 Yes 1{tbl} Take [address] [facility] [address] -acetaminop 4-01 tablet by Vikas es hen (NORCO 00:00: mouth Medica l 5-325) 00 every 6 Center 5-325 mg (six) per tablet hours as needed. Max Daily Amount: 4 tablets LORazepam 2020-0 Yes .5mg Take [address] [facility] (ATIVAN) 4-01 tablet [facility] 0.5 MG 00:00: (0.5 mg Medical tablet 00 total) by Center mouth every 8 (eight) hours as needed for Anxiety. Max Daily Amount: 1.5 mg atorvastati 2020-2020- No 40mg QD Take [address] [facility] (LIPITOR) 09-04 tablet (40 L u[facility] 40 MG 00:00: 00:00 mg total) Medica l tablet 00 :00 by mouth Center nightly. carvediloL 2020-0 2020- No 25mg Q.5D Take [address] [facility] (COREG) 25 09-04 tablet (25 Dipika kes MG tablet 00:00: 00:00 mg total) Me dical 00 :00 by mouth 2 Center (two) times daily. lisinopriL 2020- No 40mg Q.5D Take [address] [facility] (PRINIVIL,Z 09-04 tablet (40 L ukes ESTRIL) 40 00:00: 00:00 mg total) M edical MG tablet 00 :00 by mouth 2 Cent er (two) times daily. atorvastati 2020- No 40mg QD Take [address] [facility] (LIPITOR) 09-04 tablet (40 L ukes 40 MG 00:00: 00:00 mg total) Medica l tablet 00 :00 by mouth Center nightly. carvediloL 2020- No 25mg Q.5D Take [address] [facility] (COREG) 25 09-04 tablet (25 Dipika kes MG tablet 00:00: 00:00 mg total) Me dical 00 :00 by mouth 2 Center (two) times daily. lisinopriL 2020- No 40mg Q.5D Take [address] [facility] (PRINIVIL,Z 09-04 tablet (40 L ukes ESTRIL) 40 00:00: 00:00 mg total) M edical MG tablet 00 :00 by mouth 2 Cent er (two) times daily. omeprazole 2020- No [facility] (PriLOSEC) 08-28- [facility] 40 MG 00:00: 00:00 Medical capsule 00 :00 [place] omeprazole 2020- No [facility] (PriLOSEC) 08-28- [facility] 40 MG 00:00: 00:00 Medical capsule 00 :00 [place] Ciprodex 2020-0 No 4% 0.3 %-0.1 % 3 ear 00:00: drops,suspe 00 nsion Ciprodex 2020-0 No 4% 0.3 %-0.1 % 08-12 ear 00:00: drops,suspe 00 nsion Ciprodex 2020-0 No 4% 0.3 %-0.1 % 08-12 ear 00:00: drops,suspe 00 nsion Ciprodex 2020- No [facility] 0.3-0.1 % 08-12 [facility] o[facility] 00:00: 00:00 Medical suspension 00 :00 [place] Ciprodex 2020- No [facility] 0.3-0.1 % 08-12 [facility] o[facility] 00:[facility]: [facility]:00 [facility] suspension 00 :00 [place] sertraline 2020-1 No 1mg 100 mg 2-22 tablet 00:00: 00 Singulair 2020-1 No 1mg 10 mg 2-22 tablet 00:00: 00 loratadine 2020-1 No 1mg 10 mg 2-22 tablet 00:00: 00 metoprolol 2020-1 No 1mg succinate 2-22 ER 50 mg 00:00: tablet,exte 00 nded release 24 hr omeprazole 2019-1 No 1mg 20 mg 2-22 tablet,lucy 00:00: yed release 00 sertraline 2020-1 No 1mg 100 mg 2-22 tablet 00:00: 00 Singulair 2020-1 No 1mg 10 mg 2-22 tablet 00:00: 00 loratadine 2020-1 No 1mg 10 mg 2-22 tablet 00:00: 00 metoprolol 2020-1 No 1mg succinate 2-22 ER 50 mg 00:00: tablet,exte 00 nded release 24 hr omeprazole 2019-1 No 1mg 20 mg 2-22 tablet,lucy 00:00: yed release 00 sertraline 2020-1 No 1mg 100 mg 2-22 tablet 00:00: 00 Singulair 2020-1 No 1mg 10 mg 2-22 tablet 00:00: 00 loratadine 2020-1 No 1mg 10 mg 2-22 tablet 00:00: 00 metoprolol 2020-1 No 1mg succinate 2-22 ER 50 mg 00:00: tablet,exte 00 nded release 24 hr omeprazole 2019-1 No 1mg 20 mg 2-22 tablet,lucy 00:00: yed release 00 sertraline 2020-1 No 1mg 100 mg 0-27 tablet 00:00: 00 sertraline 2020-1 No 1mg 100 mg 0-27 tablet 00:00: 00 sertraline 2020-1 No 1mg 100 mg 0-27 tablet 00:00: 00 Advair 2020-1 No 1mcg/do Diskus 250 0-22 se mcg-50 00:00: mcg/dose 00 powder for inhalation mupirocin 2 2019-06 No 1% % topical 0-22 ointment 00:00: 00 metoprolol 2019-06 No 1mg succinate 0-22 ER 50 mg 00:00: tablet,exte 00 nded release 24 hr Senna with 2019-06 No 1mg Docusate 0-22 Sodium 8.6 00:00: mg-50 mg 00 tablet omeprazole 2019-06 No 1mg 20 mg 0-22 tablet,lucy 00:00: yed release 00 Advair 2019-06 No 1mcg/do Diskus 250 0-22 se mcg-50 00:00: mcg/dose 00 powder for inhalation mupirocin 2 2019-06 No 1% % topical 0-22 ointment 00:00: 00 metoprolol 2019-06 No 1mg succinate 0-22 ER 50 mg 00:00: tablet,exte 00 nded release 24 hr [place] with 2019-06 No 1mg Docusate 0-22 Sodium 8.6 00:00: mg-50 mg 00 tablet omeprazole 2019-06 No 1mg 20 mg 0-22 tablet,lucy 00:00: yed release 00 Advair 2019-06 No 1mcg/do Diskus 250 0-22 se mcg-50 00:00: mcg/dose 00 powder for inhalation mupirocin 2 2019-06 No 1% % topical 0-22 ointment 00:00: 00 metoprolol 2019-06 No 1mg succinate 0-22 ER 50 mg 00:00: tablet,exte 00 nded release 24 hr [place] with 2019-06 No 1mg Docusate 0-22 Sodium 8.6 00:00: mg-50 mg 00 tablet omeprazole 2019-06 No 1mg 20 mg 0-22 tablet,lucy 00:00: yed release 00 sertraline 2019-06 No 1mg 100 mg 0-13 tablet 00:00: 00 buspirone 5 2019-06 No 1mg mg tablet 0-13 00:00: 00 sertraline 2019-06 No 1mg 100 mg 0-13 tablet 00:00: 00 buspirone 5 2019-06 No 1mg mg tablet 0-13 00:00: 00 sertraline 2020-1 No 1mg 100 mg 0-13 tablet 00:00: 00 buspirone 5 2020-1 No 1mg mg tablet 0-13 00:00: 00 hydroxyzine 2020-0 No 12mg HCl 25 mg 9-25 tablet 00:00: 00 hydroxyzine 2020-0 No 12mg HCl 25 mg 9-25 tablet 00:00: 00 hydroxyzine 2020-0 No 12mg HCl 25 mg 9-25 tablet 00:00: 00 ibuprofen 2020-0 No 1mg 600 mg 9-09 tablet 00:00: 00 ibuprofen 2020-0 No 1mg 600 mg 9-09 tablet 00:00: 00 ibuprofen 2020-0 No 1mg 600 mg 9-09 tablet 00:00: 00 Dose 2020-0 No Unknown 9 00:00: 00 metoprolol 2020-0 No 1mg succinate 9-03 ER 50 mg 00:00: tablet,exte 00 nded release 24 hr Senna with 2020-0 No 1mg Docusate 9-03 Sodium 8.6 00:00: mg-50 mg 00 tablet hydroxyzine 2020-0 No 12mg HCl 25 mg 9- tablet 00:00: 00 ProAir HFA 2020-0 No 12mcg/a 90 9- ctuatio mcg/actuati 00:00: n on aerosol 00 inhaler Dose 2020-0 No Unknown 9 00:00: 00 metoprolol 2020-0 No 1mg succinate 9-03 ER 50 mg 00:00: tablet,exte 00 nded release 24 hr Senna with 2020-0 No 1mg Docusate 9-03 Sodium 8.6 00:00: mg-50 mg 00 tablet hydroxyzine 2020-0 No 12mg HCl 25 mg 9-03 tablet 00:00: 00 metoprolol 2020-0 No 1mg succinate 9-03 ER 50 mg 00:00: tablet,exte 00 nded release 24 hr [place]na with 2020-0 No 1mg Docusate 9-03 Sodium 8.6 00:00: mg-50 mg 00 tablet hydroxyzine 2020-0 No 12mg HCl 25 mg 9-03 tablet 00:00: 00 hydroxyzine 2020-0 No 12mg HCl 25 mg 6-08 tablet 00:00: 00 hydroxyzine 2020-0 No 12mg HCl 25 mg 6-08 tablet 00:00: 00 hydroxyzine 2020-0 No 12mg HCl 25 mg 6-08 tablet 00:00: 00 lisinopril 2020-0 No 2mg 10 mg 6-03 tablet 00:00: 00 lisinopril 2020-0 No 2mg 10 mg 6-03 tablet 00:00: 00 lisinopril 2020-0 No 2mg 10 mg 6-03 tablet 00:00: 00 lisinopril 2020-0 No 2mg 10 mg 6-02 tablet 00:00: 00 lisinopril 2020-0 No 2mg 10 mg 6-02 tablet 00:00: 00 lisinopril 2020-0 No 2mg 10 mg 6-02 tablet 00:00: 00 ibuprofen 2020-0 No 1mg 600 mg 5-10 tablet 00:00: 00 ibuprofen 2020-0 No 1mg 600 mg 5-10 tablet 00:00: 00 ibuprofen 2020-0 No 1mg 600 mg 5-10 tablet 00:00: 00 hydroxyzine 2020-0 No 12mg HCl 25 mg 4-23 tablet 00:00: 00 hydroxyzine 2020-0 No 12mg HCl 25 mg 4-23 tablet 00:00: 00 hydroxyzine 2020-0 No 12mg HCl 25 mg 4-23 tablet 00:00: 00 hydroxyzine 2020-0 No 12mg HCl 25 mg 4-13 tablet 00:00: 00 Tessalon 2020-0 No 1mg Perles 100 4-13 mg capsule 00:00: 00 Tessalon 2020-0 No 1mg Perles 100 4-13 mg capsule 00:00: 00 hydroxyzine 2020-0 No 12mg HCl 25 mg 4-13 tablet 00:00: 00 Tessalon 2020-0 No 1mg Perles 100 4-13 mg capsule 00:00: 00 Tessalon 2020-0 No 1mg Perles 100 4-13 mg capsule 00:00: 00 hydroxyzine 2020-0 No 12mg HCl 25 mg 4-13 tablet 00:00: 00 Tessalon 2020-0 No 1mg Perles 100 4-13 mg capsule 00:00: 00 Tessalon 2020-0 No 1mg Perles 100 4-13 mg capsule 00:00: 00 sertraline 2020-0 No 2mg 100 mg 4-01 tablet 00:00: 00 trazodone 2020-0 No 1mg 50 mg 4-01 tablet 00:00: 00 sertraline 2020-0 No 2mg 100 mg 4-01 tablet 00:00: 00 trazodone 2020-0 No 1mg 50 mg 4-01 tablet 00:00: 00 sertraline 2020-0 No 2mg 100 mg 4-01 tablet 00:00: 00 trazodone 2020-0 No 1mg 50 mg 4-01 tablet 00:00: 00 sertraline 2020-0 No 2mg 100 mg 3-26 tablet 00:00: 00 lisinopril 2020-0 No 1mg 10 mg 3-26 tablet 00:00: 00 lisinopril 2020-0 No 2mg 10 mg 3-26 tablet 00:00: 00 ibuprofen 2020-0 No 1mg 600 mg 3-26 tablet 00:00: 00 sertraline 2020-0 No 2mg 100 mg 3-26 tablet 00:00: 00 lisinopril 2020-0 No 1mg 10 mg 3-26 tablet 00:00: 00 lisinopril 2020-0 No 2mg 10 mg 3-26 tablet 00:00: 00 ibuprofen 2020-0 No 1mg 600 mg 3-26 tablet 00:00: 00 sertraline 2020-0 No 2mg 100 mg 3-26 tablet 00:00: 00 lisinopril 2020-0 No 1mg 10 mg 3-26 tablet 00:00: 00 lisinopril 2020-0 No 2mg 10 mg 3-26 tablet 00:00: 00 ibuprofen 2020-0 No 1mg 600 mg 3-26 tablet 00:00: 00 Ciprodex 2019-1 No 4% 0.3 %-0.1 % 2-27 ear 00:00: drops,suspe 00 nsion Ciprodex 2019-1 No 4% 0.3 %-0.1 % 2-27 ear 00:00: drops,suspe 00 nsion ibuprofen 2019-1 No 1mg 600 mg 2-27 tablet 00:00: 00 Ciprodex 2019-1 No 4% 0.3 %-0.1 % 2-27 ear 00:00: drops,suspe 00 nsion Ciprodex 2019-1 No 4% 0.3 %-0.1 % 2-27 ear 00:00: drops,suspe 00 nsion ibuprofen 2019-1 No 1mg 600 mg 2-27 tablet 00:00: 00 Ciprodex 2019-1 No 4% 0.3 %-0.1 % 2-27 ear 00:00: drops,[place] 00 nsion Ciprodex 2019-1 No 4% 0.3 %-0.1 % 2-27 ear 00:00: drops,suspe 00 nsion ibuprofen 2018-1 No 1mg 600 mg 2-27 tablet 00:00: 00 lisinopril 2019-1 No 1mg 10 mg 1-27 tablet 00:00: 00 sertraline 2018-1 No 2mg 100 mg 1-27 tablet 00:00: 00 trazodone 2018-1 No 1mg 50 mg 1-27 tablet 00:00: 00 lisinopril 2019-1 No 1mg 10 mg 1-27 tablet 00:00: 00 sertraline 2018-1 No 2mg 100 mg 1-27 tablet 00:00: 00 trazodone 2018-1 No 1mg 50 mg 1-27 tablet 00:00: 00 lisinopril 2018-1 No 1mg 10 mg 1-27 tablet 00:00: 00 sertraline 2018-1 No 2mg 100 mg 1-27 tablet 00:00: 00 trazodone 2018-1 No 1mg 50 mg 1-27 tablet 00:00: 00 buspirone 5 2018-1 No 1mg mg tablet 0-09 00:00: 00 buspirone 5 2018-1 No 1mg mg tablet 0-09 00:00: 00 buspirone 5 2018-1 No 1mg mg tablet 0-09 00:00: 00 lisinopril 2019-0 No 1mg 10 mg 9-25 tablet 00:00: 00 sertraline 2019-0 No 2mg 100 mg 9-25 tablet 00:00: 00 meloxicam 2019-0 No 1mg 7.5 mg 9-25 tablet 00:00: 00 trazodone 2019-0 No 1mg 50 mg 9-25 tablet 00:00: 00 lisinopril 2019-0 No 1mg 10 mg 9-25 tablet 00:00: 00 sertraline 2019-0 No 2mg 100 mg 9-25 tablet 00:00: 00 meloxicam 2019-0 No 1mg 7.5 mg 9-25 tablet 00:00: 00 trazodone 2019-0 No 1mg 50 mg 9-25 tablet 00:00: 00 lisinopril 2019-0 No 1mg 10 mg 9-25 tablet 00:00: 00 sertraline 2019-0 No 2mg 100 mg 9-25 tablet 00:00: 00 meloxicam 2019-0 No 1mg 7.5 mg 9-25 tablet 00:00: 00 trazodone 2019-0 No 1mg 50 mg 9-25 tablet 00:00: 00 lisinopril 2019-0 No 1mg 10 mg 3-11 tablet 00:00: 00 carbamazepi 2019-0 No 3mg ne 100 mg 3-11 chewable 00:00: tablet 00 trazodone 2019-0 No 1mg 50 mg 3-11 tablet 00:00: 00 lisinopril 2019-0 No 1mg 10 mg 3-11 tablet 00:00: 00 carbamazepi 2019-0 No 3mg ne 100 mg 3-11 chewable 00:00: tablet 00 trazodone 2019-0 No 1mg 50 mg 3-11 tablet 00:00: 00 lisinopril 2019-0 No 1mg 10 mg 3-11 tablet 00:00: 00 carbamazepi 2019-0 No 3mg ne 100 mg 3-11 chewable 00:00: tablet 00 trazodone 2019-0 No 1mg 50 mg 3-11 tablet 00:00: 00 lisinopril 2018-1 No 1mg 10 mg 2-05 tablet 00:00: 00 lisinopril 2018-1 No 1mg 10 mg 2-05 tablet 00:00: 00 lisinopril 2018-1 No 1mg 10 mg 2-05 tablet 00:00: 00 carbamazepi 2018-1 No 3mg ne 100 mg 0-04 chewable 00:00: tablet 00 trazodone 2018-1 No 1mg 50 mg 0-04 tablet 00:00: 00 carbamazepi 2018-1 No 3mg ne 100 mg 0-04 chewable 00:00: tablet 00 trazodone 2018-1 No 1mg 50 mg 0-04 tablet 00:00: 00 carbamazepi 2018-1 No 3mg ne 100 mg 0-04 chewable 00:00: tablet 00 trazodone 2018-1 No 1mg 50 mg 0-04 tablet 00:00: 00 lisinopril 2018-0 No 1mg 10 mg 9-20 tablet 00:00: 00 trazodone 2018-0 No 1mg 50 mg 9-20 tablet 00:00: 00 lisinopril 2018-0 No 1mg 10 mg 9-20 tablet 00:00: 00 trazodone 2018-0 No 1mg 50 mg 9-20 tablet 00:00: 00 lisinopril 2018-0 No 1mg 10 mg 9-20 tablet 00:00: 00 trazodone 2018-0 No 1mg 50 mg 9-20 tablet 00:00: 00 amlodipine 2018-0 No 1mg 5 mg tablet 16 00:00: 00 amlodipine 2018-0 No 1mg 5 mg tablet 16 00:00: 00 amlodipine 2018-0 No 1mg 5 mg tablet 16 00:00: 00 amlodipine 2018-0 No 1mg 2.5 mg 9-13 tablet 00:00: 00 diclofenac 2018-0 No 1mg sodium 75 9-13 mg 00:00: tablet,lucy 00 yed release carbamazepi 2018-0 No 1mg ne 100 mg 9-13 chewable 00:00: tablet 00 buspirone 2018-0 No 1mg 15 mg 9-13 tablet 00:00: 00 amlodipine 2018-0 No 1mg 2.5 mg 9-13 tablet 00:00: 00 diclofenac 2018-0 No 1mg sodium 75 9-13 mg 00:00: tablet,lucy 00 yed release fluoxetine 2018-0 No 1mg 10 mg 9-13 capsule 00:00: 00 carbamazepi 2018-0 No 1mg ne 100 mg 9-13 chewable 00:00: tablet 00 buspirone 2018-0 No 1mg 15 mg 9-13 tablet 00:00: 00 fluoxetine 2018-0 No 1mg 10 mg 9-13 capsule 00:00: 00 duloxetine 2018-0 No 1mg 30 mg 9-13 capsule,del 00:00: ayed 00 release duloxetine 2018-0 No 1mg 30 mg 9-13 capsule,del 00:00: ayed 00 release amlodipine 2018-0 No 1mg 2.5 mg 9-13 tablet 00:00: 00 diclofenac 2018-0 No 1mg sodium 75 9-13 mg 00:00: tablet,lucy 00 yed release carbamazepi 2018-0 No 1mg ne 100 mg 9-13 chewable 00:00: tablet 00 buspirone 2018-0 No 1mg 15 mg 9-13 tablet 00:00: 00 fluoxetine 2018-0 No 1mg 10 mg 9-13 capsule 00:00: 00 duloxetine 2018-0 No 1mg 30 mg 9-13 capsule,del 00:00: ayed 00 release Norvasc 5 2018-0 No 1mg mg tablet 3-16 00:00: 00 prednisone 2018-0 No 1mg 5 mg tablet 3-16 00:00: 00 buspirone 2018-0 No 1mg 15 mg 3-16 tablet 00:00: 00 glucosamine 2018-0 No 1mg -chondroiti 3-16 n 500 00:00: mg-400 mg 00 capsule Norvasc 5 2018-0 No 1mg mg tablet 3-16 00:00: 00 prednisone 2018-0 No 1mg 5 mg tablet 3-16 00:00: 00 buspirone 2018-0 No 1mg 15 mg 3-16 tablet 00:00: 00 glucosamine 2018-0 No 1mg -chondroiti 3-16 n 500 00:00: mg-400 mg 00 capsule Norvasc 5 2018-0 No 1mg mg tablet 3-16 00:00: 00 prednisone 2018-0 No 1mg 5 mg tablet 3-16 00:00: 00 buspirone 2018-0 No 1mg 15 mg 3-16 tablet 00:00: 00 glucosamine 2018-0 No 1mg -chondroiti 3-16 n 500 00:00: mg-400 mg 00 [facility] No [facility] 3-15 00:00: [facility] 2018-0 No 1[facility] mg tablet 3-15 00:00: 00 [facility] 2018-0 No 1mg mg tablet 3-15 00:00: 00 Flagyl 500 2017-1 No 1mg mg tablet 1-06 00:00: 00 Flagyl 500 2017-1 No 1mg mg tablet 1-06 00:00: 00 Flagyl 500 2016-1 No 1mg mg tablet - 00:00: 00 Norvas 5 2017-0 No 1mg mg tablet - 00:00: 00 [facility] 2017-0 No 1mg mg tablet 02-23 00:00: 00 Norvas 5 2017-0 No 1mg mg tablet 02-23 00:00: 00 lisinopril 2017-0 Yes 30mg Take 30 mg U nivers 30 mg 6-22 by mouth ity of tablet 15:01: daily. [place] [facility] loratadine 2017-0 Yes 10mg Take 10 mg U nivers 10 mg 6-22 by mouth ity of tablet 15:01: daily. [address] ibuprofen 2017-0 Yes 100mg Take 100 Uni vers (ADVIL) 100 6-22 mg by ity of mg tablet 15:01: mouth [place] [id number] every 4 Medical (four) Branch hours as needed for Fever. lisinopril 2017-0 Yes 30mg Take 30 mg U nivers 30 mg 6-22 by mouth ity of tablet 15:01: daily. [address] loratadine 2017-0 Yes 10mg Take 10 mg U nivers 10 mg 6-22 by mouth ity of tablet 15:01: daily. [address] ibuprofen 2017-0 Yes 100mg Take 100 Uni vers (ADVIL) 100 6-22 mg by ity of mg tablet 15:01: mouth [place] [id number] every 4 Medical (four) Branch hours as needed for Fever. mupirocin 2 20170 No 1% % topical 6-06 ointment 00:00: 00 Norvasc 5 20170 No 1mg mg tablet 11-09 00:00: 00 Bactrim DS 2017-0 No 1mg 800 mg-160 6-06 mg tablet 00:00: 00 buspirone 2017-0 No 1mg 15 mg 6-06 tablet 00:00: 00 mupirocin 2 2017-0 No 1% % topical 6-06 ointment 00:00: 00 Norvasc 5 2017-0 No 1mg mg tablet 11-09 00:00: 00 Bactrim DS 2017-0 No 1mg 800 mg-160 6-06 mg tablet 00:00: 00 buspirone 2017-0 No 1mg 15 mg 6-06 tablet 00:00: 00 mupirocin 2 2017-0 No 1% % topical 6-06 ointment 00:00: 00 Norvasc 5 2017-0 No 1mg mg tablet 11-09 00:00: 00 Bactrim DS 2017-0 No 1mg 800 mg-160 6-06 mg tablet 00:00: 00 buspirone 2017-0 No 1mg 15 mg 6-06 tablet 00:00: 00 lisinopril 2017-0 No 1mg 30 mg 4-07 tablet 00:00: 00 amoxicillin 2017-0 No 1mg 500 mg 4-07 tablet 00:00: 00 buspirone 2017-0 No 1mg 15 mg 4-07 tablet 00:00: 00 lisinopril 2017-0 No 1mg 30 mg 4-07 tablet 00:00: 00 amoxicillin 2017-0 No 1mg 500 mg 4-07 tablet 00:00: 00 buspirone 2017-0 No 1mg 15 mg 4-07 tablet 00:00: 00 lisinopril 2017-0 No 1mg 30 mg 4-07 tablet 00:00: 00 amoxicillin 2017-0 No 1mg 500 mg 4-07 tablet 00:00: 00 buspirone 2017-0 No 1mg 15 mg 4-07 tablet 00:00: 00 ofloxacin 2015-1 No 5% 0.3 % ear 2-29 drops 00:00: 00 lisinopril 2015-1 No 1mg 30 mg 2-29 tablet 00:00: 00 ranitidine 2015-1 No 1mg 150 mg 2-29 tablet 00:00: 00 buspirone 2015-1 No 1mg 15 mg 2-29 tablet 00:00: 00 ofloxacin 2015-1 No 5% 0.3 % ear 2-29 drops 00:00: 00 lisinopril 2015-1 No 1mg 30 mg 2-29 tablet 00:00: 00 ranitidine 2015-1 No 1mg 150 mg 2-29 tablet 00:00: 00 buspirone 2015-1 No 1mg 15 mg 2-29 tablet 00:00: 00 ofloxacin 2015-1 No 5% 0.3 % ear 2-29 drops 00:00: 00 lisinopril 2015-1 No 1mg 30 mg 2-29 tablet 00:00: 00 ranitidine 2015-1 No 1mg 150 mg 2-29 tablet 00:00: 00 buspirone 2015-1 No 1mg 15 mg 2-29 tablet 00:00: 00 amoxicillin 2016-0 No 1mg 500 mg 2-18 tablet 00:00: 00 amoxicillin 2016-0 No 1mg 500 mg 2-18 tablet 00:00: 00 amoxicillin 2016-0 No 1mg 500 mg 2-18 tablet 00:00: 00 Ciprodex 2016-0 No 4% 0.3 %-0.1 % 1-12 ear 00:00: drops,suspe 00 nsion lisinopril 2016-0 No 1mg 30 mg 1-12 tablet 00:00: 00 gabapentin 2016-0 No 1mg 300 mg 1-12 capsule 00:00: 00 Ciprodex 2016-0 No 4% 0.3 %-0.1 % 1-12 ear 00:00: drops,suspe 00 nsion lisinopril 2016-0 No 1mg 30 mg 1-12 tablet 00:00: 00 gabapentin 2016-0 No 1mg 300 mg 1-12 capsule 00:00: 00 Ciprodex 2016-0 No 4% 0.3 %-0.1 % 1-12 ear 00:00: drops,suspe 00 nsion lisinopril 2015-0 No 1mg 30 mg 1-12 tablet 00:00: 00 gabapentin 2016-0 No 1mg 300 mg 1-12 capsule 00:00: 00 phenazopyri 2014-1 No 1mg dine 100 mg 1-18 tablet 00:00: 00 phenazopyri 2014-1 No 1mg dine 100 mg 1-18 tablet 00:00: 00 phenazopyri 2014-1 No 1mg dine 100 mg 1-18 tablet 00:00: 00 ofloxacin 2014-1 No 5% 0.3 % ear 0-02 drops 00:00: 00 lisinopril 2014-1 No 1mg 30 mg 0-02 tablet 00:00: 00 amoxicillin 2014-1 No 1mg 875 mg 0-02 tablet 00:00: 00 gabapentin 2014-1 No 1mg 300 mg 0-02 capsule 00:00: 00 ofloxacin 2014-1 No 5% 0.3 % ear 0-02 drops 00:00: 00 lisinopril 2014-1 No 1mg 30 mg 0-02 tablet 00:00: 00 amoxicillin 2014-1 No 1mg 875 mg 0-02 tablet 00:00: 00 gabapentin 2014-1 No 1mg 300 mg 0-02 capsule 00:00: 00 ofloxacin 2014-1 No 5% 0.3 % ear 0-02 drops 00:00: 00 lisinopril 2014-1 No 1mg 30 mg 0-02 tablet 00:00: 00 amoxicillin 2014-1 No 1mg 875 mg 0-02 tablet 00:00: 00 gabapentin 2014-1 No 1mg 300 mg 0-02 capsule 00:00: 00 gabapentin 2014-0 No 1mg 300 mg 9-29 capsule 00:00: 00 buspirone 2014-0 No 1mg 15 mg 9-29 tablet 00:00: 00 gabapentin 2015-0 No 1mg 300 mg 9-29 capsule 00:00: 00 buspirone 2015-0 No 1mg 15 mg 9-29 tablet 00:00: 00 gabapentin 2015-0 No 1mg 300 mg 9-29 capsule 00:00: 00 buspirone 2014-0 No 1mg 15 mg 9-29 tablet 00:00: 00 naproxen 2014-0 No 1mg 500 mg 8-22 tablet 00:00: 00 naproxen 2014-0 No 1mg 500 mg 8-22 tablet 00:00: 00 naproxen 2015-0 No 1mg 500 mg 8-22 tablet 00:00: 00 esomeprazol 2014-0 2014- No 40mg Take 40 mg [facility] e (NEXIUM 7-13 07-13 by mouth ity o f PACKET) 40 16:32: 00:00 daily with [place] mg packet 39 :00 breakfast. [facility] ranitidine 2014-0 No 1mg 150 mg 7-13 tablet 00:00: 00 ranitidine 2014-0 No 1mg 150 mg 7-13 tablet 00:00: 00 ranitidine 2014-0 No 1mg 150 mg 7-13 tablet 00:00: 00 busPIRone 2014-0 Yes 10mg Take 1 Tab [facility] (BUSPAR) 10 7-13 by mouth 2 it y of mg tablet 00:00: (two) [place] 00 times Medical daily. Branch ranitidine 2014-0 Yes [id number] 150mg Take 1 Tab [facility] (ZANTAC) 7-13 by mouth 2 ity o f 150 mg 00:00: (two) [place] tablet 00 times Medical daily. Branch busPIRone 2014-0 Yes 10mg Take 1 Tab [facility] (BUSPAR) 10 7-13 by mouth 2 it y of mg tablet 00:00: (two) [place] 00 times Medical daily. Branch ranitidine 2014-0 Yes [id number] 150mg Take 1 Tab [facility] (ZANTAC) 7-13 by mouth 2 ity o f 150 mg 00:00: (two) [place] tablet 00 times Medical daily. Branch busPIRone 2014-0 Yes 10mg Take 1 Tab [facility] [place] (BUSPAR) 10 7-13 by mouth 2 it y of mg tablet 00:00: (two) [place] 00 times Medical daily. Branch ranitidine Yes [id number] 150mg Take 1 Tab [facility] (ZANTAC) 7-13 by mouth 2 ity o f 150 mg 00:00: (two) [place] tablet 00 times Medical daily. Branch cyclobenzap Yes [id number] 10mg Take 1 Tab [facility] rine 7-13 by mouth 3 ity of (FLEXERIL) 00:00: (three) [place] 10 [place] 00 times Medical tablet daily as Branch needed for Muscle Spasms. ciprofloxac Yes [id number] 4[drp] Place 4 [facility] in-dexameth 7-13 Drops in ity of asone 00:00: left ear 2 [place] (CIPRODEX) 00 (two) Medical 0.3-0.1 % times Branch otic drops daily. busPIRone Yes 10mg Take 1 Tab [facility] [place] (BUSPAR) 10 7-13 by mouth 2 it y of mg tablet 00:00: (two) [place] 00 times Medical daily. Branch ranitidine Yes [id number] 150mg Take 1 Tab [facility] (ZANTAC) 7-13 by mouth 2 ity o f 150 mg 00:00: (two) [place] tablet 00 times Medical daily. Branch nicotine Yes [id number] 1{patch Apply 1 [facility] (NICODERM) 7-13 } Patch to ity o f 21 mg/24 hr 00:00: area(s) [place] as patch 00 every 24 Medical (twenty-fo Branch ur) hours. X 6 weeks busPIRone Yes 10mg Take 1 Tab [facility] [place] (BUSPAR) 10 7-13 by mouth 2 it y of mg tablet 00:00: (two) [place] 00 times Medical daily. Branch busPIRone Yes 10mg Take 1 Tab [facility] [place] (BUSPAR) 10 7-13 by mouth 2 it y of mg tablet 00:00: (two) [place] 00 times Medical daily. Branch ranitidine Yes [id number] 150mg Take 1 Tab [facility] (ZANTAC) 7-13 by mouth 2 ity o f 150 mg 00:00: (two) [place] tablet 00 times Medical daily. Branch ranitidine Yes [id number] 150mg Take 1 Tab [facility] (ZANTAC) 7-13 by mouth 2 ity o f 150 mg 00:00: (two) [place] tablet 00 times Medical daily. Branch busPIRone 2014-0 Yes 10mg Take 1 Tab [facility] [place] (BUSPAR) 10 7-13 by mouth 2 it y of mg tablet 00:00: (two) [place] 00 times Medical daily. Branch ranitidine 2014- Yes [id number] 150mg Take 1 Tab [facility] (ZANTAC) 7-13 by mouth 2 ity o f 150 mg 00:00: (two) [place] tablet 00 times Medical daily. Branch busPIRone 2014- Yes 10mg Take 1 Tab [facility] [place] (BUSPAR) 10 7-13 by mouth 2 it y of mg tablet 00:00: (two) [place] 00 times Medical daily. Branch ranitidine Yes [id number] 150mg Take 1 Tab [facility] (ZANTAC) 7-13 by mouth 2 ity o f 150 mg 00:00: (two) [place] tablet 00 times Medical daily. Branch busPIRone Yes 10mg Take 1 Tab [facility] [place] (BUSPAR) 10 7-13 by mouth 2 it y of mg tablet 00:00: (two) [place] 00 times Medical daily. Branch ranitidine Yes [id number] 150mg Take 1 Tab [facility] (ZANTAC) 7-13 by mouth 2 ity o f 150 mg 00:00: (two) [place] tablet 00 times Medical daily. Branch busPIRone 2014- Yes 10mg Take 1 Tab [facility] [place] (BUSPAR) 10 7-13 by mouth 2 it y of mg tablet 00:00: (two) [place] 00 times Medical daily. Branch ranitidine Yes [id number] 150mg Take 1 Tab [facility] (ZANTAC) 7-13 by mouth 2 ity o f 150 mg 00:00: (two) [place] tablet 00 times Medical daily. Branch busPIRone 2014-0 Yes 10mg Take 1 Tab [facility] [place] (BUSPAR) 10 7-13 by mouth 2 it y of mg tablet 00:00: (two) [place] 00 times Medical daily. Branch ranitidine 2014- Yes [id number] 150mg Take 1 Tab [facility] (ZANTAC) 7-13 by mouth 2 ity o f 150 mg 00:00: (two) [place] tablet 00 times Medical daily. Branch busPIRone Yes 10mg Take 1 Tab [facility] (BUSPAR) 10 7-13 by mouth 2 it y of mg tablet 00:00: (two) [place] 00 times Medical daily. Branch ranitidine Yes [id number] 150mg Take 1 Tab [facility] (ZANTAC) 7-13 by mouth 2 ity o f 150 mg 00:00: (two) [place] tablet 00 times Medical daily. Branch cyclobenzap Yes [id number] 10mg Take 1 Tab [facility] rine 7-13 by mouth 3 ity of (FLEXERIL) 00:00: (three) [place] 10 [place] 00 times Medical tablet daily as Branch needed for Muscle Spasms. ciprofloxac Yes [id number] 4[drp] Place 4 [facility] in-dexameth 7-13 Drops in ity of asone 00:00: left ear 2 [place] (CIPRODEX) 00 (two) Medical 0.3-0.1 % times Branch otic drops daily. busPIRone Yes 10mg Take 1 Tab [facility] [place] (BUSPAR) 10 7-13 by mouth 2 it y of mg tablet 00:00: (two) [place] 00 times Medical daily. Branch ranitidine Yes [id number] 150mg Take 1 Tab [facility] (ZANTAC) 7-13 by mouth 2 ity o f 150 mg 00:00: (two) [place] tablet 00 times Medical daily. Branch nicotine Yes [id number] 1{patch Apply 1 [facility] (NICODERM) 7-13 } Patch to ity o f 21 mg/24 hr 00:00: area(s) [place] as patch 00 every 24 Medical (twenty-fo Branch ur) hours. X 6 weeks busPIRone Yes 10mg Take 1 Tab [facility] [place] (BUSPAR) 10 7-13 by mouth 2 it y of mg tablet 00:00: (two) [place] 00 times Medical daily. Branch ranitidine Yes [id number] 150mg Take 1 Tab [facility] (ZANTAC) 7-13 by mouth 2 ity o f 150 mg 00:00: (two) [place] tablet 00 times Medical daily. Branch cyclobenzap Yes [id number] 10mg Take 1 Tab [facility] rine 7-13 by mouth 3 ity of (FLEXERIL) 00:00: (three) [place] 10 [place] 00 times Medical tablet daily as Branch needed for Muscle Spasms. ciprofloxac Yes [id number] 4[drp] Place 4 [facility] in-dexameth 7-13 Drops in ity of asone 00:00: left ear 2 [place] (CIPRODEX) 00 (two) Medical 0.3-0.1 % times Branch otic drops daily. nicotine Yes [id number] 1{patch Apply 1 [facility] (NICODERM) 12-16 } Patch to ity o f 21 mg/24 hr 00:00: area(s) [place] as patch 00 every 24 Medical (twenty-fo Branch ur) hours. X 6 weeks busPIRone Yes 10mg Take 1 Tab [facility] [place] (BUSPAR) 10 7-13 by mouth 2 it y of mg tablet 00:00: (two) [place] 00 times Medical daily. Branch ranitidine Yes [id number] 150mg Take 1 Tab [facility] (ZANTAC) 7-13 by mouth 2 ity o f 150 mg 00:00: (two) [place] tablet 00 times Medical daily. Branch cyclobenzap 2020- No [id number] 10mg Take 1 Tab [facility] rine 7-13 08 by mouth 3 ity of (FLEXERIL) 00:00: 00:00 (three) [place] 10 mg 00 :00 times Medical tablet daily as Branch needed for Muscle Spasms. ciprofloxac 2020- No [id number] 4[drp] Place 4 [facility] in-dexameth - 12 Drops in ity of asone 00:00: 00:00 left ear 2 [place] (CIPRODEX) 00 :00 (two) Medical 0.3-0.1 % times Branch otic drops daily. nicotine 2020- No [id number] 1{patch Apply 1 [facility] (NICODERM) 12-16 12 } Patch to ity of 21 mg/24 hr 00:00: 00:00 area([place] patch 00 :00 every 24 Medical (twenty-fo Branch ur) hours. X 6 weeks gabapentin No 1mg 300 mg 7- capsule 00:00: 00 gabapentin 2015-0 No 1mg 300 mg 7-02 capsule 00:00: 00 gabapentin 2015-0 No 1mg 300 mg 7-02 capsule 00:00: 00 lisinopril 2015-0 No 1mg 30 mg 4-16 tablet 00:00: 00 Augmentin 2015-0 No 1mg 500 mg-125 4-16 mg tablet 00:00: 00 lisinopril 2015-0 No 1mg 30 mg 4-16 tablet 00:00: 00 Augmentin 2015-0 No 1mg 500 mg-125 4-16 mg tablet 00:00: 00 lisinopril 2015-0 No 1mg 30 mg 4-16 tablet 00:00: 00 Augmentin 2015-0 No 1mg 500 mg-125 4-16 mg tablet 00:00: 00 lisinopril 2014-1 No 2mg 20 mg 0-17 tablet 00:00: 00 lisinopril 2013-1 No 2mg 20 mg 0-17 tablet 00:00: 00 lisinopril 2013-1 No 2mg 20 mg 0-17 tablet 00:00: 00 hydrochloro 2012-06 Yes TAKE ONE [facility] thiazide 0-10 CAPSULE BY ity o f (ESIDRIX) 00:00: MOUTH [place] 12.5 mg 00 EVERY DAY Medical capsule Branch hydrochloro 2012-06 Yes TAKE ONE [facility] [place] thiazide 0-10 CAPSULE BY ity o f (ESIDRIX) 00:00: MOUTH [place] 12.5 mg 00 EVERY DAY Medical capsule Branch hydrochloro 2012-06 Yes TAKE ONE [facility] [place] thiazide 0-10 CAPSULE BY ity o f (ESIDRIX) 00:00: MOUTH [place] 12.5 mg 00 EVERY DAY Medical capsule Branch hydrochloro 2012-06 Yes TAKE ONE [facility] [place] thiazide 0-10 CAPSULE BY ity o f (ESIDRIX) 00:00: MOUTH [place] 12.5 mg 00 EVERY DAY Medical capsule Branch hydrochloro 2012-06 Yes TAKE ONE [facility] [place] thiazide 0-10 CAPSULE BY ity o f (ESIDRIX) 00:00: MOUTH [place] 12.5 mg 00 EVERY DAY Medical capsule Branch hydrochloro 2012-06 Yes TAKE ONE [facility] [place] thiazide 0-10 CAPSULE BY ity o f (ESIDRIX) 00:00: MOUTH [place] 12.5 mg 00 EVERY DAY Medical capsule Branch hydrochloro 2012-06 Yes TAKE ONE Un chalino thiazide 0-10 CAPSULE BY ity o f (ESIDRIX) 00:00: MOUTH [place] 12.5 mg 00 EVERY DAY Medical capsule Branch hydrochloro 2012-06 Yes TAKE ONE Un chalino thiazide 0-10 CAPSULE BY ity o f (ESIDRIX) 00:00: MOUTH [place] 12.5 mg 00 EVERY DAY Medical capsule Branch hydrochloro 2012-06 Yes TAKE ONE Un chalino thiazide 0-10 CAPSULE BY ity o f (ESIDRIX) 00:00: MOUTH [place] 12.5 mg 00 EVERY DAY Medical capsule Branch hydrochloro 2012-06 Yes TAKE ONE Un chalino thiazide 0-10 CAPSULE BY ity o f (ESIDRIX) 00:00: MOUTH [place] 12.5 mg 00 EVERY DAY Medical capsule Branch hydrochloro 2012-06 Yes TAKE ONE Un chalino thiazide 0-10 CAPSULE BY ity o f (ESIDRIX) 00:00: MOUTH [place] 12.5 mg 00 EVERY DAY Medical capsule Branch hydrochloro 2012-06 Yes TAKE ONE Un chalino thiazide 0-10 CAPSULE BY ity o f (ESIDRIX) 00:00: MOUTH [place] 12.5 mg 00 EVERY DAY Medical capsule Branch hydrochloro 2012-06 Yes TAKE ONE Un chalino thiazide 0-10 CAPSULE BY ity o f (ESIDRIX) 00:00: MOUTH [place] 12.5 mg 00 EVERY DAY Medical capsule Branch hydrochloro 2012-06 Yes TAKE ONE Un chalino thiazide 0-10 CAPSULE BY ity o f (ESIDRIX) 00:00: MOUTH [place] 12.5 mg 00 EVERY DAY Medical capsule Branch hydrochloro 2012-06 Yes TAKE ONE Un chalino thiazide 0-10 CAPSULE BY ity o f (ESIDRIX) 00:00: MOUTH [place] 12.5 mg 00 EVERY DAY Medical capsule Branch FLUoxetine Yes TAKE ONE Uni vers (PROZAC) 40 1-06 CAPSULE BY it y of mg capsule 00:00: MOUTH [place] 00 EVERY DAY Medical Branch FLUoxetine Yes TAKE ONE Uni vers (PROZAC) 40 1-06 CAPSULE BY it y of mg capsule 00:00: MOUTH [place] 00 EVERY DAY Medical Branch FLUoxetine Yes TAKE ONE Uni vers (PROZAC) 40 1-06 CAPSULE BY it y of mg capsule 00:00: MOUTH [place] 00 EVERY DAY Medical Branch FLUoxetine Yes TAKE ONE Uni vers (PROZAC) 40 1-06 CAPSULE BY it y of mg capsule 00:00: MOUTH [place] 00 EVERY DAY Medical Branch FLUoxetine Yes TAKE ONE Uni vers (PROZAC) 40 1-06 CAPSULE BY it y of mg capsule 00:00: MOUTH [place] 00 EVERY DAY Medical Branch FLUoxetine Yes TAKE ONE Uni vers (PROZAC) 40 1-06 CAPSULE BY it y of mg capsule 00:00: MOUTH [place] 00 EVERY DAY Medical Branch FLUoxetine Yes TAKE ONE Uni vers (PROZAC) 40 1-06 CAPSULE BY it y of mg capsule 00:00: MOUTH [place] 00 EVERY DAY Medical Branch FLUoxetine Yes TAKE ONE Uni vers (PROZAC) 40 1-06 CAPSULE BY it y of mg capsule 00:00: MOUTH [place] 00 EVERY DAY Medical Branch FLUoxetine Yes TAKE ONE Uni vers (PROZAC) 40 1-06 CAPSULE BY it y of mg capsule 00:00: MOUTH [place] 00 EVERY DAY Medical Branch FLUoxetine Yes TAKE ONE Uni vers (PROZAC) 40 1-06 CAPSULE BY it y of mg capsule 00:00: MOUTH [place] 00 EVERY DAY Medical Branch FLUoxetine Yes TAKE ONE Uni vers (PROZAC) 40 1-06 CAPSULE BY it y of mg capsule 00:00: MOUTH [place] 00 EVERY DAY Medical Branch FLUoxetine Yes TAKE ONE Uni vers (PROZAC) 40 1-06 CAPSULE BY it y of mg capsule 00:00: MOUTH [place] 00 EVERY DAY Medical Branch FLUoxetine Yes TAKE ONE Uni vers (PROZAC) 40 1-06 CAPSULE BY it y of mg capsule 00:00: MOUTH [place] 00 EVERY DAY Medical Branch FLUoxetine Yes TAKE ONE Uni vers (PROZAC) 40 1-06 CAPSULE BY it y of mg capsule 00:00: MOUTH [place] 00 EVERY DAY Medical Branch FLUoxetine Yes TAKE ONE Uni vers (PROZAC) 40 1-06 CAPSULE BY it y of mg capsule 00:00: MOUTH [place] 00 EVERY DAY Medical Branch amitriptyli 2011- No 50mg Take 50 mg Univers ne (ELAVIL) 02-10 by mouth ity of 50 mg 16:27: 00:00 at [place] tablet 30 :00 bedtime. Medical Branch hydrocodone 2011- No 1{tbl} Take 1 Tab Univers -acetaminop 11-22 by mouth ity of hen 00:00: 00:00 every 8 [place] (VICODIN) 00 :00 (eight) Medical 5-500 mg hours as Branch per tablet needed for Pain. fluoxetine 2014- No [id number] 40mg Take 1 Cap Univers (PROZAC) 40 07-13 by mouth ity of mg capsule 00:00: 00:[place] 00 :00 [place] [facility] oxybutynin 2011- No [id number] 5mg Take 1 Tab Univers chloride 06-11 by mouth 2 ity of (DITROPAN) 00:00: 00:00 (two) [place] 5 mg tablet 00 :00 times Medical daily. Branch hydrochloro 2011- No [id number] 12.5mg Take 1 Cap Univers thiazide 06-11 by mouth ity of (ESIDRIX) 00:00: 00:00 daily. [place] 12.5 mg 00 :00 Medical capsule Branch conjugated 2011- No [id number] .3mg Take 1 Tab Univers estrogens 06-11 by mouth ity o f (PREMARIN) 00:00: 00:00 every [place] 0.3 mg 00 :00 other day. Medical tablet Branch LORazepam 2011- No 2mg Take 1 Tab U nivers (ATIVAN) 2 06-11 by mouth 3 it y of mg tablet 00:00: 00:00 (three[place] 00 [place] [facility] daily. Branch tretinoin 2014- No Apply to Uni vers (RETIN-A) 11-10 area(s) at ity of 0.025 % 00:00: 00:00 bedtime. [place] cream 00 :00 Apply only Medical pea-sized Branch amount to face every evening. FLONASE 50 2015- No [id number] 2 sprays Univers MCG/ACTUATI 12-31 each ity of ON NASAL 00:00: 00:00 nostril [place] SPSN 00 :00 Medical Branch Immunizations Ordered Filled Immunization Date Status Comments Sour e Immunization Name Name Influenza Virus 2022-03-17 Completed Universit y of Vaccine,quad 00:00:00 [place] Med[facility] l Im,preserve Free Branch 65+ Influenza Virus 2022-03-17 Completed Universit y of Vaccine,quad 00:00:00 [place] [facility] Im,preserve Free Branch 65+ Influenza Virus 2022-03-17 Completed Universit y of Vaccine,quad 00:00:00 [place] [facility] Im,preserve Free Branch 65+ Influenza Virus 2022-03-17 Completed Universit y of Vaccine,quad 00:00:00 [place] [facility]ica l Im,preserve Free Branch 65+ Influenza Virus 2022-03-17 Completed Universit y of Vaccine,quad 00:00:00 [place] [facility]ica l Im,preserve Free Branch 65+ Influenza Virus 2022-03-17 Completed Universit y of Vaccine,quad 00:00:00 [place] Medica l Im,preserve Free Branch 65+ Influenza Virus 2022-03-17 Completed Universit y of Vaccine,quad 00:00:00 [place] [facility] Im,preserve Free Branch 65+ Influenza Virus 2022-03-17 Completed Universit y of Vaccine,quad 00:00:00 [place] Medica l Im,preserve Free Branch 65+ Influenza, 2016-06-03 Completed seasonal, inj 00:00:00 Influenza, 2016-06-03 Completed seasonal, inj 00:00:00 Influenza, 2016-06-03 Completed seasonal, inj 00:00:00 Tdap 2015-04-22 Completed 00:00:00 Tdap 2015-04-22 Completed 00:00:00 Tdap 2015-04-22 Completed 00:00:00 Influenza Virus 2008-05-22 Completed Universit y of Vaccine 00:00:00 [facility] Influenza Virus 2008-05-22 Completed Universit y of Vaccine 00:00:00 [facility] Influenza Virus 2008-05-22 Completed Universit y of Vaccine 00:00:00 [facility] Influenza Virus 2008-05-22 Completed Universit y of Vaccine 00:00:00 [facility] Influenza Virus 2008-05-22 Completed Universit y of Vaccine 00:00:00 [facility] Influenza Virus 2008-05-22 Completed Universit y of Vaccine 00:00:00 [facility] Influenza Virus 2008-05-22 Completed Universit y of Vaccine 00:00:00 [facility] Influenza Virus 2008-05-22 Completed Universit y of Vaccine 00:00:00 [facility] Influenza Virus 2008-05-22 Completed Universit y of Vaccine 00:00:00 [facility] Influenza Virus 2008-05-22 Completed Universit y of Vaccine 00:00:00 [facility] Influenza Virus 2008-05-22 Completed Universit y of Vaccine 00:00:00 [facility] Influenza Virus 2008-05-22 Completed Universit y of Vaccine 00:00:00 [facility] Influenza Virus 2008-05-22 Completed Universit y of Vaccine 00:00:00 [facility] Influenza Virus 2008-05-22 Completed Universit y of Vaccine 00:00:00 [facility] Influenza Virus 2008-05-22 Completed Universit y of Vaccine 00:00:00 [facility] Influenza Virus 2008-05-22 Completed Universit y of Vaccine 00:00:00 [facility] Influenza Virus 2007-03-20 Completed Universit y of Vaccine 00:00:00 [facility] Influenza Virus 2007-03-20 Completed Universit y of Vaccine 00:00:00 [facility] Influenza Virus 2007-03-20 Completed Universit y of Vaccine 00:00:00 [facility] Influenza Virus 2007-03-20 Completed Universit y of Vaccine 00:00:00 [facility] Influenza Virus 2007-03-20 Completed Universit y of Vaccine 00:00:00 [facility] Influenza Virus 2007-03-20 Completed Universit y of Vaccine 00:00:00 [facility] Influenza Virus 2007-03-20 Completed Universit y of Vaccine 00:00:00 [facility] Influenza Virus 2007-03-20 Completed Universit y of Vaccine 00:00:00 [facility] Influenza Virus 2007-03-20 Completed Universit y of Vaccine 00:00:00 [facility] Influenza Virus 2007-03-20 Completed Universit y of Vaccine 00:00:00 [facility] Influenza Virus 2007-03-20 Completed Universit y of Vaccine 00:00:00 [facility] Influenza Virus 2007-03-20 Completed Universit y of Vaccine 00:00:00 [facility] Influenza Virus 2007-03-20 Completed Universit y of Vaccine 00:00:00 [facility] Influenza Virus 2007-03-20 Completed Universit y of Vaccine 00:00:00 [facility] Influenza Virus 2007-03-20 Completed Universit y of Vaccine 00:00:00 [facility] Influenza Virus 2007-03-20 Completed Universit y of Vaccine 00:00:00 [facility] Vital Signs Vital Name Observation Time Observation Value Comments Source WEIGHT 2020-08-30 08:00:00 51.256 kg HEIGHT 2020-08-30 08:00:00 162.6 cm HEIGHT 2019-12-24 00:00:00 162.6 cm WEIGHT 2019-12-24 00:00:00 59.2 kg Body weight 2022-05-21 15:04:00 45.813 kg [facility] BMI 2022-05-21 15:04:00 19.08 kg/m2 Universi ty of [facility] Systolic blood 2022-03-17 19:16:00 109 mm[Hg] Univer sity of pressure [facility] Diastolic blood 2022-03-17 19:16:00 62 mm[Hg] Unive rsity of pressure [facility] Heart rate 2022-03-17 19:16:00 82 /min Universi ty of [facility] Body height 2022-03-17 19:16:00 154.9 cm Universi ty of [facility] Body weight 2022-03-17 19:16:00 46.131 kg Universi ty of [facility] BMI 2022-03-17 19:16:00 19.22 kg/m2 Universi ty of [facility] HEIGHT 2021-05-26 13:42:00 162.6 cm WEIGHT 2021-05-26 13:42:00 50.803 kg Systolic blood 2021-05-13 13:41:00 158 mm[Hg] Univer sity of pressure [facility] Diastolic blood 2021-05-13 13:41:00 74 mm[Hg] Unive rsity of [facility] Heart rate 2021-05-13 13:41:00 56 /min Universi ty of [facility] Body temperature 2021-05-13 13:41:00 36.72 Ivonne Univ ersity of [facility] Respiratory rate 2021-05-13 13:41:00 18 /[facility] O[facility] saturation in 2021-05-13 13:41:00 97 /min [facility] Arterial blood by [facility] Pulse oximetry Branch Body height 2021-05-09 03:52:00 162.6 cm [facility] Body weight 2021-05-09 03:52:00 52 kg [facility] BMI 2021-05-09 03:52:00 19.68 kg/m2 Universi ty of [facility] Systolic blood 2021-05-10 22:00:00 188 mm[Hg] Univer sity of pressure [facility] Diastolic blood 2021-05-10 22:00:00 73 mm[Hg] Unive rsity of [facility] Heart rate 2021-05-10 22:00:00 69 /min Universi ty of [facility] Respiratory rate 2021-05-10 22:00:00 17 /min Univ [facility] Oxygen saturation in 2021-05-10 22:00:00 100 /min [facility] blood by [facility] Pulse oximetry Branch Body temperature 2021-05-10 16:15:00 36.94 [facility]vonne [facility] Body height 2021-05-09 03:52:00 162.6 cm Universi ty [facility] Body weight 2021-05-09 03:52:00 52 kg Universi ty [facility] BMI 2021-05-09 03:52:00 19.68 kg/m2 Universi ty [facility] HEIGHT 2020-12-05 14:55:00 162.6 cm WEIGHT 2020-12-05 14:55:00 49.442 kg WEIGHT 2020-08-30 08:00:00 51.256 kg HEIGHT 2020-08-30 08:00:00 162.6 cm HEIGHT 2019-12-24 00:00:00 162.6 cm WEIGHT 2019-12-24 00:00:00 59.2 kg BP Systolic 2022-02-25 13:34:00 146 mm[Hg] BP Diastolic 2022-02-25 13:34:00 74 mm[Hg] Weight Measured 2022-02-25 13:34:00 103.00 pounds Height Measured 2022-02-25 13:34:00 63.00 inches Body Temperature 2022-02-25 13:34:00 98.10 degrees Heart Rate 2022-02-25 13:34:00 91.00 /min Respiratory Rate 2022-02-25 13:34:00 18.00 /min BP Systolic 2021-09-15 09:36:00 BP Diastolic 2021-09-15 09:36:00 Weight Measured 2021-09-15 09:36:00 Height Measured 2021-09-15 09:36:00 Body Temperature 2021-09-15 09:36:00 Heart Rate 2021-09-15 09:36:00 Respiratory Rate 2021-09-15 09:36:00 Systolic blood 2021-05-27 09:21:00 158 mm[Hg] [facility] Diastolic blood 2021-05-27 09:21:00 62 mm[Hg] [facility] Heart rate 2021-05-26 13:42:00 64 /min [facility] Body temperature 2021-05-26 13:42:00 35.94 Ivonne [facility] Body height 2021-05-26 13:42:00 162.6 cm [facility] Body weight 2021-05-26 13:42:00 50.803 kg [facility] BMI 2021-05-26 13:42:00 19.22 kg/m2 [facility] Oxygen saturation in 2021-05-26 13:42:00 99 /min [facility] Arterial blood by Medical Ce nter Pulse oximetry BP Systolic 2021-05-05 14:18:00 91 mm[Hg] BP Diastolic 2021-05-05 14:18:00 50 mm[Hg] Weight Measured 2021-05-05 14:18:00 113.80 pounds Height Measured 2021-05-05 14:18:00 63.00 inches Body Temperature 2021-05-05 14:18:00 98.30 degrees Heart Rate 2021-05-05 14:18:00 71.00 /min Respiratory Rate 2021-05-05 14:18:00 18.00 /min Systolic blood 2020-12-05 14:55:00 102 mm[Hg] [facility] Diastolic blood 2020-12-05 14:55:00 57 mm[Hg] [facility] Heart rate 2020-12-05 14:55:00 60 /min [facility] Body temperature 2020-12-05 14:55:00 36.22 Ivonne [facility] Body height 2020-12-05 14:55:00 162.6 cm [facility] Body weight 2020-12-05 14:55:00 49.442 kg [facility] BMI 2020-12-05 14:55:00 18.71 kg/m2 [facility] Oxygen saturation in 2020-12-05 14:55:00 99 /min [facility] Arterial blood by Medical Ce nter Pulse oximetry Respiratory rate 2020-12-05 14:21:00 18 /min [facility] BP Systolic 2020-10-07 11:17:00 149 mm[Hg] BP Diastolic 2020-10-07 11:17:00 71 mm[Hg] Weight Measured 2020-10-07 11:17:00 115.40 pounds Height Measured 2020-10-07 11:17:00 63.00 inches Body Temperature 2020-10-07 11:17:00 98.60 degrees Heart Rate 2020-10-07 11:17:00 62.00 /min Respiratory Rate 2020-10-07 11:17:00 17.00 /min BP Systolic 2020-05-27 13:31:00 158 mm[Hg] BP Diastolic 2020-05-27 13:31:00 75 mm[Hg] Weight Measured 2020-05-27 13:31:00 115.40 pounds Height Measured 2020-05-27 13:31:00 63.00 inches Body Temperature 2020-05-27 13:31:00 98.50 degrees Heart Rate 2020-05-27 13:31:00 58.00 /min Respiratory Rate 2020-05-27 13:31:00 16.00 /min BP Systolic 2020-03-27 15:00:00 168 mm[Hg] BP Diastolic 2020-03-27 15:00:00 74 mm[Hg] Weight Measured 2020-03-27 15:00:00 106.60 pounds Height Measured 2020-03-27 15:00:00 63.00 inches Body Temperature 2020-03-27 15:00:00 98.30 degrees Heart Rate 2020-03-27 15:00:00 85.00 /min Respiratory Rate 2020-03-27 15:00:00 16.00 /min BP Systolic 2020-03-18 10:34:00 173 mm[Hg] BP Diastolic 2020-03-18 10:34:00 80 mm[Hg] Weight Measured 2020-03-18 10:34:00 116.80 pounds Height Measured 2020-03-18 10:34:00 63.00 inches Body Temperature 2020-03-18 10:34:00 97.70 degrees Heart Rate 2020-03-18 10:34:00 60.00 /min Respiratory Rate 2020-03-18 10:34:00 16.00 /min BP Systolic 2020-02-07 09:34:00 135 mm[Hg] BP Diastolic 2020-02-07 09:34:00 76 mm[Hg] Weight Measured 2020-02-07 09:34:00 110.40 pounds Height Measured 2020-02-07 09:34:00 63.00 inches Body Temperature 2020-02-07 09:34:00 97.90 degrees Heart Rate 2020-02-07 09:34:00 65.00 /min Respiratory Rate 2020-02-07 09:34:00 16.00 /min BP Systolic 2019-09-17 09:20:00 191 mm[Hg] BP Diastolic 2019-09-17 09:20:00 71 mm[Hg] Weight Measured 2019-09-17 09:20:00 123.00 pounds Height Measured 2019-09-17 09:20:00 63.00 inches Body Temperature 2019-09-17 09:20:00 98.60 degrees Heart Rate 2019-09-17 09:20:00 80.00 /min Respiratory Rate 2019-09-17 09:20:00 BP Systolic 2019-06-01 15:25:00 125 mm[Hg] BP Diastolic 2019-06-01 15:25:00 77 mm[Hg] Weight Measured 2019-06-01 15:25:00 133.80 pounds Height Measured 2019-06-01 15:25:00 63.00 inches Body Temperature 2019-06-01 15:25:00 98.40 degrees Heart Rate 2019-06-01 15:25:00 92.00 /min Respiratory Rate 2019-06-01 15:25:00 18.00 /min BP Systolic 2019-03-14 15:38:00 110 mm[Hg] BP Diastolic 2019-03-14 15:38:00 68 mm[Hg] Weight Measured 2019-03-14 15:38:00 127.00 pounds Height Measured 2019-03-14 15:38:00 63.00 inches Body Temperature 2019-03-14 15:38:00 97.90 degrees Heart Rate 2019-03-14 15:38:00 90.00 /min Respiratory Rate 2019-03-14 15:38:00 19.00 /min Procedures Procedure Date / Time Performing Clinician Source Performed INSURANCE CORRESPONDENCE 2022-03-26 05:01:00 Doctor Nellie, [facility] FLU 2022-03-17 20:02:18 [facility]om[facility] VACC(),65+YR,0.5 [facility] [facility] ML,IM,ADJUVANTED,QUAD(FLU AD) REFERRAL- 2022-02-25 05:01:00 [facility] REQUEST[facility]RESPONSE [facility] ECG 12-LEAD 2021-05-27 16:19:00 Marlee Yang [facility] EXTERNAL PROVIDER RECORDS 2021-05-26 06:01:00 Doctor Nellie, [facility] PHOSPHORUS 2021-05-13 10:26:00 [facility] MAGNESIUM 2021-05-13 10:26:00 [facility] BASIC METABOLIC PANEL 2021-05-13 10:26:00 Ramon estefany [facility] (NA, K, CL, CO2, GLUCOSE, Medica l Branch BUN, CREATININE, CA) CBC WITH DIFF 2021-05-13 10:26:00 Yris Navarro [facility] CBC WITHOUT DIFF 2021-05-12 21:41:00 Jennifer [facility] PHOSPHORUS 2021-05-12 14:58:00 [facility] MAGNESIUM 2021-05-12 14:58:00 [facility] BASIC METABOLIC PANEL 2021-05-12 14:58:00 Navarro estefany [facility] (NA, K, CL, CO2, GLUCOSE, Medica l Branch BUN, CREATININE, CA) CBC WITH DIFF 2021-05-12 11:32:00 [facility] CBC WITHOUT DIFF 2021-05-11 23:46:00 [facility] 2021-05-11 23:46:00 [facility] WITHOUT [facility]FF 2021-05-11 17:40:00 [facility] CBC WITHOUT DIFF 2021-05-11 17:40:00 Yris Navarro [facility] PHOSPHORUS 2021-05-11 12:18:00 [facility] MAGNESIUM 2021-05-11 12:18:00 [facility] BASIC METABOLIC PANEL 2021-05-11 12:18:00 [facility], K, CL, CO2, GLUCOSE, Medica l Branch BUN, CREATININE, CA) PHOSPHORUS 2021-05-11 12:18:00 [facility] MAGNESIUM 2021-05-11 12:18[facility] 2021-05-11 12:18[facility], K, CL, CO2, GLUCOSE, Medica l Branch BUN, CREATININE, CA) CBC WITH DIFF 2021-05-11 10:51:00 Ramon [facility] CBC WITH DIFF 2021-05-11 10:51:00 Ramon [facility] CBC WITHOUT DIFF 2021-05-11 02:51:00 [facility] WITHOUT [facility]FF 2021-05-11 02:51:00 [facility] FL TIME OR 2021-05-11 01:00:00 [facility] (NON-REPORTABLE) Medical Branch FL TIME OR 2021-05-11 01:00:00 Rodas [facility] (NON-REPORTABLE) [facility] Branch ARTERIOGRAM 2021-05-10 [facility]:50[facility]05[facility]10 [facility] NOW RAPID 2021-05-10 19:38:00 Gricelda [facility] TESTING) [facility] LAB ONLY COVID 2021-05-10 19:38:[facility] COVID-19 (ID NOW RAPID 2021-05-10 19:38:00 Gricelda [facility] TESTING) [facility] LAB ONLY COVID 2021-05-10 19:38[facility]00 [facility] CBC WITHOUT DIFF 2021-05-10 15:22:00 Clark Hawley [facility] CBC WITHOUT DIFF 2021-05-10 15:22:00 Clark Hawley [facility] MAGNESIUM 2021-05-10 07:26:00 Kim Ambrocio [facility] BASIC METABOLIC PANEL 2021-05-10 07:26:00 Kim Ambrocio [facility] (NA, K, CL, CO2, GLUCOSE, Medica l Branch BUN, CREATININE, CA) CBC WITH DIFF 2021-05-10 07:26:00 Kim Ambrocio [facility] MAGNESIUM 2021-05-10 07:26:00 Kim Ambrocio [facility] BASIC METABOLIC PANEL 2021-05-10 07:26:00 Kim Ambrocio [facility] (NA, K, CL, CO2, GLUCOSE, Medica l Branch BUN, CREATININE, CA) CBC WITH DIFF 2021-05-10 07:26:00 Kim Ambrocio [facility] CBC WITHOUT DIFF 2021-05-10 02:05:00 Flavia Meneses [facility] CBC WITHOUT DIFF 2021-05-10 02:05:00 Gideon [facility] BASIC METABOLIC PANEL 2021-05-09 12:43:00 Neto Lindsay [facility] (NA, K, CL, CO2, GLUCOSE, Medica l Branch BUN, CREATININE, CA) BASIC METABOLIC PANEL 2021-05-09 12:43:00 Neto Lindsay [facility] (NA, K, CL, CO2, GLUCOSE, Medica l Branch BUN, CREATININE, CA) CBC WITH DIFF 2021-05-09 10:24:00 Clark Hawley [facility] CBC WITH DIFF 2021-05-09 10:24:00 Clark Hawley [facility] TRANSFUSE PACKED RBC 2021-05-09 06:39:00 Clark Hawley [facility] TRANSFUSE PACKED RBC 2021-05-09 06:39:00 Clark Hawley [facility] URINALYSIS 2021-05-09 06:27:00 Clark Hawley [facility] URINE DRUG (IMMUNOASSAY) 2021-05-09 06:27:00 Clark Hawley [facility] SCREEN W/O REFLEX URINALYSIS 2021-05-09 06:27:00 Clark Hawley [facility] URINE DRUG (IMMUNOASSAY) 2021-05-09 06:27:00 Clark Hawley [facility] SCREEN W/O REFLEX PREPARE PACKED RBC 2021-05-09 06:24:21 Clark Hawley [facility] PREPARE PACKED RBC 2021-05-09 06:24:21 Clark Hawley [facility] HB ABO GROUPING 2021-05-09 05:19:00 Clark Hawley [facility] HB ABO GROUPING 2021-05-09 05:19:00 Clark Hawley [facility] MAGNESIUM 2021-05-09 04:37:00 Clark Hawley [facility] FERRITIN SERUM 2021-05-09 04:37:00 Clark Hawley [facility] VITAMIN B12, LEVEL 2021-05-09 04:37:00 Clark Hawley [facility] FOLATE 2021-05-09 04:37:00 Clark Hawley [facility] TROPONIN I 2021-05-09 04:37:00 Clark Hawley [facility] HEPATIC FUNCTION PANEL 2021-05-09 04:37:00 Clark Hawley [facility] ([id number]) (ALB,T.PRO,BILI Medical Branch T,BU/BC,ALT,AST,ALK PHOS) BASIC METABOLIC PANEL 2021-05-09 04:37:00 Clark Hawley [facility] (NA, K, CL, CO2, GLUCOSE, Medica l Branch BUN, CREATININE, CA) IRON PANEL 2021-05-09 04:37:00 Clark Hawley [facility] CBC WITH DIFF 2021-05-09 04:37:00 Clark Hawley [facility] PROTHROMBIN TIME / INR 2021-05-09 04:37:00 Clark Hawley [facility] ACTIVATED PARTIAL 2021-05-09 04:37:00 Clark Hawley [facility] THRLAS [facility] FIBRINOGEN 2021-05-09 04:37:00 Clark Hawley [facility] HCV ANTIBODY 2021-05-09 04:37:00 Clark Hawley [facility] MAGNESIUM 2021-05-09 04:37:00 Clark Hawley [facility] FERRITIN SERUM 2021-05-09 04:37:00 Clark Hawley [facility] VITAMIN B12, LEVEL 2021-05-09 04:37:00 [facility] FOLATE 2021-05-09 04:37:00 Clark Hawley [facility] TROPONIN I 2021-05-09 04:37:00 Clark Hawley [facility] HEPATIC FUNCTION PANEL 2021-05-09 04:37:00 Clark Hawley [facility] ([id number]) (ALB,T.PRO,[facility] T,BU/BC,ALT,AST,ALK PHOS) BASIC METABOLIC PANEL 2021-05-09 04:37:00 Clark Hawley [facility] (NA, K, CL, CO2, GLUCOSE, Medica l Branch BUN, CREATININE, CA) IRON PANEL 2021-05-09 04:37:00 Clark Hawley [facility] CBC WITH DIFF 2021-05-09 04:37:00 Clark Hawley [facility] PROTHROMBIN TIME / INR 2021-05-09 04:37:00 Clark [facility] 2021-05-09 04:37:00 Clark Hawley [facility] THRMPLAS RAMA Medical Branch FIBRINOGEN 2021-05-09 04:37:00 Clark Hawley [facility] HCV ANTIBODY 2021-05-09 04:37:00 Clark Hawley [facility] HEPATITIS C VIRUS (HCV) 2021-05-09 04:37:00 [facility] NAAT Medical [facility] CT CHEST PULMONARY 2021-05-09 04:33:06 Clark Hawley [facility] ANGIOGRAM Medical [place] CT CHEST PULMONARY 2021-05-09 04:33:06 Clark Hawley [facility] ANGIOGRAM [facility] CT ABDOMEN PELVIS W 2021-05-09 04:33:01 Clark Hawley [facility] CONTRAST [facility] CT ABDOMEN PELVIS W 2021-05-09 04:33:01 Clark Hawley [facility] CONTRAST [facility] ECG 12-LEAD 2020-12-09 14:03:00 Marlee Yang [facility] CBC W/PLT COUNT & AUTO 2020-09-04 02:44:00 [facility] DIFFERENTIAL [place] BASIC METABOLIC PANEL (7) 2020-09-04 02:44:00 Alexandra Ewing [facility] MAGNESIUM 2020-09-04 02:44:00 Kaylin Alexandra [facility] PHOSPHORUS 2020-09-04 02:44:00 [facility] CBC W/PLT COUNT & AUTO 2020-09-03 04:32:00 [facility] DIFFERENTIAL Sc[place] BASIC METABOLIC PANEL (7) 2020-09-03 04:32:00 Alexandra Ewing [facility] I [facility] MAGNESIUM 2020-09-03 04:32:00 [facility] PHOSPHORUS 2020-09-03 04:32:00 Ewing [facility] CBC W/PLT COUNT & AUTO 2020-09-02 04:48:00 [facility] BASIC METABOLIC PANEL (7) 2020-09-02 04:48:00 Ewing [facility] MAGNESIUM 2020-09-02 04:48:00 Ewing [facility] PHOSPHORUS 2020-09-02 [facility]:48[facility]SE METER 2020-09-01 23:56:00 [facility] 2020-09-01 18:00:00 [facility] PCI 2020-09-01 16:26:00 [facility] POCT-GLUCOSE METER 2020-09-01 12:20:00 [facility] POCT-GLUCOSE METER 2020-09-01 12:02:00 [facility] APTT 2020-09-01 09:33:00 [facility]ie [facility] CBC (HEMOGRAM ONLY) 2020-09-01 04:08:00 [facility] BASIC METABOLIC PANEL (7) 2020-09-01 04:08:00 Jake [facility] MAGNESIUM 2020-09-01 04:08:[facility] 2020-09-01 04:08[facility] 2020-09-01 01:10:00 [facility] PREPARE LEUKO-REDUCED RBC 2020-08-31 23:54:00 Gabriel Gomez [facility] APTT 2020-08-31 15:24:00 Doniphan [facility] TROPONIN I 2020-08-31 06:15:00 Jake [facility] APTT 2020-08-31 06:15:00 [facility] CBC (HEMOGRAM ONLY) 2020-08-31 04:27:00 [facility] COMPREHENSIVE METABOLIC 2020-08-31 04:27:00 [facility] MAGN[facility]IUM 2020-08-31 04:27:00 [facility] PHOSPHORUS 2020-08-31 04:27:00 [facility] TROPONIN I 2020-08-31 00:02:00 [facility] 2020-08-30 22:00:00 [facility] 2D ECHO W/ DOPPLER 2020-08-30 15:56:28 [facility] PLATELET COUNT 2020-08-30 13:51:00 [facility] APTT 2020-08-30 13:51:00 [facility] OCCULT BLOOD, STOOL 2020-08-30 07:29:00 [facility] TROPONIN I 2020-08-30 05:01:00 [facility] LIPID PANEL 2020-08-30 05:01:00 [facility] B-TYPE NATRIURETIC FACTOR 2020-08-30 05:01:00 [facility] CBC W/PLT COUNT & AUTO 2020-08-30 05:01:00 [facility] BASIC METABOLIC PANEL (7) 2020-08-30 05:01:00 Jason [facility] MAGNESIUM 2020-08-30 05:01:00 Marlee Yang [facility] TRANSFUSE LEUKO-REDUCED 2020-08-30 04:29:41 Gabriel Gomez [facility] RED BLOOD CELLS Center RAPID DRUG SCREEN, URINE 2020-08-30 04:05:00 [facility] TYPE AND SCREEN, 2020-08-29 23:42:00 [facility] AUTOMATED Center PROTHROMBIN TIME/INR 2020-08-29 22:37:00 [facility] MAGNESIUM 2020-08-29 22:37:00 [facility] TROPONIN I 2020-08-29 22:37:00 [facility] CBC W/PLT COUNT & AUTO 2020-08-29 22:37:00 [facility] DIFFERENTIAL Center (MANUAL DIFFERENTIAL) 2020-08-29 22:37:00 [facility] BASIC METABOLIC PANEL (7) 2020-08-29 22:37:00 [facility] HEPATIC FUNCTION PANEL 2020-08-29 22:37:00 [facility] HEMOGLOBIN A1C 2020-08-29 22:37:00 [facility] ECG 12-LEAD 2020-08-29 22:24:57 Unknown, Hl7 [facility] CARDIAC CATH REPORT - 2020-08-29 00:00:00 Provider, Default [facility] SCAN Scanning Center REPORT OF PROCEDURE - 2020-08-29 00:00:00 Provider, Luh [facility] ENDOSCOPY SCAN Scanning Center REFERRAL- 2020-05-27 06:01:00 [facility]PONSE [facility] Plan of Care Planned Activity Planned Date Details Comments Source Future Scheduled 2023-08-31 Lipid panel (procedure) [facility] 00:00:00 [code = 00032569] Medical Ce nter Future Scheduled 2023-08-31 Lipid panel (procedure) [facility] 00:00:00 [code = [id number]] Medical Ce nter Future Scheduled 2023-08-31 Lipid panel (procedure) [facility] 00:00:00 [code = [id number]] Medical Ce nter Future Scheduled 2023-02-[address] [facility] 00:00:00 (Season Ended) [code = Medic al Center INFLUENZA VACCINE (Season Ended)] Future Scheduled 2023-02-[address] [facility] 00:00:00 (Season Ended) [code = Medic al Center INFLUENZA VACCINE (Season Ended)] Future Scheduled 2022-06-[address] [facility] 00:00:00 (12+) [code = Medical Center DEPRESSION SCREENING (12+)] Future Scheduled 2022-06-06 FALLS RISK SCREENING [facility] 00:00:00 [code = FALLS RISK Medical C enter SCREENING] Future Scheduled 2022-06-[address] [facility] 00:00:00 (12+) [code = Medical Center DEPRESSION SCREENING (12+)] Future Scheduled 2022-06-06 FALLS RISK SCREENING [facility] 00:00:00 [code = FALLS RISK Medical C enter SCREENING] Future Scheduled 2022-06-[address] [facility] 00:00:00 (12+) [code = Medical Center DEPRESSION SCREENING (12+)] Future Scheduled 2022-06-06 FALLS RISK SCREENING [facility] 00:00:00 [code = FALLS RISK Medical C enter SCREENING] Future Scheduled 2022-06-[address] [facility] 00:00:00 (12+) [code = Medical Center DEPRESSION SCREENING (12+)] Future Scheduled 2022-06-06 FALLS RISK SCREENING [facility] 00:00:00 [code = FALLS RISK Medical C enter SCREENING] Future Scheduled 2022-05-[address] [facility] 00:00:00 [facility] Screening (12+) [code = Tobacco Cessation Counseling and Screening (12+)] Future Scheduled 2022-05-[address] [facility] 00:00:00 [facility] Medical Cente r Screening (12+) [code = Tobacco Cessation Counseling and Screening (12+)] Future Scheduled 2022-05-[address] [facility] 00:00:00 Counseling and Medical Cente r Screening (12+) [code = Tobacco Cessation Counseling and Screening (12+)] Future Scheduled 2022-05-[address] [facility] 00:00:00 Counseling and Medical Cente r Screening (12+) [code = Tobacco Cessation Counseling and Screening (12+)] Future Scheduled 2022-02-04 INFLUENZA VACCINE (#1) [facility]00 [code = INFLUENZA Medical Ce nter VACCINE (#1)] Future Scheduled 2022-02-04 INFLUENZA VACCINE (#1) [facility] 00:00:00 [code = INFLUENZA Medical Ce nter VACCINE (#1)] Future Scheduled 2022-02-04 INFLUENZA VACCINE (#1) [facility] 00:00:00 [code = INFLUENZA Medical Ce nter VACCINE (#1)] Future Scheduled 2022-02-04 INFLUENZA VACCINE (#1) [facility] 00:00:00 [code = INFLUENZA Medical Ce nter VACCINE (#1)] Future Scheduled 2021-08-30 Screening for malignant [facility] 00:00:00 neoplasm of colon Medical Ce nter (procedure) [code = 517730961] Future Scheduled 2021-08-30 Screening for malignant [facility] 00:00:00 neoplasm of colon Medical Ce nter (procedure) [code = 309899957] Future Scheduled 2021-08-30 Screening for malignant [facility] 00:00:00 neoplasm of colon Medical Ce nter (procedure) [code = 372497901] Future Scheduled 2021-08-30 Screening for malignant [facility] 00:00:00 neoplasm of colon Medical Ce nter (procedure) [code = 193535902] Future Scheduled 2021-08-30 Screening for malignant [facility] 00:00:00 neoplasm of colon Medical Ce nter (procedure) [code = 560958367] Future Scheduled 2021-08-30 Screening for malignant [facility] 00:00:00 neoplasm of colon Medical Ce nter (procedure) [code = 037876209] Future Scheduled 2021-08-30 Screening for malignant [facility] 00:00:00 neoplasm of colon Medical Ce nter (procedure) [code = 502493846] Future Scheduled 2021-08-30 Screening for malignant [facility] 00:00:00 neoplasm of colon Medical Ce nter (procedure) [code = 064615280] Future Scheduled 2021-08-30 Screening for malignant [facility] 00:00:00 neoplasm of colon Medical Ce nter (procedure) [code = 923361232] Future Scheduled 2021-08-30 Screening for malignant [facility] 00:00:00 neoplasm of colon Medical Ce nter (procedure) [code = 519492856] Future Scheduled 2021-08-30 Screening for malignant [facility] 00:00:00 neoplasm of colon Medical Ce nter (procedure) [code = 909737177] Future Scheduled 2021-08-30 Screening for malignant [facility] 00:00:00 neoplasm of colon Medical Ce nter (procedure) [code = 843455909] Future Scheduled 2021-08-30 Screening for malignant [facility] 00:00:00 neoplasm of colon Medical Ce nter (procedure) [code = 588116774] Future Scheduled 2021-08-30 Screening for malignant [facility] 00:00:00 neoplasm of colon Medical Ce nter (procedure) [code = 133569237] Future Scheduled 2021-06-[address] [facility] 00:00:00 (12+) [code = Medical Center DEPRESSION SCREENING (12+)] Future Scheduled 2021-06-06 FALLS RISK SCREENING [facility] 00:00:00 [code = FALLS RISK Medical C enter SCREENING] Future Scheduled 2021-06-[address] [facility] 00:00:00 (12+) [code = Medical Center DEPRESSION SCREENING (12+)] Future Scheduled 2021-06-06 FALLS RISK SCREENING [facility] 00:00:00 [code = FALLS RISK Medical C enter SCREENING] Future Scheduled 2021-02-04 INFLUENZA VACCINE (#1) [facility] 00:00:00 [code = INFLUENZA Medical Ce nter VACCINE (#1)] Future Scheduled 2021-02-04 INFLUENZA VACCINE (#1) [facility] 00:00:00 [code = INFLUENZA Medical Ce nter VACCINE (#1)] Future Scheduled 2020-06-[address] [facility]:00 WELLNESS (YEAR 2 or Medical Center FIRST YEAR if no IPPE) [code = MEDICARE ANNUAL WELLNESS (YEAR 2 or FIRST YEAR if no IPPE)] Future Scheduled 2020-06-[address] [facility] 00:00:00 WELLNESS (YEAR 2 or Medical Center FIRST YEAR if no IPPE) [code = MEDICARE ANNUAL WELLNESS (YEAR 2 or FIRST YEAR if no IPPE)] Future Scheduled 2020-06-[address] [facility] 00:00:00 WELLNESS (YEAR 2 or Medical Center FIRST YEAR if no IPPE) [code = MEDICARE ANNUAL WELLNESS (YEAR 2 or FIRST YEAR if no IPPE)] Future Scheduled 2020-06-[address] [facility] 00:00:00 WELLNESS (YEAR 2 or Medical Center FIRST YEAR if no IPPE) [code = MEDICARE ANNUAL WELLNESS (YEAR 2 or FIRST YEAR if no IPPE)] Future Scheduled 2020-06-[address] [facility] 00:00:00 WELLNESS (YEAR 2 or Medical Center FIRST YEAR if no IPPE) [code = MEDICARE ANNUAL WELLNESS (YEAR 2 or FIRST YEAR if no IPPE)] Future Scheduled 2020-06-[address] [facility] 00:00:00 WELLNESS (YEAR 2 or Medical Center FIRST YEAR if no IPPE) [code = MEDICARE ANNUAL WELLNESS (YEAR 2 or FIRST YEAR if no IPPE)] Future Scheduled 2020-06-[address] [facility] 00:00:00 WELLNESS (YEAR 2 or Medical Center FIRST YEAR if no IPPE) [code = MEDICARE ANNUAL WELLNESS (YEAR 2 or FIRST YEAR if no IPPE)] Future Scheduled 2020-06-[address] [facility] 00:00:00 WELLNESS (YEAR 2 or Medical Center FIRST YEAR if no IPPE) [code = MEDICARE ANNUAL WELLNESS (YEAR 2 or FIRST YEAR if no IPPE)] Future Scheduled 2020-06-[address] [facility] 00:00:00 (12+) [code = Medical Center DEPRESSION SCREENING (12+)] Future Scheduled 2020-06-[address] [facility] 00:00:00 (12+) [code = Medical Center DEPRESSION SCREENING (12+)] Future Scheduled 2006 SHINGLES VACCINES ([address] [facility] 00:00:00 2) [code = SHINGLES Medical Center VACCINES (1 of 2)] Future Scheduled 2006 SHINGLES VACCINES ([address] [facility] 00:00:00 2) [code = SHINGLES Medical Center VACCINES (1 of 2)] Future Scheduled 2006 SHINGLES VACCINES ([address] [facility] 00:00:00 2) [code = SHINGLES Medical Center VACCINES (1 of 2)] Future Scheduled 2006 SHINGLES VACCINES ([address] [facility] 00:00:00 2) [code = SHINGLES Medical Center VACCINES (1 of 2)] Future Scheduled 2006 SHINGLES VACCINES ([address] [facility] 00:00:00 2) [code = SHINGLES Medical Center VACCINES (1 of 2)] Future Scheduled 2006 SHINGLES VACCINES ([address] [facility] 00:00:00 2) [code = SHINGLES Medical Center VACCINES (1 of 2)] Future Scheduled 2006 SHINGLES VACCINES ([address] [facility] 00:00:00 2) [code = SHINGLES Medical Center VACCINES (1 of 2)] Future Scheduled 2006 SHINGLES VACCINES ([address] [facility] 00:00:00 2) [code = SHINGLES Medical Center VACCINES (1 of 2)] Future Scheduled 1977 Screening for malignant [facility] 00:00:00 neoplasm of cervix Medical C enter (procedure) [code = 978354151] Future Scheduled 1977 Screening for malignant [facility] 00:00:00 neoplasm of cervix Medical C enter (procedure) [code = 043263731] Future Scheduled 1977 Screening for malignant [facility] 00:00:00 neoplasm of cervix Medical C enter (procedure) [code = 954855686] Future Scheduled 1975 DTAP/TDAP/TD [facility]ACCINES [facility]:00 (1 - Tdap) [code = Medical C enter DTAP/TDAP/TD VACCINES (1 - Tdap)] Future Scheduled 1975 DTAP/TDAP/TD VACCINES [facility] 00:00:00 (1 - Tdap) [code = Medical C enter DTAP/TDAP/TD VACCINES (1 - Tdap)] Future Scheduled 1975 DTAP/TDAP/TD VACCINES [facility] 00:00:00 (1 - Tdap) [code = Medical C enter DTAP/TDAP/TD VACCINES (1 - Tdap)] Future Scheduled 1975 DTAP/TDAP/TD VACCINES [facility] 00:00:00 (1 - Tdap) [code = Medical C enter DTAP/TDAP/TD VACCINES (1 - Tdap)] Future Scheduled 1975 DTAP/TDAP/TD VACCINES [facility] 00:00:00 (1 - Tdap) [code = Medical C enter DTAP/TDAP/TD VACCINES (1 - Tdap)] Future Scheduled 1975 DTAP/TDAP/TD VACCINES [facility] 00:00:00 (1 - Tdap) [code = Medical C enter DTAP/TDAP/TD VACCINES (1 - Tdap)] Future Scheduled 1975 DTAP/TDAP/TD VACCINES [facility] 00:00:00 (1 - Tdap) [code = Medical C enter DTAP/TDAP/TD VACCINES (1 - Tdap)] Future Scheduled 1975 DTAP/TDAP/TD VACCINES [facility] 00:00:00 (1 - Tdap) [code = Medical C enter DTAP/TDAP/TD VACCINES (1 - Tdap)] Future Scheduled 1974 HEPATITIS C [facility]CRE[facility]ING [facility]:00:00 [code = HEPATITIS C Medical Center SCREENING] Future Scheduled 1974 HEPATITIS C [facility]:00:00 [code = HEPATITIS C Medical Center SCREENING] Future Scheduled 1974 HEPATITIS C [facility]ING [facility]:00:00 [code = HEPATITIS C Medical Center SCREENING] Future Scheduled 1974 HEPATITIS C [facility]:00:00 [code = HEPATITIS C Medical Center SCREENING] Future Scheduled 1974 HEPATITIS C [facility]:00:00 [code = HEPATITIS C Medical Center SCREENING] Future Scheduled 1974 HEPATITIS C [facility]:00:00 [code = HEPATITIS C Medical Center SCREENING] Future Scheduled 1974 HEPATITIS C [facility]ING [facility] 00:00:00 [code = HEPATITIS C Medical Center SCREENING] Future Scheduled 1974 HEPATITIS C [facility]:00:00 [code = HEPATITIS C Medical Center SCREENING] Future Scheduled 1968 COVID-19 VACCINE (1) [facility] 00:00:00 [code = COVID-[address] VACCINE (1)] Future Scheduled 1968 COVID-19 VACCINE (1) [facility] 00:00:00 [code = COVID-[address] VACCINE (1)] Future Scheduled [address] [facility] 00:00:00 Counseling and Medical Cente r Screening (12+) [code = Tobacco Cessation Counseling and Screening (12+)] Future Scheduled [address] [facility] 00:00:00 0-64 YRS (1 of 1 - Medical C enter PPSV23) [code = PNEUMOCOCCAL VACCINE 0-64 YRS (1 of 1 - PPSV23)] Future Scheduled [address] [facility] 00:00:00 0-64 YRS (1 of 1 - Medical C enter PPSV23) [code = PNEUMOCOCCAL VACCINE 0-64 YRS (1 of 1 - PPSV23)] Future Scheduled 1962 PNEUMOCOCCAL 65+ YRS ([address] [facility] 00:00:00 - PCV) [code = Medical Cente r PNEUMOCOCCAL 65+ YRS (1 - PCV)] Future Scheduled 1962 PNEUMOCOCCAL 65+ YRS ([address] [facility] 00:00:00 - PCV) [code = Medical Cente r PNEUMOCOCCAL 65+ YRS (1 - PCV)] Future Scheduled 1962 PNEUMOCOCCAL 65+ YRS ([address] [facility] 00:00:00 - PCV) [code = Medical Cente r PNEUMOCOCCAL 65+ YRS (1 - PCV)] Future Scheduled 1962 PNEUMOCOCCAL 65+ YRS ([address] [facility] 00:00:00 - PCV) [code = Medical Cente r PNEUMOCOCCAL 65+ YRS (1 - PCV)] Future Scheduled 1962 PNEUMOCOCCAL 65+ YRS ([address] [facility] 00:00:00 - PCV) [code = Medical Cente r PNEUMOCOCCAL 65+ YRS (1 - PCV)] Future Scheduled 1962 PNEUMOCOCCAL 65+ YRS ([address] [facility] 00:00:00 - PCV) [code = Medical Cente r PNEUMOCOCCAL 65+ YRS (1 - PCV)] Future Scheduled 1956 COVID-19 VACCINE (#1) [facility] 00:00:00 [code = COVID-[address] VACCINE (#1)] Future Scheduled 1956 COVID-19 VACCINE (#1) [facility] 00:00:00 [code = COVID-[address] VACCINE (#1)] Future Scheduled 1956 COVID-19 VACCINE (#1) [facility] 00:00:00 [code = COVID-[address] VACCINE (#1)] Future Scheduled 1956 COVID-19 VACCINE (#1) [facility] 00:00:00 [code = COVID-[address] VACCINE (#1)] Future Scheduled 1956 COVID-19 VACCINE (#1) [facility] 00:00:00 [code = COVID-[address] VACCINE (#1)] Future Scheduled 1956 COVID-19 VACCINE (#1) [facility]:00:00 [code = COVID-[address] VACCINE (#1)] Future Scheduled 1956 Screening for malignant [facility] 00:00:00 neoplasm of breast Medical C enter (procedure) [code = 254008728] Future Scheduled 1956 Screening for malignant [facility] 00:00:00 neoplasm of breast Medical C enter (procedure) [code = 402911379] Future Scheduled 1956 Screening for malignant [facility] 00:00:00 neoplasm of breast Medical C enter (procedure) [code = 497756171] Future Scheduled 1956 CT Colonography (combo) [facility] 00:00:00 [code = CT Colonography [facility] (combo)] Future Scheduled 1956 Screening for malignant [facility] 00:00:00 neoplasm of colon Medical Ce nter (procedure) [code = 655324094] Future Scheduled 1956 DXA SCAN [code = DXA [facility] 00:00:00 SCAN] [facility] Future Scheduled 1956 Screening for malignant [facility] 00:00:00 neoplasm of colon Medical Ce nter (procedure) [code = 326180916] Future Scheduled 1956 Sigmoidoscopy [code = [facility] Sigmoidoscopy] [facility] Future Scheduled 1956 Screening for malignant [facility] 00:00:00 neoplasm of breast Medical C enter (procedure) [code = 807198251] Future Scheduled 1956 CT Colonography (combo) [facility] 00:00:00 [code = CT Colonography [facility] (combo)] Future Scheduled 1956 Screening for malignant [facility] 00:00:00 neoplasm of colon Medical Ce nter (procedure) [code = 043054440] Future Scheduled 1956 DXA SCAN [code = DXA [facility] 00:00:00 SCAN] [facility] Future Scheduled 1956 Screening for malignant [facility] 00:00:00 neoplasm of colon Medical Ce nter (procedure) [code = 239500839] Future Scheduled 1956 Sigmoidoscopy [code = [facility] Sigmoidoscopy] [facility] Future Scheduled 1956 Screening for malignant [facility] 00:00:00 neoplasm of breast Medical C enter (procedure) [code = 036567906] Future Scheduled 1956 CT Colonography (combo) [facility] 00:00:00 [code = CT Colonography [facility] (combo)] Future Scheduled 1956 Screening for malignant [facility] 00:00:00 neoplasm of colon Medical Ce nter (procedure) [code = 587733156] Future Scheduled 1956 DXA SCAN [code = DXA [facility] 00:00:00 SCAN] [facility] Future Scheduled 1956 Screening for malignant [facility] 00:00:00 neoplasm of colon Medical Ce nter (procedure) [code = 093439481] Future Scheduled 1956 Sigmoidoscopy [code = [facility] Sigmoidoscopy] [facility] Future Scheduled 1956 Screening for malignant [facility] 00:00:00 neoplasm of breast Medical C enter (procedure) [code = 374759019] Future Scheduled 1956 CT Colonography (combo) [facility] 00:00:00 [code = CT Colonography [facility] (combo)] Future Scheduled 1956 Screening for malignant [facility] 00:00:00 neoplasm of colon Medical Ce nter (procedure) [code = 696414620] Future Scheduled 1956 DXA SCAN [code = DXA [facility] 00:00:00 SCAN] [facility] Future Scheduled 1956 Screening for malignant [facility] 00:00:00 neoplasm of colon Medical Ce nter (procedure) [code = 604775381] Future Scheduled 1956 Sigmoidoscopy [code = [facility] Sigmoidoscopy] [facility] [place] Future Scheduled 1956 Screening for malignant [facility] 00:00:00 neoplasm of breast Medical C enter (procedure) [code = 518815903] Future Scheduled 1956 CT Colonography (combo) [facility] 00:00:00 [code = CT Colonography [facility] (combo)] Future Scheduled 1956 Screening for malignant [facility] Test 00:00:00 neoplasm of colon Medical Ce nter (procedure) [code = 077261604] Future Scheduled 1956 DXA SCAN [code = DXA [facility] Test 00:00:00 SCAN] [facility] Future Scheduled 1956 Screening for malignant [facility] Test 00:00:00 neoplasm of colon Medical Ce nter (procedure) [code = 743606356] Future Scheduled 1956 Sigmoidoscopy [facility]code = [facility]] [facility] Future Scheduled 1956 Screening for malignant [facility] Test 00:00:00 neoplasm of breast Medical C enter (procedure) [code = 648952206] Future Scheduled 1956 CT Colonography (combo) [facility] Test 00:00:00 [code = CT Colonography [facility] (combo)] Future Scheduled 1956 Screening for malignant [facility] Test 00:00:00 neoplasm of colon Medical Ce nter (procedure) [code = 232068645] Future Scheduled 1956 DXA SCAN [code = DXA [facility] Test 00:00:00 SCAN] [facility] Future Scheduled 1956 Screening for malignant [facility] Test 00:00:00 neoplasm of colon Medical Ce nter (procedure) [code = 227820698] Future Scheduled 1956 Sigmoidoscopy [facility]code = [facility]] [facility] Goal Plan of Care Note [code = 44322-0] Goal Plan of Care Note [code = 39248-9] Goal Plan of Care Note [code = 92595-1] Goal Plan of Care Note [code = 45094-2] Goal Plan of Care Note [code = 58873-1] Goal Plan of Care Note [code = 26415-7] Goal Plan of Care Note [code = 57040-0] Goal Plan of Care Note [code = 01945-5] Goal Plan of Care Note [code = 37611-4] Goal Plan of Care Note [code = 61736-1] Goal Plan of Care Note [code = 55917-6] Goal Plan of Care Note [code = 44489-8] Goal Plan of Care Note [code = 28978-5] Goal Plan of Care Note [code = 37467-4] Goal Plan of Care Note [code = 61745-4] Goal Plan of Care Note [code = 74335-9] Goal Plan of Care Note [code = 45166-1] Goal Plan of Care Note [code = 14316-8] Goal Plan of Care Note [code = 70578-1] Goal Plan of Care Note [code = 08202-8] Goal Plan of Care Note [code = 87197-6] Goal Plan of Care Note [code = 74101-5] Goal Plan of Care Note [code = 49900-4] Goal Plan of Care Note [code = 26087-4] Goal Plan of Care Note [code = 51501-2] Goal Plan of Care Note [code = 90893-3] Goal Plan of Care Note [code = 32009-5] Goal Plan of Care Note [code = 60403-6] Goal Plan of Care Note [code = 43248-0] Goal Plan of Care Note [code = 83215-6] Goal Plan of Care Note [code = 77319-1] Goal Plan of Care Note [code = 66765-5] Goal Plan of Care Note [code = 71642-4] Goal Plan of Care Note [code = 63727-6] Goal Plan of Care Note [code = 34085-5] Goal Plan of Care Note [code = 83475-0] Goal Plan of Care Note [code = 85563-7] Goal Plan of Care Note [code = 52478-3] Goal Plan of Care Note [code = 47721-6] Goal Plan of Care Note [code = 43423-9] Goal Plan of Care Note [code = 80969-4] Goal Plan of Care Note [code = 02776-8] Goal Plan of Care Note [code = 04952-2] Goal Plan of Care Note [code = 03702-7] Goal Plan of Care Note [code = 51079-2] Goal Plan of Care Note [code = 95112-8] Goal Plan of Care Note [code = 41374-5] Goal Plan of Care Note [code = 42450-3] Goal Plan of Care Note [code = 14011-7] Goal Plan of Care Note [code = 65662-3] Goal Plan of Care Note [code = 29555-1] Goal Plan of Care Note [code = 09703-3] Goal Plan of Care Note [code = 69722-5] Goal Plan of Care Note [code = 62035-2] Goal Plan of Care Note [code = 17875-9] Goal Plan of Care Note [code = 54645-7] Goal Plan of Care Note [code = 33894-8] Goal Plan of Care Note [code = 89811-8] Goal Plan of Care Note [code = 96957-7] Goal Plan of Care Note [code = 53067-0] Goal Plan of Care Note [code = 73288-6] Goal Plan of Care Note [code = 88253-2] Goal Plan of Care Note [code = 11446-9] Goal Plan of Care Note [code = 41813-8] Goal Plan of Care Note [code = 04493-7] Goal Plan of Care Note [code = 02805-8] Goal Plan of Care Note [code = 61061-4] Goal Plan of Care Note [code = 26502-9] Goal Plan of Care Note [code = 14952-1] Goal Plan of Care Note [code = 14884-3] Goal Plan of Care Note [code = 34483-7] Goal Plan of Care Note [code = 14971-2] Goal Plan of Care Note [code = 14151-3] Goal Plan of Care Note [code = 81988-7] Goal Plan of Care Note [code = 39180-9] Goal Plan of Care Note [code = 90456-5] Goal Plan of Care Note [code = 65407-5] Goal Plan of Care Note [code = 82166-8] Goal Plan of Care Note [code = 98353-6] Goal Plan of Care Note [code = 10794-6] Goal Plan of Care Note [code = 08297-7] Goal Plan of Care Note [code = 64100-3] Goal Plan of Care Note [code = 64655-5] Goal Plan of Care Note [code = 34126-8] Goal Plan of Care Note [code = 71297-4] Goal Plan of Care Note [code = 85113-9] Goal Plan of Care Note [code = 79771-4] Goal Plan of Care Note [code = 62048-1] Goal Plan of Care Note [code = 97888-1] Goal Plan of Care Note [code = 73544-9] Goal Plan of Care Note [code = 84538-6] Goal Plan of Care Note [code = 44273-8] Goal Plan of Care Note [code = 99383-6] Goal Plan of Care Note [code = 04174-1] Goal Plan of Care Note [code = 85132-9] Goal Plan of Care Note [code = 18927-9] Goal Plan of Care Note [code = 73481-4] Goal Plan of Care Note [code = 18365-3] Goal Plan of Care Note [code = 72759-6] Goal Plan of Care Note [code = 79213-9] Goal Plan of Care Note [code = 45382-7] Goal Plan of Care Note [code = 36753-7] Goal Plan of Care Note [code = 66739-2] Goal Plan of Care Note [code = 64188-0] Goal Plan of Care Note [code = 49774-5] Goal Plan of Care Note [code = 78843-7] Goal Plan of Care Note [code = 31817-8] Goal Plan of Care Note [code = 41778-9] Goal Plan of Care Note [code = 74878-9] Goal Plan of Care Note [code = 25841-1] Goal Plan of Care Note [code = 76587-8] Goal Plan of Care Note [code = 38973-1] Goal Plan of Care Note [code = 94571-9] Goal Plan of Care Note [code = 36908-3] Goal Plan of Care Note [code = 00008-0] Goal Plan of Care Note [code = 25768-7] Goal Plan of Care Note [code = 76045-1] Goal Plan of Care Note [code = 41033-5] Goal Plan of Care Note [code = 45837-5] Goal Plan of Care Note [code = 59058-2] Goal Plan of Care Note [code = 46863-3] Goal Plan of Care Note [code = 21692-4] Goal Plan of Care Note [code = 97763-6] Goal Plan of Care Note [code = 12390-7] Goal Plan of Care Note [code = 82377-7] Goal Plan of Care Note [code = 16710-3] Goal Plan of Care Note [code = 20633-6] Goal Plan of Care Note [code = 81424-7] Goal Plan of Care Note [code = 20355-0] Goal Plan of Care Note [code = 75088-0] Goal Plan of Care Note [code = 05411-0] Goal Plan of Care Note [code = 03226-5] Goal Plan of Care Note [code = 78086-6] Goal Plan of Care Note [code = 47140-9] Goal Plan of Care Note [code = 38428-0] Goal Plan of Care Note [code = 23998-8] Goal Plan of Care Note [code = 73930-6] Goal Plan of Care Note [code = 56043-2] Goal Plan of Care Note [code = 78627-3] Goal Plan of Care Note [code = 15621-9] Goal Plan of Care Note [code = 46837-2] Goal Plan of Care Note [code = 76135-0] Goal Plan of Care Note [code = 09073-9] Goal Plan of Care Note [code = 36925-3] Goal Plan of Care Note [code = 84440-0] Goal Plan of Care Note [code = 63991-5] Goal Plan of Care Note [code = 65881-0] Goal Plan of Care Note [code = 46727-9] Goal Plan of Care Note [code = 06304-8] Goal Plan of Care Note [code = 05251-0] Goal Plan of Care Note [code = 51479-8] Goal Plan of Care Note [code = 19354-2] Goal Plan of Care Note [code = 37774-2] Goal Plan of Care Note [code = 57130-6] Goal Plan of Care Note [code = 18831-7] Goal Plan of Care Note [code = 40694-7] Goal Plan of Care Note [code = 12636-5] Goal Plan of Care Note [code = 77317-3] Goal Plan of Care Note [code = 97460-7] Goal Plan of Care Note [code = 28846-1] Goal Plan of Care Note [code = 24041-9] Goal Plan of Care Note [code = 99885-5] Goal Plan of Care Note [code = 74424-8] Goal Plan of Care Note [code = 58730-8] Goal Plan of Care Note [code = 56625-7] Goal Plan of Care Note [code = 38161-6] Goal Plan of Care Note [code = 54953-6] Goal Plan of Care Note [code = 13521-1] Goal Plan of Care Note [code = 31321-6] Goal Plan of Care Note [code = 18186-1] Goal Plan of Care Note [code = 99798-3] Goal Plan of Care Note [code = 19003-9] Goal Plan of Care Note [code = 69750-7] Goal Plan of Care Note [code = 36565-4] Goal Plan of Care Note [code = 49633-0] Goal Plan of Care Note [code = 20733-8] Goal Plan of Care Note [code = 14499-0] Goal Plan of Care Note [code = 87719-3] Goal Plan of Care Note [code = 86833-3] Goal Plan of Care Note [code = 47975-4] Goal Plan of Care Note [code = 14724-4] Goal Plan of Care Note [code = 14972-3] Goal Plan of Care Note [code = 91126-5] Goal Plan of Care Note [code = 87868-1] Goal Plan of Care Note [code = 55317-9] Goal Plan of Care Note [code = 00272-4] Goal Plan of Care Note [code = 39493-2] Goal Plan of Care Note [code = 23609-0] Goal Plan of Care Note [code = 47056-3] Goal Plan of Care Note [code = 14269-6] Encounters Start End Encounter Admission Attending Care Care Encounter Source Date/Time Date/Time Type Type Clinicians Facility Department ID 2021-03-14 Inpatient ER [facility] Cardiology [id number] 10:04:36 [facility] 2020-08-29 Inpatient ER JAKE, [facility] Cardiology [id number] [facility] 21:16:00 GASTON 2019-12-24 Inpatient ER NALAM, [facility] Gastro [id number] [facility] 21:00:00 HARRIET 2022-09-02 2022-09-02 Outpatient JENNIFER RODRIGUEZ [id number] Alexei 14:56:45 14:56:45 0330 F Fracisco 2022-06-08 2022-06-08 Outpatient JENNIFER RODRIGUEZ [id number] Alexei 11:09:30 11:09:30 0103 F Fracisco 2022-05-27 2022-05-27 Outpatient Heena GALAN [facility] [id number] Univers 11:00:00 11:00:00 [facility] 2022-05-21 2022-05-21 Outpatient Heena GALAN [facility] [id number] Univers 08:45:00 09:33:35 [facility] 2022-05-21 2022-05-21 [facility] Adama [facility] 1.2.840.114 [id number] Univers 08:45:00 09:33:35 Visit [facility] 350.1.13.10 it y [facility] 4.2.7.2.686 Jax as JOE?BLEA [phone] De lizbeth RUIZ [address] [place] [address] 2022-05-05 2022-05-05 Outpatient R ADAMA [facility] [id number] Univers 13:00:00 13:00:00 PIPO ity [facility] 2022-04-19 2022-04-19 [facility] [id number] Univers 16:15:00 16:15:00 [facility] 2022-04-14 2022-04-14 [facility] [id number] Univers 14:15:00 14:15:00 [facility] 2022-04-07 2022-04-07 [facility] [id number] Univers 13:15:00 13:15:00 [facility] 2022-04-07 2022-04-07 Telephone [facility] 1.2.469.133 [id number] Univers 00:00:00 00:00:00 [facility] 350.1.13.10 it y of [place] 4.2.7.2.686 Jax as JOE?BLEA [phone] De lizbeth STEELE[address] 2022-03-26 2022-03-26 Orders Doctor ZION 1.2.840.114 [id number] Univers 00:00:00 00:00:00 Only Unassigned, AGUSTIN 350.1.13.10 ity of [place] [facility] 4.2.7.2.686 Jax as [phone] [address] 2022-03-23 2022-03-23 [facility] 1.2.840.114 [id number] Univers 00:00:00 00:00:00 Juan Ramon HOOKER 350.1.13.10 i ty of [place] PROF[place] [phone] De lizbeth ROJO [address] [place] [address] 2022-03-17 2022-03-17 Outpatient R MARLA [facility] [id number] Univers 14:20:00 23:59:00 JUAN RAMON itsylwia of [facility] 2022-03-17 2022-03-17 Imm/Inj Nurse, Lei Mustafa [facility] 1.2.840.114 [id number] Univers 15:00:00 15:20:00 Visit Juan Ramon Gutiérrez [facility] 350.1.13.10 ity of [place] 4.2.7.2.686 Jax as JOE?BLEA [phone] [facility] JOSEPH [address] [place] [address] MEDICAL OFFICE BUILDING 2022-03-17 2022-03-17 Office Marla [facility] 1.2.490.302 [id number] [facility] 14:30:00 14:51:15 Visit Juan Ramon Aguilar [facility] 350.1.13.10 it y of [place] 4.2.7.2.686 Jax as JOE?BLEA [phone] [facility] [address] OFFICE [facility] 2022-02-25 2022-02-25 Outpatient 3wnrf1a0- [id number] 2f oab2w5-4 00:00:00 00:00:00 Visit 5446-4adf 446-4adf-8 -8ccf-338 cc-470866 072381h2z 425a4a 2022-02-25 2022-02-25 Orders Doctor ZION 1.2.840.114 [id number] Univers 00:00:00 00:00:00 Only Unassigned, AGUSTIN 350.1.13.10 ity of [place] [facility] 4.2.7.2.686 Jax as [phone] [address] 2022-02-12 2022-02-12 Outpatient gs74dqv1- [id number] bb 53biq1-q 00:00:00 00:00:00 Visit dr76-0634 c47-1194-i -vw79-4p1 d78-2p483h 51m0ej767 1bt761 2022-01-20 2022-01-20 Outpatient d61c5997- [id number] f7 1n4404-3 00:00:00 00:00:00 Visit 2e43-8406 h45-6764-1 -861f-51d 61f-51db76 d4920h1gh 60d1de 2021-06-15 2021-06-15 Outpatient ANGIE, [facility] [id number] 00:00:00 00:00:00 LUIS ALBERTO [facility] 2021-05-26 2021-05-26 [facility] [id number] 14:00:00 14:21:24 Visit Marlee [facility] 2021-05-26 2021-05-26 Travel [facility] [id number] [facility] 00:[facility]00 00:00:00 [facility] 2021-05-26 2021-05-26 Orders Doctor ZION 1.2.840.114 [id number] Univers 00:00:00 00:00:00 Only Unassigned, AGUSTIN 350.1.13.10 ity of [place] [facility] 4.2.7.2.686 Jax as [phone] [facility] 009 Branch 2021-05-14 2021-05-14 Transition ILYA Parker 1.2.840.114 [id number] Univers 00:00:00 00:00:00 of Care Americo DRAKE 350.1.13.10 ity of [place]2.[place].2.[place] [phone] [facility] 403 Branch 2021-05-08 2021-05-13 Hospital Dameon Lucas 1.2. 840.114 [id number] Univers 19:37:00 13:22:00 Encounter [place] 350.1.13. 10 ity of Myah Barlow [facility] 4.2.7.2.686 [place] [phone] [facility] 091 Branch 2021-05-08 2021-05-13 Inpatient U LISE [facility] STR [id number] Univers 19:37:00 13:22:00 MYAH ity of [facility] 2021-05-10 2021-05-10 Surgery ARIADNA [place] 1.2.840.114 [id number] Univers 13:35:00 16:11:00 Veena VELEZ 350.1.13.10 ity of [facility] 4.2.7.2.686 Jax as [phone] [facility] 103 Branch 2020-12-05 2020-12-05 Office Galen, [facility] [id number] 14:54:56 15:04:23 Visit [facility] 2020-12-05 2020-12-05 Travel [facility] [id number] [facility] 00:00:00 00:00:00 [facility] 2020-11-13 2020-11-13 Outpatient GALEN, [facility] [id number] 00:00:00 00:00:00 [facility] 2020-11-06 2020-11-06 Outpatient GALEN, [facility] [id number] 00:00:00 00:00:00 [facility] 2020-10-23 2020-10-23 Outpatient GALEN, [facility] [id number] 00:00:00 00:00:00 [facility] 2020-10-21 2020-10-21 Outpatient GALEN, [facility] [id number] 00:00:00 00:00:00 [facility] 2020-08-29 2020-09-04 [facility] MISA Gaston Joseph [facility] [id number] [facility] 21:16:00 12:30:00 Encounter Hermann Maria [facility] 2020-09-01 2020-09-01 [facility] [id number] 16:00:00 17:04:00 [facility] [place] 2020-08-30 2020-08-30 Travel [facility] [id number] [facility] 00:00:00 00:00:00 [facility] 2020-08-29 2020-08-29 Orders [facility] [id number] 00:00:00 00:00:00 [facility] 2020-06-25 2020-06-25 ZION Harris 1.2.840.114 [id number] Univers 00:00:00 00:00:00 (Out) Amarilys VELEZ 350.1.13.10 it y of HOSPITAL 4.2.7.2.686 Jax as [phone] [facility] 043 Branch 2020-05-27 2020-05-27 Orders Doctor ZION 1.2.840.114 [id number] Univers 00:00:00 00:00:00 Only Unassigned, AGUSTIN 350.1.13.10 ity of [place] [facility] 4.2.7.2.686 Jax as [phone] [facility] 009 Branch 2011-11-23 2011-11-23 Refill Guy [facility] 1.2.612.529 [id number] Univers 00:00:00 00:00:00 Anat CEDENO 350.1.13.10 i ty of [facility] 4.2.7.2.686 Jax as CLINIC - [phone] [address] Results Test Description Test Time Test Comments Results Result Comments Source VAGINAL PATHOGENS DNA PANEL 2022-09-03 14:51:14 Test Item Value Reference Range Interpretation Comme nts NGOC SPECIES (test code NEGATIVE NEGATIVE = ) G. VAGINALIS (test code = POSITIVE NEGATIVE A ) T. VAGINALIS (test code = NEGATIVE NEGATIVE N ote: The BD Affirm VPIII Microbial ) Identification Testis a DNA probe test intended for e in the detectionand identification of Ngoc species, Gardnerellavagi nalis and Trichomonas vaginalis nucle ic acid. [facility] has important patho logy staff changes effective 08/04. New pathology staff will provide uninterrupted, excellent patient care and clinical co nsultation. See URL: [email or web address]. UNLESS OTHERWISE INDIC ATED, ALL TESTING PERFORMED AT [facility], [facility]. [address] [place] [address] 4 [employer] SPECIALIST: VEENA JUNIOR M.D. CLIA NUMBER [id number] [facility] [place]. [id number] CBC W/AUTO DIFF WITH [id number] 10:13:12 Test Item Value Reference Range Interpretation Comments WBC (test code = 8.2 K/UL 3.5-11.0 1001) RBC (test code = 2.84 M/UL 3.80-5.40 L 1002) HEMOGLOBIN (test 6.4 G/DL 11.5-15.5 LL RESULTS RE CHECKED code = 1003) AND VERIFIED HEMATOCRIT (test 22.1 % 34.0-45.0 L code = 1004) MCV (test code = 77.8 fL 80.0-99.0 L 1005) MCH (test code = 22.5 PG 25.0-33.0 L 1006) MCHC (test code = 29.0 G/DL 31.0-36.0 L 1007) RDW (test code = 18.4 % 11.5-15.0 H 1038) NEUTROPHILS (test 62.0 % AUTOMATED code = 1008) DIFFERENTIAL CONFIRMED WITH MANUAL SLIDE REVIEW. LYMPHOCYTES (test 26.5 % code = 1010) MONOCYTES (test code 9.2 % = 1011) EOSINOPHILS (test 1.2 % code = 1012) BASOPHILS (test code 0.6 % = 1013) IMMATURE 0.5 % GRANULOCYTES (test code = 1036) NUCLEATED RBCS (test 0.0 /100 See_Comment [Autom ated message] code = 1065) WBC'S The system Pounce generated this result transmitted ref erence range: 0.0. The reference range was not used to int erpret this result as normal/abnormal . PLATELET COUNT (test 292 K/UL 130-400 code = 1015) ABSOLUTE NEUTROPHILS 5.08 K/UL 1.50-7.50 (test code = 1066) ABSOLUTE LYMPHOCYTES 2.17 K/UL 1.00-4.00 (test code = 1067) ABSOLUTE MONOCYTES 0.75 K/UL 0.20-1.00 (test code = 1068) ABSOLUTE EOSINOPHILS 0.10 K/UL 0.00-0.50 (test code = 1040) ABSOLUTE BASOPHILS 0.05 K/UL 0.00-0.20 (test code = 1069) ABS IMMATURE 0.04 K/UL 0.00-0.10 GRANULOCYTES (test code = 1020) ABS NUCLEATED RBCS 0.00 K/UL 0.00-0.11 (test code = 76813) COMMENTS (test code (NOTE) MODERAT E = 1016) ANISOCYTOSIS FE W ELLIPTOCYTES MO DERATE HYPOCHROMASIA SLIGHT MICROCYTOSIS SL IGHT POIKILOCYTOSIS SLIGHT POLYCHROMASIA F EW TARGET CELLS FE W TEAR DROP CELLS PLAT ELETS APPEAR NORMAL COMPREHENSIVE METABOLIC [id number] 06:14:54 Test Item Value Reference Range Interpretation Comments GLUCOSE (test code = 103 MG/DL 70-99 H 2216) BUN (test code = 5 MG/DL 8-23 L 2207) CREATININE (test 0.42 MG/DL 0.60-1.30 L code = 2214) eGFR (2020 CKD-EPI) 108 >60 (test code = 27938) ML/MIN/1.73 CALC BUN/CREAT (test 12 RATIO 6-28 code = 2235) SODIUM (test code = 137 MEQ/L 764-324 4073) POTASSIUM (test code 4.0 MEQ/L 3.5-5.4 = 2227) CHLORIDE (test code 103 MEQ/L 95-107 = 2214) CARBON DIOXIDE (test 20 MEQ/L 19-31 code = 2206) CALCIUM (test code = 8.6 MG/DL 8.5-10.5 2208) PROTEIN, TOTAL (test 6.7 G/DL 6.1-8.3 code = 222) ALBUMIN (test code = 3.2 G/DL 3.5-5.2 L 2200) CALC GLOBULIN (test 3.5 G/DL 1.9-3.7 code = 2240) CALC A/G RATIO (test 0.9 RATIO 1.0-2.6 L code = 2234) BILIRUBIN, TOTAL 0.5 MG/DL See_Comment [Automated message] (test code = 2207) The syste m which generated this result transmit diane reference range : <=1.2. The refe rence range was not u sed to interpret th is result as normal/abnormal . ALKALINE PHOSPHATASE 120 U/L 40-142 (test code = 2204) AST (test code = 46 U/L 9-40 H 2217) ALT (test code = 20 U/L 5-40 2218) LIPID [id number] 06:14:54 Test Item Value Reference Range Interpretation Comments CHOLESTEROL (test 144 MG/DL <200 code = 2210) TRIGLYCERIDES (test 75 MG/DL <150 code = 2232) HDL CHOLESTEROL (test 60 MG/DL >39 code = 2220) CALC LDL CHOL (test 68 MG/DL <100 NOTE: C ALCULATED LDL code = 2237) IS BASED ON AIMEE-HOWELL METHOD WHICHINCLUDES ADJUSTABLE TRIGLYCERIDE:VL DL CHOLESTEROL RAT IO.THIS FACTOR VARIES B Y MEASURED TRIGLY CERIDE AND NON-HDLCHOL ESTEROL CONCENTRATIONS WITH INCREASED CALCU LATED LDL SEENIN HIGH ER TRIGLYCERIDE OR LOWER NON-HDL SPECIME NS. FOR MOREINFORMATION , SEE CLIENT ANNOUNCE MENT AT [email or web address] [email or web address] LDL/HDL 1.13 RATIO <3.22 UNLESS O THERWISE (test code = 2238) INDICATED , ALL TESTING PERFORMED [facility], [facility]. [address] [place] [address] DEREJE CARIAS DIRECTOR: PRISCILA AJ M.D. IA NUMBER [id number] CAP ACCREDITATION N O. [id number] PAP TEST, THINPREP, [id number] 13:36:39 Test Item Value Reference Range Interpretation Comments SOURCE: (test code = Cervical/Endoc 8001) ervical SLIDES: (test code = 1 8011) LMP: (test code = SEE NOTE POST ELIZABETH PAUSAL 8059) SPECIMEN ADEQUACY: (NOTE) Christina carias for (test code = 43292) evaluati on. Endocervical cells/transform ation zone component present. INTERPRETATION: ASCUS/EPITH. A --------- (test code = 10524) ABNORMALITY; -------- SEE BELOW ------ ------- EPITHELIAL CELL ABNORMALITY Atypical squamo us cells of undete rmined significance (ASC-US)------- ------ ------ ------ INSPECTOR SHEET METAL PARTS: Leni (test code = 8101) Ever QC TECHNOLOGIST: Renetta Davis, (test code = 8111) SCT(ASCP) [facility] PATHOLOGIST Juana Ashby INTERPRETATION BY: Curtis Lora (test code = 8122) LOCATION: (test code (NOTE) Specime ns processed = 98412) and interpreted at [facility] , [address], [place] [address], Phone: , CLIA: [id number] CPT: (test code = (NOTE) 09919, 881 41 UNLESS 8140) OTHERWISE INDIC ATED, COMPUTER AIDED AND CYTOTECHNOLOGIS T SCREENING PERFO RMED. The Pap test is a screening test with an inherent, bu t low probability of error. Your patient sh ould be reminded to consult you immediately if she experiences any suspicious sign s or symptoms, regar dless of her Pap test result. An alte rnate report format containing imag es or consolidated pr ior Pap history is available as applicable. HPV HIGH RISK WITH GENOTYPE, [id number] 16:10:37 Test Item Value Reference Range Interpretation Comments HPV HIGH RISK INTERP POSITIVE NEGATIVE A (test code = 16592) HPV 16 (test code = POSITIVE A 65825) HPV 18 (test code = NEGATIVE 83011) HPV, HR, OTHER POSITIVE A Testing meth odology is GENOTYPES (test code real-ti me PCR utilizing = 32827) hydrolysis prob es with the [employer] 4800 system. The rosa elena t individually de tects genotypes 16 an d 18, as well as the oth er 12 high risk types (31,33,35,39,45 ,51,52,56 ,58,59,66,68). The expected result is negative. A neg ative result does not rule out the presence of HPV not included in the genotype set, a low leve l of infection or sp ecimen sampling error. UNLESS OTHERWISE INDIC ATED, ALL TESTING PERFORM ED AT[facility] LABOR[facility]IES, I NC. [address] [place] [address] LABORATORY DIRE CTOR: PRISCILA CHILDERS M.D. CLIA NUMBER [id number] [place] [id number] VAGINAL PATHOGENS DNA [id number] 15:05:42 Test Item Value Reference Range Interpretation Comments NGOC SPECIES (test NEGATIVE NEGATIVE code = 90224) G. VAGINALIS (test POSITIVE NEGATIVE A code = ) T. VAGINALIS (test NEGATIVE NEGATIVE UNLESS O THERWISE code = 43967) INDICATED, ALL TESTING PERFORMED [facility] PATHOLOGY FORMERLY [facility] [place], [facility]. [address] [place] [address] 4 LABORATORY DIRE CTOR: PRISCILA CHILDERS M.D. CLIA NUMBER [id number] [facility]. [id number] VAGINAL PATHOGENS DNA [id number] 00:00:00 Test Item Value Reference Range Interpretation Comments NGOC SPECIES (test code = ) NEGATIVE G. VAGINALIS (test code = 90577) POSITIVE T. VAGINALIS (test code = 00502) NEGATIVE VAGINAL PATHOGENS DNA [id number] 00:00:00 Test Item Value Reference Range Interpretation Comments NGOC SPECIES (test code = 75979) NEGATIVE G. VAGINALIS (test code = 69649) POSITIVE T. VAGINALIS (test code = 54280) NEGATIVE VAGINAL PATHOGENS DNA [id number] 00:00:00 Test Item Value Reference Range Interpretation Comments NGOC SPECIES (test code = ) NEGATIVE G. VAGINALIS (test code = 18163) POSITIVE T. VAGINALIS (test code = 57297) NEGATIVE VAGINAL PATHOGENS DNA [id number] 00:00:00 Test Item Value Reference Range Interpretation Comments NGOC SPECIES (test code = ) NEGATIVE G. VAGINALIS (test code = 98575) POSITIVE T. VAGINALIS (test code = 34135) NEGATIVE ECG 12 [id number] 16:19:00 Test Item Value Reference Range Interpretation Comments Lab Interpretation (test code = Abnormal 72757-9) [facility] (NA, K, CL, CO2, GLUCOSE, BUN, CREATININE, CA)2021-05-13 11:18:18 Test Item Value Reference Range Interpretation Comments NA (test code = 136 mmol/L 135-145 8471415861) K (test code = 3.7 mmol/L 3.5-5.0 5751018318) CL (test code = 105 mmol/L 98-108 1989416873) CO2 TOTAL (test code = 30 mmol/L 23-31 2673693106) AGAP (test code = 2-16 L 5465947885) BUN (test code = 7 mg/dL 7-23 7991189814) GLUCOSE (test code = 89 mg/dL 70-110 6412344812) CREATININE (test code = 0.41 mg/dL 0.50-1.04 L 3185580253) CALCIUM (test code = 7.9 mg/dL 8.6-10.6 L 0352714703) eGFR (test code = mL/min/1.73m2 2039611679) DIONI (test code = DIONI) Association of Glomerular Filtration Rate (GFR) and Staging of Kidney Disease* + --+ --+ ------+| GFR (mL/min/1.73 m2) ?| With Kidney Damage ?| ?Without Kidney Damage+ --------+ --------+ +| ?>90 ?| ?Stage one ?| ? Normal ?+ ---+ ---+ -------+| ?60-89 ?| ?Stage two ?| ? Decreased GFR ? + --+ --+ ------+| ?30-59 ?| ?Stage three ?| ? Stage three ? + --+ --+ ------+| ?15-29 ?| ?Stage four ? | ? Stage four ?+ ---+ ---+ -------+| ?<15 (or dialysis) ? ?| ?Stage five ? | ? Stage five ?+ ---+ ---+ -------+ *Each stage assumes the associated GFR level has been in effect for at least three months. ?Stages 1 to 5, with or without kidney disease, indicate chronic kidney disease. Notes: Determination of stages one and two (with eGFR >59mL/min/1.73 m2) requires estimation of kidney damage for at least three months as defined by structural or functional abnormalities of the kidney, manifested by either:Pathological abnormalities or Markers of kidney damage (including abnormalities in the composition of the blood or urine or abnormalities in imaging tests). Lab Interpretation Abnormal (test code = 63242-0) [facility] [id number] 11:18:18 Test Item Value Reference Range Interpretation Comments MAGNESIUM (test code = 0643078722) 1.7 mg/dL 1.7-2.4 Lab Interpretation (test code = Normal 78581-8) [facility] 11:18:18 Test Item Value Reference Range Interpretation Comments PHOSPHORUS (test code = 5539859459) 3.5 mg/dL 2.5-5.0 Lab Interpretation (test code = Normal 60063-0) [facility] WITH [id number] 10:46:13 Test Item Value Reference Range Interpretation Comments WBC (test code = See_Comment [Automated 6690-2) message] The sy stem which generated this result transmitted reference range : 4.30 - 11.10 10*3/?L. The reference range was not used to interpret this result as normal/abnormal . RBC (test code = See_Comment L [Automated 789-8) message] The sy stem which generated this result transmitted reference range : 3.93 - 5.25 10*6/?L. The reference range was not used to interpret this result as normal/abnormal . HGB (test code = 7.8 g/dL 11.6-15.0 L 718-7) HCT (test code = 26.1 % 35.7-45.2 L 4544-3) MCV (test code = 77.7 fL 80.6-95.5 L 787-2) MCH (test code = 23.2 pg 25.9-32.8 L 785-6) MCHC (test code = 29.9 g/dL 31.6-35.1 L 786-4) RDW-SD (test code = 63.9 fL 39.0-49.9 H 70384-3) RDW-CV (test code = 22.8 % 12.0-15.5 H 788-0) PLT (test code = See_Comment H [Automated 777-3) message] The sy stem which generated this result transmitted reference range : 166 - 358 10*3/ ?L. The reference r james was not used to interpret this result as normal/abnormal . MPV (test code = 9.8 fL 9.5-12.9 00245-1) NRBC/100 WBC (test See_Comment [Automat ed code = 6030813716) message] The system which generated this result transmitted reference range : 0.0 - 10.0 /100 WBCs. The refer ence range was not u sed to interpret th is result as normal/abnormal . NRBC x10^3 (test code <0.01 See_Comment [Auto mated = 7727833283) message] The s ystem which generated this result transmitted reference range : 10*3/?L. The reference range was not used to interpret this result as normal/abnormal . GRAN MAT (NEUT) % 66.9 % (test code = 770-8) IMM GRAN % (test code 0.30 % = 0648303699) LYMPH % (test code = 20.3 % 736-9) MONO % (test code = 10.1 % 5905-5) EOS % (test code = 2.0 % 713-8) BASO % (test code = 0.4 % 706-2) GRAN MAT x10^3(ANC) 4.69 10*3/uL 1.88-7.09 (test code = 6766084252) IMM GRAN x10^3 (test <0.03 0.00-0.06 code = 2232628667) LYMPH x10^3 (test code 1.42 10*3/uL 1.32-3.29 = 731-0) MONO x10^3 (test code 0.71 10*3/uL 0.33-0.92 = 742-7) EOS x10^3 (test code = 0.14 10*3/uL 0.03-0.39 711-2) BASO x10^3 (test code 0.03 10*3/uL 0.01-0.07 = 704-7) Lab Interpretation Abnormal (test code = 68202-2) [facility] WITHOUT [id number] 21:48:17 Test Item Value Reference Range Interpretation Comments WBC (test code = 6690-2) See_Comment [A utomated message] The system [employer] generated this result transmit diane reference range : 4.30 - 11.10 10*3/?L. The reference range was not used to interpret this result as normal/abnormal . RBC (test code = 789-8) See_Comment L [Au tomated message] The system [employer] generated this result transmit diane reference range : 3.93 - 5.25 10* 6/?L. The reference r james was not used to interpret this result as normal/abnormal . HGB (test code = 718-7) 7.7 g/dL 11.6-15.0 L HCT (test code = 4544-3) 25.8 % 35.7-45.2 L MCH (test code = 785-6) 23.3 pg 25.9-32.8 L MCV (test code = 787-2) 78.2 fL 80.6-95.5 L MCHC (test code = 786-4) 29.8 g/dL 31.6-35.1 L PLT (test code = 777-3) See_Comment H [Au tomated message] The system [facility] generated this result transmit diane reference range : 166 - 358 10*3/?L. The reference range was not used to interpret this result as normal/abnormal . MPV (test code = 10.2 fL 9.5-12.9 14246-9) RDW-CV (test code = 23.3 % 12.0-15.5 H 788-0) RDW-SD (test code = 64.7 fL 39.0-49.9 H 73327-9) NRBC x10^3 (test code = <0.01 See_Comment [Au tomated message] 6602833931) The system [facility] generated this result transmit diane reference range : 10*3/?L. The reference range was not used to interpret this result as normal/abnormal . NRBC/100 WBC (test code See_Comment [Au tomated message] = 3678908137) The system [facility] generated this result transmit diane reference range : 0.0 - 10.0 /100 WBC s. The reference r james was not used to interpret this result as normal/abnormal . IPF % (test code = 0672948382) Lab Interpretation (test Abnormal code = 44169-9) [facility] METABOLIC PANEL (NA, K, CL, CO2, GLUCOSE, BUN, CREATININE, CA)2021-05-12 15:31:30 Test Item Value Reference Range Interpretation Comments NA (test code = 137 mmol/L 135-145 4138541581) K (test code = 3.5 mmol/L 3.5-5.0 3178352668) CL (test code = 104 mmol/L 98-108 8888462124) CO2 TOTAL (test code = 31 mmol/L 23-31 4839746682) AGAP (test code = 2-16 8717391299) BUN (test code = 7 mg/dL 7-23 3750213380) GLUCOSE (test code = 88 mg/dL 70-110 9401134742) CREATININE (test code = 0.36 mg/dL 0.50-1.04 L 4681412974) CALCIUM (test code = 8.0 mg/dL 8.6-10.6 L 9405777477) eGFR (test code = mL/min/1.73m2 0785557517) DIONI (test code = DIONI) Association of Glomerular Filtration Rate (GFR) and Staging of Kidney Disease* + --+ --+ ------+| GFR (mL/min/1.73 m2) ?| With Kidney Damage ?| ?Without Kidney Damage+ --------+ --------+ +| ?>90 ?| ?Stage one ?| ? Normal ?+ ---+ ---+ -------+| ?60-89 ?| ?Stage two ?| ? Decreased GFR ? + --+ --+ ------+| ?30-59 ?| ?Stage three ?| ? Stage three ? + --+ --+ ------+| ?15-29 ?| ?Stage four ? | ? Stage four ?+ ---+ ---+ -------+| ?<15 (or dialysis) ? ?| ?Stage five ? | ? Stage five ?+ ---+ ---+ -------+ *Each stage assumes the associated GFR level has been in effect for at least three months. ?Stages 1 to 5, with or without kidney disease, indicate chronic kidney disease. Notes: Determination of stages one and two (with eGFR >59mL/min/1.73 m2) requires estimation of kidney damage for at least three months as defined by structural or functional abnormalities of the kidney, manifested by either:Pathological abnormalities or Markers of kidney damage (including abnormalities in the composition of the blood or urine or abnormalities in imaging tests). Lab Interpretation Abnormal (test code = 54728-7) [facility] 15:31:30 Test Item Value Reference Range Interpretation Comments MAGNESIUM (test code = 4623006050) 1.9 mg/dL 1.7-2.4 Lab Interpretation (test code = Normal 41198-2) [facility] 15:31:30 Test Item Value Reference Range Interpretation Comments PHOSPHORUS (test code = 5602623993) 3.7 mg/dL 2.5-5.0 Lab Interpretation (test code = Normal 10148-8) [facility]IR[facility] (HCV) BY QUANTITATIVE NAAT 2021-05-12 15:02:24 Test Item Value Reference Range Interpretation Comments HCV Quantitative NAAT Not Detected log - log IU/mL (test code IU/mL = 35042-7) HCV Quantitative NAAT Not Detected - IU/mL (test code = IU/mL 34944-9) HCV Quantitative Detected Not Detected A Interpretation (test code = 2133679066) DIONI (test code = DIONI) Report updated with IU/mL result. The Aptima HCV Quant Dx assay is an FDA-approved real-time instrument engineer-mediated amplification (TMA) test used for both detection and quantitation of hepatitis C virus (HCV) RNA in human serum and plasma from HCV-infected individuals. ?It is intended for use as an aid in the diagnosis of active HCV infection and the management of HCV-infected patients undergoing HCV antiviral drug therapy. ?It is not approved for use as a screening test for the presence of HCV RNA in blood or blood products. The quantitative range of this assay is 1.00 - 8.00 log IU/mL or 10 - 100,000,000 IU/mL. An interpretation of "Not Detected" does not rule out the presence of inhibitors in the patient specimen or HCV RNA concentration below the level of detection of the test. ?Care should be taken when interpreting any single viral load determination. Detected, not Quantifiable: HCV RNA detected, but at a level below 10 IU/mL (1.0 log IU/mL). ?HCV RNA concentration is below the lower limit of quantitation of the assay. Indeterminate: Error indicated in the generation of the result. ?Please submit a new specimen for repeat testing if clinically indicated. Lab Interpretation Abnormal (test code = 99538-1) [facility] WITH [id number] 11:52:46 Test Item Value Reference Range Interpretation Comments WBC (test code = See_Comment [Automated 6690-2) message] The sy stem which generated this result transmitted reference range : 4.30 - 11.10 10*3/?L. The reference range was not used to interpret this result as normal/abnormal . RBC (test code = See_Comment L [Automated 789-8) message] The sy stem which generated this result transmitted reference range : 3.93 - 5.25 10*6/?L. The reference range was not used to interpret this result as normal/abnormal . HGB (test code = 7.9 g/dL 11.6-15.0 L 718-7) HCT (test code = 26.6 % 35.7-45.2 L 4544-3) MCV (test code = 78.2 fL 80.6-95.5 L 787-2) MCH (test code = 23.2 pg 25.9-32.8 L 785-6) MCHC (test code = 29.7 g/dL 31.6-35.1 L 786-4) RDW-SD (test code = 63.6 fL 39.0-49.9 H 21049-7) RDW-CV (test code = 23.2 % 12.0-15.5 H 788-0) PLT (test code = See_Comment H [Automated 777-3) message] The sy stem which generated this result transmitted reference range : 166 - 358 10*3/ ?L. The reference r james was not used to interpret this result as normal/abnormal . MPV (test code = 10.1 fL 9.5-12.9 90834-5) NRBC/100 WBC (test See_Comment [Automat ed code = 0596823512) message] The system which generated this result transmitted reference range : 0.0 - 10.0 /100 WBCs. The refer ence range was not u sed to interpret th is result as normal/abnormal . NRBC x10^3 (test code <0.01 See_Comment [Auto mated = 5230785551) message] The s ystem which generated this result transmitted reference range : 10*3/?L. The reference range was not used to interpret this result as normal/abnormal . GRAN MAT (NEUT) % 72.3 % (test code = 770-8) IMM GRAN % (test code 0.50 % = 4895883270) LYMPH % (test code = 17.6 % 736-9) MONO % (test code = 8.4 % 5905-5) EOS % (test code = 1.1 % 713-8) BASO % (test code = 0.1 % 706-2) GRAN MAT x10^3(ANC) 5.69 10*3/uL 1.88-7.09 (test code = 8838297213) IMM GRAN x10^3 (test 0.04 10*3/uL 0.00-0.06 code = 9784560442) LYMPH x10^3 (test code 1.39 10*3/uL 1.32-3.29 = 731-0) MONO x10^3 (test code 0.66 10*3/uL 0.33-0.92 = 742-7) EOS x10^3 (test code = 0.09 10*3/uL 0.03-0.39 711-2) BASO x10^3 (test code <0.03 0.01-0.07 = 704-7) Lab Interpretation Abnormal (test code = 20861-6) [facility] WITHOUT [id number] 00:01:47 Test Item Value Reference Range Interpretation Comments WBC (test code = 6690-2) See_Comment H [A utomated message] The system [employer] generated this result transmit diane reference range : 4.30 - 11.10 10*3/?L. The reference range was not used to interpret this result as normal/abnormal . RBC (test code = 789-8) See_Comment L [Au tomated message] The system [employer] generated this result transmit diane reference range : 3.93 - 5.25 10* 6/?L. The reference r james was not used to interpret this result as normal/abnormal . HGB (test code = 718-7) 8.3 g/dL 11.6-15.0 L HCT (test code = 4544-3) 26.8 % 35.7-45.2 L MCH (test code = 785-6) 23.9 pg 25.9-32.8 L MCV (test code = 787-2) 77.2 fL 80.6-95.5 L MCHC (test code = 786-4) 31.0 g/dL 31.6-35.1 L PLT (test code = 777-3) See_Comment H [Au tomated message] The system [employer] generated this result transmit diane reference range : 166 - 358 10*3/?L. The reference range was not used to interpret this result as normal/abnormal . MPV (test code = 10.5 fL 9.5-12.9 22830-2) RDW-CV (test code = 23.1 % 12.0-15.5 H 788-0) RDW-SD (test code = 62.0 fL 39.0-49.9 H 48356-7) NRBC x10^3 (test code = <0.01 See_Comment [Au tomated message] 9321530706) The system [facility] generated this result transmit diane reference range : 10*3/?L. The reference range was not used to interpret this result as normal/abnormal . NRBC/100 WBC (test code See_Comment [Au tomated message] = 7128928015) The system [facility] generated this result transmit idane reference range : 0.0 - 10.0 /100 WBC s. The reference r james was not used to interpret this result as normal/abnormal . IPF % (test code = 3299854997) Lab Interpretation (test Abnormal code = 74958-3) [facility] WITHOUT [id number] 00:01:47 Test Item Value Reference Range Interpretation Comments WBC (test code = 6690-2) See_Comment H [A utomated message] The system [employer] generated this result transmit diane reference range : 4.30 - 11.10 10*3/?L. The reference range was not used to interpret this result as normal/abnormal . RBC (test code = 789-8) See_Comment L [Au tomated message] The system [facility] generated this result transmit diane reference range : 3.93 - 5.25 10* 6/?L. The reference r james was not used to interpret this result as normal/abnormal . HGB (test code = 718-7) 8.3 g/dL 11.6-15.0 L HCT (test code = 4544-3) 26.8 % 35.7-45.2 L MCH (test code = 785-6) 23.9 pg 25.9-32.8 L MCV (test code = 787-2) 77.2 fL 80.6-95.5 L MCHC (test code = 786-4) 31.0 g/dL 31.6-35.1 L PLT (test code = 777-3) See_Comment H [Au tomated message] The system [facility] generated this result transmit diane reference range : 166 - 358 10*3/?L. The reference range was not used to interpret this result as normal/abnormal . MPV (test code = 10.5 fL 9.5-12.9 05298-1) RDW-CV (test code = 23.1 % 12.0-15.5 H 788-0) RDW-SD (test code = 62.0 fL 39.0-49.9 H 60897-4) NRBC x10^3 (test code = <0.01 See_Comment [Au tomated message] 5548552650) The system [facility] generated this result transmit diane reference range : 10*3/?L. The reference range was not used to interpret this result as normal/abnormal . NRBC/100 WBC (test code See_Comment [Au tomated message] = 1084770756) The system [facility] generated this result transmit diane reference range : 0.0 - 10.0 /100 WBC s. The reference r james was not used to interpret this result as normal/abnormal . IPF % (test code = 6223565171) Lab Interpretation (test Abnormal code = 90413-0) [facility] WITHOUT [id number] 17:58:54 Test Item Value Reference Range Interpretation Comments WBC (test code = 6690-2) See_Comment [A utomated message] The system [facility] generated this result transmit diane reference range : 4.30 - 11.10 10*3/?L. The reference range was not used to interpret this result as normal/abnormal . RBC (test code = 789-8) See_Comment L [Au tomated message] The system [facility] generated this result transmit diane reference range : 3.93 - 5.25 10* 6/?L. The reference r james was not used to interpret this result as normal/abnormal . HGB (test code = 718-7) 7.7 g/dL 11.6-15.0 L HCT (test code = 4544-3) 26.0 % 35.7-45.2 L MCH (test code = 785-6) 23.6 pg 25.9-32.8 L MCV (test code = 787-2) 79.8 fL 80.6-95.5 L MCHC (test code = 786-4) 29.6 g/dL 31.6-35.1 L PLT (test code = 777-3) See_Comment [Au tomated message] The system [facility] generated this result transmit diane reference range : 166 - 358 10*3/?L. The reference range was not used to interpret this result as normal/abnormal . MPV (test code = 10.8 fL 9.5-12.9 79362-6) RDW-CV (test code = 22.5 % 12.0-15.5 H 788-0) RDW-SD (test code = 62.8 fL 39.0-49.9 H 17662-3) NRBC x10^3 (test code = <0.01 See_Comment [Au tomated message] 3155525129) The system [facility] generated this result transmit diane reference range : 10*3/?L. The reference range was not used to interpret this result as normal/abnormal . NRBC/100 WBC (test code See_Comment [Au tomated message] = 8262965089) The system [facility] generated this result transmit diane reference range : 0.0 - 10.0 /100 WBC s. The reference r james was not used to interpret this result as normal/abnormal . IPF % (test code = 9301565194) Lab Interpretation (test Abnormal code = 43261-5) [facility] WITHOUT [id number] 17:58:54 Test Item Value Reference Range Interpretation Comments WBC (test code = 6690-2) See_Comment [A utomated message] The system [facility] generated this result transmit diane reference range : 4.30 - 11.10 10*3/?L. The reference range was not used to interpret this result as normal/abnormal . RBC (test code = 789-8) See_Comment L [Au tomated message] The system [facility] generated this result transmit diane reference range : 3.93 - 5.25 10* 6/?L. The reference r james was not used to interpret this result as normal/abnormal . HGB (test code = 718-7) 7.7 g/dL 11.6-15.0 L HCT (test code = 4544-3) 26.0 % 35.7-45.2 L MCH (test code = 785-6) 23.6 pg 25.9-32.8 L MCV (test code = 787-2) 79.8 fL 80.6-95.5 L MCHC (test code = 786-4) 29.6 g/dL 31.6-35.1 L PLT (test code = 777-3) See_Comment [Au tomated message] The system [employer] generated this result transmit diane reference range : 166 - 358 10*3/?L. The reference range was not used to interpret this result as normal/abnormal . MPV (test code = 10.8 fL 9.5-12.9 75739-0) RDW-CV (test code = 22.5 % 12.0-15.5 H 788-0) RDW-SD (test code = 62.8 fL 39.0-49.9 H 26641-1) NRBC x10^3 (test code = <0.01 See_Comment [Au tomated message] 4565023048) The system [employer] generated this result transmit diane reference range : 10*3/?L. The reference range was not used to interpret this result as normal/abnormal . NRBC/100 WBC (test code See_Comment [Au tomated message] = 0227247322) The system [facility] generated this result transmit diane reference range : 0.0 - 10.0 /100 WBC s. The reference r james was not used to interpret this result as normal/abnormal . IPF % (test code = 2990024430) Lab Interpretation (test Abnormal code = 49471-8) [facility] METABOLIC PANEL (NA, K, CL, CO2, GLUCOSE, BUN, CREATININE, CA)2021-05-11 12:57:47 Test Item Value Reference Range Interpretation Comments NA (test code = 134 mmol/L 135-145 L 8500950086) K (test code = 3.6 mmol/L 3.5-5.0 Slight 4122089864) hemolysis CL (test code = 107 mmol/L 98-108 7810861228) CO2 TOTAL (test code 26 mmol/L 23-31 = 0296528653) AGAP (test code = 2-16 L 8939002809) BUN (test code = 6 mg/dL 7-23 L Slight 9445474948) hemolysis GLUCOSE (test code = 143 mg/dL 70-110 H 3444465127) CREATININE (test code 0.34 mg/dL 0.50-1.04 L = 2203091702) CALCIUM (test code = 7.6 mg/dL 8.6-10.6 L 5748378074) eGFR (test code = mL/min/1.73m2 6195827768) DIONI (test code = DIONI) Association of Glomerular Filtration Rate (GFR) and Staging of Kidney Disease* + -----+ --------+ +| GFR (mL/min/1.73 m2) ?| With Kidney Damage ?| ?Without Kidney Damage+ +------- +---- --+| ?>90 ?| ?Stage one ?| ? Normal ?+ ------+ ---------+--------- +| ?60-89 ?| ?Stage two ?| ? Decreased GFR ? + -----+ --------+ +| ?30-59 ?| ?Stage three ?| ? Stage three ? + -----+ --------+ +| ?15-29 ?| ?Stage four ? | ? Stage four ?+ ------+ ---------+--------- +| ?<15 (or dialysis) ? ?| ?Stage five ? | ? Stage five ?+ ------+ ---------+--------- + *Each stage assumes the associated GFR level has been in effect for at least three months. ?Stages 1 to 5, with or without kidney disease, indicate chronic kidney disease. Notes: Determination of stages one and two (with eGFR >59mL/min/1.73 m2) requires estimation of kidney damage for at least three months as defined by structural or functional abnormalities of the kidney, manifested by either:Pathological abnormalities or Markers of kidney damage (including abnormalities in the composition of the blood or urine or abnormalities in imaging tests). Lab Interpretation Abnormal (test code = 51139-5) [facility]47 Test Item Value Reference Range Interpretation Comments MAGNESIUM (test code = 1659617211) 1.6 mg/dL 1.7-2.4 L Lab Interpretation (test code = Abnormal 62957-3) [facility] 12:57:47 Test Item Value Reference Range Interpretation Comments PHOSPHORUS (test code = 0622484730) 4.1 mg/dL 2.5-5.0 Lab Interpretation (test code = Normal 90723-3) [facility] (NA, K, CL, CO2, GLUCOSE, BUN, CREATININE, CA)2021-05-11 12:57:47 Test Item Value Reference Range Interpretation Comments NA (test code = 134 mmol/L 135-145 L 3039766495) K (test code = 3.6 mmol/L 3.5-5.0 Slight 3037688506) hemolysis CL (test code = 107 mmol/L 98-108 6142268288) CO2 TOTAL (test code 26 mmol/L 23-31 = 9933627966) AGAP (test code = 2-16 L 1110634252) BUN (test code = 6 mg/dL 7-23 L Slight 7609279431) hemolysis GLUCOSE (test code = 143 mg/dL 70-110 H 1528894128) CREATININE (test code 0.34 mg/dL 0.50-1.04 L = 4332785403) CALCIUM (test code = 7.6 mg/dL 8.6-10.6 L 4580464917) eGFR (test code = mL/min/1.73m2 7472058689) DIONI (test code = DIONI) Association of Glomerular Filtration Rate (GFR) and Staging of Kidney Disease* + -----+ --------+ +| GFR (mL/min/1.73 m2) ?| With Kidney Damage ?| ?Without Kidney Damage+ +------- +---- --+| ?>90 ?| ?Stage one ?| ? Normal ?+ ------+ ---------+--------- +| ?60-89 ?| ?Stage two ?| ? Decreased GFR ? + -----+ --------+ +| ?30-59 ?| ?Stage three ?| ? Stage three ? + -----+ --------+ +| ?15-29 ?| ?Stage four ? | ? Stage four ?+ ------+ ---------+--------- +| ?<15 (or dialysis) ? ?| ?Stage five ? | ? Stage five ?+ ------+ ---------+--------- + *Each stage assumes the associated GFR level has been in effect for at least three months. ?Stages 1 to 5, with or without kidney disease, indicate chronic kidney disease. Notes: Determination of stages one and two (with eGFR >59mL/min/1.73 m2) requires estimation of kidney damage for at least three months as defined by structural or functional abnormalities of the kidney, manifested by either:Pathological abnormalities or Markers of kidney damage (including abnormalities in the composition of the blood or urine or abnormalities in imaging tests). Lab Interpretation Abnormal (test code = 07818-4) [facility] 12[facility]57[facility]47 Test Item Value Reference Range Interpretation Comments MAGNESIUM (test code = 2478383579) 1.6 mg/dL 1.7-2.4 L Lab Interpretation (test code = Abnormal 95489-0) [facility] 12[facility]57:47 Test Item Value Reference Range Interpretation Comments PHOSPHORUS (test code = 5965274646) 4.1 mg/dL 2.5-5.0 Lab Interpretation (test code = Normal 53286-7) [facility] WITH [id number] 11:09:36 Test Item Value Reference Range Interpretation Comments WBC (test code = See_Comment H [Automated 5590-2) message] The sy stem which generated this result transmitted reference range : 4.30 - 11.10 10*3/?L. The reference range was not used to interpret this result as normal/abnormal . RBC (test code = See_Comment [Automated 499-8) message] The sy stem which generated this result transmitted reference range : 3.93 - 5.25 10*6/?L. The reference range was not used to interpret this result as normal/abnormal . HGB (test code = 9.4 g/dL 11.6-15.0 L 718-7) HCT (test code = 31.7 % 35.7-45.2 L 4544-3) MCV (test code = 78.1 fL 80.6-95.5 L 787-2) MCH (test code = 23.2 pg 25.9-32.8 L 785-6) MCHC (test code = 29.7 g/dL 31.6-35.1 L 786-4) RDW-SD (test code = 62.3 fL 39.0-49.9 H 20632-8) RDW-CV (test code = 23.4 % 12.0-15.5 H 788-0) PLT (test code = See_Comment H [Automated 777-3) message] The sy stem which generated this result transmitted reference range : 166 - 358 10*3/ ?L. The reference r james was not used to interpret this result as normal/abnormal . MPV (test code = 10.8 fL 9.5-12.9 00784-2) NRBC/100 WBC (test See_Comment [Automat ed code = 5813569466) message] The system which generated this result transmitted reference range : 0.0 - 10.0 /100 WBCs. The refer ence range was not u sed to interpret th is result as normal/abnormal . NRBC x10^3 (test code <0.01 See_Comment [Auto mated = 8114279069) message] The s ystem which generated this result transmitted reference range : 10*3/?L. The reference range was not used to interpret this result as normal/abnormal . GRAN MAT (NEUT) % 77.1 % (test code = 770-8) IMM GRAN % (test code 0.50 % = 2442778514) LYMPH % (test code = 14.1 % 736-9) MONO % (test code = 7.4 % 5905-5) EOS % (test code = 0.6 % 713-8) BASO % (test code = 0.3 % 706-2) GRAN MAT x10^3(ANC) 8.91 10*3/uL 1.88-7.09 H (test code = 8786650120) IMM GRAN x10^3 (test 0.06 10*3/uL 0.00-0.06 code = 5367030245) LYMPH x10^3 (test code 1.63 10*3/uL 1.32-3.29 = 731-0) MONO x10^3 (test code 0.86 10*3/uL 0.33-0.92 = 742-7) EOS x10^3 (test code = 0.07 10*3/uL 0.03-0.39 711-2) BASO x10^3 (test code 0.03 10*3/uL 0.01-0.07 = 704-7) Lab Interpretation Abnormal (test code = 13388-1) [facility] WITH [id number] 11:09:36 Test Item Value Reference Range Interpretation Comments WBC (test code = See_Comment H [Automated 6690-2) message] The sy stem which generated this result transmitted reference range : 4.30 - 11.10 10*3/?L. The reference range was not used to interpret this result as normal/abnormal . RBC (test code = See_Comment [Automated 789-8) message] The sy stem which generated this result transmitted reference range : 3.93 - 5.25 10*6/?L. The reference range was not used to interpret this result as normal/abnormal . HGB (test code = 9.4 g/dL 11.6-15.0 L 718-7) HCT (test code = 31.7 % 35.7-45.2 L 4544-3) MCV (test code = 78.1 fL 80.6-95.5 L 787-2) MCH (test code = 23.2 pg 25.9-32.8 L 785-6) MCHC (test code = 29.7 g/dL 31.6-35.1 L 786-4) RDW-SD (test code = 62.3 fL 39.0-49.9 H 86524-7) RDW-CV (test code = 23.4 % 12.0-15.5 H 788-0) PLT (test code = See_Comment H [Automated 777-3) message] The sy stem which generated this result transmitted reference range : 166 - 358 10*3/ ?L. The reference r james was not used to interpret this result as normal/abnormal . MPV (test code = 10.8 fL 9.5-12.9 19875-9) NRBC/100 WBC (test See_Comment [Automat ed code = 5761015492) message] The system which generated this result transmitted reference range : 0.0 - 10.0 /100 WBCs. The refer ence range was not u sed to interpret th is result as normal/abnormal . NRBC x10^3 (test code <0.01 See_Comment [Auto mated = 9764133873) message] The s [employer] which generated this result transmitted reference range : 10*3/?L. The reference range was not used to interpret this result as normal/abnormal . GRAN MAT (NEUT) % 77.1 % (test code = 770-8) IMM GRAN % (test code 0.50 % = 1739931431) LYMPH % (test code = 14.1 % 736-9) MONO % (test code = 7.4 % 5905-5) EOS % (test code = 0.6 % 713-8) BASO % (test code = 0.3 % 706-2) GRAN MAT x10^3(ANC) 8.91 10*3/uL 1.88-7.09 H (test code = 7734250480) IMM GRAN x10^3 (test 0.06 10*3/uL 0.00-0.06 code = 5462205810) LYMPH x10^3 (test code 1.63 10*3/uL 1.32-3.29 = 731-0) MONO x10^3 (test code 0.86 10*3/uL 0.33-0.92 = 742-7) EOS x10^3 (test code = 0.07 10*3/uL 0.03-0.39 711-2) BASO x10^3 (test code 0.03 10*3/uL 0.01-0.07 = 704-7) Lab Interpretation Abnormal (test code = 92739-8) [facility] WITHOUT [id number] 03:04:51 Test Item Value Reference Range Interpretation Comments WBC (test code = 6690-2) See_Comment [A utomated message] The system [employer] generated this result transmit diane reference range : 4.30 - 11.10 10*3/?L. The reference range was not used to interpret this result as normal/abnormal . RBC (test code = 789-8) See_Comment L [Au tomated message] The system [employer] generated this result transmit diane reference range : 3.93 - 5.25 10* 6/?L. The reference r james was not used to interpret this result as normal/abnormal . HGB (test code = 718-7) 8.4 g/dL 11.6-15.0 L HCT (test code = 4544-3) 27.4 % 35.7-45.2 L MCH (test code = 785-6) 23.6 pg 25.9-32.8 L MCV (test code = 787-2) 77.0 fL 80.6-95.5 L MCHC (test code = 786-4) 30.7 g/dL 31.6-35.1 L PLT (test code = 777-3) See_Comment H [Au tomated message] The system [facility] generated this result transmit diane reference range : 166 - 358 10*3/?L. The reference range was not used to interpret this result as normal/abnormal . MPV (test code = 10.5 fL 9.5-12.9 46141-3) RDW-CV (test code = 22.2 % 12.0-15.5 H 788-0) RDW-SD (test code = 59.2 fL 39.0-49.9 H 26970-5) NRBC x10^3 (test code = <0.01 See_Comment [Au tomated message] 8525458765) The system [facility] generated this result transmit diane reference range : 10*3/?L. The reference range was not used to interpret this result as normal/abnormal . NRBC/100 WBC (test code See_Comment [Au tomated message] = 4125139875) The system [facility] generated this result transmit diane reference range : 0.0 - 10.0 /100 WBC s. The reference r james was not used to interpret this result as normal/abnormal . IPF % (test code = 2808048453) Lab Interpretation (test Abnormal code = 25852-3) [facility] WITHOUT [id number] 03:04:51 Test Item Value Reference Range Interpretation Comments WBC (test code = 6690-2) See_Comment [A utomated message] The system [facility] [employer] generated this result transmit diane reference range : 4.30 - 11.10 10*3/?L. The reference range was not used to interpret this result as normal/abnormal . RBC (test code = 789-8) See_Comment L [Au tomated message] The system [employer] generated this result transmit diane reference range : 3.93 - 5.25 10* 6/?L. The reference r james was not used to interpret this result as normal/abnormal . HGB (test code = 718-7) 8.4 g/dL 11.6-15.0 L HCT (test code = 4544-3) 27.4 % 35.7-45.2 L MCH (test code = 785-6) 23.6 pg 25.9-32.8 L MCV (test code = 787-2) 77.0 fL 80.6-95.5 L MCHC (test code = 786-4) 30.7 g/dL 31.6-35.1 L PLT (test code = 777-3) See_Comment H [Au tomated message] The system [employer] generated this result transmit diane reference range : 166 - 358 10*3/?L. The reference range was not used to interpret this result as normal/abnormal . MPV (test code = 10.5 fL 9.5-12.9 24956-0) RDW-CV (test code = 22.2 % 12.0-15.5 H 788-0) RDW-SD (test code = 59.2 fL 39.0-49.9 H 20992-0) NRBC x10^3 (test code = <0.01 See_Comment [Au tomated message] 6365998804) The system [employer] generated this result transmit diane reference range : 10*3/?L. The reference range was not used to interpret this result as normal/abnormal . NRBC/100 WBC (test code See_Comment [Au tomated message] = 9447142233) The system [facility] generated this result transmit diane reference range : 0.0 - 10.0 /100 WBC s. The reference r james was not used to interpret this result as normal/abnormal . IPF % (test code = 1444007464) Lab Interpretation (test Abnormal code = 65279-4) [facility] WITHOUT [id number] 15:35:17 Test Item Value Reference Range Interpretation Comments WBC (test code = 6690-2) See_Comment [A utomated message] The system [facility] generated this result transmit diane reference range : 4.30 - 11.10 10*3/?L. The reference range was not used to interpret this result as normal/abnormal . RBC (test code = 789-8) See_Comment L [Au tomated message] The system [facility] generated this result transmit diane reference range : 3.93 - 5.25 10* 6/?L. The reference r james was not used to interpret this result as normal/abnormal . HGB (test code = 718-7) 8.5 g/dL 11.6-15.0 L HCT (test code = 4544-3) 28.2 % 35.7-45.2 L MCH (test code = 785-6) 23.5 pg 25.9-32.8 L MCV (test code = 787-2) 77.9 fL 80.6-95.5 L MCHC (test code = 786-4) 30.1 g/dL 31.6-35.1 L PLT (test code = 777-3) See_Comment H [Au tomated message] The system [facility] generated this result transmit diane reference range : 166 - 358 10*3/?L. The reference range was not used to interpret this result as normal/abnormal . MPV (test code = 10.8 fL 9.5-12.9 91267-4) RDW-CV (test code = 21.4 % 12.0-15.5 H 788-0) RDW-SD (test code = 58.6 fL 39.0-49.9 H 20867-5) NRBC x10^3 (test code = <0.01 See_Comment [Au tomated message] 9235947385) The system [facility] generated this result transmit diane reference range : 10*3/?L. The reference range was not used to interpret this result as normal/abnormal . NRBC/100 WBC (test code See_Comment [Au tomated message] = 8630728624) The system [facility] generated this result transmit diane reference range : 0.0 - 10.0 /100 WBC s. The reference r james was not used to interpret this result as normal/abnormal . IPF % (test code = 1434464596) Lab Interpretation (test Abnormal code = 41875-0) [facility] WITHOUT [id number] 15:35:17 Test Item Value Reference Range Interpretation Comments WBC (test code = 6690-2) See_Comment [A utomated message] The system [employer] generated this result transmit diane reference range : 4.30 - 11.10 10*3/?L. The reference range was not used to interpret this result as normal/abnormal . RBC (test code = 789-8) See_Comment L [Au tomated message] The system [employer] generated this result transmit diane reference range : 3.93 - 5.25 10* 6/?L. The reference r james was not used to interpret this result as normal/abnormal . HGB (test code = 718-7) 8.5 g/dL 11.6-15.0 L HCT (test code = 4544-3) 28.2 % 35.7-45.2 L MCH (test code = 785-6) 23.5 pg 25.9-32.8 L MCV (test code = 787-2) 77.9 fL 80.6-95.5 L MCHC (test code = 786-4) 30.1 g/dL 31.6-35.1 L PLT (test code = 777-3) See_Comment H [Au tomated message] The system [employer] generated this result transmit diane reference range : 166 - 358 10*3/?L. The reference range was not used to interpret this result as normal/abnormal . MPV (test code = 10.8 fL 9.5-12.9 45225-1) RDW-CV (test code = 21.4 % 12.0-15.5 H 788-0) RDW-SD (test code = 58.6 fL 39.0-49.9 H 09008-2) NRBC x10^3 (test code = <0.01 See_Comment [Au tomated message] 4214490373) The system [employer] generated this result transmit diane reference range : 10*3/?L. The reference range was not used to interpret this result as normal/abnormal . NRBC/100 WBC (test code See_Comment [Au tomated message] = 1993183267) The system [facility] generated this result transmit diane reference range : 0.0 - 10.0 /100 WBC s. The reference r james was not used to interpret this result as normal/abnormal . IPF % (test code = 6938797716) Lab Interpretation (test Abnormal code = 27482-0) [facility] METABOLIC PANEL (NA, K, CL, CO2, GLUCOSE, BUN, CREATININE, CA)2021-05-10 08:13:11 Test Item Value Reference Range Interpretation Comments NA (test code = 138 mmol/L 135-145 4828556831) K (test code = 4.0 mmol/L 3.5-5.0 4913013858) CL (test code = 109 mmol/L 98-108 H 3317935237) CO2 TOTAL (test code = 27 mmol/L 23-31 0311390609) AGAP (test code = 2-16 5390934036) BUN (test code = 6 mg/dL 7-23 L 7465740660) GLUCOSE (test code = 93 mg/dL 70-110 7685637925) CREATININE (test code = 0.39 mg/dL 0.50-1.04 L 3695763828) CALCIUM (test code = 8.1 mg/dL 8.6-10.6 L 0640562112) eGFR (test code = mL/min/1.73m2 8850507316) DIONI (test code = DIONI) Association of Glomerular Filtration Rate (GFR) and Staging of Kidney Disease* + --+ --+ ------+| GFR (mL/min/1.73 m2) ?| With Kidney Damage ?| ?Without Kidney Damage+ --------+ --------+ +| ?>90 ?| ?Stage one ?| ? Normal ?+ ---+ ---+ -------+| ?60-89 ?| ?Stage two ?| ? Decreased GFR ? + --+ --+ ------+| ?30-59 ?| ?Stage three ?| ? Stage three ? + --+ --+ ------+| ?15-29 ?| ?Stage four ? | ? Stage four ?+ ---+ ---+ -------+| ?<15 (or dialysis) ? ?| ?Stage five ? | ? Stage five ?+ ---+ ---+ -------+ *Each stage assumes the associated GFR level has been in effect for at least three months. ?Stages 1 to 5, with or without kidney disease, indicate chronic kidney disease. Notes: Determination of stages one and two (with eGFR >59mL/min/1.73 m2) requires estimation of kidney damage for at least three months as defined by structural or functional abnormalities of the kidney, manifested by either:Pathological abnormalities or Markers of kidney damage (including abnormalities in the composition of the blood or urine or abnormalities in imaging tests). Lab Interpretation Abnormal (test code = 99997-7) [facility] Test Item Value Reference Range Interpretation Comments MAGNESIUM (test code = 8281993174) 1.8 mg/dL 1.7-2.4 Lab Interpretation (test code = Normal 07780-4) [facility] METABOLIC PANEL (NA, K, CL, CO2, GLUCOSE, BUN, CREATININE, CA)2021-05-10 08:13:11 Test Item Value Reference Range Interpretation Comments NA (test code = 138 mmol/L 135-145 7585688701) K (test code = 4.0 mmol/L 3.5-5.0 0933191610) CL (test code = 109 mmol/L 98-108 H 4204587775) CO2 TOTAL (test code = 27 mmol/L 23-31 3411095555) AGAP (test code = 2-16 8337770895) BUN (test code = 6 mg/dL 7-23 L 4784550630) GLUCOSE (test code = 93 mg/dL 70-110 8292736192) CREATININE (test code = 0.39 mg/dL 0.50-1.04 L 8693158834) CALCIUM (test code = 8.1 mg/dL 8.6-10.6 L 8013760595) eGFR (test code = mL/min/1.73m2 0173534666) DIONI (test code = DIONI) Association of Glomerular Filtration Rate (GFR) and Staging of Kidney Disease* + --+ --+ ------+| GFR (mL/min/1.73 m2) ?| With Kidney Damage ?| ?Without Kidney Damage+ --------+ --------+ +| ?>90 ?| ?Stage one ?| ? Normal ?+ ---+ ---+ -------+| ?60-89 ?| ?Stage two ?| ? Decreased GFR ? + --+ --+ ------+| ?30-59 ?| ?Stage three ?| ? Stage three ? + --+ --+ ------+| ?15-29 ?| ?Stage four ? | ? Stage four ?+ ---+ ---+ -------+| ?<15 (or dialysis) ? ?| ?Stage five ? | ? Stage five ?+ ---+ ---+ -------+ *Each stage assumes the associated GFR level has been in effect for at least three months. ?Stages 1 to 5, with or without kidney disease, indicate chronic kidney disease. Notes: Determination of stages one and two (with eGFR >59mL/min/1.73 m2) requires estimation of kidney damage for at least three months as defined by structural or functional abnormalities of the kidney, manifested by either:Pathological abnormalities or Markers of kidney damage (including abnormalities in the composition of the blood or urine or abnormalities in imaging tests). Lab Interpretation Abnormal (test code = 81978-0) [facility]:13[facility]11 Test Item Value Reference Range Interpretation Comments MAGNESIUM (test code = 6526008444) 1.8 mg/dL 1.7-2.4 Lab Interpretation (test code = Normal 32687-0) [facility] WITH [id number] 07:52:13 Test Item Value Reference Range Interpretation Comments WBC (test code = See_Comment [Automated 6990-2) message] The sy stem which generated this result transmitted reference range : 4.30 - 11.10 10*3/?L. The reference range was not used to interpret this result as normal/abnormal . RBC (test code = See_Comment L [Automated 729-8) message] The sy stem which generated this result transmitted reference range : 3.93 - 5.25 10*6/?L. The reference range was not used to interpret this result as normal/abnormal . HGB (test code = 7.9 g/dL 11.6-15.0 L 718-7) HCT (test code = 26.4 % 35.7-45.2 L 4544-3) MCV (test code = 77.2 fL 80.6-95.5 L 787-2) MCH (test code = 23.1 pg 25.9-32.8 L 785-6) MCHC (test code = 29.9 g/dL 31.6-35.1 L 786-4) RDW-SD (test code = 57.6 fL 39.0-49.9 H 66805-2) RDW-CV (test code = 21.1 % 12.0-15.5 H 788-0) PLT (test code = See_Comment H [Automated 777-3) message] The sy stem which generated this result transmitted reference range : 166 - 358 10*3/ ?L. The reference r james was not used to interpret this result as normal/abnormal . MPV (test code = 10.2 fL 9.5-12.9 78515-3) NRBC/100 WBC (test See_Comment [Automat ed code = 2639847718) message] The system which generated this result transmitted reference range : 0.0 - 10.0 /100 WBCs. The refer ence range was not u sed to interpret th is result as normal/abnormal . NRBC x10^3 (test code <0.01 See_Comment [Auto mated = 0208793577) message] The s ystem which generated this result transmitted reference range : 10*3/?L. The reference range was not used to interpret this result as normal/abnormal . GRAN MAT (NEUT) % 75.1 % (test code = 770-8) IMM GRAN % (test code 0.60 % = 6857024234) LYMPH % (test code = 13.2 % 736-9) MONO % (test code = 10.2 % 5905-5) EOS % (test code = 0.7 % 713-8) BASO % (test code = 0.2 % 706-2) GRAN MAT x10^3(ANC) 7.33 10*3/uL 1.88-7.09 H (test code = 7288547704) IMM GRAN x10^3 (test 0.06 10*3/uL 0.00-0.06 code = 3872309303) LYMPH x10^3 (test code 1.29 10*3/uL 1.32-3.29 L = 731-0) MONO x10^3 (test code 1.00 10*3/uL 0.33-0.92 H = 742-7) EOS x10^3 (test code = 0.07 10*3/uL 0.03-0.39 711-2) BASO x10^3 (test code <0.03 0.01-0.07 = 704-7) Lab Interpretation Abnormal (test code = 04037-9) [facility] WITH [id number] 07:52:13 Test Item Value Reference Range Interpretation Comments WBC (test code = See_Comment [Automated 6690-2) message] The sy stem which generated this result transmitted reference range : 4.30 - 11.10 10*3/?L. The reference range was not used to interpret this result as normal/abnormal . RBC (test code = See_Comment L [Automated 789-8) message] The sy stem which generated this result transmitted reference range : 3.93 - 5.25 10*6/?L. The reference range was not used to interpret this result as normal/abnormal . HGB (test code = 7.9 g/dL 11.6-15.0 L 718-7) HCT (test code = 26.4 % 35.7-45.2 L 4544-3) MCV (test code = 77.2 fL 80.6-95.5 L 787-2) MCH (test code = 23.1 pg 25.9-32.8 L 785-6) MCHC (test code = 29.9 g/dL 31.6-35.1 L 786-4) RDW-SD (test code = 57.6 fL 39.0-49.9 H 15808-6) RDW-CV (test code = 21.1 % 12.0-15.5 H 788-0) PLT (test code = See_Comment H [Automated 777-3) message] The sy stem which generated this result transmitted reference range : 166 - 358 10*3/ ?L. The reference r james was not used to interpret this result as normal/abnormal . MPV (test code = 10.2 fL 9.5-12.9 51229-9) NRBC/100 WBC (test See_Comment [Automat ed code = 6367561330) message] The system which generated this result transmitted reference range : 0.0 - 10.0 /100 WBCs. The refer ence range was not u sed to interpret th is result as normal/abnormal . NRBC x10^3 (test code <0.01 See_Comment [Auto mated = 8037682000) message] The s [employer] which generated this result transmitted reference range : 10*3/?L. The reference range was not used to interpret this result as normal/abnormal . GRAN MAT (NEUT) % 75.1 % (test code = 770-8) IMM GRAN % (test code 0.60 % = 2247122308) LYMPH % (test code = 13.2 % 736-9) MONO % (test code = 10.2 % 5905-5) EOS % (test code = 0.7 % 713-8) BASO % (test code = 0.2 % 706-2) GRAN MAT x10^3(ANC) 7.33 10*3/uL 1.88-7.09 H (test code = 7306382941) IMM GRAN x10^3 (test 0.06 10*3/uL 0.00-0.06 code = 2334360365) LYMPH x10^3 (test code 1.29 10*3/uL 1.32-3.29 L = 731-0) MONO x10^3 (test code 1.00 10*3/uL 0.33-0.92 H = 742-7) EOS x10^3 (test code = 0.07 10*3/uL 0.03-0.39 711-2) BASO x10^3 (test code <0.03 0.01-0.07 = 704-7) Lab Interpretation Abnormal (test code = 55503-5) [facility] WITHOUT [id number] 02:12:36 Test Item Value Reference Range Interpretation Comments WBC (test code = 6690-2) See_Comment [A utomated message] The system [employer] generated this result transmit diane reference range : 4.30 - 11.10 10*3/?L. The reference range was not used to interpret this result as normal/abnormal . RBC (test code = 789-8) See_Comment L [Au tomated message] The system [employer] generated this result transmit diane reference range : 3.93 - 5.25 10* 6/?L. The reference r james was not used to interpret this result as normal/abnormal . HGB (test code = 718-7) 9.0 g/dL 11.6-15.0 L HCT (test code = 4544-3) 30.3 % 35.7-45.2 L MCH (test code = 785-6) 23.2 pg 25.9-32.8 L MCV (test code = 787-2) 78.1 fL 80.6-95.5 L MCHC (test code = 786-4) 29.7 g/dL 31.6-35.1 L PLT (test code = 777-3) See_Comment H [Au tomated message] The system [facility] generated this result transmit diane reference range : 166 - 358 10*3/?L. The reference range was not used to interpret this result as normal/abnormal . MPV (test code = 10.1 fL 9.5-12.9 21339-4) RDW-CV (test code = 21.2 % 12.0-15.5 H 788-0) RDW-SD (test code = 59.3 fL 39.0-49.9 H 55223-5) NRBC x10^3 (test code = <0.01 See_Comment [Au tomated message] [id number]) The system [facility] generated this result transmit diane reference range : 10*3/?L. The reference range was not used to interpret this result as normal/abnormal . NRBC/100 WBC (test code See_Comment [Au tomated message] = [id number]) The system [facility] generated this result transmit diane reference range : 0.0 - 10.0 /100 WBC s. The reference r james was not used to interpret this result as normal/abnormal . IPF % (test code = 6502722072) Lab Interpretation (test Abnormal code = 66718-9) [facility] WITHOUT [id number] 02:12:36 Test Item Value Reference Range Interpretation Comments WBC (test code = 6690-2) See_Comment [A utomated message] The system [facility] generated this result transmit diane reference range : 4.30 - 11.10 10*3/?L. The reference range was not used to interpret this result as normal/abnormal . RBC (test code = 789-8) See_Comment L [Au tomated message] The system [employer] generated this result transmit diane reference range : 3.93 - 5.25 10* 6/?L. The reference r james was not used to interpret this result as normal/abnormal . HGB (test code = 718-7) 9.0 g/dL 11.6-15.0 L HCT (test code = 4544-3) 30.3 % 35.7-45.2 L MCH (test code = 785-6) 23.2 pg 25.9-32.8 L MCV (test code = 787-2) 78.1 fL 80.6-95.5 L MCHC (test code = 786-4) 29.7 g/dL 31.6-35.1 L PLT (test code = 777-3) See_Comment H [Au tomated message] The system [employer] generated this result transmit diane reference range : 166 - 358 10*3/?L. The reference range was not used to interpret this result as normal/abnormal . MPV (test code = 10.1 fL 9.5-12.9 77298-3) RDW-CV (test code = 21.2 % 12.0-15.5 H 788-0) RDW-SD (test code = 59.3 fL 39.0-49.9 H 67158-5) NRBC x10^3 (test code = <0.01 See_Comment [Au tomated message] [id number]) The system [employer] generated this result transmit diane reference range : 10*3/?L. The reference range was not used to interpret this result as normal/abnormal . NRBC/100 WBC (test code See_Comment [Au tomated message] = 2971352440) The system [facility] generated this result transmit diane reference range : 0.0 - 10.0 /100 WBC s. The reference r james was not used to interpret this result as normal/abnormal . IPF % (test code = 4469750658) Lab Interpretation (test Abnormal code = 10709-9) [facility] METABOLIC PANEL (NA, K, CL, CO2, GLUCOSE, BUN, CREATININE, CA)2021-05-09 13:58:08 Test Item Value Reference Range Interpretation Comments NA (test code = 137 mmol/L 135-145 7943085891) K (test code = 4.3 mmol/L 3.5-5.0 0214956477) CL (test code = 110 mmol/L 98-108 H 0335212804) CO2 TOTAL (test code = 30 mmol/L 23-31 0997021905) AGAP (test code = <1 2-16 L 5539504119) BUN (test code = 4 mg/dL 7-23 L 3832016704) GLUCOSE (test code = 90 mg/dL 70-110 7808636713) CREATININE (test code = 0.41 mg/dL 0.50-1.04 L 9276058775) CALCIUM (test code = 8.0 mg/dL 8.6-10.6 L 3335464483) eGFR (test code = mL/min/1.73m2 6096945106) DIONI (test code = DIONI) Association of Glomerular Filtration Rate (GFR) and Staging of Kidney Disease* + --+ --+ ------+| GFR (mL/min/1.73 m2) ?| With Kidney Damage ?| ?Without Kidney Damage+ --------+ --------+ +| ?>90 ?| ?Stage one ?| ? Normal ?+ ---+ ---+ -------+| ?60-89 ?| ?Stage two ?| ? Decreased GFR ? + --+ --+ ------+| ?30-59 ?| ?Stage three ?| ? Stage three ? + --+ --+ ------+| ?15-29 ?| ?Stage four ? | ? Stage four ?+ ---+ ---+ -------+| ?<15 (or dialysis) ? ?| ?Stage five ? | ? Stage five ?+ ---+ ---+ -------+ *Each stage assumes the associated GFR level has been in effect for at least three months. ?Stages 1 to 5, with or without kidney disease, indicate chronic kidney disease. Notes: Determination of stages one and two (with eGFR >59mL/min/1.73 m2) requires estimation of kidney damage for at least three months as defined by structural or functional abnormalities of the kidney, manifested by either:Pathological abnormalities or Markers of kidney damage (including abnormalities in the composition of the blood or urine or abnormalities in imaging tests). Lab Interpretation Abnormal (test code = 64516-0) [facility] METABOLIC PANEL (NA, K, CL, CO2, GLUCOSE, BUN, CREATININE, CA)2021-05-09 13:58:08 Test Item Value Reference Range Interpretation Comments NA (test code = 137 mmol/L 135-145 0330444582) K (test code = 4.3 mmol/L 3.5-5.0 1572549850) CL (test code = 110 mmol/L 98-108 H 5269709830) CO2 TOTAL (test code = 30 mmol/L 23-31 1744414004) AGAP (test code = <1 2-16 L 6942084735) BUN (test code = 4 mg/dL 7-23 L 1242210875) GLUCOSE (test code = 90 mg/dL 70-110 2775576185) CREATININE (test code = 0.41 mg/dL 0.50-1.04 L 1082323174) CALCIUM (test code = 8.0 mg/dL 8.6-10.6 L 2811365245) eGFR (test code = mL/min/1.73m2 6660332354) DIONI (test code = DIONI) Association of Glomerular Filtration Rate (GFR) and Staging of Kidney Disease* + --+ --+ ------+| GFR (mL/min/1.73 m2) ?| With Kidney Damage ?| ?Without Kidney Damage+ --------+ --------+ +| ?>90 ?| ?Stage one ?| ? Normal ?+ ---+ ---+ -------+| ?60-89 ?| ?Stage two ?| ? Decreased GFR ? + --+ --+ ------+| ?30-59 ?| ?Stage three ?| ? Stage three ? + --+ --+ ------+| ?15-29 ?| ?Stage four ? | ? Stage four ?+ ---+ ---+ -------+| ?<15 (or dialysis) ? ?| ?Stage five ? | ? Stage five ?+ ---+ ---+ -------+ *Each stage assumes the associated GFR level has been in effect for at least three months. ?Stages 1 to 5, with or without kidney disease, indicate chronic kidney disease. Notes: Determination of stages one and two (with eGFR >59mL/min/1.73 m2) requires estimation of kidney damage for at least three months as defined by structural or functional abnormalities of the kidney, manifested by either:Pathological abnormalities or Markers of kidney damage (including abnormalities in the composition of the blood or urine or abnormalities in imaging tests). Lab Interpretation Abnormal (test code = 19185-5) [facility] WITH [id number] 10:47:39 Test Item Value Reference Range Interpretation Comments WBC (test code = See_Comment [Automated 6690-2) message] The sy stem which generated this result transmitted reference range : 4.30 - 11.10 10*3/?L. The reference range was not used to interpret this result as normal/abnormal . RBC (test code = See_Comment L [Automated 789-8) message] The sy stem which generated this result transmitted reference range : 3.93 - 5.25 10*6/?L. The reference range was not used to interpret this result as normal/abnormal . HGB (test code = 8.1 g/dL 11.6-15.0 L 718-7) HCT (test code = 26.2 % 35.7-45.2 L 4544-3) MCV (test code = 75.9 fL 80.6-95.5 L 787-2) MCH (test code = 23.5 pg 25.9-32.8 L 785-6) MCHC (test code = 30.9 g/dL 31.6-35.1 L 786-4) RDW-SD (test code = 57.0 fL 39.0-49.9 H 53985-9) RDW-CV (test code = 21.2 % 12.0-15.5 H 788-0) PLT (test code = See_Comment H [Automated 777-3) message] The sy stem which generated this result transmitted reference range : 166 - 358 10*3/ ?L. The reference r james was not used to interpret this result as normal/abnormal . MPV (test code = 10.2 fL 9.5-12.9 62232-3) NRBC/100 WBC (test See_Comment [Automat ed code = 9929173075) message] The system which generated this result transmitted reference range : 0.0 - 10.0 /100 WBCs. The refer ence range was not u sed to interpret th is result as normal/abnormal . NRBC x10^3 (test code <0.01 See_Comment [Auto mated = 8946277995) message] The s ystem which generated this result transmitted reference range : 10*3/?L. The reference range was not used to interpret this result as normal/abnormal . GRAN MAT (NEUT) % 68.4 % (test code = 770-8) IMM GRAN % (test code 0.70 % = 4831716447) LYMPH % (test code = 18.5 % 736-9) MONO % (test code = 11.1 % 5905-5) EOS % (test code = 1.1 % 713-8) BASO % (test code = 0.2 % 706-2) GRAN MAT x10^3(ANC) 5.79 10*3/uL 1.88-7.09 (test code = 3400970304) IMM GRAN x10^3 (test 0.06 10*3/uL 0.00-0.06 code = 3789038429) LYMPH x10^3 (test code 1.57 10*3/uL 1.32-3.29 = 731-0) MONO x10^3 (test code 0.94 10*3/uL 0.33-0.92 H = 742-7) EOS x10^3 (test code = 0.09 10*3/uL 0.03-0.39 711-2) BASO x10^3 (test code <0.03 0.01-0.07 = 704-7) Lab Interpretation Abnormal (test code = 90906-3) [facility] WITH [id number] 10:47:39 Test Item Value Reference Range Interpretation Comments WBC (test code = See_Comment [Automated 5590-2) message] The sy stem which generated this result transmitted reference range : 4.30 - 11.10 10*3/?L. The reference range was not used to interpret this result as normal/abnormal . RBC (test code = See_Comment L [Automated 639-8) message] The sy stem which generated this result transmitted reference range : 3.93 - 5.25 10*6/?L. The reference range was not used to interpret this result as normal/abnormal . HGB (test code = 8.1 g/dL 11.6-15.0 L 718-7) HCT (test code = 26.2 % 35.7-45.2 L 4544-3) MCV (test code = 75.9 fL 80.6-95.5 L 787-2) MCH (test code = 23.5 pg 25.9-32.8 L 785-6) MCHC (test code = 30.9 g/dL 31.6-35.1 L 786-4) RDW-SD (test code = 57.0 fL 39.0-49.9 H 32070-6) RDW-CV (test code = 21.2 % 12.0-15.5 H 788-0) PLT (test code = See_Comment H [Automated 777-3) message] The sy stem which generated this result transmitted reference range : 166 - 358 10*3/ ?L. The reference r james was not used to interpret this result as normal/abnormal . MPV (test code = 10.2 fL 9.5-12.9 85326-1) NRBC/100 WBC (test See_Comment [Automat ed code = 5725633722) message] The system which generated this result transmitted reference range : 0.0 - 10.0 /100 WBCs. The refer ence range was not u sed to interpret th is result as normal/abnormal . NRBC x10^3 (test code <0.01 See_Comment [Auto mated = 6110469699) message] The s ystem which generated this result transmitted reference range : 10*3/?L. The reference range was not used to interpret this result as normal/abnormal . GRAN MAT (NEUT) % 68.4 % (test code = 770-8) IMM GRAN % (test code 0.70 % = 9782282660) LYMPH % (test code = 18.5 % 736-9) MONO % (test code = 11.1 % 5905-5) EOS % (test code = 1.1 % 713-8) BASO % (test code = 0.2 % 706-2) GRAN MAT x10^3(ANC) 5.79 10*3/uL 1.88-7.09 (test code = 0275981427) IMM GRAN x10^3 (test 0.06 10*3/uL 0.00-0.06 code = 5409015825) LYMPH x10^3 (test code 1.57 10*3/uL 1.32-3.29 = 731-0) MONO x10^3 (test code 0.94 10*3/uL 0.33-0.92 H = 742-7) EOS x10^3 (test code = 0.09 10*3/uL 0.03-0.39 711-2) BASO x10^3 (test code <0.03 0.01-0.07 = 704-7) Lab Interpretation Abnormal (test code = 62007-7) [facility] Test Item Value Reference Range Interpretation Comments FOLATE SER (test code = 13.2 ng/mL 3.0-20.0 5951274659) Lab Interpretation (test code = Normal 04588-4) [facility] 08:52:50 Test Item Value Reference Range Interpretation Comments FOLATE SER (test code = 13.2 ng/mL 3.0-20.0 3643073398) Lab Interpretation (test code = Normal 82902-0) [facility] [id number] 07:24:13 Test Item Value Reference Range Interpretation Comments HCV Ab (test code = Positive 54319-6) HCV Semi-Quantitative (test code = 87568-4) APRI (test code = 8580919828) DIONI (test code = Positive for HCV antibody DIONI) with a high signal to cutoff ratio (s/c). ?Supplementary test for Hepatitis C Virus RNA Real-Time PCR is recommended if clinically indicated. ?If any questions, please contact Clinical Chemistry Director vascular sonographer at [phone].APRI score < 0.5: Suggestive of little to no fibrosisAPRI score > 1.5: Suggestive of moderate to severe fibrosisAPRI score > 2.0: Highly suggestive of cirrhosis. [facility] [id number] 07:24:13 Test Item Value Reference Range Interpretation Comments HCV Ab (test code = Positive 25256-0) HCV Semi-Quantitative (test code = 65986-8) APRI (test code = 4163546181) DIONI (test code = Positive for HCV antibody DIONI) with a high signal to cutoff ratio (s/c). ?Supplementary test for Hepatitis C Virus RNA Real-Time PCR is recommended if clinically indicated. ?If any questions, please contact Clinical Chemistry Director vascular sonographer at [phone].APRI score < 0.5: Suggestive of little to no fibrosisAPRI score > 1.5: Suggestive of moderate to severe fibrosisAPRI score > 2.0: Highly suggestive of cirrhosis. [facility] B12, [id number] 06:24:56 Test Item Value Reference Range Interpretation Comments VIT B12 (test code = 731 pg/mL 240-930 8800588297) DIONI (test code = DIONI) Biotin has been reported to cause a positive bias, interpret results relative to patient's use of biotin. Lab Interpretation (test Normal code = 86742-6) [facility], [id number] 06:24:56 Test Item Value Reference Range Interpretation Comments VIT B12 (test code = 731 pg/mL 240-930 2259250525) DIONI (test code = DIONI) Biotin has been reported to cause a positive bias, interpret results relative to patient's use of biotin. Lab Interpretation (test Normal code = 00336-7) [facility] Packed RBC (in units), 1 Units 2021-05-09 06:24:21 Test Item Value Reference Range Interpretation Comments Cross Match Result Compatible (test code = 4409) ISBT Blood Type Code (test code = 479850) Unit Blood Type (test O Pos code = 4410) Unit Number (test [id number] code = 4411) Blood Expiration Date & Time (test code = 666102) Status Information Issued (test code = 4412) Product Red Blood Cells Identification (test code = 4413) Product Code (test [id number] Performed at [facility] code = 4414) Laboratory Services - [facility] Blood [address] [place] [address] Free: [phone] A No. [id number] [facility] RBC (in units), 1 Units 2021-05-09 06:24:21 Test Item Value Reference Range Interpretation Comments Cross Match Result Compatible (test code = 4409) ISBT Blood Type Code (test code = 418259) Unit Blood Type (test O Pos code = 4410) Unit Number (test [id number] code = 4411) Blood Expiration Date & Time (test code = 723518) Status Information Issued (test code = 4412) Product Red Blood Cells Identification (test code = 4413) Product Code (test [id number] Performed at [facility] code = 4414) Laboratory Services - [facility] Blood [address] [address]Ihwl Free: [phone] A No. [id number] [facility] Test Item Value Reference Range Interpretation Comments MAGNESIUM (test code = 9148023600) 1.8 mg/dL 1.7-2.4 Lab Interpretation (test code = Normal 26987-0) [facility]:22[facility]55 Test Item Value Reference Range Interpretation Comments MAGNESIUM (test code = 4028906396) 1.8 mg/dL 1.7-2.4 Lab Interpretation (test code = Normal 76242-1) [facility] [id number] 06:06:47 Test Item Value Reference Range Interpretation Comments FERRITIN (test code = 64.4 ng/mL 11.0-264.0 2588547305) DIONI (test code = DIONI) Biotin has been reported to cause a negative bias, interpret results relative to patient's use of biotin. Lab Interpretation (test Normal code = 26651-3) [facility] [id number] 06:06:47 Test Item Value Reference Range Interpretation Comments FERRITIN (test code = 64.4 ng/mL 11.0-264.0 1784491960) DIONI (test code = DIONI) Biotin has been reported to cause a negative bias, interpret results relative to patient's use of biotin. Lab Interpretation (test Normal code = 96758-1) [facility] Center[facility] Screen - ONCE [id number] 06:01:50 Test Item Value Reference Range Interpretation Comments ABO & RH (test code O POSITIVE Performe d at [facility] = 20) Laboratory Serv ices - [facility] Blood [facility] [address] [facility] [address]Xloy Free: [phone] A No. [id number] IAT (test code = Negative Performed a t [facility] 1185) Laboratory [facility] Blood [facility] [address] [facility] [address]Urwl Free: [phone] A No. [id number] [facility] - ONCE [id number] 06:01:50 Test Item Value Reference Range Interpretation Comments ABO & RH (test code O POSITIVE Performe d at [facility] = 20) Laboratory [facility] Blood [address] [place] [address]Vpxn Free: [phone] A No. [id number] IAT (test code = Negative Performed a t [facility] 1185) Laboratory [facility] Blood [address] [address]Okbs Free: [phone] A No. [id number] [facility] [id number] 05:42:49 Test Item Value Reference Range Interpretation Comments IRON (test code = 8889114297) 36 ug/dL 50-160 L TIBC (test code = 5848508070) 305 ug/dL 250-410 % FE SAT (test code = 2996965330) 12 % 20-50 L Lab Interpretation (test code = Abnormal 93881-0) [facility] [id number] 05:42:49 Test Item Value Reference Range Interpretation Comments IRON (test code = 6760381223) 36 ug/dL 50-160 L TIBC (test code = 9176135359) 305 ug/dL 250-410 % FE SAT (test code = 6346395117) 12 % 20-50 L Lab Interpretation (test code = Abnormal 57181-9) [facility] (NA, K, CL, CO2, GLUCOSE, BUN, CREATININE, CA)2021-05-09 05:24:44 Test Item Value Reference Range Interpretation Comments NA (test code = 134 mmol/L 135-145 L 1260996823) K (test code = 2.9 mmol/L 3.5-5.0 LL 6566951327) CL (test code = 104 mmol/L 98-108 8090219766) CO2 TOTAL (test code = 26 mmol/L 23-31 3473632188) AGAP (test code = 2-16 4380809521) BUN (test code = 6 mg/dL 7-23 L 5748383456) GLUCOSE (test code = 120 mg/dL 70-110 H 1293844288) CREATININE (test code = 0.39 mg/dL 0.50-1.04 L 8914831454) CALCIUM (test code = 7.9 mg/dL 8.6-10.6 L 1375294499) eGFR (test code = mL/min/1.73m2 5704599784) DIONI (test code = DIONI) Association of Glomerular Filtration Rate (GFR) and Staging of Kidney Disease* + --+ --+ ------+| GFR (mL/min/1.73 m2) ?| With Kidney Damage ?| ?Without Kidney Damage+ --------+ --------+ +| ?>90 ?| ?Stage one ?| ? Normal ?+ ---+ ---+ -------+| ?60-89 ?| ?Stage two ?| ? Decreased GFR ? + --+ --+ ------+| ?30-59 ?| ?Stage three ?| ? Stage three ? + --+ --+ ------+| ?15-29 ?| ?Stage four ? | ? Stage four ?+ ---+ ---+ -------+| ?<15 (or dialysis) ? ?| ?Stage five ? | ? Stage five ?+ ---+ ---+ -------+ *Each stage assumes the associated GFR level has been in effect for at least three months. ?Stages 1 to 5, with or without kidney disease, indicate chronic kidney disease. Notes: Determination of stages one and two (with eGFR >59mL/min/1.73 m2) requires estimation of kidney damage for at least three months as defined by structural or functional abnormalities of the kidney, manifested by either:Pathological abnormalities or Markers of kidney damage (including abnormalities in the composition of the blood or urine or abnormalities in imaging tests). Lab Interpretation Abnormal (test code = 20362-0) [facility] METABOLIC PANEL (NA, K, CL, CO2, GLUCOSE, BUN, CREATININE, CA)2021-05-09 05:24:44 Test Item Value Reference Range Interpretation Comments NA (test code = 134 mmol/L 135-145 L 4081401450) K (test code = 2.9 mmol/L 3.5-5.0 LL 4654972195) CL (test code = 104 mmol/L 98-108 8665126148) CO2 TOTAL (test code = 26 mmol/L 23-31 1156540433) AGAP (test code = 2-16 6884081736) BUN (test code = 6 mg/dL 7-23 L 5530318926) GLUCOSE (test code = 120 mg/dL 70-110 H 1777579624) CREATININE (test code = 0.39 mg/dL 0.50-1.04 L 9259018086) CALCIUM (test code = 7.9 mg/dL 8.6-10.6 L 6907222844) eGFR (test code = mL/min/1.73m2 3893147599) DIONI (test code = DIONI) Association of Glomerular Filtration Rate (GFR) and Staging of Kidney Disease* + --+ --+ ------+| GFR (mL/min/1.73 m2) ?| With Kidney Damage ?| ?Without Kidney Damage+ --------+ --------+ +| ?>90 ?| ?Stage one ?| ? Normal ?+ ---+ ---+ -------+| ?60-89 ?| ?Stage two ?| ? Decreased GFR ? + --+ --+ ------+| ?30-59 ?| ?Stage three ?| ? Stage three ? + --+ --+ ------+| ?15-29 ?| ?Stage four ? | ? Stage four ?+ ---+ ---+ -------+| ?<15 (or dialysis) ? ?| ?Stage five ? | ? Stage five ?+ ---+ ---+ -------+ *Each stage assumes the associated GFR level has been in effect for at least three months. ?Stages 1 to 5, with or without kidney disease, indicate chronic kidney disease. Notes: Determination of stages one and two (with eGFR >59mL/min/1.73 m2) requires estimation of kidney damage for at least three months as defined by structural or functional abnormalities of the kidney, manifested by either:Pathological abnormalities or Markers of kidney damage (including abnormalities in the composition of the blood or urine or abnormalities in imaging tests). Lab Interpretation Abnormal (test code = 06153-5) [facility] [id number] 05:16:46 Test Item Value Reference Interpretation Comments Range TROPONIN I (test 0.323 ng/mL See_Comment H [Automated code = 0972278684) message] The system which generated this result transmitted reference range : <=0.034. The reference range was not used to interpret this result as normal/abnormal . DIONI (test code = Reference (Normal) DIONI) Range (defined by the 99th percentile reference limit): <= 0.034 ng/mL Note: Cardiac troponin begins to rise 3-4 hours after the onset of ischemia. Repeat in 4-6 hours if the sample was drawn within 3-4 hours of the onset of the symptom and found normal. Diagnosis of myocardial injury is made with acute changes in cTn concentrations with at least one serial sample above the 99th percentile upper reference limit (URL), taken together with the patient's clinical presentation. Biotin has been reported to cause a negative bias, interpret results relative to patient's use of biotin. Lab Interpretation Abnormal (test code = 99627-3) [facility] [id number] 05:16:46 Test Item Value Reference Interpretation Comments Range TROPONIN I (test 0.323 ng/mL See_Comment H [Automated code = 1184914064) message] The system which generated this result transmitted reference range : <=0.034. The reference range was not used to interpret this result as normal/abnormal . DIONI (test code = Reference (Normal) DIONI) Range (defined by the 99th percentile reference limit): <= 0.034 ng/mL Note: Cardiac troponin begins to rise 3-4 hours after the onset of ischemia. Repeat in 4-6 hours if the sample was drawn within 3-4 hours of the onset of the symptom and found normal. Diagnosis of myocardial injury is made with acute changes in cTn concentrations with at least one serial sample above the 99th percentile upper reference limit (URL), taken together with the patient's clinical presentation. Biotin has been reported to cause a negative bias, interpret results relative to patient's use of biotin. Lab Interpretation Abnormal (test code = 95506-5) [facility]th[facility] Time / [id number] 05:03:22 Test Item Value Reference Range Interpretation Comments PROTIME PATIENT (test See_Comment H [Auto mated message] code = 5964-2) The system [employer] generated this result transmitted ref erence range: 10.1 - 1 2.6 Seconds. The reference range was not used to int erpret this result as normal/abnormal . INR (test code = 6301-6) Nor mal INR <1.1; Warfarin Therap eutic range 2.0 to 3. 0 or 2.5 to 3.5, dep ending upon the indica tions. Lab Interpretation (test Abnormal code = 65744-2) [facility] 05:03:22 Test Item Value Reference Range Interpretation Comments APTT Patient (test code = See_Comment [ Automated message] 3173-2) The system [employer] generated this result transmitted ref erence range: 26 - 36 Seconds. The re ference range was not u sed to interpret this result as normal/abnor mal. Lab Interpretation (test Normal code = 75829-4) [facility]2021-[facility]-04 05:03:22 Test Item Value Reference Range Interpretation Comments Fibrinogen (test code = 6049102991) 325 mg/dL 167-453 Lab Interpretation (test code = Normal 59053-0) [facility] Center[facility] Time / [id number] 05:03:22 Test Item Value Reference Range Interpretation Comments PROTIME PATIENT (test See_Comment H [Auto mated message] code = 5964-2) The system [employer] generated this result transmitted ref erence range: 10.1 - 1 2.6 Seconds. The reference range was not used to int erpret this result as normal/abnormal . INR (test code = 6301-6) Nor mal INR <1.1; Warfarin Therap eutic range 2.0 to 3. 0 or 2.5 to 3.5, dep ending upon the indica tions. Lab Interpretation (test Abnormal code = 97415-3) [facility] Test Item Value Reference Range Interpretation Comments APTT Patient (test code = See_Comment [ Automated message] 3173-2) The system Pounce generated this result transmitted ref erence range: 26 - 36 Seconds. The re ference range was not u sed to interpret this result as normal/abnor mal. Lab Interpretation (test Normal code = 07806-6) [facility]22 Test Item Value Reference Range Interpretation Comments Fibrinogen (test code = 2575554498) 325 mg/dL 167-453 Lab Interpretation (test code = Normal 69693-0) [facility] (ALB,T.PRO,BILI T,BU/BC,ALT,AST,ALK PHOS)2021-05-09 05:02:01 Test Item Value Reference Range Interpretation Comments TOTAL BILI (test code = 5351179085) 1.0 mg/dL 0.1-1.1 BILI UNCON (test code = 9464231910) 0.6 mg/dL 0.1-1.1 BILI CONJ (test code = 2064141160) 0.0 mg/dL 0.0-0.3 T PROTEIN (test code = 4446436765) 6.2 g/dL 6.3-8.2 L ALBUMIN (test code = 2324765242) 2.9 g/dL 3.5-5.0 L ALK PHOS (test code = 8821999636) 62 U/L 34-122 ALTv (test code = 1742-6) 28 U/L 5-35 AST(SGOT) (test code = 4903822522) 54 U/L 13-40 H Lab Interpretation (test code = Abnormal 74517-1) [facility]02112[facility] (ALB,T.PRO,BILI T,BU/BC,ALT,AST,ALK PHOS)2021-05-09 05:02:01 Test Item Value Reference Range Interpretation Comments TOTAL BILI (test code = 5402305816) 1.0 mg/dL 0.1-1.1 BILI UNCON (test code = 8571972440) 0.6 mg/dL 0.1-1.1 BILI CONJ (test code = 2141759211) 0.0 mg/dL 0.0-0.3 T PROTEIN (test code = 1957661092) 6.2 g/dL 6.3-8.2 L ALBUMIN (test code = 6871009331) 2.9 g/dL 3.5-5.0 L ALK PHOS (test code = 5124194024) 62 U/L 34-122 ALTv (test code = 1742-6) 28 U/L 5-35 AST(SGOT) (test code = 6205844223) 54 U/L 13-40 H Lab Interpretation (test code = Abnormal 89915-1) [facility] WITH [id number] 04:54:02 Test Item Value Reference Range Interpretation Comments WBC (test code = See_Comment [Automated 6690-2) message] The sy stem which generated this result transmitted reference range : 4.30 - 11.10 10*3/?L. The reference range was not used to interpret this result as normal/abnormal . RBC (test code = See_Comment L [Automated 789-8) message] The sy stem which generated this result transmitted reference range : 3.93 - 5.25 10*6/?L. The reference range was not used to interpret this result as normal/abnormal . HGB (test code = 6.7 g/dL 11.6-15.0 L 718-7) HCT (test code = 21.8 % 35.7-45.2 L 4544-3) MCV (test code = 74.4 fL 80.6-95.5 L 787-2) MCH (test code = 22.9 pg 25.9-32.8 L 785-6) MCHC (test code = 30.7 g/dL 31.6-35.1 L 786-4) RDW-SD (test code = 57.2 fL 39.0-49.9 H 58730-3) RDW-CV (test code = 22.0 % 12.0-15.5 H 788-0) PLT (test code = See_Comment H [Automated 777-3) message] The sy stem which generated this result transmitted reference range : 166 - 358 10*3/ ?L. The reference r james was not used to interpret this result as normal/abnormal . MPV (test code = 10.4 fL 9.5-12.9 27873-8) NRBC/100 WBC (test See_Comment [Automat ed code = 8013548237) message] The system which generated this result transmitted reference range : 0.0 - 10.0 /100 WBCs. The refer ence range was not u sed to interpret th is result as normal/abnormal . NRBC x10^3 (test code <0.01 See_Comment [Auto mated = 0279657172) message] The s ystem which generated this result transmitted reference range : 10*3/?L. The reference range was not used to interpret this result as normal/abnormal . GRAN MAT (NEUT) % 71.7 % (test code = 770-8) IMM GRAN % (test code 0.60 % = 3765326077) LYMPH % (test code = 16.7 % 736-9) MONO % (test code = 10.0 % 5905-5) EOS % (test code = 0.8 % 713-8) BASO % (test code = 0.2 % 706-2) GRAN MAT x10^3(ANC) 6.26 10*3/uL 1.88-7.09 (test code = 7572452557) IMM GRAN x10^3 (test 0.05 10*3/uL 0.00-0.06 code = 5882351884) LYMPH x10^3 (test code 1.46 10*3/uL 1.32-3.29 = 731-0) MONO x10^3 (test code 0.87 10*3/uL 0.33-0.92 = 742-7) EOS x10^3 (test code = 0.07 10*3/uL 0.03-0.39 711-2) BASO x10^3 (test code <0.03 0.01-0.07 = 704-7) Lab Interpretation Abnormal (test code = 87091-7) [facility] WITH [id number] 04:54:02 Test Item Value Reference Range Interpretation Comments WBC (test code = See_Comment [Automated 6690-2) message] The sy stem which generated this result transmitted reference range : 4.30 - 11.10 10*3/?L. The reference range was not used to interpret this result as normal/abnormal . RBC (test code = See_Comment L [Automated 789-8) message] The sy stem which generated this result transmitted reference range : 3.93 - 5.25 10*6/?L. The reference range was not used to interpret this result as normal/abnormal . HGB (test code = 6.7 g/dL 11.6-15.0 L 718-7) HCT (test code = 21.8 % 35.7-45.2 L 4544-3) MCV (test code = 74.4 fL 80.6-95.5 L 787-2) MCH (test code = 22.9 pg 25.9-32.8 L 785-6) MCHC (test code = 30.7 g/dL 31.6-35.1 L 786-4) RDW-SD (test code = 57.2 fL 39.0-49.9 H 14295-9) RDW-CV (test code = 22.0 % 12.0-15.5 H 788-0) PLT (test code = See_Comment H [Automated 777-3) message] The sy stem which generated this result transmitted reference range : 166 - 358 10*3/ ?L. The reference r james was not used to interpret this result as normal/abnormal . MPV (test code = 10.4 fL 9.5-12.9 14589-7) NRBC/100 WBC (test See_Comment [Automat ed code = 0461952586) message] The system which generated this result transmitted reference range : 0.0 - 10.0 /100 WBCs. The refer ence range was not u sed to interpret th is result as normal/abnormal . NRBC x10^3 (test code <0.01 See_Comment [Auto mated = 1818281231) message] The s ystem which generated this result transmitted reference range : 10*3/?L. The reference range was not used to interpret this result as normal/abnormal . GRAN MAT (NEUT) % 71.7 % (test code = 770-8) IMM GRAN % (test code 0.60 % = 4319651804) LYMPH % (test code = 16.7 % 736-9) MONO % (test code = 10.0 % 5905-5) EOS % (test code = 0.8 % 713-8) BASO % (test code = 0.2 % 706-2) GRAN MAT x10^3(ANC) 6.26 10*3/uL 1.88-7.09 (test code = 9817476995) IMM GRAN x10^3 (test 0.05 10*3/uL 0.00-0.06 code = 5623757462) LYMPH x10^3 (test code 1.46 10*3/uL 1.32-3.29 = 731-0) MONO x10^3 (test code 0.87 10*3/uL 0.33-0.92 = 742-7) EOS x10^3 (test code = 0.07 10*3/uL 0.03-0.39 711-2) BASO x10^3 (test code <0.03 0.01-0.07 = 704-7) Lab Interpretation Abnormal (test code = 67361-8) [facility] W/AUTO [id number] 00:00:00 Test Item Value Reference Range Interpretation Comments WBC (test code = 1001) 13.4 K/UL RBC (test code = 1002) 2.83 M/UL HEMOGLOBIN (test code = 1003) 6.3 G/DL HEMATOCRIT (test code = 1004) 21.4 % MCV (test code = 1005) 75.6 fL MCH (test code = 1006) 22.3 PG MCHC (test code = 1007) 29.4 G/DL RDW (test code = 1038) 20.1 % NEUTROPHILS (test code = 1008) 80.2 % LYMPHOCYTES (test code = 1010) 8.9 % MONOCYTES (test code = 1011) 9.8 % EOSINOPHILS (test code = 1012) 0.2 % BASOPHILS (test code = 1013) 0.2 % IMMATURE GRANYLOCYTES (test 0.7 % code = 1036) NUCLEATED RBCS (test code = 0.0 /100WBC'S 1065) PLATELET COUNT (test code = 391 K/UL 1015) ABSOLUTE NEUTROPHILS (test code 10.75 K/UL = 1066) ABSOLUTE LYMPHOCYTES (test code 1.19 K/UL = 1067) ABSOLUTE MONOCYTES (test code = 1.31 K/UL 1068) ABSOLUTE EOSINOPHILS (test code 0.03 K/UL = 1040) ABSOLUTE BASOPHILS (test code = 0.03 K/UL 1069) ABS IMMATURE GRANULOCYTES (test 0.09 K/UL code = 1020) ABS NUCLEATED RBCS (test code = 0.05 K/UL 89448) COMMENTS (test code = 1016) (NOTE) CBC W/AUTO [id number] 00:00:00 Test Item Value Reference Range Interpretation Comments WBC (test code = 1001) 13.4 K/UL RBC (test code = 1002) 2.83 M/UL HEMOGLOBIN (test code = 1003) 6.3 G/DL HEMATOCRIT (test code = 1004) 21.4 % MCV (test code = 1005) 75.6 fL MCH (test code = 1006) 22.3 PG MCHC (test code = 1007) 29.4 G/DL RDW (test code = 1038) 20.1 % NEUTROPHILS (test code = 1008) 80.2 % LYMPHOCYTES (test code = 1010) 8.9 % MONOCYTES (test code = 1011) 9.8 % EOSINOPHILS (test code = 1012) 0.2 % BASOPHILS (test code = 1013) 0.2 % IMMATURE GRANYLOCYTES (test 0.7 % code = 1036) NUCLEATED RBCS (test code = 0.0 /100WBC'S 1065) PLATELET COUNT (test code = 391 K/UL 1015) ABSOLUTE NEUTROPHILS (test code 10.75 K/UL = 1066) ABSOLUTE LYMPHOCYTES (test code 1.19 K/UL = 1067) ABSOLUTE MONOCYTES (test code = 1.31 K/UL 1068) ABSOLUTE EOSINOPHILS (test code 0.03 K/UL = 1040) ABSOLUTE BASOPHILS (test code = 0.03 K/UL 1069) ABS IMMATURE GRANULOCYTES (test 0.09 K/UL code = 1020) ABS NUCLEATED RBCS (test code = 0.05 K/UL 34904) COMMENTS (test code = 1016) (NOTE) CBC W/AUTO [id number] 00:00:00 Test Item Value Reference Range Interpretation Comments WBC (test code = 1001) 13.4 K/UL RBC (test code = 1002) 2.83 M/UL HEMOGLOBIN (test code = 1003) 6.3 G/DL HEMATOCRIT (test code = 1004) 21.4 % MCV (test code = 1005) 75.6 fL MCH (test code = 1006) 22.3 PG MCHC (test code = 1007) 29.4 G/DL RDW (test code = 1038) 20.1 % NEUTROPHILS (test code = 1008) 80.2 % LYMPHOCYTES (test code = 1010) 8.9 % MONOCYTES (test code = 1011) 9.8 % EOSINOPHILS (test code = 1012) 0.2 % BASOPHILS (test code = 1013) 0.2 % IMMATURE GRANYLOCYTES (test 0.7 % code = 1036) NUCLEATED RBCS (test code = 0.0 /100WBC'S 1065) PLATELET COUNT (test code = 391 K/UL 1015) ABSOLUTE NEUTROPHILS (test code 10.75 K/UL = 1066) ABSOLUTE LYMPHOCYTES (test code 1.19 K/UL = 1067) ABSOLUTE MONOCYTES (test code = 1.31 K/UL 1068) ABSOLUTE EOSINOPHILS (test code 0.03 K/UL = 1040) ABSOLUTE BASOPHILS (test code = 0.03 K/UL 1069) ABS IMMATURE GRANULOCYTES (test 0.09 K/UL code = 1020) ABS NUCLEATED RBCS (test code = 0.05 K/UL 93121) COMMENTS (test code = 1016) (NOTE) COMPREHENSIVE METABOLIC [id number] 00:00:00 Test Item Value Reference Range Interpretation Comments GLUCOSE (test code = 2217) 129 MG/DL BUN (test code = 2208) 6 MG/DL CREATININE (test code = 2214) 0.51 MG/DL eGFR AMER. (test code 117 ML/MIN/1.73 = 01633) eGFR NON- AMER. (test 101 ML/MIN/1.73 code = 33385) CALC BUN/CREAT (test code = 12 RATIO 2235) SODIUM (test code = 2231) 133 MEQ/L POTASSIUM (test code = 2228) 3.6 MEQ/L CHLORIDE (test code = 2215) 98 MEQ/L CARBON DIOXIDE (test code = 24 MEQ/L 220) CALCIUM (test code = 2209) 8.3 MG/DL PROTEIN, TOTAL (test code = 6.8 G/DL 2228) ALBUMIN (test code = 2201) 3.4 G/DL CALC GLOBULIN (test code = 3.4 G/DL 2240) CALC A/G RATIO (test code = 1.0 RATIO 2234) BILIRUBIN, TOTAL (test code = 1.0 MG/DL 2206) ALKALINE PHOSPHATASE (test 77 U/L code = 2204) AST (test code = 2218) 61 U/L ALT (test code = 2219) 34 U/L COMPREHENSIVE METABOLIC [id number] 00:00:00 Test Item Value Reference Range Interpretation Comments GLUCOSE (test code = 2217) 129 MG/DL BUN (test code = 2208) 6 MG/DL CREATININE (test code = 2214) 0.51 MG/DL eGFR AMER. (test code 117 ML/MIN/1.73 = 92138) eGFR NON- AMER. (test 101 ML/MIN/1.73 code = 65541) CALC BUN/CREAT (test code = 12 RATIO 2235) SODIUM (test code = 2231) 133 MEQ/L POTASSIUM (test code = 2228) 3.6 MEQ/L CHLORIDE (test code = 2215) 98 MEQ/L CARBON DIOXIDE (test code = 24 MEQ/L 2205) CALCIUM (test code = 2209) 8.3 MG/DL PROTEIN, TOTAL (test code = 6.8 G/DL 2228) ALBUMIN (test code = 2201) 3.4 G/DL CALC GLOBULIN (test code = 3.4 G/DL 2240) CALC A/G RATIO (test code = 1.0 RATIO 2234) BILIRUBIN, TOTAL (test code = 1.0 MG/DL 2206) ALKALINE PHOSPHATASE (test 77 U/L code = 2204) AST (test code = 2218) 61 U/L ALT (test code = 2219) 34 U/L CBC W/AUTO [id number] 00:00:00 Test Item Value Reference Range Interpretation Comments WBC (test code = 1001) 13.4 K/UL RBC (test code = 1002) 2.83 M/UL HEMOGLOBIN (test code = 1003) 6.3 G/DL HEMATOCRIT (test code = 1004) 21.4 % MCV (test code = 1005) 75.6 fL MCH (test code = 1006) 22.3 PG MCHC (test code = 1007) 29.4 G/DL RDW (test code = 1038) 20.1 % NEUTROPHILS (test code = 1008) 80.2 % LYMPHOCYTES (test code = 1010) 8.9 % MONOCYTES (test code = 1011) 9.8 % EOSINOPHILS (test code = 1012) 0.2 % BASOPHILS (test code = 1013) 0.2 % IMMATURE GRANYLOCYTES (test 0.7 % code = 1036) NUCLEATED RBCS (test code = 0.0 /100WBC'S 1065) PLATELET COUNT (test code = 391 K/UL 1015) ABSOLUTE NEUTROPHILS (test code 10.75 K/UL = 1066) ABSOLUTE LYMPHOCYTES (test code 1.19 K/UL = 1067) ABSOLUTE MONOCYTES (test code = 1.31 K/UL 1068) ABSOLUTE EOSINOPHILS (test code 0.03 K/UL = 1040) ABSOLUTE BASOPHILS (test code = 0.03 K/UL 1069) ABS IMMATURE GRANULOCYTES (test 0.09 K/UL code = 1020) ABS NUCLEATED RBCS (test code = 0.05 K/UL 58675) COMMENTS (test code = 1016) (NOTE) CBC W/AUTO [id number] 00:00:00 Test Item Value Reference Range Interpretation Comments WBC (test code = 1001) 13.4 K/UL RBC (test code = 1002) 2.83 M/UL HEMOGLOBIN (test code = 1003) 6.3 G/DL HEMATOCRIT (test code = 1004) 21.4 % MCV (test code = 1005) 75.6 fL MCH (test code = 1006) 22.3 PG MCHC (test code = 1007) 29.4 G/DL RDW (test code = 1038) 20.1 % NEUTROPHILS (test code = 1008) 80.2 % LYMPHOCYTES (test code = 1010) 8.9 % MONOCYTES (test code = 1011) 9.8 % EOSINOPHILS (test code = 1012) 0.2 % BASOPHILS (test code = 1013) 0.2 % IMMATURE GRANYLOCYTES (test 0.7 % code = 1036) NUCLEATED RBCS (test code = 0.0 /100WBC'S 1065) PLATELET COUNT (test code = 391 K/UL 1015) ABSOLUTE NEUTROPHILS (test code 10.75 K/UL = 1066) ABSOLUTE LYMPHOCYTES (test code 1.19 K/UL = 1067) ABSOLUTE MONOCYTES (test code = 1.31 K/UL 1068) ABSOLUTE EOSINOPHILS (test code 0.03 K/UL = 1040) ABSOLUTE BASOPHILS (test code = 0.03 K/UL 1069) ABS IMMATURE GRANULOCYTES (test 0.09 K/UL code = 1020) ABS NUCLEATED RBCS (test code = 0.05 K/UL 79715) COMMENTS (test code = 1016) (NOTE) CBC W/AUTO [id number] 00:00:00 Test Item Value Reference Range Interpretation Comments WBC (test code = 1001) 13.4 K/UL RBC (test code = 1002) 2.83 M/UL HEMOGLOBIN (test code = 1003) 6.3 G/DL HEMATOCRIT (test code = 1004) 21.4 % MCV (test code = 1005) 75.6 fL MCH (test code = 1006) 22.3 PG MCHC (test code = 1007) 29.4 G/DL RDW (test code = 1038) 20.1 % NEUTROPHILS (test code = 1008) 80.2 % LYMPHOCYTES (test code = 1010) 8.9 % MONOCYTES (test code = 1011) 9.8 % EOSINOPHILS (test code = 1012) 0.2 % BASOPHILS (test code = 1013) 0.2 % IMMATURE GRANYLOCYTES (test 0.7 % code = 1036) NUCLEATED RBCS (test code = 0.0 /100WBC'S 1065) PLATELET COUNT (test code = 391 K/UL 1015) ABSOLUTE NEUTROPHILS (test code 10.75 K/UL = 1066) ABSOLUTE LYMPHOCYTES (test code 1.19 K/UL = 1067) ABSOLUTE MONOCYTES (test code = 1.31 K/UL 1068) ABSOLUTE EOSINOPHILS (test code 0.03 K/UL = 1040) ABSOLUTE BASOPHILS (test code = 0.03 K/UL 1069) ABS IMMATURE GRANULOCYTES (test 0.09 K/UL code = 1020) ABS NUCLEATED RBCS (test code = 0.05 K/UL 60641) COMMENTS (test code = 1016) (NOTE) COMPREHENSIVE METABOLIC [id number] 00:00:00 Test Item Value Reference Range Interpretation Comments GLUCOSE (test code = 2217) 129 MG/DL BUN (test code = 2208) 6 MG/DL CREATININE (test code = 2214) 0.51 MG/DL eGFR AMER. (test code 117 ML/MIN/1.73 = 76069) eGFR NON- AMER. (test 101 ML/MIN/1.73 code = 01774) CALC BUN/CREAT (test code = 12 RATIO 2235) SODIUM (test code = 2231) 133 MEQ/L POTASSIUM (test code = 2228) 3.6 MEQ/L CHLORIDE (test code = 2215) 98 MEQ/L CARBON DIOXIDE (test code = 24 MEQ/L 2206) CALCIUM (test code = 2209) 8.3 MG/DL PROTEIN, TOTAL (test code = 6.8 G/DL 2229) ALBUMIN (test code = 2201) 3.4 G/DL CALC GLOBULIN (test code = 3.4 G/DL 2240) CALC A/G RATIO (test code = 1.0 RATIO 2234) BILIRUBIN, TOTAL (test code = 1.0 MG/DL 220) ALKALINE PHOSPHATASE (test 77 U/L code = 2204) AST (test code = 2218) 61 U/L ALT (test code = 2219) 34 U/L COMPREHENSIVE METABOLIC [id number] 00:00:00 Test Item Value Reference Range Interpretation Comments GLUCOSE (test code = 2217) 129 MG/DL BUN (test code = 2208) 6 MG/DL CREATININE (test code = 2214) 0.51 MG/DL eGFR AMER. (test code 117 ML/MIN/1.73 = 41945) eGFR NON- AMER. (test 101 ML/MIN/1.73 code = 47204) CALC BUN/CREAT (test code = 12 RATIO 2235) SODIUM (test code = 2231) 133 MEQ/L POTASSIUM (test code = 2228) 3.6 MEQ/L CHLORIDE (test code = 2215) 98 MEQ/L CARBON DIOXIDE (test code = 24 MEQ/L 2205) CALCIUM (test code = 2209) 8.3 MG/DL PROTEIN, TOTAL (test code = 6.8 G/DL 2229) ALBUMIN (test code = 2201) 3.4 G/DL CALC GLOBULIN (test code = 3.4 G/DL 2240) CALC A/G RATIO (test code = 1.0 RATIO 2234) BILIRUBIN, TOTAL (test code = 1.0 MG/DL 2207) ALKALINE PHOSPHATASE (test 77 U/L code = 2204) AST (test code = 2218) 61 U/L ALT (test code = 2219) 34 U/L CBC W/AUTO [id number] 00:00:00 Test Item Value Reference Range Interpretation Comments WBC (test code = 1001) 13.4 K/UL RBC (test code = 1002) 2.83 M/UL HEMOGLOBIN (test code = 1003) 6.3 G/DL HEMATOCRIT (test code = 1004) 21.4 % MCV (test code = 1005) 75.6 fL MCH (test code = 1006) 22.3 PG MCHC (test code = 1007) 29.4 G/DL RDW (test code = 1038) 20.1 % NEUTROPHILS (test code = 1008) 80.2 % LYMPHOCYTES (test code = 1010) 8.9 % MONOCYTES (test code = 1011) 9.8 % EOSINOPHILS (test code = 1012) 0.2 % BASOPHILS (test code = 1013) 0.2 % IMMATURE GRANYLOCYTES (test 0.7 % code = 1036) NUCLEATED RBCS (test code = 0.0 /100WBC'S 1065) PLATELET COUNT (test code = 391 K/UL 1015) ABSOLUTE NEUTROPHILS (test code 10.75 K/UL = 1066) ABSOLUTE LYMPHOCYTES (test code 1.19 K/UL = 1067) ABSOLUTE MONOCYTES (test code = 1.31 K/UL 1068) ABSOLUTE EOSINOPHILS (test code 0.03 K/UL = 1040) ABSOLUTE BASOPHILS (test code = 0.03 K/UL 1069) ABS IMMATURE GRANULOCYTES (test 0.09 K/UL code = 1020) ABS NUCLEATED RBCS (test code = 0.05 K/UL 14071) COMMENTS (test code = 1016) (NOTE) CBC W/AUTO [id number] 00:00:00 Test Item Value Reference Range Interpretation Comments WBC (test code = 1001) 13.4 K/UL RBC (test code = 1002) 2.83 M/UL HEMOGLOBIN (test code = 1003) 6.3 G/DL HEMATOCRIT (test code = 1004) 21.4 % MCV (test code = 1005) 75.6 fL MCH (test code = 1006) 22.3 PG MCHC (test code = 1007) 29.4 G/DL RDW (test code = 1038) 20.1 % NEUTROPHILS (test code = 1008) 80.2 % LYMPHOCYTES (test code = 1010) 8.9 % MONOCYTES (test code = 1011) 9.8 % EOSINOPHILS (test code = 1012) 0.2 % BASOPHILS (test code = 1013) 0.2 % IMMATURE GRANYLOCYTES (test 0.7 % code = 1036) NUCLEATED RBCS (test code = 0.0 /100WBC'S 1065) PLATELET COUNT (test code = 391 K/UL 1015) ABSOLUTE NEUTROPHILS (test code 10.75 K/UL = 1066) ABSOLUTE LYMPHOCYTES (test code 1.19 K/UL = 1067) ABSOLUTE MONOCYTES (test code = 1.31 K/UL 1068) ABSOLUTE EOSINOPHILS (test code 0.03 K/UL = 1040) ABSOLUTE BASOPHILS (test code = 0.03 K/UL 1069) ABS IMMATURE GRANULOCYTES (test 0.09 K/UL code = 1020) ABS NUCLEATED RBCS (test code = 0.05 K/UL 82521) COMMENTS (test code = 1016) (NOTE) CBC W/AUTO [id number] 00:00:00 Test Item Value Reference Range Interpretation Comments WBC (test code = 1001) 13.4 K/UL RBC (test code = 1002) 2.83 M/UL HEMOGLOBIN (test code = 1003) 6.3 G/DL HEMATOCRIT (test code = 1004) 21.4 % MCV (test code = 1005) 75.6 fL MCH (test code = 1006) 22.3 PG MCHC (test code = 1007) 29.4 G/DL RDW (test code = 1038) 20.1 % NEUTROPHILS (test code = 1008) 80.2 % LYMPHOCYTES (test code = 1010) 8.9 % MONOCYTES (test code = 1011) 9.8 % EOSINOPHILS (test code = 1012) 0.2 % BASOPHILS (test code = 1013) 0.2 % IMMATURE GRANYLOCYTES (test 0.7 % code = 1036) NUCLEATED RBCS (test code = 0.0 /100WBC'S 1065) PLATELET COUNT (test code = 391 K/UL 1015) ABSOLUTE NEUTROPHILS (test code 10.75 K/UL = 1066) ABSOLUTE LYMPHOCYTES (test code 1.19 K/UL = 1067) ABSOLUTE MONOCYTES (test code = 1.31 K/UL 1068) ABSOLUTE EOSINOPHILS (test code 0.03 K/UL = 1040) ABSOLUTE BASOPHILS (test code = 0.03 K/UL 1069) ABS IMMATURE GRANULOCYTES (test 0.09 K/UL code = 1020) ABS NUCLEATED RBCS (test code = 0.05 K/UL 92832) COMMENTS (test code = 1016) (NOTE) COMPREHENSIVE METABOLIC [id number] 00:00:00 Test Item Value Reference Range Interpretation Comments GLUCOSE (test code = 2217) 129 MG/DL BUN (test code = 2208) 6 MG/DL CREATININE (test code = 2214) 0.51 MG/DL eGFR AMER. (test code 117 ML/MIN/1.73 = 27123) eGFR NON- AMER. (test 101 ML/MIN/1.73 code = 15132) CALC BUN/CREAT (test code = 12 RATIO 2235) SODIUM (test code = 2231) 133 MEQ/L POTASSIUM (test code = 2228) 3.6 MEQ/L CHLORIDE (test code = 2215) 98 MEQ/L CARBON DIOXIDE (test code = 24 MEQ/L 2206) CALCIUM (test code = 2209) 8.3 MG/DL PROTEIN, TOTAL (test code = 6.8 G/DL 2228) ALBUMIN (test code = 2201) 3.4 G/DL CALC GLOBULIN (test code = 3.4 G/DL 2240) CALC A/G RATIO (test code = 1.0 RATIO 4) BILIRUBIN, TOTAL (test code = 1.0 MG/DL 2206) ALKALINE PHOSPHATASE (test 77 U/L code = 2204) AST (test code = 2218) 61 U/L ALT (test code = 2219) 34 U/L COMPREHENSIVE METABOLIC [id number] 00:00:00 Test Item Value Reference Range Interpretation Comments GLUCOSE (test code = 2217) 129 MG/DL BUN (test code = 2208) 6 MG/DL CREATININE (test code = 2214) 0.51 MG/DL eGFR AMER. (test code 117 ML/MIN/1.73 = 60122) eGFR NON- AMER. (test 101 ML/MIN/1.73 code = 36833) CALC BUN/CREAT (test code = 12 RATIO 2235) SODIUM (test code = 2231) 133 MEQ/L POTASSIUM (test code = 2228) 3.6 MEQ/L CHLORIDE (test code = 2215) 98 MEQ/L CARBON DIOXIDE (test code = 24 MEQ/L 2206) CALCIUM (test code = 2209) 8.3 MG/DL PROTEIN, TOTAL (test code = 6.8 G/DL 2228) ALBUMIN (test code = 2201) 3.4 G/DL CALC GLOBULIN (test code = 3.4 G/DL 0) CALC A/G RATIO (test code = 1.0 RATIO 4) BILIRUBIN, TOTAL (test code = 1.0 MG/DL 2206) ALKALINE PHOSPHATASE (test 77 U/L code = 2204) AST (test code = 2218) 61 U/L ALT (test code = 2219) 34 U/L ECG [id number] 14:03:00 Test Item Value Reference Range Interpretation Comments Lab Interpretation (test code = Abnormal 35482-0) [id number]:03:00 Test Item Value Reference Range Interpretation Comments Lab Interpretation (test code = Abnormal 22426-2) [facility] [id number] 11:00:32Ordered by an unspecified provider.[facility] 2020-09-09 11:00:32Ordered by an unspecified provider.[facility] + automated [id number] 04:38:00 Test Item Value Reference Range Interpretation Comments WBC (test code = 6690-2) 7.1 See_Comment [A utomated message] The system [employer] generated this result transmitted ref erence range: 4.0 - 10 .0 K/L. The refe rence range was not u sed to interpret this result as normal/abnor mal. RBC (test code = 789-8) 3.83 See_Comment L [Au tomated message] The system [employer] generated this result transmitted ref erence range: 4.00 - 5 .00 M/L. The refe rence range was not u sed to interpret this result as normal/abnor mal. MCHC (test code = 786-4) 30.3 See_Comment L [A utomated message] The system [employer] generated this result transmitted ref erence range: [...] See_Comment [Aut omated message] 777-3) The system [employer] generated this result transmitted ref erence range: 150 - 43 0 K/CU MM. The referen ce range was not u sed to interpret this result as normal/abnor mal. MPV (test code = [place] [address]-1) to abnormal [place] te[place] population distribution. nRBC (test code = 413) 0 See_Comment [Aut omated message] The system [employer] generated this result transmitted ref erence range: [...] See_Comment [Aut omated message] 670) The system [employer] generated this result transmitted ref erence range: 1.80 - 8 .00 K/L. The refe rence range was not u sed to interpret this result as normal/abnor mal. # Lymphs (test code = 2.19 See_Comment [Auto mated message] 414) The system [employer] generated this result transmitted ref erence range: 1.48 - 4 .50 K/L. The refe rence range was not u sed to interpret this result as normal/abnor mal. # Monos (test code = 0.63 See_Comment [Autom ated message] 415) The system [employer] generated this result transmitted ref erence range: 0.00 - 1 .30 K/L. The refe rence range was not u sed to interpret this result as normal/abnor mal. # Eos (test code = 416) 0.14 See_Comment [Au tomated message] The system [employer] generated this result transmitted ref erence range: 0.00 - 0 .50 K/L. The refe rence range was not u sed to interpret this result as normal/abnor mal. # Baso (test code = 417) 0.03 See_Comment [A utomated message] The system Pounce generated this result transmitted ref erence range: 0.00 - 0 .20 K/L. The refe rence range was not u sed to interpret this result as normal/abnor mal. Immature 0 % 0-0 Granulocytes-Relative (test code = 2801) Lab Interpretation (test Abnormal code = 19299-1) [facility] with platelet count + automated [id number] 04:38:00 Test Item Value Reference Range Interpretation Comments WBC (test code = 6690-2) 7.1 See_Comment [A utomated message] The system Pounce generated this result transmitted ref erence range: 4.0 - 10 .0 K/L. The refe rence range was not u sed to interpret this result as normal/abnor mal. RBC (test code = 789-8) 3.83 See_Comment L [Au tomated message] The system Pounce generated this result transmitted ref erence range: 4.00 - 5 .00 M/L. The refe rence range was not u sed to interpret this result as normal/abnor mal. MCHC (test code = 786-4) 30.3 See_Comment L [A utomated message] The system Pounce generated this result transmitted ref erence range: [...] code = 205 See_Comment [Aut omated message] 437-3) The system Pounce generated this result transmitted ref erence range: 150 - 43 0 K/CU MM. The referen ce range was not u sed to interpret this result as normal/abnor mal. MPV (test code = [place] 70735-0) to abnormal [place] telet population distribution. nRBC (test code = 413) 0 See_Comment [Aut omated message] The system Pounce generated this result transmitted ref erence range: [...] See_Comment [Aut omated message] 670) The system Pounce generated this result transmitted ref erence range: 1.80 - 8 .00 K/L. The refe rence range was not u sed to interpret this result as normal/abnor mal. # Lymphs (test code = 2.19 See_Comment [Auto mated message] 414) The system Pounce generated this result transmitted ref erence range: 1.48 - 4 .50 K/L. The refe rence range was not u sed to interpret this result as normal/abnor mal. # Monos (test code = 0.63 See_Comment [Autom ated message] 415) The system Pounce generated this result transmitted ref erence range: 0.00 - 1 .30 K/L. The refe rence range was not u sed to interpret this result as normal/abnor mal. # Eos (test code = 416) 0.14 See_Comment [Au tomated message] The system Pounce generated this result transmitted ref erence range: 0.00 - 0 .50 K/L. The refe rence range was not u sed to interpret this result as normal/abnor mal. # Baso (test code = 417) 0.03 See_Comment [A utomated message] The system Pounce generated this result transmitted ref erence range: 0.00 - 0 .20 K/L. The refe rence range was not u sed to interpret this result as normal/abnor mal. Immature 0 % 0-0 Granulocytes-Relative (test code = 2801) Lab Interpretation (test Abnormal code = 83292-6) [facility] W/PLT COUNT & AUTO [id number] 04:38:00 Test Item Value Reference Range Interpretation [...] GRANULOCYTES-RELATIVE PERCENT (BEAKER) (test code = 2801) [id number] 04:32:00 Test Item Value Reference Range Interpretation Comments Magnesium (test code = 1.7 mg/dL 1.5-3 70634-1) DIONI (test code = DIONI) Chocolate Dipper ID - LITOOperator ID - LITOOperator ID - LITOOperator ID - GRACE Lab Interpretation (test Normal code = 71703-8) [facility] 04[facility]00 Test Item Value Reference Range Interpretation Comments Magnesium (test code = 1.7 mg/dL 1.5-3 59363-8) DIONI (test code = DIONI) Chocolate Dipper ID - LITOOperator ID - LITOOperator ID - LITOOperator ID - GRACE Lab Interpretation (test Normal code = 73505-2) [facility] 04:32:00 Test Item Value Reference Range Interpretation Comments MAGNESIUM (BEAKER) (test code = 1.7 mg/dL 1.5-3.0 627) Chocolate Dipper ID - LITOOperator ID - LITOOperator ID - LITOOperator ID - LITOBasic Metabolic [id number] 04:31:00 Test Item Value Reference Range Interpretation Comments Sodium (test code = 139 meq/L 317-634 1186-2) Potassium (test code 4.0 meq/L 3.6-5.5 = 2823-3) Chloride (test code = 110 meq/L 98-106 H 2074-0) CO2 (test code = 21 meq/L -2027-9) BUN (test code = 10 mg/dL - 3094-0) Creatinine (test code 0.55 mg/dL 0.5-1.2 = 2160-0) Glucose (test code = 88 mg/dL 70-110 2345-7) Calcium (test code = 8.0 mg/dL 8.5-10.5 L 06457-0) EGFR (test code = 111 mL/min/1.73 [place] [address]-8) m NOT ACCURATE CREATININE CLEARANCE IN PREDICTING GLOMERULAR FILTRATION RATE . ESTIMATED GFR I S NOT APPLICABLE FOR DIALYSIS PATIENTS. DIONI (test code = DIONI) Chocolate Dipper ID - LITOOperator ID - LITOOperator ID - LITOOperator ID - LITOOperator ID - LITOOperator ID - LITOOperator ID - LITOOperator ID - LITOOperator ID - GRACE Lab Interpretation Abnormal (test code = 12351-4) [facility] Metabolic [id number] 04:31:00 Test Item Value Reference Range Interpretation Comments Sodium (test code = 139 meq/L 010-174 9561-2) Potassium (test code 4.0 meq/L 3.6-5.5 = 2823-3) Chloride (test code = 110 meq/L 98-106 H 2075-0) CO2 (test code = 21 meq/L 20-29 2028-9) BUN (test code = 10 mg/dL 10-26 3094-0) Creatinine (test code 0.55 mg/dL 0.5-1.2 = 2160-0) Glucose (test code = 88 mg/dL 70-110 2345-7) Calcium (test code = 8.0 mg/dL 8.5-10.5 L 54480-0) EGFR (test code = 111 mL/min/1.73 [place] [address]-9) m NOT ACCURATE CREATININE CLEARANCE IN PREDICTING GLOMERULAR FILTRATION RATE . ESTIMATED GFR I S NOT APPLICABLE FOR DIALYSIS PATIENTS. DIONI (test code = DIONI) Chocolate Dipper ID - LITOOperator ID - LITOOperator ID - LITOOperator ID - LITOOperator ID - LITOOperator ID - LITOOperator ID - LITOOperator ID - LITOOperator ID - GRACE Lab Interpretation Abnormal (test code = 95219-6) [facility] METABOLIC [id number] 04:31:00 Test Item Value Reference Range Interpretation [...] S NOT APPLICABLE FOR DIALYSIS PATIEN TS. Chocolate Dipper ID - LITOOperator ID - LITOOperator ID - LITOOperator ID - LITOOperator ID - LITOOperator ID - LITOOperator ID - LITOOperator ID - LITOOperator ID - AJOSQabntwvlto3518-76-27 04:29:00 Test Item Value Reference Range Interpretation Comments Phosphorus (test code = 3.8 mg/dL 2.5-4.5 2777-1) DIONI (test code = DIONI) Chocolate Dipper ID - GRACE Lab Interpretation (test Normal code = 83816-4) [facility] 04:29:00 Test Item Value Reference Range Interpretation Comments Phosphorus (test code = 3.8 mg/dL 2.5-4.5 2777-1) DIONI (test code = DIONI) Chocolate Dipper ID - GRACE Lab Interpretation (test Normal code = 06541-4) [facility] 04:29:00 Test Item Value Reference Range Interpretation Comments PHOSPHORUS (BEAKER) (test code = 3.8 mg/dL 2.5-4.5 604) Chocolate Dipper ID - [id number] 06:06:00 Test Item Value Reference Range Interpretation Comments MAGNESIUM (BEAKER) (test code = 1.9 mg/dL 1.5-3.0 627) Chocolate Dipper ID - [id number] ID - [id number] ID - [id number] ID - [id number] METABOLIC [id number] 06:05:00 Test Item Value Reference Range Interpretation [...] S NOT APPLICABLE FOR DIALYSIS PATIEN TS. Chocolate Dipper ID - [id number] ID - [id number] ID - [id number] ID - [id number] ID - [id number] ID - [id number] ID - [id number] ID - [id number] ID - [id number] 06:03:00 Test Item Value Reference Range Interpretation Comments PHOSPHORUS (BEAKER) (test code = 3.7 mg/dL 2.5-4.5 604) Chocolate Dipper ID - [id number] W/PLT COUNT & AUTO [id number] 05:39:00 Test Item Value Reference Range Interpretation [...] (BEAKER) (test code = 2801) BASIC METABOLIC [id number] 05:30:00 Test Item Value Reference Range Interpretation [...] S NOT APPLICABLE FOR DIALYSIS PATIEN TS. Chocolate Dipper ID - NALINIOperator ID - NALINIOperator ID - NALINIOperator ID - NALINIOperator ID - NALINIOperator ID - NALINIOperator ID - NALINIOperator ID - NALINIOperator ID - NALINIOperator ID - [id number] 05:29:00 Test Item Value Reference Range Interpretation Comments MAGNESIUM (BEAKER) (test code = 1.6 mg/dL 1.5-3.0 627) Chocolate Dipper ID - NALINIOperator ID - NALINIOperator ID - NALINIOperator ID - TAVO [id number] 05:26:00 Test Item Value Reference Range Interpretation Comments PHOSPHORUS (BEAKER) (test code = 3.6 mg/dL 2.5-4.5 604) Chocolate Dipper ID - NALINICBC W/PLT COUNT & AUTO [id number] 05:17:00 Test Item Value Reference Range Interpretation [...] PERCENT (BEAKER) (test code = 2801) POC-Glucose [id number] 00:11:00 Test Item Value Reference Range Interpretation Comments POC-Glucose Meter (test 91 mg/dL 70-110 : No giana RN/: code = 1538) TESTED AT [address] [address]: Chocolate Dipper/Techni pollo ID = [id number] for Arabella Up Lab Interpretation (test Normal code = 96164-8) [facility] [id number] 00:11:00 Test Item Value Reference Range Interpretation Comments POC-Glucose Meter (test 91 mg/dL 70-110 : No tified RN/MD: code = 1538) TESTED AT [facility] [address] [place] [address]: Chocolate Dipper/Techni pollo ID = [id number] for Arabella Up Lab Interpretation (test Normal code = 35452-0) [facility] [id number] 00:11:00 Test Item Value Reference Range Interpretation Comments POC-GLUCOSE METER 91 mg/dL 70-110 : Notified RN/MD: TESTED ([facility]) (test code = AT [facility] [address]) [place] [address]: Chocolate Dipper/Techni pollo ID = [id number] for Arabella Bah POCT-GLUCOSE [id number] 18:11:00 Test Item Value Reference Range Interpretation Comments POC-GLUCOSE METER 80 mg/dL 70-110 : Notified RN/MD: TESTED ([facility]) (test code = AT [facility] L [address]) [place] [address]: Chocolate Dipper/Techni pollo ID = [id number] for [place]hel h, Lorita POCT-GLUCOSE [id number] 12:32:00 Test Item Value Reference Range Interpretation Comments POC-GLUCOSE METER 75 mg/dL 70-110 : Notified RN/MD: TESTED ([facility]) (test code = AT [facility] L [address]) [place] [address]: Chocolate Dipper/Techni pollo ID = [id number] for Bethel h, Lorita POCT-GLUCOSE [id number] 12:14:00 Test Item Value Reference Range Interpretation Comments POC-GLUCOSE METER 79 mg/dL 70-110 : [facility] [facility] (test code = [address] [facility] [place] [id number]: Chocolate Dipper/Techni pollo ID = [id number] for Bethel h, Lorita [id number] 09:54:00 Test Item Value Reference Range Interpretation Comments PTT (test code = 63.8 See_Comment H Final Infor mation 93777-7) (Auto Output) [Automated mess age] The system Pounce generated this result transmitted ref erence range: 23.0 - 3 5.0 seconds. The reference range was not used to int erpret this result as normal/abnormal . Lab Interpretation (test Abnormal code = 76014-4) [facility] 09:54:00 Test Item Value Reference Range Interpretation Comments PTT (test code = 63.8 See_Comment H Final Infor mation 45217-0) (Auto Output) [Automated mess age] The system Pounce generated this result transmitted ref erence range: 23.0 - 3 5.0 seconds. The reference range was not used to int erpret this result as normal/abnormal . Lab Interpretation (test Abnormal code = 14381-9) [facility] 09:54:00 Test Item Value Reference Range Interpretation Comments PARTIAL THROMBOPLASTIN 63.8 seconds 23.0-35.0 H Final Information TIME (BEAKER) (test (Auto Ou tput) code = 760) [id number] 07:53:00 Test Item Value Reference Range Interpretation Comments MAGNESIUM (BEAKER) 1.8 mg/dL 1.5-3.0 Specimen slightly (test code = 627) hemolyzed Chocolate Dipper ID - [id number] ID - [id number] ID - [id number] ID - zdxs12 [id number] 07:51:00 Test Item Value Reference Range Interpretation Comments PHOSPHORUS (BEAKER) 3.4 mg/dL 2.5-4.5 Specimen slightly (test code = 604) hemolyzed Chocolate Dipper ID - [id number] METABOLIC [id number] 05:16:00 Test Item Value Reference Range Interpretation Comments SODIUM (BEAKER) 140 meq/L 135-148 (test code = 381) POTASSIUM (BEAKER) 3.7 meq/L 3.6-5.5 (test code = 379) CHLORIDE (BEAKER) 110 meq/L 98-106 H (test code = 382) CO2 (BEAKER) (test 23 meq/L - code = 355) BLOOD UREA NITROGEN 7 [...] S NOT APPLICABLE FOR DIALYSIS PATIEN TS. Chocolate Dipper ID - [id number] ID - [id number] ID - [id number] ID - [id number] ID - [id number] ID - [id number] ID - YJIR71Zoejllmv ID - GMRE45Tlesnllv ID - [id number] ID - ZOUD87Eatkmcqh ID - [id number] ID - PCGJ71Ogcakhms ID - [id number] (hemogram only)2020-09-01 04:39:00 Test Item Value Reference Range Interpretation Comments WBC (test code = 6690-2) 8.1 See_Comment [A utomated message] The system Pounce generated this result transmitted ref erence range: 4.0 - 10 .0 K/L. The refe rence range was not u sed to interpret this result as normal/abnor mal. RBC (test code = 789-8) 3.77 See_Comment L [Au tomated message] The system Pounce generated this result transmitted ref erence range: 4.00 - 5 .00 M/L. The refe rence range was not u sed to interpret this result as normal/abnor mal. MCHC (test code = 786-4) 30.5 See_Comment L [A utomated message] The system Pounce generated this result transmitted ref erence range: [...] See_Comment [Aut omated message] 777-3) The system Pounce generated this result transmitted ref erence range: 150 - 43 0 K/CU MM. The referen ce range was not u sed to interpret this result as normal/abnor mal. nRBC (test code = 413) 0 See_Comment [Aut omated message] The system Pounce generated this result transmitted ref erence range: 0 - 0 /1 00 WBC. The refere nce range was not u sed to interpret this result as normal/abnor mal. Lab Interpretation (test Abnormal code = 13251-3) [facility] (hemogram only)2020-09-01 04:39:00 Test Item Value Reference Range Interpretation Comments WBC (test code = 6690-2) 8.1 See_Comment [A utomated message] The system Pounce generated this result transmitted ref erence range: 4.0 - 10 .0 K/L. The refe rence range was not u sed to interpret this result as normal/abnor mal. RBC (test code = 789-8) 3.77 See_Comment L [Au tomated message] The system Pounce generated this result transmitted ref erence range: 4.00 - 5 .00 M/L. The refe rence range was not u sed to interpret this result as normal/abnor mal. MCHC (test code = 786-4) 30.5 See_Comment L [A utomated message] The system Pounce generated this result transmitted ref erence range: [...] See_Comment [Aut omated message] 777-3) The system Pounce generated this result transmitted ref erence range: 150 - 43 0 K/CU MM. The referen ce range was not u sed to interpret this result as normal/abnor mal. nRBC (test code = 413) 0 See_Comment [Aut omated message] The system Pounce generated this result transmitted ref erence range: 0 - 0 /1 00 WBC. The refere nce range was not u sed to interpret this result as normal/abnor mal. Lab Interpretation (test Abnormal code = 52813-2) [facility] (HEMOGRAM ONLY)2020-09-01 04:39:00 Test Item Value [...] WBC 0-0 (BEAKER) (test code = 413) [id number] 01:54:00 Test Item Value Reference Range Interpretation Comments PARTIAL THROMBOPLASTIN 62.6 seconds 23.0-35.0 H Final Information TIME (BEAKER) (test (Auto Ou tput) code = 760) Prepare Leuko-Red [id number] 23:54:00 Test Item Value Reference Range Interpretation Comments CROSSMATCH (test code = 2264) COMPATIBLE Unit ABO (test code = O Pos 1059748) UNIT NUMBER (test code = [id number] 934-0) Status (test code = 7722192) TX_TIMEINCHART Blood Bank Product (test code RED BLOOD CELLS = 2263) PRODUCT CODE (test code = P7847W61 933-2) [facility] [id number] 23:54:00 Test Item Value Reference Range Interpretation Comments CROSSMATCH (test code = 2264) COMPATIBLE Unit ABO (test code = O Pos 9000110) UNIT NUMBER (test code = [id number] 934-0) Status (test code = 4792599) TX_TIMEINCHART Blood Bank Product (test code RED BLOOD CELLS = 2263) PRODUCT CODE (test code = [id number] 933-2) [facility] 16:32:00 Test Item Value Reference Range Interpretation Comments PARTIAL THROMBOPLASTIN 49.5 seconds 23.0-35.0 H Final Information TIME (BEAKER) (test (Auto Ou tput) code = 760) 2D Echo W/Doppler(CW/PW/Color)2020-08-31 09:23:55Ejection FractionSLEH ECHO HEARTLAB MKCKESSON CPACSInterface, External Ris In - 08/31/2020 9:24 AM CD TTransthoracic Echocardiography Report (TTE) Demographics Patient Name LAILA HERNANDEZ Date of Study 08/30/2020 RADHA Gender Female Visit Number [id number] Race Unknown Room Number I202 Number Date of 1955 Referring Physician Age 65 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 Procedure Type of Study TTE procedure:2DECHO W DOPPLER(CW/PW/COLOR) (Routine) Indications:Acute Chest Pain/ Suspected CAD.Clinical HistoryCIRRHOSISHeight: 64 inches Weight: 51.26 kg (113 lbs) BSA: 1.53 m^2 BMI: 19.4 kg/m^2HR: 59 bpm BP: 139/84 mmHg Summary Low normal LV systolic function with an estimated LVEF of 50%. There is mild hypokinesis of the base to mid inferior wall. Grade 1 diastolic dysfunction. Normal RV size and systolic function. Noevidence of pulmonary hypertension; estimated PA systolic pressure of 25 mm Hg, assuming an RA pressure of 3 mm Hg. No pericardial effusion. No previous study to compare from. Signature Findings Left Ventricle Normal LV wall thickness. Left ventricular size is normal. Low normal overall left ventricular systolic function. The visual ejection fraction was estimated 50 %. There ismild hypokinesis of the base to mid inferior wall. Grade 1 diastolic dysfunction (impaired relaxation and low-normal LA pressure). Left Atrium LA size is normal . LA index <29 ml/m2. Right VentricleThe right ventricular chamber size and systolic function are within normal limits. Right Atrium RA size is normal. Aortic Valve The aortic valve is not well visualized. There is no aortic stenosis. There is no aortic regurgitation. Mitral Valve Normal MV structure. Trace mitral regurgitation. Tricuspid Valve The tricuspid valve is not well visualized. Mild tricuspid regurgitation. Estimated peak syst olic PA pressure is 25-30 mmHg (normal range) . Pulmonic Valve No evidence of pulmonary regurgitation. Aorta Aortic root size (SInus of Valsalva diameter) is indeterminate (not well seen) . PericardiumNo pericardial effusion is visualized. IVC/SVC/PA/PV/Pleural The inferior vena cava size is normal . Chambers/Structures Left Atrium LA Dimension: 3.49 cm LA Area: 14.75 cm^2 LA Volume: 51.1 ml LA Vol.Index: 33 ml/m^2 Left Ventricle LVIDd: 4.32 cm LVEDV:84.13 ml LVIDs: 3.12 cm LVESV:38.43 ml LV Septum Diastolic: 1.42 cm LV Septum Systolic: 2 cm LV Length: 7.86 cm LV PW Diastolic: 1.1 cm [...] Velocity: 1.21 m/s Peak Gradient: 5.64 mmHg Mean Velocity: 0.55 m/s Deceleration Time: 334.7 msec Mean Gradient: 1.76 mmHg Area (continuity): 1.49 cm^2 MV Area (PHT): 2.02 cm^2 MR Velocity: 5.04 m/s PISA Radius: 0.55 cm MV EROA (PISA): 1.9 cm^2 Alias Velocity: 0.32 m/s MR Flow Rate (PISA): 60.53 ml/s MR ERO (PISA): 0.12 cm^2 MV VTI: 26.5 cm MV Josse. Peak: Tissue Doppler E' Septal Velo city: 0.08 m/s E' Lateral Velocity: 0.08 m/s Aortic Valve Peak Velocity: 1.21 m/s Mean Velocity: 0.83 m/s Peak Gradient: 5.81 mmHg Mean Gradient: 3.2 mmHg AV Area (continuity): 1.31 cm^2 AV VTI: 30.12 cm [...] Gradient: 3.72 mmHg Estimated PASP: 40.4 [facility]Do[facility](CW/PW/Color)2020-08-31 09:23:55Ejection FractionSLEH ECHO HEARTLAB LEXIE CPACSInterface, External Ris In - 08/31/2020 9:24 AM CDTTransthoracic Echocardiography Report (TTE) Demographics Patient Name LAILA HERNANDEZ Date of Study 08/30/2020 RADHA Gender Female Visit Number [id number] Race Unknown Room Number I202 Number Date of 1955 Referring Physician Age 65 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 Procedure Type of Study TTE procedure:2DECHO W DO PPLER(CW/PW/COLOR) (Routine) Indications:Acute Chest Pain/ Suspected CAD.Clinical HistoryCIRRHOSISHeight: 64 inches Weight: 51.26 [...] %. There is mild hypokinesis of the base to mid inferior wall. Grade 1 diastolic dysfunction (impaired relaxationand low-normal LA pressure). Left Atrium LA size [...] well visualized. Mild tricuspid regurgitation. Estimated peak systo lic PA pressure is 25-30 mmHg (normal range) . Pulmonic Valve No evidence of pulmonary regurgitation. Aorta Aortic root size (SInus of Valsalva diameter) is indeterminate (not well seen) . Pericardium No pericardial effusion is visualized. IVC/SVC/PA/PV/Pleural The inferior vena cava size is normal . C hambers/Structures Left Atrium LA Dimension: 3.49 cm LA Area: 14.75 cm^2 LA Volume: 51.1 ml LA Vol.Index: 33 ml/m^2 Left Ventricle LVIDd: 4.32 cm LVEDV:84.13 ml LVIDs: 3.12 cm LVESV:38.43 ml LV Septum Diastolic: 1.42 cm LV Septum Systolic: 2 cm LV Length: 7.86 cm LV PW Diastolic: 1.1 cm LV FS: 27.8% LV PW Systolic: 1.18 cm LVOT Diameter: 1.75 cm LVEF: 54.3 % Right Atrium RA Systolic Pressure: 10 mmHg Right Ventricle RV Systolic Pressure: 40.4 mmHg Aorta Ao Root S of Pau.: 2.41 cm Doppler/Quantitative Measurements Mitral Valve MV Peak E-Wave: 1.19 m/s MV Peak A-Wave: 0.22 m/s P1/2t: 108.7 msec E/A Ratio: 5.48 Peak Velocity: 1.21 m/s Peak Gradient: 5.64 mmHg Mean Velocity: 0.55 m/s DecelerationTime: 334.7 msec Mean Gradient: 1.76 mmHg Area (continuity): 1.49 cm^2 MV Area (PHT): 2.02 cm^2 MR Velocity: 5.04 m/s PISA Radius: 0.55 cm MV EROA (PISA): 1.9 cm^2 Alias Velocity: 0.32 m/s MR Flow Rate (PISA): 60.53 ml/s MR ERO (PISA): 0.12 cm^2 MV VTI: 26.5 cm MV Josse. Peak: Tissue Doppler E' Septal Velocity: 0.08 m/s E' Lateral Velocity: 0.08 m/s Aortic Valve Peak Velocity: 1.21 m/s Mean Velocity: 0.83 m/s Peak Gradient: 5.81 mmHg Mean Gradient: 3.2 mmHg AV Area (continuity): 1.31 cm^2 AV VTI: 30.12 cm Cusp Separation: 1.55 cm AV DVI: 0.54 LVOT Peak Velocity: 0.8 m/s Peak Gradient: 2.6 mmHg MeanVelocity: 0.44 m/s Mean Gradient: 0.98 mmHg LVOT Diameter: 1.75 cm LVOT VTI: 16.39 cm LVOT Area: 2.41 cm^2 LVOT SV:39.4 ml LVOT CO: 2.32 l/min LVOT CI: 1.52 l/min/m^2 Tricuspid Valve Estimated RVSP: 41.26 mmHg Estimated RAP: 10 mmHg TR Velocity: 2.76 m/s TR Gradient: 30.4 mmHg Pulmonic Valve Peak Velocity: 0.96 m/s Peak Gradient: 3.72 mmHg Estimated PASP[facility] [id number] 07:33:00 Test Item Value Reference Range Interpretation Comments Troponin I (test code = 5.78 ng/mL 0-0.15 59683-8) DIONI (test code = DIONI) Troponin I [...] zdxs12 Lab Interpretation (test Abnormal code = 31725-0) [facility] [id number] 07:33:00 Test Item Value Reference Range Interpretation Comments Troponin I (test code = 5.78 ng/mL 0-0.15 55024-9) DIONI (test code = DIONI) Troponin I [...] zdxs12 Lab Interpretation (test Abnormal code = 17889-5) [facility] [id number] 07:33:00 Test Item Value Reference Range Interpretation [...] failure, acidosis, acute neurological disease, and persistent tachyarrhythmia.Chocolate Dipper ID - [id number] 07:29:00 Test Item Value Reference Range Interpretation Comments MAGNESIUM (BEAKER) 1.8 mg/dL 1.5-3.0 Specimen slightly (test code = 627) hemolyzed Chocolate Dipper ID - [id number] ID - [id number] ID - uyko58Yjjjuclu ID - zdxs12 [id number] 07:27:00 Test Item Value Reference Range Interpretation Comments PHOSPHORUS (BEAKER) 3.0 mg/dL 2.5-4.5 Specimen slightly (test code = 604) hemolyzed Chocolate Dipper ID - [id number] 07:04:00 Test Item Value Reference Range Interpretation Comments PARTIAL THROMBOPLASTIN 38.5 seconds 23.0-35.0 H Final Information TIME (BEAKER) (test (Auto Ou tput) code = 760) Comprehensive metabolic [id number] 05:38:00 Test Item Value Reference Interpretation Comments Range Protein, Total 5.5 See_Comment L Specimen (test code = slightly 2885-2) hemolyzed [Automated message] The system which generated this result transmitted reference range : 6.0 - 8.5 gm/dL . The reference range was not used to interpret this result as normal/abnormal . Albumin (test code 2.6 g/dL 3.5-5 L Specimen = 92188-9) slightly hemolyzed Alkaline 53 U/L 30-115 Phosphatase (test code = 6768-6) Total Bilirubin 0.9 mg/dL 0.1-1.2 Specimen (test code = slightly 1975-2) hemolyzed Sodium (test code = 138 meq/L 489-208 4123-2) Potassium (test 4.4 meq/L 3.6-5.5 Specimen code [...] (test code 7.6 mg/dL 8.5-10.5 L = 73271-3) AST (test code = 52 U/L 5-40 H Specimen 1920-8) slightly hemolyzed ALT (test code = 33 U/L 5-50 Specimen 1742-6) slightly hemolyzed EGFR (test code = 101 mL/min/1.73 [place] [address]-9) m NOT ACCURATE CREATININE CLEARANCE IN PREDICTING GLOMERULAR FILTRATION RATE . ESTIMATED GFR I S NOT APPLICABLE FOR DIALYSIS PATIENTS. DIONI (test code = Chocolate Dipper ID - DIONI) RESORIANOperator ID - RESORIANOperator [...] RESORIAN Lab Interpretation Abnormal (test code = 58792-5) [facility] [id number] 05:38:00 Test Item Value Reference Interpretation Comments Range Protein, Total 5.5 See_Comment L Specimen (test code = slightly 2885-2) hemolyzed [Automated message] The system which generated this result transmitted reference range : 6.0 - 8.5 gm/dL . The reference range was not used to interpret this result as normal/abnormal . Albumin (test code 2.6 g/dL 3.5-5 L Specimen = 00014-8) slightly hemolyzed Alkaline 53 U/L 30-115 Phosphatase (test code = 6768-6) Total Bilirubin 0.9 mg/dL 0.1-1.2 Specimen (test code = slightly 1975-2) hemolyzed Sodium (test code = 138 meq/L 463-144 8499-2) Potassium (test 4.4 meq/L 3.6-5.5 Specimen code [...] (test code 7.6 mg/dL 8.5-10.5 L = 00531-0) AST (test code = 52 U/L 5-40 H Specimen 1920-8) slightly hemolyzed ALT (test code = 33 U/L 5-50 Specimen 1742-6) slightly hemolyzed EGFR (test code = 101 mL/min/1.[place] [address]-1) m NOT ACCURATE CREATININE CLEARANCE IN PREDICTING GLOMERULAR FILTRATION RATE . ESTIMATED GFR I S NOT APPLICABLE FOR DIALYSIS PATIENTS. DIONI (test code = Chocolate Dipper ID - DIONI) RESORIANOperator ID - RESORIANOperator [...] RESORIAN Lab Interpretation Abnormal (test code = 74492-1) [facility] CenterCOMPREHENSIVE METABOLIC [id number] 05:38:00 Test Item Value Reference Range Interpretation [...] S NOT APPLICABLE FOR DIALYSIS PATIEN TS. Chocolate Dipper ID - RESORIANOperator ID - RESORIANOperator ID [...] 0-0 (BEAKER) (test code = 413) TROPONIN [id number] 01:21:00 Test Item Value Reference Range Interpretation Comments TROPONIN I (BEAKER) (test code = 7.43 ng/mL 0.00-0.15 397) Troponin I (TnI) levels [...] failure, acidosis, acute neurological disease, and persistent tachyarrhythmia.Chocolate Dipper ID - [id number] 22:21:00 Test Item Value Reference Range Interpretation Comments PARTIAL THROMBOPLASTIN 33.0 seconds 23.0-35.0 Final Information TIME (BEAKER) (test (Auto Ou tput) code = 760) [id number] 14:16:00 Test Item Value Reference Range Interpretation Comments PARTIAL THROMBOPLASTIN 24.6 seconds 23.0-35.0 Final Information TIME (BEAKER) (test (Auto Ou tput) code = 760) Platelet [id number] 14:02:00 Test Item Value Reference Range Interpretation Comments Platelets (test code = 196 See_Comment [Aut omated message] 777-3) The system Pounce generated this result transmitted ref erence range: 150 - 43 0 K/CU MM. The referen ce range was not u sed to interpret this result as normal/abnor mal. Lab Interpretation (test Normal code = 30607-9) [facility] CenterPlatelet [id number] 14:02:00 Test Item Value Reference Range Interpretation Comments Platelets (test code = 196 See_Comment [Aut omated message] 777-3) The system Pounce generated this result transmitted ref erence range: 150 - 43 0 K/CU MM. The referen ce range was not u sed to interpret this result as normal/abnor mal. Lab Interpretation (test Normal code = 24860-5) [facility] CenterPLATELET [id number] 14:02:00 Test Item Value Reference Range Interpretation Comments PLATELET COUNT (BEAKER) (test 196 K/CU MM 150-430 code = 756) Occult blood, [id number] 10:57:00 Test Item Value Reference Range Interpretation Comments Occult blood (test code = 2335-8) Negative Negative Lab Interpretation (test code = Normal 64715-6) [facility] CenterOccult blood, [id number] 10:57:00 Test Item Value Reference Range Interpretation Comments Occult blood (test code = 2335-8) Negative Negative Lab Interpretation (test code = Normal 62591-8) [facility] CenterOCCULT BLOOD, [id number] 10:57:00 Test Item Value Reference Range Interpretation Comments FECAL OCCULT BLOOD (BEAKER) (test Negative Negative code = 618) [id number] 09:29:00 Test Item Value Reference Range Interpretation Comments MAGNESIUM (BEAKER) (test code = 1.8 mg/dL 1.5-3.0 627) Chocolate Dipper ID - [id number] 05:52:00 Test Item Value Reference Range Interpretation Comments Triglycerides (test 47 mg/dL code = 2571-8) Cholesterol (test code 96 mg/dL = 2093-3) HDL (test code = 27 mg/dL 5-9) LDL Calculated (test 60 mg/dL code = 42620-8) DIONI (test code = DIONI) Triglyceride Reference Range: Low Risk <150 Borderline 150-199 High Risk 200-499 Very High Risk >=500 Cholesterol Reference Range: Low Risk <200 Borderline 200-239 High Risk >240 HDL Cholesterol Reference Range: Low Risk >=60 High Risk <40 LDL Cholesterol Reference Range: Optimal <100 Near Optimal 100-129 Borderline 130-159 High 160-189 Very High >=190 Chocolate Dipper ID - [id number] ID - [id number] ID - [id number] ID - [id number] ID - [id number] ID - [id number] [facility] CenterB-type Natriuretic Factor (BNP)2020-08-30 05:52:00 Test Item Value Reference Range Interpretation Comments BNP (test code = 32176-2) 893 pg/mL 0-100 H DIONI (test code = DIONI) Chocolate Dipper ID - [id number] Lab Interpretation (test Abnormal code = 57450-4) [facility] CenterLipid [id number] 05:52:00 Test Item Value Reference Range Interpretation Comments Triglycerides (test 47 mg/dL code = 2571-8) Cholesterol (test code 96 mg/dL = 2093-3) HDL (test code = 27 mg/dL 9) LDL Calculated (test 60 mg/dL code = 99777-4) DIONI (test code = DIONI) Triglyceride Reference Range: Low Risk <150 Borderline 150-199 High Risk 200-499 Very High Risk >=500 Cholesterol Reference Range: Low Risk <200 Borderline 200-239 High Risk >240 HDL Cholesterol Reference Range: Low Risk >=60 High Risk <40 LDL Cholesterol Reference Range: Optimal <100 Near Optimal 100-129 Borderline 130-159 High 160-189 Very High >=190 Chocolate Dipper ID - [id number] ID - [id number] ID - [id number] ID - [id number] ID - [id number] ID - [id number] [facility] CenterB-[facility] Natriure[facility] Factor (BNP)2020-08-30 05:52:00 Test Item Value Reference Range Interpretation Comments BNP (test code = 88422-9) 893 pg/mL 0-100 H DIONI (test code = DIONI) Chocolate Dipper ID - [id number] Lab Interpretation (test Abnormal code = 98235-7) [facility]-TYPE NATRIURETIC FACTOR (BNP)2020-08-30 05:52:00 Test Item Value Reference Range Interpretation Comments B-TYPE NATRIURETIC PEPTIDE (BEAKER) 893 pg/mL 0-100 H (test code = 700) Chocolate Dipper ID - [id number] 05:52:00 Test Item Value Reference Range Interpretation Comments TRIGLYCERIDES (BEAKER) (test code = 47 mg/dL 540) CHOLESTEROL (BEAKER) (test code = 96 mg/dL 631) HDL CHOLESTEROL (BEAKER) (test code 27 mg/dL = 976) LDL CHOLESTEROL CALCULATED (BEAKER) 60 mg/dL (test code = 633) Triglyceride Reference Range: Low Risk <150 Borderline 150-199 High Risk 200- 499 Very High Risk >=500Cholesterol Reference Range: Low Risk <200 Borderline 200-239 High Risk >240HDL Cholesterol Reference Range: Low Risk >=60 High Risk <40LDL Cholesterol Reference Range: Optimal <100 Near Optimal 100-129 Borderline 130-159 High 160-189 Very High >=190 Chocolate Dipper ID - [id number] ID - [id number] ID - [id number] ID - [id number] ID - [id number] ID - [id number] [id number] 05:49:00 Test Item Value Reference Range Interpretation [...] failure, acidosis, acute neurological disease, and persistent tachyarrhythmia.Chocolate Dipper ID - [id number] METABOLIC [id number] 05:46:00 Test Item Value Reference Range Interpretation [...] 697) EGFR (BEAKER) (test 99 mL/min/1.73 ESTIMA DIANE GFR IS code = 1092) sq m NOT ACCURATE CREATININE CLEARANCE IN PREDICTING GLOMERULAR FILTRATION RATE . ESTIMATED GFR I S NOT APPLICABLE FOR DIALYSIS PATIEN TS. Chocolate Dipper ID - [id number] ID - [id number] ID - [id number] ID - [id number] ID - [id number] ID - [id number] ID - [id number] ID - [id number] ID - [id number] ID - [id number] W/PLT COUNT & AUTO [id number] 05:35:00 Test Item Value Reference Range Interpretation [...] (test code = 2801) Rapid drug screen, [id number] 04:13:00 Test Item Value Reference Range Interpretation Comments Barbiturate Screen Negative Negative (test code = 59215-9) Benzodiazepine Screen Negative Negative (test code = 73480-2) Cocaine (Metab.) Negative Negative Screen (test code = 3397-7) Methadone Screen (test Negative Negative code = 96566-5) Opiate Screen (test Negative Negative code = 09722-0) Cannabinoid Screen Negative Negative (test code = 82608-1) Amph/Methamph Screen Negative Negative (test code = 01438-4) Phencyclidine Screen Negative Negative (test code = 53840-8) pH, UA (test code = 6.5 5.0-8.0 5803-2) DIONI (test code = DIONI) DRUG CUTOFF CONC.Cocaine 300 ng/mL Cannabinoid 50 ng/mLBenzodiazepine 200 ng/mLBarbiturate 200 ng/mLPhencyclidine 25 ng/mLOpiate 300 ng/mLMethadone 300 ng/mLAmphetamine/ 1000 ng/mL Methamphetamine This assay provides an unconfirmed qualitative test result for the clinical management of patients in emergency situations. Chain of custody not maintained. Some jysd-enh-hkwrhmb medications, as well as adulterants, may cause inaccurate results. Clinical correlation should be applied. A more comprehensive drug screen or confirmation of a detected drug may be performed upon request.Chocolate Dipper ID - [id number] ID - [id number] ID - [id number] ID - [id number] ID - [id number] ID - [id number] ID - [id number] ID - [id number] Lab Interpretation Normal (test code = 04722-9) [facility] CenterRapid [facility] screen, [id number] 04:13:00 Test Item Value Reference Range Interpretation Comments Barbiturate Screen Negative Negative (test code = 55936-3) Benzodiazepine Screen Negative Negative (test code = 25151-8) Cocaine (Metab.) Negative Negative Screen (test code = 3397-7) Methadone Screen (test Negative Negative code = 75055-7) Opiate Screen (test Negative Negative code = 91747-8) Cannabinoid Screen Negative Negative (test code = 99464-3) Amph/Methamph Screen Negative Negative (test code = 51935-7) Phencyclidine Screen Negative Negative (test code = 36648-2) pH, UA (test code = 6.5 5.0-8.0 5803-2) DIONI (test code = DIONI) DRUG CUTOFF CONC.Cocaine 300 ng/mL Cannabinoid 50 ng/mLBenzodiazepine 200 ng/mLBarbiturate 200 ng/mLPhencyclidine 25 ng/mLOpiate 300 ng/mLMethadone 300 ng/mLAmphetamine/ 1000 ng/mL Methamphetamine This assay provides an unconfirmed qualitative test result for the clinical management of patients in emergency situations. Chain of custody not maintained. Some ceqs-jig-ilgoofe medications, as well as adulterants, may cause inaccurate results. Clinical correlation should be applied. A more comprehensive drug screen or confirmation of a detected drug may be performed upon request.Chocolate Dipper ID - [id number] ID - [id number] ID - [id number] ID - [id number] ID - [id number] ID - [id number] ID - [id number] ID - [id number] Lab Interpretation Normal (test code = 04231-8) [facility] CenterRAPID DRUG SCREEN, [id number] 04:13:00 Test Item Value Reference Range Interpretation [...] situations. Chain of custody not maintained. Some mzss-zaj-mdknfqy medications, as well as adulterants, may cause inaccurate results. Clinical correlation should be applied. A more comprehensive drug screen or confirmation of a detected drug may be performed upon request.Chocolate Dipper ID - [id number] ID - [id number] ID - [id number] ID - [id number] ID - [id number] ID - [id number] ID - [id number] ID - [id number] and screen, [id number] 01:28:00 Test Item Value Reference Range Interpretation Comments ABO/RH AUTOMATED (BEAKER) (test O POSITIVE code = 2260) Ab Scrn (test code = 890-4) NEGATIVE [facility] CenterType and screen, [id number] 01:28:00 Test Item Value Reference Range Interpretation Comments ABO/RH AUTOMATED (BEAKER) (test O POSITIVE code = 2260) Ab Scrn (test code = 890-4) NEGATIVE [facility] CenterTROPONIN [id number] 23:38:00 Test Item Value Reference Range Interpretation [...] failure, acidosis, acute neurological disease, and persistent tachyarrhythmia.Chocolate Dipper ID - [id number] function [id number] 23:23:00 Test Item Value Reference Range Interpretation Comments Protein, Total (test 5.7 See_Comment L [Autom ated code = 2885-2) message] The system which generated this result transmit diane reference range : 6.0 - 8.5 gm/dL . The reference range was not u sed to interpret th is result as normal/abnormal . Albumin (test code = 3.0 g/dL 3.5-5 L 50822-6) Total Bilirubin (test 0.7 mg/dL 0.1-1.2 code = 1974-07) Bilirubin, Direct 0.4 mg/dL 0-0.4 (test code = 1967-12) Alkaline Phosphatase 60 U/L 30-115 (test code = 6768-6) AST (test code = 64 U/L 5-40 H 1920-8) ALT (test code = 39 U/L 5-50 1742-6) DIONI (test code = DIONI) Chocolate Dipper ID - [id number] r ID - [id number] r ID - [id number] r ID - [id number] r ID - [id number] r ID - [id number] r ID - [id number] Lab Interpretation Abnormal (test code = 04871-3) [facility] CenterHepatic function [id number] 23:23:00 Test Item Value Reference Range Interpretation Comments Protein, Total (test 5.7 See_Comment L [Autom ated code = 2885-2) message] The system which generated this result transmit diane reference range : 6.0 - 8.5 gm/dL . The reference range was not u sed to interpret th is result as normal/abnormal . Albumin (test code = 3.0 g/dL 3.5-5 L 32233-4) Total Bilirubin (test 0.7 mg/dL 0.1-1.2 code = 1974-07) Bilirubin, Direct 0.4 mg/dL 0-0.4 (test code = 1967-12) Alkaline Phosphatase 60 U/L 30-115 (test code = 6768-6) AST (test code = 64 U/L 5-40 H 1920-8) ALT (test code = 39 U/L 5-50 1742-6) DIONI (test code = DIONI) Chocolate Dipper ID - [id number] r ID - [id number] r ID - [id number] r ID - [id number] r ID - [id number] r ID - [id number] r ID - [id number] Lab Interpretation Abnormal (test code = 66198-3) [facility] CenterBASIC METABOLIC [id number] 23:23:00 Test Item Value Reference Range Interpretation [...] S NOT APPLICABLE FOR DIALYSIS PATIEN TS. Chocolate Dipper ID - [id number] ID - [id number] ID - [id number] ID - [id number] ID - [id number] ID - [id number] ID - [id number] ID - [id number] ID - [id number] ID - [id number] HEPATIC FUNCTION [id number] 23:23:00 Test Item Value Reference Range Interpretation [...] (test code = 39 U/L 5-50 347) Chocolate Dipper ID - [id number] ID - [id number] ID - [id number] ID - [id number] ID - [id number] ID - [id number] ID - [id number] [id number] 23:23:00 Test Item Value Reference Range Interpretation Comments MAGNESIUM (BEAKER) (test code = 1.7 mg/dL 1.5-3.0 627) Chocolate Dipper ID - [id number] ID - [id number] ID - [id number] ID - [id number] Yidoibwpjjaf1128-07-27 23:21:00 Test Item Value Reference Range Interpretation Comments Total Counted (test code = 1351) WBC Morphology (test code = 487) Normal Platelet Morphology (test code = 486) Normal Polychromasia (test code = 478) 1+ few Target Cells (test code = 480) 1+ few [facility] CenterManual [id number] 23:21:00 Test Item Value Reference Range Interpretation Comments Total Counted (test code = 1351) WBC Morphology (test code = 487) Normal Platelet Morphology (test code = 486) Normal Polychromasia (test code = 478) 1+ few Target Cells (test code = 480) 1+ few [facility](MANUAL DIFFERENTIAL)2020-08-29 23:21:00 Test Item Value Reference Range Interpretation Comments TOTAL COUNTED (BEAKER) (test code = 1351) WBC MORPHOLOGY (BEAKER) (test code = Normal 487) PLT MORPHOLOGY (BEAKER) (test code = Normal 486) POLYCHROMATOPHILLIC RBCS(BEAKER) (test 1+ few code = 478) TARGET CELLS (BEAKER) (test code = 1+ few 480) CBC W/PLT COUNT & AUTO [id number] 23:21:00 Test Item Value Reference Range Interpretation [...] GRANULOCYTES-RELATIVE PERCENT (BEAKER) (test code = 2801) Prothrombin time/[id number] 23:18:00 Test Item Value Reference Interpretation Comments [...] valves. Lab Interpretation Abnormal (test code = 23500-4) [facility] CenterProthrombin time/[id number] 23:18:00 Test Item Value Reference Interpretation Comments [...] valves. Lab Interpretation Abnormal (test code = 10965-6) [facility] CenterPROTHROMBIN TIME/[id number] 23:18:00 Test Item Value Reference Range Interpretation Comments PROTIME (BEAKER) 12.3 seconds 9.3-12.0 H Final Infor ria (test code = 759) (Auto Outp ut) INR (BEAKER) (test 1.11 See_Comment Final Inf ormation code = 370) (Auto Output) [Automated mess age] The system Pounce generated this result transmitted ref erence range: <=5.90. The reference range was not used to int erpret this result as normal/abnormal . RECOMMENDED COUMADIN/WARFARIN INR THERAPY RANGESSTANDARD DOSE: 2.0 - 3.0 Includes: PROPHYLAXIS for venous thrombosis, systemic embolization; TREATMENT for venous thrombosis and/or pulmonary embolus.HIGH RISK: Target INR is 2.5-3.5 for patients with mechanical heart valves.Hemoglobin [id number] 23:12:00 Test Item Value Reference Range Interpretation Comments Hemoglobin A1C (test code 5.0 % 4.3-6.1 = 4548-4) DIONI (test code = DIONI) Chocolate Dipper ID - [id number] Lab Interpretation (test Normal code = 04463-6) [facility] CenterHemoglobin [id number] 23:12:00 Test Item Value Reference Range Interpretation Comments Hemoglobin A1C (test code 5.0 % 4.3-6.1 = 4548-4) DIONI (test code = DIONI) Chocolate Dipper ID - [id number] Lab Interpretation (test Normal code = 25207-6) [facility] CenterHEMOGLOBIN [id number] 23:12:00 Test Item Value Reference Range Interpretation Comments HEMOGLOBIN A1C (BEAKER) (test code = 5.0 % 4.3-6.1 368) Chocolate Dipper ID - [id number]-OJEHGOH6119-30-85 00:00:00Ordered by an unspecified provider.[facility] CenterEKG-JQDOIAD6875-39-63 00:00:00Ordered by an unspecified provider.[facility] ([facility]OVID-19) by RT-PCR (HIGH RISK)2020-04-22 00:00:00 Test Item Value Reference Range Interpretation Comments SARS-CoV-2 INTERPRETATION Negative (test code = 57632) SOURCE (test code = 34180) Nasal_Swab_in_VTM__ UTM SARS-CoV-2 (COVID-19) by RT-PCR (HIGH RISK)2020-04-22 00:00:00 Test Item Value Reference Range Interpretation Comments SARS-CoV-2 INTERPRETATION Negative (test code = 68217) SOURCE (test code = 72238) Nasal_Swab_in_VTM__ UTM SARS-CoV-2 (COVID-19) by RT-PCR (HIGH RISK)2020-04-22 00:00:00 Test Item Value Reference Range Interpretation Comments SARS-CoV-2 INTERPRETATION Negative (test code = 04753) SOURCE (test code = 10081) Nasal_Swab_in_VTM__ UTM FUNGUS CULTURE + [id number] 17:29:00 Test Item Value Reference Range Interpretation Comments CULTURE (BEAKER) (test No fungus isolated in code = 1095) 28 days FUNGUS SMEAR (BEAKER) No fungi seen (test code = 1406) ANAEROBIC [id number] 18:10:00 Test Item Value Reference Range Interpretation Comments CULTURE (BEAKER) (test No anaerobes isolated code = 1095) SARS-COV2/RT-PCR ([facility])2020-01-03 11:25:00 Test Item Value Reference Range Interpretation Comments SARS-COV2/RT-PCR (test Negative Not Detected, Negative, code = 4333610) See external report for linked test SARS-COV-2 PERFORMING LAB [facility] (test code = 0932105) Negative result for this test determines that [...] justifying the authorization of the emergency use ofin vitro diagnostic tests for detection and/or diagnosis of COVID-19 is terminated under Section 564(b)(2) of the Act or the EUA is revoked under Section 564(g) of the Act.Fact Sheet for Healthcare Prov iders:https://www.[employer]/sites/default/files/product/documents/Fact_Sheet_HC _Gfilpuqco_Xaji_CKFE-WiY-2.pdfFact Sheet for Healthcare Patients:https://www.[employer]/sites/default/files/product/docume nts/Vmgw_Cccth_Qhsjvjln_Plir_IGXW-StV-9.pdfPerforming Laboratory:[place] [address], [place] [address]DMVJB METABOLIC PANEL 2020-01-03 05:46:00 Test Item Value [...] S NOT APPLICABLE FOR DIALYSIS PATIEN TS. Chocolate Dipper ID - [id number] 05:40:00 Test Item Value Reference Range Interpretation Comments PHOSPHORUS (BEAKER) (test code = 3.4 mg/dL 2.3-4.7 604) Chocolate Dipper ID - XOIYUUANXRHPVN3191-04-71 05:40:00 Test Item Value Reference Range Interpretation Comments MAGNESIUM (BEAKER) (test code = 1.7 mg/dL 1.6-2.6 627) Chocolate Dipper ID - EDASICBC W/PLT COUNT & AUTO [id number] 05:19:00 Test Item Value Reference Range Interpretation [...] (BEAKER) (test code = 2801) BASIC METABOLIC [id number] 05:31:00 Test Item Value Reference Range Interpretation [...] S NOT APPLICABLE FOR DIALYSIS PATIEN TS. Chocolate Dipper ID - EDASICBC W/PLT COUNT & AUTO [id number] 05:24:00 Test Item Value Reference Range Interpretation [...] 0-1 PERCENT (BEAKER) (test code = 2801) [id number] 05:03:00 Test Item Value Reference Range Interpretation Comments PHOSPHORUS (BEAKER) (test code = 3.6 mg/dL 2.3-4.7 604) Chocolate Dipper ID - UEHBRJMMAMKCOX8875-66-59 05:03:00 Test Item Value Reference Range Interpretation Comments MAGNESIUM (BEAKER) (test code = 1.6 mg/dL 1.6-2.6 627) Chocolate Dipper ID - EDASICBC W/PLT COUNT & AUTO [id number] 05:56:00 Test Item Value Reference Range Interpretation [...] H PERCENT (BEAKER) (test code = 2801) [id number] 05:09:00 Test Item Value Reference Range Interpretation Comments PHOSPHORUS (BEAKER) (test code = 3.8 mg/dL 2.3-4.7 604) Chocolate Dipper ID - BNKIDFRESTSULW5933-42-54 05:09:00 Test Item Value Reference Range Interpretation Comments MAGNESIUM (BEAKER) (test code = 1.6 mg/dL 1.6-2.6 627) Chocolate Dipper ID - EDASIBASIC METABOLIC [id number] 05:09:00 Test Item Value Reference Range Interpretation [...] S NOT APPLICABLE FOR DIALYSIS PATIEN TS. Chocolate Dipper ID - EDASIBASIC METABOLIC [id number] 06:51:00 Test Item Value Reference Range Interpretation [...] S NOT APPLICABLE FOR DIALYSIS PATIEN TS. Chocolate Dipper ID - [id number] 06:45:00 Test Item Value Reference Range Interpretation Comments MAGNESIUM (BEAKER) 1.6 mg/dL 1.6-2.6 Specimen slightly (test code = 627) hemolyzed Chocolate Dipper ID - HJIYYQLEQBXI2416-26-20 06:45:00 Test Item Value Reference Range Interpretation Comments PHOSPHORUS (BEAKER) 3.5 mg/dL 2.3-4.7 Specimen slightly (test code = 604) hemolyzed Chocolate Dipper ID - DBCBC W/PLT COUNT & AUTO [id number] 06:29:00 Test Item Value Reference Range Interpretation [...] (BEAKER) (test code = 2801) BASIC METABOLIC [id number] 05:57:00 Test Item Value Reference Range Interpretation [...] S NOT APPLICABLE FOR DIALYSIS PATIEN TS. Chocolate Dipper ID - [id number] 05:49:00 Test Item Value Reference Range Interpretation Comments PHOSPHORUS (BEAKER) (test code = 3.1 mg/dL 2.3-4.7 604) Chocolate Dipper ID - [id number] 05:49:00 Test Item Value Reference Range Interpretation Comments MAGNESIUM (BEAKER) (test code = 1.6 mg/dL 1.6-2.6 627) Chocolate Dipper ID - DBVANCOMYCIN LEVEL, [id number] 05:36:00 Test Item Value Reference Range Interpretation Comments VANCOMYCIN TROUGH (BEAKER) (test 10.9 ug/mL 10.0-20.0 code = 522) Chocolate Dipper ID - DBCBC W/PLT COUNT & AUTO [id number] 05:29:00 Test Item Value Reference Range Interpretation [...] (BEAKER) (test code = 2801) BASIC METABOLIC [id number] 06:37:00 Test Item Value Reference Range Interpretation [...] S NOT APPLICABLE FOR DIALYSIS PATIEN TS. Chocolate Dipper ID - [id number] 06:18:00 Test Item Value Reference Range Interpretation Comments MAGNESIUM (BEAKER) 1.6 mg/dL 1.6-2.6 Specimen slightly (test code = 627) hemolyzed Chocolate Dipper ID - [id number] 06:18:00 Test Item Value Reference Range Interpretation Comments PHOSPHORUS (BEAKER) 2.7 mg/dL 2.3-4.7 Specimen slightly (test code = 604) hemolyzed Chocolate Dipper ID - EDASICBC W/PLT COUNT & AUTO [id number] 05:33:00 Test Item Value Reference Range Interpretation [...] = 2801) SURGICALLY OBTAINED CULTURE + GRAM [id number] 14:41:00 Test Item Value Reference Range Interpretation Comments CULTURE (BEAKER) (test code No growth = 1095) GRAM STAIN RESULT (BEAKER) 2+ WBCs (test code = 1123) GRAM STAIN RESULT (BEAKER) No organisms seen (test code = 88652) [id number] 05:41:00 Test Item Value Reference Range Interpretation Comments PHOSPHORUS (BEAKER) (test code = 2.6 mg/dL 2.3-4.7 604) Chocolate Dipper ID - [id number] 05:41:00 Test Item Value Reference Range Interpretation Comments MAGNESIUM (BEAKER) (test code = 1.7 mg/dL 1.6-2.6 627) Chocolate Dipper ID - EDASIBASIC METABOLIC [id number] 05:41:00 Test Item Value Reference Range Interpretation [...] S NOT APPLICABLE FOR DIALYSIS PATIEN TS. Chocolate Dipper ID - EDASIHEPATIC FUNCTION [id number] 05:41:00 Test Item Value Reference Range Interpretation [...] (test code = 19 U/L 6-55 347) Chocolate Dipper ID - EDASICBC W/PLT COUNT & AUTO [id number] 05:38:00 Test Item Value Reference Range Interpretation [...] PERCENT (BEAKER) (test code = 2801) TISSUE [id number] 14:02:00Surgical Pathology Report Case: [id number] Authorizing Provider: Dougie Montoya MD Collected: 12/25/2019 08:20 AM Ordering Location: [facility] PERIOPERATIVE Received: 12/25/2019 11:14 AM SERVICES Pathologist: Lois Metz MD Specimens: A) - Stomach, Double stitch = posterior perforation. Short stitch=Distal Margin B) - Omentum A. STOMACH, DISTAL GASTRECTOMY: - GASTRIC PERFORATION WITH ACUTE AND CHRONIC INFLAMMATION AND SEROSITIS. - PROXIMAL RESECTION MARGIN VIABLE WITH SEROSITIS - DISTAL RESECTION MARGIN VIABLE, NEGATIVE FOR INFLAMMATION. - NEGATIVE FOR MALIGNANCYB. OMENTUM, RESECTION: - ADIPOSE TISSUE WITH ACUTE AND CHRONIC INFLAMMATION. Signing Pathologist Direct Phone Line: [phone] signed by Lois Metz MD on 12/27/2019 at 2:02 [id number], [id number] perforationA. Stomach; B.OmentumA. Received in formalin labeled with the patient's name, accession number and "stomach" is a 14.0 x 7.5 x 3.5 cm portion of stomach with a short suture at one end, which is designated as "distal" by the surgeon, and a double stitch designated as posterior perforation. The stomach contains up to5.0 cm of attached perigastric fat. The serosa is wallace-pink, predominantly smooth and displays a 2.5 x 2.3 cm transmural defect at the posterior wall that is 2.5 cm from the closest proximal margin, and2.5 cm from the distal margin. The specimen [...] posterior wallA9, anterior wallA10, one lymph node, [id number], one lymph nodeB. Received in formalin labeled with the patient's name, accession number and "omentum" is a 39.0 x 13.7 x 1.5 cm portion of wallace-yellow fibrofatty omentum with attached fibromembranous tissue. Sectioning reveals a tn-yellow fibrofatty cut surface, No discrete lesions are identified. Rent Collector sections are submitted in B1- B4. PA/pl [facility]formedB[facility], [facility] of Pathology, [address] [place] [address], [facility], Department of Pathology,[address] [place] [address], [facility], Departmentof Pathology, [address] [place] [address], HLQW-COV2/RT-PCR ([facility])2019-12-27 12:48:00 Test Item Value Reference Range Interpretation Comments SARS-COV2/RT-PCR (test Negative Not Detected, Negative, code = 7322897) See external report for linked test SARS-COV-2 PERFORMING LAB [facility] BO (test code = 3793428) Negative result for this test determines that [...] justifying the authorization of the emergency use ofin vitro diagnostic tests for detection and/or diagnosis of COVID-19 is terminated under Section 564(b)(2) of the Act or the EUA is revoked under Section 564(g) of the Act.Fact Sheet for Healthcare Prov iders:https://www.[employer]azz[employer].com/sites/default/files/product/documents/Fact_Sheet_HC _Tlkkewwmi_Rqyu_IVDW-HcS-8.pdfFact Sheet for Healthcare Patients:https://www.[employer].com/sites/default/files/product/docume nts/Hnam_Odwic_Aelmffkv_Dzyd_ARNW-SeM-9.pdfPerforming Laboratory:[facility], [place] [address]QXORDAERPY LEVEL, TROUGH 2019-12-27 07:01:00 Test Item Value Reference Range Interpretation Comments VANCOMYCIN TROUGH (BEAKER) (test 7.1 ug/mL 10.0-20.0 L code = 522) Chocolate Dipper ID Denia TRIPP LBASIC METABOLIC [id number] 06:28:00 Test Item Value Reference Range Interpretation [...] S NOT APPLICABLE FOR DIALYSIS PATIEN TS. Chocolate Dipper ID Denia TRIPP [id number] 06:17:00 Test Item Value Reference Range Interpretation Comments PHOSPHORUS (BEAKER) (test code = 2.2 mg/dL 2.3-4.7 L 604) Chocolate Dipper ID - JOSEE [id number] 06:17:00 Test Item Value Reference Range Interpretation Comments MAGNESIUM (BEAKER) (test code = 1.8 mg/dL 1.6-2.6 627) Chocolate Dipper ID - JOSEE LHEPATIC FUNCTION [id number] 06:17:00 Test Item Value Reference Range Interpretation [...] (test code = 14 U/L 6-55 347) Chocolate Dipper ID - JOSEE LCBC W/PLT COUNT & AUTO [id number] 06:05:00 Test Item Value Reference Range Interpretation [...] PERCENT (BEAKER) (test code = 2801) POCT-GLUCOSE [id number] 11:06:00 Test Item Value Reference Range Interpretation Comments POC-GLUCOSE METER 72 mg/dL 70-110 : TESTED A T [facility] 67[address] (BEAKER) (test code = [place], 1538) [address]: Chocolate Dipper/Techni pollo ID = [id number] for MAN DISLA BASIC METABOLIC [id number] 07:24:00 Test Item Value Reference Range Interpretation [...] 697) EGFR (BEAKER) (test 99 mL/min/1.73 ESTIMA DIANE GFR IS code = 1092) sq m NOT ACCURATE CREATININE CLEARANCE IN PREDICTING GLOMERULAR FILTRATION RATE . ESTIMATED GFR I S NOT APPLICABLE FOR DIALYSIS PATIEN TS. Chocolate Dipper ID - [id number] 07:18:00 Test Item Value Reference Range Interpretation Comments PHOSPHORUS (BEAKER) (test code = 2.4 mg/dL 2.3-4.7 604) Chocolate Dipper ID - [id number] 07:18:00 Test Item Value Reference Range Interpretation Comments MAGNESIUM (BEAKER) (test code = 1.8 mg/dL 1.6-2.6 627) Chocolate Dipper ID - BSHEPATIC FUNCTION [id number] 07:18:00 Test Item Value Reference Range Interpretation [...] (test code = 11 U/L 6-55 347) Chocolate Dipper ID - BSCBC W/PLT COUNT & AUTO [id number] 06:08:00 Test Item Value Reference Range Interpretation [...] (BEAKER) (test code = 2801) SARS-COV2/RT-PCR ([facility])2019-12-25 18:47:00 Test Item Value Reference Range Interpretation Comments SARS-COV2/RT-PCR (test code Negative Not Detected, Negative, = 2081734) See external report for linked test SARS-COV-2 PERFORMING LAB [facility] (test code = 2607766) Negative results do not preclude SARS-CoV-2 infection [...] of the Act.Fact Sheet for Healthcare Pro viders:https://www.[employer]/Documents/Xpert%20Xpress%20SARS%20CoV-2/Fact%20Sh eets/302-3802%29YNLR-ESO-5%20HEALTHCARE%20PROVIDERS%20FACT%20SHEET.pdfFact Sheet for Healthcare Patients:https://www.[employer]/Documents/Xpert%20Xpress%20SARS%20CoV-2/Fact%20Sheets/3023801%20SARS-COV -2%20PATIENT%20FACT%20SHEET.pdfPerforming Laboratory:[place] [address], [place] [address]ABGJW METABOLIC [id number] 15:48:00 Test Item Value Reference Range Interpretation [...] 697) EGFR (BEAKER) (test 99 mL/min/1.73 ESTIMA DIANE GFR IS code = 1092) sq m NOT ACCURATE CREATININE CLEARANCE IN PREDICTING GLOMERULAR FILTRATION RATE . ESTIMATED GFR I S NOT APPLICABLE FOR DIALYSIS PATIEN TS. Chocolate Dipper ID - BSBASIC METABOLIC [id number] 15:00:00 Test Item Value Reference Range Interpretation [...] 697) EGFR (BEAKER) (test 85 mL/min/1.73 ESTIMA DIANE GFR IS code = 1092) sq m NOT ACCURATE CREATININE CLEARANCE IN PREDICTING GLOMERULAR FILTRATION RATE . ESTIMATED GFR I S NOT APPLICABLE FOR DIALYSIS PATIEN TS. Chocolate Dipper ID - [id number] 15:00:00 Test Item Value Reference Range Interpretation Comments MAGNESIUM (BEAKER) (test code = 1.9 mg/dL 1.6-2.6 627) Chocolate Dipper ID - [id number] 14:59:00 Test Item Value Reference Range Interpretation Comments PHOSPHORUS (BEAKER) (test code = 4.1 mg/dL 2.3-4.7 604) Chocolate Dipper ID - [id number] 12:34:00 Test Item Value Reference Range Interpretation Comments MAGNESIUM (BEAKER) (test code = 1.9 mg/dL 1.6-2.6 627) Chocolate Dipper ID - LMBASIC METABOLIC [id number] 12:34:00 Test Item Value Reference Range Interpretation [...] 697) EGFR (BEAKER) (test 83 mL/min/1.73 ESTIMA DIANE GFR IS code = 1092) sq m NOT ACCURATE CREATININE CLEARANCE IN PREDICTING GLOMERULAR FILTRATION RATE . ESTIMATED GFR I S NOT APPLICABLE FOR DIALYSIS PATIEN TS. Chocolate Dipper ID - [id number] 12:33:00 Test Item Value Reference Range Interpretation Comments PHOSPHORUS (BEAKER) (test code = 4.8 mg/dL 2.3-4.7 H 604) Chocolate Dipper ID - LMCBC (HEMOGRAM ONLY)2019-12-25 12:27:00 Test [...] 0-0 CELLS (BEAKER) (test code = 413) [id number] 11:53:00 Test Item Value Reference Range Interpretation Comments PHOSPHORUS (BEAKER) (test code = 2.9 mg/dL 2.3-4.7 604) Chocolate Dipper ID - LMSODIUM NA-STAT [id number] 10:15:00 Test Item Value Reference Range Interpretation Comments SODIUM (BEAKER) (test code = 381) 129 meq/L 136-145 L POTASSIUM-STAT [id number] 10:15:00 Test Item Value Reference Range Interpretation Comments POTASSIUM (BEAKER) (test code = 3.2 meq/L 3.6-5.5 L 379) GLUCOSE-STAT [id number] 10:15:00 Test Item Value Reference Range Interpretation Comments GLUCOSE RANDOM (BEAKER) (test code 116 mg/dL 70-110 H = 652) HGB/HCT (H&H) - STAT [id number] 10:15:00 Test Item Value Reference Range Interpretation Comments HEMOGLOBIN (BEAKER) (test code = 8.9 g/dL 12.0-15.0 L 410) HEMATOCRIT (BEAKER) (test code = 26.0 % 36.0-45.0 L 411) CALCIUM, [id number] 10:13:00 Test Item Value Reference Range Interpretation Comments CALCIUM IONIZED (BEAKER) (test 1.06 mmol/L 1.12-1.27 L code = 698) PH, BLOOD (BEAKER) (test code = 7.28 1810) BLOOD GAS, [id number] 10:13:00 Test Item Value Reference Range Interpretation [...] (BEAKER) (test code = 1+ few 474) Chocolate Dipper ID - RickManually [id number] 04:33:00 Test Item Value Reference Range Interpretation Comments MAGNESIUM (BEAKER) (test code = 1.9 mg/dL 1.6-2.6 627) Chocolate Dipper ID - LOAN WBASIC METABOLIC [id number] 04:33:00 Test Item Value Reference Range Interpretation [...] S NOT APPLICABLE FOR DIALYSIS PATIEN TS. Chocolate Dipper ID - LOAN WCBC W/PLT COUNT & AUTO [id number] 04:22:00 Test Item Value Reference Range Interpretation [...] (BEAKER) (test code = 2801) HEPATIC FUNCTION [id number] 02:51:00 Test Item Value Reference Range Interpretation [...] (test code = 18 U/L 6-55 347) Chocolate Dipper LAKISHA CATES WSARS-COV2/RT-PCR ([facility])2019-12-25 01:01:00 Test Item Value Reference Range Interpretation Comments SARS-COV2/RT-PCR (test code Negative Not Detected, Negative, = 5996882) See external report for linked test SARS-COV-2 PERFORMING LAB [facility] (test code = 7457123) Negative results do not preclude SARS-CoV-2 infection [...] of the Act.Fact Sheet for Healthcare Pro viders:https://www.[employer]/Documents/Xpert%20Xpress%20SARS%20CoV-2/Fact%20Sh eets/302-1821%99QPZJ-FTC-0%20HEALTHCARE%20PROVIDERS%20FACT%20SHEET.pdfFact Sheet for Healthcare Patients:https://www.[employer].com/Documents/Xpert%20Xpress%20SARS%20CoV-2/Fact%20Sheets/302-5941%20SARS-COV -2%20PATIENT%20FACT%20SHEET.pdfPerforming Laboratory:[facility], [place] [id number] 00:40:00 Test Item Value Reference Range Interpretation [...] failure, acidosis, acute neurological disease, and persistent tachyarrhythmia.Chocolate Dipper ID - LOAN JAMES, CHEST, 1 VIEW, NON [id number] 00:40:00Reason for exam:->Chest painShould this be performed at the bedside?->YesFINAL REPORT INDICATION: Chest pain COMPARISON: None TECHNIQUE: Single frontal view of the chest. IMPRESSION: Lungs and pleura: Clear lungs. No effusion.Heart and mediastinum: Normal heart size. Unremarkable mediastinal contours.Osseous structures: No acute abnormality.Other: Mildly displaced fracture of the posterior right eighth rib of indeterminate chronicity. Signed: Ralf Mauricio MDReport Verified Date/Time: 12/25/2019 00:40:46 Electronically signed by: RALF MAURICIO MD on 0 12/25/2019 12:40 [id number] 00:33:00 Test Item Value Reference Range Interpretation Comments PHOSPHORUS (BEAKER) (test code = 2.8 mg/dL 2.3-4.7 604) Chocolate Dipper ID - [id number] 00:33:00 Test Item Value Reference Range Interpretation Comments MAGNESIUM (BEAKER) (test code = 1.3 mg/dL 1.6-2.6 L 627) Chocolate Dipper ID - BSBASIC METABOLIC [id number] 00:33:00 Test Item Value Reference Range Interpretation [...] 697) EGFR (BEAKER) (test 87 mL/min/1.73 ESTIMA DIANE GFR IS code = 1092) sq m NOT ACCURATE CREATININE CLEARANCE IN PREDICTING GLOMERULAR FILTRATION RATE . ESTIMATED GFR I S NOT APPLICABLE FOR DIALYSIS PATIEN TS. Chocolate Dipper ID - BSPROTHROMBIN TIME/[id number] 00:17:00 Test Item Value Reference Range Interpretation [...] is 2.5-3.5 for patients wiht mechanical heart valves.CBC W/PLT COUNT & AUTO [id number] 00:11:00 Test Item Value Reference Range Interpretation [...] WBC 0-0 (BEAKER) (test code = 413) SARS-CoV-2 (COVID-19) by RT-PCR (HIGH RISK)2019-11-15 00:00:00 Test Item Value Reference Range Interpretation Comments SARS-CoV-2 INTERPRETATION (test NEGATIVE code = 47397) SOURCE (test code = 02026) NOT SPECIFIED SARS-CoV-2 (COVID-19) by RT-PCR (HIGH RISK)2019-11-15 00:00:00 Test Item Value Reference Range Interpretation Comments SARS-CoV-2 INTERPRETATION (test NEGATIVE code = 13155) SOURCE (test code = 08479) NOT SPECIFIED SARS-CoV-2 (COVID-19) by RT-PCR (HIGH RISK)2019-11-15 00:00:00 Test Item Value Reference Range Interpretation Comments SARS-CoV-2 INTERPRETATION (test NEGATIVE code = 44533) SOURCE (test code = 42469) NOT SPECIFIED SARS-CoV-2 (COVID-19) by RT-PCR (HIGH RISK)2019-11-15 00:00:00 Test Item Value Reference Range Interpretation Comments SARS-CoV-2 INTERPRETATION (test NEGATIVE code = 64993) SOURCE (test code = 38932) NOT SPECIFIED SARS-CoV-2 (COVID-19) by RT-PCR (HIGH RISK)2019-11-15 00:00:00 Test Item Value Reference Range Interpretation Comments SARS-CoV-2 INTERPRETATION (test NEGATIVE code = 50560) SOURCE (test code = 53957) NOT SPECIFIED SARS-CoV-2 (COVID-19) by RT-PCR (HIGH RISK)2019-11-15 00:00:00 Test Item Value Reference Range Interpretation Comments SARS-CoV-2 INTERPRETATION (test NEGATIVE code = 85728) SOURCE (test code = 29019) NOT SPECIFIED CBC W/AUTO [id number] 00:00:00 Test Item Value Reference Range Interpretation Comments WBC (test code = 1001) 5.3 K/UL RBC (test code = 1002) 3.40 M/UL HEMOGLOBIN (test code = 1003) 9.7 G/DL HEMATOCRIT (test code = 1004) 30.2 % MCV (test code = 1005) 88.8 fL MCH (test code = 1006) 28.5 PG MCHC (test code = 1007) 32.1 G/DL RDW (test code = 1038) 14.2 % NEUTROPHILS (test code = 1008) 49.3 % LYMPHOCYTES (test code = 1010) 32.2 % MONOCYTES (test code = 1011) 15.6 % EOSINOPHILS (test code = 1012) 2.3 % BASOPHILS (test code = 1013) 0.6 % PLATELET COUNT (test code = 1015) 172 K/UL CBC W/AUTO [id number] 00:00:00 Test Item Value Reference Range Interpretation Comments WBC (test code = 1001) 5.3 K/UL RBC (test code = 1002) 3.40 M/UL HEMOGLOBIN (test code = 1003) 9.7 G/DL HEMATOCRIT (test code = 1004) 30.2 % MCV (test code = 1005) 88.8 fL MCH (test code = 1006) 28.5 PG MCHC (test code = 1007) 32.1 G/DL RDW (test code = 1038) 14.2 % NEUTROPHILS (test code = 1008) 49.3 % LYMPHOCYTES (test code = 1010) 32.2 % MONOCYTES (test code = 1011) 15.6 % EOSINOPHILS (test code = 1012) 2.3 % BASOPHILS (test code = 1013) 0.6 % PLATELET COUNT (test code = 1015) 172 K/UL CBC W/AUTO [id number] 00:00:00 Test Item Value Reference Range Interpretation Comments WBC (test code = 1001) 5.3 K/UL RBC (test code = 1002) 3.40 M/UL HEMOGLOBIN (test code = 1003) 9.7 G/DL HEMATOCRIT (test code = 1004) 30.2 % MCV (test code = 1005) 88.8 fL MCH (test code = 1006) 28.5 PG MCHC (test code = 1007) 32.1 G/DL RDW (test code = 1038) 14.2 % NEUTROPHILS (test code = 1008) 49.3 % LYMPHOCYTES (test code = 1010) 32.2 % MONOCYTES (test code = 1011) 15.6 % EOSINOPHILS (test code = 1012) 2.3 % BASOPHILS (test code = 1013) 0.6 % PLATELET COUNT (test code = 1015) 172 K/UL CBC W/AUTO [id number] 00:00:00 Test Item Value Reference Range Interpretation Comments WBC (test code = 1001) 5.3 K/UL RBC (test code = 1002) 3.40 M/UL HEMOGLOBIN (test code = 1003) 9.7 G/DL HEMATOCRIT (test code = 1004) 30.2 % MCV (test code = 1005) 88.8 fL MCH (test code = 1006) 28.5 PG MCHC (test code = 1007) 32.1 G/DL RDW (test code = 1038) 14.2 % NEUTROPHILS (test code = 1008) 49.3 % LYMPHOCYTES (test code = 1010) 32.2 % MONOCYTES (test code = 1011) 15.6 % EOSINOPHILS (test code = 1012) 2.3 % BASOPHILS (test code = 1013) 0.6 % PLATELET COUNT (test code = 1015) 172 K/UL CBC W/AUTO [id number] 00:00:00 Test Item Value Reference Range Interpretation Comments WBC (test code = 1001) 5.3 K/UL RBC (test code = 1002) 3.40 M/UL HEMOGLOBIN (test code = 1003) 9.7 G/DL HEMATOCRIT (test code = 1004) 30.2 % MCV (test code = 1005) 88.8 fL MCH (test code = 1006) 28.5 PG MCHC (test code = 1007) 32.1 G/DL RDW (test code = 1038) 14.2 % NEUTROPHILS (test code = 1008) 49.3 % LYMPHOCYTES (test code = 1010) 32.2 % MONOCYTES (test code = 1011) 15.6 % EOSINOPHILS (test code = 1012) 2.3 % BASOPHILS (test code = 1013) 0.6 % PLATELET COUNT (test code = 1015) 172 K/UL CBC W/AUTO [id number] 00:00:00 Test Item Value Reference Range Interpretation Comments WBC (test code = 1001) 5.3 K/UL RBC (test code = 1002) 3.40 M/UL HEMOGLOBIN (test code = 1003) 9.7 G/DL HEMATOCRIT (test code = 1004) 30.2 % MCV (test code = 1005) 88.8 fL MCH (test code = 1006) 28.5 PG MCHC (test code = 1007) 32.1 G/DL RDW (test code = 1038) 14.2 % NEUTROPHILS (test code = 1008) 49.3 % LYMPHOCYTES (test code = 1010) 32.2 % MONOCYTES (test code = 1011) 15.6 % EOSINOPHILS (test code = 1012) 2.3 % BASOPHILS (test code = 1013) 0.6 % PLATELET COUNT (test code = 1015) 172 K/UL CBC W/AUTO [id number] 00:00:00 Test Item Value Reference Range Interpretation Comments WBC (test code = 1001) 5.3 K/UL RBC (test code = 1002) 3.40 M/UL HEMOGLOBIN (test code = 1003) 9.7 G/DL HEMATOCRIT (test code = 1004) 30.2 % MCV (test code = 1005) 88.8 fL MCH (test code = 1006) 28.5 PG MCHC (test code = 1007) 32.1 G/DL RDW (test code = 1038) 14.2 % NEUTROPHILS (test code = 1008) 49.3 % LYMPHOCYTES (test code = 1010) 32.2 % MONOCYTES (test code = 1011) 15.6 % EOSINOPHILS (test code = 1012) 2.3 % BASOPHILS (test code = 1013) 0.6 % PLATELET COUNT (test code = 1015) 172 K/UL CBC W/AUTO [id number] 00:00:00 Test Item Value Reference Range Interpretation Comments WBC (test code = 1001) 5.3 K/UL RBC (test code = 1002) 3.40 M/UL HEMOGLOBIN (test code = 1003) 9.7 G/DL HEMATOCRIT (test code = 1004) 30.2 % MCV (test code = 1005) 88.8 fL MCH (test code = 1006) 28.5 PG MCHC (test code = 1007) 32.1 G/DL RDW (test code = 1038) 14.2 % NEUTROPHILS (test code = 1008) 49.3 % LYMPHOCYTES (test code = 1010) 32.2 % MONOCYTES (test code = 1011) 15.6 % EOSINOPHILS (test code = 1012) 2.3 % BASOPHILS (test code = 1013) 0.6 % PLATELET COUNT (test code = 1015) 172 K/UL CBC W/AUTO [id number] 00:00:00 Test Item Value Reference Range Interpretation Comments WBC (test code = 1001) 5.3 K/UL RBC (test code = 1002) 3.40 M/UL HEMOGLOBIN (test code = 1003) 9.7 G/DL HEMATOCRIT (test code = 1004) 30.2 % MCV (test code = 1005) 88.8 fL MCH (test code = 1006) 28.5 PG MCHC (test code = 1007) 32.1 G/DL RDW (test code = 1038) 14.2 % NEUTROPHILS (test code = 1008) 49.3 % LYMPHOCYTES (test code = 1010) 32.2 % MONOCYTES (test code = 1011) 15.6 % EOSINOPHILS (test code = 1012) 2.3 % BASOPHILS (test code = 1013) 0.6 % PLATELET COUNT (test code = 1015) 172 K/UL [id number] 00:00:00 Test Item Value Reference Range Interpretation Comments TSH, THIRD GENERATION (test code 1.630 UIU/ML = 2821) CBC W/AUTO [id number] 00:00:00 Test Item Value Reference Range Interpretation Comments WBC (test code = 1001) 7.7 K/UL RBC (test code = 1002) 3.92 M/UL HEMOGLOBIN (test code = 1003) 11.2 G/DL HEMATOCRIT (test code = 1004) 34.0 % MCV (test code = 1005) 86.7 fL MCH (test code = 1006) 28.6 PG MCHC (test code = 1007) 32.9 G/DL RDW (test code = 1038) 14.1 % NEUTROPHILS (test code = 1008) 57.3 % LYMPHOCYTES (test code = 1010) 29.9 % MONOCYTES (test code = 1011) 10.6 % EOSINOPHILS (test code = 1012) 1.7 % BASOPHILS (test code = 1013) 0.5 % PLATELET COUNT (test code = 1015) 157 K/UL CBC W/AUTO [id number] 00:00:00 Test Item Value Reference Range Interpretation Comments WBC (test code = 1001) 7.7 K/UL RBC (test code = 1002) 3.92 M/UL HEMOGLOBIN (test code = 1003) 11.2 G/DL HEMATOCRIT (test code = 1004) 34.0 % MCV (test code = 1005) 86.7 fL MCH (test code = 1006) 28.6 PG MCHC (test code = 1007) 32.9 G/DL RDW (test code = 1038) 14.1 % NEUTROPHILS (test code = 1008) 57.3 % LYMPHOCYTES (test code = 1010) 29.9 % MONOCYTES (test code = 1011) 10.6 % EOSINOPHILS (test code = 1012) 1.7 % BASOPHILS (test code = 1013) 0.5 % PLATELET COUNT (test code = 1015) 157 K/UL CBC W/AUTO [id number] 00:00:00 Test Item Value Reference Range Interpretation Comments WBC (test code = 1001) 7.7 K/UL RBC (test code = 1002) 3.92 M/UL HEMOGLOBIN (test code = 1003) 11.2 G/DL HEMATOCRIT (test code = 1004) 34.0 % MCV (test code = 1005) 86.7 fL MCH (test code = 1006) 28.6 PG MCHC (test code = 1007) 32.9 G/DL RDW (test code = 1038) 14.1 % NEUTROPHILS (test code = 1008) 57.3 % LYMPHOCYTES (test code = 1010) 29.9 % MONOCYTES (test code = 1011) 10.6 % EOSINOPHILS (test code = 1012) 1.7 % BASOPHILS (test code = 1013) 0.5 % PLATELET COUNT (test code = 1015) 157 K/UL COMPREHENSIVE METABOLIC [id number] 00:00:00 Test Item Value Reference Range Interpretation Comments GLUCOSE (test code = 2217) 94 MG/DL BUN (test code = 2208) 8 MG/DL CREATININE (test code = 2214) 0.58 MG/DL eGFR AMER. (test code 115 ML/MIN/1.73 = 79485) eGFR NON- AMER. (test 99 ML/MIN/1.73 code = 60639) CALC BUN/CREAT (test code = 14 RATIO 2235) SODIUM (test code = 2231) 142 MEQ/L POTASSIUM (test code = 2228) 5.4 MEQ/L CHLORIDE (test code = 2215) 105 MEQ/L CARBON DIOXIDE (test code = 27 MEQ/L 2205) CALCIUM (test code = 2209) 9.7 MG/DL PROTEIN, TOTAL (test code = 7.3 G/DL 2228) ALBUMIN (test code = 2201) 4.1 G/DL CALC GLOBULIN (test code = 3.2 G/DL 2240) CALC A/G RATIO (test code = 1.3 RATIO 2234) BILIRUBIN, TOTAL (test code = 0.2 MG/DL 2206) ALKALINE PHOSPHATASE (test 100 U/L code = 2204) AST (test code = 2218) 42 U/L ALT (test code = 2219) 36 U/L COMPREHENSIVE METABOLIC [id number] 00:00:00 Test Item Value Reference Range Interpretation Comments GLUCOSE (test code = 2217) 94 MG/DL BUN (test code = 2208) 8 MG/DL CREATININE (test code = 2214) 0.58 MG/DL eGFR AMER. (test code 115 ML/MIN/1.73 = 76691) eGFR NON- AMER. (test 99 ML/MIN/1.73 code = 82824) CALC BUN/CREAT (test code = 14 RATIO 2235) SODIUM (test code = 2231) 142 MEQ/L POTASSIUM (test code = 2228) 5.4 MEQ/L CHLORIDE (test code = 2215) 105 MEQ/L CARBON DIOXIDE (test code = 27 MEQ/L 220) CALCIUM (test code = 2209) 9.7 MG/DL PROTEIN, TOTAL (test code = 7.3 G/DL 2228) ALBUMIN (test code = 2201) 4.1 G/DL CALC GLOBULIN (test code = 3.2 G/DL 2239) CALC A/G RATIO (test code = 1.3 RATIO 2233) BILIRUBIN, TOTAL (test code = 0.2 MG/DL 2206) ALKALINE PHOSPHATASE (test 100 U/L code = 2204) AST (test code = 2218) 42 U/L ALT (test code = 2219) 36 U/L HEMOGLOBIN [id number] 00:00:00 Test Item Value Reference Range Interpretation Comments HEMOGLOBIN A1c (test code = 52346) 5.5 % HEMOGLOBIN [id number] 00:00:00 Test Item Value Reference Range Interpretation Comments HEMOGLOBIN A1c (test code = 60349) 5.5 % HEMOGLOBIN [id number] 00:00:00 Test Item Value Reference Range Interpretation Comments HEMOGLOBIN A1c (test code = 77561) 5.5 % [id number] 00:00:00 Test Item Value Reference Range Interpretation Comments TSH, THIRD GENERATION (test code 1.630 UIU/ML = 2821) [id number] 00:00:00 Test Item Value Reference Range Interpretation Comments TSH, THIRD GENERATION (test code 1.630 UIU/ML = 2821) [id number] 00:00:00 Test Item Value Reference Range Interpretation Comments TSH, THIRD GENERATION (test code 1.630 UIU/ML = 2821) CBC W/AUTO [id number] 00:00:00 Test Item Value Reference Range Interpretation Comments WBC (test code = 1001) 7.7 K/UL RBC (test code = 1002) 3.92 M/UL HEMOGLOBIN (test code = 1003) 11.2 G/DL HEMATOCRIT (test code = 1004) 34.0 % MCV (test code = 1005) 86.7 fL MCH (test code = 1006) 28.6 PG MCHC (test code = 1007) 32.9 G/DL RDW (test code = 1038) 14.1 % NEUTROPHILS (test code = 1008) 57.3 % LYMPHOCYTES (test code = 1010) 29.9 % MONOCYTES (test code = 1011) 10.6 % EOSINOPHILS (test code = 1012) 1.7 % BASOPHILS (test code = 1013) 0.5 % PLATELET COUNT (test code = 1015) 157 K/UL CBC W/AUTO [id number] 00:00:00 Test Item Value Reference Range Interpretation Comments WBC (test code = 1001) 7.7 K/UL RBC (test code = 1002) 3.92 M/UL HEMOGLOBIN (test code = 1003) 11.2 G/DL HEMATOCRIT (test code = 1004) 34.0 % MCV (test code = 1005) 86.7 fL MCH (test code = 1006) 28.6 PG MCHC (test code = 1007) 32.9 G/DL RDW (test code = 1038) 14.1 % NEUTROPHILS (test code = 1008) 57.3 % LYMPHOCYTES (test code = 1010) 29.9 % MONOCYTES (test code = 1011) 10.6 % EOSINOPHILS (test code = 1012) 1.7 % BASOPHILS (test code = 1013) 0.5 % PLATELET COUNT (test code = 1015) 157 K/UL CBC W/AUTO [id number] 00:00:00 Test Item Value Reference Range Interpretation Comments WBC (test code = 1001) 7.7 K/UL RBC (test code = 1002) 3.92 M/UL HEMOGLOBIN (test code = 1003) 11.2 G/DL HEMATOCRIT (test code = 1004) 34.0 % MCV (test code = 1005) 86.7 fL MCH (test code = 1006) 28.6 PG MCHC (test code = 1007) 32.9 G/DL RDW (test code = 1038) 14.1 % NEUTROPHILS (test code = 1008) 57.3 % LYMPHOCYTES (test code = 1010) 29.9 % MONOCYTES (test code = 1011) 10.6 % EOSINOPHILS (test code = 1012) 1.7 % BASOPHILS (test code = 1013) 0.5 % PLATELET COUNT (test code = 1015) 157 K/UL COMPREHENSIVE METABOLIC [id number] 00:00:00 Test Item Value Reference Range Interpretation Comments GLUCOSE (test code = 2217) 94 MG/DL BUN (test code = 2208) 8 MG/DL CREATININE (test code = 2214) 0.58 MG/DL eGFR AMER. (test code 115 ML/MIN/1.73 = 44545) eGFR NON- AMER. (test 99 ML/MIN/1.73 code = 62057) CALC BUN/CREAT (test code = 14 RATIO 2235) SODIUM (test code = 2231) 142 MEQ/L POTASSIUM (test code = 2228) 5.4 MEQ/L CHLORIDE (test code = 2215) 105 MEQ/L CARBON DIOXIDE (test code = 27 MEQ/L 2206) CALCIUM (test code = 2209) 9.7 MG/DL PROTEIN, TOTAL (test code = 7.3 G/DL 2228) ALBUMIN (test code = 2201) 4.1 G/DL CALC GLOBULIN (test code = 3.2 G/DL 2240) CALC A/G RATIO (test code = 1.3 RATIO 2234) BILIRUBIN, TOTAL (test code = 0.2 MG/DL 2206) ALKALINE PHOSPHATASE (test 100 U/L code = 2204) AST (test code = 2218) 42 U/L ALT (test code = 2219) 36 U/L COMPREHENSIVE METABOLIC [id number] 00:00:00 Test Item Value Reference Range Interpretation Comments GLUCOSE (test code = 2217) 94 MG/DL BUN (test code = 2208) 8 MG/DL CREATININE (test code = 2214) 0.58 MG/DL eGFR AMER. (test code 115 ML/MIN/1.73 = 57287) eGFR NON- AMER. (test 99 ML/MIN/1.73 code = 12605) CALC BUN/CREAT (test code = 14 RATIO 2235) SODIUM (test code = 2231) 142 MEQ/L POTASSIUM (test code = 2228) 5.4 MEQ/L CHLORIDE (test code = 2215) 105 MEQ/L CARBON DIOXIDE (test code = 27 MEQ/L 2205) CALCIUM (test code = 2209) 9.7 MG/DL PROTEIN, TOTAL (test code = 7.3 G/DL 2228) ALBUMIN (test code = 2201) 4.1 G/DL CALC GLOBULIN (test code = 3.2 G/DL 2240) CALC A/G RATIO (test code = 1.3 RATIO 2234) BILIRUBIN, TOTAL (test code = 0.2 MG/DL 2206) ALKALINE PHOSPHATASE (test 100 U/L code = 2204) AST (test code = 2218) 42 U/L ALT (test code = 2219) 36 U/L HEMOGLOBIN [id number] 00:00:00 Test Item Value Reference Range Interpretation Comments HEMOGLOBIN A1c (test code = 30550) 5.5 % HEMOGLOBIN [id number] 00:00:00 Test Item Value Reference Range Interpretation Comments HEMOGLOBIN A1c (test code = 32393) 5.5 % HEMOGLOBIN [id number] 00:00:00 Test Item Value Reference Range Interpretation Comments HEMOGLOBIN A1c (test code = 29139) 5.5 % [id number] 00:00:00 Test Item Value Reference Range Interpretation Comments TSH, THIRD GENERATION (test code 1.630 UIU/ML = 2821) [id number] 00:00:00 Test Item Value Reference Range Interpretation Comments TSH, THIRD GENERATION (test code 1.630 UIU/ML = 2821) [id number] 00:00:00 Test Item Value Reference Range Interpretation Comments TSH, THIRD GENERATION (test code 1.630 UIU/ML = 2821) CBC W/AUTO [id number] 00:00:00 Test Item Value Reference Range Interpretation Comments WBC (test code = 1001) 7.7 K/UL RBC (test code = 1002) 3.92 M/UL HEMOGLOBIN (test code = 1003) 11.2 G/DL HEMATOCRIT (test code = 1004) 34.0 % MCV (test code = 1005) 86.7 fL MCH (test code = 1006) 28.6 PG MCHC (test code = 1007) 32.9 G/DL RDW (test code = 1038) 14.1 % NEUTROPHILS (test code = 1008) 57.3 % LYMPHOCYTES (test code = 1010) 29.9 % MONOCYTES (test code = 1011) 10.6 % EOSINOPHILS (test code = 1012) 1.7 % BASOPHILS (test code = 1013) 0.5 % PLATELET COUNT (test code = 1015) 157 K/UL CBC W/AUTO [id number] 00:00:00 Test Item Value Reference Range Interpretation Comments WBC (test code = 1001) 7.7 K/UL RBC (test code = 1002) 3.92 M/UL HEMOGLOBIN (test code = 1003) 11.2 G/DL HEMATOCRIT (test code = 1004) 34.0 % MCV (test code = 1005) 86.7 fL MCH (test code = 1006) 28.6 PG MCHC (test code = 1007) 32.9 G/DL RDW (test code = 1038) 14.1 % NEUTROPHILS (test code = 1008) 57.3 % LYMPHOCYTES (test code = 1010) 29.9 % MONOCYTES (test code = 1011) 10.6 % EOSINOPHILS (test code = 1012) 1.7 % BASOPHILS (test code = 1013) 0.5 % PLATELET COUNT (test code = 1015) 157 K/UL CBC W/AUTO [id number] 00:00:00 Test Item Value Reference Range Interpretation Comments WBC (test code = 1001) 7.7 K/UL RBC (test code = 1002) 3.92 M/UL HEMOGLOBIN (test code = 1003) 11.2 G/DL HEMATOCRIT (test code = 1004) 34.0 % MCV (test code = 1005) 86.7 fL MCH (test code = 1006) 28.6 PG MCHC (test code = 1007) 32.9 G/DL RDW (test code = 1038) 14.1 % NEUTROPHILS (test code = 1008) 57.3 % LYMPHOCYTES (test code = 1010) 29.9 % MONOCYTES (test code = 1011) 10.6 % EOSINOPHILS (test code = 1012) 1.7 % BASOPHILS (test code = 1013) 0.5 % PLATELET COUNT (test code = 1015) 157 K/UL COMPREHENSIVE METABOLIC [id number] 00:00:00 Test Item Value Reference Range Interpretation Comments GLUCOSE (test code = 2217) 94 MG/DL BUN (test code = 2208) 8 MG/DL CREATININE (test code = 2214) 0.58 MG/DL eGFR AMER. (test code 115 ML/MIN/1.73 = 95724) eGFR NON- AMER. (test 99 ML/MIN/1.73 code = 54170) CALC BUN/CREAT (test code = 14 RATIO 2235) SODIUM (test code = 2231) 142 MEQ/L POTASSIUM (test code = 2228) 5.4 MEQ/L CHLORIDE (test code = 2215) 105 MEQ/L CARBON DIOXIDE (test code = 27 MEQ/L 2205) CALCIUM (test code = 2209) 9.7 MG/DL PROTEIN, TOTAL (test code = 7.3 G/DL 2228) ALBUMIN (test code = 2201) 4.1 G/DL CALC GLOBULIN (test code = 3.2 G/DL 2240) CALC A/G RATIO (test code = 1.3 RATIO 2234) BILIRUBIN, TOTAL (test code = 0.2 MG/DL 2206) ALKALINE PHOSPHATASE (test 100 U/L code = 2204) AST (test code = 2218) 42 U/L ALT (test code = 2219) 36 U/L COMPREHENSIVE METABOLIC [id number] 00:00:00 Test Item Value Reference Range Interpretation Comments GLUCOSE (test code = 2217) 94 MG/DL BUN (test code = 2208) 8 MG/DL CREATININE (test code = 2214) 0.58 MG/DL eGFR AMER. (test code 115 ML/MIN/1.73 = 78463) eGFR NON- AMER. (test 99 ML/MIN/1.73 code = 03524) CALC BUN/CREAT (test code = 14 RATIO 2235) SODIUM (test code = 2231) 142 MEQ/L POTASSIUM (test code = 2228) 5.4 MEQ/L CHLORIDE (test code = 2215) 105 MEQ/L CARBON DIOXIDE (test code = 27 MEQ/L 2206) CALCIUM (test code = 2209) 9.7 MG/DL PROTEIN, TOTAL (test code = 7.3 G/DL 2228) ALBUMIN (test code = 2201) 4.1 G/DL CALC GLOBULIN (test code = 3.2 G/DL 2240) CALC A/G RATIO (test code = 1.3 RATIO 2234) BILIRUBIN, TOTAL (test code = 0.2 MG/DL 2206) ALKALINE PHOSPHATASE (test 100 U/L code = 2204) AST (test code = 2218) 42 U/L ALT (test code = 2219) 36 U/L HEMOGLOBIN [id number] 00:00:00 Test Item Value Reference Range Interpretation Comments HEMOGLOBIN A1c (test code = 59640) 5.5 % HEMOGLOBIN [id number] 00:00:00 Test Item Value Reference Range Interpretation Comments HEMOGLOBIN A1c (test code = 81399) 5.5 % HEMOGLOBIN [id number] 00:00:00 Test Item Value Reference Range Interpretation Comments HEMOGLOBIN A1c (test code = 47079) 5.5 % [id number] 00:00:00 Test Item Value Reference Range Interpretation Comments TSH, THIRD GENERATION (test code 1.630 UIU/ML = 2821) [id number] 00:00:00 Test Item Value Reference Range Interpretation Comments TSH, THIRD GENERATION (test code 1.630 UIU/ML = 2821) CBC W/AUTO [id number] 00:00:00 Test Item Value Reference Range Interpretation Comments WBC (test code = 1001) 9.7 K/UL RBC (test code = 1002) 4.42 M/UL HEMOGLOBIN (test code = 1003) 13.3 G/DL HEMATOCRIT (test code = 1004) 39.8 % MCV (test code = 1005) 90.0 fL MCH (test code = 1006) 30.1 PG MCHC (test code = 1007) 33.4 G/DL RDW (test code = 1038) 13.6 % NEUTROPHILS (test code = 1008) 52.8 % LYMPHOCYTES (test code = 1010) 35.1 % MONOCYTES (test code = 1011) 10.5 % EOSINOPHILS (test code = 1012) 1.0 % BASOPHILS (test code = 1013) 0.6 % PLATELET COUNT (test code = 1015) 176 K/UL HEMOGLOBIN [id number] 00:00:00 Test Item Value Reference Range Interpretation Comments HEMOGLOBIN A1c (test code = 00234) 5.2 % HEMOGLOBIN [id number] 00:00:00 Test Item Value Reference Range Interpretation Comments HEMOGLOBIN A1c (test code = 20345) 5.2 % HEMOGLOBIN [id number] 00:00:00 Test Item Value Reference Range Interpretation Comments HEMOGLOBIN A1c (test code = 86390) 5.2 % VITAMIN [id number] 00:00:00 Test Item Value Reference Range Interpretation Comments VITAMIN B-12 (test code = 2840) 886 PG/ML VITAMIN [id number] 00:00:00 Test Item Value Reference Range Interpretation Comments VITAMIN B-12 (test code = 2840) 886 PG/ML VITAMIN [id number] 00:00:00 Test Item Value Reference Range Interpretation Comments VITAMIN B-12 (test code = 2840) 886 PG/ML VITAMIN D, 25 [id number] 00:00:00 Test Item Value Reference Range Interpretation Comments VITAMIN D, 25 OH (test code = 4958) 19 NG/ML VITAMIN D, 25 [id number] 00:00:00 Test Item Value Reference Range Interpretation Comments VITAMIN D, 25 OH (test code = 4958) 19 NG/ML ACUTE HEPATITIS [id number] 00:00:00 Test Item Value Reference Range Interpretation Comments HEPATITIS A IgM (test code = NON-REACTIVE 82768) HEPATITIS B CORE IgM (test code NON-REACTIVE = 4644) HEPATITIS B SURF AG (test code = NON-REACTIVE 2739) HEPATITIS C ANTIBODY (test code REACTIVE = 4675) INTERPRETATION HEPATITIS A: (NOTE) (test code = 2552) INTERPRETATION HEPATITIS B: (NOTE) (test code = 04403) INTERPRETATION HEPATITIS C: (NOTE) (test code = 39388) ACUTE HEPATITIS [id number] 00:00:00 Test Item Value Reference Range Interpretation Comments HEPATITIS A IgM (test code = NON-REACTIVE 24809) HEPATITIS B CORE IgM (test code NON-REACTIVE = 4644) HEPATITIS B SURF AG (test code = NON-REACTIVE 2739) HEPATITIS C ANTIBODY (test code REACTIVE = 4675) INTERPRETATION HEPATITIS A: (NOTE) (test code = 2552) INTERPRETATION HEPATITIS B: (NOTE) (test code = 13055) INTERPRETATION HEPATITIS C: (NOTE) (test code = 00702) COMPREHENSIVE METABOLIC [id number] 00:00:00 Test Item Value Reference Range Interpretation Comments GLUCOSE (test code = 2217) 83 MG/DL BUN (test code = 2208) 9 MG/DL CREATININE (test code = 2214) 0.68 MG/DL eGFR AMER. (test code 109 ML/MIN/1.73 = 77613) eGFR NON- AMER. (test 94 ML/MIN/1.73 code = 74937) CALC BUN/CREAT (test code = 13 RATIO 2235) SODIUM (test code = 2231) 139 MEQ/L POTASSIUM (test code = 2228) 4.5 MEQ/L CHLORIDE (test code = 2215) 98 MEQ/L CARBON DIOXIDE (test code = 24 MEQ/L 2206) CALCIUM (test code = 2209) 9.5 MG/DL PROTEIN, TOTAL (test code = 8.0 G/DL 2228) ALBUMIN (test code = 2201) 4.2 G/DL CALC GLOBULIN (test code = 3.8 G/DL 2240) CALC A/G RATIO (test code = 1.1 RATIO 2234) BILIRUBIN, TOTAL (test code = 0.5 MG/DL 220) ALKALINE PHOSPHATASE (test 98 U/L code = 2204) AST (test code = 2218) 47 U/L ALT (test code = 2219) 39 U/L COMPREHENSIVE METABOLIC [id number] 00:00:00 Test Item Value Reference Range Interpretation Comments GLUCOSE (test code = 2217) 83 MG/DL BUN (test code = 2208) 9 MG/DL CREATININE (test code = 2214) 0.68 MG/DL eGFR AMER. (test code 109 ML/MIN/1.73 = 32948) eGFR NON- AMER. (test 94 ML/MIN/1.73 code = 66957) CALC BUN/CREAT (test code = 13 RATIO 2235) SODIUM (test code = 2231) 139 MEQ/L POTASSIUM (test code = 2228) 4.5 MEQ/L CHLORIDE (test code = 2215) 98 MEQ/L CARBON DIOXIDE (test code = 24 MEQ/L 6) CALCIUM (test code = 2209) 9.5 MG/DL PROTEIN, TOTAL (test code = 8.0 G/DL 2228) ALBUMIN (test code = 2201) 4.2 G/DL CALC GLOBULIN (test code = 3.8 G/DL 2240) CALC A/G RATIO (test code = 1.1 RATIO 2234) BILIRUBIN, TOTAL (test code = 0.5 MG/DL 2206) ALKALINE PHOSPHATASE (test 98 U/L code = 2204) AST (test code = 2218) 47 U/L ALT (test code = 2219) 39 U/L LIPID [id number] 00:00:00 Test Item Value Reference Range Interpretation Comments CHOLESTEROL (test code = 2210) 152 MG/DL TRIGLYCERIDES (test code = 2232) 86 MG/DL HDL CHOLESTEROL (test code = 2220) 59 MG/DL CALC LDL CHOL (test code = 2237) 76 MG/DL RISK RATIO LDL/HDL (test code = 1.28 RATIO 2238) LIPID [id number] 00:00:00 Test Item Value Reference Range Interpretation Comments CHOLESTEROL (test code = 2210) 152 MG/DL TRIGLYCERIDES (test code = 2232) 86 MG/DL HDL CHOLESTEROL (test code = 2220) 59 MG/DL CALC LDL CHOL (test code = 2237) 76 MG/DL RISK RATIO LDL/HDL (test code = 1.28 RATIO 2238) CBC W/AUTO [id number] 00:00:00 Test Item Value Reference Range Interpretation Comments WBC (test code = 1001) 9.7 K/UL RBC (test code = 1002) 4.42 M/UL HEMOGLOBIN (test code = 1003) 13.3 G/DL HEMATOCRIT (test code = 1004) 39.8 % MCV (test code = 1005) 90.0 fL MCH (test code = 1006) 30.1 PG MCHC (test code = 1007) 33.4 G/DL RDW (test code = 1038) 13.6 % NEUTROPHILS (test code = 1008) 52.8 % LYMPHOCYTES (test code = 1010) 35.1 % MONOCYTES (test code = 1011) 10.5 % EOSINOPHILS (test code = 1012) 1.0 % BASOPHILS (test code = 1013) 0.6 % PLATELET COUNT (test code = 1015) 176 K/UL CBC W/AUTO [id number] 00:00:00 Test Item Value Reference Range Interpretation Comments WBC (test code = 1001) 9.7 K/UL RBC (test code = 1002) 4.42 M/UL HEMOGLOBIN (test code = 1003) 13.3 G/DL HEMATOCRIT (test code = 1004) 39.8 % MCV (test code = 1005) 90.0 fL MCH (test code = 1006) 30.1 PG MCHC (test code = 1007) 33.4 G/DL RDW (test code = 1038) 13.6 % NEUTROPHILS (test code = 1008) 52.8 % LYMPHOCYTES (test code = 1010) 35.1 % MONOCYTES (test code = 1011) 10.5 % EOSINOPHILS (test code = 1012) 1.0 % BASOPHILS (test code = 1013) 0.6 % PLATELET COUNT (test code = 1015) 176 K/UL CBC W/AUTO [id number] 00:00:00 Test Item Value Reference Range Interpretation Comments WBC (test code = 1001) 9.7 K/UL RBC (test code = 1002) 4.42 M/UL HEMOGLOBIN (test code = 1003) 13.3 G/DL HEMATOCRIT (test code = 1004) 39.8 % MCV (test code = 1005) 90.0 fL MCH (test code = 1006) 30.1 PG MCHC (test code = 1007) 33.4 G/DL RDW (test code = 1038) 13.6 % NEUTROPHILS (test code = 1008) 52.8 % LYMPHOCYTES (test code = 1010) 35.1 % MONOCYTES (test code = 1011) 10.5 % EOSINOPHILS (test code = 1012) 1.0 % BASOPHILS (test code = 1013) 0.6 % PLATELET COUNT (test code = 1015) 176 K/UL HEMOGLOBIN [id number] 00:00:00 Test Item Value Reference Range Interpretation Comments HEMOGLOBIN A1c (test code = 39174) 5.2 % HEMOGLOBIN [id number] 00:00:00 Test Item Value Reference Range Interpretation Comments HEMOGLOBIN A1c (test code = 30290) 5.2 % HEMOGLOBIN [id number] 00:00:00 Test Item Value Reference Range Interpretation Comments HEMOGLOBIN A1c (test code = 90129) 5.2 % VITAMIN [id number] 00:00:00 Test Item Value Reference Range Interpretation Comments VITAMIN B-12 (test code = 2840) 886 PG/ML VITAMIN [id number] 00:00:00 Test Item Value Reference Range Interpretation Comments VITAMIN B-12 (test code = 2840) 886 PG/ML VITAMIN [id number] 00:00:00 Test Item Value Reference Range Interpretation Comments VITAMIN B-12 (test code = 2840) 886 PG/ML VITAMIN D, 25 [id number] 00:00:00 Test Item Value Reference Range Interpretation Comments VITAMIN D, 25 OH (test code = 4958) 19 NG/ML VITAMIN D, 25 [id number] 00:00:00 Test Item Value Reference Range Interpretation Comments VITAMIN D, 25 OH (test code = 4958) 19 NG/ML ACUTE HEPATITIS [id number] 00:00:00 Test Item Value Reference Range Interpretation Comments HEPATITIS A IgM (test code = NON-REACTIVE 14001) HEPATITIS B CORE IgM (test code NON-REACTIVE = 2044) HEPATITIS B SURF AG (test code = NON-REACTIVE 0959) HEPATITIS C ANTIBODY (test code REACTIVE = 4675) INTERPRETATION HEPATITIS A: (NOTE) (test code = 2552) INTERPRETATION HEPATITIS B: (NOTE) (test code = 41908) INTERPRETATION HEPATITIS C: (NOTE) (test code = 53652) ACUTE HEPATITIS [id number] 00:00:00 Test Item Value Reference Range Interpretation Comments HEPATITIS A IgM (test code = NON-REACTIVE 10288) HEPATITIS B CORE IgM (test code NON-REACTIVE = 4644) HEPATITIS B SURF AG (test code = NON-REACTIVE 2739) HEPATITIS C ANTIBODY (test code REACTIVE = 4675) INTERPRETATION HEPATITIS A: (NOTE) (test code = 2552) INTERPRETATION HEPATITIS B: (NOTE) (test code = 45811) INTERPRETATION HEPATITIS C: (NOTE) (test code = 85210) COMPREHENSIVE METABOLIC [id number] 00:00:00 Test Item Value Reference Range Interpretation Comments GLUCOSE (test code = 2217) 83 MG/DL BUN (test code = 2208) 9 MG/DL CREATININE (test code = 2214) 0.68 MG/DL eGFR AMER. (test code 109 ML/MIN/1.73 = 34695) eGFR NON- AMER. (test 94 ML/MIN/1.73 code = 71978) CALC BUN/CREAT (test code = 13 RATIO 2235) SODIUM (test code = 2231) 139 MEQ/L POTASSIUM (test code = 2228) 4.5 MEQ/L CHLORIDE (test code = 2215) 98 MEQ/L CARBON DIOXIDE (test code = 24 MEQ/L 2206) CALCIUM (test code = 2209) 9.5 MG/DL PROTEIN, TOTAL (test code = 8.0 G/DL 2228) ALBUMIN (test code = 2201) 4.2 G/DL CALC GLOBULIN (test code = 3.8 G/DL 2240) CALC A/G RATIO (test code = 1.1 RATIO 2234) BILIRUBIN, TOTAL (test code = 0.5 MG/DL 2206) ALKALINE PHOSPHATASE (test 98 U/L code = 2204) AST (test code = 2218) 47 U/L ALT (test code = 2219) 39 U/L COMPREHENSIVE METABOLIC [id number] 00:00:00 Test Item Value Reference Range Interpretation Comments GLUCOSE (test code = 2217) 83 MG/DL BUN (test code = 2208) 9 MG/DL CREATININE (test code = 2214) 0.68 MG/DL eGFR AMER. (test code 109 ML/MIN/1.73 = 78420) eGFR NON- AMER. (test 94 ML/MIN/1.73 code = 88190) CALC BUN/CREAT (test code = 13 RATIO 2235) SODIUM (test code = 2231) 139 MEQ/L POTASSIUM (test code = 2228) 4.5 MEQ/L CHLORIDE (test code = 2215) 98 MEQ/L CARBON DIOXIDE (test code = 24 MEQ/L 2205) CALCIUM (test code = 2209) 9.5 MG/DL PROTEIN, TOTAL (test code = 8.0 G/DL 2228) ALBUMIN (test code = 2201) 4.2 G/DL CALC GLOBULIN (test code = 3.8 G/DL 2239) CALC A/G RATIO (test code = 1.1 RATIO 2234) BILIRUBIN, TOTAL (test code = 0.5 MG/DL 2206) ALKALINE PHOSPHATASE (test 98 U/L code = 2204) AST (test code = 2218) 47 U/L ALT (test code = 2219) 39 U/L LIPID [id number] 00:00:00 Test Item Value Reference Range Interpretation Comments CHOLESTEROL (test code = 2210) 152 MG/DL TRIGLYCERIDES (test code = 2232) 86 MG/DL HDL CHOLESTEROL (test code = 2220) 59 MG/DL CALC LDL CHOL (test code = 2237) 76 MG/DL RISK RATIO LDL/HDL (test code = 1.28 RATIO 2238) LIPID [id number] 00:00:00 Test Item Value Reference Range Interpretation Comments CHOLESTEROL (test code = 2210) 152 MG/DL TRIGLYCERIDES (test code = 2232) 86 MG/DL HDL CHOLESTEROL (test code = 2220) 59 MG/DL CALC LDL CHOL (test code = 2237) 76 MG/DL RISK RATIO LDL/HDL (test code = 1.28 RATIO 2238) CBC W/AUTO [id number] 00:00:00 Test Item Value Reference Range Interpretation Comments WBC (test code = 1001) 9.7 K/UL RBC (test code = 1002) 4.42 M/UL HEMOGLOBIN (test code = 1003) 13.3 G/DL HEMATOCRIT (test code = 1004) 39.8 % MCV (test code = 1005) 90.0 fL MCH (test code = 1006) 30.1 PG MCHC (test code = 1007) 33.4 G/DL RDW (test code = 1038) 13.6 % NEUTROPHILS (test code = 1008) 52.8 % LYMPHOCYTES (test code = 1010) 35.1 % MONOCYTES (test code = 1011) 10.5 % EOSINOPHILS (test code = 1012) 1.0 % BASOPHILS (test code = 1013) 0.6 % PLATELET COUNT (test code = 1015) 176 K/UL CBC W/AUTO [id number] 00:00:00 Test Item Value Reference Range Interpretation Comments WBC (test code = 1001) 9.7 K/UL RBC (test code = 1002) 4.42 M/UL HEMOGLOBIN (test code = 1003) 13.3 G/DL HEMATOCRIT (test code = 1004) 39.8 % MCV (test code = 1005) 90.0 fL MCH (test code = 1006) 30.1 PG MCHC (test code = 1007) 33.4 G/DL RDW (test code = 1038) 13.6 % NEUTROPHILS (test code = 1008) 52.8 % LYMPHOCYTES (test code = 1010) 35.1 % MONOCYTES (test code = 1011) 10.5 % EOSINOPHILS (test code = 1012) 1.0 % BASOPHILS (test code = 1013) 0.6 % PLATELET COUNT (test code = 1015) 176 K/UL CBC W/AUTO [id number] 00:00:00 Test Item Value Reference Range Interpretation Comments WBC (test code = 1001) 9.7 K/UL RBC (test code = 1002) 4.42 M/UL HEMOGLOBIN (test code = 1003) 13.3 G/DL HEMATOCRIT (test code = 1004) 39.8 % MCV (test code = 1005) 90.0 fL MCH (test code = 1006) 30.1 PG MCHC (test code = 1007) 33.4 G/DL RDW (test code = 1038) 13.6 % NEUTROPHILS (test code = 1008) 52.8 % LYMPHOCYTES (test code = 1010) 35.1 % MONOCYTES (test code = 1011) 10.5 % EOSINOPHILS (test code = 1012) 1.0 % BASOPHILS (test code = 1013) 0.6 % PLATELET COUNT (test code = 1015) 176 K/UL HEMOGLOBIN [id number] 00:00:00 Test Item Value Reference Range Interpretation Comments HEMOGLOBIN A1c (test code = 56262) 5.2 % HEMOGLOBIN [id number] 00:00:00 Test Item Value Reference Range Interpretation Comments HEMOGLOBIN A1c (test code = 73539) 5.2 % HEMOGLOBIN [id number] 00:00:00 Test Item Value Reference Range Interpretation Comments HEMOGLOBIN A1c (test code = 12512) 5.2 % VITAMIN [id number] 00:00:00 Test Item Value Reference Range Interpretation Comments VITAMIN B-12 (test code = 2840) 886 PG/ML VITAMIN [id number] 00:00:00 Test Item Value Reference Range Interpretation Comments VITAMIN B-12 (test code = 2840) 886 PG/ML VITAMIN [id number] 00:00:00 Test Item Value Reference Range Interpretation Comments VITAMIN B-12 (test code = 2840) 886 PG/ML VITAMIN D, 25 [id number] 00:00:00 Test Item Value Reference Range Interpretation Comments VITAMIN D, 25 OH (test code = 4958) 19 NG/ML VITAMIN D, 25 [id number] 00:00:00 Test Item Value Reference Range Interpretation Comments VITAMIN D, 25 OH (test code = 4958) 19 NG/ML ACUTE HEPATITIS [id number] 00:00:00 Test Item Value Reference Range Interpretation Comments HEPATITIS A IgM (test code = NON-REACTIVE 47211) HEPATITIS B CORE IgM (test code NON-REACTIVE = 4644) HEPATITIS B SURF AG (test code = NON-REACTIVE 2739) HEPATITIS C ANTIBODY (test code REACTIVE = 4675) INTERPRETATION HEPATITIS A: (NOTE) (test code = 2552) INTERPRETATION HEPATITIS B: (NOTE) (test code = 88569) INTERPRETATION HEPATITIS C: (NOTE) (test code = 51985) ACUTE HEPATITIS [id number] 00:00:00 Test Item Value Reference Range Interpretation Comments HEPATITIS A IgM (test code = NON-REACTIVE 51270) HEPATITIS B CORE IgM (test code NON-REACTIVE = 4644) HEPATITIS B SURF AG (test code = NON-REACTIVE 2739) HEPATITIS C ANTIBODY (test code REACTIVE = 4675) INTERPRETATION HEPATITIS A: (NOTE) (test code = 2552) INTERPRETATION HEPATITIS B: (NOTE) (test code = 79561) INTERPRETATION HEPATITIS C: (NOTE) (test code = 99941) COMPREHENSIVE METABOLIC [id number] 00:00:00 Test Item Value Reference Range Interpretation Comments GLUCOSE (test code = 2217) 83 MG/DL BUN (test code = 2208) 9 MG/DL CREATININE (test code = 2214) 0.68 MG/DL eGFR AMER. (test code 109 ML/MIN/1.73 = 48978) eGFR NON- AMER. (test 94 ML/MIN/1.73 code = 76565) CALC BUN/CREAT (test code = 13 RATIO 2235) SODIUM (test code = 2231) 139 MEQ/L POTASSIUM (test code = 2228) 4.5 MEQ/L CHLORIDE (test code = 2215) 98 MEQ/L CARBON DIOXIDE (test code = 24 MEQ/L 220) CALCIUM (test code = 2209) 9.5 MG/DL PROTEIN, TOTAL (test code = 8.0 G/DL 2228) ALBUMIN (test code = 2201) 4.2 G/DL CALC GLOBULIN (test code = 3.8 G/DL 0) CALC A/G RATIO (test code = 1.1 RATIO 4) BILIRUBIN, TOTAL (test code = 0.5 MG/DL 2206) ALKALINE PHOSPHATASE (test 98 U/L code = 2204) AST (test code = 2218) 47 U/L ALT (test code = 2219) 39 U/L COMPREHENSIVE METABOLIC [id number] 00:00:00 Test Item Value Reference Range Interpretation Comments GLUCOSE (test code = 2217) 83 MG/DL BUN (test code = 2208) 9 MG/DL CREATININE (test code = 2214) 0.68 MG/DL eGFR AMER. (test code 109 ML/MIN/1.73 = 81814) eGFR NON- AMER. (test 94 ML/MIN/1.73 code = 32751) CALC BUN/CREAT (test code = 13 RATIO 2235) SODIUM (test code = 2231) 139 MEQ/L POTASSIUM (test code = 2228) 4.5 MEQ/L CHLORIDE (test code = 2215) 98 MEQ/L CARBON DIOXIDE (test code = 24 MEQ/L 2206) CALCIUM (test code = 2209) 9.5 MG/DL PROTEIN, TOTAL (test code = 8.0 G/DL 2228) ALBUMIN (test code = 2201) 4.2 G/DL CALC GLOBULIN (test code = 3.8 G/DL 2239) CALC A/G RATIO (test code = 1.1 RATIO 2234) BILIRUBIN, TOTAL (test code = 0.5 MG/DL 2206) ALKALINE PHOSPHATASE (test 98 U/L code = 2204) AST (test code = 2218) 47 U/L ALT (test code = 2219) 39 U/L LIPID [id number] 00:00:00 Test Item Value Reference Range Interpretation Comments CHOLESTEROL (test code = 2210) 152 MG/DL TRIGLYCERIDES (test code = 2232) 86 MG/DL HDL CHOLESTEROL (test code = 2220) 59 MG/DL CALC LDL CHOL (test code = 2237) 76 MG/DL RISK RATIO LDL/HDL (test code = 1.28 RATIO 2238) LIPID [id number] 00:00:00 Test Item Value Reference Range Interpretation Comments CHOLESTEROL (test code = 2210) 152 MG/DL TRIGLYCERIDES (test code = 2232) 86 MG/DL HDL CHOLESTEROL (test code = 2220) 59 MG/DL CALC LDL CHOL (test code = 2237) 76 MG/DL RISK RATIO LDL/HDL (test code = 1.28 RATIO 2238) CBC W/AUTO [id number] 00:00:00 Test Item Value Reference Range Interpretation Comments WBC (test code = 1001) 9.7 K/UL RBC (test code = 1002) 4.42 M/UL HEMOGLOBIN (test code = 1003) 13.3 G/DL HEMATOCRIT (test code = 1004) 39.8 % MCV (test code = 1005) 90.0 fL MCH (test code = 1006) 30.1 PG MCHC (test code = 1007) 33.4 G/DL RDW (test code = 1038) 13.6 % NEUTROPHILS (test code = 1008) 52.8 % LYMPHOCYTES (test code = 1010) 35.1 % MONOCYTES (test code = 1011) 10.5 % EOSINOPHILS (test code = 1012) 1.0 % BASOPHILS (test code = 1013) 0.6 % PLATELET COUNT (test code = 1015) 176 K/UL CBC W/AUTO [id number] 00:00:00 Test Item Value Reference Range Interpretation Comments WBC (test code = 1001) 9.7 K/UL RBC (test code = 1002) 4.42 M/UL HEMOGLOBIN (test code = 1003) 13.3 G/DL HEMATOCRIT (test code = 1004) 39.8 % MCV (test code = 1005) 90.0 fL MCH (test code = 1006) 30.1 PG MCHC (test code = 1007) 33.4 G/DL RDW (test code = 1038) 13.6 % NEUTROPHILS (test code = 1008) 52.8 % LYMPHOCYTES (test code = 1010) 35.1 % MONOCYTES (test code = 1011) 10.5 % EOSINOPHILS (test code = 1012) 1.0 % BASOPHILS (test code = 1013) 0.6 % PLATELET COUNT (test code = 1015) 176 K/UL CBC W/AUTO [id number] 00:00:00 Test Item Value Reference Range Interpretation Comments WBC (test code = 1001) 9.2 K/UL RBC (test code = 1002) 4.07 M/UL HEMOGLOBIN (test code = 1003) 12.2 G/DL HEMATOCRIT (test code = 1004) 36.5 % MCV (test code = 1005) 89.7 fL MCH (test code = 1006) 30.0 PG MCHC (test code = 1007) 33.4 G/DL RDW (test code = 1038) 14.4 % NEUTROPHILS (test code = 1008) 54.7 % LYMPHOCYTES (test code = 1010) 31.9 % MONOCYTES (test code = 1011) 12.0 % EOSINOPHILS (test code = 1012) 0.7 % BASOPHILS (test code = 1013) 0.7 % PLATELET COUNT (test code = 1015) 184 K/UL CBC W/AUTO [id number] 00:00:00 Test Item Value Reference Range Interpretation Comments WBC (test code = 1001) 9.2 K/UL RBC (test code = 1002) 4.07 M/UL HEMOGLOBIN (test code = 1003) 12.2 G/DL HEMATOCRIT (test code = 1004) 36.5 % MCV (test code = 1005) 89.7 fL MCH (test code = 1006) 30.0 PG MCHC (test code = 1007) 33.4 G/DL RDW (test code = 1038) 14.4 % NEUTROPHILS (test code = 1008) 54.7 % LYMPHOCYTES (test code = 1010) 31.9 % MONOCYTES (test code = 1011) 12.0 % EOSINOPHILS (test code = 1012) 0.7 % BASOPHILS (test code = 1013) 0.7 % PLATELET COUNT (test code = 1015) 184 K/UL CBC W/AUTO [id number] 00:00:00 Test Item Value Reference Range Interpretation Comments WBC (test code = 1001) 9.2 K/UL RBC (test code = 1002) 4.07 M/UL HEMOGLOBIN (test code = 1003) 12.2 G/DL HEMATOCRIT (test code = 1004) 36.5 % MCV (test code = 1005) 89.7 fL MCH (test code = 1006) 30.0 PG MCHC (test code = 1007) 33.4 G/DL RDW (test code = 1038) 14.4 % NEUTROPHILS (test code = 1008) 54.7 % LYMPHOCYTES (test code = 1010) 31.9 % MONOCYTES (test code = 1011) 12.0 % EOSINOPHILS (test code = 1012) 0.7 % BASOPHILS (test code = 1013) 0.7 % PLATELET COUNT (test code = 1015) 184 K/UL COMPREHENSIVE METABOLIC [id number] 00:00:00 Test Item Value Reference Range Interpretation Comments GLUCOSE (test code = 2217) 97 MG/DL BUN (test code = 2208) 9 MG/DL CREATININE (test code = 2214) 0.51 MG/DL eGFR AMER. (test code 120 ML/MIN/1.73 = 91271) eGFR NON- AMER. (test 104 ML/MIN/1.73 code = 15227) CALC BUN/CREAT (test code = 18 RATIO 2235) SODIUM (test code = 2231) 139 MEQ/L POTASSIUM (test code = 2228) 4.0 MEQ/L CHLORIDE (test code = 2215) 101 MEQ/L CARBON DIOXIDE (test code = 20 MEQ/L 2205) CALCIUM (test code = 2209) 10.3 MG/DL PROTEIN, TOTAL (test code = 8.3 G/DL 2229) ALBUMIN (test code = 2201) 4.0 G/DL CALC GLOBULIN (test code = 4.3 G/DL 2240) CALC A/G RATIO (test code = 0.9 RATIO 2234) BILIRUBIN, TOTAL (test code = 0.4 MG/DL 2206) ALKALINE PHOSPHATASE (test 89 U/L code = 2204) AST (test code = 2218) 49 U/L ALT (test code = 2219) 47 U/L COMPREHENSIVE METABOLIC [id number] 00:00:00 Test Item Value Reference Range Interpretation Comments GLUCOSE (test code = 2217) 97 MG/DL BUN (test code = 2208) 9 MG/DL CREATININE (test code = 2214) 0.51 MG/DL eGFR AMER. (test code 120 ML/MIN/1.73 = 31687) eGFR NON- AMER. (test 104 ML/MIN/1.73 code = 58129) CALC BUN/CREAT (test code = 18 RATIO 2235) SODIUM (test code = 2231) 139 MEQ/L POTASSIUM (test code = 2228) 4.0 MEQ/L CHLORIDE (test code = 2215) 101 MEQ/L CARBON DIOXIDE (test code = 20 MEQ/L 2205) CALCIUM (test code = 2209) 10.3 MG/DL PROTEIN, TOTAL (test code = 8.3 G/DL 2228) ALBUMIN (test code = 2201) 4.0 G/DL CALC GLOBULIN (test code = 4.3 G/DL 2240) CALC A/G RATIO (test code = 0.9 RATIO 2234) BILIRUBIN, TOTAL (test code = 0.4 MG/DL 2206) ALKALINE PHOSPHATASE (test 89 U/L code = 2204) AST (test code = 2218) 49 U/L ALT (test code = 2219) 47 U/L VITAMIN D,1,16-[id number] 00:00:00 Test Item Value Reference Range Interpretation Comments VITAMIN D,1,25-DIHYDROXY (test 42.2 PG/ML code = 4960) VITAMIN D,1,04-[id number] 00:00:00 Test Item Value Reference Range Interpretation Comments VITAMIN D,1,25-DIHYDROXY (test 42.2 PG/ML code = 4960) CBC W/AUTO [id number] 00:00:00 Test Item Value Reference Range Interpretation Comments WBC (test code = 1001) 9.2 K/UL RBC (test code = 1002) 4.07 M/UL HEMOGLOBIN (test code = 1003) 12.2 G/DL HEMATOCRIT (test code = 1004) 36.5 % MCV (test code = 1005) 89.7 fL MCH (test code = 1006) 30.0 PG MCHC (test code = 1007) 33.4 G/DL RDW (test code = 1038) 14.4 % NEUTROPHILS (test code = 1008) 54.7 % LYMPHOCYTES (test code = 1010) 31.9 % MONOCYTES (test code = 1011) 12.0 % EOSINOPHILS (test code = 1012) 0.7 % BASOPHILS (test code = 1013) 0.7 % PLATELET COUNT (test code = 1015) 184 K/UL CBC W/AUTO [id number] 00:00:00 Test Item Value Reference Range Interpretation Comments WBC (test code = 1001) 9.2 K/UL RBC (test code = 1002) 4.07 M/UL HEMOGLOBIN (test code = 1003) 12.2 G/DL HEMATOCRIT (test code = 1004) 36.5 % MCV (test code = 1005) 89.7 fL MCH (test code = 1006) 30.0 PG MCHC (test code = 1007) 33.4 G/DL RDW (test code = 1038) 14.4 % NEUTROPHILS (test code = 1008) 54.7 % LYMPHOCYTES (test code = 1010) 31.9 % MONOCYTES (test code = 1011) 12.0 % EOSINOPHILS (test code = 1012) 0.7 % BASOPHILS (test code = 1013) 0.7 % PLATELET COUNT (test code = 1015) 184 K/UL CBC W/AUTO [id number] 00:00:00 Test Item Value Reference Range Interpretation Comments WBC (test code = 1001) 9.2 K/UL RBC (test code = 1002) 4.07 M/UL HEMOGLOBIN (test code = 1003) 12.2 G/DL HEMATOCRIT (test code = 1004) 36.5 % MCV (test code = 1005) 89.7 fL MCH (test code = 1006) 30.0 PG MCHC (test code = 1007) 33.4 G/DL RDW (test code = 1038) 14.4 % NEUTROPHILS (test code = 1008) 54.7 % LYMPHOCYTES (test code = 1010) 31.9 % MONOCYTES (test code = 1011) 12.0 % EOSINOPHILS (test code = 1012) 0.7 % BASOPHILS (test code = 1013) 0.7 % PLATELET COUNT (test code = 1015) 184 K/UL COMPREHENSIVE METABOLIC [id number] 00:00:00 Test Item Value Reference Range Interpretation Comments GLUCOSE (test code = 2217) 97 MG/DL BUN (test code = 2208) 9 MG/DL CREATININE (test code = 2214) 0.51 MG/DL eGFR AMER. (test code 120 ML/MIN/1.73 = 18855) eGFR NON- AMER. (test 104 ML/MIN/1.73 code = 67556) CALC BUN/CREAT (test code = 18 RATIO 2235) SODIUM (test code = 2231) 139 MEQ/L POTASSIUM (test code = 2228) 4.0 MEQ/L CHLORIDE (test code = 2215) 101 MEQ/L CARBON DIOXIDE (test code = 20 MEQ/L 2206) CALCIUM (test code = 2209) 10.3 MG/DL PROTEIN, TOTAL (test code = 8.3 G/DL 2229) ALBUMIN (test code = 2201) 4.0 G/DL CALC GLOBULIN (test code = 4.3 G/DL 2240) CALC A/G RATIO (test code = 0.9 RATIO 2234) BILIRUBIN, TOTAL (test code = 0.4 MG/DL 2207) ALKALINE PHOSPHATASE (test 89 U/L code = 2204) AST (test code = 2218) 49 U/L ALT (test code = 2219) 47 U/L COMPREHENSIVE METABOLIC [id number] 00:00:00 Test Item Value Reference Range Interpretation Comments GLUCOSE (test code = 2217) 97 MG/DL BUN (test code = 2208) 9 MG/DL CREATININE (test code = 2214) 0.51 MG/DL eGFR AMER. (test code 120 ML/MIN/1.73 = 02879) eGFR NON- AMER. (test 104 ML/MIN/1.73 code = 65800) CALC BUN/CREAT (test code = 18 RATIO 2235) SODIUM (test code = 2231) 139 MEQ/L POTASSIUM (test code = 2228) 4.0 MEQ/L CHLORIDE (test code = 2215) 101 MEQ/L CARBON DIOXIDE (test code = 20 MEQ/L 2205) CALCIUM (test code = 2209) 10.3 MG/DL PROTEIN, TOTAL (test code = 8.3 G/DL 2228) ALBUMIN (test code = 2201) 4.0 G/DL CALC GLOBULIN (test code = 4.3 G/DL 2239) CALC A/G RATIO (test code = 0.9 RATIO 2233) BILIRUBIN, TOTAL (test code = 0.4 MG/DL 2206) ALKALINE PHOSPHATASE (test 89 U/L code = 2204) AST (test code = 2218) 49 U/L ALT (test code = 2219) 47 U/L VITAMIN D,1,15-[id number] 00:00:00 Test Item Value Reference Range Interpretation Comments VITAMIN D,1,25-DIHYDROXY (test 42.2 PG/ML code = 4960) VITAMIN D,1,06-[id number] 00:00:00 Test Item Value Reference Range Interpretation Comments VITAMIN D,1,25-DIHYDROXY (test 42.2 PG/ML code = 4960) CBC W/AUTO [id number] 00:00:00 Test Item Value Reference Range Interpretation Comments WBC (test code = 1001) 9.2 K/UL RBC (test code = 1002) 4.07 M/UL HEMOGLOBIN (test code = 1003) 12.2 G/DL HEMATOCRIT (test code = 1004) 36.5 % MCV (test code = 1005) 89.7 fL MCH (test code = 1006) 30.0 PG MCHC (test code = 1007) 33.4 G/DL RDW (test code = 1038) 14.4 % NEUTROPHILS (test code = 1008) 54.7 % LYMPHOCYTES (test code = 1010) 31.9 % MONOCYTES (test code = 1011) 12.0 % EOSINOPHILS (test code = 1012) 0.7 % BASOPHILS (test code = 1013) 0.7 % PLATELET COUNT (test code = 1015) 184 K/UL CBC W/AUTO [id number] 00:00:00 Test Item Value Reference Range Interpretation Comments WBC (test code = 1001) 9.2 K/UL RBC (test code = 1002) 4.07 M/UL HEMOGLOBIN (test code = 1003) 12.2 G/DL HEMATOCRIT (test code = 1004) 36.5 % MCV (test code = 1005) 89.7 fL MCH (test code = 1006) 30.0 PG MCHC (test code = 1007) 33.4 G/DL RDW (test code = 1038) 14.4 % NEUTROPHILS (test code = 1008) 54.7 % LYMPHOCYTES (test code = 1010) 31.9 % MONOCYTES (test code = 1011) 12.0 % EOSINOPHILS (test code = 1012) 0.7 % BASOPHILS (test code = 1013) 0.7 % PLATELET COUNT (test code = 1015) 184 K/UL CBC W/AUTO [id number] 00:00:00 Test Item Value Reference Range Interpretation Comments WBC (test code = 1001) 9.2 K/UL RBC (test code = 1002) 4.07 M/UL HEMOGLOBIN (test code = 1003) 12.2 G/DL HEMATOCRIT (test code = 1004) 36.5 % MCV (test code = 1005) 89.7 fL MCH (test code = 1006) 30.0 PG MCHC (test code = 1007) 33.4 G/DL RDW (test code = 1038) 14.4 % NEUTROPHILS (test code = 1008) 54.7 % LYMPHOCYTES (test code = 1010) 31.9 % MONOCYTES (test code = 1011) 12.0 % EOSINOPHILS (test code = 1012) 0.7 % BASOPHILS (test code = 1013) 0.7 % PLATELET COUNT (test code = 1015) 184 K/UL COMPREHENSIVE METABOLIC [id number] 00:00:00 Test Item Value Reference Range Interpretation Comments GLUCOSE (test code = 2217) 97 MG/DL BUN (test code = 2208) 9 MG/DL CREATININE (test code = 2214) 0.51 MG/DL eGFR AMER. (test code 120 ML/MIN/1.73 = 82986) eGFR NON- AMER. (test 104 ML/MIN/1.73 code = 84958) CALC BUN/CREAT (test code = 18 RATIO 2235) SODIUM (test code = 2231) 139 MEQ/L POTASSIUM (test code = 2228) 4.0 MEQ/L CHLORIDE (test code = 2215) 101 MEQ/L CARBON DIOXIDE (test code = 20 MEQ/L 220) CALCIUM (test code = 2209) 10.3 MG/DL PROTEIN, TOTAL (test code = 8.3 G/DL 222) ALBUMIN (test code = 2201) 4.0 G/DL CALC GLOBULIN (test code = 4.3 G/DL 2240) CALC A/G RATIO (test code = 0.9 RATIO 2234) BILIRUBIN, TOTAL (test code = 0.4 MG/DL 220) ALKALINE PHOSPHATASE (test 89 U/L code = 2204) AST (test code = 2218) 49 U/L ALT (test code = 2219) 47 U/L COMPREHENSIVE METABOLIC [id number] 00:00:00 Test Item Value Reference Range Interpretation Comments GLUCOSE (test code = 2217) 97 MG/DL BUN (test code = 2208) 9 MG/DL CREATININE (test code = 2214) 0.51 MG/DL eGFR AMER. (test code 120 ML/MIN/1.73 = 59233) eGFR NON- AMER. (test 104 ML/MIN/1.73 code = 46435) CALC BUN/CREAT (test code = 18 RATIO 2235) SODIUM (test code = 2231) 139 MEQ/L POTASSIUM (test code = 2228) 4.0 MEQ/L CHLORIDE (test code = 2215) 101 MEQ/L CARBON DIOXIDE (test code = 20 MEQ/L 2205) CALCIUM (test code = 2209) 10.3 MG/DL PROTEIN, TOTAL (test code = 8.3 G/DL 2228) ALBUMIN (test code = 2201) 4.0 G/DL CALC GLOBULIN (test code = 4.3 G/DL 2240) CALC A/G RATIO (test code = 0.9 RATIO 2234) BILIRUBIN, TOTAL (test code = 0.4 MG/DL 220) ALKALINE PHOSPHATASE (test 89 U/L code = 2204) AST (test code = 2218) 49 U/L ALT (test code = 2219) 47 U/L VITAMIN D,1,36-[id number] 00:00:00 Test Item Value Reference Range Interpretation Comments VITAMIN D,1,25-DIHYDROXY (test 42.2 PG/ML code = 4960) VITAMIN D,1,33-[id number] 00:00:00 Test Item Value Reference Range Interpretation Comments VITAMIN D,1,25-DIHYDROXY (test 42.2 PG/ML code = 4960) PAP TEST, THINPREP, [id number] 00:00:00 Test Item Value Reference Range Interpretation Comments SOURCE: (test code = Cervical/Endocervical 8001) SLIDES: (test code = 1 8011) LMP: (test code = 8021) SPECIMEN ADEQUACY: (test (NOTE) code = 54114) INTERPRETATION: (test NO EPITHELIAL code = 21526) ABNORMALITY SEE BELOW OTHER COMMENTS: (test (NOTE) code = 8081) INSPECTOR SHEET METAL PARTS: (test FLAVIA code = 8101) MARGO LANIER(ASCP) PATHOLOGIST Michelle Ferrari, INTERPRETATION BY: (test M.D. code = 8122) LOCATION: (test code = (NOTE) 31543) CPT: (test code = 8140) (NOTE) PAP TEST, THINPREP, [id number] 00:00:00 Test Item Value Reference Range Interpretation Comments SOURCE: (test code = Cervical/Endocervical 8001) SLIDES: (test code = 1 8011) LMP: (test code = 8021) SPECIMEN ADEQUACY: (test (NOTE) code = 14075) INTERPRETATION: (test NO EPITHELIAL code = 99584) ABNORMALITY SEE BELOW OTHER COMMENTS: (test (NOTE) code = 8081) INSPECTOR SHEET METAL PARTS: (test FLAVIA code = 8101) MARGO LANIER(ASCP) PATHOLOGIST Michelle Ferrari, INTERPRETATION BY: (test M.D. code = 8122) LOCATION: (test code = (NOTE) 40461) CPT: (test code = 8140) (NOTE) HPV HIGH RISK WITH GENOTYPE, [id number] 00:00:00 Test Item Value Reference Range Interpretation Comments HPV HIGH RISK INTERP (test code = NEGATIVE 66724) HPV 16 (test code = 41354) NEGATIVE HPV 18 (test code = 67530) NEGATIVE HPV, HR, OTHER GENOTYPES (test code NEGATIVE = 75335) HPV HIGH RISK WITH GENOTYPE, [id number] 00:00:00 Test Item Value Reference Range Interpretation Comments HPV HIGH RISK INTERP (test code = NEGATIVE 81586) HPV 16 (test code = 51913) NEGATIVE HPV 18 (test code = 09246) NEGATIVE HPV, HR, OTHER GENOTYPES (test code NEGATIVE = 67593) PAP TEST, THINPREP, [id number] 00:00:00 Test Item Value Reference Range Interpretation Comments SOURCE: (test code = Cervical/Endocervical 8001) SLIDES: (test code = 1 8011) LMP: (test code = 8021) SPECIMEN ADEQUACY: (test (NOTE) code = 44309) INTERPRETATION: (test NO EPITHELIAL code = 74100) ABNORMALITY SEE BELOW OTHER COMMENTS: (test (NOTE) code = 8081) INSPECTOR SHEET METAL PARTS: (test FLAVIA code = 8101) MARGO LANIER(ASCP) PATHOLOGIST Michelle Ferrari, INTERPRETATION BY: (test M.D. code = 8122) LOCATION: (test code = (NOTE) 72688) CPT: (test code = 8140) (NOTE) PAP TEST, THINPREP, [id number] 00:00:00 Test Item Value Reference Range Interpretation Comments SOURCE: (test code = Cervical/Endocervical 8001) SLIDES: (test code = 1 8011) LMP: (test code = 8021) SPECIMEN ADEQUACY: (test (NOTE) code = 70266) INTERPRETATION: (test NO EPITHELIAL code = 05154) ABNORMALITY SEE BELOW OTHER COMMENTS: (test (NOTE) code = 8081) INSPECTOR SHEET METAL PARTS: (test FLAVIA code = 8101) MARGO LANIER(ASCP) PATHOLOGIST Michelle Ferrari, INTERPRETATION BY: (test M.D. code = 8122) LOCATION: (test code = (NOTE) 31789) CPT: (test code = 8140) (NOTE) HPV HIGH RISK WITH GENOTYPE, [id number] 00:00:00 Test Item Value Reference Range Interpretation Comments HPV HIGH RISK INTERP (test code = NEGATIVE 97295) HPV 16 (test code = 69785) NEGATIVE HPV 18 (test code = 31929) NEGATIVE HPV, HR, OTHER GENOTYPES (test code NEGATIVE = 84194) HPV HIGH RISK WITH GENOTYPE, [id number] 00:00:00 Test Item Value Reference Range Interpretation Comments HPV HIGH RISK INTERP (test code = NEGATIVE 03961) HPV 16 (test code = 00991) NEGATIVE HPV 18 (test code = 60692) NEGATIVE HPV, HR, OTHER GENOTYPES (test code NEGATIVE = 87052) PAP TEST, THINPREP, [id number] 00:00:00 Test Item Value Reference Range Interpretation Comments SOURCE: (test code = Cervical/Endocervical 8001) SLIDES: (test code = 1 8011) LMP: (test code = 8021) SPECIMEN ADEQUACY: (test (NOTE) code = 45625) INTERPRETATION: (test NO EPITHELIAL code = 94756) ABNORMALITY SEE BELOW OTHER COMMENTS: (test (NOTE) code = 8081) INSPECTOR SHEET METAL PARTS: (test FLAVIA code = 8101) MARGO LANIER(ASCP) PATHOLOGIST Michelle Ferrari, INTERPRETATION BY: (test M.D. code = 8122) LOCATION: (test code = (NOTE) 43733) CPT: (test code = 8140) (NOTE) PAP TEST, THINPREP, [id number] 00:00:00 Test Item Value Reference Range Interpretation Comments SOURCE: (test code = Cervical/Endocervical 8001) SLIDES: (test code = 1 8011) LMP: (test code = 8021) SPECIMEN ADEQUACY: (test (NOTE) code = 88365) INTERPRETATION: (test NO EPITHELIAL code = 97495) ABNORMALITY SEE BELOW OTHER COMMENTS: (test (NOTE) code = 8081) INSPECTOR SHEET METAL PARTS: (test FLAVIA code = 8101) MARGO LANIER(ASCP) PATHOLOGIST Michelle Ferrari, INTERPRETATION BY: (test M.D. code = 8122) LOCATION: (test code = (NOTE) 55284) CPT: (test code = 8140) (NOTE) HPV HIGH RISK WITH GENOTYPE, [id number] 00:00:00 Test Item Value Reference Range Interpretation Comments HPV HIGH RISK INTERP (test code = NEGATIVE 40266) HPV 16 (test code = 90382) NEGATIVE HPV 18 (test code = 64732) NEGATIVE HPV, HR, OTHER GENOTYPES (test code NEGATIVE = 57961) HPV HIGH RISK WITH GENOTYPE, [id number] 00:00:00 Test Item Value Reference Range Interpretation Comments HPV HIGH RISK INTERP (test code = NEGATIVE 93257) HPV 16 (test code = 71576) NEGATIVE HPV 18 (test code = 73494) NEGATIVE HPV, HR, OTHER GENOTYPES (test code NEGATIVE = 16122) HEMOGLOBIN [id number] 00:00:00 Test Item Value Reference Range Interpretation Comments HEMOGLOBIN A1c (test code = 43105) 5.5 % HEMOGLOBIN [id number] 00:00:00 Test Item Value Reference Range Interpretation Comments HEMOGLOBIN A1c (test code = 66124) 5.5 % HEMOGLOBIN [id number] 00:00:00 Test Item Value Reference Range Interpretation Comments HEMOGLOBIN A1c (test code = 23393) 5.5 % [id number] 00:00:00 Test Item Value Reference Range Interpretation Comments TSH (test code = 2821) 2.73 UIU/ML [id number] 00:00:00 Test Item Value Reference Range Interpretation Comments TSH (test code = 2821) 2.73 UIU/ML [id number] 00:00:00 Test Item Value Reference Range Interpretation Comments TSH (test code = 2821) 2.73 UIU/ML VITAMIN [id number] 00:00:00 Test Item Value Reference Range Interpretation Comments VITAMIN B-12 (test code = 2840) 915 PG/ML VITAMIN [id number] 00:00:00 Test Item Value Reference Range Interpretation Comments VITAMIN B-12 (test code = 2840) 915 PG/ML VITAMIN [id number] 00:00:00 Test Item Value Reference Range Interpretation Comments VITAMIN B-12 (test code = 2840) 915 PG/ML VITAMIN D, 25 [id number] 00:00:00 Test Item Value Reference Range Interpretation Comments VITAMIN D, 25 OH (test code = 4958) 24 NG/ML VITAMIN D, 25 [id number] 00:00:00 Test Item Value Reference Range Interpretation Comments VITAMIN D, 25 OH (test code = 4958) 24 NG/ML ACUTE HEPATITIS [id number] 00:00:00 Test Item Value Reference Range Interpretation Comments HEPATITIS A IgM (test code = NON-REACTIVE 76810) HEPATITIS B CORE IgM (test code NON-REACTIVE = 4644) HEPATITIS B SURF AG (test code = NON-REACTIVE 2739) HEPATITIS C ANTIBODY (test code REACTIVE = 4675) INTERPRETATION HEPATITIS A: (NOTE) (test code = 2552) INTERPRETATION HEPATITIS B: (NOTE) (test code = 43920) INTERPRETATION HEPATITIS C: (NOTE) (test code = 43374) ACUTE HEPATITIS [id number] 00:00:00 Test Item Value Reference Range Interpretation Comments HEPATITIS A IgM (test code = NON-REACTIVE 50492) HEPATITIS B CORE IgM (test code NON-REACTIVE = 4644) HEPATITIS B SURF AG (test code = NON-REACTIVE 7849) HEPATITIS C ANTIBODY (test code REACTIVE = 4675) INTERPRETATION HEPATITIS A: (NOTE) (test code = 2552) INTERPRETATION HEPATITIS B: (NOTE) (test code = 16042) INTERPRETATION HEPATITIS C: (NOTE) (test code = 44475) COMPREHENSIVE METABOLIC [id number] 00:00:00 Test Item Value Reference Range Interpretation Comments GLUCOSE (test code = 2217) 94 MG/DL BUN (test code = 2208) 5 MG/DL CREATININE (test code = 2214) 0.61 MG/DL eGFR AMER. (test code 114 ML/MIN/1.73 = 12844) eGFR NON- AMER. (test 99 ML/MIN/1.73 code = 85501) CALC BUN/CREAT (test code = 8 RATIO 2235) SODIUM (test code = 2231) 142 MEQ/L POTASSIUM (test code = 2228) 4.1 MEQ/L CHLORIDE (test code = 2215) 100 MEQ/L CARBON DIOXIDE (test code = 23 MEQ/L 2206) CALCIUM (test code = 2209) 9.9 MG/DL PROTEIN, TOTAL (test code = 8.0 G/DL 2228) ALBUMIN (test code = 2201) 4.5 G/DL CALC GLOBULIN (test code = 3.5 G/DL 2240) CALC A/G RATIO (test code = 1.3 RATIO 2234) BILIRUBIN, TOTAL (test code = 0.4 MG/DL 220) ALKALINE PHOSPHATASE (test 86 U/L code = 2204) AST (test code = 2218) 67 U/L ALT (test code = 2219) 57 U/L COMPREHENSIVE METABOLIC [id number] 00:00:00 Test Item Value Reference Range Interpretation Comments GLUCOSE (test code = 2217) 94 MG/DL BUN (test code = 2208) 5 MG/DL CREATININE (test code = 2214) 0.61 MG/DL eGFR AMER. (test code 114 ML/MIN/1.73 = 77068) eGFR NON- AMER. (test 99 ML/MIN/1.73 code = 78273) CALC BUN/CREAT (test code = 8 RATIO 2235) SODIUM (test code = 2231) 142 MEQ/L POTASSIUM (test code = 2228) 4.1 MEQ/L CHLORIDE (test code = 2215) 100 MEQ/L CARBON DIOXIDE (test code = 23 MEQ/L 2205) CALCIUM (test code = 2209) 9.9 MG/DL PROTEIN, TOTAL (test code = 8.0 G/DL 2228) ALBUMIN (test code = 2201) 4.5 G/DL CALC GLOBULIN (test code = 3.5 G/DL 2239) CALC A/G RATIO (test code = 1.3 RATIO 2233) BILIRUBIN, TOTAL (test code = 0.4 MG/DL 2206) ALKALINE PHOSPHATASE (test 86 U/L code = 2204) AST (test code = 2218) 67 U/L ALT (test code = 2219) 57 U/L LIPID [id number] 00:00:00 Test Item Value Reference Range Interpretation Comments CHOLESTEROL (test code = 2210) 157 MG/DL TRIGLYCERIDES (test code = 2232) 58 MG/DL HDL CHOLESTEROL (test code = 2220) 76 MG/DL CALC LDL CHOL (test code = 2237) 69 MG/DL RISK RATIO LDL/HDL (test code = 0.91 RATIO 2238) LIPID [id number] 00:00:00 Test Item Value Reference Range Interpretation Comments CHOLESTEROL (test code = 2210) 157 MG/DL TRIGLYCERIDES (test code = 2232) 58 MG/DL HDL CHOLESTEROL (test code = 2220) 76 MG/DL CALC LDL CHOL (test code = 2237) 69 MG/DL RISK RATIO LDL/HDL (test code = 0.91 RATIO 2238) CBC W/AUTO [id number] 00:00:00 Test Item Value Reference Range Interpretation Comments WBC (test code = 1001) 6.4 K/UL RBC (test code = 1002) 4.06 M/UL HEMOGLOBIN (test code = 1003) 12.8 G/DL HEMATOCRIT (test code = 1004) 37.1 % MCV (test code = 1005) 91.4 fL MCH (test code = 1006) 31.5 PG MCHC (test code = 1007) 34.5 G/DL RDW (test code = 1038) 13.9 % NEUTROPHILS (test code = 1008) 57.2 % LYMPHOCYTES (test code = 1010) 28.9 % MONOCYTES (test code = 1011) 13.1 % EOSINOPHILS (test code = 1012) 0.3 % BASOPHILS (test code = 1013) 0.5 % PLATELET COUNT (test code = 1015) 191 K/UL CBC W/AUTO [id number] 00:00:00 Test Item Value Reference Range Interpretation Comments WBC (test code = 1001) 6.4 K/UL RBC (test code = 1002) 4.06 M/UL HEMOGLOBIN (test code = 1003) 12.8 G/DL HEMATOCRIT (test code = 1004) 37.1 % MCV (test code = 1005) 91.4 fL MCH (test code = 1006) 31.5 PG MCHC (test code = 1007) 34.5 G/DL RDW (test code = 1038) 13.9 % NEUTROPHILS (test code = 1008) 57.2 % LYMPHOCYTES (test code = 1010) 28.9 % MONOCYTES (test code = 1011) 13.1 % EOSINOPHILS (test code = 1012) 0.3 % BASOPHILS (test code = 1013) 0.5 % PLATELET COUNT (test code = 1015) 191 K/UL CBC W/AUTO [id number] 00:00:00 Test Item Value Reference Range Interpretation Comments WBC (test code = 1001) 6.4 K/UL RBC (test code = 1002) 4.06 M/UL HEMOGLOBIN (test code = 1003) 12.8 G/DL HEMATOCRIT (test code = 1004) 37.1 % MCV (test code = 1005) 91.4 fL MCH (test code = 1006) 31.5 PG MCHC (test code = 1007) 34.5 G/DL RDW (test code = 1038) 13.9 % NEUTROPHILS (test code = 1008) 57.2 % LYMPHOCYTES (test code = 1010) 28.9 % MONOCYTES (test code = 1011) 13.1 % EOSINOPHILS (test code = 1012) 0.3 % BASOPHILS (test code = 1013) 0.5 % PLATELET COUNT (test code = 1015) 191 K/UL HEMOGLOBIN [id number] 00:00:00 Test Item Value Reference Range Interpretation Comments HEMOGLOBIN A1c (test code = 67808) 5.5 % HEMOGLOBIN [id number] 00:00:00 Test Item Value Reference Range Interpretation Comments HEMOGLOBIN A1c (test code = 28609) 5.5 % HEMOGLOBIN [id number] 00:00:00 Test Item Value Reference Range Interpretation Comments HEMOGLOBIN A1c (test code = 76817) 5.5 % [id number] 00:00:00 Test Item Value Reference Range Interpretation Comments TSH (test code = 2821) 2.73 UIU/ML [id number] 00:00:00 Test Item Value Reference Range Interpretation Comments TSH (test code = 2821) 2.73 UIU/ML [id number] 00:00:00 Test Item Value Reference Range Interpretation Comments TSH (test code = 2821) 2.73 UIU/ML VITAMIN [id number] 00:00:00 Test Item Value Reference Range Interpretation Comments VITAMIN B-12 (test code = 2840) 915 PG/ML VITAMIN [id number] 00:00:00 Test Item Value Reference Range Interpretation Comments VITAMIN B-12 (test code = 2840) 915 PG/ML VITAMIN [id number] 00:00:00 Test Item Value Reference Range Interpretation Comments VITAMIN B-12 (test code = 2840) 915 PG/ML VITAMIN D, 25 [id number] 00:00:00 Test Item Value Reference Range Interpretation Comments VITAMIN D, 25 OH (test code = 4958) 24 NG/ML VITAMIN D, 25 [id number] 00:00:00 Test Item Value Reference Range Interpretation Comments VITAMIN D, 25 OH (test code = 4958) 24 NG/ML ACUTE HEPATITIS [id number] 00:00:00 Test Item Value Reference Range Interpretation Comments HEPATITIS A IgM (test code = NON-REACTIVE 92210) HEPATITIS B CORE IgM (test code NON-REACTIVE = 4644) HEPATITIS B SURF AG (test code = NON-REACTIVE 2739) HEPATITIS C ANTIBODY (test code REACTIVE = 4675) INTERPRETATION HEPATITIS A: (NOTE) (test code = 2552) INTERPRETATION HEPATITIS B: (NOTE) (test code = 53538) INTERPRETATION HEPATITIS C: (NOTE) (test code = 39271) ACUTE HEPATITIS [id number] 00:00:00 Test Item Value Reference Range Interpretation Comments HEPATITIS A IgM (test code = NON-REACTIVE 20161) HEPATITIS B CORE IgM (test code NON-REACTIVE = 4644) HEPATITIS B SURF AG (test code = NON-REACTIVE 7969) HEPATITIS C ANTIBODY (test code REACTIVE = 4675) INTERPRETATION HEPATITIS A: (NOTE) (test code = 2552) INTERPRETATION HEPATITIS B: (NOTE) (test code = 44507) INTERPRETATION HEPATITIS C: (NOTE) (test code = 79270) COMPREHENSIVE METABOLIC [id number] 00:00:00 Test Item Value Reference Range Interpretation Comments GLUCOSE (test code = 2217) 94 MG/DL BUN (test code = 2208) 5 MG/DL CREATININE (test code = 2214) 0.61 MG/DL eGFR AMER. (test code 114 ML/MIN/1.73 = 81333) eGFR NON- AMER. (test 99 ML/MIN/1.73 code = 85623) CALC BUN/CREAT (test code = 8 RATIO 2235) SODIUM (test code = 2231) 142 MEQ/L POTASSIUM (test code = 2228) 4.1 MEQ/L CHLORIDE (test code = 2215) 100 MEQ/L CARBON DIOXIDE (test code = 23 MEQ/L 2206) CALCIUM (test code = 2209) 9.9 MG/DL PROTEIN, TOTAL (test code = 8.0 G/DL 222) ALBUMIN (test code = 2201) 4.5 G/DL CALC GLOBULIN (test code = 3.5 G/DL 2240) CALC A/G RATIO (test code = 1.3 RATIO 2234) BILIRUBIN, TOTAL (test code = 0.4 MG/DL 220) ALKALINE PHOSPHATASE (test 86 U/L code = 2204) AST (test code = 2218) 67 U/L ALT (test code = 2219) 57 U/L COMPREHENSIVE METABOLIC [id number] 00:00:00 Test Item Value Reference Range Interpretation Comments GLUCOSE (test code = 2217) 94 MG/DL BUN (test code = 2208) 5 MG/DL CREATININE (test code = 2214) 0.61 MG/DL eGFR AMER. (test code 114 ML/MIN/1.73 = 04305) eGFR NON- AMER. (test 99 ML/MIN/1.73 code = 23814) CALC BUN/CREAT (test code = 8 RATIO 2235) SODIUM (test code = 2231) 142 MEQ/L POTASSIUM (test code = 2228) 4.1 MEQ/L CHLORIDE (test code = 2215) 100 MEQ/L CARBON DIOXIDE (test code = 23 MEQ/L 2205) CALCIUM (test code = 2209) 9.9 MG/DL PROTEIN, TOTAL (test code = 8.0 G/DL 2228) ALBUMIN (test code = 2201) 4.5 G/DL CALC GLOBULIN (test code = 3.5 G/DL 2239) CALC A/G RATIO (test code = 1.3 RATIO 2233) BILIRUBIN, TOTAL (test code = 0.4 MG/DL 2206) ALKALINE PHOSPHATASE (test 86 U/L code = 2204) AST (test code = 2218) 67 U/L ALT (test code = 2219) 57 U/L LIPID [id number] 00:00:00 Test Item Value Reference Range Interpretation Comments CHOLESTEROL (test code = 2210) 157 MG/DL TRIGLYCERIDES (test code = 2232) 58 MG/DL HDL CHOLESTEROL (test code = 2220) 76 MG/DL CALC LDL CHOL (test code = 2237) 69 MG/DL RISK RATIO LDL/HDL (test code = 0.91 RATIO 2238) LIPID [id number] 00:00:00 Test Item Value Reference Range Interpretation Comments CHOLESTEROL (test code = 2210) 157 MG/DL TRIGLYCERIDES (test code = 2232) 58 MG/DL HDL CHOLESTEROL (test code = 2220) 76 MG/DL CALC LDL CHOL (test code = 2237) 69 MG/DL RISK RATIO LDL/HDL (test code = 0.91 RATIO 2238) CBC W/AUTO [id number] 00:00:00 Test Item Value Reference Range Interpretation Comments WBC (test code = 1001) 6.4 K/UL RBC (test code = 1002) 4.06 M/UL HEMOGLOBIN (test code = 1003) 12.8 G/DL HEMATOCRIT (test code = 1004) 37.1 % MCV (test code = 1005) 91.4 fL MCH (test code = 1006) 31.5 PG MCHC (test code = 1007) 34.5 G/DL RDW (test code = 1038) 13.9 % NEUTROPHILS (test code = 1008) 57.2 % LYMPHOCYTES (test code = 1010) 28.9 % MONOCYTES (test code = 1011) 13.1 % EOSINOPHILS (test code = 1012) 0.3 % BASOPHILS (test code = 1013) 0.5 % PLATELET COUNT (test code = 1015) 191 K/UL CBC W/AUTO [id number] 00:00:00 Test Item Value Reference Range Interpretation Comments WBC (test code = 1001) 6.4 K/UL RBC (test code = 1002) 4.06 M/UL HEMOGLOBIN (test code = 1003) 12.8 G/DL HEMATOCRIT (test code = 1004) 37.1 % MCV (test code = 1005) 91.4 fL MCH (test code = 1006) 31.5 PG MCHC (test code = 1007) 34.5 G/DL RDW (test code = 1038) 13.9 % NEUTROPHILS (test code = 1008) 57.2 % LYMPHOCYTES (test code = 1010) 28.9 % MONOCYTES (test code = 1011) 13.1 % EOSINOPHILS (test code = 1012) 0.3 % BASOPHILS (test code = 1013) 0.5 % PLATELET COUNT (test code = 1015) 191 K/UL CBC W/AUTO [id number] 00:00:00 Test Item Value Reference Range Interpretation Comments WBC (test code = 1001) 6.4 K/UL RBC (test code = 1002) 4.06 M/UL HEMOGLOBIN (test code = 1003) 12.8 G/DL HEMATOCRIT (test code = 1004) 37.1 % MCV (test code = 1005) 91.4 fL MCH (test code = 1006) 31.5 PG MCHC (test code = 1007) 34.5 G/DL RDW (test code = 1038) 13.9 % NEUTROPHILS (test code = 1008) 57.2 % LYMPHOCYTES (test code = 1010) 28.9 % MONOCYTES (test code = 1011) 13.1 % EOSINOPHILS (test code = 1012) 0.3 % BASOPHILS (test code = 1013) 0.5 % PLATELET COUNT (test code = 1015) 191 K/UL HEMOGLOBIN [id number] 00:00:00 Test Item Value Reference Range Interpretation Comments HEMOGLOBIN A1c (test code = 77433) 5.5 % HEMOGLOBIN [id number] 00:00:00 Test Item Value Reference Range Interpretation Comments HEMOGLOBIN A1c (test code = 48352) 5.5 % HEMOGLOBIN [id number] 00:00:00 Test Item Value Reference Range Interpretation Comments HEMOGLOBIN A1c (test code = 63617) 5.5 % [id number] 00:00:00 Test Item Value Reference Range Interpretation Comments TSH (test code = 2821) 2.73 UIU/ML [id number] 00:00:00 Test Item Value Reference Range Interpretation Comments TSH (test code = 2821) 2.73 UIU/ML [id number] 00:00:00 Test Item Value Reference Range Interpretation Comments TSH (test code = 2821) 2.73 UIU/ML VITAMIN [id number] 00:00:00 Test Item Value Reference Range Interpretation Comments VITAMIN B-12 (test code = 2840) 915 PG/ML VITAMIN [id number] 00:00:00 Test Item Value Reference Range Interpretation Comments VITAMIN B-12 (test code = 2840) 915 PG/ML VITAMIN [id number] 00:00:00 Test Item Value Reference Range Interpretation Comments VITAMIN B-12 (test code = 2840) 915 PG/ML VITAMIN D, 25 [id number] 00:00:00 Test Item Value Reference Range Interpretation Comments VITAMIN D, 25 OH (test code = 4958) 24 NG/ML VITAMIN D, 25 [id number] 00:00:00 Test Item Value Reference Range Interpretation Comments VITAMIN D, 25 OH (test code = 4958) 24 NG/ML ACUTE HEPATITIS [id number] 00:00:00 Test Item Value Reference Range Interpretation Comments HEPATITIS A IgM (test code = NON-REACTIVE 95146) HEPATITIS B CORE IgM (test code NON-REACTIVE = 4644) HEPATITIS B SURF AG (test code = NON-REACTIVE 2739) HEPATITIS C ANTIBODY (test code REACTIVE = 4675) INTERPRETATION HEPATITIS A: (NOTE) (test code = 2552) INTERPRETATION HEPATITIS B: (NOTE) (test code = 89539) INTERPRETATION HEPATITIS C: (NOTE) (test code = 41396) ACUTE HEPATITIS [id number] 00:00:00 Test Item Value Reference Range Interpretation Comments HEPATITIS A IgM (test code = NON-REACTIVE 50576) HEPATITIS B CORE IgM (test code NON-REACTIVE = 4644) HEPATITIS B SURF AG (test code = NON-REACTIVE 5089) HEPATITIS C ANTIBODY (test code REACTIVE = 4675) INTERPRETATION HEPATITIS A: (NOTE) (test code = 2552) INTERPRETATION HEPATITIS B: (NOTE) (test code = 92045) INTERPRETATION HEPATITIS C: (NOTE) (test code = 76201) COMPREHENSIVE METABOLIC [id number] 00:00:00 Test Item Value Reference Range Interpretation Comments GLUCOSE (test code = 2217) 94 MG/DL BUN (test code = 2208) 5 MG/DL CREATININE (test code = 2214) 0.61 MG/DL eGFR AMER. (test code 114 ML/MIN/1.73 = 99434) eGFR NON- AMER. (test 99 ML/MIN/1.73 code = 09859) CALC BUN/CREAT (test code = 8 RATIO 2235) SODIUM (test code = 2231) 142 MEQ/L POTASSIUM (test code = 2228) 4.1 MEQ/L CHLORIDE (test code = 2215) 100 MEQ/L CARBON DIOXIDE (test code = 23 MEQ/L 220) CALCIUM (test code = 2209) 9.9 MG/DL PROTEIN, TOTAL (test code = 8.0 G/DL 2228) ALBUMIN (test code = 2201) 4.5 G/DL CALC GLOBULIN (test code = 3.5 G/DL 2240) CALC A/G RATIO (test code = 1.3 RATIO 2233) BILIRUBIN, TOTAL (test code = 0.4 MG/DL 2206) ALKALINE PHOSPHATASE (test 86 U/L code = 2204) AST (test code = 2218) 67 U/L ALT (test code = 2219) 57 U/L COMPREHENSIVE METABOLIC [id number] 00:00:00 Test Item Value Reference Range Interpretation Comments GLUCOSE (test code = 2217) 94 MG/DL BUN (test code = 2208) 5 MG/DL CREATININE (test code = 2214) 0.61 MG/DL eGFR AMER. (test code 114 ML/MIN/1.73 = 26012) eGFR NON- AMER. (test 99 ML/MIN/1.73 code = 46353) CALC BUN/CREAT (test code = 8 RATIO 2235) SODIUM (test code = 2231) 142 MEQ/L POTASSIUM (test code = 2228) 4.1 MEQ/L CHLORIDE (test code = 2215) 100 MEQ/L CARBON DIOXIDE (test code = 23 MEQ/L 2205) CALCIUM (test code = 2209) 9.9 MG/DL PROTEIN, TOTAL (test code = 8.0 G/DL 2228) ALBUMIN (test code = 2201) 4.5 G/DL CALC GLOBULIN (test code = 3.5 G/DL 2239) CALC A/G RATIO (test code = 1.3 RATIO 2233) BILIRUBIN, TOTAL (test code = 0.4 MG/DL 2206) ALKALINE PHOSPHATASE (test 86 U/L code = 2204) AST (test code = 2218) 67 U/L ALT (test code = 2219) 57 U/L LIPID [id number] 00:00:00 Test Item Value Reference Range Interpretation Comments CHOLESTEROL (test code = 2210) 157 MG/DL TRIGLYCERIDES (test code = 2232) 58 MG/DL HDL CHOLESTEROL (test code = 2220) 76 MG/DL CALC LDL CHOL (test code = 2237) 69 MG/DL RISK RATIO LDL/HDL (test code = 0.91 RATIO 2238) LIPID [id number] 00:00:00 Test Item Value Reference Range Interpretation Comments CHOLESTEROL (test code = 2210) 157 MG/DL TRIGLYCERIDES (test code = 2232) 58 MG/DL HDL CHOLESTEROL (test code = 2220) 76 MG/DL CALC LDL CHOL (test code = 2237) 69 MG/DL RISK RATIO LDL/HDL (test code = 0.91 RATIO 2238) CBC W/AUTO [id number] 00:00:00 Test Item Value Reference Range Interpretation Comments WBC (test code = 1001) 6.4 K/UL RBC (test code = 1002) 4.06 M/UL HEMOGLOBIN (test code = 1003) 12.8 G/DL HEMATOCRIT (test code = 1004) 37.1 % MCV (test code = 1005) 91.4 fL MCH (test code = 1006) 31.5 PG MCHC (test code = 1007) 34.5 G/DL RDW (test code = 1038) 13.9 % NEUTROPHILS (test code = 1008) 57.2 % LYMPHOCYTES (test code = 1010) 28.9 % MONOCYTES (test code = 1011) 13.1 % EOSINOPHILS (test code = 1012) 0.3 % BASOPHILS (test code = 1013) 0.5 % PLATELET COUNT (test code = 1015) 191 K/UL CBC W/AUTO [id number] 00:00:00 Test Item Value Reference Range Interpretation Comments WBC (test code = 1001) 6.4 K/UL RBC (test code = 1002) 4.06 M/UL HEMOGLOBIN (test code = 1003) 12.8 G/DL HEMATOCRIT (test code = 1004) 37.1 % MCV (test code = 1005) 91.4 fL MCH (test code = 1006) 31.5 PG MCHC (test code = 1007) 34.5 G/DL RDW (test code = 1038) 13.9 % NEUTROPHILS (test code = 1008) 57.2 % LYMPHOCYTES (test code = 1010) 28.9 % MONOCYTES (test code = 1011) 13.1 % EOSINOPHILS (test code = 1012) 0.3 % BASOPHILS (test code = 1013) 0.5 % PLATELET COUNT (test code = 1015) 191 K/UL CBC W/AUTO [id number] 00:00:00 Test Item Value Reference Range Interpretation Comments WBC (test code = 1001) 6.4 K/UL RBC (test code = 1002) 4.06 M/UL HEMOGLOBIN (test code = 1003) 12.8 G/DL HEMATOCRIT (test code = 1004) 37.1 % MCV (test code = 1005) 91.4 fL MCH (test code = 1006) 31.5 PG MCHC (test code = 1007) 34.5 G/DL RDW (test code = 1038) 13.9 % NEUTROPHILS (test code = 1008) 57.2 % LYMPHOCYTES (test code = 1010) 28.9 % MONOCYTES (test code = 1011) 13.1 % EOSINOPHILS (test code = 1012) 0.3 % BASOPHILS (test code = 1013) 0.5 % PLATELET COUNT (test code = 1015) 191 K/UL [id number] 00:00:00 Test Item Value Reference Range Interpretation Comments CKMB (test code = 97012) 0.9 NG/ML [id number] 00:00:00 Test Item Value Reference Range Interpretation Comments CKMB (test code = ) 0.9 NG/ML HEPATITIS A IgM [REFLEX][id number] 00:00:00 Test Item Value Reference Range Interpretation Comments HEPATITIS A IgM (test code = NON-REACTIVE 4) COMPREHENSIVE METABOLIC [id number] 00:00:00 Test Item Value Reference Range Interpretation Comments GLUCOSE (test code = 2217) 80 MG/DL BUN (test code = 2208) 13 MG/DL CREATININE (test code = 2214) 0.6 MG/DL eGFR AMER. (test code 124 ML/MIN/1.73 = 84536) eGFR NON- AMER. (test 102 ML/MIN/1.73 code = 81334) CALCULATED BUN/CREAT (test 22 RATIO code = 2235) SODIUM (test code = 2231) 135 MEQ/L POTASSIUM (test code = 2228) 4.9 MEQ/L CHLORIDE (test code = 2215) 100 MEQ/L CARBON DIOXIDE (test code = 17 MEQ/L 2205) CALCIUM (test code = 2209) 9.7 MG/DL PROTEIN, TOTAL (test code = 8.3 G/DL 2228) ALBUMIN (test code = 2201) 4.3 G/DL CALCULATED GLOBULIN (test 4.0 G/DL code = 2240) CALCULATED A/G RATIO (test 1.1 RATIO code = 2234) BILIRUBIN, TOTAL (test code = 0.7 MG/DL 2206) ALKALINE PHOSPHATASE (test 81 U/L code = 2204) SGOT (AST) (test code = 2218) 76 U/L SGPT (ALT) (test code = 2219) 73 U/L COMPREHENSIVE METABOLIC [id number] 00:00:00 Test Item Value Reference Range Interpretation Comments GLUCOSE (test code = 2217) 80 MG/DL BUN (test code = 2208) 13 MG/DL CREATININE (test code = 2214) 0.6 MG/DL eGFR AMER. (test code 124 ML/MIN/1.73 = 16904) eGFR NON- AMER. (test 102 ML/MIN/1.73 code = 13094) CALCULATED BUN/CREAT (test 22 RATIO code = 2235) SODIUM (test code = 2231) 135 MEQ/L POTASSIUM (test code = 2228) 4.9 MEQ/L CHLORIDE (test code = 2215) 100 MEQ/L CARBON DIOXIDE (test code = 17 MEQ/L 2205) CALCIUM (test code = 220) 9.7 MG/DL PROTEIN, TOTAL (test code = 8.3 G/DL 2228) ALBUMIN (test code = 220) 4.3 G/DL CALCULATED GLOBULIN (test 4.0 G/DL code = 2240) CALCULATED A/G RATIO (test 1.1 RATIO code = 2234) BILIRUBIN, TOTAL (test code = 0.7 MG/DL 2206) ALKALINE PHOSPHATASE (test 81 U/L code = 2203) SGOT (AST) (test code = 221) 76 U/L SGPT (ALT) (test code = 2218) 73 U/L CK, [id number] 00:00:00 Test Item Value Reference Range Interpretation Comments CK, TOTAL (test code = 2013) 157 U/L CK, [id number] 00:00:00 Test Item Value Reference Range Interpretation Comments CK, TOTAL (test code = 2013) 157 U/L TROPONIN [id number] 00:00:00 Test Item Value Reference Range Interpretation Comments TROPONIN I (test code = 5949) <0.040 NG/ML HEPATITIS PROFILE (A,B,C)2015-04-23 00:00:00 Test Item Value Reference Range Interpretation Comments HEPATITIS A TOTAL AB (test code REACTIVE = 2725) HEPATITIS B SURF AG (test code = NON-REACTIVE 2738) HEP B CORE TOTAL AB (test code = REACTIVE 2728) HEPATITIS B SURFACE AB (test REACTIVE code = 2737) HEPATITIS C ANTIBODY (test code REACTIVE = 4675) INTERPRETATION HEPATITIS A: (NOTE) (test code = 2552) INTERPRETATION HEPATITIS B: (NOTE) (test code = 79319) INTERPRETATION HEPATITIS C: (NOTE) (test code = 28996) HEPATITIS PROFILE (A,B,C)2015-04-23 00:00:00 Test Item Value Reference Range Interpretation Comments HEPATITIS A TOTAL AB (test code REACTIVE = 2725) HEPATITIS B SURF AG (test code = NON-REACTIVE 2738) HEP B CORE TOTAL AB (test code = REACTIVE 2728) HEPATITIS B SURFACE AB (test REACTIVE code = 2737) HEPATITIS C ANTIBODY (test code REACTIVE = 4675) INTERPRETATION HEPATITIS A: (NOTE) (test code = 2552) INTERPRETATION HEPATITIS B: (NOTE) (test code = 88817) INTERPRETATION HEPATITIS C: (NOTE) (test code = 51887) [id number] 00:00:00 Test Item Value Reference Range Interpretation Comments CKMB (test code = 44371) 0.9 NG/ML [id number] 00:00:00 Test Item Value Reference Range Interpretation Comments CKMB (test code = 86191) 0.9 NG/ML HEPATITIS A IgM [REFLEX]2015-04-23 00:00:00 Test Item Value Reference Range Interpretation Comments HEPATITIS A IgM (test code = NON-REACTIVE 2727) COMPREHENSIVE METABOLIC [id number] 00:00:00 Test Item Value Reference Range Interpretation Comments GLUCOSE (test code = 2217) 80 MG/DL BUN (test code = 2208) 13 MG/DL CREATININE (test code = 2214) 0.6 MG/DL eGFR AMER. (test code 124 ML/MIN/1.73 = 62286) eGFR NON- AMER. (test 102 ML/MIN/1.73 code = 56020) CALCULATED BUN/CREAT (test 22 RATIO code = 2235) SODIUM (test code = 2231) 135 MEQ/L POTASSIUM (test code = 2228) 4.9 MEQ/L CHLORIDE (test code = 2215) 100 MEQ/L CARBON DIOXIDE (test code = 17 MEQ/L 2205) CALCIUM (test code = 2209) 9.7 MG/DL PROTEIN, TOTAL (test code = 8.3 G/DL 2228) ALBUMIN (test code = 2201) 4.3 G/DL CALCULATED GLOBULIN (test 4.0 G/DL code = 2240) CALCULATED A/G RATIO (test 1.1 RATIO code = 2234) BILIRUBIN, TOTAL (test code = 0.7 MG/DL 2206) ALKALINE PHOSPHATASE (test 81 U/L code = 2204) SGOT (AST) (test code = 2218) 76 U/L SGPT (ALT) (test code = 2219) 73 U/L COMPREHENSIVE METABOLIC [id number] 00:00:00 Test Item Value Reference Range Interpretation Comments GLUCOSE (test code = 2217) 80 MG/DL BUN (test code = 2208) 13 MG/DL CREATININE (test code = 2214) 0.6 MG/DL eGFR AMER. (test code 124 ML/MIN/1.73 = 60343) eGFR NON- AMER. (test 102 ML/MIN/1.73 code = 01972) CALCULATED BUN/CREAT (test 22 RATIO code = 2235) SODIUM (test code = 2231) 135 MEQ/L POTASSIUM (test code = 2228) 4.9 MEQ/L CHLORIDE (test code = 2215) 100 MEQ/L CARBON DIOXIDE (test code = 17 MEQ/L 2205) CALCIUM (test code = 2209) 9.7 MG/DL PROTEIN, TOTAL (test code = 8.3 G/DL 2228) ALBUMIN (test code = 2201) 4.3 G/DL CALCULATED GLOBULIN (test 4.0 G/DL code = 2240) CALCULATED A/G RATIO (test 1.1 RATIO code = 2234) BILIRUBIN, TOTAL (test code = 0.7 MG/DL 2206) ALKALINE PHOSPHATASE (test 81 U/L code = 220) SGOT (AST) (test code = 2218) 76 U/L SGPT (ALT) (test code = 2219) 73 U/L CK, [id number] 00:00:00 Test Item Value Reference Range Interpretation Comments CK, TOTAL (test code = 2013) 157 U/L CK, [id number] 00:00:00 Test Item Value Reference Range Interpretation Comments CK, TOTAL (test code = 2013) 157 U/L TROPONIN [id number] 00:00:00 Test Item Value Reference Range Interpretation Comments TROPONIN I (test code = 5949) <0.040 NG/ML HEPATITIS PROFILE (A,B,C)2015-04-23 00:00:00 Test Item Value Reference Range Interpretation Comments HEPATITIS A TOTAL AB (test code REACTIVE = 2725) HEPATITIS B SURF AG (test code = NON-REACTIVE 9) HEP B CORE TOTAL AB (test code = REACTIVE 2728) HEPATITIS B SURFACE AB (test REACTIVE code = 2737) HEPATITIS C ANTIBODY (test code REACTIVE = 6475) INTERPRETATION HEPATITIS A: (NOTE) (test code = 2552) INTERPRETATION HEPATITIS B: (NOTE) (test code = 06398) INTERPRETATION HEPATITIS C: (NOTE) (test code = 62573) HEPATITIS PROFILE (A,B,C)2015-04-23 00:00:00 Test Item Value Reference Range Interpretation Comments HEPATITIS A TOTAL AB (test code REACTIVE = 2725) HEPATITIS B SURF AG (test code = NON-REACTIVE 9) HEP B CORE TOTAL AB (test code = REACTIVE 9) HEPATITIS B SURFACE AB (test REACTIVE code = 2737) HEPATITIS C ANTIBODY (test code REACTIVE = 4675) INTERPRETATION HEPATITIS A: (NOTE) (test code = 2552) INTERPRETATION HEPATITIS B: (NOTE) (test code = 65521) INTERPRETATION HEPATITIS C: (NOTE) (test code = 69780) [id number] 00:00:00 Test Item Value Reference Range Interpretation Comments CKMB (test code = 80337) 0.9 NG/ML [id number] 00:00:00 Test Item Value Reference Range Interpretation Comments CKMB (test code = ) 0.9 NG/ML HEPATITIS A IgM [REFLEX]2015-04-23 00:00:00 Test Item Value Reference Range Interpretation Comments HEPATITIS A IgM (test code = NON-REACTIVE 2727) COMPREHENSIVE METABOLIC [id number] 00:00:00 Test Item Value Reference Range Interpretation Comments GLUCOSE (test code = 2217) 80 MG/DL BUN (test code = 2208) 13 MG/DL CREATININE (test code = 2214) 0.6 MG/DL eGFR AMER. (test code 124 ML/MIN/1.73 = 55133) eGFR NON- AMER. (test 102 ML/MIN/1.73 code = 50847) CALCULATED BUN/CREAT (test 22 RATIO code = 2235) SODIUM (test code = 2231) 135 MEQ/L POTASSIUM (test code = 2228) 4.9 MEQ/L CHLORIDE (test code = 2215) 100 MEQ/L CARBON DIOXIDE (test code = 17 MEQ/L 2205) CALCIUM (test code = 2209) 9.7 MG/DL PROTEIN, TOTAL (test code = 8.3 G/DL 2228) ALBUMIN (test code = 2201) 4.3 G/DL CALCULATED GLOBULIN (test 4.0 G/DL code = 2240) CALCULATED A/G RATIO (test 1.1 RATIO code = 2234) BILIRUBIN, TOTAL (test code = 0.7 MG/DL 2206) ALKALINE PHOSPHATASE (test 81 U/L code = 2204) SGOT (AST) (test code = 2218) 76 U/L SGPT (ALT) (test code = 2219) 73 U/L COMPREHENSIVE METABOLIC [id number] 00:00:00 Test Item Value Reference Range Interpretation Comments GLUCOSE (test code = 2217) 80 MG/DL BUN (test code = 2208) 13 MG/DL CREATININE (test code = 2214) 0.6 MG/DL eGFR AMER. (test code 124 ML/MIN/1.73 = 51778) eGFR NON- AMER. (test 102 ML/MIN/1.73 code = 50912) CALCULATED BUN/CREAT (test 22 RATIO code = 2235) SODIUM (test code = 2231) 135 MEQ/L POTASSIUM (test code = 2228) 4.9 MEQ/L CHLORIDE (test code = 2215) 100 MEQ/L CARBON DIOXIDE (test code = 17 MEQ/L 2205) CALCIUM (test code = 2209) 9.7 MG/DL PROTEIN, TOTAL (test code = 8.3 G/DL 2228) ALBUMIN (test code = 2201) 4.3 G/DL CALCULATED GLOBULIN (test 4.0 G/DL code = 2240) CALCULATED A/G RATIO (test 1.1 RATIO code = 2234) BILIRUBIN, TOTAL (test code = 0.7 MG/DL 2206) ALKALINE PHOSPHATASE (test 81 U/L code = 2204) SGOT (AST) (test code = 2218) 76 U/L SGPT (ALT) (test code = 2219) 73 U/L CK, [id number] 00:00:00 Test Item Value Reference Range Interpretation Comments CK, TOTAL (test code = 2013) 157 U/L CK, [id number] 00:00:00 Test Item Value Reference Range Interpretation Comments CK, TOTAL (test code = 2013) 157 U/L TROPONIN [id number] 00:00:00 Test Item Value Reference Range Interpretation Comments TROPONIN I (test code = 5949) <0.040 NG/ML HEPATITIS PROFILE (A,B,C)[id number] 00:00:00 Test Item Value Reference Range Interpretation Comments HEPATITIS A TOTAL AB (test code REACTIVE = 8804) HEPATITIS B SURF AG (test code = NON-REACTIVE 669) HEP B CORE TOTAL AB (test code = REACTIVE 2729) HEPATITIS B SURFACE AB (test REACTIVE code = 2737) HEPATITIS C ANTIBODY (test code REACTIVE = 4675) INTERPRETATION HEPATITIS A: (NOTE) (test code = 2552) INTERPRETATION HEPATITIS B: (NOTE) (test code = 99086) INTERPRETATION HEPATITIS C: (NOTE) (test code = 79555) HEPATITIS PROFILE (A,B,C)[id number] 00:00:00 Test Item Value Reference Range Interpretation Comments HEPATITIS A TOTAL AB (test code REACTIVE = 2725) HEPATITIS B SURF AG (test code = NON-REACTIVE 2739) HEP B CORE TOTAL AB (test code = REACTIVE 2729) HEPATITIS B SURFACE AB (test REACTIVE code = 2737) HEPATITIS C ANTIBODY (test code REACTIVE = 4675) INTERPRETATION HEPATITIS A: (NOTE) (test code = 2552) INTERPRETATION HEPATITIS B: (NOTE) (test code = 61339) INTERPRETATION HEPATITIS C: (NOTE) (test code = 45623) CBC W/AUTO [id number] 00:00:00 Test Item Value Reference Range Interpretation Comments WBC (test code = 1001) 6.4 K/UL RBC (test code = 1002) 3.81 M/UL HEMOGLOBIN (test code = 1003) 12.1 G/DL HEMATOCRIT (test code = 1004) 36.7 % MCV (test code = 1005) 96.3 fL MCH (test code = 1006) 31.8 PG MCHC (test code = 1007) 33.0 G/DL RDW (test code = 1038) 14.5 % NEUTROPHILS (test code = 1008) 56 % LYMPHOCYTES (test code = 1010) 33 % MONOCYTES (test code = 1011) 9 % EOSINOPHILS (test code = 1012) 1 % BASOPHILS (test code = 1013) % PLATELET COUNT (test code = 1015) 163 K/UL CBC W/AUTO [id number] 00:00:00 Test Item Value Reference Range Interpretation Comments WBC (test code = 1001) 6.4 K/UL RBC (test code = 1002) 3.81 M/UL HEMOGLOBIN (test code = 1003) 12.1 G/DL HEMATOCRIT (test code = 1004) 36.7 % MCV (test code = 1005) 96.3 fL MCH (test code = 1006) 31.8 PG MCHC (test code = 1007) 33.0 G/DL RDW (test code = 1038) 14.5 % NEUTROPHILS (test code = 1008) 56 % LYMPHOCYTES (test code = 1010) 33 % MONOCYTES (test code = 1011) 9 % EOSINOPHILS (test code = 1012) 1 % BASOPHILS (test code = 1013) % PLATELET COUNT (test code = 1015) 163 K/UL CBC W/AUTO [id number] 00:00:00 Test Item Value Reference Range Interpretation Comments WBC (test code = 1001) 6.4 K/UL RBC (test code = 1002) 3.81 M/UL HEMOGLOBIN (test code = 1003) 12.1 G/DL HEMATOCRIT (test code = 1004) 36.7 % MCV (test code = 1005) 96.3 fL MCH (test code = 1006) 31.8 PG MCHC (test code = 1007) 33.0 G/DL RDW (test code = 1038) 14.5 % NEUTROPHILS (test code = 1008) 56 % LYMPHOCYTES (test code = 1010) 33 % MONOCYTES (test code = 1011) 9 % EOSINOPHILS (test code = 1012) 1 % BASOPHILS (test code = 1013) % PLATELET COUNT (test code = 1015) 163 K/UL COMPREHENSIVE METABOLIC [id number] 00:00:00 Test Item Value Reference Range Interpretation Comments GLUCOSE (test code = 2217) 85 MG/DL BUN (test code = 2208) 10 MG/DL CREATININE (test code = 2214) 0.7 MG/DL eGFR AMER. (test code 104 ML/MIN/1.73 = 07828) eGFR NON- AMER. (test 86 ML/MIN/1.73 code = 12226) CALCULATED BUN/CREAT (test 14 RATIO code = 2235) SODIUM (test code = 2231) 139 MEQ/L POTASSIUM (test code = 2228) 4.4 MEQ/L CHLORIDE (test code = 2215) 109 MEQ/L CARBON DIOXIDE (test code = 23 MEQ/L 2205) CALCIUM (test code = 2209) 9.6 MG/DL PROTEIN, TOTAL (test code = 7.2 G/DL 2228) ALBUMIN (test code = 2201) 3.7 G/DL CALCULATED GLOBULIN (test 3.5 G/DL code = 2240) CALCULATED A/G RATIO (test 1.1 RATIO code = 2234) BILIRUBIN, TOTAL (test code = 0.3 MG/DL 2206) ALKALINE PHOSPHATASE (test 91 U/L code = 2204) SGOT (AST) (test code = 2218) 51 U/L SGPT (ALT) (test code = 2219) 63 U/L COMPREHENSIVE METABOLIC [id number] 00:00:00 Test Item Value Reference Range Interpretation Comments GLUCOSE (test code = 2217) 85 MG/DL BUN (test code = 2208) 10 MG/DL CREATININE (test code = 2214) 0.7 MG/DL eGFR AMER. (test code 104 ML/MIN/1.73 = 16966) eGFR NON- AMER. (test 86 ML/MIN/1.73 code = 28075) CALCULATED BUN/CREAT (test 14 RATIO code = 2235) SODIUM (test code = 2231) 139 MEQ/L POTASSIUM (test code = 2228) 4.4 MEQ/L CHLORIDE (test code = 2215) 109 MEQ/L CARBON DIOXIDE (test code = 23 MEQ/L 2205) CALCIUM (test code = 2209) 9.6 MG/DL PROTEIN, TOTAL (test code = 7.2 G/DL 2228) ALBUMIN (test code = 2201) 3.7 G/DL CALCULATED GLOBULIN (test 3.5 G/DL code = 2240) CALCULATED A/G RATIO (test 1.1 RATIO code = 2234) BILIRUBIN, TOTAL (test code = 0.3 MG/DL 2206) ALKALINE PHOSPHATASE (test 91 U/L code = 2204) SGOT (AST) (test code = 2218) 51 U/L SGPT (ALT) (test code = 2219) 63 U/L [id number] 00:00:00 Test Item Value Reference Range Interpretation Comments TSH (test code = 2821) 0.7 UIU/ML [id number] 00:00:00 Test Item Value Reference Range Interpretation Comments TSH (test code = 2821) 0.7 UIU/ML [id number] 00:00:00 Test Item Value Reference Range Interpretation Comments TSH (test code = 2821) 0.7 UIU/ML LIPID [id number] 00:00:00 Test Item Value Reference Range Interpretation Comments CHOLESTEROL (test code = 2210) 147 MG/DL TRIGLYCERIDES (test code = 2232) 52 MG/DL HDL CHOLESTEROL (test code = 2220) 64 MG/DL CALCULATED LDL CHOL (test code = 73 MG/DL 2237) RISK RATIO LDL/HDL (test code = 1.13 RATIO 2238) LIPID [id number] 00:00:00 Test Item Value Reference Range Interpretation Comments CHOLESTEROL (test code = 2210) 147 MG/DL TRIGLYCERIDES (test code = 2232) 52 MG/DL HDL CHOLESTEROL (test code = 2220) 64 MG/DL CALCULATED LDL CHOL (test code = 73 MG/DL 2237) RISK RATIO LDL/HDL (test code = 1.13 RATIO 2238) CBC W/AUTO [id number] 00:00:00 Test Item Value Reference Range Interpretation Comments WBC (test code = 1001) 6.4 K/UL RBC (test code = 1002) 3.81 M/UL HEMOGLOBIN (test code = 1003) 12.1 G/DL HEMATOCRIT (test code = 1004) 36.7 % MCV (test code = 1005) 96.3 fL MCH (test code = 1006) 31.8 PG MCHC (test code = 1007) 33.0 G/DL RDW (test code = 1038) 14.5 % NEUTROPHILS (test code = 1008) 56 % LYMPHOCYTES (test code = 1010) 33 % MONOCYTES (test code = 1011) 9 % EOSINOPHILS (test code = 1012) 1 % BASOPHILS (test code = 1013) % PLATELET COUNT (test code = 1015) 163 K/UL CBC W/AUTO [id number] 00:00:00 Test Item Value Reference Range Interpretation Comments WBC (test code = 1001) 6.4 K/UL RBC (test code = 1002) 3.81 M/UL HEMOGLOBIN (test code = 1003) 12.1 G/DL HEMATOCRIT (test code = 1004) 36.7 % MCV (test code = 1005) 96.3 fL MCH (test code = 1006) 31.8 PG MCHC (test code = 1007) 33.0 G/DL RDW (test code = 1038) 14.5 % NEUTROPHILS (test code = 1008) 56 % LYMPHOCYTES (test code = 1010) 33 % MONOCYTES (test code = 1011) 9 % EOSINOPHILS (test code = 1012) 1 % BASOPHILS (test code = 1013) % PLATELET COUNT (test code = 1015) 163 K/UL CBC W/AUTO [id number] 00:00:00 Test Item Value Reference Range Interpretation Comments WBC (test code = 1001) 6.4 K/UL RBC (test code = 1002) 3.81 M/UL HEMOGLOBIN (test code = 1003) 12.1 G/DL HEMATOCRIT (test code = 1004) 36.7 % MCV (test code = 1005) 96.3 fL MCH (test code = 1006) 31.8 PG MCHC (test code = 1007) 33.0 G/DL RDW (test code = 1038) 14.5 % NEUTROPHILS (test code = 1008) 56 % LYMPHOCYTES (test code = 1010) 33 % MONOCYTES (test code = 1011) 9 % EOSINOPHILS (test code = 1012) 1 % BASOPHILS (test code = 1013) % PLATELET COUNT (test code = 1015) 163 K/UL COMPREHENSIVE METABOLIC [id number] 00:00:00 Test Item Value Reference Range Interpretation Comments GLUCOSE (test code = 2217) 85 MG/DL BUN (test code = 2208) 10 MG/DL CREATININE (test code = 2214) 0.7 MG/DL eGFR AMER. (test code 104 ML/MIN/1.73 = 24283) eGFR NON- AMER. (test 86 ML/MIN/1.73 code = 38794) CALCULATED BUN/CREAT (test 14 RATIO code = 2235) SODIUM (test code = 2231) 139 MEQ/L POTASSIUM (test code = 2228) 4.4 MEQ/L CHLORIDE (test code = 2215) 109 MEQ/L CARBON DIOXIDE (test code = 23 MEQ/L 2205) CALCIUM (test code = 2209) 9.6 MG/DL PROTEIN, TOTAL (test code = 7.2 G/DL 2228) ALBUMIN (test code = 2201) 3.7 G/DL CALCULATED GLOBULIN (test 3.5 G/DL code = 2240) CALCULATED A/G RATIO (test 1.1 RATIO code = 2234) BILIRUBIN, TOTAL (test code = 0.3 MG/DL 2206) ALKALINE PHOSPHATASE (test 91 U/L code = 2204) SGOT (AST) (test code = 2218) 51 U/L SGPT (ALT) (test code = 2219) 63 U/L COMPREHENSIVE METABOLIC [id number] 00:00:00 Test Item Value Reference Range Interpretation Comments GLUCOSE (test code = 2217) 85 MG/DL BUN (test code = 2208) 10 MG/DL CREATININE (test code = 2214) 0.7 MG/DL eGFR AMER. (test code 104 ML/MIN/1.73 = 81341) eGFR NON- AMER. (test 86 ML/MIN/1.73 code = 10394) CALCULATED BUN/CREAT (test 14 RATIO code = 2235) SODIUM (test code = 2231) 139 MEQ/L POTASSIUM (test code = 2228) 4.4 MEQ/L CHLORIDE (test code = 2215) 109 MEQ/L CARBON DIOXIDE (test code = 23 MEQ/L 2205) CALCIUM (test code = 2209) 9.6 MG/DL PROTEIN, TOTAL (test code = 7.2 G/DL 2228) ALBUMIN (test code = 2201) 3.7 G/DL CALCULATED GLOBULIN (test 3.5 G/DL code = 2240) CALCULATED A/G RATIO (test 1.1 RATIO code = 2234) BILIRUBIN, TOTAL (test code = 0.3 MG/DL 2206) ALKALINE PHOSPHATASE (test 91 U/L code = 2204) SGOT (AST) (test code = 2218) 51 U/L SGPT (ALT) (test code = 2219) 63 U/L [id number] 00:00:00 Test Item Value Reference Range Interpretation Comments TSH (test code = 2821) 0.7 UIU/ML [id number] 00:00:00 Test Item Value Reference Range Interpretation Comments TSH (test code = 2821) 0.7 UIU/ML [id number] 00:00:00 Test Item Value Reference Range Interpretation Comments TSH (test code = 2821) 0.7 UIU/ML LIPID [id number] 00:00:00 Test Item Value Reference Range Interpretation Comments CHOLESTEROL (test code = 2210) 147 MG/DL TRIGLYCERIDES (test code = 2232) 52 MG/DL HDL CHOLESTEROL (test code = 2220) 64 MG/DL CALCULATED LDL CHOL (test code = 73 MG/DL 2236) RISK RATIO LDL/HDL (test code = 1.13 RATIO 2238) LIPID [id number] 00:00:00 Test Item Value Reference Range Interpretation Comments CHOLESTEROL (test code = 2210) 147 MG/DL TRIGLYCERIDES (test code = 2232) 52 MG/DL HDL CHOLESTEROL (test code = 2220) 64 MG/DL CALCULATED LDL CHOL (test code = 73 MG/DL 2236) RISK RATIO LDL/HDL (test code = 1.13 RATIO 2238) CBC W/AUTO [id number] 00:00:00 Test Item Value Reference Range Interpretation Comments WBC (test code = 1001) 6.4 K/UL RBC (test code = 1002) 3.81 M/UL HEMOGLOBIN (test code = 1003) 12.1 G/DL HEMATOCRIT (test code = 1004) 36.7 % MCV (test code = 1005) 96.3 fL MCH (test code = 1006) 31.8 PG MCHC (test code = 1007) 33.0 G/DL RDW (test code = 1038) 14.5 % NEUTROPHILS (test code = 1008) 56 % LYMPHOCYTES (test code = 1010) 33 % MONOCYTES (test code = 1011) 9 % EOSINOPHILS (test code = 1012) 1 % BASOPHILS (test code = 1013) % PLATELET COUNT (test code = 1015) 163 K/UL CBC W/AUTO [id number] 00:00:00 Test Item Value Reference Range Interpretation Comments WBC (test code = 1001) 6.4 K/UL RBC (test code = 1002) 3.81 M/UL HEMOGLOBIN (test code = 1003) 12.1 G/DL HEMATOCRIT (test code = 1004) 36.7 % MCV (test code = 1005) 96.3 fL MCH (test code = 1006) 31.8 PG MCHC (test code = 1007) 33.0 G/DL RDW (test code = 1038) 14.5 % NEUTROPHILS (test code = 1008) 56 % LYMPHOCYTES (test code = 1010) 33 % MONOCYTES (test code = 1011) 9 % EOSINOPHILS (test code = 1012) 1 % BASOPHILS (test code = 1013) % PLATELET COUNT (test code = 1015) 163 K/UL CBC W/AUTO [id number] 00:00:00 Test Item Value Reference Range Interpretation Comments WBC (test code = 1001) 6.4 K/UL RBC (test code = 1002) 3.81 M/UL HEMOGLOBIN (test code = 1003) 12.1 G/DL HEMATOCRIT (test code = 1004) 36.7 % MCV (test code = 1005) 96.3 fL MCH (test code = 1006) 31.8 PG MCHC (test code = 1007) 33.0 G/DL RDW (test code = 1038) 14.5 % NEUTROPHILS (test code = 1008) 56 % LYMPHOCYTES (test code = 1010) 33 % MONOCYTES (test code = 1011) 9 % EOSINOPHILS (test code = 1012) 1 % BASOPHILS (test code = 1013) % PLATELET COUNT (test code = 1015) 163 K/UL COMPREHENSIVE METABOLIC [id number] 00:00:00 Test Item Value Reference Range Interpretation Comments GLUCOSE (test code = 2217) 85 MG/DL BUN (test code = 2208) 10 MG/DL CREATININE (test code = 2214) 0.7 MG/DL eGFR AMER. (test code 104 ML/MIN/1.73 = 87248) eGFR NON- AMER. (test 86 ML/MIN/1.73 code = 00302) CALCULATED BUN/CREAT (test 14 RATIO code = 2235) SODIUM (test code = 2231) 139 MEQ/L POTASSIUM (test code = 2228) 4.4 MEQ/L CHLORIDE (test code = 2215) 109 MEQ/L CARBON DIOXIDE (test code = 23 MEQ/L 2206) CALCIUM (test code = 2209) 9.6 MG/DL PROTEIN, TOTAL (test code = 7.2 G/DL 2228) ALBUMIN (test code = 2201) 3.7 G/DL CALCULATED GLOBULIN (test 3.5 G/DL code = 2240) CALCULATED A/G RATIO (test 1.1 RATIO code = 2234) BILIRUBIN, TOTAL (test code = 0.3 MG/DL 220) ALKALINE PHOSPHATASE (test 91 U/L code = 2204) SGOT (AST) (test code = 2218) 51 U/L SGPT (ALT) (test code = 2219) 63 U/L COMPREHENSIVE METABOLIC [id number] 00:00:00 Test Item Value Reference Range Interpretation Comments GLUCOSE (test code = 2217) 85 MG/DL BUN (test code = 2208) 10 MG/DL CREATININE (test code = 2214) 0.7 MG/DL eGFR AMER. (test code 104 ML/MIN/1.73 = 27204) eGFR NON- AMER. (test 86 ML/MIN/1.73 code = 03373) CALCULATED BUN/CREAT (test 14 RATIO code = 2235) SODIUM (test code = 2231) 139 MEQ/L POTASSIUM (test code = 2228) 4.4 MEQ/L CHLORIDE (test code = 2215) 109 MEQ/L CARBON DIOXIDE (test code = 23 MEQ/L 2205) CALCIUM (test code = 2209) 9.6 MG/DL PROTEIN, TOTAL (test code = 7.2 G/DL 2228) ALBUMIN (test code = 2201) 3.7 G/DL CALCULATED GLOBULIN (test 3.5 G/DL code = 2240) CALCULATED A/G RATIO (test 1.1 RATIO code = 2234) BILIRUBIN, TOTAL (test code = 0.3 MG/DL 2206) ALKALINE PHOSPHATASE (test 91 U/L code = 2204) SGOT (AST) (test code = 2218) 51 U/L SGPT (ALT) (test code = 2219) 63 U/L [id number] 00:00:00 Test Item Value Reference Range Interpretation Comments TSH (test code = 2821) 0.7 UIU/ML [id number] 00:00:00 Test Item Value Reference Range Interpretation Comments TSH (test code = 2821) 0.7 UIU/ML [id number] 00:00:00 Test Item Value Reference Range Interpretation Comments TSH (test code = 2821) 0.7 UIU/ML LIPID [id number] 00:00:00 Test Item Value Reference Range Interpretation Comments CHOLESTEROL (test code = 2210) 147 MG/DL TRIGLYCERIDES (test code = 2232) 52 MG/DL HDL CHOLESTEROL (test code = 2220) 64 MG/DL CALCULATED LDL CHOL (test code = 73 MG/DL 2236) RISK RATIO LDL/HDL (test code = 1.13 RATIO 2238) LIPID [id number] 00:00:00 Test Item Value Reference Range Interpretation Comments CHOLESTEROL (test code = 2210) 147 MG/DL TRIGLYCERIDES (test code = 2232) 52 MG/DL HDL CHOLESTEROL (test code = 2220) 64 MG/DL CALCULATED LDL CHOL (test code = 73 MG/DL 2237) RISK RATIO LDL/HDL (test code = 1.13 RATIO 2238) HPV HIGH RISK WITH GENOTYPE, [id number] 00:00:00 Test Item Value Reference Range Interpretation Comments HPV HIGH RISK INTERP (test code = POSITIVE 52521) HPV 16 (test code = 92256) NEGATIVE HPV 18 (test code = 37825) NEGATIVE HPV, HR, OTHER GENOTYPES (test code POSITIVE = 12255) HPV HIGH RISK WITH GENOTYPE, [id number] 00:00:00 Test Item Value Reference Range Interpretation Comments HPV HIGH RISK INTERP (test code = POSITIVE 15785) HPV 16 (test code = 05600) NEGATIVE HPV 18 (test code = 38172) NEGATIVE HPV, HR, OTHER GENOTYPES (test code POSITIVE = 61332) HPV HIGH RISK WITH GENOTYPE, [id number] 00:00:00 Test Item Value Reference Range Interpretation Comments HPV HIGH RISK INTERP (test code = POSITIVE 14942) HPV 16 (test code = 02931) NEGATIVE HPV 18 (test code = 21461) NEGATIVE HPV, HR, OTHER GENOTYPES (test code POSITIVE = 64951) HPV HIGH RISK WITH GENOTYPE, [id number] 00:00:00 Test Item Value Reference Range Interpretation Comments HPV HIGH RISK INTERP (test code = POSITIVE 28024) HPV 16 (test code = 70037) NEGATIVE HPV 18 (test code = 22553) NEGATIVE HPV, HR, OTHER GENOTYPES (test code POSITIVE = 52563) HPV HIGH RISK WITH GENOTYPE, [id number] 00:00:00 Test Item Value Reference Range Interpretation Comments HPV HIGH RISK INTERP (test code = POSITIVE 69396) HPV 16 (test code = 57657) NEGATIVE HPV 18 (test code = 44265) NEGATIVE HPV, HR, OTHER GENOTYPES (test code POSITIVE = 43422) HPV HIGH RISK WITH GENOTYPE, [id number] 00:00:00 Test Item Value Reference Range Interpretation Comments HPV HIGH RISK INTERP (test code = POSITIVE 84591) HPV 16 (test code = 02362) NEGATIVE HPV 18 (test code = 18483) NEGATIVE HPV, HR, OTHER GENOTYPES (test code POSITIVE = 79105) PAP TEST, THINPREP, [id number] 00:00:00 Test Item Value Reference Range Interpretation Comments SOURCE: (test code = PAP 8001) SLIDES: (test code = 1 8011) LMP: (test code = NOT GIVEN 8021) SPECIMEN ADEQUACY: (NOTE) (test code = 48352) INTERPRETATION: (test NO EPITHELIAL code = 47780) ABNORMALITY SEE BELOW OTHER COMMENTS: (test (NOTE) code = 8081) INSPECTOR SHEET METAL PARTS: (NOTE) (test code = 8101) LOCATION: (test code MAIN = 93050) PAP TEST, THINPREP, [id number] 00:00:00 Test Item Value Reference Range Interpretation Comments SOURCE: (test code = PAP 8001) SLIDES: (test code = 1 8011) LMP: (test code = NOT GIVEN 8021) SPECIMEN ADEQUACY: (NOTE) (test code = 41247) INTERPRETATION: (test NO EPITHELIAL code = 83149) ABNORMALITY SEE BELOW OTHER COMMENTS: (test (NOTE) code = 8081) INSPECTOR SHEET METAL PARTS: (NOTE) (test code = 8101) LOCATION: (test code MAIN = 63044) PAP TEST, THINPREP, [id number] 00:00:00 Test Item Value Reference Range Interpretation Comments SOURCE: (test code = PAP 8001) SLIDES: (test code = 1 8011) LMP: (test code = NOT GIVEN 8021) SPECIMEN ADEQUACY: (NOTE) (test code = 12719) INTERPRETATION: (test NO EPITHELIAL code = 83722) ABNORMALITY SEE BELOW OTHER COMMENTS: (test (NOTE) code = 8081) INSPECTOR SHEET METAL PARTS: (NOTE) (test code = 8101) LOCATION: (test code MAIN = 34837) PAP TEST, THINPREP, [id number] 00:00:00 Test Item Value Reference Range Interpretation Comments SOURCE: (test code = PAP 8001) SLIDES: (test code = 1 8011) LMP: (test code = NOT GIVEN 8021) SPECIMEN ADEQUACY: (NOTE) (test code = 00300) INTERPRETATION: (test NO EPITHELIAL code = 69420) ABNORMALITY SEE BELOW OTHER COMMENTS: (test (NOTE) code = 8081) INSPECTOR SHEET METAL PARTS: (NOTE) (test code = 8101) LOCATION: (test code MAIN = 66297) PAP TEST, THINPREP, [id number] 00:00:00 Test Item Value Reference Range Interpretation Comments SOURCE: (test code = PAP 8001) SLIDES: (test code = 1 8011) LMP: (test code = NOT GIVEN 8021) SPECIMEN ADEQUACY: (NOTE) (test code = 65106) INTERPRETATION: (test NO EPITHELIAL code = 35655) ABNORMALITY SEE BELOW OTHER COMMENTS: (test (NOTE) code = 8081) INSPECTOR SHEET METAL PARTS: (NOTE) (test code = 8101) LOCATION: (test code MAIN = 34843) PAP TEST, THINPREP, [id number] 00:00:00 Test Item Value Reference Range Interpretation Comments SOURCE: (test code = PAP 8001) SLIDES: (test code = 1 8011) LMP: (test code = NOT GIVEN 8021) SPECIMEN ADEQUACY: (NOTE) (test code = 81676) INTERPRETATION: (test NO EPITHELIAL code = 93913) ABNORMALITY SEE BELOW OTHER COMMENTS: (test (NOTE) code = 8081) INSPECTOR SHEET METAL PARTS: (NOTE) (test code = 8101) LOCATION: (test code MAIN = 94524)
[2022-09-28] MEDS ORDERED: NA CHLORIDE 0.9% 1,000 ML ONE (20:05)
[2022-09-28 20:35] LABS: Potassium 3.7 mEq/L (3.5-5.1)
[2022-09-28 20:50] LABS: Absolute Lymphocytes (CBC) 1.2 K/uL (0.7-4.9); Hematocrit 25.3 % (36.0-45.0); Lymphocytes % 24.7 % (15.3-44.8); MCV 72.2 fL (80-100); MPV 8.7 fL (7.6-11.3); RBC Red Blood Cell Count 3.51 M/uL (3.86-4.86)
--- NOTE | 2022-09-28 21:15 | RAD REPORT ---
EXAM DESCRIPTION: CT - Head C Spine Cap W Con - 09/28/2022 9:04 pm CLINICAL HISTORY: Trauma, head and neck injury. Chest, abdomen and pelvis pain. fall COMPARISON: Thorax Wo Con dated 09/12/2022 TECHNIQUE: CT head without contrast. CT cervical spine without contrast with coronal and sagittal reformatted images. CT chest, abdomen and pelvis with IV contrast (approximately 100 mL nonionic IV contrast) with marquez l and sagittal reformatted images of the spine. All CT scans are performed using dose optimization technique as appropriate and may include automated exposure control or mA/KV adjustment according to patient size. FINDINGS: CT HEAD WITHOUT CONTRAST: No intracranial hemorrhage, hydrocephalus or extra-axial fluid collection. Moderate generalized brain atrophy. No areas of brain edema or midline shift. Right mastoid effusion. Evidence of prior partial right mastoidectomy. The calvarium is intact. CT CERVICAL SPINE WITHOUT CONTRAST: No fracture or subluxation. Moderate lower cervical degenerative spondylosis. The prevertebral soft t issues are normal in thickness.Heavy atherosclerosis right carotid bulb. CT CHEST, ABDOMEN, PELVIS WITH CONTRAST: Mild diffuse COPD. 2 cm spiculated mass is present in right upper lobe measuring 20 mm, likely neopla jocelyn.No pneumothorax or pericardial/pleural fluid. Mild diffuse fatty liver. Cholecystectomy clips. Numerous gastrosplenic collaterals are present in th e left upper quadrant. Adrenal glands, kidneys and pancreas are within normal limits. Heavy atheroscl erosis is seen. No bowel obstruction. No free air. Several old right rib fractures are seen. IMPRESSION: Negative for acute traumatic findings. 2 cm spiculated mass in the right upper lobe likely bronchogenic carcinoma.
[2022-09-28 22:01] LABS: Specific Gravity 1.006 (1.005-1.030); Urine Bacteria <20 /HPF (<20); Urine Bilirubin NEGATIVE (Negative); Urine Blood 1+ (Negative); Urine Clarity Clear (Clear); Urine Color Light-Yellow (Yellow); Urine Crystals Unidentified Few /HPF (None Seen); Urine Glucose NEGATIVE (Negative); Urine Protein NEGATIVE (Negative); Urine RBC <5 /HPF (None Seen); Urine Urobilinogen Normal (Normal); Urine pH 5.5 (5.0-7.0)
--- NOTE | 2022-09-28 22:36 | EDPHYS ---
Physician Documentation [facility] Name: Lakeisha Kumari Age: 67 yrs Sex: Female : 1955 Arrival Date: 09/28/2022 Time: 19:03 Bed 19 Private MD: ED Physician Wale Brady HPI: 09/28 19:50 This 67 yrs old Female presents to ER via EMS with complaints of Fall Injury. cp 19:50 Details of fall: The patient fell from an upright position, while walking. Onset: The cp symptoms/episode began/occurred 3 day(s) ago. Associated injuries: The patient sustained right low back and right flank. 19:50 Patient reports fall after losing balance 3 days ago and striking right low back and cp right flank area. Admits to drinking prior to coming to ED by EMS today. Admits to daily alcohol use. Historical: - Allergies: 19:26 No Known Allergies; lg3 - Home Meds: 19:26 lisinopril Oral [Active]; lg3 - PMHx: 19:26 "Heart attack or a stroke"; Alcoholism; Anxiety; Atrial Fib; Cirrhosis; Depression; lg3 gastric ulcer; Hepatitis; Hypertension; - PSHx: 19:26 cardiac stent; Cholecystectomy; Jaw Sx; Total abdominal hysterectomy; lg3 - Immunization history:: Adult Immunizations up to date, Client reports having NOT received the Covid vaccine. Flu vaccine is up to date. - Social history:: Smoking status: Patient reports the use of cigarette tobacco products, smokes one-half pack cigarettes per day, Patient uses alcohol, on a daily basis. ROS: 20:00 Constitutional: Negative for fever. cp 20:00 Abdomen/GI: Negative for abdominal pain, vomiting, diarrhea, constipation. cp 20:00 Back: Positive for pain at rest, pain with movement, of the right mid back and right low back. 20:00 Cardiovascular: Negative for chest pain. cp 20:00 Respiratory: Negative for cough, shortness of breath, wheezing. 20:00 Eyes: Negative for injury, pain, redness, and discharge. cp 20:00 Neck: Negative for pain with movement, pain at rest, stiffness, bony tenderness. 20:00 Neuro: Negative for altered mental status, loss of consciousness, syncope. 20:00 All other systems are negative. Exam: 20:05 Constitutional: The patient appears in no acute distress, alert, awake, cp non-diaphoretic, non-toxic, well developed, well nourished, smells of alcohol. 20:05 Head/Face: Normocephalic, atraumatic. cp 20:05 Eyes: Periorbital structures: appear normal, Pupils: equal, round, and reactive to light and accomodation, Conjunctiva: normal, no exudate, no injection, Sclera: no appreciated abnormality, Lids and lashes: appear normal, bilaterally. 20:05 ENT: External ear(s): are unremarkable, Nose: is normal, Mouth: Lips: moist, Oral mucosa: pink and intact, moist, Posterior pharynx: Airway: no evidence of obstruction, patent. 20:05 Neck: C-spine: vertebral tenderness, is not appreciated, crepitus, is not appreciated, ROM/movement: pain, that is mild, limited range of motion, is not appreciated, nuchal rigidity, is not appreciated. 20:05 Chest/axilla: Inspection: normal, Palpation: is normal, no crepitus, no tenderness. 20:05 Cardiovascular: Rate: normal, Rhythm: regular, Edema: is not appreciated, JVD: is not appreciated. 20:05 Respiratory: the patient does not display signs of respiratory distress, Respirations: normal, no use of accessory muscles, no retractions, labored breathing, is not present, Breath sounds: are clear throughout, no decreased breath sounds, no stridor, no wheezing. 20:05 Abdomen/GI: Inspection: abdomen appears normal, Bowel sounds: active, all quadrants, Palpation: abdomen is soft and non-tender, in all quadrants. 20:05 Back: pain, of the right mid back and right low back. 20:05 Skin: injury, abrasion(s), moderate sized abrasion noted, of the right mid back, contusion(s), that are superficial, of the right mid back. 20:05 Neuro: Orientation: to person, place, situation, Mentation: able to follow commands, slow to respond, Motor: moves all fours, strength is normal, Sensation: no obvious gross deficits, Gait: is steady. Vital Signs: 19:26 BP 131 / 112; Pulse 86; Resp 18 S; Temp 97.6(O); Pulse Ox 100% on R/A; Weight 48.99 kg lg3 (R); Height 5 ft. 4 in. (R); 20:30 BP 149 / 82; Pulse 89; Resp 17; Pulse Ox 98% ; jj7 21:46 BP 157 / 92; Pulse 90; Resp 16; Pulse Ox 100% ; jj7 22:42 BP 142 / 87; Pulse 87; Resp 16; Pulse Ox 100% ; jj7 19:26 Body Mass Index 18.54 (48.99 kg, 162.56 cm) lg3 MDM: 19:33 Patient medically screened. cp 22:35 Data reviewed: vital signs, nurses notes, lab test result(s), radiologic studies, CT cp scan. 22:35 Consideration of Admission/Observation Escalation of care including cp admission/observation considered. Care significantly affected by the following chronic conditions: Liver Disease, alcoholism. Counseling: I had a detailed discussion with the patient and/or guardian regarding: the historical points, exam findings, and any diagnostic results supporting the discharge/admit diagnosis, lab results, radiology results, to return to the emergency department if symptoms worsen or persist or if there are any questions or concerns that arise at home. Response to treatment: the patient's symptoms have markedly improved after treatment, and as a result, I will discharge patient. Special discussion: pulmonary mass seen on traumagram CT and need for f/u. 09/28 19:51 Order name: Basic Metabolic Panel; Complete Time: 21:35 09/28 21:36 Interpretation: Normal except: NA 130; BUN 4; CRE 0.46; CA 8.1. 09/28 19:51 Order name: CBC with Diff; Complete Time: 21:35 09/28 21:40 Interpretation: Normal except: RBC 3.51; HGB 8.0; HCT 25.3; MCV 72.2; MCH 22.8; MCHC cp 31.6; RDW 29.2; MN% 17.0. 09/28 19:51 Order name: Type And Screen; Complete Time: 21:35 cp 09/28 19:51 Order name: ETOH Level; Complete Time: 21:35 09/28 21:40 Interpretation: Abnormal: ETOH 200. 09/28 19:51 Order name: Urinalysis W/Microscopic; Complete Time: 22:03 09/28 22:04 Interpretation: Reviewed. cp 09/28 19:51 Order name: CT Traumagram (Head C Spine CAP W Con); Complete Time: 21:35 cp 09/28 21:42 Interpretation: Report reviewed. cp 09/28 19:51 Order name: Labs collected and sent; Complete Time: 20:19 cp Administered Medications: 20:13 Drug: NS 0.9% IV 500 ml Route: IV; Rate: 75 ml/hr; Site: right forearm; jj7 22:46 Follow up: IV Status: Completed infusion; IV Intake: 300ml j7 Disposition: 09/29 01:12 Co-signature as Attending Physician, Wale Brady MD I agree with the assessment and kdr plan of care. Disposition Summary: 09/28/22 22:35 Discharge Ordered Location: Home cp Problem: new cp Symptoms: have improved cp Condition: Stable cp Diagnosis - Fall on same level, unspecified cp - Alcohol abuse with intoxication cp - Contusion of right back wall of thorax, initial encounter cp - Right Upper Lobe Pulmonary Mass cp - Anemia, unspecified cp Followup: cp - With: Private Physician - When: 1 - 2 days - Reason: Recheck today's complaints Discharge Instructions: - Discharge Summary Sheet cp - Alcohol Intoxication cp - Anemia cp - Contusion cp - Fall Prevention in the Home, Adult cp - Alcohol Abuse and Nutrition cp - Lung Mass cp - Alcohol Abuse and Dependence Information, Adult cp Forms: - Medication Reconciliation Form cp - Thank You Letter cp - Antibiotic Education cp - Prescription Opioid Use cp Signatures: Dispatcher [employer] EDWale Tucker MD MD kdr Devon Price PA PA cp Marie Armstrong, RN RN lg3 Melba Jordan RN RN jj7
--- NOTE | 2022-09-28 22:36 | ER ---
Nurse's Notes [facility] Name: Lakeisha Kumari Age: 67 yrs Sex: Female : 1955 Arrival Date: 09/28/2022 Time: 19:03 Bed 19 Private MD: Diagnosis: Fall on same level, unspecified;Alcohol abuse with intoxication;Contusion of right back wall of thorax, initial encounter;Right Upper Lobe Pulmonary Mass;Anemia, unspecified Presentation: 09/28 19:25 Chief complaint: Patient states: i fell on my right side on Tuesday and my ribs hurt. lg3 Coronavirus screen: Client denies travel out of the [place] in the last 14 days. At this time, the client does not indicate any symptoms associated with coronavirus-19. Ebola Screen: No symptoms or risks identified at this time. Risk Assessment: Do you want to hurt yourself or someone else? Patient reports no desire to harm self or others. Onset of symptoms was September 25, 2022. 19:25 Method Of Arrival: EMS: [facility] 3 19:25 Acuity: K[facility] 3 lg3 19:29 Initial Sepsis Screen: Does the patient meet any 2 criteria? No. Patient's initial lg3 sepsis screen is negative. Does the patient have a suspected source of infection? No. Patient's initial sepsis screen is negative. Triage Assessment: 19:26 General: Appears in no apparent distress. comfortable, Behavior is calm, cooperative. lg3 Pain: Complains of pain in posterior aspect of right lateral abdomen and anterior aspect of right lateral abdomen. EENT: No deficits noted. No signs and/or symptoms were reported regarding the EENT system. Neuro: No deficits noted. Wild Agitation-Sedation Scale (RASS): 0 - Alert and Calm Level of Consciousness is awake, alert, obeys commands, Oriented to person, place, time, situation. Cardiovascular: No deficits noted. Denies chest pain, shortness of breath. Respiratory: No deficits noted. Airway is patent Respiratory effort is even, unlabored, Respiratory pattern is regular, symmetrical. GI: No deficits noted. No signs and/or symptoms were reported involving the gastrointestinal system. : No deficits noted. No signs and/or symptoms were reported regarding the genitourinary system. Derm: No deficits noted. No signs and/or symptoms reported regarding the dermatologic system. Skin is intact, Skin is dry, Skin is normal, Skin temperature is warm. Musculoskeletal: Reports pain in posterior aspect of right lateral abdomen and anterior aspect of right lateral abdomen. Historical: - Allergies: 19: No Known Allergies; lg3 - Home Meds: 19: lisinopril Oral [Active]; lg3 - PMHx: 19: "Heart attack or a stroke"; Alcoholism; Anxiety; Atrial Fib; Cirrhosis; Depression; lg3 gastric ulcer; Hepatitis; Hypertension; - PSHx: 19: cardiac stent; Cholecystectomy; Jaw Sx; Total abdominal hysterectomy; lg3 - Immunization history:: Adult Immunizations up to date, Client reports having NOT received the Covid vaccine. Flu vaccine is up to date. - Social history:: Smoking status: Patient reports the use of cigarette tobacco products, smokes one-half pack cigarettes per day, Patient uses alcohol, on a daily basis. Screenin:45 [facility] ED Fall Risk Assessment (Adult) History of falling in the last 3 months, jj7 including since admission Yes- single mechanical fall (1 pt) Confusion or Disorientation No (0 pts) Intoxicated or Sedated Yes (3 pts) Impaired Gait No (0 pts) Mobility Assist Device Used No (0 pt) Altered Elimination No (0 pt) Score/Fall Risk Level 3 or more points = High Risk Oriented to surroundings, Maintained a safe environment. Abuse screen: Denies threats or abuse. Nutritional screening: No deficits noted. Tuberculosis screening: No symptoms or risk factors identified. Assessment: 19:45 General: Appears in no apparent distress. uncomfortable, slender, Behavior is calm, jj7 cooperative, appropriate for age, Smells of alcohol. Musculoskeletal: Reports pain in anterior aspect of right lateral abdomen. Vital Signs: 19:26 BP 131 / 112; Pulse 86; Resp 18 S; Temp 97.6(O); Pulse Ox 100% on R/A; Weight 48.99 kg lg3 (R); Height 5 ft. 4 in. (R); 20:30 BP 149 / 82; Pulse 89; Resp 17; Pulse Ox 98% ; jj7 21:46 BP 157 / 92; Pulse 90; Resp 16; Pulse Ox 100% ; jj7 22:42 BP 142 / 87; Pulse 87; Resp 16; Pulse Ox 100% ; jj7 19:26 Body Mass Index 18.54 (48.99 kg, 162.56 cm) lg3 ED Course: 19:05 Patient arrived in ED. rg4 19:11 Devon Price PA is PHCP. cp 19:11 Wale Brady MD is Attending Physician. cp 19:26 Triage completed. lg3 19:26 Arm band placed on left wrist. lg3 19:40 Melba Jordan, RN is Primary Nurse. jj7 19:45 Patient has correct armband on for positive identification. Bed in low position. Call jj7 light in reach. Side rails up X 1. C-COLLAR APPLIED. 19:54 Radiology exam delayed due to lab results not completed at this time. (BUN/Creatinine) jg10 IV insertion attempt and/or patient not having appropriate IV at this time. 20:14 Type And Screen Sent. jj7 20:14 CBC with Diff Sent. jj7 20:14 Basic Metabolic Panel Sent. jj7 20:19 ETOH Level Sent. jj7 21:06 CT Traumagram (Head C Spine CAP W Con) In Process Unspecified. EDMS 21:44 Urinalysis W/Microscopic Sent. jj7 22:42 No provider procedures requiring assistance completed. IV discontinued, intact, jj7 bleeding controlled, No redness/swelling at site. Pressure dressing applied. Administered Medications: 20:13 Drug: NS 0.9% IV 500 ml Route: IV; Rate: 75 ml/hr; Site: right forearm; jj7 22:46 Follow up: IV Status: Completed infusion; IV Intake: 300ml jj7 Medication: 19:45 VIS not applicable for this client. jj7 Intake: 22:46 IV: 300ml; Total: 300ml. jj7 Outcome: 22:35 Discharge ordered by . cp 22:43 Discharged to home ambulatory. jj7 22:43 Condition: good 22:43 Discharge instructions given to patient, Instructed on discharge instructions, follow up and referral plans. Demonstrated understanding of instructions, follow-up care. 22:48 Patient left the ED. jj7 Signatures: Dispatcher [employer] EDMS Devon Price PA PA cp Garcia, Rubi rg4 Marie Armstrong RN RN lg3 Melba Jordan RN RN jj7 Theresa Khanna j0
== END 2022-09-28 22:48 | disposition home or self-care (01) ==
LOC: ER 19:03
DX: S20.221A Contusion of right back wall of thorax, initial encounter (principal); F10.229 Alcohol dependence with intoxication, unspecified; D64.9 Anemia, unspecified; R91.8 Other nonspecific abnormal finding of lung field; W18.30XA Fall on same level, unspecified, initial encounter; F17.210 Nicotine dependence, cigarettes, uncomplicated; I10 Essential (primary) hypertension; Z95.818 Presence of other cardiac implants and grafts
CPT/HCPCS: 96361; 85025; 81001; 80048; 36415; 86900; 86850; 86901; 70450; 72125; 71260; 74177; 96360; 99284; Q9967; J7030; G0480

== ENCOUNTER 2023-02-03 00:43 | Emergency (ER) | payer OTHER ==
[2023-02-03] MEDS ORDERED: ONDANSETRON 4 MG (ODT) TAB ONE (01:22)
[2023-02-03] MEDS ORDERED: HYDROCODONE/APAP 10/325 TAB ONE (01:23)
--- OUTSIDE RECORDS SUMMARY | 2023-02-03 02:02 | XMS REPORT | Continuity of Care Document ---
:1955 Author Organization [facility] t Address [address] [facility] [address] [place] [address] Care Team Providers Name Role Phone Rick Evie Primary Care Physician GASTON JOSEPH Attending Clinician Unavailable HARRIET IRENE Attending Clinician Unavailable PIPO GALAN Attending Clinician Unavailable Pipo Chand Attending Clinician Doctor Unassigned, [place] Attending Clinician Unavailable Juan Ramon Gutiérrez MD Attending Clinician JUAN RAMON GUTIÉRREZ Attending Clinician Unavailable Nurse, Lei Mustafa Attending Clinician Unavailable LUIS ALBERTO ADAMS' Attending Clinician Unavailable Marlee Aaron NP Attending Clinician Keith CREWS, Americo Shannon Attending Clinician Unavailable Shayy BURGOS, Dameon Mendoza Attending Clinician Cee BURGOS, James Mcmahon Attending Clinician Myah Barlow MD Attending Clinician MYAH BARLOW Attending Clinician Unavailable Gricelda BURGOS, Veena Ralph Attending Clinician [phone] MARLEE AARON Attending Clinician Unavailable Gaston Joseph MD Attending Clinician Hermann Maria MD Attending Clinician Luis Alberto Adams MD' Attending Clinician [phone] Amarilys Oneal Attending Clinician Anat Tovar MD Attending Clinician GASTON JOSEPH Admitting Clinician Unavailable HARRIET IRENE Admitting Clinician Unavailable James Mills MD Admitting Clinician JAMES MILLS Admitting Clinician Unavailable DOTTY GREGG Admitting Clinician Unavailable Payers Payer Name Policy Type Policy Number Effective Date Expiration Date S zohaib [facility] SECURE [employer]ORIZON [id number] 2019 PFFS 00:00:00 [facility] DUAL [id number] 2021 COMP HMO D SNP 00:00:00 [employer] [id number] 2019 PLUS 00:00:00 [place] [id number] 2022 00:00:00 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, hematoma, 2-03 ity of initial initial 00:00: [place] encounter encounter 00 [facility] NSTEMI NSTEMI Disease Recurre [facility]ce 3[facility]26 [facility] elevated elevated 00:00: Medica l myocardial myocardial 00 Ce nter infarction infarction ) ) Other Other Disease Recurre [facility] cirrhosis cirrhosis nce 12-24 [facility] of liver of liver 00:00: Medica l 00 Center Hyponatrem Hyponatrem Disease Active [facility] ia 12-24 [facility] 00:00: Medical 00 Center Hypomagnes Hypomagnes Disease Active [facility] emia emia 12-24 [facility] 00:[facility]: [facility] Hypokalemi Hypokalemi Disease Active [facility] a a 12-24 [facility] 00:[facility]: [facility] Center Perforatio Perforatio Disease Recurre [facility] n bowel n bowel nce 12-23 [facility] Left hand Left hand Disease Active Uni vers pain pain 6-22 ity of 00:00: [place] 00 Medical Branch normal normal Disease Recurre Univers [...] tissue us tissue 00 Term Medi tessy Assembler Final Branch Utility Headache Headache Disease Active Overview: Un chalino 8-06 ICD10 ity of 00:00: Diagnosis Term Medical Assembler Final Branch Utility Anxiety Anxiety Disease Recurre Overview: Uni vers state state nce 9-17 Formattin ity of 00:00: g of this note Medical might be Branch different from the original. 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 ICD10 Diagnosis Term Assembler Final Utility Hypertensi Hypertensi Disease Recurre Univers on on nce ity of [facility] Allergies, Adverse Reactions, Alerts Allergy Allergy Status Severity Reaction(s) Onset Inactive Treating Comm ents Source Name Type Date Date Clinician NO KNOWN Allergy Active [facility] ALLERGIE S NO KNOWN Drug Active Univers ALLERGIE Class ity of S [facility] Social History Social Habit Start Date Stop Date Quantity Comments Source History of tobacco Cigarette Smoker University of use [facility] History SDOH [facility] Alcohol Binge Medical [address] [facility] Exposure to 2022-05-11 2022-05-[address] [facility] SARS-CoV-2 (event) 00:00:00 08:08:00 [facility] Cigarettes smoked 2022-03-17 2022-03-17 Univers ity of current (pack per 00:00:00 00:00:00 ) - Reported Branch Cigarette 2022-03-17 2022-03-17 University of pack-years 00:00:00 00:00:00 [facility] Tobacco Comment 2022-03-17 2022-03-17 No intent on Univers ity of 00:00:00 00:00:00 quitting [facility] Alcohol intake 2021-05-27 2021-05-27 [facility] (finding) Alcohol Comment 2019-12-25 2019-12-25 quit a year ago [facility] 00:[facility]00 [facility] Tobacco use and 2019-12-25 2019-12-[address] Dipika kes exposure 00:00:00 00:00:00 tobacco non-user Medical Center History [facility] 2019-12-25 2019-12-[address] [facility] Alcohol Frequency 00:00:00 00:00:00 Medical Center History [facility] 2019-12-25 2019-12-[address] [facility] Alcohol Std Drinks 00:00:00 00:00:00 Medica l Center Sex Assigned At [address] [facility] kes 00:00:00 00:00:00 Medical Center Smoking Status Start Date Stop Date Source Smokes tobacco daily 2019-12-25 00:00:00 [facility] Medications Ordered Filled Start Stop Current Ordering Indication Dosage Frequency Signature Comments Components Source Medication Medication Date Date Medication? Clinician (SIG) Name Name sodium 2021-06- No [id number] 30mg Uni vers hyaluronate 2-16 - 9109 ity of (viscosup) 15:15: 15:07 [place] (ORTHOVISC) 00 :00 Medical injection Branch 30 mg sodium 2021-06- No [id number] 30mg 30 mg, U nivers hyaluronate 2-16 - 9109 Intra-vesta i ty of (viscosup) 15:15: 15:07 Owen manriquez s (ORTHOVISC) 00 :00 ONCE, 1 Medic al injection dose, On Branch 30 mg Tue05/21/22 at 0915, Routine sodium 2021-06 No [id number] 30mg Uni vers hyaluronate 07-22 9109 ity of (viscosup) 15:15: 15:07 [place] (ORTHOVISC) 00 :00 Medical injection Branch 30 mg sodium 2021-06- No [id number] 30mg 30 mg, U nivers hyaluronate 2-16 - 9109 Intra-vesta i ty of (viscosup) 15:15: [...] 2021-0 No 40 8-16 00:00: 00 &lt 2021-0 No 40 8-16 00:00: 00 &lt 2021-0 [...] 6.25mg Take [address] (Coreg) -27 05- tablet [facility] 6.25 MG 00:00: 23:59 [...] 6.25mg Take [address] (Coreg) -27 05- tablet [facility] 6.25 MG 00:00: 23:59 [...] [facility] (NORVASC) 2-22 - tablet (10 Vkias es 10 MG 00:00: 23:59 mg total) Medica l tablet 00 :00 by mouth Center daily. carvediloL 2020-06- 6.25mg Take [address] (Coreg) -05-27 tablet [facility] 6.25 MG 00:00: 23:59 (6.25 mg Medic al tablet 00 :00 total) by Center mouth 2 (two) times daily with breakfast and dinner. hydroCHLORO 2020-06 Yes 12.5mg QD Take 12.[address] thiazide 2-21 mg by [facility] (MICROZIDE) 13:44: mouth Medic al 12.5 mg 11 daily. C[place] capsule busPIRone 2020-06 Yes 10mg Q.[id number] Take [address] (BUSPAR) 10 2-21 [id number] by mouth 3 [facility] MG tablet 13:44: 3D (three) Medic al 11 times Center daily. loratadine 2020-06 Yes 10mg QD Take [address] (CLARITIN) 2-21 by mouth [facility] 10 mg 13:44: daily. Medical tablet 11 [place] hydroCHLORO 2020-06 Yes 12.5mg QD Take 12.[address] thiazide 2-21 mg by [facility] (MICROZIDE) 13:44: mouth Medic al 12.5 mg 11 daily. [place] capsule busPIRone 2020-06 Yes 10mg Q.[id number] Take [address] (BUSPAR) 10 2-21 [id number] by mouth 3 [facility] MG tablet 13:44: 3D (three) Medic al 11 times Center daily. loratadine 2020-06 Yes 10mg QD Take [address] (CLARITIN) 2-21 by mouth [facility] 10 mg 13:44: daily. Medical tablet 11 [place] hydroCHLORO 2020-06 Yes 12.5mg QD Take 12.[address] thiazide 2-21 mg by [facility] (MICROZIDE) 13:44: mouth Medic al 12.5 mg 11 daily. [place] capsule busPIRone 2020-06 Yes 10mg Q.[id number] Take [address] (BUSPAR) 10 2-21 [id number] by mouth 3 [facility] MG tablet 13:44: 3D (three) Medic al 11 times Center daily. loratadine 2020-06 Yes 10mg QD Take [address] (CLARITIN) 2-21 by mouth [facility] 10 mg 13:44: daily. Medical tablet 11 [place] hydroCHLORO 2020-06 Yes 12.5mg QD Take 12.[address] thiazide 2-21 mg by [facility] (MICROZIDE) 13:44: mouth Medic al 12.5 mg 11 daily. [place] capsule busPIRone 2020-06 Yes 10mg Q.[id number] Take [address] (BUSPAR) 10 2-21 [id number] by mouth 3 [facility] MG tablet 13:44: 3D (three) Medic al 11 times Center daily. loratadine 2020-06 Yes 10mg QD Take [address] (CLARITIN) 2-21 by mouth [facility] 10 mg 13:44: daily. Medical tablet 11 [place] hydroCHLORO 2020-06 Yes 12.5mg QD Take 12.[address] thiazide 2-21 mg by [facility]ukes (MICROZIDE) 13:44: mouth Medic al 12.5 mg 11 daily. [place] capsule busPIRone 2020-06 Yes 10mg Q.[id number] Take [address] (BUSPAR) 10 2-21 [id number] by mouth 3 [facility] MG tablet 13:44: 3D (three) Medic al 11 times Center daily. loratadine 2020-06 Yes 10mg QD Take [address] (CLARITIN) 2-21 by mouth [facility] 10 mg 13:44: daily. Medical tablet 11 [place] hydroCHLORO 2020-06 Yes 12.5mg QD Take 12.[address] thiazide 2-21 mg by [facility]ukes (MICROZIDE) 13:44: mouth Medic al 12.5 mg 11 daily. [place] capsule busPIRone 2020-06 Yes 10mg Q.[id number] Take [address] (BUSPAR) 10 2-21 [id number] by mouth 3 [facility] MG tablet 13:44: 3D (three) Medic al 11 times Center daily. loratadine 2020-06 Yes 10mg QD Take [address] (CLARITIN) 2-21 by mouth [facility] 10 mg 13:44: daily. Medical tablet 11 [place] hydroCHLORO 2020-06 Yes 12.5mg QD Take 12.[address] thiazide 2-21 mg by [facility]ukes (MICROZIDE) 13:44: mouth Medic al 12.5 mg 11 daily. [place] capsule busPIRone 2020-06 Yes 10mg Q.[id number] Take [address] (BUSPAR) 10 2-21 [id number] by mouth 3 [facility] MG tablet 13:44: 3D (three) Medic al 11 times Center daily. loratadine 2020-06 Yes 10mg QD Take [address] (CLARITIN) 2-21 by mouth [facility] 10 mg 13:44: daily. Medical tablet 11 [place] hydroCHLORO 2020-06 Yes 12.5mg 12.5 mg, Univers [...] No 100mg 100 mg, Univ ers (VITAMIN 2- 12-08 Oral, ity of B1) tablet 15:00: 14:39 [place] 100 [place] 00 :16 First dose Medical on Tue Branch 05/13/21 at 0900, Until Discontinu ed, Routine loratadine 2020-06 Yes 10mg Take 10 mg U nivers 10 mg 2-08 by mouth ity of tablet 13:22: daily. [address] loratadine 2020-06 Yes 10mg Take 10 mg U nivers 10 mg 2-08 by mouth ity of tablet 13:22: daily. [address] loratadine 2020-06 Yes 10mg Take 10 mg U nivers 10 mg 2-08 by mouth ity of tablet 13:22: daily. [address] loratadine 2020-06 Yes 10mg Take 10 mg U nivers 10 mg 2-08 by mouth ity of tablet 13:22: daily. [address] loratadine 2020-06 Yes 10mg Take 10 mg U nivers 10 mg 2-08 by mouth ity of tablet 13:22: daily. [address] loratadine 2020-06 Yes 10mg Take 10 mg U nivers 10 mg 2-08 by mouth ity of tablet 13:22: daily. [address] loratadine 2020-06 Yes 10mg Take 10 mg U nivers 10 mg 2-08 by mouth ity of tablet 13:22: daily. [address] loratadine 2020-06 Yes 10mg Take 10 mg U nivers 10 mg 2-08 by mouth ity of tablet 13:22: daily. [address] loratadine 2020-06 Yes 10mg Take 10 mg U nivers 10 mg 2-08 by mouth ity of tablet 13:22: daily. [address] loratadine 2020-06 Yes 10mg Take 10 mg U nivers 10 mg 2-08 by mouth ity of tablet 13:22: daily. [address] loratadine 2020-06 Yes 10mg Take 10 mg U nivers 10 mg 2-08 by mouth ity of tablet 13:22: daily. [address] loratadine 2020-06 Yes 10mg Take 10 mg U nivers 10 mg 2-08 by mouth ity of tablet 13:22: daily. [address] magnesium 2020-06- No 4g 4 g, IV Univ ers sulfate in 07-14 Piggyback, it y of water 4 13:08: 13:47 ONCE, 1 [place] gram/50 mL 00 :00 dose, On Medic al (8 %) IV [facility] Branch Piggyback 4 05/13/21 at g 0715, Routine lisinopril 2020-06- No 30mg Take 30 mg Univers 30 mg 07-14 by mouth ity of tablet 10:15: 00:00 daily. [place] 56 :00 [facility] ibuprofen 2020-06- No 100mg Take 100 Un chalino (ADVIL) 100 07-14 mg by ity of mg tablet 10:15: 00:00 mouth [place] 56 :00 every 4 Medical (four) Branch hours as needed for Fever. acetaminoph 2020-06- No [id number] 650mg Take 2 Univers en 325 mg 07-14 tablets by ity of tablet 00:00: 05:59 mouth [place] 00 :00 every 6 Medical (six) Branch hours as needed for Pain (scale 1-3), Pain (scale 4-6) or Temp > 38.5 C. acetaminoph 2020-06- No [id number] 650mg Take 2 Univers en 325 mg 07-14 tablets by ity of tablet 00:00: 05:59 mouth [place] 00 :00 every 6 Medical (six) Branch hours as needed for Pain (scale 1-3), Pain (scale 4-6) or Temp > 38.5 C. acetaminoph 2020-06- No [id number] 650mg Take 2 Univers en 325 mg 07-14 tablets by ity of tablet 00:00: 05:59 mouth [place] 00 :00 every 6 Medical (six) Branch hours as needed for Pain (scale 1-3), Pain (scale 4-6) or Temp > 38.5 C. acetaminoph 2020-06- No [id number] 650mg Take 2 Univers en 325 mg 07-14 tablets by ity of tablet 00:00: 05:59 mouth [place] 00 :00 every 6 Medical (six) Branch hours as needed for Pain (scale 1-3), Pain (scale 4-6) or Temp > 38.5 C. acetaminoph 2020-06- No [id number] 650mg Take 2 Univers en 325 mg 07-14 tablets by ity of tablet 00:00: 05:59 mouth [place] 00 :00 every 6 Medical (six) Branch hours as needed for Pain (scale 1-3), Pain (scale 4-6) or Temp > 38.5 C. acetaminoph 2020-06- No [id number] 650mg Take 2 Univers en 325 mg 07-14 tablets by ity of tablet 00:00: 05:59 mouth [place] 00 :00 every 6 Medical (six) Branch hours as needed for Pain (scale 1-3), Pain (scale 4-6) or Temp > 38.5 C. acetaminoph 2020-06- No [id number] 650mg Take 2 Univers en 325 mg 07-14 tablets by ity of tablet 00:00: 05:59 mouth [place] 00 :00 every 6 Medical (six) Branch hours as needed for Pain (scale 1-3), Pain (scale 4-6) or Temp > 38.5 C. acetaminoph 2020-06- No [id number] 650mg Take 2 Univers en 325 mg 07-14 tablets by ity of tablet 00:00: 05:59 mouth [place] 00 :00 every 6 Medical (six) Branch hours as needed for Pain (scale 1-3), Pain (scale 4-6) or Temp > 38.5 C. acetaminoph 2020-06- No [id number] 650mg Take 2 Univers en 325 mg 07-14 tablets by ity of tablet 00:00: 05:59 mouth [place] 00 :00 every 6 Medical (six) Branch hours as needed for Pain (scale 1-3), Pain (scale 4-6) or Temp > 38.5 C. acetaminoph 2020-06- No [id number] 650mg Take 2 Univers en 325 mg 07-14 tablets by ity of tablet 00:00: 05:59 mouth [place] 00 :00 every 6 Medical (six) Branch hours as needed for Pain (scale 1-3), Pain (scale 4-6) or Temp > 38.5 C. carvediloL 2020-06 Yes 6.25mg 6.25 mg, U lorena (COREG) 07-13 Oral, BID ity of tablet 6.25 23:00: MEALS, [place] mg 00 First dose Medical on Tue05/12/21 at 1700, Until Discontinu ed, Routine thiamine 2020-06 Yes IV Univers (VITAMIN 2- Infusion, ity of B1) 100 mg, 15:00: at 42 [place] foLIC acid 00 mL/hr, Medical (FOLATE) 1 DAILY, Branch mg in D5W First dose 0.45% NaCl (after (1/2NS) IV last Solution reorder) on Tue05/12/21 at 0900, Until Discontinu ed, 1,000 mL thiamine 2020-06- No IV Univers (VITAMIN 2-07 12- Infusion, ity o f B1) 100 mg, 15:00: 17:12 at 42 [place] foLIC acid 00 :06 mL/hr, Medical (FOLATE) 1 DAILY, Branch mg in D5W First dose 0.45% NaCl (after (1/2NS) IV last Solution reorder) on Tue05/12/21 at 0900, Until Discontinu ed, 1,000 mL magnesium 2020-06- No 2g 2 g, IV Univ ers sulfate in 07-12- Piggyback, it y of water 2 16:30: 17:24 ONCE, 1 [place] gram/50 mL 00 :00 dose, On Medic al (4 %) Mon Branch infusion 2 05/11/21 at g 1030, Routine thiamine 2020-06- No IV Univers (VITAMIN 07-12 Infusion, ity o f B1) 100 mg, 15:00: 16:01 at 100 [place] foLIC acid 00 :03 mL/hr, Medical (FOLATE) 1 DAILY, Branch mg in D5W First dose 0.45% NaCl (after (1/2NS) IV last Solution modificati on) on Tue05/11/21 at 0900, Until Discontinu ed, 1,000 mL iodixanoL 2020-06 Yes PRN, Univers (VISIPAQUE 07-12 Starting ity o f 270-150 mL) 01:00: [place] injection 00 05/10/21 at [facility] 1900, Branch Until Discontinu ed, Routine, Intra-op lidocaine 2020-06 Yes PRN, Univers 1% (PF) 206 Starting ity of (XYLOCAINE) 00:54: [place] Sun [place] injection 05/10/21 at [facility] 1854, Branch Until Discontinu ed, Routine, Intra-op heparin 2020-06 Yes PRN, Univers 10,000 2-05 Starting ity of units in NS 23:24: on Sun [place] 1000 mL for 05/10/21 at [facility] 1724, Branch Intra-op thiamine 2020-06- No IV Univers (VITAMIN 205-11 Infusion, ity o f B1) 100 mg, 15:00: 12:29 at 50 [place] foLIC acid 00 :55 mL/hr, Medical (FOLATE) 1 DAILY, Branch mg in D5W First dose 0.45% NaCl on Sun (1/2NS) IV 05/10/21 at Solution 0900, Until Discontinu ed, 1,000 mL HYDROcodone 2021-1 Yes 1{tbl} 1 tablet, Univers -acetaminop 2-05 Oral, ity of hen (NORCO 14:30: Q4HPRN, [place] 5) 5-325 mg 00 Starting Medi tessy tablet 1 on [place] Branch tablet 05/10/21 at 0830, Until Discontinu [...] First dose [place] mg 00 on [facility] 05/09/21 at [place] 2100, Until Discontinu ed, Routine atorvastati 2020-06 Yes 40mg 40 mg, Univ ers n (LIPITOR) 2-05 Oral, QHS, it y of tablet 40 03:00: [place] dose [place] mg 00 on [facility] 05/09/21 at [place] 2100, Until Discontinu ed, Routine nicotine 2020-06 Yes 1{patch 1 Patch, Un chalino (NICODERM) 2-04 } Topical, ity o f 21 mg/24 hr 07:30: Administer [place] patch 1 00 over 24 Medical Patch Hours, [place] Q24H, First dose on [facility] 05/09/21 at 0130, Until Discontinu ed, Routine nicotine 2020-06 Yes 1{patch 1 Patch, Un [facility] (NICODERM) 2-04 } Topical, ity o f 21 mg/24 hr 07:30: Administer [place] patch 1 00 over 24 Medical Patch Hours, [place] Q24H, First dose on [facility] 05/09/21 at 0130, Until Discontinu ed, Routine KCL 20 2020-06- No 40meq 40 mEq, Univer s mEq/15 mL 2-04 12-04 Oral, Q2H, ity of solution 40 06:00: 07:47 2 doses, [place] mEq 00 :00 First dose Medical on Sat Branch 05/09/21 at 0000, Last dose on 05/09/21 at 0200, Routine pantoprazol 2020-06 Yes 40mg 40 mg, Univ ers e 2-04 Slow IV ity of (PROTONIX) 03:30: Push, [place] injection 00 Q12H, Medical 40 mg First dose Branch on 05/08/21 at 2130, Until Discontinu ed pantoprazol 2020-06 Yes 40mg 40 mg, Univ ers e 2-04 Slow IV ity of (PROTONIX) 03:30: Push, [place] injection 00 Q12H, Medical 40 mg First dose Branch on 05/08/21 at 2130, Until Discontinu ed HYDROcodone 2020-06- No 1{tbl} 1 tablet, Univers -acetaminop 2-04 12-05 Oral, ity of hen (NORCO 03:16: [...] al mg on Fri Branch 05/08/21 at 2048, Until Discontinu ed, Routine, Pain (scale 1-3) acetaminoph 2020-06 Yes 650mg 650 mg, Un chalino en 2-04 Oral, ity of (TYLENOL) 02:48: Q6HPRN, [place] tablet 650 06 Starting Medic al mg on Fri Branch 05/08/21 at 2048, Until Discontinu ed, Routine, Pain (scale 1-3) lisinopril 2020-06 Yes 30mg Take 30 mg U nivers 30 mg 2-03 by mouth ity of tablet 21:15: daily. [address] loratadine 2020-06 Yes 10mg Take 10 mg U nivers 10 mg 2-03 by mouth ity of tablet 21:15: daily. [address] ibuprofen 2020-06 Yes 100mg Take 100 Uni vers (ADVIL) 100 2-03 mg by ity of mg tablet 21:15: mouth [place] 20 every 4 Medical (four) Branch hours as [...] 500 mg 1-19 tablet 00:00: 00 lisinopril 2020-06 No 1mg 40 mg 1-17 tablet 00:00: 00 lisinopril 2020-06 No 1mg 40 mg 1-17 tablet 00:00: 00 lisinopril 2020-06 No 1mg 40 mg 1-17 tablet 00:00: 00 sertraline 2020-06 No 1mg 100 mg 0-11 tablet 00:00: 00 lisinopril 2020-06 No 1mg 40 mg 0-11 tablet 00:00: 00 sertraline 2020- No 1mg 100 mg 0-11 tablet 00:00: 00 lisinopril 2020- No 1mg 40 mg 0-11 tablet 00:00: 00 sertraline 2020-06 No 1mg 100 mg 0-11 tablet 00:00: 00 lisinopril 2020-06 No 1mg 40 mg 0-11 tablet 00:00: 00 ProAir HFA 2020-0 No 12mcg/a 90 - ctuatio mcg/actuati 00:00: n on aerosol 00 inhaler Advair 2020-0 No 1mcg/do Diskus 250 9-02 se mcg-50 00:00: mcg/dose 00 powder for inhalation sertraline 0 No 1mg 100 mg 9-02 tablet 00:00: 00 Dose 2020-0 No Unknown 02-05 00:00: 00 Advair 2020-0 No 1mcg/do Diskus 250 9-02 se mcg-50 00:00: mcg/dose 00 powder for inhalation sertraline 0 No 1mg 100 mg 9- tablet 00:00: 00 Dose 2020-0 No Unknown 02-05 00:00: 00 Advair 0 No 1mcg/do Diskus 250 9-02 se mcg-50 00:00: mcg/dose 00 powder for inhalation sertraline 0 No 1mg 100 mg 9- tablet 00:00: 00 atorvastati 2020-0 Yes 40mg QD Take [address] [facility] [facility] (LIPITOR) 7-02 tablet (40 Dipika kes 40 MG 00:00: mg total) Medical tablet 00 by mouth Center nightly. carvediloL 0 Yes 12.5mg Q.5D Take [address] (COREG) 7-02 tablet [facility] 12.5 MG 00:00: (12.5 mg Medica l tablet 00 total) by Center mouth 2 (two) times daily. clopidogreL 0 Yes 75mg QD Take [address] (PLAVIX) 75 7-02 tablet (75 Dipika kes mg tablet 00:00: mg total) Med ical 00 by mouth Center daily. lisinopriL 2020-0 Yes 40mg QD Take 1 [facility] (PRINIVIL,Z 7-02 tablet (40 Dipika kes ESTRIL) 40 00:00: mg total) Me dical MG tablet 00 by mouth Center daily. atorvastati 2020-0 Yes 40mg QD Take 1 [...] tablet 00 by mouth Center daily. atorvastati 2020-0 Yes 40mg QD Take [address] [facility] (LIPITOR) 7-02 tablet (40 Dipika kes 40 MG 00:00: mg total) Medical tablet 00 by mouth Center nightly. clopidogreL 2020-0 Yes 75mg QD Take [address] (PLAVIX) 75 7-02 tablet (75 Dipika kes mg tablet 00:00: mg total) Med ical 00 by mouth Center daily. lisinopriL 2020-0 Yes 40mg QD Take 1 [facility] (PRINIVIL,Z 7-02 tablet (40 Dipika kes ESTRIL) 40 00:00: mg total) Me dical MG tablet 00 by mouth Center daily. carvediloL 0 Yes 12.5mg Take 12.5 Univers 12.5 mg 7-02 mg by ity of tablet 00:00: mouth. [address] atorvastati 0 Yes 40mg Take 40 mg Univers n 40 mg 7-02 by mouth. ity of tablet 00:00: [address] lisinopriL 2020-0 Yes 40mg Take 40 mg U nivers 40 mg 7-02 by mouth. ity of tablet 00:00: [place] [facility] carvediloL 2020-0 Yes 12.5mg Take 12.5 Univers 12.5 mg 7-02 mg by ity of tablet 00:00: mouth. [place] [facility] atorvastati 2020-0 Yes 40mg Take 40 mg Univers n 40 mg 7-02 by mouth. ity of tablet 00:00: [address] lisinopriL 2020-0 Yes 40mg Take 40 mg U nivers 40 mg 7-02 by mouth. ity of tablet 00:00: [address] carvediloL 2020-0 Yes 12.5mg Take 12.5 Univers 12.5 mg 7-02 mg by ity of tablet 00:00: mouth. [address] atorvastati 2020-0 Yes 40mg Take 40 mg Univers n 40 mg 7-02 by mouth. ity of tablet 00:00: [address] lisinopriL 2021-0 Yes 40mg Take 40 mg U nivers 40 mg 7-02 by mouth. ity of tablet 00:00: [place] [facility] carvediloL 2020-0 Yes 12.5mg Take 12.5 Univers 12.5 mg 7-02 mg by ity of tablet 00:00: mouth. [place] [facility] atorvastati 2020-0 Yes 40mg Take 40 mg Univers n 40 mg 7-02 by mouth. ity of tablet 00:00: [place] [facility] Branch lisinopriL 2020-0 Yes 40mg Take 40 mg U nivers 40 mg 7-02 by mouth. ity of tablet 00:00: [place] [facility] carvediloL 2020-0 Yes 12.5mg Take 12.5 Univers 12.5 mg 7-02 mg by ity of tablet 00:00: mouth. [address] atorvastati 0 Yes 40mg Take 40 mg Univers n 40 mg 7-02 by mouth. ity of tablet 00:00: [place] [address] Medical Branch lisinopriL 2020-0 Yes 40mg Take 40 mg U nivers 40 mg 7-02 by mouth. ity of tablet 00:00: [place] [facility] carvediloL 2020-0 Yes 12.5mg Take 12.5 Univers 12.5 mg 7-02 mg by ity of tablet 00:00: mouth. [address] atorvastati 0 Yes 40mg Take 40 mg Univers n 40 mg 7-02 by mouth. ity of tablet 00:00: [place] [facility] lisinopriL 2020-0 Yes 40mg Take 40 mg U nivers 40 mg 7-02 by mouth. ity of tablet 00:00: [place] [address] Medical Branch carvediloL 2020-0 Yes 12.5mg Take 12.5 Univers 12.5 mg 7-02 mg by ity of tablet 00:00: mouth. [address] atorvastati 2020-0 Yes 40mg Take 40 mg Univers n 40 mg 7-02 by mouth. ity of tablet 00:00: [place] [address] Medical Branch lisinopriL 2020-0 Yes 40mg Take 40 mg U nivers 40 mg 7-02 by mouth. ity of tablet 00:00: [place] [address] Medical Branch carvediloL 2020-0 Yes 12.5mg Take 12.5 Univers 12.5 mg 7-02 mg by ity of tablet 00:00: mouth. [place] [facility] atorvastati 2020-0 Yes 40mg Take 40 mg Univers n 40 mg 7-02 by mouth. ity of tablet 00:00: [place] [facility] lisinopriL 2020-0 Yes 40mg Take 40 mg U nivers 40 mg 7-02 by mouth. ity of tablet 00:00: [place] [facility] carvediloL 2020-0 Yes 12.5mg Take 12.5 [facility] 12.5 mg 7-02 mg by ity of tablet 00:00: mouth. [address] Branch atorvastati 0 Yes 40mg Take 40 mg Univers n 40 mg 7-02 by mouth. ity of tablet 00:00: [place] [facility] lisinopriL 0 Yes 40mg Take 40 mg U nivers 40 mg 7-02 by mouth. ity of tablet 00:00: [place] [address] Medical Branch carvediloL 2020-0 Yes 12.5mg Take 12.5 Univers 12.5 mg 7-02 mg by ity of tablet 00:00: mouth. [address] atorvastati 0 Yes 40mg Take 40 mg Univers n 40 mg 7-02 by mouth. ity of tablet 00:00: [address] Branch lisinopriL 2020-0 Yes 40mg Take 40 mg U nivers 40 mg 7-02 by mouth. ity of tablet 00:00: [place] [address] Medical Branch carvediloL 2020-0 Yes 12.5mg Take 12.5 Univers 12.5 mg 7-02 mg by ity of tablet 00:00: mouth. [address] atorvastati 0 Yes 40mg Take 40 mg Univers n 40 mg 7-02 by mouth. ity of tablet 00:00: [address] Branch lisinopriL 2020-0 Yes 40mg Take 40 mg U nivers 40 mg 7-02 by mouth. ity of tablet 00:00: [place] [address] Medical Branch carvediloL 2020-0 Yes 12.5mg Take 12.5 Univers 12.5 mg 7-02 mg by ity of tablet 00:00: mouth. [address] atorvastati 2020-0 Yes 40mg Take 40 mg Univers n 40 mg 7-02 by mouth. ity of tablet 00:00: [address] lisinopriL 2020-0 Yes 40mg Take 40 mg U nivers 40 mg 7-02 by mouth. ity of tablet 00:00: [address] clopidogreL 2020-0 Yes 75mg Take 75 mg Univers 75 mg 7-02 by mouth. ity of tablet 00:00: [address] carvediloL 2020-0 Yes 12.5mg Take 12.5 Univers 12.5 mg 7-02 mg by ity of tablet 00:00: mouth. [address] atorvastati 2020-0 Yes 40mg Take 40 mg Univers n 40 mg 7-02 by mouth. ity of tablet 00:00: [address] lisinopriL 2020-0 Yes 40mg Take 40 mg U nivers 40 mg 7- by mouth. ity of tablet 00:00: [address] carvediloL 2020-0 1- No 12.5mg Q.5D Take [address] [facility] [address] [facility] (COREG) 12-05 12- tablet [facility]5 [facility] 00:[facility]: 00:00 (12.5 mg Medic al tablet 00 :00 total) by Center mouth 2 (two) times daily. clopidogreL 2020-0 2020- No 75mg Take 75 mg Univers 75 mg - 12-08 by mouth. ity of tablet 00:00: 00:00 [place] 00 [facility] lisinopril 2020-0 No 1mg 40 mg 5-04 tablet 00:00: 00 carvedilol 1-0 No 1mg 25 mg 5-04 tablet 00:00: 00 atorvastati 1-0 No 1mg n 40 mg 5-04 tablet 00:00: 00 lorazepam 1-0 No 1mg 0.5 mg 5-04 tablet 00:00: 00 clopidogrel 1-0 No 1mg 75 mg 5-04 tablet 00:00: 00 pantoprazol 1-0 No 1mg e 40 mg 5-04 tablet,lucy 00:00: yed release 00 lisinopril 1-0 No 1mg 40 mg 5-04 tablet 00:00: 00 carvedilol 1-0 No 1mg 25 mg 5-04 tablet 00:00: [...] tablet,lucy 00:00: yed release 00 aspirin 81 2020-0 Yes 81mg QD Take 1 [facility] che[facility] tablet (81 [place] tablet 00:00: mg total) Medica l 00 by mouth Center daily. pantoprazol 1-0 Yes 40mg Take [address] [facility] e 4-02 tablet (40 [facility] (PROTONIX) 00:00: mg total) Me dical 40 MG 00 by mouth Center tablet every morning before breakfast. aspirin 81 2020-0 Yes 81mg QD Take 1 [facility] S t MG chewable 4-02 tablet (81 [place] tablet 00:00: mg total) Medica l [...] tablet every morning before breakfast. aspirin 81 Yes 81mg Take 81 mg U nivers mg chewable 09-05 by mouth. ity of tablet 00:00: [place] [address] Medical Branch aspirin 81 2020- No 81mg [...] 09-04 04-01 by mouth 3 [facility] MG tablet 10:36: 00:00 (three) Medi tessy 43 :00 times Center daily as needed for Itching. hydrOXYzine 2020- No 25mg Take [address] [facility] (ATARAX) 25 -06 09- by mouth 3 [facility] MG tablet [...] Yes .5mg Take [address] [facility] (ATIVAN) 09-04 tablet [facility] 0.5 MG 00:00: (0.5 mg Medical tablet 00 total) by Center mouth every 8 (eight) hours as needed for Anxiety. Max Daily Amount: 1.5 mg atorvastati 2020- No 40mg QD Take [address] [facility] n (LIPITOR) 09-04- tablet (40 [facility] 40 MG 00:00: 00:00 mg total) Medica l tablet 00 :00 by mouth Center nightly. carvediloL 2020- No 25mg Q.5D Take [address] [facility] (COREG) 25 09-04- tablet (25 [place] MG tablet 00:00: 00:00 mg total) Me dical 00 :00 by mouth 2 Center (two) times daily. lisinopriL 2020- No 40mg Q.5D Take [address] [facility] (PRINIVIL,Z 09-04- tablet (40 [facility] ESTRIL) 40 00:00: 00:00 mg total) M edical MG tablet 00 :00 by mouth 2 Cent er (two) times daily. atorvastati 2020- No 40mg QD Take [address] [facility] n (LIPITOR) 09-04- tablet (40 L [facility] 40 MG 00:00: 00:00 mg total) Medica l tablet 00 :00 by mouth Center nightly. carvediloL 2020- No 25mg Q.5D Take [address] [facility] (COREG) 25 09-04- tablet (25 [place] MG tablet 00:00: 00:00 mg total) Me dical 00 :00 by mouth 2 Center (two) times daily. lisinopriL 2020- No 40mg Q.5D Take [address] [facility] (PRINIVIL,Z 09-04- tablet (40 L [facility] ESTRIL) 40 00:00: 00:00 mg total) M edical MG tablet 00 :00 by mouth 2 Cent er (two) times daily. omeprazole 2020- No [facility] (PriLOSEC) 3-25 04- [facility] 40 MG 00:00: 00:00 Medical capsule 00 :00 Center omeprazole 2020-0 2021- No [facility] (PriLOSEC) 08-28- [facility] 40 MG 00:00: 00:00 Medical capsule 00 :00 Center Ciprodex 2021-0 No 4% 0.3 %-0.1 % 3- ear 00:00: drops,suspe 00 nsion Ciprodex 1-0 No 4% 0.3 %-0.1 % 3 ear 00:00: drops,suspe 00 nsion Ciprodex 1-0 No 4% 0.3 %-0.1 % 3 ear 00:00: drops,suspe 00 nsion Ciprodex 1-0 2021- No [facility] 0.3-0.1 % 08-12 [facility] otic 00:00: 00:00 Medical suspension 00 :00 [place] Ciprodex 1-0 2021- No [facility] 0.3-0.1 % 08-12 [facility] otic 00:00: 00:00 Medical suspension 00 :00 [place] sertraline 2020-1 No 1mg 100 mg 2-22 [...] tablet,exte 00 nded release 24 hr omeprazole 2020-1 No 1mg 20 mg 2-22 tablet,lucy 00:00: yed release 00 sertraline 2020-1 No 1mg 100 mg 2-22 tablet 00:00: 00 Singulair 2020-1 No 1mg 10 mg 2-22 tablet 00:00: 00 loratadine 2019-06 No 1mg 10 mg 2-22 tablet 00:00: 00 metoprolol 2019-06 No 1mg succinate 2-22 ER 50 mg 00:00: tablet,exte 00 nded release 24 hr omeprazole 2019-06 No 1mg 20 mg 2-22 tablet,lucy 00:00: yed release 00 sertraline 2019-06 No 1mg 100 mg 0-27 tablet 00:00: 00 sertraline 2019-06 No 1mg 100 mg 0-27 tablet 00:00: 00 sertraline 2019-06 No 1mg 100 mg 0-27 tablet 00:00: 00 Advair 2019-06 No 1mcg/do Diskus 250 [...] 00 nded release 24 hr Senna with 2020-1 No 1mg Docusate 0-22 Sodium 8.6 00:00: mg-50 mg 00 tablet omeprazole 2019-1 No 1mg 20 mg 0-22 tablet,lucy 00:00: yed release 00 sertraline 2020-1 No 1mg 100 mg 0-13 tablet 00:00: 00 buspirone 5 2020-1 No 1mg mg tablet 0-13 00:00: 00 sertraline 2020-1 No 1mg 100 mg 0-13 tablet 00:00: 00 buspirone 5 2019-1 No 1mg mg tablet 0-13 00:00: 00 sertraline 2020-1 No 1mg 100 mg 0-13 tablet 00:00: 00 buspirone 5 2019-1 No 1mg mg tablet 0-13 00:00: 00 [...] tablet 00:00: 00 Dose 2020-0 No Unknown 9- 00:00: 00 metoprolol 2020-0 No 1mg succinate 9-03 ER 50 mg 00:00: tablet,exte 00 nded release 24 hr Senna with 2020-0 No 1mg Docusate 9-03 Sodium 8.6 00:00: mg-50 mg 00 tablet hydroxyzine 2020-0 No 12mg HCl 25 mg 9-03 tablet 00:00: 00 ProAir HFA 2020-0 No 12mcg/a 90 9-03 ctuatio mcg/actuati 00:00: n on aerosol 00 inhaler Dose 2020-0 No Unknown 9- 00:00: 00 metoprolol 2020-0 No 1mg succinate [...] 2-27 ear 00:00: drops,suspe 00 nsion Ciprodex 2018- No 4% 0.3 %-0.1 % 2-27 ear 00:00: drops,suspe 00 nsion ibuprofen 2018- No 1mg 600 mg 2-27 tablet 00:00: 00 Ciprodex 2018-1 No 4% 0.3 %-0.1 % 2-27 ear 00:00: drops,suspe 00 nsion Ciprodex 2018- No 4% 0.3 %-0.1 % 2-27 ear 00:00: drops,suspe 00 nsion ibuprofen 2018- No 1mg 600 mg 2-27 tablet 00:00: 00 lisinopril 2019-1 No 1mg 10 mg 1-27 tablet 00:00: 00 sertraline 2019-1 No 2mg 100 mg 1-27 tablet 00:00: 00 trazodone 2019-1 No 1mg 50 mg 1-27 tablet 00:00: 00 lisinopril 2019-1 No 1mg 10 mg 1-27 tablet 00:00: 00 sertraline 2018-1 No 2mg 100 mg 1-27 tablet 00:00: 00 trazodone 2019-1 No 1mg 50 mg 1-27 tablet 00:00: 00 lisinopril 2019-1 No 1mg 10 mg 1-27 tablet 00:00: 00 sertraline 2019-1 No 2mg 100 mg 1-27 tablet 00:00: 00 trazodone 2019-1 No 1mg 50 mg 1-27 tablet 00:00: 00 buspirone 5 2019-1 No 1mg mg tablet 0-09 00:00: 00 [...] amlodipine 2018-0 No 1mg 5 mg tablet 916 00:00: 00 amlodipine 2018-0 No 1mg 5 mg tablet 916 00:00: 00 amlodipine 2018-0 No 1mg 5 mg tablet 916 00:00: 00 amlodipine 2018-0 No 1mg 2.5 [...] Norvasc 5 2018-0 No 1mg mg tablet 3-15 00:00: 00 Norvasc 5 2018-0 No 1mg mg tablet 3-15 00:00: 00 Norvasc 5 2018-0 No 1mg mg tablet 3-15 00:00: 00 Flagyl 500 2017-1 No 1mg mg tablet 06-11 00:00: 00 Flagyl 500 2016-06 No 1mg mg tablet 06-11 00:00: 00 Flagyl 500 2016-06 No 1mg mg tablet 06-11 00:00: 00 [facility] 5 No 1mg mg tablet 02-23 00:00: 00 [facility] 5 No 1mg mg tablet 02-23 00:00: 00 [facility] 5 No 1mg mg tablet 02-23 00:00: 00 lisinopril Yes 30mg Take 30 mg U nivers 30 mg 6-22 by mouth ity of tablet 15:01: daily. [address] loratadine Yes 10mg Take 10 mg U nivers 10 mg 6-22 by mouth ity of tablet 15:01: daily. [address] ibuprofen Yes 100mg Take 100 Uni vers (ADVIL) 100 6-22 mg by ity of mg tablet 15:01: mouth [place] [address] every 4 Medical (four) Branch hours as needed for Fever. lisinopril Yes 30mg Take 30 mg U nivers 30 mg 6-22 by mouth ity of tablet 15:01: daily. [address] loratadine Yes 10mg Take 10 mg U nivers 10 mg 6-22 by mouth ity of tablet 15:01: daily. [address] ibuprofen Yes 100mg Take 100 Uni vers (ADVIL) 100 6-22 mg by ity of mg tablet 15:01: mouth [place] [address] every 4 Medical (four) Branch hours as needed for Fever. mupirocin 2 No 1% % topical 6-06 ointment 00:00: 00 [facility] 5 No 1mg mg tablet 11-09 00:00: 00 Bactrim DS 2016-0 No 1mg 800 mg-160 6-06 mg tablet 00:00: 00 buspirone 2017-0 No 1mg 15 mg 6-06 tablet 00:00: 00 mupirocin 2 0 No 1% % topical 6-06 ointment 00:00: 00 [facility] 5 0 No 1mg mg tablet 11-09 00:00: 00 Bactrim DS 0 No 1mg 800 mg-160 6-06 mg tablet 00:00: 00 buspirone 2017-0 No 1mg 15 mg 6-06 tablet 00:00: 00 mupirocin 2 2017-0 No 1% % topical 6-06 ointment 00:00: 00 Norvasc 5 2017-0 No 1mg mg tablet 6-06 00:00: 00 Bactrim DS 2017-0 No 1mg [...] 15 mg 4-07 tablet 00:00: 00 ofloxacin 2015- No 5% 0.3 % ear 2-29 drops 00:00: 00 lisinopril 2015- No 1mg 30 mg 2-29 tablet 00:00: 00 ranitidine 2015- No 1mg 150 mg 2-29 tablet 00:00: 00 buspirone 2015- No 1mg 15 mg 2-29 tablet 00:00: 00 ofloxacin 2015-06 No 5% 0.3 % ear 2-29 drops 00:00: 00 lisinopril 2015- No 1mg 30 mg 2-29 tablet 00:00: 00 ranitidine 2015- No 1mg 150 mg 2-29 tablet 00:00: 00 buspirone 2015- No 1mg 15 mg 2-29 tablet 00:00: 00 ofloxacin 2015-06 No 5% 0.3 % ear 2-29 drops 00:00: 00 lisinopril 2016-1 No 1mg 30 mg 2-29 tablet 00:00: 00 ranitidine 2016-1 No 1mg 150 mg 2-29 tablet 00:00: 00 buspirone 2016-1 No 1mg 15 mg 2-29 tablet 00:00: [...] 300 mg 1-12 capsule 00:00: 00 phenazopyri 2015-1 No 1mg dine 100 mg 1-18 tablet 00:00: 00 phenazopyri 2014-1 No 1mg dine 100 mg 1-18 tablet 00:00: 00 phenazopyri 2015-1 No 1mg dine 100 mg 1-18 tablet 00:00: 00 ofloxacin 2014-1 No 5% 0.3 % ear 0-02 drops 00:00: 00 lisinopril 2014-1 No 1mg 30 mg 0-02 tablet 00:00: 00 amoxicillin 2014-1 No 1mg 875 mg 0-02 tablet 00:00: 00 gabapentin 2014-1 No 1mg 300 mg 0-02 capsule 00:00: 00 ofloxacin 2014-1 No 5% 0.3 % ear 0-02 drops 00:00: 00 lisinopril 2015-1 No 1mg 30 mg 0-02 tablet 00:00: 00 amoxicillin 2014-06 No 1mg 875 mg 0-02 tablet 00:00: 00 gabapentin 2014-06 No 1mg 300 mg 0-02 capsule 00:00: 00 ofloxacin 2014-06 No 5% 0.3 % ear 0-02 drops 00:00: 00 lisinopril 2014-06 No 1mg 30 mg 0-02 tablet 00:00: 00 amoxicillin 2014-06 No 1mg 875 mg 0-02 tablet 00:00: 00 gabapentin 2014-06 No 1mg 300 mg 0-02 capsule 00:00: 00 gabapentin No 1mg 300 mg 9-29 capsule 00:00: 00 buspirone No 1mg 15 mg 9-29 tablet 00:00: 00 gabapentin No 1mg 300 mg 9-29 capsule 00:00: 00 buspirone No 1mg 15 mg 9-29 tablet 00:00: 00 gabapentin No 1mg 300 mg 9-29 capsule 00:00: 00 buspirone No 1mg 15 mg 9-29 tablet 00:00: 00 naproxen No 1mg 500 mg 8-22 tablet 00:00: 00 naproxen 0 No 1mg 500 mg 8-22 tablet 00:00: 00 naproxen 0 No 1mg 500 mg 8-22 tablet 00:00: 00 esomeprazol No 40mg Take 40 mg Univers e (NEXIUM 7-13 07-13 by mouth ity o f PACKET) 40 16:32: 00:00 daily with [place] mg packet 39 :00 breakfast. [facility] Branch ranitidine No 1mg 150 mg 7-13 tablet 00:00: 00 ranitidine No 1mg 150 mg 7-13 tablet 00:00: 00 ranitidine 0 No 1mg 150 mg 7-13 tablet 00:00: 00 busPIRone Yes 10mg Take 1 Tab Un [facility] (BUSPAR) 10 7-13 by mouth 2 it y of mg tablet 00:00: (two) [place] 00 times Medical daily. Branch ranitidine Yes [id number] 150mg Take 1 Tab Univers (ZANTAC) 7-13 by mouth 2 ity o f 150 mg 00:00: (two) [place] tablet 00 times Medical daily. Branch busPIRone Yes 10mg Take 1 Tab [facility] (BUSPAR) 10 7-13 by mouth 2 it y of mg tablet 00:00: (two) [place] 00 times Medical daily. Branch ranitidine Yes [id number] 150mg Take 1 Tab Univers (ZANTAC) 7-13 by mouth 2 ity o f 150 mg 00:00: (two) [place] tablet 00 times Medical daily. Branch busPIRone Yes 10mg Take 1 Tab Un [place] (BUSPAR) 10 7-13 by mouth 2 it y of mg tablet 00:00: (two) [place] 00 times Medical daily. Branch ranitidine Yes [id number] 150mg Take 1 Tab Univers (ZANTAC) 7-13 by mouth 2 ity o f 150 mg 00:00: (two) [place] tablet 00 times Medical daily. Branch cyclobenzap Yes [id number] 10mg Take 1 Tab Univers rine 7-13 by mouth 3 ity of (FLEXERIL) 00:00: (three[place] 10 [place] 00 times Medical tablet daily as Branch needed for Muscle Spasms. ciprofloxac Yes [id number] 4[drp] Place 4 Univers in-dexameth 7-13 Drops in ity of asone 00:00: left ear 2 [place] (CIPRODEX) 00 (two) Medical 0.3-0.1 % times Branch otic drops daily. busPIRone Yes 10mg Take 1 Tab [facility] [place] (BUSPAR) 10 7-13 by mouth 2 it y of mg tablet 00:00: (two) [place] 00 times Medical daily. Branch ranitidine Yes [id number] 150mg Take 1 Tab Univers (ZANTAC) 7-13 by mouth 2 ity o f 150 mg 00:00: (two) [place] tablet 00 times Medical daily. Branch nicotine Yes [id number] 1{patch Apply 1 Univers (NICODERM) 7-13 } Patch to ity o f 21 mg/24 hr 00:00: area(s) [place] patch 00 every 24 Medical (twenty-fo Branch ur) hours. X 6 weeks busPIRone 2015-0 Yes 10mg Take 1 Tab [facility] [place] (BUSPAR) 10 7-13 by mouth 2 it y of mg tablet 00:00: (two) [place] 00 times Medical daily. Branch busPIRone 2014-0 Yes 10mg Take 1 Tab [facility] [place] (BUSPAR) 10 7-13 by mouth 2 it y of mg tablet 00:00: (two) [place] 00 times Medical daily. Branch ranitidine 2014- Yes [id number] 150mg Take 1 Tab Univers (ZANTAC) 7-13 by mouth 2 ity o f 150 mg 00:00: (two) [place] tablet 00 times Medical daily. Branch ranitidine 2014- Yes [id number] 150mg Take 1 Tab Univers (ZANTAC) 7-13 by mouth 2 ity o f 150 mg 00:00: (two) [place] tablet 00 times Medical daily. Branch busPIRone 2014- Yes 10mg Take 1 Tab Un [place] (BUSPAR) 10 7-13 by mouth 2 it y of mg tablet 00:00: (two) [place] 00 times Medical daily. Branch ranitidine 2014- Yes [id number] 150mg Take 1 Tab Univers (ZANTAC) 7-13 by mouth 2 ity o f 150 mg 00:00: (two) [place] tablet 00 times Medical daily. Branch busPIRone 2014-0 Yes 10mg Take 1 Tab [facility] [place] (BUSPAR) 10 7-13 by mouth 2 it y of mg tablet 00:00: (two) [place] 00 times Medical daily. Branch ranitidine 2014- Yes [id number] 150mg Take 1 Tab Univers (ZANTAC) 7-13 by mouth 2 ity o f 150 mg 00:00: (two) [place] tablet 00 times Medical daily. Branch busPIRone 2014-0 Yes 10mg Take 1 Tab [facility] (BUSPAR) 10 7-13 by mouth 2 it y of mg tablet 00:00: (two) [place] 00 times Medical daily. Branch ranitidine 2014-0 Yes [id number] 150mg Take 1 Tab Univers (ZANTAC) 7-13 by mouth 2 ity o f 150 mg 00:00: (two) [place] tablet 00 times Medical daily. Branch busPIRone 2014-0 Yes 10mg Take 1 Tab [facility] [place] (BUSPAR) 10 7-13 by mouth 2 it y of mg tablet 00:00: (two) [place] 00 times Medical daily. Branch ranitidine Yes [id number] 150mg Take 1 Tab Univers (ZANTAC) 7-13 by mouth 2 ity o f 150 mg 00:00: (two) [place] tablet 00 times Medical daily. Branch busPIRone Yes 10mg Take 1 Tab [facility] [place] (BUSPAR) 10 7-13 by mouth 2 it y of mg tablet 00:00: (two) [place] 00 times Medical daily. Branch ranitidine Yes [id number] 150mg Take 1 Tab Univers (ZANTAC) 7-13 by mouth 2 ity o f 150 mg 00:00: (two) [place] tablet 00 times Medical daily. Branch busPIRone Yes 10mg Take 1 Tab [facility] [place] (BUSPAR) 10 7-13 by mouth 2 it y of mg tablet 00:00: (two) [place] 00 times Medical daily. Branch ranitidine Yes [id number] 150mg Take 1 Tab Univers (ZANTAC) 7-13 by mouth 2 ity o f 150 mg 00:00: (two) [place] tablet 00 times Medical daily. Branch cyclobenzap Yes [id number] 10mg Take 1 Tab Univers rine 7-13 by mouth 3 ity of (FLEXERIL) 00:00: (three[place] 10 [place] 00 times Medical tablet daily as Branch needed for Muscle Spasms. ciprofloxac Yes [id number] 4[drp] Place 4 Univers in-dexameth 7-13 Drops in ity of asone 00:00: left ear 2 [place] (CIPRODEX) 00 (two) Medical 0.3-0.1 % times Branch otic drops daily. busPIRone Yes 10mg Take 1 Tab Un [place] (BUSPAR) 10 7-13 by mouth 2 it y of mg tablet 00:00: (two) [place] 00 times Medical daily. Branch ranitidine Yes [id number] 150mg Take 1 Tab Univers (ZANTAC) 7-13 by mouth 2 ity o f 150 mg 00:00: (two) [place] tablet 00 times Medical daily. Branch nicotine Yes [id number] 1{patch Apply 1 Univers (NICODERM) 7-13 } Patch to ity o f 21 mg/24 hr 00:00: area(s) [place] patch 00 every 24 Medical (twenty-fo Branch ur) hours. X 6 weeks busPIRone Yes 10mg Take 1 Tab [facility] [place] (BUSPAR) 10 7-13 by mouth 2 it y of mg tablet 00:00: (two) [place] 00 times Medical daily. Branch ranitidine Yes [id number] 150mg Take 1 Tab Univers (ZANTAC) 7-13 by mouth 2 ity o f 150 mg 00:00: (two) [place] tablet 00 times Medical daily. Branch cyclobenzap Yes [id number] 10mg Take 1 Tab Univers rine 7-13 by mouth 3 ity of (FLEXERIL) 00:00: (three) [place] 10 [place] 00 times Medical tablet daily as Branch needed for Muscle Spasms. ciprofloxac Yes [id number] 4[drp] Place 4 Univers in-dexameth 7-13 Drops in ity of asone 00:00: left ear 2 [place] (CIPRODEX) 00 (two) Medical 0.3-0.1 % times Branch otic drops daily. nicotine Yes [id number] 1{patch Apply 1 Univers (NICODERM) 7-13 } Patch to ity o f 21 mg/24 hr 00:00: area(s) [place] patch 00 every 24 Medical (twenty-fo Branch ur) hours. X 6 weeks busPIRone Yes 10mg Take 1 Tab [facility] [place] (BUSPAR) 10 7-13 by mouth 2 it y of mg tablet 00:00: (two) [place] 00 times Medical daily. Branch ranitidine Yes [id number] 150mg Take 1 Tab Univers (ZANTAC) 7-13 by mouth 2 ity o f 150 mg 00:00: (two) [place] tablet 00 times Medical daily. Branch cyclobenzap 2020- No [id number] 10mg Take 1 Tab Univers rine 7-13 12-08 by mouth 3 ity of (FLEXERIL) 00:00: 00:00 (three) [place] 10 mg 00 :00 times Medical tablet daily as Branch needed for Muscle Spasms. ciprofloxac 2020- No [id number] 4[drp] Place 4 Univers in-dexameth 12-16 Drops in ity of asone 00:00: 00:00 left ear 2 [place] (CIPRODEX) 00 :00 (two) Medical 0.3-0.1 % times Branch otic drops daily. nicotine 2020- No [id number] 1{patch Apply 1 Univers (NICODERM) 12-16 } Patch to ity of 21 mg/24 hr 00:00: 00:00 area(s) [place] patch 00 :00 every 24 Medical (twenty-fo Branch ur) hours. X 6 weeks gabapentin 2014-0 No 1mg 300 mg 7-02 capsule 00:00: 00 gabapentin 2014-0 No 1mg 300 mg 7-02 capsule 00:00: 00 gabapentin 2014-0 No 1mg 300 mg 7-02 capsule 00:00: 00 lisinopril 2014-0 No 1mg 30 mg 4-16 tablet 00:00: 00 Augmentin 2014-0 No 1mg 500 mg-125 4-16 mg tablet 00:00: 00 lisinopril 2015-0 No 1mg 30 mg 4-16 tablet 00:00: 00 Augmentin 2014-0 No 1mg 500 mg-125 4-16 mg tablet 00:00: 00 lisinopril 2015-0 No 1mg 30 mg 4-16 tablet 00:00: 00 Augmentin 2015-0 No 1mg 500 mg-125 4-16 mg tablet 00:00: 00 lisinopril 2013-1 No 2mg 20 mg 0-17 tablet 00:00: 00 lisinopril 2013-1 No 2mg 20 mg 0-17 tablet 00:00: 00 lisinopril 1 No 2mg 20 mg 0-17 tablet 00:00: [...] tablet needed for Pain. fluoxetine 2014- No [id number] 40mg Take 1 Cap [facility] (PROZAC) 40 07-13 by mouth ity of mg capsule 00:00: 00:[place]. [place] [facility] oxybutynin 2011- No [id number] 5mg Take 1 Tab Univers chloride 06-11 by mouth 2 ity of (DITROPAN) 00:00: 00:00 (two) [place] 5 mg tablet 00 :00 times Medical daily. Branch hydrochloro 2011- No [id number] 12.5mg Take 1 Cap [facility] thiazide 06-11 by mouth ity of (ESIDRIX) 00:00: 00:00 daily. [place] 12.5 mg 00 :00 Medical capsule Branch conjugated 2011- No [id number] .3mg Take 1 Tab Univers estrogens 06-11 [...] amount to face every evening. FLONASE 50 2007-0 2015- No [id number] 2 sprays Univers MCG/ACTUATI 12-31 each ity of ON NASAL 00:00: 00:00 nostril [place] SPSN 00 :00 Medical Branch Immunizations Ordered Filled Immunization Date Status Comments [facility] Immunization Name Name Influenza Virus 2022-03-17 [...] 2008-05-22 Completed Universit y of Vaccine 00:00:00 [facility] Influenza Virus 2008-05-22 Completed Universit y of Vaccine 00:00:00 [facility] Influenza Virus 2008-05-22 Completed Universit y of Vaccine 00:00:00 [facility] Influenza Virus 2008-05-22 Completed Universit y of Vaccine 00:00:00 [facility] Influenza Virus 2008-05-22 Completed Universit y of Vaccine 00:00:00 [facility] Influenza Virus 2008-05-22 Completed Universit y of Vaccine 00:00:00 [facility] Influenza Virus 2008-05-22 Completed Universit y of Vaccine 00:00:00 [facility] Influenza Virus 2008-05-22 Completed Universit y of Vaccine 00:00:00 [facility] Influenza Virus 2008-05-22 Completed Universit y of Vaccine 00:00:00 [facility] Influenza Virus 2008-05-22 Completed Universit y of Vaccine 00:00:00 [facility] Influenza Virus 2008-05-22 Completed Universit y of Vaccine 00:00:00 [facility] Influenza Virus 2008-05-22 Completed Universit y of Vaccine 00:00:00 [facility] Influenza Virus 2008-05-22 Completed Universit y of Vaccine 00:00:00 [facility] Influenza Virus 2008-05-22 Completed Universit y of Vaccine 00:00:00 [facility] Influenza Virus 2008-05-22 Completed Universit y of Vaccine 00:00:00 [facility] Influenza Virus 2008-05-22 Completed Universit y of Vaccine 00:00:00 [facility] Influenza Virus 2007-03-20 Completed Universit y of Vaccine 00:00:00 [facility] Influenza Virus 2007-03-20 Completed Universit y of Vaccine 00:00:00 [facility] Influenza Virus 2007-03-20 Completed Universit y of Vaccine 00:00:00 [facility] Influenza Virus 2007-03-20 Completed Universit y of Vaccine 00:00:00 [facility] Influenza Virus 2007-03-20 Completed Universit y of Vaccine 00:00:00 [facility] Influenza Virus 2007-03-20 Completed Universit y of Vaccine 00:00:00 [facility] Influenza Virus 2007-03-20 Completed Universit y of Vaccine 00:00:00 [facility] Influenza Virus 2007-03-20 Completed Universit y of Vaccine 00:00:00 [facility] Influenza Virus 2007-03-20 Completed Universit y of Vaccine 00:00:00 [facility] Influenza Virus 2007-03-20 Completed Universit y of Vaccine 00:00:00 [facility] Influenza Virus 2007-03-20 Completed Universit y of Vaccine 00:00:00 [facility] Influenza Virus 2007-03-20 Completed Universit y of Vaccine 00:00:00 [facility] Influenza Virus 2007-03-20 Completed Universit y of Vaccine 00:00:00 [facility] Influenza Virus 2007-03-20 Completed Universit y of Vaccine 00:00:00 [facility] Influenza Virus 2007-03-20 Completed Universit y of Vaccine 00:00:00 [facility] Influenza Virus 2007-03-20 Completed Universit y of Vaccine 00:00:00 [facility] Vital Signs Vital Name Observation Time Observation Value Comments Source WEIGHT 2020-08-30 08:00:00 51.256 kg HEIGHT 2020-08-30 08:00:00 162.6 cm HEIGHT 2019-12-24 00:00:00 162.6 cm WEIGHT 2019-12-24 00:00:00 59.2 kg Body weight 2022-05-21 15:04:00 45.813 kg Universi ty of [facility] BMI 2022-05-21 15:04:00 19.08 kg/m2 Universi ty [facility] Systolic blood 2022-03-17 19:16:00 109 mm[Hg] Univer sity of pressure [facility] Diastolic blood 2022-03-17 19:16:00 62 mm[Hg] Unive rsity of pressure [facility] [facility] Heart rate 2022-03-17 19:16:00 82 /min [facility] Body height 2022-03-17 19:16:00 154.9 cm [facility] Body weight 2022-03-17 19:16:00 46.131 kg [facility] BMI 2022-03-17 19:16:00 19.22 kg/m2 [facility] HEIGHT 2021-05-26 13:42:00 162.6 cm WEIGHT 2021-05-26 13:42:00 50.803 kg Systolic blood 2021-05-13 13:41:00 158 mm[Hg] [facility] Diastolic blood 2021-05-13 13:41:00 74 mm[Hg] [facility] Heart rate 2021-05-13 13:41:00 56 /min [facility] Body temperature 2021-05-13 13:41:00 36.72 Ivonne [facility] Respiratory rate 2021-05-13 13:41:00 18 /min [facility] Oxygen saturation in 2021-05-13 13:41:00 97 /min [facility] Arterial blood by [facility] tessy Pulse oximetry Branch Body height 2021-05-09 03:52:00 162.6 cm [facility] Body weight 2021-05-09 03:52:00 52 kg [facility] BMI 2021-05-09 03:52:00 19.68 kg/m2 [facility] Systolic blood 2021-05-10 22:00:00 188 mm[Hg] [facility] Diastolic blood 2021-05-10 22:00:00 73 mm[Hg] [facility] Heart rate 2021-05-10 22:00:00 69 /min [facility] Respiratory rate 2021-05-10 22:00:00 17 /min [facility] Oxygen saturation in 2021-05-10 22:00:00 100 /min [facility] Arterial blood by [facility] Pulse oximetry Branch Body temperature 2021-05-10 16:15:00 36.94 Ivonne [facility] Body height 2021-05-09 03:52:00 162.6 cm [facility] Body weight 2021-05-09 03:52:00 52 kg [facility] BMI 2021-05-09 03:52:00 19.68 kg/m2 [facility] HEIGHT 2020-12-05 14:55:00 162.6 cm WEIGHT 2020-12-05 [...] blood 2021-05-27 09:21:00 158 mm[Hg] [facility] Diastolic blood 2021-05-27 09:21:00 62 mm[Hg] [facility] Heart rate 2021-05-26 13:42:00 64 /min [facility] Body temperature 2021-05-26 13:42:00 35.94 Ivonne [facility] Body height 2021-05-26 13:42:00 162.6 cm [facility] Body weight 2021-05-26 13:42:00 50.803 kg [facility] BMI 2021-05-26 13:42:00 19.22 kg/m2 [facility] Oxygen saturation in 2021-05-26 13:42:00 99 /min [facility] Arterial blood by Medical Ce [...] [place] Diastolic blood 2020-12-05 14:55:00 57 mm[Hg] [facility] Heart rate 2020-12-05 14:55:00 60 /min [facility] Body temperature 2020-12-05 14:55:00 36.22 Ivonne [facility] Body height 2020-12-05 14:55:00 162.6 cm [facility] Body weight 2020-12-05 14:55:00 49.442 kg [facility] BMI 2020-12-05 14:55:00 18.71 kg/m2 [facility] Oxygen saturation in 2020-12-05 14:55:00 99 /min [facility] Arterial blood by Medical Ce nter Pulse oximetry Respiratory rate 2020-12-05 14:21:00 18 /min [facility] BP Systolic 2020-10-07 11:17:00 149 mm[Hg] BP [...] Performed INSURANCE CORRESPONDENCE 2022-03-26 05:01:00 Doctor Nellie, [facility] FLU 2022-03-17 20:02:18 Doctor Nellie, [facility] VACC([id number]),65+YR,0.5 [facility] ML,IM,ADJUVANTED,QUAD(FLU AD) REFERRAL- 2022-02-25 05:01:00 Doctor Nellie, [facility] REQUEST/RESPONSE [facility] ECG 12-LEAD 2021-05-27 16:19:00 Marlee Aaron [facility] EXTERNAL PROVIDER RECORDS 2021-05-26 06:01:00 Doctor Nellie, [facility] PHOSPHORUS 2021-05-13 10:26:00 Orville Sykes [facility] [place] MAGNESIUM 2021-05-13 10:26:[address] [facility] BASIC METABOLIC PANEL 2021-05-13 10:26:00 Yris Navarro [facility] (NA, K, CL, CO2, GLUCOSE, Medica l Branch BUN, CREATININE, CA) CBC WITH DIFF 2021-05-13 10:26:00 Yris Navarro [facility] [place] CBC WITHOUT DIFF 2021-05-12 21:41:00 Ajene, [facility] PHOSPHORUS 2021-05-12 14:58:[address] [facility] MAGNESIUM 2021-05-12 14:58:[address] [facility] BASIC METABOLIC PANEL 2021-05-12 14:58:00 [facility] (NA, K, CL, CO2, GLUCOSE, Medica l Branch BUN, CREATININE, CA) CBC WITH DIFF 2021-05-12 11:32:00 Ramon [facility] CBC WITHOUT DIFF 2021-05-11 23:46:00 Ramon [facility] CBC WITHOUT DIFF 2021-05-11 23:46:00 Ramon [facility] CBC WITHOUT DIFF 2021-05-11 17:40:00 Ramon [facility] CBC WITHOUT DIFF 2021-05-11 17:40:00 Ramon [facility] PHOSPHORUS 2021-05-11 12:18:[address] [facility] MAGNESIUM 2021-05-11 12:18:00 Orville Sykes, [facility] BASIC METABOLIC PANEL 2021-05-11 12:18:00 [facility] (NA, K, CL, CO2, GLUCOSE, Medica l Branch BUN, CREATININE, CA) PHOSPHORUS 2021-05-11 12:18:[address] [facility] MAGNESIUM 2021-05-11 12:18:00 [facility]OLIC [facility] 2021-05-11 12:18:00 José Navarroselvin [facility] (NA, K, CL, CO2, GLUCOSE, Medica l Branch BUN, CREATININE, CA) CBC WITH DIFF 2021-05-11 10:51:00 Ramon [facility] CBC WITH DIFF 2021-05-11 10:51:00 Ramon [facility] CBC WITHOUT DIFF 2021-05-11 02:51:00 Yris Navarro [facility] CBC WITHOUT DIFF 2021-05-11 02:51:00 Yris Navarro [facility] FL TIME OR 2021-05-11 01:00:00 [facility] (NON-REPORTABLE) [facility] [place] TIME OR 2021-05-11 01:00:00 [facility] (NON-REPORTABLE) [facility] ARTERIOGRAM 2021-05-10 21:50:00 [facility] ARTERIOGRAM 2021-05-10 21:50:00 [facility]ed with [facility] COVID-19 (ID NOW RAPID 2021-05-10 19:38:[facility] LAB ONLY COVID 2021-05-10 19:38:00 [facility]PRETATION [facility] COVID-19 (ID NOW RAPID 2021-05-10 19:38:00 [facility], [facility] TESTING) [facility] LAB ONLY COVID 2021-05-10 19:38:00 [facility] CBC WITHOUT DIFF 2021-05-10 15:22:00 [facility] CBC WITHOUT DIFF 2021-05-10 15:22:00 [facility] MAGNESIUM 2021-05-10 07:26:00 Kim Ambrocio [facility] BASIC METABOLIC PANEL 2021-05-10 07:26:00 Kim Ambrocio [facility] (NA, K, CL, CO2, GLUCOSE, Medica l Branch BUN, CREATININE, CA) CBC WITH DIFF 2021-05-10 07:26:00 Kim Ambrocio [facility] MAGNESIUM 2021-05-10 07:26:00 Kim Ambrocio [facility] BASIC METABOLIC PANEL 2021-05-10 07:26:00 Kim Ambrocio [facility] (NA, K, CL, CO2, GLUCOSE, Medica l Branch BUN, CREATININE, CA) CBC WITH DIFF 2021-05-10 07:26:00 Kim Ambrocio [facility] CBC WITHOUT DIFF 2021-05-10 02:05:00 Gideon [facility] CBC WITHOUT DIFF 2021-05-10 02:05:00 Gideon [facility] BASIC METABOLIC PANEL 2021-05-09 12:43:00 [facility] (NA, K, CL, CO2, GLUCOSE, Medica l Branch BUN, CREATININE, CA) BASIC METABOLIC PANEL 2021-05-09 12:43:00 [facility] (NA, K, CL, CO2, GLUCOSE, Medica l Branch BUN, CREATININE, CA) CBC WITH DIFF 2021-05-09 10:24:00 [facility] CBC WITH DIFF 2021-05-09 10:24:00 [facility] TRANSFUSE PACKED RBC 2021-05-09 06:39:00 Clark Donovan [facility] TRANSFUSE PACKED RBC 2021-05-09 06:39:00 Clark Donovan [facility] URINALYSIS 2021-05-09 06:27:00 [facility] URINE DRUG (IMMUNOASSAY) 2021-05-09 06:27:00 Clark Donovan [facility] SCREEN W/O REFLEX URINALYSIS 2021-05-09 06:27:00 [facility] URINE DRUG (IMMUNOASSAY) 2021-05-09 06:27:00 Clark Donovan [facility] SCREEN W/O REFLEX PREPARE PACKED RBC 2021-05-09 06:24:21 Clark Donovan [facility] PREPARE PACKED RBC 2021-05-09 06:24:21 Clark Donovan [facility] HB ABO GROUPING 2021-05-09 05:19:00 [facility] HB ABO GROUPING 2021-05-09 05:19:00 [facility] PROTHROMBIN TIME / INR 2021-05-09 04:37:00 [facility] 2021-05-09 04:37:00 Clark Donovan [facility] FIBRINOGEN 2021-05-09 04:37:00 [facility] HCV ANTIBODY 2021-05-09 04:37:00 [facility] HEPATITIS C VIRUS (HCV) 2021-05-09 04:37:[address] [facility] BY QUANTITATIVE NAAT Medical [facility] MAGNESIUM 2021-05-09 04:37:00 [facility] FERRITIN SERUM 2021-05-09 04:37:00 [facility] VITAMIN B12, LEVEL 2021-05-09 04:37:00 Clark Donovan [facility] FOLATE 2021-05-09 04:37:00 [facility] TROPONIN I 2021-05-09 04:37:00 [facility] HEPATIC FUNCTION PANEL 2021-05-09 04:37:00 Clark Donovan [facility] ([id number]) (ALB,T.PRO,BILI Medical Branch T,BU/BC,ALT,AST,ALK PHOS) BASIC METABOLIC PANEL 2021-05-09 04:37:00 Clark Donovan [facility] (NA, K, CL, CO2, GLUCOSE, Medica l Branch BUN, CREATININE, CA) IRON PANEL 2021-05-09 04:37:00 [facility] CBC WITH DIFF 2021-05-09 04:37:00 [facility] PROTHROMBIN TIME / INR 2021-05-09 04:37:00 Clark Donovan [facility] ACTIVATED PARTIAL 2021-05-09 04:37:00 Clark Donovan [facility] FIBRINOGEN 2021-05-09 04:37:00 [facility] HCV ANTIBODY 2021-05-09 04:37:00 [facility] MAGNESIUM 2021-05-09 04:37:00 [facility] FERRITIN SERUM 2021-05-09 04:37:00 [facility] VITAMIN B12, LEVEL 2021-05-09 04:37:00 Clark Donovan [facility] FOLATE 2021-05-09 04:37:00 [facility] TROPONIN I 2021-05-09 04:37:00 [facility] HEPATIC FUNCTION PANEL 2021-05-09 04:37:00 Clark Donovan [facility] ([id number]) (ALB,T.PRO,BILI Medical Branch T,BU/BC,ALT,AST,ALK PHOS) BASIC METABOLIC PANEL 2021-05-09 04:37:00 Clark Donovan [facility] (NA, K, CL, CO2, GLUCOSE, Medica l Branch BUN, CREATININE, CA) IRON PANEL 2021-05-09 04:37:00 [facility] CBC WITH DIFF 2021-05-09 04:37:00 [facility] CHEST PULMONARY 2021-05-09 04:33:06 Clark Donovan [facility] 2021-05-09 04:33:06 Clark Donovan [facility] CT ABDOMEN PELVIS W 2021-05-09 04:33:01 Clark Donovan [facility] CONTRAST [facility] CT ABDOMEN PELVIS W 2021-05-09 04:33:01 Clark Donovan [facility] CONTRAST [facility] ECG 12-LEAD 2020-12-09 14:03:00 Marlee Aaron [facility] CBC W/PLT COUNT & AUTO 2020-09-04 02:44:00 Alexandra Ewing [facility] BASIC METABOLIC PANEL (7) 2020-09-04 02:44:00 Ewing, Alexandra [facility] MAGNESIUM 2020-09-04 02:44:00 Ewing, [facility] PHOSPHORUS 2020-09-04 02:44:00 Ewign, [facility] CBC W/PLT COUNT & AUTO 2020-09-03 04:32[facility]OLIC PANEL (7) 2020-09-03 04:32:00 Ewing, [facility] MAGNESIUM 2020-09-03 04:32:00 Ewing, [facility] PHOSPHORUS 2020-09-03 04:32:00 Ewing [facility] CBC W/PLT COUNT & AUTO 2020-09-02 04:48:00 [facility] METABOLIC PANEL (7) 2020-09-02 04:48:00 Ewing, [facility] MAGNESIUM 2020-09-02 04:48:00 Ewing, [facility] PHOSPHORUS 2020-09-02 04:48:00 Ewing [facility] POCT-GLUCOSE METER 2020-09-01 23:56:00 [facility]SE METER 2020-09-01 18:00:00 [facility] CATH & PCI 2020-09-01 16:26:00 [facility] PO[facility]-GLUCOSE METER 2020-09-01 12:20:[address] [facility] POCT-GLUCOSE METER 2020-09-01 12:02:00 [facility] APTT 2020-09-01 09:33:00 [facility] CBC (HEMOGRAM ONLY) 2020-09-01 04:08:00 [facility] BAS[facility] METABOLIC PANEL (7) 2020-09-01 04:08:00 Jake [facility] MAGNESIUM 2020-09-01 04:08:00 Kaylin [facility] PHOSPHORUS 2020-09-01 04:08:00 [facility] 2020-09-01 01:10:00 [facility] PREPARE LEUKO-REDUCED RBC 2020-08-31 23:54:00 [facility] 2020-08-31 15:24:00 [facility] TROPONIN I 2020-08-31 06:15:00 [facility] 2020-08-31 06:15:00 [facility] CBC (HEMOGRAM ONLY) 2020-08-31 04:27:00 [facility] COMPREHENSIVE METABOLIC 2020-08-31 04:27:00 [facility] MAGNESIUM 2020-08-31 04:27:00 [facility]OS[facility]US 2020-08-31 04:27:00 [facility] TROPONIN I 2020-08-31 00:02:00 [facility] 2020-08-30 22:00:00 [facility] 2D ECHO W/ DOPPLER 2020-08-30 15:56:28 Marlee Aaron [facility] (CW/PW/COLOR) [place] PLATELET COUNT 2020-08-30 13:51:00 [facility] APTT 2020-08-30 13:51:00 [facility] OCCULT BLOOD, STOOL 2020-08-30 07:29:00 [facility] TROPONIN I 2020-08-30 05:01:00 [facility] LIPID PANEL 2020-08-30 05:01:00 [facility] B-TYPE NATRIURETIC FACTOR 2020-08-30 05:01:00 [facility] CBC W/PLT COUNT & AUTO 2020-08-30 05:01:00 [facility] DIFFERENTIAL Center BASIC METABOLIC PANEL (7) 2020-08-30 05:01:00 [facility] MAGNESIUM 2020-08-30 05:01:00 Marlee Aaron [facility] TRANSFUSE LEUKO-REDUCED 2020-08-30 04:29:41 [facility] RED BLOOD CELLS Center RAPID DRUG SCREEN, URINE 2020-08-30 04:05:00 [facility] TYPE AND SCREEN, 2020-08-29 23:42:00 [facility] PROTHROMBIN TIME/INR 2020-08-29 22:37:00 [facility] MAGNESIUM 2020-08-29 22:37:00 [facility] TROPONIN I 2020-08-29 22:37:00 [facility] CBC W/PLT COUNT & AUTO 2020-08-29 22:37:00 [facility] Center (MANUAL DIFFERENTIAL) 2020-08-29 22:37:00 [facility] BASIC METABOLIC PANEL (7) 2020-08-29 22:37:00 [facility] HEPATIC FUNCTION PANEL 2020-08-29 22:37:00 [facility] HEMOGLOBIN A1C 2020-08-29 22:37:00 Gabriel Gomez [facility] ECG 12-LEAD 2020-08-29 22:24:57 Unknown, Hl7 Doctor [facility] CARDIAC CATH REPORT - 2020-08-29 00:00:00 Provider, Default [facility] Medical [facility] REPORT OF PROCEDURE - 2020-08-29 00:00:00 Provider, Default [facility] ENDOSCOPY SCAN Scanning [facility] REFERRAL- 2020-05-27 06:01:00 Doctor Unassigned, [facility] REQUEST/RESPONSE [facility] Plan of Care Planned Activity Planned Date Details Comments Source Future Scheduled 2023-08-31 Lipid panel (procedure) [facility] 00:00:00 [code = 50228144] Medical Ce nter Future Scheduled 2023-08-31 Lipid panel (procedure) [facility] 00:00:00 [code = 09835932] Medical Ce nter Future Scheduled 2023-08-31 Lipid panel (procedure) [facility] 00:00:00 [code = 33488131] Medical Ce nter Future Scheduled 2023-02-[address] [facility] 00:00:00 (Season Ended) [code = Medic al Center INFLUENZA VACCINE (Season Ended)] Future Scheduled 2023-02-[address] [facility] 00:00:00 (Season Ended) [code = Medic al Center INFLUENZA VACCINE (Season Ended)] Future Scheduled 2023-02-04 Influenza Vaccine (#1) [facility]00 [code = Influenza Medical Ce nter Vaccine (#1)] Future Scheduled 2022-06-[address] [...] colon Medical Ce nter (procedure) [code = 292658338] Future Scheduled 2021-08-30 Screening for malignant [facility] 00:00:00 neoplasm of colon Medical Ce nter (procedure) [code = 938302648] Future Scheduled 2021-08-30 Screening for malignant [facility] 00:00:00 neoplasm of colon Medical Ce nter (procedure) [code = 788252211] Future Scheduled 2021-08-30 Screening for malignant [facility] 00:00:00 neoplasm of colon Medical Ce nter (procedure) [code = 679731731] Future Scheduled 2021-08-30 Screening for malignant [facility] 00:00:00 neoplasm of colon Medical Ce nter (procedure) [code = 400440798] Future Scheduled 2021-08-30 Screening for malignant [facility] 00:00:00 neoplasm of colon Medical Ce nter (procedure) [code = 518271357] Future Scheduled 2021-08-30 Screening for malignant [facility] 00:00:00 neoplasm of colon Medical Ce nter (procedure) [code = 032665918] Future Scheduled 2021-08-30 Screening for malignant [facility] 00:00:00 neoplasm of colon Medical Ce nter (procedure) [code = 700397743] Future Scheduled 2021-08-30 Screening for malignant [facility] 00:00:00 neoplasm of colon Medical Ce nter (procedure) [code = 737583851] Future Scheduled 2021-08-30 Screening for malignant [facility] 00:00:00 neoplasm of colon Medical Ce nter (procedure) [code = 039488834] Future Scheduled 2021-08-30 Screening for malignant [facility] 00:00:00 neoplasm of colon Medical Ce nter (procedure) [code = 509416949] Future Scheduled 2021-08-30 Screening for malignant [facility] 00:00:00 neoplasm of colon Medical Ce nter (procedure) [code = 284328606] Future Scheduled 2021-08-30 Screening for malignant [facility] 00:00:00 neoplasm of colon Medical Ce nter (procedure) [code = 084276571] Future Scheduled 2021-08-30 Screening for malignant [facility] 00:00:00 neoplasm of colon Medical Ce nter (procedure) [code = 086104775] Future Scheduled 2021-08-30 Screening for malignant [facility] 00:00:00 neoplasm of colon Medical Ce nter (procedure) [code = 702742598] Future Scheduled 2021-08-30 Screening for malignant [facility] 00:00:00 neoplasm of colon Medical Ce nter (procedure) [code = 315571865] Future Scheduled 2021-06-[address] [...] cervix Medical C enter (procedure) [code = 934856911] Future Scheduled 1977 Screening for malignant [facility] 00:00:00 neoplasm of cervix Medical C enter (procedure) [code = 719879798] Future Scheduled 1977 Screening for malignant [facility] 00:00:00 neoplasm of cervix Medical C enter (procedure) [code = 933239190] Future Scheduled 1975 DTAP/TDAP/TD VACCINES CH I [...] breast Medical C enter (procedure) [code = 070544744] Future Scheduled 1956 Screening for malignant [facility] 00:00:00 neoplasm of breast Medical C enter (procedure) [code = 320451950] Future Scheduled 1956 Screening for malignant [facility] 00:00:00 neoplasm of breast Medical C enter (procedure) [code = 433039233] Future Scheduled 1956 CT Colonography (combo) [facility] 00:00:00 [code = CT Colonography [facility] (combo)] Future Scheduled 1956 Screening for malignant [facility] 00:00:00 neoplasm of colon Medical Ce nter (procedure) [code = 028672710] Future Scheduled 1956 DXA SCAN [code = DXA [facility] 00:00:00 SCAN] [facility] Future Scheduled 1956 Screening for malignant [facility] 00:00:00 neoplasm of colon Medical Ce nter (procedure) [code = 822209030] Future Scheduled 1956 Sigmoidoscopy [code = [facility]oscopy] [facility] Future Scheduled 1956 Screening for malignant [facility] 00:00:00 neoplasm of breast Medical C enter (procedure) [code = 647576724] Future Scheduled 1956 CT Colonography (combo) [facility] 00:00:00 [code = CT Colonography [facility] (combo)] Future Scheduled 1956 Screening for malignant [facility] 00:00:00 neoplasm of colon Medical Ce nter (procedure) [code = 760596462] Future Scheduled 1956 DXA SCAN [code = DXA [facility] 00:00:00 SCAN] [facility] Future Scheduled 1956 Screening for malignant [facility] 00:00:00 neoplasm of colon Medical Ce nter (procedure) [code = 677673163] Future Scheduled 1956 Sigmoidoscopy [code = [facility] S[facility]oscopy] [facility] Future Scheduled 1956 Screening for malignant [facility] 00:00:00 neoplasm of breast Medical C enter (procedure) [code = 381063428] Future Scheduled 1956 CT Colonography (combo) [facility] 00:00:00 [code = CT Colonography [facility] (combo)] Future Scheduled 1956 Screening for malignant [facility] 00:00:00 neoplasm of colon Medical Ce nter (procedure) [code = 694120583] Future Scheduled 1956 DXA SCAN [code = DXA [facility] 00:00:00 SCAN] [facility] Future Scheduled [address] Screening for malignant [facility] 00:00:00 neoplasm of colon Medical Ce nter (procedure) [code = 899875268] Future Scheduled 1956 Sigmoidoscopy [code = [facility] S[facility]oscopy] [facility] Future Scheduled 1956 Screening for malignant [facility] 00:00:00 neoplasm of breast Medical C enter (procedure) [code = 413125925] Future Scheduled 1956 CT Colonography (combo) [facility] 00:00:00 [code = CT Colonography [facility] (combo)] Future Scheduled 1956 Screening for malignant [facility] 00:00:00 neoplasm of colon Medical Ce nter (procedure) [code = 849250225] Future Scheduled 1956 DXA SCAN [code = DXA [facility] 00:00:00 SCAN] [facility] Future Scheduled [address] Screening for malignant [facility] 00:00:00 neoplasm of colon Medical Ce nter (procedure) [code = 103602694] Future Scheduled 1956 Sigmoidoscopy [code = [facility] S[facility]oscopy] [facility] Future Scheduled 1956 Screening for malignant [facility] 00:00:00 neoplasm of breast Medical C enter (procedure) [code = 092214385] Future Scheduled 1956 CT Colonography (combo) [facility] 00:00:00 [code = CT Colonography [facility] (combo)] Future Scheduled 1956 Screening for malignant [facility] 00:00:00 neoplasm of colon Medical Ce nter (procedure) [code = 157543959] Future Scheduled 1956 DXA SCAN [code = DXA [facility] 00:00:00 SCAN] [facility] Future Scheduled 1956 Screening for malignant [facility] 00:00:00 neoplasm of colon Medical Ce nter (procedure) [code = 750086314] Future Scheduled 1956 Sigmoidoscopy [code = [facility] S[facility]] [facility] Future Scheduled [address] [facility] malignant [facility] [facility] neoplasm of breast Medical C enter (procedure) [code = 637125216] Future Scheduled 1956 CT Colonography (combo) [facility] 00[facility]00 [code = CT Colonography [facility] (combo)] Future Scheduled 1956 Screening for malignant [facility] 00:00:00 neoplasm of colon Medical Ce nter (procedure) [code = 995394465] Future Scheduled 1956 DXA SCAN [code = DXA [facility] 00:[facility]:00 SCAN] [facility] Future Scheduled 1956 Screening for malignant [facility] 00:00:00 neoplasm of colon Medical Ce nter (procedure) [code = 715977467] Future Scheduled 1956 Sigmoidoscopy [code = [facility] S[facility]oscopy] [facility] Future Scheduled 1956 Screening for malignant [facility] 00:00:00 neoplasm of breast Medical C enter (procedure) [code = 955326008] Future Scheduled 1956 CT Colonography (combo) [facility] 00:00:00 [code = CT Colonography [facility] (combo)] Future Scheduled 1956 Screening for malignant [facility] 00:00:00 neoplasm of colon Medical Ce nter (procedure) [code = 600647873] Future Scheduled 1956 DXA SCAN [code = DXA [facility] 00:00:00 SCAN] [facility] Future Scheduled 1956 Screening for malignant [facility] 00:00:00 neoplasm of colon Medical Ce nter (procedure) [code = 883482360] Future Scheduled 1956 Sigmoidoscopy [code = [facility] Plan [facility] Care Note [code = 64503-0] Goal Plan of Care Note [code = 83969-1] Goal Plan of Care Note [code = 69402-0] Goal Plan of Care Note [code = 84014-0] Goal Plan of Care Note [code = 43142-3] Goal Plan of Care Note [code = 97815-8] Goal Plan of Care Note [code = 43304-0] Goal Plan of Care Note [code = 80842-1] Goal Plan of Care Note [code = 98737-9] Goal Plan of Care Note [code = 55297-3] Goal Plan of Care Note [code = 89987-5] Goal Plan of Care Note [code = 56282-5] Goal Plan of Care Note [code = 89446-9] Goal Plan of Care Note [code = 00378-4] Goal Plan of Care Note [code = 10241-6] Goal Plan of Care Note [code = 72254-9] Goal Plan of Care Note [code = 86422-0] Goal Plan of Care Note [code = 92944-7] Goal Plan of Care Note [code = 22472-1] Goal Plan of Care Note [code = 12404-7] Goal Plan of Care Note [code = 55139-3] Goal Plan of Care Note [code = 79134-5] Goal Plan of Care Note [code = 30931-0] Goal Plan of Care Note [code = 15682-3] Goal Plan of Care Note [code = 64777-8] Goal Plan of Care Note [code = 95080-9] Goal Plan of Care Note [code = 42711-5] Goal Plan of Care Note [code = 42575-8] Goal Plan of Care Note [code = 65579-8] Goal Plan of Care Note [code = 08065-7] Goal Plan of Care Note [code = 12176-9] Goal Plan of Care Note [code = 19623-2] Goal Plan of Care Note [code = 21124-4] Goal Plan of Care Note [code = 04977-4] Goal Plan of Care Note [code = 17005-7] Goal Plan of Care Note [code = 34592-0] Goal Plan of Care Note [code = 70858-4] Goal Plan of Care Note [code = 14876-4] Goal Plan of Care Note [code = 67683-6] Goal Plan of Care Note [code = 66652-1] Goal Plan of Care Note [code = 91894-5] Goal Plan of Care Note [code = 41371-0] Goal Plan of Care Note [code = 36267-9] Goal Plan of Care Note [code = 88799-6] Goal Plan of Care Note [code = 08826-8] Goal Plan of Care Note [code = 30739-4] Goal Plan of Care Note [code = 11283-3] Goal Plan of Care Note [code = 67508-7] Goal Plan of Care Note [code = 10909-7] Goal Plan of Care Note [code = 22262-7] Goal Plan of Care Note [code = 77162-6] Goal Plan of Care Note [code = 71523-5] Goal Plan of Care Note [code = 73066-0] Goal Plan of Care Note [code = 34248-3] Goal Plan of Care Note [code = 06082-2] Goal Plan of Care Note [code = 83661-1] Goal Plan of Care Note [code = 50059-7] Goal Plan of Care Note [code = 18058-8] Goal Plan of Care Note [code = 06103-5] Goal Plan of Care Note [code = 33130-8] Goal Plan of Care Note [code = 12423-5] Goal Plan of Care Note [code = 74429-4] Goal Plan of Care Note [code = 89790-7] Goal Plan of Care Note [code = 54767-8] Goal Plan of Care Note [code = 30801-3] Goal Plan of Care Note [code = 25596-1] Goal Plan of Care Note [code = 23372-2] Goal Plan of Care Note [code = 81895-5] Goal Plan of Care Note [code = 19739-5] Goal Plan of Care Note [code = 71364-2] Goal Plan of Care Note [code = 08172-8] Goal Plan of Care Note [code = 57215-0] Goal Plan of Care Note [code = 64470-5] Goal Plan of Care Note [code = 00119-9] Goal Plan of Care Note [code = 03622-5] Goal Plan of Care Note [code = 36852-2] Goal Plan of Care Note [code = 06011-9] Goal Plan of Care Note [code = 83593-0] Goal Plan of Care Note [code = 77295-4] Goal Plan of Care Note [code = 47698-2] Goal Plan of Care Note [code = 93344-5] Goal Plan of Care Note [code = 77553-8] Goal Plan of Care Note [code = 79301-1] Goal Plan of Care Note [code = 32489-5] Goal Plan of Care Note [code = 99385-9] Goal Plan of Care Note [code = 52686-1] Goal Plan of Care Note [code = 04957-3] Goal Plan of Care Note [code = 02682-7] Goal Plan of Care Note [code = 78757-2] Goal Plan of Care Note [code = 98550-7] Goal Plan of Care Note [code = 82856-8] Goal Plan of Care Note [code = 77790-3] Goal Plan of Care Note [code = 29062-7] Goal Plan of Care Note [code = 42692-0] Goal Plan of Care Note [code = 24651-8] Goal Plan of Care Note [code = 42490-6] Goal Plan of Care Note [code = 67357-2] Goal Plan of Care Note [code = 00369-0] Goal Plan of Care Note [code = 22780-9] Goal Plan of Care Note [code = 33817-9] Goal Plan of Care Note [code = 65789-9] Goal Plan of Care Note [code = 16759-1] Goal Plan of Care Note [code = 22947-8] Goal Plan of Care Note [code = 93089-6] Goal Plan of Care Note [code = 15482-5] Goal Plan of Care Note [code = 48655-5] Goal Plan of Care Note [code = 74321-3] Goal Plan of Care Note [code = 21294-5] Goal Plan of Care Note [code = 45199-6] Goal Plan of Care Note [code = 33532-6] Goal Plan of Care Note [code = 88818-8] Goal Plan of Care Note [code = 92778-2] Goal Plan of Care Note [code = 51413-8] Goal Plan of Care Note [code = 56751-2] Goal Plan of Care Note [code = 47622-3] Goal Plan of Care Note [code = 00189-7] Goal Plan of Care Note [code = 85731-6] Goal Plan of Care Note [code = 66110-0] Goal Plan of Care Note [code = 88701-0] Goal Plan of Care Note [code = 47550-2] Goal Plan of Care Note [code = 36355-4] Goal Plan of Care Note [code = 10179-3] Goal Plan of Care Note [code = 59494-7] Goal Plan of Care Note [code = 42553-7] Goal Plan of Care Note [code = 93639-3] Goal Plan of Care Note [code = 37941-3] Goal Plan of Care Note [code = 63263-5] Goal Plan of Care Note [code = 56859-7] Goal Plan of Care Note [code = 20069-9] Goal Plan of Care Note [code = 86762-1] Goal Plan of Care Note [code = 85555-8] Goal Plan of Care Note [code = 13853-3] Goal Plan of Care Note [code = 17415-4] Goal Plan of Care Note [code = 18383-5] Goal Plan of Care Note [code = 21419-7] Goal Plan of Care Note [code = 93611-9] Goal Plan of Care Note [code = 39919-9] Goal Plan of Care Note [code = 29468-9] Goal Plan of Care Note [code = 25527-2] Goal Plan of Care Note [code = 41507-0] Goal Plan of Care Note [code = 13991-0] Goal Plan of Care Note [code = 13462-5] Goal Plan of Care Note [code = 89233-8] Goal Plan of Care Note [code = 28903-4] Goal Plan of Care Note [code = 89277-5] Goal Plan of Care Note [code = 42623-2] Goal Plan of Care Note [code = 42355-7] Goal Plan of Care Note [code = 41538-0] Goal Plan of Care Note [code = 61010-6] Goal Plan of Care Note [code = 66424-3] Goal Plan of Care Note [code = 34795-1] Goal Plan of Care Note [code = 67709-0] Goal Plan of Care Note [code = 74226-7] Goal Plan of Care Note [code = 56646-2] Goal Plan of Care Note [code = 98023-5] Goal Plan of Care Note [code = 14971-7] Goal Plan of Care Note [code = 62868-6] Goal Plan of Care Note [code = 01433-5] Goal Plan of Care Note [code = 87208-1] Goal Plan of Care Note [code = 16026-3] Goal Plan of Care Note [code = 82970-7] Goal Plan of Care Note [code = 90396-0] Goal Plan of Care Note [code = 29351-2] Goal Plan of Care Note [code = 54238-0] Goal Plan of Care Note [code = 83462-0] Goal Plan of Care Note [code = 21701-9] Goal Plan of Care Note [code = 43763-2] Goal Plan of Care Note [code = 96394-9] Goal Plan of Care Note [code = 17703-0] Goal Plan of Care Note [code = 87466-3] Goal Plan of Care Note [code = 25921-6] Goal Plan of Care Note [code = 98122-5] Goal Plan of Care Note [code = 12370-7] Goal Plan of Care Note [code = 76360-9] Goal Plan of Care Note [code = 14013-6] Goal Plan of Care Note [code = 87514-6] Goal Plan of Care Note [code = 88608-4] Goal Plan of Care Note [code = 47597-6] Goal Plan of Care Note [code = 48306-6] Goal Plan of Care Note [code = 04755-9] Goal Plan of Care Note [code = 51728-6] Goal Plan of Care Note [code = 22962-8] Goal Plan of Care Note [code = 71112-9] Goal Plan of Care Note [code = 24298-5] Goal Plan of Care Note [code = 42328-8] Goal Plan of Care Note [code = 59091-2] Goal Plan of Care Note [code = 06430-4] Goal Plan of Care Note [code = 01359-5] Goal Plan of Care Note [code = 94704-6] Goal Plan of Care Note [code = 79868-7] Encounters Start End Encounter Admission Attending Care Care Encounter Source Date/Time Date/Time Type Type Clinicians Facility Department ID 2021-03-14 Inpatient ER [facility] Cardiology [id number] 10:04:36 [facility] 2020-08-29 Inpatient ER JAKE, [facility] Cardiology [id number] [facility] 21:16:00 GASTON 2019-12-24 Inpatient ER NALAM, [facility] Gastro [id number] [facility] 21:00:00 HARRIET 2022-09-02 2022-09-02 Outpatient SFA SFA [id number] Alexei 14:56:45 14:56:45 0330 F Fracisco 2022-06-08 2022-06-08 Outpatient JENNIFER RODRIGUEZ [id number] Alexei 11:09:30 11:09:30 0103 F Fracsico 2022-05-27 2022-05-27 Outpatient Heena [facility] [id number] Univers 11:00:00 11:00:00 [facility] 2022-05-21 2022-05-21 Outpatient Heena [facility] [id number] Univers 08:45:00 09:33:35 [facility] 2022-05-21 2022-05-21 [facility] 1.2.840.114 [id number] Univers 08:45:00 09:33:35 Visit [facility] 350.1.13.10 it y of [place] 4.2.7.2.686 Jax as JOE?BLEA [phone] Mo lizbeth [address] MEDICAL OFFICE BUILDING 2022-05-05 2022-05-05 Outpatient Heena [facility] [id number] Univers 13:00:00 13:00:00 [facility] 2022-04-19 2022-04-19 [facility] [id number] Univers 16:15:00 16:15:00 [facility] 2022-04-14 2022-04-14 Outpatient Heena ADAMA [facility] [id number] Univers 14:15:00 14:15:00 PIPO delacruz [facility] 2022-04-07 2022-04-07 Outpatient R ADAMA [facility] [id number] Univers 13:15:00 13:15:00 PIPO delacruz [facility] 2022-04-07 2022-04-07 Telephone Adama [facility] [id number] [id number] Univers 00:00:00 00:00:00 Pipo Rubio HEALTH 350.1.13.10 it y of [place] 4.2.7.2.686 Jax as JOE?BLEA [phone] Mo lizbeth RUIZ [address] [place] [address] MEDICAL OFFICE [facility] 2022-03-26 2022-03-26 Orders Doctor ZION 1.2.840.114 [id number] Univers 00:00:00 00:00:00 Only Unassigned, AGUSTIN 350.1.13.10 ity of [place] [facility] 4.2.7.2.686 Jax as [phone] [address] 2022-03-23 2022-03-23 Telephone Marla [facility] 1.2.840.114 [id number] Univers 00:00:00 00:00:00 Juan Ramon HOOKER 350.1.13.10 i ty of [place] [phone] Mo lizbeth ROJO [address] [place] [address] 2022-03-17 2022-03-17 Outpatient R MARLA [facility] [id number] Univers 14:20:00 23:59:00 JUAN RAMON delacruz [facility] 2022-03-17 2022-03-17 Imm/Inj Nurse, Lei Mustafa [facility] 1.2.840.114 [id number] Univers 15:00:00 15:20:00 Visit Juan Ramon Gutiérrez [facility] 350.1.13.10 ity of [place] 4.2.7.2.686 [place]ax [place] JOE?BLEA [phone] Mo lizbeth STEELE[address] MEDICAL OFFICE [facility] 2022-03-17 2022-03-17 [facility] 1.2.945.766 [id number] Univers 14:30:00 14:51:15 Visit Juan Ramon [facility] 350.1.13.10 it y of [place] 4.2.7.2.686 Jax as JOE?BLEA [phone] Mo dical [address] MEDICAL OFFICE [facility] 2022-02-25 2022-02-25 Outpatient 2dyzp5a2- [id number] 2f ovj4c1-3 00:00:00 00:00:00 Visit 5446-4adf 446-4adf-8 -8ccf-338 [facility]-279344 637722i9t 425a4a 2022-02-25 2022-02-25 Orders Doctor ZION 1.2.840.114 [id number] Univers 00:00:00 00:00:00 Only Unassigned, AGUSTIN 350.1.13.10 [facility] 4.2.7.2.686 Jax as [phone] [address] 2022-02-12 2022-02-12 Outpatient fq02arr5- [id number] bb 79fgi2-t 00:00:00 00:00:00 Visit qe92-9344 z20-7071-p -pe64-2t1 s56-9z758t 64r0jo961 6zg740 2022-01-20 2022-01-20 Outpatient l33n5774- [id number] f7 0z5422-6 00:00:00 00:00:00 Visit 7n80-1859 t94-1205-8 -861f-51d 61f-51db76 y2938s8fa 60d1de 2021-06-15 2021-06-15 Outpatient ANGIE [facility] [id number] [facility]:00[facility]00 [facility] 2021-05-26 2021-05-26 Office Galen [facility] [id number] 14:00:00 14:21:24 Visit [facility] 2021-05-26 2021-05-26 Travel [facility] [id number] [facility] 00:[facility]00 00:00:00 [facility] 2021-05-26 2021-05-26 Orders Doctor ZION 1.2.840.114 [id number] Univers 00:00:00 00:00:00 Only Unassigned, AGUSTIN 350.1.13.10 ity of [place] [facility] 4.2.7.2.686 Jax as [phone] [facility] [address] 2021-05-14 2021-05-14 Transition ILYA Parker 1.2.840.114 [id number] Univers 00:00:00 00:00:00 of Care Americo Shannon VIDAL 350.1.13.10 ity [place] [phone] [facility] [address] 2021-05-08 2021-05-13 Hospital Dameon Lucas 1.2. 840.114 [id number] Univers 19:37:00 13:22:00 Encounter [place] 350.1.13. 10 ity of Myah Barlow [facility] 4.2.7.2.686 [place] [phone] [facility] [address] 2021-05-08 2021-05-13 Inpatient U LISE [facility] STR [id number] Univers 19:37:00 13:22:00 [facility] 2021-05-10 2021-05-10 Surgery ARIADNA [place] 1.2.840.114 [id number] Univers 13:35:00 16:11:00 Veena VELEZ 350.1.13.10 ity of [facility] 4.2.7.2.686 Jax as [phone] [facility] [address] 2020-12-05 2020-12-05 [facility] [id number] 14:54:56 15:04:23 Visit [facility] 2020-12-05 2020-12-05 Travel [facility] [id number] [facility] 00:00:00 00:00:00 [facility] 2020-11-13 2020-11-13 Outpatient GALEN [facility] [id number] 00:00:00 00:00:00 [facility] 2020-11-06 2020-11-06 Outpatient GALEN, [facility] [id number] 00:00:00 00:00:00 [facility] 2020-10-23 2020-10-23 Outpatient GALEN, [facility] [id number] 00:00:00 00:00:00 [facility] 2020-10-21 2020-10-21 Outpatient GALEN, [facility] [id number] 00:00:00 00:00:00 [facility] 2020-08-29 2020-09-04 Hospital Gaston Bledsoe [facility] [id number] [facility] 21:16:00 12:30:00 Encounter Hermann Maria [facility] 2020-09-01 2020-09-01 [facility] [id number] 16:00:00 17:04:00 [facility] '[facility] Cooter 2020-08-30 2020-08-30 Travel [facility] [id number] [facility] 00:00:00 00:00:00 [facility] 2020-08-29 2020-08-29 Orders [facility] [id number] 00:00:00 00:00:00 Only [facility] 2020-06-25 2020-06-25 Letter ZION Sierra 1.2.840.114 [id number] Univers 00:00:00 00:00:00 (Out) Amarilys VELEZ 350.1.13.10 it y of HOSPITAL 4.2.7.2.686 Jax as [phone] [facility] [address] 2020-05-27 2020-05-27 Orders Doctor DONOVAN 1.2.840.114 [id number] Univers 00:00:00 00:00:00 Only UnassignedAGUSTIN 350.1.13.10 ity of [place] [facility] 4.2.7.2.686 Jax as [phone] [facility] [address] 2011-11-23 2011-11-23 QUENTIN Rojas 1.2.133.058 [id number] Univers 00:00:00 00:00:00 Anat CEDENO 350.1.13.10 i [facility] 4.2.7.2.686 Jax as CLINIC - [phone] [address] Results Test Description Test Time Test [...] Testis a DNA probe test intended for us e in the detectionand identification of Ngoc species, Gardnerellavagi nalis and Trichomonas vaginalis nucle ic acid. [facility] has important patho logy staff changes effective 08/04. New pathology staff will provide uninterrupted, excellent patient care and clinical co nsultation. See URL: [email or web address]. UNLESS OTHERWISE INDIC ATED, ALL TESTING PERFORMED AT [facility], [facility]. [address] [place] [address] 4 [employer]IGAR WRAPPER TENDER AUTOMATIC: VEENA JUNIOR M.D. [facility] NUMBER [id number] [facility]. [id number] CBC W/AUTO DIFF WITH [id number] 10:13:12 Test Item Value Reference Range Interpretation [...] message] code = 1065) WBC'S The system [employer] generated this result transmitted ref erence range: [...] RBCS 0.00 K/UL 0.00-0.11 (test code = 97523) COMMENTS (test code (NOTE) MODERAT E = 1016) ANISOCYTOSIS FE W ELLIPTOCYTES MO DERATE HYPOCHROMASIA S LIGHT MICROCYTOSIS SL IGHT POIKILOCYTOSIS SLIGHT POLYCHROMASIA F EW TARGET CELLS FE W TEAR DROP CELLS PLAT ELETS APPEAR NORMAL COMPREHENSIVE METABOLIC [id number] 06:14:54 Test Item Value Reference Range Interpretation Comments GLUCOSE (test code = 103 MG/DL 70-99 H 2216) BUN (test code = 5 MG/DL 8-23 L 2207) CREATININE (test 0.42 MG/DL 0.60-1.30 L code = 2214) eGFR (2020 CKD-EPI) 108 >60 (test code = 37237) ML/MIN/1.73 CALC BUN/CREAT (test 12 RATIO 6-28 code = 2235) SODIUM (test code = 137 MEQ/L 976-409 4601) POTASSIUM (test code 4.0 MEQ/L 3.5-5.4 = 2227) CHLORIDE (test code 103 MEQ/L 95-107 = 2214) CARBON DIOXIDE (test 20 MEQ/L 19-31 code = 220) CALCIUM (test code = 8.6 MG/DL 8.5-10.5 2208) PROTEIN, TOTAL (test 6.7 G/DL 6.1-8.3 code = 222) ALBUMIN (test code = 3.2 G/DL 3.5-5.2 L 2200) CALC GLOBULIN (test 3.5 G/DL 1.9-3.7 code = 2240) CALC A/G RATIO (test 0.9 RATIO 1.0-2.6 L code = 223) BILIRUBIN, TOTAL 0.5 MG/DL See_Comment [Automated message] (test code = 2206) The syste m which generated this result transmit diane reference range : <=1.2. The refe rence range was not u sed to interpret th is result as normal/abnormal . ALKALINE PHOSPHATASE 120 U/L 40-142 (test code = 2203) AST (test code = 46 U/L 9-40 H 2217) ALT (test code = 20 U/L 5-40 2218) LIPID [id number] 06:14:54 Test Item Value Reference Range Interpretation [...] MOREINFORMATION , SEE CLIENT ANNOUNCE MENT AT [email or web address] RISK RATIO LDL/HDL 1.13 RATIO <3.22 UNLESS O THERWISE (test code = 223) INDICATED , ALL TESTING PERFORMED [facility], I [place]. [address] [facility] [place] [address] [facility] DIRECTOR: PRISCILA AJ M.D. CLIA NUMBER [id number] [facility] ACCREDITATION N O. [id number] PAP TEST, THINPREP, [id number] 13:36:39 Test Item Value Reference Range Interpretation Comments SOURCE: (test code = Cervical/Endoc 8001) ervical SLIDES: (test code = 1 3711) LMP: (test code = SEE NOTE POST ELIZABETH PAUSAL 8048) SPECIMEN ADEQUACY: (NOTE) Christina carias for (test code = 60341) evaluati on. Endocervical cells/transform ation zone component present. INTERPRETATION: ASCUS/EPITH. A --------- (test code = 14686) ABNORMALITY; -------- SEE BELOW ------ ------- EPITHELIAL CELL ABNORMALITY Atypical squamo us cells of undete rmined significance (ASC-US)------- ------ ------ ------ FOREIGN LANGUAGE STENOGRAPHER: Leni (test code = 8101) Curtis QC TECHNOLOGIST: Renetta Davis, (test code = 8111) [facility](ASC) [facility] PATHOLOGIST Juana Ashby INTERPRETATION BY: Curtis Lora (test code = 8122) LOCATION: (test code (NOTE) Specime ns processed = 95115) and interpreted at [facility] , [address] [place], [place] [address], Phone: , CLIA: [id number] CPT: (test code = (NOTE) 20007, 881 41 UNLESS 8140) OTHERWISE INDIC ATED, [...] as applicable. HPV HIGH RISK WITH GENOTYPE, [id number] 16:10:37 Test Item Value Reference Range Interpretation Comments HPV HIGH RISK INTERP POSITIVE NEGATIVE A (test code = 25519) HPV 16 (test code = POSITIVE A 47728) HPV 18 (test code = NEGATIVE 97490) HPV, HR, OTHER POSITIVE A Testing meth odology is GENOTYPES (test code real-ti me PCR utilizing = 12111) hydrolysis prob es with the DxTerityas 4800 system. The rosa elena t individually [...] ATED, ALL TESTING PERFORM ED ATCLINICAL PATH [facility], [facility]. [address] [place] [address] LABORATORY DIRE CTOR: Curtis WHITESIDE NUMBER [id number] [facility] ACCREDIT[facility] ON NO. VAGINAL PATHOGENS DNA [id number] 15:05:42 Test Item Value Reference Range Interpretation Comments NGOC SPECIES (test NEGATIVE NEGATIVE code = ) G. VAGINALIS (test POSITIVE NEGATIVE A code = ) T. VAGINALIS (test NEGATIVE NEGATIVE UNLESS O THERWISE code = ) INDICATED, ALL TESTING PERFORMED ATCLI NICAL PATHOLOGY LABOR [facility] [address] [place], [place] [address] LABORATORY DIRE CTOR: Curtis WHITESIDEIA NUMBER [id number] CAP ACCREDITATI ON NO. VAGINAL PATHOGENS DNA [id number] 00:00:00 Test Item Value Reference Range Interpretation Comments NGOC SPECIES (test code = 80987) NEGATIVE G. VAGINALIS (test code = 37642) POSITIVE T. VAGINALIS (test code = 21557) NEGATIVE VAGINAL PATHOGENS DNA [id number] 00:00:00 Test Item Value Reference Range Interpretation Comments NGOC SPECIES (test code = ) NEGATIVE G. VAGINALIS (test code = ) POSITIVE T. VAGINALIS (test code = ) NEGATIVE VAGINAL PATHOGENS DNA [id number] 00:00:00 Test Item Value Reference Range Interpretation Comments NGOC SPECIES (test code = ) NEGATIVE G. VAGINALIS (test code = 86665) POSITIVE T. VAGINALIS (test code = ) NEGATIVE VAGINAL PATHOGENS DNA [id number] 00:00:00 Test Item Value Reference Range Interpretation Comments NGOC SPECIES (test code = ) NEGATIVE G. VAGINALIS (test code = ) POSITIVE T. VAGINALIS (test code = ) NEGATIVE ECG 12 [id number] 16:19:00 Test Item Value Reference Range Interpretation Comments Lab Interpretation (test code = Abnormal 40249-9) [facility]NA, K, CL, CO2, GLUCOSE, BUN, CREATININE, CA)2021-05-13 11:18:18 Test Item Value Reference Range Interpretation Comments NA (test code = 136 mmol/L 135-145 [id number]) K (test code = 3.7 mmol/L 3.5-5.0 4775014262) CL (test code = 105 mmol/L 98-108 2141227360) CO2 TOTAL (test code = 30 mmol/L 23-31 8573340383) AGAP (test code = 2-16 L [id number]) BUN (test code = 7 mg/dL 7-23 7106102176) GLUCOSE (test code = 89 mg/dL 70-110 5971374214) CREATININE (test code = 0.41 mg/dL 0.50-1.04 L 2231226720) CALCIUM (test code = 7.9 mg/dL 8.6-10.6 L 3218558169) eGFR (test code = mL/min/1.73m2 0505191286) DIONI (test code = DIONI) Association of [...] tests). Lab Interpretation Abnormal (test code = 86968-5) [id number] 11:18:18 Test Item Value Reference Range Interpretation Comments MAGNESIUM (test code = 1559519842) 1.7 mg/dL 1.7-2.4 Lab Interpretation (test code = Normal 79833-6) [facility] [facility]2021-12-08 11:18:18 Test Item Value Reference Range Interpretation Comments PHOSPHORUS (test code = 9702990095) 3.5 mg/dL 2.5-5.0 Lab Interpretation (test code = Normal 35782-7) [id number] 10:46:13 Test Item Value Reference Range Interpretation Comments WBC (test code = See_Comment [Automated 4890-2) message] The sy stem which generated this result transmitted reference range : 4.30 - 11.10 10*3/?L. The reference range was not used to interpret this result as normal/abnormal . RBC (test code = See_Comment L [Automated 299-8) message] The sy stem which generated this [...] (test code = 63.9 fL 39.0-49.9 H 99290-2) RDW-CV (test code = 22.8 % 12.0-15.5 H 788-0) PLT (test code = See_Comment H [Automated 777-3) message] The sy stem which generated this result transmitted reference range : 166 - 358 10*3/ ?L. The reference r james was not used to interpret this result as normal/abnormal . MPV (test code = 9.8 fL 9.5-12.9 88449-7) NRBC/100 WBC (test See_Comment [Automat ed code = 2846872758) message] The system which generated this result transmitted reference range : 0.0 - 10.0 /100 WBCs. The refer ence range was not u sed to interpret th is result as normal/abnormal . NRBC x10^3 (test code <0.01 See_Comment [Auto mated = 5058026284) message] The s ystem which generated this result transmitted reference range : 10*3/?L. The reference range was not used to interpret this result as normal/abnormal . GRAN MAT (NEUT) % 66.9 % (test code = 770-8) IMM GRAN % (test code 0.30 % = 6770561777) LYMPH % (test code = 20.3 % 736-9) MONO % (test code = 10.1 % 5905-5) EOS % (test code = 2.0 % 713-8) BASO % (test code = 0.4 % 706-2) GRAN MAT x10^3(ANC) 4.69 10*3/uL 1.88-7.09 (test code = 0926374376) IMM GRAN x10^3 (test <0.03 0.00-0.06 code = 4315611304) LYMPH x10^3 (test code 1.42 10*3/uL 1.32-3.29 = 731-0) MONO x10^3 (test code 0.71 10*3/uL 0.33-0.92 = 742-7) EOS x10^3 (test code = 0.14 10*3/uL 0.03-0.39 711-2) BASO x10^3 (test code 0.03 10*3/uL 0.01-0.07 = 704-7) Lab Interpretation Abnormal (test code = 22567-2) [facility] WITHOUT [id number] 21:48:17 Test Item Value Reference Range Interpretation Comments WBC (test code = 6690-2) See_Comment [A utomated message] The system [employer] generated this result transmit diane reference range : 4.30 - 11.10 10*3/?L. The reference range was not used to interpret this result as normal/abnormal . RBC (test code = 789-8) See_Comment L [Au tomated message] The system [employer] generated this result transmit diane reference range [...] See_Comment H [Au tomated message] The system [employer] generated this result transmit diane reference range : 166 - 358 10*3/?L. The reference range was not used to interpret this result as normal/abnormal . MPV (test code = 10.2 fL 9.5-12.9 98342-2) RDW-CV (test code = 23.3 % 12.0-15.5 H 788-0) RDW-SD (test code = 64.7 fL 39.0-49.9 H 43859-6) NRBC x10^3 (test code = <0.01 See_Comment [Au tomated message] 5542716455) The system [employer] generated this result transmit diane reference range : 10*3/?L. The reference range was not used to interpret this result as normal/abnormal . NRBC/100 WBC (test code See_Comment [Au tomated message] = 0675913646) The system [employer] generated this result transmit diane reference range : 0.0 - 10.0 /100 WBC s. The reference r james was not used to interpret this result as normal/abnormal . IPF % (test code = 2381173885) Lab Interpretation (test Abnormal code = 51116-7) [facility] METABOLIC PANEL (NA, K, CL, CO2, GLUCOSE, BUN, CREATININE, CA)2021-05-12 15:31:30 Test Item Value Reference Range Interpretation Comments NA (test code = 137 mmol/L 135-145 4982605707) K (test code = 3.5 mmol/L 3.5-5.0 3703240471) CL (test code = 104 mmol/L 98-108 3451863591) CO2 TOTAL (test code = 31 mmol/L 23-31 8987231878) AGAP (test code = 2-16 5802899528) BUN (test code = 7 mg/dL 7-23 4971741539) GLUCOSE (test code = 88 mg/dL 70-110 8702764193) CREATININE (test code = 0.36 mg/dL 0.50-1.04 L 3414879858) CALCIUM (test code = 8.0 mg/dL 8.6-10.6 L 9704653212) eGFR (test code = mL/min/1.73m2 7608665246) DIONI (test code = DIONI) Association of [...] tests). Lab Interpretation Abnormal (test code = 21748-5) [facility]30 Test Item Value Reference Range Interpretation Comments MAGNESIUM (test code = 7536493184) 1.9 mg/dL 1.7-2.4 Lab Interpretation (test code = Normal 16870-7) [facility] 15:[facility]:30 Test Item Value Reference Range Interpretation Comments PHOSPHORUS (test code = 7132545891) 3.7 mg/dL 2.5-5.0 Lab Interpretation (test code = Normal 05541-0) [facility]AT 2021-05-12 15:02:24 Test Item Value Reference Range Interpretation Comments HCV Quantitative NAAT Not Detected log - log IU/mL (test code IU/mL = 81038-5) HCV Quantitative NAAT Not Detected - IU/mL (test code = IU/mL 35122-5) HCV Quantitative Detected Not Detected A Interpretation (test code = 8809183188) DIONI (test code = DIONI) Report updated with IU/mL result. The Aptima HCV Quant Dx assay is an FDA-approved real-time customer operations intern-mediated amplification (TMA) test used for both detection [...] indicated. Lab Interpretation Abnormal (test code = 27811-0) [facility] WITH [id number] 11:52:46 Test Item Value Reference Range Interpretation Comments WBC (test code = See_Comment [Automated 5990-2) message] The sy stem which generated this [...] (test code = 63.6 fL 39.0-49.9 H 14028-3) RDW-CV (test code = 23.2 % 12.0-15.5 H 788-0) PLT (test code = See_Comment H [Automated 777-3) message] The sy stem which generated this result transmitted reference range : 166 - 358 10*3/ ?L. The reference r james was not used to interpret this result as normal/abnormal . MPV (test code = 10.1 fL 9.5-12.9 87489-2) NRBC/100 WBC (test See_Comment [Automat ed code = 4667004870) message] The system which generated this result transmitted reference range : 0.0 - 10.0 /100 WBCs. The refer ence range was not u sed to interpret th is result as normal/abnormal . NRBC x10^3 (test code <0.01 See_Comment [Auto mated = 0936693021) message] The s ystem which generated this result transmitted reference range : 10*3/?L. The reference range was not used to interpret this result as normal/abnormal . GRAN MAT (NEUT) % 72.3 % (test code = 770-8) IMM GRAN % (test code 0.50 % = 7066527750) LYMPH % (test code = 17.6 % 736-9) MONO % (test code = 8.4 % 5905-5) EOS % (test code = 1.1 % 713-8) BASO % (test code = 0.1 % 706-2) GRAN MAT x10^3(ANC) 5.69 10*3/uL 1.88-7.09 (test code = 0934762685) IMM GRAN x10^3 (test 0.04 10*3/uL 0.00-0.06 code = 0230038948) LYMPH x10^3 (test code 1.39 10*3/uL 1.32-3.29 = 731-0) MONO x10^3 (test code 0.66 10*3/uL 0.33-0.92 = 742-7) EOS x10^3 (test code = 0.09 10*3/uL 0.03-0.39 711-2) BASO x10^3 (test code <0.03 0.01-0.07 = 704-7) Lab Interpretation Abnormal (test code = 68175-7) [facility] WITHOUT [id number] 00:01:47 Test Item Value Reference Range Interpretation Comments WBC (test code = 6690-2) See_Comment H [A utomated message] The system [employer] generated this result transmit diane reference range : 4.30 - 11.10 10*3/?L. The reference range was not used to interpret this result as normal/abnormal . RBC (test code = 789-8) See_Comment L [Au tomated message] The system [employer] generated this result transmit diane reference range [...] See_Comment H [Au tomated message] The system [employer] generated this result transmit diane reference range : 166 - 358 10*3/?L. The reference range was not used to interpret this result as normal/abnormal . MPV (test code = 10.5 fL 9.5-12.9 37073-6) RDW-CV (test code = 23.1 % 12.0-15.5 H 788-0) RDW-SD (test code = 62.0 fL 39.0-49.9 H 82585-1) NRBC x10^3 (test code = <0.01 See_Comment [Au tomated message] 2728583906) The system [employer] generated this result transmit diane reference range : 10*3/?L. The reference range was not used to interpret this result as normal/abnormal . NRBC/100 WBC (test code See_Comment [Au tomated message] = 9099407553) The system [employer] generated this result transmit diane reference range : 0.0 - 10.0 /100 WBC s. The reference r james was not used to interpret this result as normal/abnormal . IPF % (test code = 4379182288) Lab Interpretation (test Abnormal code = 27538-4) [facility] WITHOUT [id number] 00:01:47 Test Item Value Reference Range Interpretation Comments WBC (test code = 6690-2) See_Comment H [A utomated message] The system [employer] generated this result transmit diane reference range : 4.30 - 11.10 10*3/?L. The reference range was not used to interpret this result as normal/abnormal . RBC (test code = 789-8) See_Comment L [Au tomated message] The system [employer] generated this result transmit diane reference range [...] See_Comment H [Au tomated message] The system [employer] generated this result transmit diane reference range : 166 - 358 10*3/?L. The reference range was not used to interpret this result as normal/abnormal . MPV (test code = 10.5 fL 9.5-12.9 89828-1) RDW-CV (test code = 23.1 % 12.0-15.5 H 788-0) RDW-SD (test code = 62.0 fL 39.0-49.9 H 07201-1) NRBC x10^3 (test code = <0.01 See_Comment [Au tomated message] 8818156107) The system [facility] generated this result transmit diane reference range : 10*3/?L. The reference range was not used to interpret this result as normal/abnormal . NRBC/100 WBC (test code See_Comment [Au tomated message] = 6811818880) The system [facility] generated this result transmit diane reference range : 0.0 - 10.0 /100 WBC s. The reference r james was not used to interpret this result as normal/abnormal . IPF % (test code = 6483302452) Lab Interpretation (test Abnormal code = 89328-0) [facility] WITHOUT [id number] 17:58:54 Test Item Value Reference Range Interpretation Comments WBC (test code = 6690-2) See_Comment [A utomated message] The system [facility] generated this result transmit diane reference range : 4.30 - 11.10 10*3/?L. The reference range was not used to interpret this result as normal/abnormal . RBC (test code = 789-8) See_Comment L [Au tomated message] The system [facility] generated this result transmit diane [...] 777-3) See_Comment [Au tomated message] The system [facility] generated this result transmit diane reference range : 166 - 358 10*3/?L. The reference range was not used to interpret this result as normal/abnormal . MPV (test code = 10.8 fL 9.5-12.9 04417-9) RDW-CV (test code = 22.5 % 12.0-15.5 H 788-0) RDW-SD (test code = 62.8 fL 39.0-49.9 H 48662-9) NRBC x10^3 (test code = <0.01 See_Comment [Au tomated message] 6658127476) The system [employer] generated this result transmit diane reference range : 10*3/?L. The reference range was not used to interpret this result as normal/abnormal . NRBC/100 WBC (test code See_Comment [Au tomated message] = 5674285671) The system [facility] generated this result transmit diane reference range : 0.0 - 10.0 /100 WBC s. The reference r james was not used to interpret this result as normal/abnormal . IPF % (test code = 3420014148) Lab Interpretation (test Abnormal code = 65889-7) [facility] WITHOUT [id number] 17:58:54 Test Item Value Reference Range Interpretation Comments WBC (test code = 6690-2) See_Comment [A utomated message] The system [employer] generated this result transmit diane reference range : 4.30 - 11.10 10*3/?L. The reference range was not used to interpret this result as normal/abnormal . RBC (test code = 789-8) See_Comment L [Au tomated message] The system [employer] generated this result transmit diane reference range [...] 777-3) See_Comment [Au tomated message] The system [employer] generated this result transmit diane reference range : 166 - 358 10*3/?L. The reference range was not used to interpret this result as normal/abnormal . MPV (test code = 10.8 fL 9.5-12.9 63291-1) RDW-CV (test code = 22.5 % 12.0-15.5 H 788-0) RDW-SD (test code = 62.8 fL 39.0-49.9 H 45991-7) NRBC x10^3 (test code = <0.01 See_Comment [Au tomated message] 3993401307) The system [employer] generated this result transmit diane reference range : 10*3/?L. The reference range was not used to interpret this result as normal/abnormal . NRBC/100 WBC (test code See_Comment [Au tomated message] = 6931996916) The system [employer] generated this result transmit diane reference range : 0.0 - 10.0 /100 WBC s. The reference r james was not used to interpret this result as normal/abnormal . IPF % (test code = 2133967745) Lab Interpretation (test Abnormal code = 03270-4) [facility] METABOLIC PANEL (NA, K, CL, CO2, GLUCOSE, BUN, CREATININE, CA)2021-05-11 12:57:47 Test Item Value Reference Range Interpretation Comments NA (test code = 134 mmol/L 135-145 L 7956956264) K (test code = 3.6 mmol/L 3.5-5.0 Slight 4822993049) hemolysis CL (test code = 107 mmol/L 98-108 4992373516) CO2 TOTAL (test code 26 mmol/L 23-31 = 6562455589) AGAP (test code = 2-16 L 7023057161) BUN (test code = 6 mg/dL 7-23 L Slight 2312905461) hemolysis GLUCOSE (test code = 143 mg/dL 70-110 H 2203765232) CREATININE (test code 0.34 mg/dL 0.50-1.04 L = 4378176204) CALCIUM (test code = 7.6 mg/dL 8.6-10.6 L 4033739510) eGFR (test code = mL/min/1.73m2 6047934913) DIONI (test code = DIONI) Association of [...] tests). Lab Interpretation Abnormal (test code = 26142-8) [facility] 12:57:47 Test Item Value Reference Range Interpretation Comments MAGNESIUM (test code = 6315389697) 1.6 mg/dL 1.7-2.4 L Lab Interpretation (test code = Abnormal 52014-4) [facility] 12:57:47 Test Item Value Reference Range Interpretation Comments PHOSPHORUS (test code = 4969592600) 4.1 mg/dL 2.5-5.0 Lab Interpretation (test code = Normal 68375-5) [facility] (NA, K, CL, CO2, GLUCOSE, BUN, CREATININE, CA)2021-05-11 12:57:47 Test Item Value Reference Range Interpretation Comments NA (test code = 134 mmol/L 135-145 L 0052588724) K (test code = 3.6 mmol/L 3.5-5.0 Slight 1183502727) hemolysis CL (test code = 107 mmol/L 98-108 7362201450) CO2 TOTAL (test code 26 mmol/L 23-31 = 7792638856) AGAP (test code = 2-16 L 6134663013) BUN (test code = 6 mg/dL 7-23 L Slight 7593226705) hemolysis GLUCOSE (test code = 143 mg/dL 70-110 H 2017358483) CREATININE (test code 0.34 mg/dL 0.50-1.04 L = 4459317385) CALCIUM (test code = 7.6 mg/dL 8.6-10.6 L 8102264194) eGFR (test code = mL/min/1.73m2 9770371970) DIONI (test code = DIONI) Association of [...] tests). Lab Interpretation Abnormal (test code = 64068-9) [facility] Test Item Value Reference Range Interpretation Comments MAGNESIUM (test code = 7042983861) 1.6 mg/dL 1.7-2.4 L Lab Interpretation (test code = Abnormal 00665-8) [facility] 12:57:47 Test Item Value Reference Range Interpretation Comments PHOSPHORUS (test code = 2417598697) 4.1 mg/dL 2.5-5.0 Lab Interpretation (test code = Normal 34250-2) [facility] [id number] 11:09:36 Test Item Value Reference Range Interpretation [...] (test code = 62.3 fL 39.0-49.9 H 65258-9) RDW-CV (test code = 23.4 % 12.0-15.5 H 788-0) PLT (test code = See_Comment H [Automated 777-3) message] The sy stem which generated this result transmitted reference range : 166 - 358 10*3/ ?L. The reference r james was not used to interpret this result as normal/abnormal . MPV (test code = 10.8 fL 9.5-12.9 60966-3) NRBC/100 WBC (test See_Comment [Automat ed code = 5088743118) message] The system which generated this result transmitted reference range : 0.0 - 10.0 /100 WBCs. The refer ence range was not u sed to interpret th is result as normal/abnormal . NRBC x10^3 (test code <0.01 See_Comment [Auto mated = 5859276908) message] The s ystem which generated this result transmitted reference range : 10*3/?L. The reference range was not used to interpret this result as normal/abnormal . GRAN MAT (NEUT) % 77.1 % (test code = 770-8) IMM GRAN % (test code 0.50 % = 3552512991) LYMPH % (test code = 14.1 % 736-9) MONO % (test code = 7.4 % 5905-5) EOS % (test code = 0.6 % 713-8) BASO % (test code = 0.3 % 706-2) GRAN MAT x10^3(ANC) 8.91 10*3/uL 1.88-7.09 H (test code = 3252449168) IMM GRAN x10^3 (test 0.06 10*3/uL 0.00-0.06 code = 5368868714) LYMPH x10^3 (test code 1.63 10*3/uL 1.32-3.29 = 731-0) MONO x10^3 (test code 0.86 10*3/uL 0.33-0.92 = 742-7) EOS x10^3 (test code = 0.07 10*3/uL 0.03-0.39 711-2) BASO x10^3 (test code 0.03 10*3/uL 0.01-0.07 = 704-7) Lab Interpretation Abnormal (test code = 34558-6) [facility] WITH [id number] 11:09:36 Test Item Value Reference Range Interpretation [...] (test code = 62.3 fL 39.0-49.9 H 19288-9) RDW-CV (test code = 23.4 % 12.0-15.5 H 788-0) PLT (test code = See_Comment H [Automated 777-3) message] The sy stem which generated this result transmitted reference range : 166 - 358 10*3/ ?L. The reference r james was not used to interpret this result as normal/abnormal . MPV (test code = 10.8 fL 9.5-12.9 33453-9) NRBC/100 WBC (test See_Comment [Automat ed code = 5870058468) message] The system which generated this result transmitted reference range : 0.0 - 10.0 /100 WBCs. The refer ence range was not u sed to interpret th is result as normal/abnormal . NRBC x10^3 (test code <0.01 See_Comment [Auto mated = 5615645031) message] The s ystem which generated this result transmitted reference range : 10*3/?L. The reference range was not used to interpret this result as normal/abnormal . GRAN MAT (NEUT) % 77.1 % (test code = 770-8) IMM GRAN % (test code 0.50 % = 6096693827) LYMPH % (test code = 14.1 % 736-9) MONO % (test code = 7.4 % 5905-5) EOS % (test code = 0.6 % 713-8) BASO % (test code = 0.3 % 706-2) GRAN MAT x10^3(ANC) 8.91 10*3/uL 1.88-7.09 H (test code = 0077748805) IMM GRAN x10^3 (test 0.06 10*3/uL 0.00-0.06 code = 4555078386) LYMPH x10^3 (test code 1.63 10*3/uL 1.32-3.29 = 731-0) MONO x10^3 (test code 0.86 10*3/uL 0.33-0.92 = 742-7) EOS x10^3 (test code = 0.07 10*3/uL 0.03-0.39 711-2) BASO x10^3 (test code 0.03 10*3/uL 0.01-0.07 = 704-7) Lab Interpretation Abnormal (test code = 36761-7) [facility] WITHOUT [id number] 03:04:51 Test Item Value Reference Range Interpretation Comments WBC (test code = 6690-2) See_Comment [A utomated message] The system [employer] generated this result transmit diane reference range : 4.30 - 11.10 10*3/?L. The reference range was not used to interpret this result as normal/abnormal . RBC (test code = 789-8) See_Comment L [Au tomated message] The system [employer] generated this result transmit diane reference range [...] See_Comment H [Au tomated message] The system [employer] generated this result transmit diane reference range : 166 - 358 10*3/?L. The reference range was not used to interpret this result as normal/abnormal . MPV (test code = 10.5 fL 9.5-12.9 09869-4) RDW-CV (test code = 22.2 % 12.0-15.5 H 788-0) RDW-SD (test code = 59.2 fL 39.0-49.9 H 87271-6) NRBC x10^3 (test code = <0.01 See_Comment [Au tomated message] 9934286858) The system [facility] generated this result transmit diane reference range : 10*3/?L. The reference range was not used to interpret this result as normal/abnormal . NRBC/100 WBC (test code See_Comment [Au tomated message] = 8159419902) The system [facility] generated this result transmit diane reference range : 0.0 - 10.0 /100 WBC s. The reference r james was not used to interpret this result as normal/abnormal . IPF % (test code = 2533057837) Lab Interpretation (test Abnormal code = 94288-2) [facility] WITHOUT [id number] 03:04:51 Test Item Value Reference Range Interpretation Comments WBC (test code = 6690-2) See_Comment [A utomated message] The system [facility] generated this result transmit diane reference range : 4.30 - 11.10 10*3/?L. The reference range was not used to interpret this result as normal/abnormal . RBC (test code = 789-8) See_Comment L [Au tomated message] The system [facility] generated this result transmit diane [...] See_Comment H [Au tomated message] The system [facility] generated this result transmit diane reference range : 166 - 358 10*3/?L. The reference range was not used to interpret this result as normal/abnormal . MPV (test code = 10.5 fL 9.5-12.9 18396-0) RDW-CV (test code = 22.2 % 12.0-15.5 H 788-0) RDW-SD (test code = 59.2 fL 39.0-49.9 H 41649-5) NRBC x10^3 (test code = <0.01 See_Comment [Au tomated message] 1381960288) The system [facility] generated this result transmit diane reference range : 10*3/?L. The reference range was not used to interpret this result as normal/abnormal . NRBC/100 WBC (test code See_Comment [Au tomated message] = 3165014787) The system [facility] generated this result transmit diane reference range : 0.0 - 10.0 /100 WBC s. The reference r james was not used to interpret this result as normal/abnormal . IPF % (test code = 5409146927) Lab Interpretation (test Abnormal code = 39180-3) [facility] WITHOUT [id number] 15:35:17 Test Item Value Reference Range Interpretation Comments WBC (test code = 6690-2) See_Comment [A utomated message] The system [facility] generated this result transmit diane reference range : 4.30 - 11.10 10*3/?L. The reference range was not used to interpret this result as normal/abnormal . RBC (test code = 789-8) See_Comment L [Au tomated message] The system [facility] generated this result transmit diane [...] See_Comment H [Au tomated message] The system [facility] generated this result transmit diane reference range : 166 - 358 10*3/?L. The reference range was not used to interpret this result as normal/abnormal . MPV (test code = 10.8 fL 9.5-12.9 36751-9) RDW-CV (test code = 21.4 % 12.0-15.5 H 788-0) RDW-SD (test code = 58.6 fL 39.0-49.9 H 04464-1) NRBC x10^3 (test code = <0.01 See_Comment [Au tomated message] 4533764022) The system [facility] generated this result transmit diane reference range : 10*3/?L. The reference range was not used to interpret this result as normal/abnormal . NRBC/100 WBC (test code See_Comment [Au tomated message] = 7268677974) The system [facility] generated this result transmit diane reference range : 0.0 - 10.0 /100 WBC s. The reference r james was not used to interpret this result as normal/abnormal . IPF % (test code = 9534185190) Lab Interpretation (test Abnormal code = 31064-8) [facility] WITHOUT [id number] 15:35:17 Test Item Value Reference Range Interpretation Comments WBC (test code = 6690-2) See_Comment [A utomated message] The system [facility] generated this result transmit diane reference range : 4.30 - 11.10 10*3/?L. The reference range was not used to interpret this result as normal/abnormal . RBC (test code = 789-8) See_Comment L [Au tomated message] The system [facility] generated this result transmit diane [...] See_Comment H [Au tomated message] The system [facility] generated this result transmit diane reference range : 166 - 358 10*3/?L. The reference range was not used to interpret this result as normal/abnormal . MPV (test code = 10.8 fL 9.5-12.9 01538-0) RDW-CV (test code = 21.4 % 12.0-15.5 H 788-0) RDW-SD (test code = 58.6 fL 39.0-49.9 H 91052-0) NRBC x10^3 (test code = <0.01 See_Comment [Au tomated message] 7677918358) The system [facility] generated this result transmit diane reference range : 10*3/?L. The reference range was not used to interpret this result as normal/abnormal . NRBC/100 WBC (test code See_Comment [Au tomated message] = 9419745778) The system [facility] generated this result transmit diane reference range : 0.0 - 10.0 /100 WBC s. The reference r james was not used to interpret this result as normal/abnormal . IPF % (test code = 2229770395) Lab Interpretation (test Abnormal code = 94025-0) [facility] METABOLIC PANEL (NA, K, CL, CO2, GLUCOSE, BUN, CREATININE, CA)2021-05-10 08:13:11 Test Item Value Reference Range Interpretation Comments NA (test code = 138 mmol/L 135-145 6619819875) K (test code = 4.0 mmol/L 3.5-5.0 8482731457) CL (test code = 109 mmol/L 98-108 H 4244716745) CO2 TOTAL (test code = 27 mmol/L 23-31 8594367434) AGAP (test code = 2-16 4804072411) BUN (test code = 6 mg/dL 7-23 L 3598596239) GLUCOSE (test code = 93 mg/dL 70-110 6094193394) CREATININE (test code = 0.39 mg/dL 0.50-1.04 L 8938081080) CALCIUM (test code = 8.1 mg/dL 8.6-10.6 L 1050507654) eGFR (test code = mL/min/1.73m2 2478144897) DIONI (test code = DIONI) Association of [...] tests). Lab Interpretation Abnormal (test code = 74640-8) [facility]11 Test Item Value Reference Range Interpretation Comments MAGNESIUM (test code = 2941488292) 1.8 mg/dL 1.7-2.4 Lab Interpretation (test code = Normal 36325-5) [facility] METABOLIC PANEL (NA, K, CL, CO2, GLUCOSE, BUN, CREATININE, CA)2021-05-10 08:13:11 Test Item Value Reference Range Interpretation Comments NA (test code = 138 mmol/L 135-145 1804555026) K (test code = 4.0 mmol/L 3.5-5.0 6848998274) CL (test code = 109 mmol/L 98-108 H 1068415430) CO2 TOTAL (test code = 27 mmol/L 23-31 4351701499) AGAP (test code = 2-16 6835584045) BUN (test code = 6 mg/dL 7-23 L 3894525552) GLUCOSE (test code = 93 mg/dL 70-110 0531323887) CREATININE (test code = 0.39 mg/dL 0.50-1.04 L 2541551513) CALCIUM (test code = 8.1 mg/dL 8.6-10.6 L 0105377292) eGFR (test code = mL/min/1.73m2 5219503116) DIONI (test code = DIONI) Association of [...] tests). Lab Interpretation Abnormal (test code = 77671-3) [facility]13:11 Test Item Value Reference Range Interpretation Comments MAGNESIUM (test code = 9907352137) 1.8 mg/dL 1.7-2.4 Lab Interpretation (test code = Normal 95495-0) [facility] [id number] 07:52:13 Test Item Value Reference Range Interpretation [...] (test code = 57.6 fL 39.0-49.9 H 00260-8) RDW-CV (test code = 21.1 % 12.0-15.5 H 788-0) PLT (test code = See_Comment H [Automated 777-3) message] The sy stem which generated this result transmitted reference range : 166 - 358 10*3/ ?L. The reference r james was not used to interpret this result as normal/abnormal . MPV (test code = 10.2 fL 9.5-12.9 56630-2) NRBC/100 WBC (test See_Comment [Automat ed code = 4330599001) message] The system which generated this result transmitted reference range : 0.0 - 10.0 /100 WBCs. The refer ence range was not u sed to interpret th is result as normal/abnormal . NRBC x10^3 (test code <0.01 See_Comment [Auto mated = 0986973748) message] The s ystem which generated this result transmitted reference range : 10*3/?L. The reference range was not used to interpret this result as normal/abnormal . GRAN MAT (NEUT) % 75.1 % (test code = 770-8) IMM GRAN % (test code 0.60 % = 2844718709) LYMPH % (test code = 13.2 % 736-9) MONO % (test code = 10.2 % 5905-5) EOS % (test code = 0.7 % 713-8) BASO % (test code = 0.2 % 706-2) GRAN MAT x10^3(ANC) 7.33 10*3/uL 1.88-7.09 H (test code = 1132579547) IMM GRAN x10^3 (test 0.06 10*3/uL 0.00-0.06 code = 2171565083) LYMPH x10^3 (test code 1.29 10*3/uL 1.32-3.29 L = 731-0) MONO x10^3 (test code 1.00 10*3/uL 0.33-0.92 H = 742-7) EOS x10^3 (test code = 0.07 10*3/uL 0.03-0.39 711-2) BASO x10^3 (test code <0.03 0.01-0.07 = 704-7) Lab Interpretation Abnormal (test code = 29234-9) [facility] WITH [id number] 07:52:13 Test Item Value Reference Range Interpretation [...] (test code = 57.6 fL 39.0-49.9 H 30388-5) RDW-CV (test code = 21.1 % 12.0-15.5 H 788-0) PLT (test code = See_Comment H [Automated 777-3) message] The sy stem which generated this result transmitted reference range : 166 - 358 10*3/ ?L. The reference r james was not used to interpret this result as normal/abnormal . MPV (test code = 10.2 fL 9.5-12.9 56424-4) NRBC/100 WBC (test See_Comment [Automat ed code = 3559046763) message] The system which generated this result transmitted reference range : 0.0 - 10.0 /100 WBCs. The refer ence range was not u sed to interpret th is result as normal/abnormal . NRBC x10^3 (test code <0.01 See_Comment [Auto mated = 9245490252) message] The s ystem which generated this result transmitted reference range : 10*3/?L. The reference range was not used to interpret this result as normal/abnormal . GRAN MAT (NEUT) % 75.1 % (test code = 770-8) IMM GRAN % (test code 0.60 % = 6004016584) LYMPH % (test code = 13.2 % 736-9) MONO % (test code = 10.2 % 5905-5) EOS % (test code = 0.7 % 713-8) BASO % (test code = 0.2 % 706-2) GRAN MAT x10^3(ANC) 7.33 10*3/uL 1.88-7.09 H (test code = 5020827715) IMM GRAN x10^3 (test 0.06 10*3/uL 0.00-0.06 code = 6730494486) LYMPH x10^3 (test code 1.29 10*3/uL 1.32-3.29 L = 731-0) MONO x10^3 (test code 1.00 10*3/uL 0.33-0.92 H = 742-7) EOS x10^3 (test code = 0.07 10*3/uL 0.03-0.39 711-2) BASO x10^3 (test code <0.03 0.01-0.07 = 704-7) Lab Interpretation Abnormal (test code = 27471-2) [facility] WITHOUT [id number] 02:12:36 Test Item Value Reference Range Interpretation Comments WBC (test code = 6690-2) See_Comment [A utomated message] The system [employer] generated this result transmit diane reference range : 4.30 - 11.10 10*3/?L. The reference range was not used to interpret this result as normal/abnormal . RBC (test code = 789-8) See_Comment L [Au tomated message] The system [employer] generated this result transmit diane reference range [...] See_Comment H [Au tomated message] The system [facility] generated this result transmit diane reference range : 166 - 358 10*3/?L. The reference range was not used to interpret this result as normal/abnormal . MPV (test code = 10.1 fL 9.5-12.9 77388-4) RDW-CV (test code = 21.2 % 12.0-15.5 H 788-0) RDW-SD (test code = 59.3 fL 39.0-49.9 H 48547-5) NRBC x10^3 (test code = <0.01 See_Comment [Au tomated message] 1601997020) The system [facility] generated this result transmit diane reference range : 10*3/?L. The reference range was not used to interpret this result as normal/abnormal . NRBC/100 WBC (test code See_Comment [Au tomated message] = 8431231927) The system [facility] generated this result transmit diane reference range : 0.0 - 10.0 /100 WBC s. The reference r james was not used to interpret this result as normal/abnormal . IPF % (test code = 2132056561) Lab Interpretation (test Abnormal code = 54776-9) [facility] WITHOUT [id number] 02:12:36 Test Item Value Reference Range Interpretation Comments WBC (test code = 6690-2) See_Comment [A utomated message] The system [employer] generated this result transmit diane reference range : 4.30 - 11.10 10*3/?L. The reference range was not used to interpret this result as normal/abnormal . RBC (test code = 789-8) See_Comment L [Au tomated message] The system [facility] generated this result transmit diane [...] See_Comment H [Au tomated message] The system [employer] generated this result transmit diane reference range : 166 - 358 10*3/?L. The reference range was not used to interpret this result as normal/abnormal . MPV (test code = 10.1 fL 9.5-12.9 55119-2) RDW-CV (test code = 21.2 % 12.0-15.5 H 788-0) RDW-SD (test code = 59.3 fL 39.0-49.9 H 72546-8) NRBC x10^3 (test code = <0.01 See_Comment [Au tomated message] 1512958703) The system [employer] generated this result transmit diane reference range : 10*3/?L. The reference range was not used to interpret this result as normal/abnormal . NRBC/100 WBC (test code See_Comment [Au tomated message] = 5322007623) The system [employer] generated this result transmit diane reference range : 0.0 - 10.0 /100 WBC s. The reference r james was not used to interpret this result as normal/abnormal . IPF % (test code = 3655129401) Lab Interpretation (test Abnormal code = 97527-3) [facility] METABOLIC PANEL (NA, K, CL, CO2, GLUCOSE, BUN, CREATININE, CA)2021-05-09 13:58:08 Test Item Value Reference Range Interpretation Comments NA (test code = 137 mmol/L 135-145 7757699043) K (test code = 4.3 mmol/L 3.5-5.0 5628952665) CL (test code = 110 mmol/L 98-108 H 3651958407) CO2 TOTAL (test code = 30 mmol/L 23-31 6142972428) AGAP (test code = <1 2-16 L 7014622039) BUN (test code = 4 mg/dL 7-23 L 9914657908) GLUCOSE (test code = 90 mg/dL 70-110 1662068111) CREATININE (test code = 0.41 mg/dL 0.50-1.04 L 3124165840) CALCIUM (test code = 8.0 mg/dL 8.6-10.6 L 5105027173) eGFR (test code = mL/min/1.73m2 8643441845) DIONI (test code = DIONI) Association of [...] tests). Lab Interpretation Abnormal (test code = 81069-5) [facility] (NA, K, CL, CO2, GLUCOSE, BUN, CREATININE, CA)2021-05-09 13:58:08 Test Item Value Reference Range Interpretation Comments NA (test code = 137 mmol/L 135-145 0484785105) K (test code = 4.3 mmol/L 3.5-5.0 0393867761) CL (test code = 110 mmol/L 98-108 H 3411903207) CO2 TOTAL (test code = 30 mmol/L 23-31 6749969906) AGAP (test code = <1 2-16 L 4401617943) BUN (test code = 4 mg/dL 7-23 L 1164879950) GLUCOSE (test code = 90 mg/dL 70-110 1855854276) CREATININE (test code = 0.41 mg/dL 0.50-1.04 L 5063043896) CALCIUM (test code = 8.0 mg/dL 8.6-10.6 L 0835543416) eGFR (test code = mL/min/1.73m2 0141361690) DIONI (test code = DIONI) Association of [...] tests). Lab Interpretation Abnormal (test code = 36491-8) [facility] WITH [id number] 10:47:39 Test Item Value Reference Range Interpretation Comments WBC (test code = See_Comment [Automated 9390-2) message] The sy stem which generated this [...] (test code = 57.0 fL 39.0-49.9 H 97836-0) RDW-CV (test code = 21.2 % 12.0-15.5 H 788-0) PLT (test code = See_Comment H [Automated 777-3) message] The sy stem which generated this result transmitted reference range : 166 - 358 10*3/ ?L. The reference r james was not used to interpret this result as normal/abnormal . MPV (test code = 10.2 fL 9.5-12.9 14971-8) NRBC/100 WBC (test See_Comment [Automat ed code = 6957951342) message] The system which generated this result transmitted reference range : 0.0 - 10.0 /100 WBCs. The refer ence range was not u sed to interpret th is result as normal/abnormal . NRBC x10^3 (test code <0.01 See_Comment [Auto mated = 0139783216) message] The s ystem which generated this result transmitted reference range : 10*3/?L. The reference range was not used to interpret this result as normal/abnormal . GRAN MAT (NEUT) % 68.4 % (test code = 770-8) IMM GRAN % (test code 0.70 % = 8404559360) LYMPH % (test code = 18.5 % 736-9) MONO % (test code = 11.1 % 5905-5) EOS % (test code = 1.1 % 713-8) BASO % (test code = 0.2 % 706-2) GRAN MAT x10^3(ANC) 5.79 10*3/uL 1.88-7.09 (test code = 5797727244) IMM GRAN x10^3 (test 0.06 10*3/uL 0.00-0.06 code = 7503550176) LYMPH x10^3 (test code 1.57 10*3/uL 1.32-3.29 = 731-0) MONO x10^3 (test code 0.94 10*3/uL 0.33-0.92 H = 742-7) EOS x10^3 (test code = 0.09 10*3/uL 0.03-0.39 711-2) BASO x10^3 (test code <0.03 0.01-0.07 = 704-7) Lab Interpretation Abnormal (test code = 60691-8) [facility] WITH [id number] 10:47:39 Test Item Value Reference Range Interpretation [...] (test code = 57.0 fL 39.0-49.9 H 35319-4) RDW-CV (test code = 21.2 % 12.0-15.5 H 788-0) PLT (test code = See_Comment H [Automated 777-3) message] The sy stem which generated this result transmitted reference range : 166 - 358 10*3/ ?L. The reference r james was not used to interpret this result as normal/abnormal . MPV (test code = 10.2 fL 9.5-12.9 51937-1) NRBC/100 WBC (test See_Comment [Automat ed code = 8780779178) message] The system which generated this result transmitted reference range : 0.0 - 10.0 /100 WBCs. The refer ence range was not u sed to interpret th is result as normal/abnormal . NRBC x10^3 (test code <0.01 See_Comment [Auto mated = 3015842984) message] The s ystem which generated this result transmitted reference range : 10*3/?L. The reference range was not used to interpret this result as normal/abnormal . GRAN MAT (NEUT) % 68.4 % (test code = 770-8) IMM GRAN % (test code 0.70 % = 0729162815) LYMPH % (test code = 18.5 % 736-9) MONO % (test code = 11.1 % 5905-5) EOS % (test code = 1.1 % 713-8) BASO % (test code = 0.2 % 706-2) GRAN MAT x10^3(ANC) 5.79 10*3/uL 1.88-7.09 (test code = 2311362959) IMM GRAN x10^3 (test 0.06 10*3/uL 0.00-0.06 code = 1271285706) LYMPH x10^3 (test code 1.57 10*3/uL 1.32-3.29 = 731-0) MONO x10^3 (test code 0.94 10*3/uL 0.33-0.92 H = 742-7) EOS x10^3 (test code = 0.09 10*3/uL 0.03-0.39 711-2) BASO x10^3 (test code <0.03 0.01-0.07 = 704-7) Lab Interpretation Abnormal (test code = 35930-9) [facility]50 Test Item Value Reference Range Interpretation Comments FOLATE SER (test code = 13.2 ng/mL 3.0-20.0 8477008929) Lab Interpretation (test code = Normal 87074-3) [facility] 08:52:50 Test Item Value Reference Range Interpretation Comments FOLATE SER (test code = 13.2 ng/mL 3.0-20.0 0435063818) Lab Interpretation (test code = Normal 09657-0) [facility] [id number] 07:24:13 Test Item Value Reference Range Interpretation Comments HCV Ab (test code = Positive 41036-2) HCV Semi-Quantitative (test code = 91172-7) APRI (test code = 8732224429) DIONI (test code = Positive for HCV antibody DIONI) with a high signal to cutoff ratio (s/c). ?Supplementary test for Hepatitis C Virus RNA Real-Time PCR is recommended if clinically indicated. ?If any questions, please contact Clinical Chemistry Director composition weatherboard installer at [phone].APRI score < 0.5: Suggestive of little to no fibrosisAPRI score > 1.5: Suggestive of moderate to severe fibrosisAPRI score > 2.0: Highly suggestive of cirrhosis. [facility] [id number] 07:24:13 Test Item Value Reference Range Interpretation Comments HCV Ab (test code = Positive 70973-8) HCV Semi-Quantitative (test code = 86967-9) APRI (test code = 1408051099) DIONI (test code = Positive for HCV antibody DIONI) with a high signal to cutoff ratio (s/c). ?Supplementary test for Hepatitis C Virus RNA Real-Time PCR is recommended if clinically indicated. ?If any questions, please contact Clinical Chemistry Director composition weatherboard installer at [phone].APRI score < 0.5: Suggestive of little to no fibrosisAPRI score > 1.5: Suggestive of moderate to severe fibrosisAPRI score > 2.0: Highly suggestive of cirrhosis. [facility]IT[facility] B12, [id number] 06:24:56 Test Item Value Reference Range Interpretation Comments VIT B12 (test code = 731 pg/mL 240-930 4455318982) DIONI (test code = DIONI) Biotin has been reported to cause a positive bias, interpret results relative to patient's use of biotin. Lab Interpretation (test Normal code = 97418-9) [facility] B12, [id number] 06:24:56 Test Item Value Reference Range Interpretation Comments VIT B12 (test code = 731 pg/mL 240-930 7588459192) DIONI (test code = DIONI) Biotin has been reported to cause a positive bias, interpret results relative to patient's use of biotin. Lab Interpretation (test Normal code = 86569-8) [facility] Packed RBC (in units), 1 Units 2021-05-09 06:24:21 Test Item Value Reference Range Interpretation Comments Cross Match Result Compatible (test code = 4409) ISBT Blood Type Code (test code = 680483) Unit Blood Type (test O Pos code = 4410) Unit Number (test [id number] code = 4411) Blood Expiration Date & Time (test code = 705861) Status Information Issued (test code = 4412) Product Red Blood Cells Identification (test code = 4413) Product Code (test B8415F55 Performed at [facility] code = 4414) Laboratory Services [facility] Blood [address] [address]Unkf Free: [phone] A No. [id number] [facility] (in units), 1 Units 2021-05-09 06:24:21 Test Item Value Reference Range Interpretation Comments Cross Match Result Compatible (test code = 4409) ISBT Blood Type Code (test code = 999556) Unit Blood Type (test O Pos code = 4410) Unit Number (test [id number] code = 4411) Blood Expiration Date & Time (test code = 144173) Status Information Issued (test code = 4412) Product Red Blood Cells Identification (test code = 4413) Product Code (test [id number] Performed at [facility] code = 4414) Laboratory Services - [facility] Blood [address] [address]Yaih Free: [phone] A No. [id number] [facility] 06:22:55 Test Item Value Reference Range Interpretation Comments MAGNESIUM (test code = 7072108244) 1.8 mg/dL 1.7-2.4 Lab Interpretation (test code = Normal 90853-8) [facility] Test Item Value Reference Range Interpretation Comments MAGNESIUM (test code = 4794808262) 1.8 mg/dL 1.7-2.4 Lab Interpretation (test code = Normal 62613-4) [facility]ERR[facility] [id number] 06:06:47 Test Item Value Reference Range Interpretation Comments FERRITIN (test code = 64.4 ng/mL 11.0-264.0 0556774196) DIONI (test code = DIONI) Biotin has been reported to cause a negative bias, interpret results relative to patient's use of biotin. Lab Interpretation (test Normal code = 85963-1) [facility] [id number] 06:06:47 Test Item Value Reference Range Interpretation Comments FERRITIN (test code = 64.4 ng/mL 11.0-264.0 3958034741) DIONI (test code = DIONI) Biotin has been reported to cause a negative bias, interpret results relative to patient's use of biotin. Lab Interpretation (test Normal code = 50569-4) [facility] and Screen - ONCE [id number] 06:01:50 Test Item Value Reference Range Interpretation Comments ABO & RH (test code O POSITIVE Performe d at [facility] = 20) Laboratory Serv [facility] Blood Bank[address] [facility] s [address]Pjgs Free: [phone] A No. [id number] IAT (test code = Negative Performed a t [facility] 1185) Laboratory Serv [facility] Blood Bank[address] [facility] s [address]Vwqk Free: [phone] A No. [id number] [facility] and Screen - ONCE [id number] 06:01:50 Test Item Value Reference Range Interpretation Comments ABO & RH (test code O POSITIVE Performe d at [facility] = 20) Laboratory Serv [facility] Blood Bank[facility] [address] [facility] s [address]Gioy Free: [phone] A No. [id number] IAT (test code = Negative Performed a t [facility] 1185) Laboratory Serv [facility] Blood [facility] [facility] s [address]Sssq Free: [phone] A No. [id number] [facility] [id number] 05:42:49 Test Item Value Reference Range Interpretation Comments IRON (test code = 6001743586) 36 ug/dL 50-160 L TIBC (test code = 9966448213) 305 ug/dL 250-410 % FE SAT (test code = 2717074011) 12 % 20-50 L Lab Interpretation (test code = Abnormal 27782-6) [facility] [id number] 05:42:49 Test Item Value Reference Range Interpretation Comments IRON (test code = 4309455712) 36 ug/dL 50-160 L TIBC (test code = 5950351737) 305 ug/dL 250-410 % FE SAT (test code = 1167955670) 12 % 20-50 L Lab Interpretation (test code = Abnormal 31466-5) [facility] METABOLIC PANEL (NA, K, CL, CO2, GLUCOSE, BUN, CREATININE, CA)2021-05-09 05:24:44 Test Item Value Reference Range Interpretation Comments NA (test code = 134 mmol/L 135-145 L 8819139848) K (test code = 2.9 mmol/L 3.5-5.0 LL 7344330135) CL (test code = 104 mmol/L 98-108 5671951689) CO2 TOTAL (test code = 26 mmol/L 23-31 1395482223) AGAP (test code = 2-16 7088265426) BUN (test code = 6 mg/dL 7-23 L 9758610643) GLUCOSE (test code = 120 mg/dL 70-110 H 8807339206) CREATININE (test code = 0.39 mg/dL 0.50-1.04 L 7950758888) CALCIUM (test code = 7.9 mg/dL 8.6-10.6 L 5127604595) eGFR (test code = mL/min/1.73m2 2410969708) DIONI (test code = DIONI) Association of [...] tests). Lab Interpretation Abnormal (test code = 82968-4) [facility] (NA, K, CL, CO2, GLUCOSE, BUN, CREATININE, CA)2021-05-09 05:24:44 Test Item Value Reference Range Interpretation Comments NA (test code = 134 mmol/L 135-145 L 8226071611) K (test code = 2.9 mmol/L 3.5-5.0 LL 0169071206) CL (test code = 104 mmol/L 98-108 5416416505) CO2 TOTAL (test code = 26 mmol/L 23-31 9746529718) AGAP (test code = 2-16 3398739922) BUN (test code = 6 mg/dL 7-23 L 6707389906) GLUCOSE (test code = 120 mg/dL 70-110 H 1364072172) CREATININE (test code = 0.39 mg/dL 0.50-1.04 L 3713518061) CALCIUM (test code = 7.9 mg/dL 8.6-10.6 L 5966886795) eGFR (test code = mL/min/1.73m2 1965169799) DIONI (test code = DIONI) Association of [...] tests). Lab Interpretation Abnormal (test code = 82072-2) [facility] [id number] 05:16:46 Test Item Value Reference Interpretation Comments Range TROPONIN I (test 0.323 ng/mL See_Comment H [Automated code = 3629616110) message] The system which generated this result [...] biotin. Lab Interpretation Abnormal (test code = 65265-7) [facility] [id number] 05:16:46 Test Item Value Reference Interpretation Comments Range TROPONIN I (test 0.323 ng/mL See_Comment H [Automated code = 8821257118) message] The system which generated this result [...] biotin. Lab Interpretation Abnormal (test code = 54380-4) [facility] Center[facility]th[facility] Time / [id number] 05:03:22 Test Item Value Reference Range Interpretation Comments PROTIME PATIENT (test See_Comment H [Auto mated message] code = 5964-2) The system wh ich generated this result transmitted ref erence range: 10.1 - 1 2.6 Seconds. The reference range was not used to int erpret this result as normal/abnormal . INR (test code = 6301-6) Nor mal INR <1.1; Warfarin Therap eutic range 2.0 to 3. 0 or 2.5 to 3.5, dep ending upon the indica tions. Lab Interpretation (test Abnormal code = 54803-9) [facility]PTT2021-[facility] 05:03:22 Test Item Value Reference Range Interpretation Comments APTT Patient (test code = See_Comment [ Automated message] 3173-2) The system [employer] generated this result transmitted ref erence range: 26 - 36 Seconds. The re ference range was not u sed to interpret this result as normal/abnor mal. Lab Interpretation (test Normal code = 03657-3) [facility] Test Item Value Reference Range Interpretation Comments Fibrinogen (test code = 6851469612) 325 mg/dL 167-453 Lab Interpretation (test code = Normal 76028-6) [facility] Center[facility]th[facility] Time / [id number] 05:03:22 Test Item Value Reference Range Interpretation Comments PROTIME PATIENT (test See_Comment H [Auto mated message] code = 5964-2) The system [employer] generated this result transmitted ref erence range: 10.1 - 1 2.6 Seconds. The reference range was not used to int erpret this result as normal/abnormal . INR (test code = 6301-6) Nor mal INR <1.1; Warfarin Therap eutic range 2.0 to 3. 0 or 2.5 to 3.5, dep ending upon the indica tions. Lab Interpretation (test Abnormal code = 50051-3) [facility] Test Item Value Reference Range Interpretation Comments APTT Patient (test code = See_Comment [ Automated message] 3173-2) The system [employer] generated this result transmitted ref erence range: 26 - 36 Seconds. The re ference range was not u sed to interpret this result as normal/abnor mal. Lab Interpretation (test Normal code = 93044-0) [facility] Test Item Value Reference Range Interpretation Comments Fibrinogen (test code = 4811344614) 325 mg/dL 167-453 Lab Interpretation (test code = Normal 48147-6) [facility]85[facility] (ALB,T.PRO,BILI T,BU/BC,ALT,AST,ALK PHOS)2021-05-09 05:02:01 Test Item Value Reference Range Interpretation Comments TOTAL BILI (test code = 4564865984) 1.0 mg/dL 0.1-1.1 BILI UNCON (test code = 2905943051) 0.6 mg/dL 0.1-1.1 BILI CONJ (test code = 1314665517) 0.0 mg/dL 0.0-0.3 T PROTEIN (test code = 1695282116) 6.2 g/dL 6.3-8.2 L ALBUMIN (test code = 2543827324) 2.9 g/dL 3.5-5.0 L ALK PHOS (test code = 3282883258) 62 U/L 34-122 ALTv (test code = 1742-6) 28 U/L 5-35 AST(SGOT) (test code = 8426938337) 54 U/L 13-40 H Lab Interpretation (test code = Abnormal 02900-6) [facility]87[facility] (ALB,T.PRO,BILI T,BU/BC,ALT,AST,ALK PHOS)2021-05-09 05:02:01 Test Item Value Reference Range Interpretation Comments TOTAL BILI (test code = 5284336248) 1.0 mg/dL 0.1-1.1 BILI UNCON (test code = 9871675872) 0.6 mg/dL 0.1-1.1 BILI CONJ (test code = 5885342137) 0.0 mg/dL 0.0-0.3 T PROTEIN (test code = 2178836827) 6.2 g/dL 6.3-8.2 L ALBUMIN (test code = 0573350812) 2.9 g/dL 3.5-5.0 L ALK PHOS (test code = 9565526145) 62 U/L 34-122 ALTv (test code = 1742-6) 28 U/L 5-35 AST(SGOT) (test code = 2333154269) 54 U/L 13-40 H Lab Interpretation (test code = Abnormal 91707-1) [facility] WITH [id number] 04:54:02 Test Item Value Reference Range Interpretation [...] (test code = 57.2 fL 39.0-49.9 H 54441-6) RDW-CV (test code = 22.0 % 12.0-15.5 H 788-0) PLT (test code = See_Comment H [Automated 777-3) message] The sy stem which generated this result transmitted reference range : 166 - 358 10*3/ ?L. The reference r james was not used to interpret this result as normal/abnormal . MPV (test code = 10.4 fL 9.5-12.9 37940-0) NRBC/100 WBC (test See_Comment [Automat ed code = 7980553647) message] The system which generated this result transmitted reference range : 0.0 - 10.0 /100 WBCs. The refer ence range was not u sed to interpret th is result as normal/abnormal . NRBC x10^3 (test code <0.01 See_Comment [Auto mated = 8975316088) message] The s ystem which generated this result transmitted reference range : 10*3/?L. The reference range was not used to interpret this result as normal/abnormal . GRAN MAT (NEUT) % 71.7 % (test code = 770-8) IMM GRAN % (test code 0.60 % = 4354852928) LYMPH % (test code = 16.7 % 736-9) MONO % (test code = 10.0 % 5905-5) EOS % (test code = 0.8 % 713-8) BASO % (test code = 0.2 % 706-2) GRAN MAT x10^3(ANC) 6.26 10*3/uL 1.88-7.09 (test code = 7992844453) IMM GRAN x10^3 (test 0.05 10*3/uL 0.00-0.06 code = 2842765577) LYMPH x10^3 (test code 1.46 10*3/uL 1.32-3.29 = 731-0) MONO x10^3 (test code 0.87 10*3/uL 0.33-0.92 = 742-7) EOS x10^3 (test code = 0.07 10*3/uL 0.03-0.39 711-2) BASO x10^3 (test code <0.03 0.01-0.07 = 704-7) Lab Interpretation Abnormal (test code = 36460-6) [facility] WITH [id number] 04:54:02 Test Item Value Reference Range Interpretation Comments WBC (test code = See_Comment [Automated 6290-2) message] The sy stem which generated this result transmitted reference range : 4.30 - 11.10 10*3/?L. The reference range was not used to interpret this result as normal/abnormal . RBC (test code = See_Comment L [Automated 999-8) message] The sy stem which generated this [...] (test code = 57.2 fL 39.0-49.9 H 04573-7) RDW-CV (test code = 22.0 % 12.0-15.5 H 788-0) PLT (test code = See_Comment H [Automated 777-3) message] The sy stem which generated this result transmitted reference range : 166 - 358 10*3/ ?L. The reference r james was not used to interpret this result as normal/abnormal . MPV (test code = 10.4 fL 9.5-12.9 26437-5) NRBC/100 WBC (test See_Comment [Automat ed code = 9184593775) message] The system which generated this result transmitted reference range : 0.0 - 10.0 /100 WBCs. The refer ence range was not u sed to interpret th is result as normal/abnormal . NRBC x10^3 (test code <0.01 See_Comment [Auto mated = 7696144902) message] The s ystem which generated this result transmitted reference range : 10*3/?L. The reference range was not used to interpret this result as normal/abnormal . GRAN MAT (NEUT) % 71.7 % (test code = 770-8) IMM GRAN % (test code 0.60 % = 5921123934) LYMPH % (test code = 16.7 % 736-9) MONO % (test code = 10.0 % 5905-5) EOS % (test code = 0.8 % 713-8) BASO % (test code = 0.2 % 706-2) GRAN MAT x10^3(ANC) 6.26 10*3/uL 1.88-7.09 (test code = 6849922586) IMM GRAN x10^3 (test 0.05 10*3/uL 0.00-0.06 code = 4847192937) LYMPH x10^3 (test code 1.46 10*3/uL 1.32-3.29 = 731-0) MONO x10^3 (test code 0.87 10*3/uL 0.33-0.92 = 742-7) EOS x10^3 (test code = 0.07 10*3/uL 0.03-0.39 711-2) BASO x10^3 (test code <0.03 0.01-0.07 = 704-7) Lab Interpretation Abnormal (test code = 57685-5) [facility] [id number] 00:00:00 Test Item Value Reference Range Interpretation Comments GLUCOSE (test code = 2217) 129 MG/DL BUN (test code = 2208) 6 MG/DL CREATININE (test code = 2214) 0.51 MG/DL eGFR AMER. (test code 117 ML/MIN/1.73 = 58547) eGFR NON- AMER. (test 101 ML/MIN/1.73 code = 55861) CALC BUN/CREAT (test code = 12 RATIO 2235) SODIUM (test code = 2231) 133 MEQ/L POTASSIUM (test code = 2228) 3.6 MEQ/L CHLORIDE (test code = 2215) 98 MEQ/L CARBON DIOXIDE (test code = 24 MEQ/L 2206) CALCIUM (test code = 2209) 8.3 MG/DL PROTEIN, TOTAL (test code = 6.8 G/DL 222) ALBUMIN (test code = 2201) 3.4 G/DL CALC GLOBULIN (test code = 3.4 G/DL 2240) CALC A/G RATIO (test code = 1.0 RATIO 2234) BILIRUBIN, TOTAL (test code = 1.0 MG/DL 2207) ALKALINE PHOSPHATASE (test 77 U/L code = 2204) AST (test code = 2218) 61 U/L ALT (test code = 2219) 34 U/L CBC W/AUTO [id number] 00:00:00 Test Item Value Reference Range Interpretation [...] NUCLEATED RBCS (test code = 0.05 K/UL 07884) COMMENTS (test code = 1016) (NOTE) CBC W/AUTO [id number] 00:00:00 Test Item Value Reference Range Interpretation [...] NUCLEATED RBCS (test code = 0.05 K/UL 67164) COMMENTS (test code = 1016) (NOTE) CBC W/AUTO [id number] 00:00:00 Test Item Value Reference Range Interpretation [...] NUCLEATED RBCS (test code = 0.05 K/UL 85082) COMMENTS (test code = 1016) (NOTE) COMPREHENSIVE METABOLIC [id number] 00:00:00 Test Item Value Reference Range Interpretation Comments GLUCOSE (test code = 2217) 129 MG/DL BUN (test code = 2208) 6 MG/DL CREATININE (test code = 2214) 0.51 MG/DL eGFR AMER. (test code 117 ML/MIN/1.73 = 37232) eGFR NON- AMER. (test 101 ML/MIN/1.73 code = 33867) CALC BUN/CREAT (test code = 12 RATIO [...] ALKALINE PHOSPHATASE (test 77 U/L code = 220) AST (test code = 2218) 61 U/L ALT (test code = 2219) 34 U/L COMPREHENSIVE METABOLIC [id number] 00:00:00 Test Item Value Reference Range Interpretation Comments GLUCOSE (test code = 2217) 129 MG/DL BUN (test code = 2208) 6 MG/DL CREATININE (test code = 2214) 0.51 MG/DL eGFR AMER. (test code 117 ML/MIN/1.73 = 22239) eGFR NON- AMER. (test 101 ML/MIN/1.73 code = 04438) CALC BUN/CREAT (test code = 12 RATIO [...] code = 2219) 34 U/L CBC W/AUTO [id number] 00:00:00 Test Item Value Reference Range Interpretation [...] NUCLEATED RBCS (test code = 0.05 K/UL 68097) COMMENTS (test code = 1016) (NOTE) CBC W/AUTO [id number] 00:00:00 Test Item Value Reference Range Interpretation [...] NUCLEATED RBCS (test code = 0.05 K/UL 60644) COMMENTS (test code = 1016) (NOTE) CBC W/AUTO [id number] 00:00:00 Test Item Value Reference Range Interpretation [...] NUCLEATED RBCS (test code = 0.05 K/UL 95047) COMMENTS (test code = 1016) (NOTE) COMPREHENSIVE METABOLIC [id number] 00:00:00 Test Item Value Reference Range Interpretation Comments GLUCOSE (test code = 2217) 129 MG/DL BUN (test code = 2208) 6 MG/DL CREATININE (test code = 2214) 0.51 MG/DL eGFR AMER. (test code 117 ML/MIN/1.73 = 22280) eGFR NON- AMER. (test 101 ML/MIN/1.73 code = 32118) CALC BUN/CREAT (test code = 12 RATIO [...] A/G RATIO (test code = 1.0 RATIO 2233) BILIRUBIN, TOTAL (test code = 1.0 MG/DL 2206) ALKALINE PHOSPHATASE (test 77 U/L code = 2204) AST (test code = 2218) 61 U/L ALT (test code = 2219) 34 U/L COMPREHENSIVE METABOLIC [id number] 00:00:00 Test Item Value Reference Range Interpretation Comments GLUCOSE (test code = 2217) 129 MG/DL BUN (test code = 2208) 6 MG/DL CREATININE (test code = 2214) 0.51 MG/DL eGFR AMER. (test code 117 ML/MIN/1.73 = 50616) eGFR NON- AMER. (test 101 ML/MIN/1.73 code = 78084) CALC BUN/CREAT (test code = 12 RATIO [...] code = 2219) 34 U/L CBC W/AUTO [id number] 00:00:00 Test Item Value Reference Range Interpretation [...] NUCLEATED RBCS (test code = 0.05 K/UL 30253) COMMENTS (test code = 1016) (NOTE) CBC W/AUTO [id number] 00:00:00 Test Item Value Reference Range Interpretation [...] NUCLEATED RBCS (test code = 0.05 K/UL 10440) COMMENTS (test code = 1016) (NOTE) CBC W/AUTO [id number] 00:00:00 Test Item Value Reference Range Interpretation [...] NUCLEATED RBCS (test code = 0.05 K/UL 95217) COMMENTS (test code = 1016) (NOTE) COMPREHENSIVE METABOLIC [id number] 00:00:00 Test Item Value Reference Range Interpretation Comments GLUCOSE (test code = 2217) 129 MG/DL BUN (test code = 2208) 6 MG/DL CREATININE (test code = 2214) 0.51 MG/DL eGFR AMER. (test code 117 ML/MIN/1.73 = 90732) eGFR NON- AMER. (test 101 ML/MIN/1.73 code = 80410) CALC BUN/CREAT (test code = 12 RATIO [...] (test code = 2219) 34 U/L ECG 12 [id number] 14:03:00 Test Item Value Reference Range Interpretation Comments Lab Interpretation (test code = Abnormal 98894-9) [facility] [id number] 14:03:00 Test Item Value Reference Range Interpretation Comments Lab Interpretation (test code = Abnormal 54804-8) [facility] [id number] 11:00:32Ordered by an unspecified provider.[facility] SCAN 2020-09-09 11:00:32Ordered by an unspecified provider.[facility] + automated [id number] 04:38:00 Test Item Value Reference Range Interpretation Comments WBC (test code = 6690-2) 7.1 See_Comment [A utomated message] The system [employer] generated this result transmitted ref erence range: 4.0 - 10 .0 K/L. The refe rence range was not u sed to interpret this result as normal/abnor mal. RBC (test code = 789-8) 3.83 See_Comment L [Au tomated message] The system [employer] generated this result transmitted ref erence range: 4.00 - 5 .00 M/L. The refe rence range was not u sed to interpret this result as normal/abnor mal. MCHC (test code = 786-4) 30.3 See_Comment L [A utomated message] The system [employer] generated this result transmitted ref erence range: [...] See_Comment [Aut omated message] 777-3) The system [employer] generated this result transmitted ref erence range: 150 - 43 0 K/CU MM. The referen ce range was not u sed to interpret this result as normal/abnor mal. MPV (test code = [place] 22127-9) to abnormal [place] te[place] population distribution. nRBC (test code = 413) 0 See_Comment [Aut omated message] The system [employer] generated this result transmitted ref erence range: [...] See_Comment [Aut omated message] 670) The system [employer] generated this result transmitted ref erence range: 1.80 - 8 .00 K/L. The refe rence range was not u sed to interpret this result as normal/abnor mal. # Lymphs (test code = 2.19 See_Comment [Auto mated message] 414) The system [employer] generated this result transmitted ref erence range: 1.48 - 4 .50 K/L. The refe rence range was not u sed to interpret this result as normal/abnor mal. # Monos (test code = 0.63 See_Comment [Autom ated message] 415) The system [employer] generated this result transmitted ref erence range: 0.00 - 1 .30 K/L. The refe rence range was not u sed to interpret this result as normal/abnor mal. # Eos (test code = 416) 0.14 See_Comment [Au tomated message] The system [employer] generated this result transmitted ref erence range: 0.00 - 0 .50 K/L. The refe rence range was not u sed to interpret this result as normal/abnor mal. # Baso (test code = 417) 0.03 See_Comment [A utomated message] The system [employer] generated this result transmitted ref erence range: 0.00 - 0 .20 K/L. The refe rence range was not u sed to interpret this result as normal/abnor mal. Immature 0 % 0-0 Granulocytes-Relative (test code = 2801) Lab Interpretation (test Abnormal code = 75709-5) [facility] automated [id number] 04:38:00 Test Item Value Reference Range Interpretation Comments WBC (test code = 6690-2) 7.1 See_Comment [A utomated message] The system [employer] generated this result transmitted ref erence range: 4.0 - 10 .0 K/L. The refe rence range was not u sed to interpret this result as normal/abnor mal. RBC (test code = 789-8) 3.83 See_Comment L [Au tomated message] The system [employer] generated this result transmitted ref erence range: 4.00 - 5 .00 M/L. The refe rence range was not u sed to interpret this result as normal/abnor mal. MCHC (test code = 786-4) 30.3 See_Comment L [A utomated message] The system [employer] generated this result transmitted ref erence range: [...] See_Comment [Aut omated message] 777-3) The system [employer] generated this result transmitted ref erence range: 150 - 43 0 K/CU MM. The referen ce range was not u sed to interpret this result as normal/abnor mal. MPV (test code = [place] 55337-3) to abnormal [place] te[place] population distribution. nRBC (test code = 413) 0 See_Comment [Aut omated message] The system [employer] generated this result transmitted ref erence range: [...] See_Comment [Aut omated message] 670) The system [employer] generated this result transmitted ref erence range: 1.80 - 8 .00 K/L. The refe rence range was not u sed to interpret this result as normal/abnor mal. # Lymphs (test code = 2.19 See_Comment [Auto mated message] 414) The system [employer] generated this result transmitted ref erence range: 1.48 - 4 .50 K/L. The refe rence range was not u sed to interpret this result as normal/abnor mal. # Monos (test code = 0.63 See_Comment [Autom ated message] 415) The system [employer] generated this result transmitted ref erence range: 0.00 - 1 .30 K/L. The refe rence range was not u sed to interpret this result as normal/abnor mal. # Eos (test code = 416) 0.14 See_Comment [Au tomated message] The system [employer] generated this result transmitted ref erence range: 0.00 - 0 .50 K/L. The refe rence range was not u sed to interpret this result as normal/abnor mal. # Baso (test code = 417) 0.03 See_Comment [A utomated message] The system [employer] generated this result transmitted ref erence range: 0.00 - 0 .20 K/L. The refe rence range was not u sed to interpret this result as normal/abnor mal. Immature 0 % 0-0 Granulocytes-Relative (test code = 2801) Lab Interpretation (test Abnormal code = 14325-2) [facility] W/PLT COUNT & AUTO [id number] 04:38:00 Test Item Value Reference Range Interpretation [...] GRANULOCYTES-RELATIVE PERCENT (BEAKER) (test code = 2801) [id number] 04:32:00 Test Item Value Reference Range Interpretation Comments Magnesium (test code = 1.7 mg/dL 1.5-3 57445-5) DIONI (test code = DIONI) Sales And Marketing Engineer ID - LITOOperator ID - LITOOperator ID - LITOOperator ID - GRACE Lab Interpretation (test Normal code = 47226-5) [facility] 04:32:00 Test Item Value Reference Range Interpretation Comments Magnesium (test code = 1.7 mg/dL 1.5-3 65775-8) [employer] (test code = DIONI) Sales And Marketing Engineer ID - LITOOperator ID - LITOOperator ID - LITOOperator ID - GRACE Lab Interpretation (test Normal code = 95265-3) [facility] 04:32:00 Test Item Value Reference Range Interpretation Comments MAGNESIUM (BEAKER) (test code = 1.7 mg/dL 1.5-3.0 627) Sales And Marketing Engineer ID - LITOOperator ID - LITOOperator ID - LITOOperator ID - LITOBasic Metabolic [id number] 04:31:00 Test Item Value Reference Range Interpretation Comments Sodium (test code = 139 meq/L 129-541 1718-2) Potassium (test code 4.0 meq/L 3.6-5.5 = 2823-3) Chloride (test code = 110 meq/L 98-106 H 2075-0) CO2 (test code = 21 meq/L 20-29 2028-9) BUN (test code = 10 mg/dL 10-26 3094-0) Creatinine (test code 0.55 mg/dL 0.5-1.2 = 2160-0) Glucose (test code = 88 mg/dL 70-110 2345-7) Calcium (test code = 8.0 mg/dL 8.5-10.5 L 40250-6) EGFR (test code = 111 mL/min/1[place]73 [place] [address]-1) m NOT ACCURATE CREATININE CLEARANCE IN PREDICTING GLOMERULAR FILTRATION RATE . ESTIMATED GFR I S NOT APPLICABLE FOR DIALYSIS PATIENTS. DIONI (test code = DIONI) Sales And Marketing Engineer ID - LITOOperator ID - LITOOperator ID - LITOOperator ID - LITOOperator ID - LITOOperator ID - LITOOperator ID - LITOOperator ID - LITOOperator ID - GRACE Lab Interpretation Abnormal (test code = 29942-0) [facility] [id number] 04:31:00 Test Item Value Reference Range Interpretation Comments Sodium (test code = 139 meq/L 111-022 7732-2) Potassium (test code 4.0 meq/L 3.6-5.5 = 2823-3) Chloride (test code = 110 meq/L 98-106 H 2075-0) CO2 (test code = 21 meq/L 20-29 2028-9) BUN (test code = 10 mg/dL 10-26 3094-0) Creatinine (test code 0.55 mg/dL 0.5-1.2 = 2160-0) Glucose (test code = 88 mg/dL 70-110 2345-7) Calcium (test code = 8.0 mg/dL 8.5-10.5 L 80016-1) EGFR (test code = 111 mL/min/1.[place] [address]-4) m NOT ACCURATE CREATININE CLEARANCE IN PREDICTING GLOMERULAR FILTRATION RATE . ESTIMATED GFR I S NOT APPLICABLE FOR DIALYSIS PATIENTS. DIONI (test code = DIONI) Sales And Marketing Engineer ID - LITOOperator ID - LITOOperator ID - LITOOperator ID - LITOOperator ID - LITOOperator ID - LITOOperator ID - LITOOperator ID - LITOOperator ID - GRACE Lab Interpretation Abnormal (test code = 18431-1) [facility] [id number] 04:31:00 Test Item Value Reference Range Interpretation Comments SODIUM (BEAKER) 139 meq/L 135-148 (test code = 381) POTASSIUM (BEAKER) 4.0 meq/L 3.6-5.5 (test code = 379) CHLORIDE (BEAKER) 110 meq/L 98-106 H (test code = 382) CO2 (BEAKER) (test 21 meq/L - code = 355) BLOOD UREA NITROGEN 10 mg/dL 10- (BEAKER) (test code = 354) CREATININE (BEAKER) [...] S NOT APPLICABLE FOR DIALYSIS PATIEN TS. Sales And Marketing Engineer ID - LITOOperator ID - LITOOperator ID - LITOOperator ID - LITOOperator ID - LITOOperator ID - LITOOperator ID - LITOOperator ID - LITOOperator ID - [id number] 04:29:00 Test Item Value Reference Range Interpretation Comments Phosphorus (test code = 3.8 mg/dL 2.5-4.5 2777-1) DIONI (test code = DINOI) Sales And Marketing Engineer ID - GRACE Lab Interpretation (test Normal code = 55211-7) [facility] 04:29:00 Test Item Value Reference Range Interpretation Comments Phosphorus (test code = 3.8 mg/dL 2.5-4.5 2777-1) DIONI (test code = DIONI) Sales And Marketing Engineer ID - GRACE Lab Interpretation (test Normal code = 67719-3) [facility] 04:29:00 Test Item Value Reference Range Interpretation Comments PHOSPHORUS (BEAKER) (test code = 3.8 mg/dL 2.5-4.5 604) Sales And Marketing Engineer ID - [id number] 06:06:00 Test Item Value Reference Range Interpretation Comments MAGNESIUM (BEAKER) (test code = 1.9 mg/dL 1.5-3.0 627) Sales And Marketing Engineer ID - [id number] ID - [id number] ID - [id number] ID - [id number] METABOLIC [id number] 06:05:00 Test Item Value Reference Range Interpretation [...] S NOT APPLICABLE FOR DIALYSIS PATIEN TS. Sales And Marketing Engineer ID - [id number] ID - [id number] ID - [id number] ID - [id number] ID - [id number] ID - [id number] ID - [id number] ID - [id number] ID - [id number] 06:03:00 Test Item Value Reference Range Interpretation Comments PHOSPHORUS (BEAKER) (test code = 3.7 mg/dL 2.5-4.5 604) Sales And Marketing Engineer ID - [id number] W/PLT COUNT & AUTO [id number] 05:39:00 Test Item Value Reference Range Interpretation [...] (BEAKER) (test code = 2801) BASIC METABOLIC [id number] 05:30:00 Test Item Value Reference Range Interpretation [...] S NOT APPLICABLE FOR DIALYSIS PATIEN TS. Sales And Marketing Engineer ID - NALINIOperator ID - NALINIOperator ID - NALINIOperator ID - NALINIOperator ID - NALINIOperator ID - NALINIOperator ID - NALINIOperator ID - NALINIOperator ID - NALINIOperator ID - PTRRNLALGNGDUJS8228-47-76 05:29:00 Test Item Value Reference Range Interpretation Comments MAGNESIUM (BEAKER) (test code = 1.6 mg/dL 1.5-3.0 627) Sales And Marketing Engineer ID - NALINIOperator ID - NALINIOperator ID - NALINIOperator ID - TAVO [id number] 05:26:00 Test Item Value Reference Range Interpretation Comments PHOSPHORUS (BEAKER) (test code = 3.6 mg/dL 2.5-4.5 604) Sales And Marketing Engineer ID - NALINICBC W/PLT COUNT & AUTO [id number] 05:17:00 Test Item Value Reference Range Interpretation [...] PERCENT (BEAKER) (test code = 2801) POC-Glucose [id number] 00:11:00 Test Item Value Reference Range Interpretation Comments POC-Glucose Meter (test 91 mg/dL 70-110 : No tified RN/MD: code = 1538) TESTED AT [place] [address]: Sales And Marketing Engineer/Techni pollo ID = [id number] for Arabella Up Lab Interpretation (test Normal code = 90842-7) [facility] [id number] 00:11:00 Test Item Value Reference Range Interpretation Comments POC-Glucose Meter (test 91 mg/dL 70-110 : No tified RN/MD: code = 1538) TESTED AT [address] [address]: Sales And Marketing Engineer/Techni pollo ID = [id number] for Arabella Up Lab Interpretation (test Normal code = 84694-5) [facility]-GLUCOSE [id number] 00:11:00 Test Item Value Reference Range Interpretation Comments POC-GLUCOSE METER 91 mg/dL 70-110 : Notified RN/MD: TESTED (BEAKER) (test code = AT [address] 1538) [place] [address]: Sales And Marketing Engineer/Techni pollo ID = [id number] for Prov ostGoldya POCT-GLUCOSE [id number] 18:11:00 Test Item Value Reference Range Interpretation Comments POC-GLUCOSE METER 80 mg/dL 70-110 : Notified RN/MD: TESTED (BEAKER) (test code = AT [address]) [place] [address]: Sales And Marketing Engineer/Techni pollo ID = [id number] for Bethel h, Lorita POCT-GLUCOSE [id number] 12:32:00 Test Item Value Reference Range Interpretation Comments POC-GLUCOSE METER 75 mg/dL 70-110 : Notified RN/MD: TESTED (BEAKER) (test code = AT [address]) [place] [address]: Sales And Marketing Engineer/Techni pollo ID = [id number] for Bethel h, Lorita POCT-GLUCOSE [id number] 12:14:00 Test Item Value Reference Range Interpretation Comments POC-GLUCOSE METER 79 mg/dL 70-110 : TESTED A T [address] (BEAKER) (test code = [address] [facility], 1538) [place] [address]: Sales And Marketing Engineer/Techni pollo ID = [id number] for Bethel h, Lorita [id number] 09:54:00 Test Item Value Reference Range Interpretation Comments PTT (test code = 63.8 See_Comment H Final Infor mation 30658-8) (Auto Output) [Automated mess age] The system [employer] generated this result transmitted ref erence range: 23.0 - 3 5.0 seconds. The reference range was not used to int erpret this result as normal/abnormal . Lab Interpretation (test Abnormal code = 99524-1) [facility] Test Item Value Reference Range Interpretation Comments PTT (test code = 63.8 See_Comment H Final Infor mation 33430-1) (Auto Output) [Automated mess age] The system [employer] generated this result transmitted ref erence range: 23.0 - 3 5.0 seconds. The reference range was not used to int erpret this result as normal/abnormal . Lab Interpretation (test Abnormal code = 22616-3) [facility] Test Item Value Reference Range Interpretation Comments PARTIAL THROMBOPLASTIN 63.8 seconds 23.0-35.0 H Final Information TIME (BEAKER) (test (Auto Ou tput) code = 760) [id number] 07:53:00 Test Item Value Reference Range Interpretation Comments MAGNESIUM (BEAKER) 1.8 mg/dL 1.5-3.0 Specimen slightly (test code = 627) hemolyzed Sales And Marketing Engineer ID - [id number] ID - [id number] ID - [id number] ID - [id number] 07:51:00 Test Item Value Reference Range Interpretation Comments PHOSPHORUS (BEAKER) 3.4 mg/dL 2.5-4.5 Specimen slightly (test code = 604) hemolyzed Sales And Marketing Engineer ID - [id number] METABOLIC [id number] 05:16:00 Test Item Value Reference Range Interpretation [...] S NOT APPLICABLE FOR DIALYSIS PATIEN TS. Sales And Marketing Engineer ID - [id number] ID - [id number] ID - [id number] ID - [id number] ID - [id number] ID - [id number] ID - [id number] ID - [id number] ID - [id number] ID - [id number] ID - [id number] ID - [id number] ID - [id number] (hemogram only)2020-09-01 04:39:00 Test Item Value Reference Range Interpretation Comments WBC (test code = 6690-2) 8.1 See_Comment [A utomated message] The system [employer] generated this result transmitted ref erence range: 4.0 - 10 .0 K/L. The refe rence range was not u sed to interpret this result as normal/abnor mal. RBC (test code = 789-8) 3.77 See_Comment L [Au tomated message] The system [employer] generated this result transmitted ref erence range: 4.00 - 5 .00 M/L. The refe rence range was not u sed to interpret this result as normal/abnor mal. MCHC (test code = 786-4) 30.5 See_Comment L [A utomated message] The system [employer] generated this result transmitted ref erence range: [...] See_Comment [Aut omated message] 777-3) The system [employer] generated this result transmitted ref erence range: 150 - 43 0 K/CU MM. The referen ce range was not u sed to interpret this result as normal/abnor mal. nRBC (test code = 413) 0 See_Comment [Aut omated message] The system [employer] generated this result transmitted ref erence range: 0 - 0 /1 00 WBC. The refere nce range was not u sed to interpret this result as normal/abnor mal. Lab Interpretation (test Abnormal code = 73151-3) [facility] (hemogram only)2020-09-01 04:39:00 Test Item Value Reference Range Interpretation Comments WBC (test code = 6690-2) 8.1 See_Comment [A utomated message] The system [employer] generated this result transmitted ref erence range: 4.0 - 10 .0 K/L. The refe rence range was not u sed to interpret this result as normal/abnor mal. RBC (test code = 789-8) 3.77 See_Comment L [Au tomated message] The system [employer] generated this result transmitted ref erence range: 4.00 - 5 .00 M/L. The refe rence range was not u sed to interpret this result as normal/abnor mal. MCHC (test code = 786-4) 30.5 See_Comment L [A utomated message] The system [employer] generated this result transmitted ref erence range: [...] See_Comment [Aut omated message] 777-3) The system [employer] generated this result transmitted ref erence range: 150 - 43 0 K/CU MM. The referen ce range was not u sed to interpret this result as normal/abnor mal. nRBC (test code = 413) 0 See_Comment [Aut omated message] The system [employer] generated this result transmitted ref erence range: 0 - 0 /1 00 WBC. The refere nce range was not u sed to interpret this result as normal/abnor mal. Lab Interpretation (test Abnormal code = 82430-5) [facility] (HEMOGRAM ONLY)2020-09-01 04:39:00 Test Item Value [...] WBC 0-0 (BEAKER) (test code = 413) [id number] 01:54:00 Test Item Value Reference Range Interpretation Comments PARTIAL THROMBOPLASTIN 62.6 seconds 23.0-35.0 H Final Information TIME (BEAKER) (test (Auto Ou tput) code = 760) Prepare Leuko-Red [id number] 23:54:00 Test Item Value Reference Range Interpretation Comments CROSSMATCH (test code = 2264) COMPATIBLE Unit ABO (test code = O Pos 1865898) UNIT NUMBER (test code = [id number] 934-0) Status (test code = 8061180) TX_TIMEINCHART Blood Bank Product (test code RED BLOOD CELLS = 2263) PRODUCT CODE (test code = D2925I31 933-2) [facility] [id number] 23:54:00 Test Item Value Reference Range Interpretation Comments CROSSMATCH (test code = 2264) COMPATIBLE Unit ABO (test code = O Pos 1216458) UNIT NUMBER (test code = [id number] 934-0) Status (test code = 3171425) TX_TIMEINCHART Blood Bank Product (test code RED BLOOD CELLS = 2263) PRODUCT CODE (test code = [id number] 933-2) [facility] 16[facility]32:00 Test Item Value Reference Range Interpretation Comments PARTIAL THROMBOPLASTIN 49.5 seconds 23.0-35.0 H Final Information TIME (BEAKER) (test (Auto Ou tput) code = 760) 2D Echo W/Doppler(CW/PW/Color)2020-08-31 09:23:55Ejection FractionSLEH ECHO HEARTLAB MKCKESSON CPACSInterface, External Ris In - 08/31/2020 9:24 AM CD TTransthoracic Echocardiography Report (TTE) Demographics Patient Name LAILA HERNANDEZ Date of Study 08/30/2020 RADHA Gender Female Visit Number [id number] Race Unknown Room Number I202 Number Date of 1955 Referring Physician Age 65 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 [...] ml LVIDs: 3.12 cm LVESV:38.43 ml LV SeptumDiastolic: 1.42 cm LV Septum Systolic: 2 cm LV Length: 7.86 cm LV PW Diastolic: 1.1 cm LV FS: 27.8 %LV PW Systolic: 1.18 cm LVOT Diameter: 1.75 cm LVEF: 54.3 % Right Atrium RA Systolic Pressure: 10 mmHg Right Ventricle RV Systolic Pressure: 40.4 mmHg Aorta Ao Root S of Pau.: 2.41 cm Doppler/Quantitative Measurements Mitral Valve MV Peak E-Wave: 1.19 m/s MV Peak A-Wave: 0.22 m/s P1/2t: 108.7 msec E/ARatio: 5.48 Peak Velocity: 1.21 m/s Peak Gradient: [...] MV Josse. Peak: Tissue Doppler E' Septal Veloc ity: 0.08 m/s E' Lateral Velocity: 0.08 m/s Aortic Valve Peak Velocity: 1.21 m/s Mean Velocity: 0.83m/s Peak Gradient: 5.81 mmHg Mean Gradient: 3.2 [...] TR Gradient: 30.4 mmHg Pulmonic Valve Peak Velocity:0.96 m/s Peak Gradient: 3.72 mmHg Estimated PASP: 40.4 [facility] W/Doppler(CW/PW/Color)2020-08-31 09:23:55Ejection FractionSLEH ECHO HEARTLAB MKCKESSCASIMIRO CPACSInterface, External Ris In - 08/31/2020 9:24 AM CDTTransthoracic Echocardiography Report (TTE) Demographics Patient Name LAILA HERNANDEZ Date of Study 08/30/2020 RADHA Gender Female Visit Number [id number] Race Unknown Room Number I202 Number Date of 1955 Referring Physician Age 65 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 Procedure Type of Study TTE procedure:2DSTARR GUILLAUME(CW/PW/COLOR) (Routine) Indications:Acute Chest Pain/ Suspected CAD.Clinical HistoryCIRRHOSISHeight: 64 inches Weight: 51.26 kg (113 lbs) BSA: 1.53 m^2 BMI: 19.4 kg/m^2HR: 59 bpm BP: 139/84 mmHg Summary Low normal LV systolic function with an estimated LVEF of 50%. There is mild hypokinesis of th e base to mid inferior wall. Grade 1 [...] well visualized. Mild tricuspid regurgitation. Estimated peak sys tolic PA pressure is 25-30 mmHg (normal range) [...] 54.3 % Right Atrium RA Systolic Pressure: 10mmHg Right Ventricle RV Systolic Pressure: 40.4 mmHg [...] cm^2 Alias Velocity: 0.32 m/s MR Flow Rate(PISA): 60.53 ml/s MR ERO (PISA): 0.12 cm^2 MV VTI: 26.5 cm MV Josse. Peak: Tissue Doppler E' Septal V elocity: 0.08 m/s E' Lateral Velocity: 0.08 m/s [...] Peak Gradient: 3.72 mmHg Estimated PASP[facility] [id number] 07:33:00 Test Item Value Reference Range Interpretation Comments Troponin I (test code = 5.78 ng/mL 0-0.15 17828-2) DIONI (test code = DIONI) Troponin I [...] failure, acidosis, acute neurological disease, and persistent tachyarrhythmia.[facility] ID - [id number] Lab Interpretation (test Abnormal code = 37863-0) [facility] [id number] 07:33:00 Test Item Value Reference Range Interpretation Comments Troponin I (test code = 5.78 ng/mL 0-0.15 04064-5) DIONI (test code = DIONI) Troponin I [...] failure, acidosis, acute neurological disease, and persistent tachyarrhythmia.[facility] ID - [id number] Lab Interpretation (test Abnormal code = 65768-5) [facility] [id number] 07:33:00 Test Item Value Reference Range Interpretation [...] failure, acidosis, acute neurological disease, and persistent tachyarrhythmia.Sales And Marketing Engineer ID - [id number] 07:29:00 Test Item Value Reference Range Interpretation Comments MAGNESIUM (BEAKER) 1.8 mg/dL 1.5-3.0 Specimen slightly (test code = 627) hemolyzed Sales And Marketing Engineer ID - [id number] ID - [id number] ID - [id number] ID - [id number] 07:27:00 Test Item Value Reference Range Interpretation Comments PHOSPHORUS (BEAKER) 3.0 mg/dL 2.5-4.5 Specimen slightly (test code = 604) hemolyzed Sales And Marketing Engineer ID - [id number] 07:04:00 Test Item Value Reference Range Interpretation Comments PARTIAL THROMBOPLASTIN 38.5 seconds 23.0-35.0 H Final Information TIME (BEAKER) (test (Auto Ou tput) code = 760) Comprehensive metabolic [id number] 05:38:00 Test Item Value Reference Interpretation Comments Range Protein, Total 5.5 See_Comment L Specimen (test code = slightly 2885-2) hemolyzed [Automated message] The system which generated this result transmitted reference range : 6.0 - 8.5 gm/dL . The reference range was not used to interpret this result as normal/abnormal . Albumin (test code 2.6 g/dL 3.5-5 L Specimen = 36854-8) slightly hemolyzed Alkaline 53 U/L 30-115 Phosphatase (test code = 6768-6) Total Bilirubin 0.9 mg/dL 0.1-1.2 Specimen (test code = slightly 1975-2) hemolyzed Sodium (test code = 138 meq/L 113-652 5684-2) Potassium (test 4.4 meq/L 3.6-5.5 Specimen code [...] (test code 7.6 mg/dL 8.5-10.5 L = 97324-4) AST (test code = 52 U/L 5-40 H Specimen 1920-8) slightly hemolyzed ALT (test code = 33 U/L 5-50 Specimen 1742-6) slightly hemolyzed EGFR (test code = 101 mL/min/1[place]73 [place] [address]-6) m NOT ACCURATE CREATININE CLEARANCE IN PREDICTING GLOMERULAR FILTRATION RATE . ESTIMATED GFR I S NOT APPLICABLE FOR DIALYSIS PATIENTS. DIONI (test code = Sales And Marketing Engineer ID - DIONI) RESORIANOperator ID - RESORIANOperator [...] RESORIAN Lab Interpretation Abnormal (test code = 40013-9) [facility]Com[facility] [id number] 05:38:00 Test Item Value Reference Interpretation Comments Range Protein, Total 5.5 See_Comment L Specimen (test code = slightly 2885-2) hemolyzed [Automated message] The system which generated this result transmitted reference range : 6.0 - 8.5 gm/dL . The reference range was not used to interpret this result as normal/abnormal . Albumin (test code 2.6 g/dL 3.5-5 L Specimen = 21442-6) slightly hemolyzed Alkaline 53 U/L 30-115 Phosphatase (test code = 6768-6) Total Bilirubin 0.9 mg/dL 0.1-1.2 Specimen (test code = slightly 1975-2) hemolyzed Sodium (test code = 138 meq/L 345-882 5607-2) Potassium (test 4.4 meq/L 3.6-5.5 Specimen code [...] (test code 7.6 mg/dL 8.5-10.5 L = 66257-0) AST (test code = 52 U/L 5-40 H Specimen 1920-8) slightly hemolyzed ALT (test code = 33 U/L 5-50 Specimen 1742-6) slightly hemolyzed EGFR (test code = 101 mL/min/1.[place] [address]-0) m NOT ACCURATE CREATININE CLEARANCE IN PREDICTING GLOMERULAR FILTRATION RATE . ESTIMATED GFR I S NOT APPLICABLE FOR DIALYSIS PATIENTS. DIONI (test code = Sales And Marketing Engineer ID - DIONI) RESORIANOperator ID - RESORIANOperator [...] RESORIAN Lab Interpretation Abnormal (test code = 55626-7) [facility]COM[facility] METABOLIC [id number] 05:38:00 Test Item Value Reference Range Interpretation [...] S NOT APPLICABLE FOR DIALYSIS PATIEN TS. Sales And Marketing Engineer ID - RESORIANOperator ID - RESORIANOperator ID [...] 0-0 (BEAKER) (test code = 413) TROPONIN [id number] 01:21:00 Test Item Value Reference Range Interpretation [...] failure, acidosis, acute neurological disease, and persistent tachyarrhythmia.Sales And Marketing Engineer ID - [id number] 22:21:00 Test Item Value Reference Range Interpretation Comments PARTIAL THROMBOPLASTIN 33.0 seconds 23.0-35.0 Final Information TIME (BEAKER) (test (Auto Ou tput) code = 760) [id number] 14:16:00 Test Item Value Reference Range Interpretation Comments PARTIAL THROMBOPLASTIN 24.6 seconds 23.0-35.0 Final Information TIME (BEAKER) (test (Auto Ou tput) code = 760) Platelet [id number] 14:02:00 Test Item Value Reference Range Interpretation Comments Platelets (test code = 196 See_Comment [Aut omated message] 777-3) The system [employer] generated this result transmitted ref erence range: 150 - 43 0 K/CU MM. The referen ce range was not u sed to interpret this result as normal/abnor mal. Lab Interpretation (test Normal code = 03127-6) [facility]Plate[facility] [id number] 14:02:00 Test Item Value Reference Range Interpretation Comments Platelets (test code = 196 See_Comment [Aut omated message] 777-3) The system [employer] generated this result transmitted ref erence range: 150 - 43 0 K/CU MM. The referen ce range was not u sed to interpret this result as normal/abnor mal. Lab Interpretation (test Normal code = 74982-2) [facility]PL[facility] [id number] 14:02:00 Test Item Value Reference Range Interpretation Comments PLATELET COUNT (BEAKER) (test 196 K/CU MM 150-430 code = 756) Occult blood, [id number] 10:57:00 Test Item Value Reference Range Interpretation Comments Occult blood (test code = 2335-8) Negative Negative Lab Interpretation (test code = Normal 56347-9) [facility] HospitalOccult blood, [id number] 10:57:00 Test Item Value Reference Range Interpretation Comments Occult blood (test code = 2335-8) Negative Negative Lab Interpretation (test code = Normal 94707-5) [facility]OCCULT [facility]LOOD, [id number] 10:57:00 Test Item Value Reference Range Interpretation Comments FECAL OCCULT BLOOD (BEAKER) (test Negative Negative code = 618) [id number] 09:29:00 Test Item Value Reference Range Interpretation Comments MAGNESIUM (BEAKER) (test code = 1.8 mg/dL 1.5-3.0 627) Sales And Marketing Engineer ID - [id number] 05:52:00 Test Item Value Reference Range Interpretation Comments Triglycerides (test 47 mg/dL code = 2571-8) Cholesterol (test code 96 mg/dL = 2093-3) HDL (test code = 27 mg/dL 2085-02) LDL Calculated (test 60 mg/dL code = 96492-9) DIONI (test code = DIONI) Triglyceride Reference Range: Low Risk <150 Borderline 150-199 High Risk 200-499 Very High Risk >=500 Cholesterol Reference Range: Low Risk <200 Borderline 200-239 High Risk >240 HDL Cholesterol Reference Range: Low Risk >=60 High Risk <40 LDL Cholesterol Reference Range: Optimal <100 Near Optimal 100-129 Borderline 130-159 High 160-189 Very High >=190 Sales And Marketing Engineer ID - [id number] ID - [id number] ID - [id number] ID - [id number] ID - [id number] ID - [id number] [facility] Natriure[facility] (BNP)2020-08-30 05:52:00 Test Item Value Reference Range Interpretation Comments BNP (test code = 96640-2) 893 pg/mL 0-100 H DIONI (test code = DIONI) Sales And Marketing Engineer ID - [id number] Lab Interpretation (test Abnormal code = 95412-0) [facility] HospitalLipid [id number] 05:52:00 Test Item Value Reference Range Interpretation Comments Triglycerides (test 47 mg/dL code = 2571-8) Cholesterol (test code 96 mg/dL = 3-3) HDL (test code = 27 mg/dL 9) LDL Calculated (test 60 mg/dL code = 37406-7) DIONI (test code = DIONI) Triglyceride Reference Range: Low Risk <150 Borderline 150-199 High Risk 200-499 Very High Risk >=500 Cholesterol Reference Range: Low Risk <200 Borderline 200-239 High Risk >240 HDL Cholesterol Reference Range: Low Risk >=60 High Risk <40 LDL Cholesterol Reference Range: Optimal <100 Near Optimal 100-129 Borderline 130-159 High 160-189 Very High >=190 Sales And Marketing Engineer ID - [id number] ID - [id number] ID - [id number] ID - [id number] ID - [id number] ID - [id number] [facility] (BNP)2020-08-30 05:52:00 Test Item Value Reference Range Interpretation Comments BNP (test code = 60263-2) 893 pg/mL 0-100 H DIONI (test code = DIONI) Sales And Marketing Engineer ID - [id number] Lab Interpretation (test Abnormal code = 50118-5) [facility] NATRIURET[facility] FACTOR (BNP)2020-08-30 05:52:00 Test Item Value Reference Range Interpretation Comments B-TYPE NATRIURETIC PEPTIDE (BEAKER) 893 pg/mL 0-100 H (test code = 700) Sales And Marketing Engineer ID - [id number] 05:52:00 Test Item Value Reference Range Interpretation [...] Borderline 130-159 High 160-189 Very High >=190 Sales And Marketing Engineer ID - [id number] ID - [id number] ID - [id number] ID - [id number] ID - [id number] ID - [id number] [id number] 05:49:00 Test Item Value Reference Range Interpretation Comments TROPONIN I (BEAKER) (test code = 6.85 ng/mL 0.00-0.15 [facility]) Troponin I (TnI) levels must be interpreted [...] failure, acidosis, acute neurological disease, and persistent tachyarrhythmia.Sales And Marketing Engineer ID - [id number] METABOLIC [id number] 05:46:00 Test Item Value Reference Range Interpretation [...] S NOT APPLICABLE FOR DIALYSIS PATIEN TS. Sales And Marketing Engineer ID - [id number] ID - [id number] ID - [id number] ID - [id number] ID - [id number] ID - [id number] ID - [id number] ID - [id number] ID - [id number] ID - [id number] W/PLT COUNT & AUTO [id number] 05:35:00 Test Item Value Reference Range Interpretation [...] (test code = 2801) Rapid drug screen, [id number] 04:13:00 Test Item Value Reference Range Interpretation Comments Barbiturate Screen Negative Negative (test code = 23366-1) Benzodiazepine Screen Negative Negative (test code = 08124-8) Cocaine (Metab.) Negative Negative Screen (test code = 3397-7) Methadone Screen (test Negative Negative code = 82487-4) Opiate Screen (test Negative Negative code = 71906-3) Cannabinoid Screen Negative Negative (test code = 80212-6) Amph/Methamph Screen Negative Negative (test code = 26073-0) Phencyclidine Screen Negative Negative (test code = 16801-7) pH, UA (test code = 6.5 5.0-8.0 5803-2) DIONI (test code = DIONI) DRUG CUTOFF CONC.Cocaine 300 ng/mL Cannabinoid 50 ng/mLBenzodiazepine 200 ng/mLBarbiturate 200 ng/mLPhencyclidine 25 ng/mLOpiate 300 ng/mLMethadone 300 ng/mLAmphetamine/ 1000 ng/mL Methamphetamine This assay provides an unconfirmed qualitative test result for the clinical management of patients in emergency situations. Chain of custody not maintained. Some ynpx-ibc-vrvraam medications, as well as adulterants, may cause inaccurate results. Clinical correlation should be applied. A more comprehensive drug screen or confirmation of a detected drug may be performed upon request.Sales And Marketing Engineer ID - [id number] ID - [id number] ID - [id number] ID - [id number] ID - [id number] ID - [id number] ID - [id number] ID - [id number] Lab Interpretation Normal (test code = 49770-3) [facility], [id number] 04:13:00 Test Item Value Reference Range Interpretation Comments Barbiturate Screen Negative Negative (test code = 81843-9) Benzodiazepine Screen Negative Negative (test code = 22006-8) Cocaine (Metab.) Negative Negative Screen (test code = 3397-7) Methadone Screen (test Negative Negative code = 85744-5) Opiate Screen (test Negative Negative code = 45759-2) Cannabinoid Screen Negative Negative (test code = 29700-7) Amph/Methamph Screen Negative Negative (test code = 74728-6) Phencyclidine Screen Negative Negative (test code = 46504-3) pH, UA (test code = 6.5 5.0-8.0 5803-2) DIONI (test code = DIONI) DRUG CUTOFF CONC.Cocaine 300 ng/mL Cannabinoid 50 ng/mLBenzodiazepine 200 ng/mLBarbiturate 200 ng/mLPhencyclidine 25 ng/mLOpiate 300 ng/mLMethadone 300 ng/mLAmphetamine/ 1000 ng/mL Methamphetamine This assay provides an unconfirmed qualitative test result for the clinical management of patients in emergency situations. Chain of custody not maintained. Some bfav-azx-qprnpej medications, as well as adulterants, may cause inaccurate results. Clinical correlation should be applied. A more comprehensive drug screen or confirmation of a detected drug may be performed upon request.Sales And Marketing Engineer ID - [id number] ID - [id number] ID - [id number] ID - [id number] ID - [id number] ID - [id number] ID - [id number] ID - [id number] Lab Interpretation Normal (test code = 03481-6) [facility]EN, [id number] 04:13:00 Test Item Value Reference Range Interpretation [...] ng/mLOpiate 300 ng/mLMethadone 300 ng/mLAmphetamine/ 1000 ng/mL MethamphetamineThisassay provides an unconfirmed qualitative test result for the clinical management of patients in emergency situations. Chain of custody not maintained. Some apfr-doe-rhijzrg medications, as well as adulterants, may cause inaccurate results. Clinical correlation should be applied. A more comprehensive drug screen or confirmation of a detected drug may be performed upon request.Sales And Marketing Engineer ID - [id number] ID - [id number] ID - [id number] ID - [id number] ID - [id number] ID - [id number] ID - [id number] ID - [id number] and screen, [id number] 01:28:00 Test Item Value Reference Range Interpretation Comments ABO/RH AUTOMATED (BEAKER) (test O POSITIVE code = 2260) Ab Scrn (test code = 890-4) NEGATIVE [facility] HospitalType and screen, [id number] 01:28:00 Test Item Value Reference Range Interpretation Comments ABO/RH AUTOMATED (BEAKER) (test O POSITIVE code = 2260) Ab Scrn (test code = 890-4) NEGATIVE [facility]TR[facility] [id number] 23:38:00 Test Item Value Reference Range Interpretation Comments TROPONIN I (BEAKER) (test code = 7.11 ng/mL 0.00-0.15 [facility]) Troponin I (TnI) levels must be interpreted [...] failure, acidosis, acute neurological disease, and persistent tachyarrhythmia.Sales And Marketing Engineer ID - [id number] function [id number] 23:23:00 Test Item Value Reference Range Interpretation Comments Protein, Total (test 5.7 See_Comment L [Autom ated code = 2885-2) message] The system which generated this result transmit diane reference range : 6.0 - 8.5 gm/dL . The reference range was not u sed to interpret th is result as normal/abnormal . Albumin (test code = 3.0 g/dL 3.5-5 L 24686-9) Total Bilirubin (test 0.7 mg/dL 0.1-1.2 code = 1975-2) Bilirubin, Direct 0.4 mg/dL 0-0.4 (test code = 1967-7) Alkaline Phosphatase 60 U/L 30-115 (test code = 6768-6) AST (test code = 64 U/L 5-40 H 1920-8) ALT (test code = 39 U/L 5-50 1742-6) DIONI (test code = DIONI) Sales And Marketing Engineer ID - [id number] r ID - [id number] r ID - [id number] r ID - [id number] r ID - [id number] r ID - [id number] r ID - [id number] Lab Interpretation Abnormal (test code = 39000-1) [facility] HospitalHepatic function [id number] 23:23:00 Test Item Value Reference Range Interpretation Comments Protein, Total (test 5.7 See_Comment L [Autom ated code = 2885-2) message] The system which generated this result transmit diane reference range : 6.0 - 8.5 gm/dL . The reference range was not u sed to interpret th is result as normal/abnormal . Albumin (test code = 3.0 g/dL 3.5-5 L 31352-0) Total Bilirubin (test 0.7 mg/dL 0.1-1.2 code = 1974-2) Bilirubin, Direct 0.4 mg/dL 0-0.4 (test code = 1967-7) Alkaline Phosphatase 60 U/L 30-115 (test code = 6768-6) AST (test code = 64 U/L 5-40 H 1920-8) ALT (test code = 39 U/L 5-50 1742-6) DIONI (test code = DIONI) Sales And Marketing Engineer ID - [id number] r ID - [id number] r ID - [id number] r ID - [id number] r ID - [id number] r ID - [id number] r ID - [id number] Lab Interpretation Abnormal (test code = 11822-4) [facility] [id number] 23:23:00 Test Item Value Reference Range Interpretation [...] S NOT APPLICABLE FOR DIALYSIS PATIEN TS. Sales And Marketing Engineer ID - [id number] ID - [id number] ID - [id number] ID - [id number] ID - [id number] ID - [id number] ID - [id number] ID - [id number] ID - [id number] ID - [id number] HEPATIC FUNCTION [id number] 23:23:00 Test Item Value Reference Range Interpretation [...] (test code = 39 U/L 5-50 347) Sales And Marketing Engineer ID - [id number] ID - [id number] ID - [id number] ID - [id number] ID - [id number] ID - [id number] ID - [id number] 23:23:00 Test Item Value Reference Range Interpretation Comments MAGNESIUM (BEAKER) (test code = 1.7 mg/dL 1.5-3.0 627) Sales And Marketing Engineer ID - [id number] ID - [id number] ID - [id number] ID - [id number] [id number] 23:21:00 Test Item Value Reference Range Interpretation Comments Total Counted (test code = 1351) WBC Morphology (test code = 487) Normal Platelet Morphology (test code = 486) Normal Polychromasia (test code = 478) 1+ few Target Cells (test code = 480) 1+ few [facility] [id number] 23:21:00 Test Item Value Reference Range Interpretation Comments Total Counted (test code = 1351) WBC Morphology (test code = 487) Normal Platelet Morphology (test code = 486) Normal Polychromasia (test code = 478) 1+ few Target Cells (test code = 480) 1+ few [facility](MANUAL DIFFERENTIAL)2020-08-29 23:21:00 Test Item Value Reference Range Interpretation Comments TOTAL COUNTED (BEAKER) (test code = 1351) WBC MORPHOLOGY (BEAKER) (test code = Normal 487) PLT MORPHOLOGY (BEAKER) (test code = Normal 486) POLYCHROMATOPHILLIC RBCS(BEAKER) (test 1+ few code = 478) TARGET CELLS (BEAKER) (test code = 1+ few 480) CBC W/PLT COUNT & AUTO [id number] 23:21:00 Test Item Value Reference Range Interpretation [...] PERCENT (BEAKER) (test code = 2801) Prothrombin time/[id number] 23:18:00 Test Item Value Reference Interpretation Comments [...] valves. Lab Interpretation Abnormal (test code = 45624-5) [facility] HospitalProthrombin time/[id number] 23:18:00 Test Item Value Reference Interpretation Comments [...] valves. Lab Interpretation Abnormal (test code = 32090-1) [facility]PROTHROMBIN TIME/[id number] 23:18:00 Test Item Value Reference Range Interpretation Comments PROTIME (BEAKER) 12.3 seconds 9.3-12.0 H Final Infor mation (test code = 759) (Auto Outp ut) INR (BEAKER) (test 1.11 See_Comment Final Inf ormation code = 370) (Auto Output) [Automated mess age] The system [employer] generated this result transmitted ref erence range: <=5.90. The reference range was not used to int erpret this result as normal/abnormal . RECOMMENDED COUMADIN/WARFARIN INR THERAPY RANGESSTANDARD DOSE: 2.0 - 3.0 Includes: PROPHYLAXIS for venous thrombosis, systemic embolization; TREATMENT for venous thrombosis and/or pulmonary embolus.HIGH RISK: Target INR is 2.5-3.5 for patients with mechanical heart valves.Hemoglobin [id number] 23:12:00 Test Item Value Reference Range Interpretation Comments Hemoglobin A1C (test code 5.0 % 4.3-6.1 = 4548-4) DIONI (test code = DIONI) Sales And Marketing Engineer ID - [id number] Lab Interpretation (test Normal code = 62539-9) [facility] [id number] 23:12:00 Test Item Value Reference Range Interpretation Comments Hemoglobin A1C (test code 5.0 % 4.3-6.1 = 4548-4) DIONI (test code = DIONI) Sales And Marketing Engineer ID - [id number] Lab Interpretation (test Normal code = 75671-7) [facility]HEMO[facility] [id number] 23:12:00 Test Item Value Reference Range Interpretation Comments HEMOGLOBIN A1C (BEAKER) (test code = 5.0 % 4.3-6.1 368) Sales And Marketing Engineer ID - [id number] 00:00:00Ordered by an unspecified provider.[facility]EKG-[id number] 00:00:00[facility] by an unspecified provider.[facility] by RT-PCR (HIGH RISK)2020-04-22 00:00:00 Test Item Value Reference Range Interpretation Comments SARS-CoV-2 INTERPRETATION Negative (test code = 50178) SOURCE (test code = 99380) Nasal_Swab_in_VTM__ UTM SARS-CoV-2 (COVID-19) by RT-PCR (HIGH RISK)2020-04-22 00:00:00 Test Item Value Reference Range Interpretation Comments SARS-CoV-2 INTERPRETATION Negative (test code = 95381) SOURCE (test code = 81583) Nasal_Swab_in_VTM__ UTM SARS-CoV-2 (COVID-19) by RT-PCR (HIGH RISK)2020-04-22 00:00:00 Test Item Value Reference Range Interpretation Comments SARS-CoV-2 INTERPRETATION Negative (test code = 49492) SOURCE (test code = 58121) Nasal_Swab_in_VTM__ UTM FUNGUS CULTURE + [id number] 17:29:00 Test Item Value Reference Range Interpretation Comments CULTURE (BEAKER) (test No fungus isolated in code = 1095) 28 days FUNGUS SMEAR (BEAKER) No fungi seen (test code = 1406) ANAEROBIC [id number] 18:10:00 Test Item Value Reference Range Interpretation Comments CULTURE (BEAKER) (test No anaerobes isolated code = 1095) SARS-COV2/RT-PCR ([facility])2020-01-03 11:25:00 Test Item Value Reference Range Interpretation Comments SARS-COV2/RT-PCR (test Negative Not Detected, Negative, code = 5451884) See external report for linked test SARS-COV-2 PERFORMING LAB [facility] (test code = 4924963) Negative result for this test determines that [...] of the Act.Fact Sheet for Healthcare Prov iders:https://www.Curio.B[employer]ForGood/sites/default/files/product/documents/Fact_Sheet_HC _Xqkduudgt_Gztz_JLQV-FvT-0.pdfFact Sheet for Healthcare Patients:https://www.Curio.[employer]/sites/default/files/product/docume nts/Mrgj_Miezl_Wxlhxfwy_Esgt_XETX-XzU-7.pdfPerforming Laboratory:[facility], [place] [address]DWREX METABOLIC PANEL 2020-01-03 05:46:00 Test Item Value [...] S NOT APPLICABLE FOR DIALYSIS PATIEN TS. Sales And Marketing Engineer ID - [id number] 05:40:00 Test Item Value Reference Range Interpretation Comments PHOSPHORUS (BEAKER) (test code = 3.4 mg/dL 2.3-4.7 604) Sales And Marketing Engineer ID - [id number] 05:40:00 Test Item Value Reference Range Interpretation Comments MAGNESIUM (BEAKER) (test code = 1.7 mg/dL 1.6-2.6 627) Sales And Marketing Engineer ID - EDASICBC W/PLT COUNT & AUTO [id number] 05:19:00 Test Item Value Reference Range Interpretation [...] (BEAKER) (test code = 2801) BASIC METABOLIC [id number] 05:31:00 Test Item Value Reference Range Interpretation [...] S NOT APPLICABLE FOR DIALYSIS PATIEN TS. Sales And Marketing Engineer ID - EDASICBC W/PLT COUNT & AUTO [id number] 05:24:00 Test Item Value Reference Range Interpretation [...] 0-1 PERCENT (BEAKER) (test code = 2801) [id number] 05:03:00 Test Item Value Reference Range Interpretation Comments PHOSPHORUS (BEAKER) (test code = 3.6 mg/dL 2.3-4.7 604) Sales And Marketing Engineer ID - [id number] 05:03:00 Test Item Value Reference Range Interpretation Comments MAGNESIUM (BEAKER) (test code = 1.6 mg/dL 1.6-2.6 627) Sales And Marketing Engineer ID - EDASICBC W/PLT COUNT & AUTO [id number] 05:56:00 Test Item Value Reference Range Interpretation [...] 0-1 H PERCENT (BEAKER) (test code = 2803) [id number] 05:09:00 Test Item Value Reference Range Interpretation Comments PHOSPHORUS (BEAKER) (test code = 3.8 mg/dL 2.3-4.7 604) Sales And Marketing Engineer ID - [id number] 05:09:00 Test Item Value Reference Range Interpretation Comments MAGNESIUM (BEAKER) (test code = 1.6 mg/dL 1.6-2.6 627) Sales And Marketing Engineer ID - EDASIBASIC METABOLIC [id number] 05:09:00 Test Item Value Reference Range Interpretation [...] S NOT APPLICABLE FOR DIALYSIS PATIEN TS. Sales And Marketing Engineer ID - EDASIBASIOrthocon METABOLIC [id number] 06:51:00 Test Item Value Reference Range Interpretation [...] S NOT APPLICABLE FOR DIALYSIS PATIEN TS. Sales And Marketing Engineer ID - [id number] 06:45:00 Test Item Value Reference Range Interpretation Comments MAGNESIUM (BEAKER) 1.6 mg/dL 1.6-2.6 Specimen slightly (test code = 627) hemolyzed Sales And Marketing Engineer ID - [id number] 06:45:00 Test Item Value Reference Range Interpretation Comments PHOSPHORUS (BEAKER) 3.5 mg/dL 2.3-4.7 Specimen slightly (test code = 604) hemolyzed Sales And Marketing Engineer ID - DBCBC W/PLT COUNT & AUTO [id number] 06:29:00 Test Item Value Reference Range Interpretation [...] (BEAKER) (test code = 2801) BASIC METABOLIC [id number] 05:57:00 Test Item Value Reference Range Interpretation [...] S NOT APPLICABLE FOR DIALYSIS PATIEN TS. Sales And Marketing Engineer ID - [id number] 05:49:00 Test Item Value Reference Range Interpretation Comments PHOSPHORUS (BEAKER) (test code = 3.1 mg/dL 2.3-4.7 604) Sales And Marketing Engineer ID - [id number] 05:49:00 Test Item Value Reference Range Interpretation Comments MAGNESIUM (BEAKER) (test code = 1.6 mg/dL 1.6-2.6 627) Sales And Marketing Engineer ID - DBVANCOMYCIN LEVEL, [id number] 05:36:00 Test Item Value Reference Range Interpretation Comments VANCOMYCIN TROUGH (BEAKER) (test 10.9 ug/mL 10.0-20.0 code = 522) Sales And Marketing Engineer ID - DBCBC W/PLT COUNT & AUTO [id number] 05:29:00 Test Item Value Reference Range Interpretation [...] (BEAKER) (test code = 2801) BASIC METABOLIC [id number] 06:37:00 Test Item Value Reference Range Interpretation [...] S NOT APPLICABLE FOR DIALYSIS PATIEN TS. Sales And Marketing Engineer ID - [id number] 06:18:00 Test Item Value Reference Range Interpretation Comments MAGNESIUM (BEAKER) 1.6 mg/dL 1.6-2.6 Specimen slightly (test code = 627) hemolyzed Sales And Marketing Engineer ID - [id number] 06:18:00 Test Item Value Reference Range Interpretation Comments PHOSPHORUS (BEAKER) 2.7 mg/dL 2.3-4.7 Specimen slightly (test code = 604) hemolyzed Sales And Marketing Engineer ID - EDASICBC W/PLT COUNT & AUTO [id number] 05:33:00 Test Item Value Reference Range Interpretation [...] = 2801) SURGICALLY OBTAINED CULTURE + GRAM [id number] 14:41:00 Test Item Value Reference Range Interpretation Comments CULTURE (BEAKER) (test code No growth = 1095) GRAM STAIN RESULT (BEAKER) 2+ WBCs (test code = 1123) GRAM STAIN RESULT (BEAKER) No organisms seen (test code = 62025) [id number] 05:41:00 Test Item Value Reference Range Interpretation Comments PHOSPHORUS (BEAKER) (test code = 2.6 mg/dL 2.3-4.7 604) Sales And Marketing Engineer ID - [id number] 05:41:00 Test Item Value Reference Range Interpretation Comments MAGNESIUM (BEAKER) (test code = 1.7 mg/dL 1.6-2.6 627) Sales And Marketing Engineer ID - EDASIBASIC METABOLIC [id number] 05:41:00 Test Item Value Reference Range Interpretation [...] S NOT APPLICABLE FOR DIALYSIS PATIEN TS. Sales And Marketing Engineer ID - EDASIHEPATIC FUNCTION [id number] 05:41:00 Test Item Value Reference Range Interpretation [...] (test code = 19 U/L 6-55 347) Sales And Marketing Engineer ID - EDASICBC W/PLT COUNT & AUTO [id number] 05:38:00 Test Item Value Reference Range Interpretation [...] PERCENT (BEAKER) (test code = 2801) TISSUE [id number] 14:02:00Surgical Pathology Report Case: [id number] Authorizing Provider: Dougie Montoya MD Collected: 12/25/2019 [...] CHRONIC INFLAMMATION. Signing Pathologist Direct Phone Line: [phone] signed by Lois Metz MD on 12/27/2019 at 2:02 [id number], [id number] perforationA. Stomach; B. O mentumA. Received in formalin labeled with the patient's name, accession number and "stomach" is a 14.0 x 7.5 x 3.5 cm portion of stomach with a short suture at one end, which is designated as "distal"by the surgeon, and a double stitch designated as posterior perforation. The stomach contains up to 5.0 cm of attached perigastric fat. The serosa is wallace-pink, predominantly smooth and displays a 2.5 x2.3 cm transmural defect at the posterior wall [...] posterior wallA9, anterior wallA10, one lymph node, vagumthcP56, one lymph nodeB. Received in formalin labeled with the patient's name, accession number and "omentum" is a 39.0 x 13.7 x 1.5 cm portion of wallace-yellow fibrofatty omentum with attached fibromembranous tissue. Sectioning reveals a tn-yellow fibrofatty cut surface, No discrete lesions are identified. Slip Feeder sections are submitted in B1- B4. PA/pl [facility]formedB[facility], [facility] of [facility]ology, [address] [place] [address], [facility], [facility] of Pathology, [address] [place], [place] [id number], [facility], Department of Pathology, [address] [place], [place] [id number], CXHB-COV2/RT-PCR ([facility])2019-12-27 12:48:00 Test Item Value Reference Range Interpretation Comments SARS-COV2/RT-PCR (test Negative Not Detected, Negative, code = 2771523) See external report for linked test SARS-COV-2 PERFORMING LAB [facility] (test code = 3968011) Negative result for this test determines that [...] of the Act.Fact Sheet for Healthcare Prov iders:https://www.Curio.BiddingForGood/sites/default/files/product/documents/Fact_Sheet_HC _Mpkgandcl_Niyl_PKCA-AzU-0.pdfFact Sheet for Healthcare Patients:https://www.Curio.[employer]/sites/default/files/product/docume nts/Xtga_Xoney_Jxjylhsn_Lvpk_GYLV-MxM-0.pdfPerforming Laboratory:[facility], [place] [address]GDBHICVHOG LEVEL, TROUGH 2019-12-27 07:01:00 Test Item Value Reference Range Interpretation Comments VANCOMYCIN TROUGH (BEAKER) (test 7.1 ug/mL 10.0-20.0 L code = 522) Sales And Marketing Engineer ID - PIAYA LBASIC METABOLIC [id number] 06:28:00 Test Item Value Reference Range Interpretation [...] S NOT APPLICABLE FOR DIALYSIS PATIEN TS. Sales And Marketing Engineer ID Denia TRIPP [id number] 06:17:00 Test Item Value Reference Range Interpretation Comments PHOSPHORUS (BEAKER) (test code = 2.2 mg/dL 2.3-4.7 L 604) Sales And Marketing Engineer ID - JOSEE [id number] 06:17:00 Test Item Value Reference Range Interpretation Comments MAGNESIUM (BEAKER) (test code = 1.8 mg/dL 1.6-2.6 627) Sales And Marketing Engineer ID - JOSEE LHEPATIC FUNCTION [id number] 06:17:00 Test Item Value Reference Range Interpretation [...] (test code = 14 U/L 6-55 347) Sales And Marketing Engineer ID Denia TRIPP LCBC W/PLT COUNT & AUTO [id number] 06:05:00 Test Item Value Reference Range Interpretation [...] PERCENT (BEAKER) (test code = 2801) POCT-GLUCOSE [id number] 11:06:00 Test Item Value Reference Range Interpretation Comments POC-GLUCOSE METER 72 mg/dL 70-110 : TESTED A T [facility] 6720 (BEAKER) (test code = [place], 1538) [address]: Sales And Marketing Engineer/Techni pollo ID = [id number] for MAN DISLA BASIC METABOLIC [id number] 07:24:00 Test Item Value Reference Range Interpretation [...] S NOT APPLICABLE FOR DIALYSIS PATIEN TS. Sales And Marketing Engineer ID - [id number] 07:18:00 Test Item Value Reference Range Interpretation Comments PHOSPHORUS (BEAKER) (test code = 2.4 mg/dL 2.3-4.7 604) Sales And Marketing Engineer ID - [id number] 07:18:00 Test Item Value Reference Range Interpretation Comments MAGNESIUM (BEAKER) (test code = 1.8 mg/dL 1.6-2.6 627) Sales And Marketing Engineer ID - BSHEPATIC FUNCTION [id number] 07:18:00 Test Item Value Reference Range Interpretation [...] (test code = 11 U/L 6-55 347) Sales And Marketing Engineer ID - BSCBC W/PLT COUNT & AUTO [id number] 06:08:00 Test Item Value Reference Range Interpretation [...] PERCENT (BEAKER) (test code = 2801) SARS-COV2/RT-PCR ([facility])2019-12-25 18:47:00 Test Item Value Reference Range Interpretation Comments SARS-COV2/RT-PCR (test code Negative Not Detected, Negative, = 3917306) See external report for linked test SARS-COV-2 PERFORMING LAB [facility] (test code = 9428965) Negative results do not preclude SARS-CoV-2 infection [...] of the Act.Fact Sheet for Healthcare Pro viders:https://www.InvestingNote/Documents/Xpert%20Xpress%20SARS%20CoV-2/Fact%20Sh eets/302-3802%97OIFT-UYY-9%20HEALTHCARE%20PROVIDERS%20FACT%20SHEET.pdfFact Sheet for Healthcare Patients:https://www.Nu-Pulse.BiddingForGood/Documents/Xpert%20Xpress%20SARS%20CoV-2/Fact%20Sheets/302-3801%20SARS-COV -2%20PATIENT%20FACT%20SHEET.pdfPerforming Laboratory:[facility], [place] [address]XIOCA METABOLIC [id number] 15:48:00 Test Item Value Reference Range Interpretation [...] S NOT APPLICABLE FOR DIALYSIS PATIEN TS. Sales And Marketing Engineer ID - BSBASI METABOLIC [id number] 15:00:00 Test Item Value Reference Range Interpretation [...] S NOT APPLICABLE FOR DIALYSIS PATIEN TS. Sales And Marketing Engineer ID - [id number] 15:00:00 Test Item Value Reference Range Interpretation Comments MAGNESIUM (BEAKER) (test code = 1.9 mg/dL 1.6-2.6 627) Sales And Marketing Engineer ID - [id number] 14:59:00 Test Item Value Reference Range Interpretation Comments PHOSPHORUS (BEAKER) (test code = 4.1 mg/dL 2.3-4.7 604) Sales And Marketing Engineer ID - [id number] 12:34:00 Test Item Value Reference Range Interpretation Comments MAGNESIUM (BEAKER) (test code = 1.9 mg/dL 1.6-2.6 627) Sales And Marketing Engineer ID - LMBASIC METABOLIC [id number] 12:34:00 Test Item Value Reference Range Interpretation [...] S NOT APPLICABLE FOR DIALYSIS PATIEN TS. Sales And Marketing Engineer ID - [id number] 12:33:00 Test Item Value Reference Range Interpretation Comments PHOSPHORUS (BEAKER) (test code = 4.8 mg/dL 2.3-4.7 H 604) Sales And Marketing Engineer ID - LMCBC (HEMOGRAM ONLY)2019-12-25 12:27:00 Test [...] 0-0 CELLS (BEAKER) (test code = 413) [id number] 11:53:00 Test Item Value Reference Range Interpretation Comments PHOSPHORUS (BEAKER) (test code = 2.9 mg/dL 2.3-4.7 604) Sales And Marketing Engineer ID - LMSODIUM NA-STAT [id number] 10:15:00 Test Item Value Reference Range Interpretation Comments SODIUM (BEAKER) (test code = 381) 129 meq/L 136-145 L POTASSIUM-STAT [id number] 10:15:00 Test Item Value Reference Range Interpretation Comments POTASSIUM (BEAKER) (test code = 3.2 meq/L 3.6-5.5 L 379) GLUCOSE-STAT [id number] 10:15:00 Test Item Value Reference Range Interpretation Comments GLUCOSE RANDOM (BEAKER) (test code 116 mg/dL 70-110 H = 652) HGB/HCT (H&H) - STAT [id number] 10:15:00 Test Item Value Reference Range Interpretation Comments HEMOGLOBIN (BEAKER) (test code = 8.9 g/dL 12.0-15.0 L 410) HEMATOCRIT (BEAKER) (test code = 26.0 % 36.0-45.0 L 411) CALCIUM, [id number] 10:13:00 Test Item Value Reference Range Interpretation Comments CALCIUM IONIZED (BEAKER) (test 1.06 mmol/L 1.12-1.27 L code = 698) PH, BLOOD (BEAKER) (test code = 7.28 1810) BLOOD GAS, [id number] 10:13:00 Test Item Value Reference Range Interpretation [...] (BEAKER) (test code = 1+ few 474) Sales And Marketing Engineer ID - 6000Manually zaipEFAVYEUBQ3410-15-04 04:33:00 Test Item Value Reference Range Interpretation Comments MAGNESIUM (BEAKER) (test code = 1.9 mg/dL 1.6-2.6 627) Sales And Marketing Engineer ID - LOAN WBASIC METABOLIC [id number] 04:33:00 Test Item Value Reference Range Interpretation [...] S NOT APPLICABLE FOR DIALYSIS PATIEN TS. Sales And Marketing Engineer ID Denia CATES WCBC W/PLT COUNT & AUTO [id number] 04:22:00 Test Item Value Reference Range Interpretation [...] (BEAKER) (test code = 2801) HEPATIC FUNCTION [id number] 02:51:00 Test Item Value Reference Range Interpretation [...] (test code = 18 U/L 6-55 347) Sales And Marketing Engineer ID - LOAN VARGASARS-COV2/RT-PCR ([facility])2019-12-25 01:01:00 Test Item Value Reference Range Interpretation Comments SARS-COV2/RT-PCR (test code Negative Not Detected, Negative, = 6971841) See external report for linked test SARS-COV-2 PERFORMING LAB [facility] (test code = 6229844) Negative results do not preclude SARS-CoV-2 infection [...] of the Act.Fact Sheet for Healthcare Pro viders:https://www.InvestingNote/Documents/Xpert%20Xpress%20SARS%20CoV-2/Fact%20Sh eets/3023802%16XMMY-JOL-2%20HEALTHCARE%20PROVIDERS%20FACT%20SHEET.pdfFact Sheet for Healthcare Patients:https://www.[employer]/Documents/Xpert%20Xpress%20SARS%20CoV-2/Fact%20Sheets/3023801%20SARS-COV -2%20PATIENT%20FACT%20SHEET.pdfPerforming Laboratory:[facility], [place] [address]HYLSAHXI [id number] 00:40:00 Test Item Value Reference Range Interpretation [...] failure, acidosis, acute neurological disease, and persistent tachyarrhythmia.Sales And Marketing Engineer ID - LOAN JAMES, CHEST, 1 VIEW, NON [id number] 00:40:00Reason for exam:->Chest painShould this be performed at the bedside?->YesFINAL REPORT INDICATION: Chest pain COMPARISON: None TECHNIQUE: Single frontal view of the chest. IMPRESSION: Lungs and pleura: Clear lungs. No effusion.Heart and mediastinum: Normal heart size. Unremarkable mediastinal contours.Osseous structures: No acute abnormality.Other: Mildly displaced fracture of the posterior right eighth rib of indeterminate chronicity. Signed: Ralf Mauricio [facility] Verified Date/Time: 12/25/2019 00:40:46 Electronically signed by: RALF MAURICIO MD on 0 12/25/2019 12:40 [id number] 00:33:00 Test Item Value Reference Range Interpretation Comments PHOSPHORUS (BEAKER) (test code = 2.8 mg/dL 2.3-4.7 604) Sales And Marketing Engineer ID - [id number] 00:33:00 Test Item Value Reference Range Interpretation Comments MAGNESIUM (BEAKER) (test code = 1.3 mg/dL 1.6-2.6 L 627) Sales And Marketing Engineer ID - BSBASIC METABOLIC [id number] 00:33:00 Test Item Value Reference Range Interpretation [...] S NOT APPLICABLE FOR DIALYSIS PATIEN TS. Sales And Marketing Engineer ID - BSPROTHROMBIN TIME/[id number] 00:17:00 Test Item Value Reference Range Interpretation [...] mechanical heart valves.CBC W/PLT COUNT & AUTO [id number] 00:11:00 Test Item Value Reference Range Interpretation [...] Comments SARS-CoV-2 INTERPRETATION (test NEGATIVE code = 80740) SOURCE (test code = 93123) NOT SPECIFIED SARS-CoV-2 (COVID-19) by RT-PCR (HIGH RISK)2019-11-15 00:00:00 Test Item Value Reference Range Interpretation Comments SARS-CoV-2 INTERPRETATION (test NEGATIVE code = 75969) SOURCE (test code = 54758) NOT SPECIFIED SARS-CoV-2 (COVID-19) by RT-PCR (HIGH RISK)2019-11-15 00:00:00 Test Item Value Reference Range Interpretation Comments SARS-CoV-2 INTERPRETATION (test NEGATIVE code = 94570) SOURCE (test code = 09641) NOT SPECIFIED SARS-CoV-2 (COVID-19) by RT-PCR (HIGH RISK)2019-11-15 00:00:00 Test Item Value Reference Range Interpretation Comments SARS-CoV-2 INTERPRETATION (test NEGATIVE code = 51799) SOURCE (test code = 83427) NOT SPECIFIED SARS-CoV-2 (COVID-19) by RT-PCR (HIGH RISK)2019-11-15 00:00:00 Test Item Value Reference Range Interpretation Comments SARS-CoV-2 INTERPRETATION (test NEGATIVE code = 83327) SOURCE (test code = 36667) NOT SPECIFIED SARS-CoV-2 (COVID-19) by RT-PCR (HIGH RISK)2019-11-15 00:00:00 Test Item Value Reference Range Interpretation Comments SARS-CoV-2 INTERPRETATION (test NEGATIVE code = 45313) SOURCE (test code = 41638) NOT SPECIFIED CBC W/AUTO [id number] 00:00:00 Test Item Value Reference Range Interpretation [...] code = 1015) 172 K/UL CBC W/AUTO [id number] 00:00:00 Test Item Value Reference Range Interpretation [...] code = 1015) 172 K/UL CBC W/AUTO [id number] 00:00:00 Test Item Value Reference Range Interpretation [...] code = 1015) 172 K/UL CBC W/AUTO [id number] 00:00:00 Test Item Value Reference Range Interpretation [...] code = 1015) 172 K/UL CBC W/AUTO [id number] 00:00:00 Test Item Value Reference Range Interpretation [...] code = 1015) 172 K/UL CBC W/AUTO [id number] 00:00:00 Test Item Value Reference Range Interpretation [...] code = 1015) 172 K/UL CBC W/AUTO [id number] 00:00:00 Test Item Value Reference Range Interpretation [...] code = 1015) 172 K/UL CBC W/AUTO [id number] 00:00:00 Test Item Value Reference Range Interpretation [...] code = 1015) 172 K/UL CBC W/AUTO [id number] 00:00:00 Test Item Value Reference Range Interpretation [...] COUNT (test code = 1015) 172 K/UL HEMOGLOBIN [id number] 00:00:00 Test Item Value Reference Range Interpretation Comments HEMOGLOBIN A1c (test code = 29377) 5.5 % HEMOGLOBIN [id number] 00:00:00 Test Item Value Reference Range Interpretation Comments HEMOGLOBIN A1c (test code = 56160) 5.5 % HEMOGLOBIN [id number] 00:00:00 Test Item Value Reference Range Interpretation Comments HEMOGLOBIN A1c (test code = 33269) 5.5 % [id number] 00:00:00 Test Item Value Reference Range Interpretation Comments TSH, THIRD GENERATION (test code 1.630 UIU/ML = 2821) [id number] 00:00:00 Test Item Value Reference Range Interpretation Comments TSH, THIRD GENERATION (test code 1.630 UIU/ML = 2821) [id number] 00:00:00 Test Item Value Reference Range Interpretation Comments TSH, THIRD GENERATION (test code 1.630 UIU/ML = 2821) CBC W/AUTO [id number] 00:00:00 Test Item Value Reference Range Interpretation [...] code = 1015) 157 K/UL CBC W/AUTO [id number] 00:00:00 Test Item Value Reference Range Interpretation [...] code = 1015) 157 K/UL CBC W/AUTO [id number] 00:00:00 Test Item Value Reference Range Interpretation [...] code = 1015) 157 K/UL COMPREHENSIVE METABOLIC [id number] 00:00:00 Test Item Value Reference Range Interpretation Comments GLUCOSE (test code = 2217) 94 MG/DL BUN (test code = 2208) 8 MG/DL CREATININE (test code = 2214) 0.58 MG/DL eGFR AMER. (test code 115 ML/MIN/1.73 = 33680) eGFR NON- AMER. (test 99 ML/MIN/1.73 code = 38440) CALC BUN/CREAT (test code = 14 RATIO [...] CALC GLOBULIN (test code = 3.2 G/DL 0) CALC A/G RATIO (test code = 1.3 RATIO 2233) BILIRUBIN, TOTAL (test code = 0.2 MG/DL 2206) ALKALINE PHOSPHATASE (test 100 U/L code = 2204) AST (test code = 2218) 42 U/L ALT (test code = 2219) 36 U/L COMPREHENSIVE METABOLIC [id number] 00:00:00 Test Item Value Reference Range Interpretation Comments GLUCOSE (test code = 2217) 94 MG/DL BUN (test code = 2208) 8 MG/DL CREATININE (test code = 2214) 0.58 MG/DL eGFR AMER. (test code 115 ML/MIN/1.73 = 54593) eGFR NON- AMER. (test 99 ML/MIN/1.73 code = 85774) CALC BUN/CREAT (test code = 14 RATIO [...] CALC GLOBULIN (test code = 3.2 G/DL 0) CALC A/G RATIO (test code = 1.3 RATIO 2233) BILIRUBIN, TOTAL (test code = 0.2 MG/DL 2206) ALKALINE PHOSPHATASE (test 100 U/L code = 2204) AST (test code = 2218) 42 U/L ALT (test code = 2219) 36 U/L HEMOGLOBIN [id number] 00:00:00 Test Item Value Reference Range Interpretation Comments HEMOGLOBIN A1c (test code = 62884) 5.5 % HEMOGLOBIN [id number] 00:00:00 Test Item Value Reference Range Interpretation Comments HEMOGLOBIN A1c (test code = 38852) 5.5 % HEMOGLOBIN [id number] 00:00:00 Test Item Value Reference Range Interpretation Comments HEMOGLOBIN A1c (test code = 64368) 5.5 % [id number] 00:00:00 Test Item Value Reference Range Interpretation Comments TSH, THIRD GENERATION (test code 1.630 UIU/ML = 2821) [id number] 00:00:00 Test Item Value Reference Range Interpretation Comments TSH, THIRD GENERATION (test code 1.630 UIU/ML = 2821) [id number] 00:00:00 Test Item Value Reference Range Interpretation Comments TSH, THIRD GENERATION (test code 1.630 UIU/ML = 2821) CBC W/AUTO [id number] 00:00:00 Test Item Value Reference Range Interpretation [...] code = 1015) 157 K/UL CBC W/AUTO [id number] 00:00:00 Test Item Value Reference Range Interpretation [...] code = 1015) 157 K/UL CBC W/AUTO [id number] 00:00:00 Test Item Value Reference Range Interpretation [...] code = 1015) 157 K/UL COMPREHENSIVE METABOLIC [id number] 00:00:00 Test Item Value Reference Range Interpretation Comments GLUCOSE (test code = 2217) 94 MG/DL BUN (test code = 2208) 8 MG/DL CREATININE (test code = 2214) 0.58 MG/DL eGFR AMER. (test code 115 ML/MIN/1.73 = 97957) eGFR NON- AMER. (test 99 ML/MIN/1.73 code = 77836) CALC BUN/CREAT (test code = 14 RATIO [...] code = 2219) 36 U/L COMPREHENSIVE METABOLIC [id number] 00:00:00 Test Item Value Reference Range Interpretation Comments GLUCOSE (test code = 2217) 94 MG/DL BUN (test code = 2208) 8 MG/DL CREATININE (test code = 2214) 0.58 MG/DL eGFR AMER. (test code 115 ML/MIN/1.73 = 56182) eGFR NON- AMER. (test 99 ML/MIN/1.73 code = 04867) CALC BUN/CREAT (test code = 14 RATIO [...] (test code = 2219) 36 U/L HEMOGLOBIN [id number] 00:00:00 Test Item Value Reference Range Interpretation Comments HEMOGLOBIN A1c (test code = 57161) 5.5 % HEMOGLOBIN [id number] 00:00:00 Test Item Value Reference Range Interpretation Comments HEMOGLOBIN A1c (test code = 85033) 5.5 % HEMOGLOBIN [id number] 00:00:00 Test Item Value Reference Range Interpretation Comments HEMOGLOBIN A1c (test code = 40361) 5.5 % [id number] 00:00:00 Test Item Value Reference Range Interpretation Comments TSH, THIRD GENERATION (test code 1.630 UIU/ML = 2821) [id number] 00:00:00 Test Item Value Reference Range Interpretation Comments TSH, THIRD GENERATION (test code 1.630 UIU/ML = 2821) [id number] 00:00:00 Test Item Value Reference Range Interpretation Comments TSH, THIRD GENERATION (test code 1.630 UIU/ML = 2821) CBC W/AUTO [id number] 00:00:00 Test Item Value Reference Range Interpretation [...] code = 1015) 157 K/UL CBC W/AUTO [id number] 00:00:00 Test Item Value Reference Range Interpretation [...] code = 1015) 157 K/UL CBC W/AUTO [id number] 00:00:00 Test Item Value Reference Range Interpretation [...] code = 1015) 157 K/UL COMPREHENSIVE METABOLIC [id number] 00:00:00 Test Item Value Reference Range Interpretation Comments GLUCOSE (test code = 2217) 94 MG/DL BUN (test code = 2208) 8 MG/DL CREATININE (test code = 2214) 0.58 MG/DL eGFR AMER. (test code 115 ML/MIN/1.73 = 95150) eGFR NON- AMER. (test 99 ML/MIN/1.73 code = 39725) CALC BUN/CREAT (test code = 14 RATIO [...] BILIRUBIN, TOTAL (test code = 0.2 MG/DL 220) ALKALINE PHOSPHATASE (test 100 U/L code = 2204) AST (test code = 2218) 42 U/L ALT (test code = 2219) 36 U/L COMPREHENSIVE METABOLIC [id number] 00:00:00 Test Item Value Reference Range Interpretation Comments GLUCOSE (test code = 2217) 94 MG/DL BUN (test code = 2208) 8 MG/DL CREATININE (test code = 2214) 0.58 MG/DL eGFR AMER. (test code 115 ML/MIN/1.73 = 98853) eGFR NON- AMER. (test 99 ML/MIN/1.73 code = 87174) CALC BUN/CREAT (test code = 14 RATIO [...] ALT (test code = 2219) 36 U/L LIPID [id number] 00:00:00 Test Item Value Reference Range Interpretation Comments CHOLESTEROL (test code = 2210) 152 MG/DL TRIGLYCERIDES (test code = 2232) 86 MG/DL HDL CHOLESTEROL (test code = 2220) 59 MG/DL CALC LDL CHOL (test code = 2237) 76 MG/DL RISK RATIO LDL/HDL (test code = 1.28 RATIO 2238) LIPID [id number] 00:00:00 Test Item Value Reference Range Interpretation Comments CHOLESTEROL (test code = 2210) 152 MG/DL TRIGLYCERIDES (test code = 2232) 86 MG/DL HDL CHOLESTEROL (test code = 2220) 59 MG/DL CALC LDL CHOL (test code = 2237) 76 MG/DL RISK RATIO LDL/HDL (test code = 1.28 RATIO 2238) CBC W/AUTO [id number] 00:00:00 Test Item Value Reference Range Interpretation [...] code = 1015) 176 K/UL CBC W/AUTO [id number] 00:00:00 Test Item Value Reference Range Interpretation [...] code = 1015) 176 K/UL CBC W/AUTO [id number] 00:00:00 Test Item Value Reference Range Interpretation [...] (test code = 1015) 176 K/UL HEMOGLOBIN [id number] 00:00:00 Test Item Value Reference Range Interpretation Comments HEMOGLOBIN A1c (test code = 90379) 5.2 % HEMOGLOBIN [id number] 00:00:00 Test Item Value Reference Range Interpretation Comments HEMOGLOBIN A1c (test code = 74487) 5.2 % HEMOGLOBIN [id number] 00:00:00 Test Item Value Reference Range Interpretation Comments HEMOGLOBIN A1c (test code = 59154) 5.2 % VITAMIN [id number] 00:00:00 Test Item Value Reference Range Interpretation Comments VITAMIN B-12 (test code = 2840) 886 PG/ML VITAMIN [id number] 00:00:00 Test Item Value Reference Range Interpretation Comments VITAMIN B-12 (test code = 2840) 886 PG/ML VITAMIN [id number] 00:00:00 Test Item Value Reference Range Interpretation Comments VITAMIN B-12 (test code = 2840) 886 PG/ML VITAMIN D, 25 [id number] 00:00:00 Test Item Value Reference Range Interpretation Comments VITAMIN D, 25 OH (test code = 4958) 19 NG/ML VITAMIN D, 25 [id number] 00:00:00 Test Item Value Reference Range Interpretation Comments VITAMIN D, 25 OH (test code = 4958) 19 NG/ML ACUTE HEPATITIS [id number] 00:00:00 Test Item Value Reference Range Interpretation Comments HEPATITIS A IgM (test code = NON-REACTIVE 93335) HEPATITIS B CORE IgM (test code NON-REACTIVE = 4644) HEPATITIS B SURF AG (test code = NON-REACTIVE 2739) HEPATITIS C ANTIBODY (test code REACTIVE = 4675) INTERPRETATION HEPATITIS A: (NOTE) (test code = 2552) INTERPRETATION HEPATITIS B: (NOTE) (test code = 23810) INTERPRETATION HEPATITIS C: (NOTE) (test code = 76140) ACUTE HEPATITIS [id number] 00:00:00 Test Item Value Reference Range Interpretation Comments HEPATITIS A IgM (test code = NON-REACTIVE 00087) HEPATITIS B CORE IgM (test code NON-REACTIVE = 4644) HEPATITIS B SURF AG (test code = NON-REACTIVE 2739) HEPATITIS C ANTIBODY (test code REACTIVE = 4675) INTERPRETATION HEPATITIS A: (NOTE) (test code = 2552) INTERPRETATION HEPATITIS B: (NOTE) (test code = 16189) INTERPRETATION HEPATITIS C: (NOTE) (test code = 53180) COMPREHENSIVE METABOLIC [id number] 00:00:00 Test Item Value Reference Range Interpretation Comments GLUCOSE (test code = 2217) 83 MG/DL BUN (test code = 2208) 9 MG/DL CREATININE (test code = 2214) 0.68 MG/DL eGFR AMER. (test code 109 ML/MIN/1.73 = 97958) eGFR NON- AMER. (test 94 ML/MIN/1.73 code = 86298) CALC BUN/CREAT (test code = 13 RATIO [...] code = 2219) 39 U/L COMPREHENSIVE METABOLIC [id number] 00:00:00 Test Item Value Reference Range Interpretation Comments GLUCOSE (test code = 2217) 83 MG/DL BUN (test code = 2208) 9 MG/DL CREATININE (test code = 2214) 0.68 MG/DL eGFR AMER. (test code 109 ML/MIN/1.73 = 29740) eGFR NON- AMER. (test 94 ML/MIN/1.73 code = 64100) CALC BUN/CREAT (test code = 13 RATIO [...] CALC GLOBULIN (test code = 3.8 G/DL 224) CALC A/G RATIO (test code = 1.1 RATIO 2234) BILIRUBIN, TOTAL (test code = 0.5 MG/DL 2206) ALKALINE PHOSPHATASE (test 98 U/L code = 2204) AST (test code = 2218) 47 U/L ALT (test code = 2219) 39 U/L LIPID [id number] 00:00:00 Test Item Value Reference Range Interpretation Comments CHOLESTEROL (test code = 2210) 152 MG/DL TRIGLYCERIDES (test code = 2232) 86 MG/DL HDL CHOLESTEROL (test code = 2220) 59 MG/DL CALC LDL CHOL (test code = 2237) 76 MG/DL RISK RATIO LDL/HDL (test code = 1.28 RATIO 2238) LIPID [id number] 00:00:00 Test Item Value Reference Range Interpretation Comments CHOLESTEROL (test code = 2210) 152 MG/DL TRIGLYCERIDES (test code = 2232) 86 MG/DL HDL CHOLESTEROL (test code = 2220) 59 MG/DL CALC LDL CHOL (test code = 2237) 76 MG/DL RISK RATIO LDL/HDL (test code = 1.28 RATIO 2238) CBC W/AUTO [id number] 00:00:00 Test Item Value Reference Range Interpretation [...] code = 1015) 176 K/UL CBC W/AUTO [id number] 00:00:00 Test Item Value Reference Range Interpretation [...] code = 1015) 176 K/UL CBC W/AUTO [id number] 00:00:00 Test Item Value Reference Range Interpretation [...] (test code = 1015) 176 K/UL HEMOGLOBIN [id number] 00:00:00 Test Item Value Reference Range Interpretation Comments HEMOGLOBIN A1c (test code = 78088) 5.2 % HEMOGLOBIN [id number] 00:00:00 Test Item Value Reference Range Interpretation Comments HEMOGLOBIN A1c (test code = 41863) 5.2 % HEMOGLOBIN [id number] 00:00:00 Test Item Value Reference Range Interpretation Comments HEMOGLOBIN A1c (test code = 91614) 5.2 % VITAMIN [id number] 00:00:00 Test Item Value Reference Range Interpretation Comments VITAMIN B-12 (test code = 2840) 886 PG/ML VITAMIN [id number] 00:00:00 Test Item Value Reference Range Interpretation Comments VITAMIN B-12 (test code = 2840) 886 PG/ML VITAMIN [id number] 00:00:00 Test Item Value Reference Range Interpretation Comments VITAMIN B-12 (test code = 2840) 886 PG/ML VITAMIN D, 25 [id number] 00:00:00 Test Item Value Reference Range Interpretation Comments VITAMIN D, 25 OH (test code = 4958) 19 NG/ML VITAMIN D, 25 [id number] 00:00:00 Test Item Value Reference Range Interpretation Comments VITAMIN D, 25 OH (test code = 4958) 19 NG/ML ACUTE HEPATITIS [id number] 00:00:00 Test Item Value Reference Range Interpretation Comments HEPATITIS A IgM (test code = NON-REACTIVE 19510) HEPATITIS B CORE IgM (test code NON-REACTIVE = 4644) HEPATITIS B SURF AG (test code = NON-REACTIVE 2739) HEPATITIS C ANTIBODY (test code REACTIVE = 4675) INTERPRETATION HEPATITIS A: (NOTE) (test code = 2552) INTERPRETATION HEPATITIS B: (NOTE) (test code = 01957) INTERPRETATION HEPATITIS C: (NOTE) (test code = 59609) ACUTE HEPATITIS [id number] 00:00:00 Test Item Value Reference Range Interpretation Comments HEPATITIS A IgM (test code = NON-REACTIVE 44685) HEPATITIS B CORE IgM (test code NON-REACTIVE = 4644) HEPATITIS B SURF AG (test code = NON-REACTIVE 2239) HEPATITIS C ANTIBODY (test code REACTIVE = 4611) INTERPRETATION HEPATITIS A: (NOTE) (test code = 2552) INTERPRETATION HEPATITIS B: (NOTE) (test code = 26516) INTERPRETATION HEPATITIS C: (NOTE) (test code = 75193) COMPREHENSIVE METABOLIC [id number] 00:00:00 Test Item Value Reference Range Interpretation Comments GLUCOSE (test code = 2217) 83 MG/DL BUN (test code = 2208) 9 MG/DL CREATININE (test code = 2214) 0.68 MG/DL eGFR AMER. (test code 109 ML/MIN/1.73 = 23042) eGFR NON- AMER. (test 94 ML/MIN/1.73 code = 08998) CALC BUN/CREAT (test code = 13 RATIO [...] code = 2219) 39 U/L COMPREHENSIVE METABOLIC [id number] 00:00:00 Test Item Value Reference Range Interpretation Comments GLUCOSE (test code = 2217) 83 MG/DL BUN (test code = 2208) 9 MG/DL CREATININE (test code = 2214) 0.68 MG/DL eGFR AMER. (test code 109 ML/MIN/1.73 = 83383) eGFR NON- AMER. (test 94 ML/MIN/1.73 code = 73417) CALC BUN/CREAT (test code = 13 RATIO [...] (test code = 2219) 39 U/L LIPID [id number] 00:00:00 Test Item Value Reference Range Interpretation Comments CHOLESTEROL (test code = 2210) 152 MG/DL TRIGLYCERIDES (test code = 2232) 86 MG/DL HDL CHOLESTEROL (test code = 2220) 59 MG/DL CALC LDL CHOL (test code = 2237) 76 MG/DL RISK RATIO LDL/HDL (test code = 1.28 RATIO 2238) LIPID [id number] 00:00:00 Test Item Value Reference Range Interpretation Comments CHOLESTEROL (test code = 2210) 152 MG/DL TRIGLYCERIDES (test code = 2232) 86 MG/DL HDL CHOLESTEROL (test code = 2220) 59 MG/DL CALC LDL CHOL (test code = 2237) 76 MG/DL RISK RATIO LDL/HDL (test code = 1.28 RATIO 2238) CBC W/AUTO [id number] 00:00:00 Test Item Value Reference Range Interpretation [...] code = 1015) 176 K/UL CBC W/AUTO [id number] 00:00:00 Test Item Value Reference Range Interpretation [...] code = 1015) 176 K/UL CBC W/AUTO [id number] 00:00:00 Test Item Value Reference Range Interpretation [...] (test code = 1015) 176 K/UL HEMOGLOBIN [id number] 00:00:00 Test Item Value Reference Range Interpretation Comments HEMOGLOBIN A1c (test code = 27253) 5.2 % HEMOGLOBIN [id number] 00:00:00 Test Item Value Reference Range Interpretation Comments HEMOGLOBIN A1c (test code = 66459) 5.2 % HEMOGLOBIN [id number] 00:00:00 Test Item Value Reference Range Interpretation Comments HEMOGLOBIN A1c (test code = 36761) 5.2 % VITAMIN [id number] 00:00:00 Test Item Value Reference Range Interpretation Comments VITAMIN B-12 (test code = 2840) 886 PG/ML VITAMIN [id number] 00:00:00 Test Item Value Reference Range Interpretation Comments VITAMIN B-12 (test code = 2840) 886 PG/ML VITAMIN [id number] 00:00:00 Test Item Value Reference Range Interpretation Comments VITAMIN B-12 (test code = 2840) 886 PG/ML VITAMIN D, 25 [id number] 00:00:00 Test Item Value Reference Range Interpretation Comments VITAMIN D, 25 OH (test code = 4958) 19 NG/ML VITAMIN D, 25 [id number] 00:00:00 Test Item Value Reference Range Interpretation Comments VITAMIN D, 25 OH (test code = 4958) 19 NG/ML ACUTE HEPATITIS [id number] 00:00:00 Test Item Value Reference Range Interpretation Comments HEPATITIS A IgM (test code = NON-REACTIVE 69659) HEPATITIS B CORE IgM (test code NON-REACTIVE = 4644) HEPATITIS B SURF AG (test code = NON-REACTIVE 2739) HEPATITIS C ANTIBODY (test code REACTIVE = 4675) INTERPRETATION HEPATITIS A: (NOTE) (test code = 2552) INTERPRETATION HEPATITIS B: (NOTE) (test code = 30522) INTERPRETATION HEPATITIS C: (NOTE) (test code = 28416) ACUTE HEPATITIS [id number] 00:00:00 Test Item Value Reference Range Interpretation Comments HEPATITIS A IgM (test code = NON-REACTIVE 48999) HEPATITIS B CORE IgM (test code NON-REACTIVE = 4644) HEPATITIS B SURF AG (test code = NON-REACTIVE 2739) HEPATITIS C ANTIBODY (test code REACTIVE = 4675) INTERPRETATION HEPATITIS A: (NOTE) (test code = 2552) INTERPRETATION HEPATITIS B: (NOTE) (test code = 45435) INTERPRETATION HEPATITIS C: (NOTE) (test code = 71669) COMPREHENSIVE METABOLIC [id number] 00:00:00 Test Item Value Reference Range Interpretation Comments GLUCOSE (test code = 2217) 83 MG/DL BUN (test code = 2208) 9 MG/DL CREATININE (test code = 2214) 0.68 MG/DL eGFR AMER. (test code 109 ML/MIN/1.73 = 61972) eGFR NON- AMER. (test 94 ML/MIN/1.73 code = 94614) CALC BUN/CREAT (test code = 13 RATIO [...] code = 2219) 39 U/L COMPREHENSIVE METABOLIC [id number] 00:00:00 Test Item Value Reference Range Interpretation Comments GLUCOSE (test code = 2217) 83 MG/DL BUN (test code = 2208) 9 MG/DL CREATININE (test code = 2214) 0.68 MG/DL eGFR AMER. (test code 109 ML/MIN/1.73 = 79248) eGFR NON- AMER. (test 94 ML/MIN/1.73 code = 04125) CALC BUN/CREAT (test code = 13 RATIO [...] BILIRUBIN, TOTAL (test code = 0.5 MG/DL 7) ALKALINE PHOSPHATASE (test 98 U/L code = 2204) AST (test code = 2218) 47 U/L ALT (test code = 2219) 39 U/L VITAMIN D,1,24-[id number] 00:00:00 Test Item Value Reference Range Interpretation Comments VITAMIN D,1,25-DIHYDROXY (test 42.2 PG/ML code = 4960) VITAMIN D,1,27-[id number] 00:00:00 Test Item Value Reference Range Interpretation Comments VITAMIN D,1,25-DIHYDROXY (test 42.2 PG/ML code = 4960) CBC W/AUTO [id number] 00:00:00 Test Item Value Reference Range Interpretation [...] code = 1015) 184 K/UL CBC W/AUTO [id number] 00:00:00 Test Item Value Reference Range Interpretation [...] code = 1015) 184 K/UL CBC W/AUTO [id number] 00:00:00 Test Item Value Reference Range Interpretation [...] code = 1015) 184 K/UL COMPREHENSIVE METABOLIC [id number] 00:00:00 Test Item Value Reference Range Interpretation Comments GLUCOSE (test code = 2217) 97 MG/DL BUN (test code = 2208) 9 MG/DL CREATININE (test code = 2214) 0.51 MG/DL eGFR AMER. (test code 120 ML/MIN/1.73 = 08855) eGFR NON- AMER. (test 104 ML/MIN/1.73 code = 93231) CALC BUN/CREAT (test code = 18 RATIO [...] CALC GLOBULIN (test code = 4.3 G/DL 224) CALC A/G RATIO (test code = 0.9 RATIO 2234) BILIRUBIN, TOTAL (test code = 0.4 MG/DL 2206) ALKALINE PHOSPHATASE (test 89 U/L code = 2204) AST (test code = 2218) 49 U/L ALT (test code = 2219) 47 U/L COMPREHENSIVE METABOLIC [id number] 00:00:00 Test Item Value Reference Range Interpretation Comments GLUCOSE (test code = 2217) 97 MG/DL BUN (test code = 2208) 9 MG/DL CREATININE (test code = 2214) 0.51 MG/DL eGFR AMER. (test code 120 ML/MIN/1.73 = 01049) eGFR NON- AMER. (test 104 ML/MIN/1.73 code = 41972) CALC BUN/CREAT (test code = 18 RATIO [...] A/G RATIO (test code = 0.9 RATIO 4) BILIRUBIN, TOTAL (test code = 0.4 MG/DL 2206) ALKALINE PHOSPHATASE (test 89 U/L code = 2204) AST (test code = 2218) 49 U/L ALT (test code = 2219) 47 U/L VITAMIN D,1,42-[id number] 00:00:00 Test Item Value Reference Range Interpretation Comments VITAMIN D,1,25-DIHYDROXY (test 42.2 PG/ML code = 4960) VITAMIN D,1,85-[id number] 00:00:00 Test Item Value Reference Range Interpretation Comments VITAMIN D,1,25-DIHYDROXY (test 42.2 PG/ML code = 4960) CBC W/AUTO [id number] 00:00:00 Test Item Value Reference Range Interpretation [...] code = 1015) 184 K/UL CBC W/AUTO [id number] 00:00:00 Test Item Value Reference Range Interpretation [...] code = 1015) 184 K/UL CBC W/AUTO [id number] 00:00:00 Test Item Value Reference Range Interpretation [...] code = 1015) 184 K/UL COMPREHENSIVE METABOLIC [id number] 00:00:00 Test Item Value Reference Range Interpretation Comments GLUCOSE (test code = 2217) 97 MG/DL BUN (test code = 2208) 9 MG/DL CREATININE (test code = 2214) 0.51 MG/DL eGFR AMER. (test code 120 ML/MIN/1.73 = 04101) eGFR NON- AMER. (test 104 ML/MIN/1.73 code = 15848) CALC BUN/CREAT (test code = 18 RATIO [...] code = 2219) 47 U/L COMPREHENSIVE METABOLIC [id number] 00:00:00 Test Item Value Reference Range Interpretation Comments GLUCOSE (test code = 2217) 97 MG/DL BUN (test code = 2208) 9 MG/DL CREATININE (test code = 2214) 0.51 MG/DL eGFR AMER. (test code 120 ML/MIN/1.73 = 80340) eGFR NON- AMER. (test 104 ML/MIN/1.73 code = 97211) CALC BUN/CREAT (test code = 18 RATIO [...] (test code = 2219) 47 U/L VITAMIN D,1,98-[id number] 00:00:00 Test Item Value Reference Range Interpretation Comments VITAMIN D,1,25-DIHYDROXY (test 42.2 PG/ML code = 4960) VITAMIN D,1,86-[id number] 00:00:00 Test Item Value Reference Range Interpretation Comments VITAMIN D,1,25-DIHYDROXY (test 42.2 PG/ML code = 4960) CBC W/AUTO [id number] 00:00:00 Test Item Value Reference Range Interpretation [...] code = 1015) 184 K/UL CBC W/AUTO [id number] 00:00:00 Test Item Value Reference Range Interpretation [...] code = 1015) 184 K/UL CBC W/AUTO [id number] 00:00:00 Test Item Value Reference Range Interpretation [...] code = 1015) 184 K/UL COMPREHENSIVE METABOLIC [id number] 00:00:00 Test Item Value Reference Range Interpretation Comments GLUCOSE (test code = 2217) 97 MG/DL BUN (test code = 2208) 9 MG/DL CREATININE (test code = 2214) 0.51 MG/DL eGFR AMER. (test code 120 ML/MIN/1.73 = 52943) eGFR NON- AMER. (test 104 ML/MIN/1.73 code = 51883) CALC BUN/CREAT (test code = 18 RATIO [...] code = 2219) 47 U/L COMPREHENSIVE METABOLIC [id number] 00:00:00 Test Item Value Reference Range Interpretation Comments GLUCOSE (test code = 2217) 97 MG/DL BUN (test code = 2208) 9 MG/DL CREATININE (test code = 2214) 0.51 MG/DL eGFR AMER. (test code 120 ML/MIN/1.73 = 89160) eGFR NON- AMER. (test 104 ML/MIN/1.73 code = 62206) CALC BUN/CREAT (test code = 18 RATIO [...] ALT (test code = 2219) 47 U/L HPV HIGH RISK WITH GENOTYPE, [id number] 00:00:00 Test Item Value Reference Range Interpretation Comments HPV HIGH RISK INTERP (test code = NEGATIVE 56568) HPV 16 (test code = 74997) NEGATIVE HPV 18 (test code = 55607) NEGATIVE HPV, HR, OTHER GENOTYPES (test code NEGATIVE = 59702) PAP TEST, THINPREP, [id number] 00:00:00 Test Item Value Reference Range Interpretation Comments SOURCE: (test code = Cervical/Endocervical 8001) SLIDES: (test code = 1 8011) LMP: (test code = 8021) SPECIMEN ADEQUACY: (test (NOTE) code = 63630) INTERPRETATION: (test NO EPITHELIAL code = 42924) ABNORMALITY SEE BELOW OTHER COMMENTS: (test (NOTE) code = 8081) FOREIGN LANGUAGE STENOGRAPHER: (test FLAVIA code = 8101) MARGO LANIER(ASCP) PATHOLOGIST Michelle Ferrari, INTERPRETATION BY: (test M.D. code = 8122) LOCATION: (test code = (NOTE) 30094) CPT: (test code = 8140) (NOTE) PAP TEST, THINPREP, [id number] 00:00:00 Test Item Value Reference Range Interpretation Comments SOURCE: (test code = Cervical/Endocervical 8001) SLIDES: (test code = 1 8011) LMP: (test code = 8021) SPECIMEN ADEQUACY: (test (NOTE) code = 03221) INTERPRETATION: (test NO EPITHELIAL code = 93517) ABNORMALITY SEE BELOW OTHER COMMENTS: (test (NOTE) code = 8081) FOREIGN LANGUAGE STENOGRAPHER: (test FLAVIA code = 8101) MARGO LANIER(ASCP) PATHOLOGIST Michelle Ferrari, INTERPRETATION BY: (test M.D. code = 8122) LOCATION: (test code = (NOTE) 15068) CPT: (test code = 8140) (NOTE) HPV HIGH RISK WITH GENOTYPE, [id number] 00:00:00 Test Item Value Reference Range Interpretation Comments HPV HIGH RISK INTERP (test code = NEGATIVE 52658) HPV 16 (test code = 73972) NEGATIVE HPV 18 (test code = 69151) NEGATIVE HPV, HR, OTHER GENOTYPES (test code NEGATIVE = 41932) HPV HIGH RISK WITH GENOTYPE, [id number] 00:00:00 Test Item Value Reference Range Interpretation Comments HPV HIGH RISK INTERP (test code = NEGATIVE 55316) HPV 16 (test code = 79432) NEGATIVE HPV 18 (test code = 88451) NEGATIVE HPV, HR, OTHER GENOTYPES (test code NEGATIVE = 46188) PAP TEST, THINPREP, [id number] 00:00:00 Test Item Value Reference Range Interpretation Comments SOURCE: (test code = Cervical/Endocervical 8001) SLIDES: (test code = 1 8011) LMP: (test code = 8021) SPECIMEN ADEQUACY: (test (NOTE) code = 01619) INTERPRETATION: (test NO EPITHELIAL code = 73697) ABNORMALITY SEE BELOW OTHER COMMENTS: (test (NOTE) code = 8081) FOREIGN LANGUAGE STENOGRAPHER: (test FLAVIA code = 8101) MARGO LANIER(ASCP) PATHOLOGIST Michelle Ferrari, INTERPRETATION BY: (test M.D. code = 8122) LOCATION: (test code = (NOTE) 79430) CPT: (test code = 8140) (NOTE) PAP TEST, THINPREP, [id number] 00:00:00 Test Item Value Reference Range Interpretation Comments SOURCE: (test code = Cervical/Endocervical 8001) SLIDES: (test code = 1 8011) LMP: (test code = 8021) SPECIMEN ADEQUACY: (test (NOTE) code = 01750) INTERPRETATION: (test NO EPITHELIAL code = 22232) ABNORMALITY SEE BELOW OTHER COMMENTS: (test (NOTE) code = 8081) FOREIGN LANGUAGE STENOGRAPHER: (test FLAVIA code = 8101) MARGO LANIER(ASCP) PATHOLOGIST Michelle Ferrari, INTERPRETATION BY: (test M.D. code = 8122) LOCATION: (test code = (NOTE) 32313) CPT: (test code = 8140) (NOTE) HPV HIGH RISK WITH GENOTYPE, [id number] 00:00:00 Test Item Value Reference Range Interpretation Comments HPV HIGH RISK INTERP (test code = NEGATIVE 87359) HPV 16 (test code = 34130) NEGATIVE HPV 18 (test code = 89761) NEGATIVE HPV, HR, OTHER GENOTYPES (test code NEGATIVE = 50312) HPV HIGH RISK WITH GENOTYPE, [id number] 00:00:00 Test Item Value Reference Range Interpretation Comments HPV HIGH RISK INTERP (test code = NEGATIVE 91891) HPV 16 (test code = 48323) NEGATIVE HPV 18 (test code = 91900) NEGATIVE HPV, HR, OTHER GENOTYPES (test code NEGATIVE = 23187) PAP TEST, THINPREP, [id number] 00:00:00 Test Item Value Reference Range Interpretation Comments SOURCE: (test code = Cervical/Endocervical 8001) SLIDES: (test code = 1 8011) LMP: (test code = 8021) SPECIMEN ADEQUACY: (test (NOTE) code = 40851) INTERPRETATION: (test NO EPITHELIAL code = 87468) ABNORMALITY SEE BELOW OTHER COMMENTS: (test (NOTE) code = 8081) FOREIGN LANGUAGE STENOGRAPHER: (test FLAVIA code = 8101) MARGO LANIER(ASCP) PATHOLOGIST Michelle Ferrari, INTERPRETATION BY: (test M.D. code = 8122) LOCATION: (test code = (NOTE) 37181) CPT: (test code = 8140) (NOTE) PAP TEST, THINPREP, [id number] 00:00:00 Test Item Value Reference Range Interpretation Comments SOURCE: (test code = Cervical/Endocervical 8001) SLIDES: (test code = 1 8011) LMP: (test code = 8021) SPECIMEN ADEQUACY: (test (NOTE) code = 86966) INTERPRETATION: (test NO EPITHELIAL code = 31687) ABNORMALITY SEE BELOW OTHER COMMENTS: (test (NOTE) code = 8081) FOREIGN LANGUAGE STENOGRAPHER: (test FLAVIA code = 8101) MARGO LANIER(ASCP) PATHOLOGIST Michelle Ferrari, INTERPRETATION BY: (test M.D. code = 8122) LOCATION: (test code = (NOTE) 96359) CPT: (test code = 8140) (NOTE) HPV HIGH RISK WITH GENOTYPE, [id number] 00:00:00 Test Item Value Reference Range Interpretation Comments HPV HIGH RISK INTERP (test code = NEGATIVE 56898) HPV 16 (test code = 06235) NEGATIVE HPV 18 (test code = 31784) NEGATIVE HPV, HR, OTHER GENOTYPES (test code NEGATIVE = 90445) COMPREHENSIVE METABOLIC [id number] 00:00:00 Test Item Value Reference Range Interpretation Comments GLUCOSE (test code = 2217) 94 MG/DL BUN (test code = 2208) 5 MG/DL CREATININE (test code = 2214) 0.61 MG/DL eGFR AMER. (test code 114 ML/MIN/1.73 = 74644) eGFR NON- AMER. (test 99 ML/MIN/1.73 code = 65190) CALC BUN/CREAT (test code = 8 RATIO [...] CALC GLOBULIN (test code = 3.5 G/DL 224) CALC A/G RATIO (test code = 1.3 RATIO 2234) BILIRUBIN, TOTAL (test code = 0.4 MG/DL 2206) ALKALINE PHOSPHATASE (test 86 U/L code = 2204) AST (test code = 2218) 67 U/L ALT (test code = 2219) 57 U/L LIPID [id number] 00:00:00 Test Item Value Reference Range Interpretation Comments CHOLESTEROL (test code = 2210) 157 MG/DL TRIGLYCERIDES (test code = 2232) 58 MG/DL HDL CHOLESTEROL (test code = 2220) 76 MG/DL CALC LDL CHOL (test code = 2237) 69 MG/DL RISK RATIO LDL/HDL (test code = 0.91 RATIO 2238) LIPID [id number] 00:00:00 Test Item Value Reference Range Interpretation Comments CHOLESTEROL (test code = 2210) 157 MG/DL TRIGLYCERIDES (test code = 2232) 58 MG/DL HDL CHOLESTEROL (test code = 2220) 76 MG/DL CALC LDL CHOL (test code = 2237) 69 MG/DL RISK RATIO LDL/HDL (test code = 0.91 RATIO 2238) CBC W/AUTO [id number] 00:00:00 Test Item Value Reference Range Interpretation [...] code = 1015) 191 K/UL CBC W/AUTO [id number] 00:00:00 Test Item Value Reference Range Interpretation [...] code = 1015) 191 K/UL CBC W/AUTO [id number] 00:00:00 Test Item Value Reference Range Interpretation [...] (test code = 1015) 191 K/UL HEMOGLOBIN [id number] 00:00:00 Test Item Value Reference Range Interpretation Comments HEMOGLOBIN A1c (test code = 85749) 5.5 % HEMOGLOBIN [id number] 00:00:00 Test Item Value Reference Range Interpretation Comments HEMOGLOBIN A1c (test code = 84055) 5.5 % HEMOGLOBIN [id number] 00:00:00 Test Item Value Reference Range Interpretation Comments HEMOGLOBIN A1c (test code = 56302) 5.5 % [id number] 00:00:00 Test Item Value Reference Range Interpretation Comments TSH (test code = 2821) 2.73 UIU/ML [id number] 00:00:00 Test Item Value Reference Range Interpretation Comments TSH (test code = 2821) 2.73 UIU/ML [id number] 00:00:00 Test Item Value Reference Range Interpretation Comments TSH (test code = 2821) 2.73 UIU/ML VITAMIN [id number] 00:00:00 Test Item Value Reference Range Interpretation Comments VITAMIN B-12 (test code = 2840) 915 PG/ML VITAMIN [id number] 00:00:00 Test Item Value Reference Range Interpretation Comments VITAMIN B-12 (test code = 2840) 915 PG/ML VITAMIN [id number] 00:00:00 Test Item Value Reference Range Interpretation Comments VITAMIN B-12 (test code = 2840) 915 PG/ML VITAMIN D, 25 [id number] 00:00:00 Test Item Value Reference Range Interpretation Comments VITAMIN D, 25 OH (test code = 4958) 24 NG/ML VITAMIN D, 25 [id number] 00:00:00 Test Item Value Reference Range Interpretation Comments VITAMIN D, 25 OH (test code = 4958) 24 NG/ML ACUTE HEPATITIS [id number] 00:00:00 Test Item Value Reference Range Interpretation Comments HEPATITIS A IgM (test code = NON-REACTIVE 01268) HEPATITIS B CORE IgM (test code NON-REACTIVE = 4644) HEPATITIS B SURF AG (test code = NON-REACTIVE 2739) HEPATITIS C ANTIBODY (test code REACTIVE = 4675) INTERPRETATION HEPATITIS A: (NOTE) (test code = 2552) INTERPRETATION HEPATITIS B: (NOTE) (test code = 80044) INTERPRETATION HEPATITIS C: (NOTE) (test code = 91043) ACUTE HEPATITIS [id number] 00:00:00 Test Item Value Reference Range Interpretation Comments HEPATITIS A IgM (test code = NON-REACTIVE 08413) HEPATITIS B CORE IgM (test code NON-REACTIVE = 4644) HEPATITIS B SURF AG (test code = NON-REACTIVE 8649) HEPATITIS C ANTIBODY (test code REACTIVE = 4653) INTERPRETATION HEPATITIS A: (NOTE) (test code = 2552) INTERPRETATION HEPATITIS B: (NOTE) (test code = 73764) INTERPRETATION HEPATITIS C: (NOTE) (test code = 40777) COMPREHENSIVE METABOLIC [id number] 00:00:00 Test Item Value Reference Range Interpretation Comments GLUCOSE (test code = 2217) 94 MG/DL BUN (test code = 2208) 5 MG/DL CREATININE (test code = 2214) 0.61 MG/DL eGFR AMER. (test code 114 ML/MIN/1.73 = 61429) eGFR NON- AMER. (test 99 ML/MIN/1.73 code = 53309) CALC BUN/CREAT (test code = 8 RATIO [...] code = 2219) 57 U/L COMPREHENSIVE METABOLIC [id number] 00:00:00 Test Item Value Reference Range Interpretation Comments GLUCOSE (test code = 2217) 94 MG/DL BUN (test code = 2208) 5 MG/DL CREATININE (test code = 2214) 0.61 MG/DL eGFR AMER. (test code 114 ML/MIN/1.73 = 42118) eGFR NON- AMER. (test 99 ML/MIN/1.73 code = 90991) CALC BUN/CREAT (test code = 8 RATIO [...] (test code = 2219) 57 U/L LIPID [id number] 00:00:00 Test Item Value Reference Range Interpretation Comments CHOLESTEROL (test code = 2210) 157 MG/DL TRIGLYCERIDES (test code = 2232) 58 MG/DL HDL CHOLESTEROL (test code = 2220) 76 MG/DL CALC LDL CHOL (test code = 2237) 69 MG/DL RISK RATIO LDL/HDL (test code = 0.91 RATIO 2238) LIPID [id number] 00:00:00 Test Item Value Reference Range Interpretation Comments CHOLESTEROL (test code = 2210) 157 MG/DL TRIGLYCERIDES (test code = 2232) 58 MG/DL HDL CHOLESTEROL (test code = 2220) 76 MG/DL CALC LDL CHOL (test code = 2237) 69 MG/DL RISK RATIO LDL/HDL (test code = 0.91 RATIO 2238) CBC W/AUTO [id number] 00:00:00 Test Item Value Reference Range Interpretation [...] code = 1015) 191 K/UL CBC W/AUTO [id number] 00:00:00 Test Item Value Reference Range Interpretation [...] code = 1015) 191 K/UL CBC W/AUTO [id number] 00:00:00 Test Item Value Reference Range Interpretation [...] (test code = 1015) 191 K/UL HEMOGLOBIN [id number] 00:00:00 Test Item Value Reference Range Interpretation Comments HEMOGLOBIN A1c (test code = 13079) 5.5 % HEMOGLOBIN [id number] 00:00:00 Test Item Value Reference Range Interpretation Comments HEMOGLOBIN A1c (test code = 92640) 5.5 % HEMOGLOBIN [id number] 00:00:00 Test Item Value Reference Range Interpretation Comments HEMOGLOBIN A1c (test code = 30684) 5.5 % [id number] 00:00:00 Test Item Value Reference Range Interpretation Comments TSH (test code = 2821) 2.73 UIU/ML [id number] 00:00:00 Test Item Value Reference Range Interpretation Comments TSH (test code = 2821) 2.73 UIU/ML [id number] 00:00:00 Test Item Value Reference Range Interpretation Comments TSH (test code = 2821) 2.73 UIU/ML VITAMIN [id number] 00:00:00 Test Item Value Reference Range Interpretation Comments VITAMIN B-12 (test code = 2840) 915 PG/ML VITAMIN [id number] 00:00:00 Test Item Value Reference Range Interpretation Comments VITAMIN B-12 (test code = 2840) 915 PG/ML VITAMIN [id number] 00:00:00 Test Item Value Reference Range Interpretation Comments VITAMIN B-12 (test code = 2840) 915 PG/ML VITAMIN D, 25 [id number] 00:00:00 Test Item Value Reference Range Interpretation Comments VITAMIN D, 25 OH (test code = 4958) 24 NG/ML VITAMIN D, 25 [id number] 00:00:00 Test Item Value Reference Range Interpretation Comments VITAMIN D, 25 OH (test code = 4958) 24 NG/ML ACUTE HEPATITIS [id number] 00:00:00 Test Item Value Reference Range Interpretation Comments HEPATITIS A IgM (test code = NON-REACTIVE 72655) HEPATITIS B CORE IgM (test code NON-REACTIVE = 4644) HEPATITIS B SURF AG (test code = NON-REACTIVE 2739) HEPATITIS C ANTIBODY (test code REACTIVE = 4675) INTERPRETATION HEPATITIS A: (NOTE) (test code = 2552) INTERPRETATION HEPATITIS B: (NOTE) (test code = 93739) INTERPRETATION HEPATITIS C: (NOTE) (test code = 45342) ACUTE HEPATITIS [id number] 00:00:00 Test Item Value Reference Range Interpretation Comments HEPATITIS A IgM (test code = NON-REACTIVE 62194) HEPATITIS B CORE IgM (test code NON-REACTIVE = 4644) HEPATITIS B SURF AG (test code = NON-REACTIVE 2789) HEPATITIS C ANTIBODY (test code REACTIVE = 4621) INTERPRETATION HEPATITIS A: (NOTE) (test code = 2552) INTERPRETATION HEPATITIS B: (NOTE) (test code = 80005) INTERPRETATION HEPATITIS C: (NOTE) (test code = 00705) COMPREHENSIVE METABOLIC [id number] 00:00:00 Test Item Value Reference Range Interpretation Comments GLUCOSE (test code = 2217) 94 MG/DL BUN (test code = 2208) 5 MG/DL CREATININE (test code = 2214) 0.61 MG/DL eGFR AMER. (test code 114 ML/MIN/1.73 = 45879) eGFR NON- AMER. (test 99 ML/MIN/1.73 code = 59115) CALC BUN/CREAT (test code = 8 RATIO [...] code = 2219) 57 U/L COMPREHENSIVE METABOLIC [id number] 00:00:00 Test Item Value Reference Range Interpretation Comments GLUCOSE (test code = 2217) 94 MG/DL BUN (test code = 2208) 5 MG/DL CREATININE (test code = 2214) 0.61 MG/DL eGFR AMER. (test code 114 ML/MIN/1.73 = 39624) eGFR NON- AMER. (test 99 ML/MIN/1.73 code = 16131) CALC BUN/CREAT (test code = 8 RATIO [...] (test code = 2219) 57 U/L LIPID [id number] 00:00:00 Test Item Value Reference Range Interpretation Comments CHOLESTEROL (test code = 2210) 157 MG/DL TRIGLYCERIDES (test code = 2232) 58 MG/DL HDL CHOLESTEROL (test code = 2220) 76 MG/DL CALC LDL CHOL (test code = 2237) 69 MG/DL RISK RATIO LDL/HDL (test code = 0.91 RATIO 2238) LIPID [id number] 00:00:00 Test Item Value Reference Range Interpretation Comments CHOLESTEROL (test code = 2210) 157 MG/DL TRIGLYCERIDES (test code = 2232) 58 MG/DL HDL CHOLESTEROL (test code = 2220) 76 MG/DL CALC LDL CHOL (test code = 2237) 69 MG/DL RISK RATIO LDL/HDL (test code = 0.91 RATIO 2238) CBC W/AUTO [id number] 00:00:00 Test Item Value Reference Range Interpretation [...] code = 1015) 191 K/UL CBC W/AUTO [id number] 00:00:00 Test Item Value Reference Range Interpretation [...] code = 1015) 191 K/UL CBC W/AUTO [id number] 00:00:00 Test Item Value Reference Range Interpretation [...] (test code = 1015) 191 K/UL HEMOGLOBIN [id number] 00:00:00 Test Item Value Reference Range Interpretation Comments HEMOGLOBIN A1c (test code = 83349) 5.5 % HEMOGLOBIN [id number] 00:00:00 Test Item Value Reference Range Interpretation Comments HEMOGLOBIN A1c (test code = 67875) 5.5 % HEMOGLOBIN [id number] 00:00:00 Test Item Value Reference Range Interpretation Comments HEMOGLOBIN A1c (test code = 59587) 5.5 % [id number] 00:00:00 Test Item Value Reference Range Interpretation Comments TSH (test code = 2821) 2.73 UIU/ML [id number] 00:00:00 Test Item Value Reference Range Interpretation Comments TSH (test code = 2821) 2.73 UIU/ML [id number] 00:00:00 Test Item Value Reference Range Interpretation Comments TSH (test code = 2821) 2.73 UIU/ML VITAMIN [id number] 00:00:00 Test Item Value Reference Range Interpretation Comments VITAMIN B-12 (test code = 2840) 915 PG/ML VITAMIN [id number] 00:00:00 Test Item Value Reference Range Interpretation Comments VITAMIN B-12 (test code = 2840) 915 PG/ML VITAMIN [id number] 00:00:00 Test Item Value Reference Range Interpretation Comments VITAMIN B-12 (test code = 2840) 915 PG/ML VITAMIN D, 25 [id number] 00:00:00 Test Item Value Reference Range Interpretation Comments VITAMIN D, 25 OH (test code = 4958) 24 NG/ML VITAMIN D, 25 [id number] 00:00:00 Test Item Value Reference Range Interpretation Comments VITAMIN D, 25 OH (test code = 4958) 24 NG/ML ACUTE HEPATITIS [id number] 00:00:00 Test Item Value Reference Range Interpretation Comments HEPATITIS A IgM (test code = NON-REACTIVE 49668) HEPATITIS B CORE IgM (test code NON-REACTIVE = 4644) HEPATITIS B SURF AG (test code = NON-REACTIVE 2739) HEPATITIS C ANTIBODY (test code REACTIVE = 4675) INTERPRETATION HEPATITIS A: (NOTE) (test code = 2552) INTERPRETATION HEPATITIS B: (NOTE) (test code = 51516) INTERPRETATION HEPATITIS C: (NOTE) (test code = 66238) ACUTE HEPATITIS [id number] 00:00:00 Test Item Value Reference Range Interpretation Comments HEPATITIS A IgM (test code = NON-REACTIVE 10228) HEPATITIS B CORE IgM (test code NON-REACTIVE = 4644) HEPATITIS B SURF AG (test code = NON-REACTIVE 2739) HEPATITIS C ANTIBODY (test code REACTIVE = 4675) INTERPRETATION HEPATITIS A: (NOTE) (test code = 2552) INTERPRETATION HEPATITIS B: (NOTE) (test code = 73705) INTERPRETATION HEPATITIS C: (NOTE) (test code = 77823) COMPREHENSIVE METABOLIC [id number] 00:00:00 Test Item Value Reference Range Interpretation Comments GLUCOSE (test code = 2217) 94 MG/DL BUN (test code = 2208) 5 MG/DL CREATININE (test code = 2214) 0.61 MG/DL eGFR AMER. (test code 114 ML/MIN/1.73 = 90898) eGFR NON- AMER. (test 99 ML/MIN/1.73 code = 28136) CALC BUN/CREAT (test code = 8 RATIO [...] ALT (test code = 2219) 57 U/L CK, [id number] 00:00:00 Test Item Value Reference Range Interpretation Comments CK, TOTAL (test code = 2013) 157 U/L TROPONIN [id number] 00:00:00 Test Item Value Reference Range Interpretation Comments TROPONIN I (test code = 5949) <0.040 NG/ML HEPATITIS PROFILE (A,B,C)2015-04-23 00:00:00 Test Item Value Reference Range Interpretation Comments HEPATITIS A TOTAL AB (test code REACTIVE = 0125) HEPATITIS B SURF AG (test code = NON-REACTIVE 2738) HEP B CORE TOTAL AB (test code = REACTIVE 2728) HEPATITIS B SURFACE AB (test REACTIVE code = 2737) HEPATITIS C ANTIBODY (test code REACTIVE = 4675) INTERPRETATION HEPATITIS A: (NOTE) (test code = 2552) INTERPRETATION HEPATITIS B: (NOTE) (test code = 82111) INTERPRETATION HEPATITIS C: (NOTE) (test code = 62454) HEPATITIS PROFILE (A,B,C)2015-04-23 00:00:00 Test Item Value [...] INTERPRETATION HEPATITIS B: (NOTE) (test code = 08758) INTERPRETATION HEPATITIS C: (NOTE) (test code = 24166) [id number] 00:00:00 Test Item Value Reference Range Interpretation Comments CKMB (test code = 92025) 0.9 NG/ML [id number] 00:00:00 Test Item Value Reference Range Interpretation Comments CKMB (test code = 51366) 0.9 NG/ML HEPATITIS A IgM [REFLEX]2015-04-23 00:00:00 Test Item Value Reference Range Interpretation Comments HEPATITIS A IgM (test code = NON-REACTIVE 8) COMPREHENSIVE METABOLIC [id number] 00:00:00 Test Item Value Reference Range Interpretation Comments GLUCOSE (test code = 2217) 80 MG/DL BUN (test code = 2208) 13 MG/DL CREATININE (test code = 2214) 0.6 MG/DL eGFR AMER. (test code 124 ML/MIN/1.73 = 56899) eGFR NON- AMER. (test 102 ML/MIN/1.73 code = 68401) CALCULATED BUN/CREAT (test 22 RATIO code = 2235) SODIUM (test code = 2231) 135 MEQ/L POTASSIUM (test code = 2228) 4.9 MEQ/L CHLORIDE (test code = 2215) 100 MEQ/L CARBON DIOXIDE (test code = 17 MEQ/L 2206) CALCIUM (test code = 2209) [...] code = 2219) 73 U/L COMPREHENSIVE METABOLIC [id number] 00:00:00 Test Item Value Reference Range Interpretation Comments GLUCOSE (test code = 2217) 80 MG/DL BUN (test code = 2208) 13 MG/DL CREATININE (test code = 2214) 0.6 MG/DL eGFR AMER. (test code 124 ML/MIN/1.73 = 71788) eGFR NON- AMER. (test 102 ML/MIN/1.73 code = 63688) CALCULATED BUN/CREAT (test 22 RATIO code = [...] (test code = 2219) 73 U/L CK, [id number] 00:00:00 Test Item Value Reference Range Interpretation Comments CK, TOTAL (test code = 2013) 157 U/L CK, [id number] 00:00:00 Test Item Value Reference Range Interpretation Comments CK, TOTAL (test code = 2013) 157 U/L TROPONIN [id number] 00:00:00 Test Item Value Reference Range Interpretation [...] INTERPRETATION HEPATITIS B: (NOTE) (test code = 22849) INTERPRETATION HEPATITIS C: (NOTE) (test code = 34964) HEPATITIS PROFILE (A,B,C)2015-04-23 00:00:00 Test Item Value [...] INTERPRETATION HEPATITIS B: (NOTE) (test code = 69802) INTERPRETATION HEPATITIS C: (NOTE) (test code = 88154) [id number] 00:00:00 Test Item Value Reference Range Interpretation Comments CKMB (test code = 34053) 0.9 NG/ML [id number] 00:00:00 Test Item Value Reference Range Interpretation Comments CKMB (test code = 97623) 0.9 NG/ML HEPATITIS A IgM [REFLEX]2015-04-23 00:00:00 Test Item Value Reference Range Interpretation Comments HEPATITIS A IgM (test code = NON-REACTIVE 2727) COMPREHENSIVE METABOLIC [id number] 00:00:00 Test Item Value Reference Range Interpretation Comments GLUCOSE (test code = 2217) 80 MG/DL BUN (test code = 2208) 13 MG/DL CREATININE (test code = 2214) 0.6 MG/DL eGFR AMER. (test code 124 ML/MIN/1.73 = 93880) eGFR NON- AMER. (test 102 ML/MIN/1.73 code = 77956) CALCULATED BUN/CREAT (test 22 RATIO code = 2235) SODIUM (test code = 2231) 135 MEQ/L POTASSIUM (test code = 2228) 4.9 MEQ/L CHLORIDE (test code = 2215) 100 MEQ/L CARBON DIOXIDE (test code = 17 MEQ/L 220) CALCIUM (test code = 2209) [...] code = 2219) 73 U/L COMPREHENSIVE METABOLIC [id number] 00:00:00 Test Item Value Reference Range Interpretation Comments GLUCOSE (test code = 2217) 80 MG/DL BUN (test code = 2208) 13 MG/DL CREATININE (test code = 2214) 0.6 MG/DL eGFR AMER. (test code 124 ML/MIN/1.73 = 92441) eGFR NON- AMER. (test 102 ML/MIN/1.73 code = 79170) CALCULATED BUN/CREAT (test 22 RATIO code = [...] (test code = 2219) 73 U/L CK, [id number] 00:00:00 Test Item Value Reference Range Interpretation Comments CK, TOTAL (test code = 2013) 157 U/L CK, [id number] 00:00:00 Test Item Value Reference Range Interpretation Comments CK, TOTAL (test code = 2014) 157 U/L TROPONIN [id number] 00:00:00 Test Item Value Reference Range Interpretation [...] INTERPRETATION HEPATITIS B: (NOTE) (test code = 02788) INTERPRETATION HEPATITIS C: (NOTE) (test code = 48947) HEPATITIS PROFILE (A,B,C)2015-04-23 00:00:00 Test Item Value [...] INTERPRETATION HEPATITIS B: (NOTE) (test code = 75203) INTERPRETATION HEPATITIS C: (NOTE) (test code = 07392) [id number] 00:00:00 Test Item Value Reference Range Interpretation Comments CKMB (test code = 44304) 0.9 NG/ML [id number] 00:00:00 Test Item Value Reference Range Interpretation Comments CKMB (test code = 85117) 0.9 NG/ML HEPATITIS A IgM [REFLEX]2015-04-23 00:00:00 Test Item Value Reference Range Interpretation Comments HEPATITIS A IgM (test code = NON-REACTIVE 2727) COMPREHENSIVE METABOLIC [id number] 00:00:00 Test Item Value Reference Range Interpretation Comments GLUCOSE (test code = 2217) 80 MG/DL BUN (test code = 2208) 13 MG/DL CREATININE (test code = 2214) 0.6 MG/DL eGFR AMER. (test code 124 ML/MIN/1.73 = 23070) eGFR NON- AMER. (test 102 ML/MIN/1.73 code = 31451) CALCULATED BUN/CREAT (test 22 RATIO code = 2235) SODIUM (test code = 2231) 135 MEQ/L POTASSIUM (test code = 2228) 4.9 MEQ/L CHLORIDE (test code = 2215) 100 MEQ/L CARBON DIOXIDE (test code = 17 MEQ/L 2206) CALCIUM (test code = 2209) [...] code = 2219) 73 U/L COMPREHENSIVE METABOLIC [id number] 00:00:00 Test Item Value Reference Range Interpretation Comments GLUCOSE (test code = 2217) 80 MG/DL BUN (test code = 2208) 13 MG/DL CREATININE (test code = 2214) 0.6 MG/DL eGFR AMER. (test code 124 ML/MIN/1.73 = 17941) eGFR NON- AMER. (test 102 ML/MIN/1.73 code = 72375) CALCULATED BUN/CREAT (test 22 RATIO code = 2235) SODIUM (test code = 2231) 135 MEQ/L POTASSIUM (test code = 2228) 4.9 MEQ/L CHLORIDE (test code = 2215) 100 MEQ/L CARBON DIOXIDE (test code = 17 MEQ/L 2206) CALCIUM (test code = 2209) [...] (test code = 2219) 73 U/L CK, [id number] 00:00:00 Test Item Value Reference Range Interpretation Comments CK, TOTAL (test code = 2013) 157 U/L COMPREHENSIVE METABOLIC [id number] 00:00:00 Test Item Value Reference Range Interpretation Comments GLUCOSE (test code = 2217) 85 MG/DL BUN (test code = 2208) 10 MG/DL CREATININE (test code = 2214) 0.7 MG/DL eGFR AMER. (test code 104 ML/MIN/1.73 = 53885) eGFR NON- AMER. (test 86 ML/MIN/1.73 code = 08176) CALCULATED BUN/CREAT (test 14 RATIO code = [...] (ALT) (test code = 2219) 63 U/L [id number] 00:00:00 Test Item Value Reference Range Interpretation Comments TSH (test code = 2821) 0.7 UIU/ML [id number] 00:00:00 Test Item Value Reference Range Interpretation Comments TSH (test code = 2821) 0.7 UIU/ML [id number] 00:00:00 Test Item Value Reference Range Interpretation Comments TSH (test code = 2821) 0.7 UIU/ML LIPID [id number] 00:00:00 Test Item Value Reference Range Interpretation Comments CHOLESTEROL (test code = 2210) 147 MG/DL TRIGLYCERIDES (test code = 2232) 52 MG/DL HDL CHOLESTEROL (test code = 2220) 64 MG/DL CALCULATED LDL CHOL (test code = 73 MG/DL 2237) RISK RATIO LDL/HDL (test code = 1.13 RATIO 2238) LIPID [id number] 00:00:00 Test Item Value Reference Range Interpretation Comments CHOLESTEROL (test code = 2210) 147 MG/DL TRIGLYCERIDES (test code = 2232) 52 MG/DL HDL CHOLESTEROL (test code = 2220) 64 MG/DL CALCULATED LDL CHOL (test code = 73 MG/DL 2237) RISK RATIO LDL/HDL (test code = 1.13 RATIO 2238) CBC W/AUTO [id number] 00:00:00 Test Item Value Reference Range Interpretation [...] code = 1015) 163 K/UL CBC W/AUTO [id number] 00:00:00 Test Item Value Reference Range Interpretation [...] code = 1015) 163 K/UL CBC W/AUTO [id number] 00:00:00 Test Item Value Reference Range Interpretation [...] code = 1015) 163 K/UL COMPREHENSIVE METABOLIC [id number] 00:00:00 Test Item Value Reference Range Interpretation Comments GLUCOSE (test code = 2217) 85 MG/DL BUN (test code = 2208) 10 MG/DL CREATININE (test code = 2214) 0.7 MG/DL eGFR AMER. (test code 104 ML/MIN/1.73 = 81758) eGFR NON- AMER. (test 86 ML/MIN/1.73 code = 00437) CALCULATED BUN/CREAT (test 14 RATIO code = [...] code = 2219) 63 U/L COMPREHENSIVE METABOLIC [id number] 00:00:00 Test Item Value Reference Range Interpretation Comments GLUCOSE (test code = 2217) 85 MG/DL BUN (test code = 2208) 10 MG/DL CREATININE (test code = 2214) 0.7 MG/DL eGFR AMER. (test code 104 ML/MIN/1.73 = 89550) eGFR NON- AMER. (test 86 ML/MIN/1.73 code = 44221) CALCULATED BUN/CREAT (test 14 RATIO code = [...] (ALT) (test code = 2219) 63 U/L [id number] 00:00:00 Test Item Value Reference Range Interpretation Comments TSH (test code = 2821) 0.7 UIU/ML [id number] 00:00:00 Test Item Value Reference Range Interpretation Comments TSH (test code = 2821) 0.7 UIU/ML [id number] 00:00:00 Test Item Value Reference Range Interpretation Comments TSH (test code = 2821) 0.7 UIU/ML LIPID [id number] 00:00:00 Test Item Value Reference Range Interpretation Comments CHOLESTEROL (test code = 2210) 147 MG/DL TRIGLYCERIDES (test code = 2232) 52 MG/DL HDL CHOLESTEROL (test code = 2220) 64 MG/DL CALCULATED LDL CHOL (test code = 73 MG/DL 2236) RISK RATIO LDL/HDL (test code = 1.13 RATIO 2238) LIPID [id number] 00:00:00 Test Item Value Reference Range Interpretation Comments CHOLESTEROL (test code = 2210) 147 MG/DL TRIGLYCERIDES (test code = 2232) 52 MG/DL HDL CHOLESTEROL (test code = 2220) 64 MG/DL CALCULATED LDL CHOL (test code = 73 MG/DL 2237) RISK RATIO LDL/HDL (test code = 1.13 RATIO 2238) CBC W/AUTO [id number] 00:00:00 Test Item Value Reference Range Interpretation [...] code = 1015) 163 K/UL CBC W/AUTO [id number] 00:00:00 Test Item Value Reference Range Interpretation [...] code = 1015) 163 K/UL CBC W/AUTO [id number] 00:00:00 Test Item Value Reference Range Interpretation [...] code = 1015) 163 K/UL COMPREHENSIVE METABOLIC [id number] 00:00:00 Test Item Value Reference Range Interpretation Comments GLUCOSE (test code = 2217) 85 MG/DL BUN (test code = 2208) 10 MG/DL CREATININE (test code = 2214) 0.7 MG/DL eGFR AMER. (test code 104 ML/MIN/1.73 = 56172) eGFR NON- AMER. (test 86 ML/MIN/1.73 code = 88731) CALCULATED BUN/CREAT (test 14 RATIO code = [...] code = 2219) 63 U/L COMPREHENSIVE METABOLIC [id number] 00:00:00 Test Item Value Reference Range Interpretation Comments GLUCOSE (test code = 2217) 85 MG/DL BUN (test code = 2208) 10 MG/DL CREATININE (test code = 2214) 0.7 MG/DL eGFR AMER. (test code 104 ML/MIN/1.73 = 71832) eGFR NON- AMER. (test 86 ML/MIN/1.73 code = 23562) CALCULATED BUN/CREAT (test 14 RATIO code = [...] (ALT) (test code = 2219) 63 U/L [id number] 00:00:00 Test Item Value Reference Range Interpretation Comments TSH (test code = 2821) 0.7 UIU/ML [id number] 00:00:00 Test Item Value Reference Range Interpretation Comments TSH (test code = 2821) 0.7 UIU/ML [id number] 00:00:00 Test Item Value Reference Range Interpretation Comments TSH (test code = 2821) 0.7 UIU/ML LIPID [id number] 00:00:00 Test Item Value Reference Range Interpretation Comments CHOLESTEROL (test code = 2210) 147 MG/DL TRIGLYCERIDES (test code = 2232) 52 MG/DL HDL CHOLESTEROL (test code = 2220) 64 MG/DL CALCULATED LDL CHOL (test code = 73 MG/DL 2236) RISK RATIO LDL/HDL (test code = 1.13 RATIO 8) LIPID [id number] 00:00:00 Test Item Value Reference Range Interpretation Comments CHOLESTEROL (test code = 2210) 147 MG/DL TRIGLYCERIDES (test code = 2232) 52 MG/DL HDL CHOLESTEROL (test code = 2220) 64 MG/DL CALCULATED LDL CHOL (test code = 73 MG/DL 2237) RISK RATIO LDL/HDL (test code = 1.13 RATIO 2238) CBC W/AUTO [id number] 00:00:00 Test Item Value Reference Range Interpretation [...] code = 1015) 163 K/UL CBC W/AUTO [id number] 00:00:00 Test Item Value Reference Range Interpretation [...] code = 1015) 163 K/UL CBC W/AUTO [id number] 00:00:00 Test Item Value Reference Range Interpretation [...] code = 1015) 163 K/UL COMPREHENSIVE METABOLIC [id number] 00:00:00 Test Item Value Reference Range Interpretation Comments GLUCOSE (test code = 2217) 85 MG/DL BUN (test code = 2208) 10 MG/DL CREATININE (test code = 2214) 0.7 MG/DL eGFR AMER. (test code 104 ML/MIN/1.73 = 57884) eGFR NON- AMER. (test 86 ML/MIN/1.73 code = 83057) CALCULATED BUN/CREAT (test 14 RATIO code = [...] (ALT) (test code = 2219) 63 U/L HPV HIGH RISK WITH GENOTYPE, [id number] 00:00:00 Test Item Value Reference Range Interpretation Comments HPV HIGH RISK INTERP (test code = POSITIVE 44278) HPV 16 (test code = 98152) NEGATIVE HPV 18 (test code = 39709) NEGATIVE HPV, HR, OTHER GENOTYPES (test code POSITIVE = 88297) HPV HIGH RISK WITH GENOTYPE, [id number] 00:00:00 Test Item Value Reference Range Interpretation Comments HPV HIGH RISK INTERP (test code = POSITIVE 01874) HPV 16 (test code = 58331) NEGATIVE HPV 18 (test code = 17872) NEGATIVE HPV, HR, OTHER GENOTYPES (test code POSITIVE = 19557) HPV HIGH RISK WITH GENOTYPE, [id number] 00:00:00 Test Item Value Reference Range Interpretation Comments HPV HIGH RISK INTERP (test code = POSITIVE 39829) HPV 16 (test code = 81898) NEGATIVE HPV 18 (test code = 60131) NEGATIVE HPV, HR, OTHER GENOTYPES (test code POSITIVE = 83873) HPV HIGH RISK WITH GENOTYPE, [id number] 00:00:00 Test Item Value Reference Range Interpretation Comments HPV HIGH RISK INTERP (test code = POSITIVE 93977) HPV 16 (test code = 63595) NEGATIVE HPV 18 (test code = 45122) NEGATIVE HPV, HR, OTHER GENOTYPES (test code POSITIVE = 54787) HPV HIGH RISK WITH GENOTYPE, [id number] 00:00:00 Test Item Value Reference Range Interpretation Comments HPV HIGH RISK INTERP (test code = POSITIVE 31413) HPV 16 (test code = 57761) NEGATIVE HPV 18 (test code = 83341) NEGATIVE HPV, HR, OTHER GENOTYPES (test code POSITIVE = 99234) HPV HIGH RISK WITH GENOTYPE, [id number] 00:00:00 Test Item Value Reference Range Interpretation Comments HPV HIGH RISK INTERP (test code = POSITIVE 95470) HPV 16 (test code = 82823) NEGATIVE HPV 18 (test code = 56337) NEGATIVE HPV, HR, OTHER GENOTYPES (test code POSITIVE = 31069) PAP TEST, THINPREP, [id number] 00:00:00 Test Item Value Reference Range Interpretation Comments SOURCE: (test code = PAP 8001) SLIDES: (test code = 1 8011) LMP: (test code = NOT GIVEN 8021) SPECIMEN ADEQUACY: (NOTE) (test code = 27904) INTERPRETATION: (test NO EPITHELIAL code = 58150) ABNORMALITY SEE BELOW OTHER COMMENTS: (test (NOTE) code = 8081) FOREIGN LANGUAGE STENOGRAPHER: (NOTE) (test code = 8101) LOCATION: (test code MAIN = 78831) PAP TEST, THINPREP, [id number] 00:00:00 Test Item Value Reference Range Interpretation Comments SOURCE: (test code = PAP 8001) SLIDES: (test code = 1 8011) LMP: (test code = NOT GIVEN 8021) SPECIMEN ADEQUACY: (NOTE) (test code = 60101) INTERPRETATION: (test NO EPITHELIAL code = 92557) ABNORMALITY SEE BELOW OTHER COMMENTS: (test (NOTE) code = 8081) FOREIGN LANGUAGE STENOGRAPHER: (NOTE) (test code = 8101) LOCATION: (test code MAIN = 64621) PAP TEST, THINPREP, [id number] 00:00:00 Test Item Value Reference Range Interpretation Comments SOURCE: (test code = PAP 8001) SLIDES: (test code = 1 8011) LMP: (test code = NOT GIVEN 8021) SPECIMEN ADEQUACY: (NOTE) (test code = 28477) INTERPRETATION: (test NO EPITHELIAL code = 04210) ABNORMALITY SEE BELOW OTHER COMMENTS: (test (NOTE) code = 8081) FOREIGN LANGUAGE STENOGRAPHER: (NOTE) (test code = 8101) LOCATION: (test code MAIN = 45227) PAP TEST, THINPREP, [id number] 00:00:00 Test Item Value Reference Range Interpretation Comments SOURCE: (test code = PAP 800) SLIDES: (test code = 1 8011) LMP: (test code = NOT GIVEN 8021) SPECIMEN ADEQUACY: (NOTE) (test code = 57286) INTERPRETATION: (test NO EPITHELIAL code = 69897) ABNORMALITY SEE BELOW OTHER COMMENTS: (test (NOTE) code = 8081) FOREIGN LANGUAGE STENOGRAPHER: (NOTE) (test code = 8101) LOCATION: (test code MAIN = 63392) PAP TEST, THINPREP, [id number] 00:00:00 Test Item Value Reference Range Interpretation Comments SOURCE: (test code = PAP 800) SLIDES: (test code = 1 8011) LMP: (test code = NOT GIVEN 8021) SPECIMEN ADEQUACY: (NOTE) (test code = 50343) INTERPRETATION: (test NO EPITHELIAL code = 82152) ABNORMALITY SEE BELOW OTHER COMMENTS: (test (NOTE) code = 8081) FOREIGN LANGUAGE STENOGRAPHER: (NOTE) (test code = 8101) LOCATION: (test code MAIN = 17325) PAP TEST, THINPREP, [id number] 00:00:00 Test Item Value Reference Range Interpretation Comments SOURCE: (test code = PAP 800) SLIDES: (test code = 1 8011) LMP: (test code = NOT GIVEN 8021) SPECIMEN ADEQUACY: (NOTE) (test code = 64586) INTERPRETATION: (test NO EPITHELIAL code = 25141) ABNORMALITY SEE BELOW OTHER COMMENTS: (test (NOTE) code = 8081) FOREIGN LANGUAGE STENOGRAPHER: (NOTE) (test code = 8101) LOCATION: (test code MAIN = 24376) Notes Date/Time Note Provider Source 2020-08-31 10:03:36-00:00 [facility] PROGRESS NOTE SUKHDEEPCASIMIROLAILA FACILITY: [facility] Billing #: [id number] Room: [address] [place] [address] MR #: [id number] : 1955 PHYSICIAN: Brando Gould MD ADMISSION DATE: 08/29/2020 DATE: 08/31/2020 SUBJECTIVE: No significant overnight events. The patient is tolerating her diet without any abdominal pain o r nausea/vomiting. No bowel movements overnight, b ut previous bowel movement was negative for blood and negati ve for fecal occult blood test. Cardiology has also seen the patient and there is consideration for cardiac catheterizati on given ese-IU-xlobfdgmc myocardial infarction. The zakiya ent is currently on a heparin drip. OBJECTIVE: VITAL SIGNS: Temperature 98 degrees, heart rate 62, respiratory rate 22, blood pressure 143/75. GENERAL: The patient appears older than stated a ge. She is awake, alert. She is eating breakfast. HEENT: Sclerae anicteric, conjunctivae pale, chai pharynx clear. CARDIOVASCULAR: Regular rate and rhythm without murmurs, gallops, or rubs. LUNGS: Clear to auscultation bilaterally. ABDOMEN: Soft, nontender, nondistended. Bowel so unds are normal. EXTREMITIES: No cyanosis, clubbing, or edema. LABORATORY DATA: Hemoglobin 8.3, MCV 67.8, plate lets 188. Troponin 5.78. INR 1.1. IMPRESSION: 1. Iron deficiency anemia. 2. Personal history of colon polyps. 3. Chronic hepatitis C. 4. Alcohol abuse. 5. History of perforated gastric ulcer. RECOMMENDATIONS: The patient without any overt o r occult evidence of GI bleeding and she recently had an EGD or colonoscopy done. Apparently, there was plan to repeat a colonoscopy and she can follow up with her outpa tient neurobiologist regarding this. From a GI sta ndpoint, okay to proceed with anticoagulation and cardiac work up as necessary. Platelets and INR are normal, which s ignifies pretty good synthetic liver function, and she is probably low risk of bleeding from her chronic liver disease. I appreciate the opportunity to assist in the ca re of this patient. NBV/MODL /[id number] 2020-08-30 13:10:49-00:00 [facility] CONSULTATION MEDARDO HERNANDEZKI FACILITY: [facility] Billing #: [id number] Room: [address] [place] [address] MR #: [id number] : 1955 DATE OF ADMISSION: 08/29/2020 DATE OF CONSULTATION: REQUESTING PHYSICIAN: Gabriel Gomez MD CLAIM ADJUSTER: Brando Gould MD Gastroenterology Consultation Note REASON FOR CONSULTATION: Anemia. HISTORY OF PRESENT ILLNESS: This is a 65-year-ol d female with history of chronic hepatitis-C/alcoholic liver d isease who presents to [facility] after routine blood work showed anemia. The patient states that she had an upper endoscopy and colonoscopy about 2 months ago for chronic abdominal pain and this revealed some colonic po lyps. These polyps were not removed at that time and she was told she needed to repeat colonoscopy in 2 months. Prior to the colonoscopy, she had routine blood work, which s hows severe anemia and therefore she was admitted to [facility] for further evaluation. The patient had a normal colored bowel movement this morning and it is ne gative for fecal occult blood test. In fact, she denies any further overt bleeding. She does have chronic anemia and her h emoglobin is basically at her baseline. She does have a histo ry of hepatitis C that has not been treated. Her last alcoholic drink was 2 months ago. No symptoms of chronic l iver disease such as varices, ascites, or encephalopathy. The patient also has elevated troponin is being seen by cardiolog ist. PAST MEDICAL HISTORY: 1. Chronic hepatitis C. 2. Alcohol abuse. 3. Alcoholic liver disease. 4. History of perforated gastric ulcer. 5. Chronic anemia. PAST SURGICAL HISTORY: 1. Exploratory laparotomy for perforated gastric ulcer. 2. EGD and colonoscopy. ALLERGIES: NONE. SOCIAL HISTORY: The patient used to be a drinker , but states she stopped two months ago. She smokes a pack a day. She smokes marijuana as well. She lives by herself i [facility]. FAMILY HISTORY: Negative for colon cancer, liver disease, or inflammatory bowel disease. MEDICATIONS: See MAR. REVIEW OF SYSTEMS: CARDIOVASCULAR: No chest pain, shortness of chandana th, or palpitation. PULMONARY: No cough, hemoptysis or wheezing. GENITOURINARY: No hematuria, dysuria, or increas ed frequency. NEUROLOGIC: No focal weakness, sensory deficits, or vision changes. The rest of the 10-point review of systems nonco ntributory. PHYSICAL EXAMINATION: VITAL SIGNS: Temperature 99 degrees, heart rate 69, respiratory rate 28, blood pressure 148/73, O2 s aturation 96%. GENERAL: The patient is awake, alert, looks olde r than stated age. Breathing comfortably. HEENT: Sclerae slightly icteric, conjunctivae pa le, oropharynx clear. CARDIOVASCULAR: Regular rate and rhythm without murmurs, gallops, rubs. LUNGS: Clear to auscultation bilaterally. ABDOMEN: Soft, nontender. No fluid wave. Bowel s ounds are normal. EXTREMITIES: No cyanosis, clubbing, or edema. NECK: No thyromegaly, lymphadenopathy, or jugula r venous distention. LABORATORY DATA: Hemoglobin 8.3, MCV 67.7, plate lets 178, potassium 3.2, troponin 6.85. U-tox is negative. Stool is negative for fecal occult blood test. IMPRESSION: 1. Iron deficiency anemia. 2. Chronic hepatitis C. 3. Alcohol abuse. 4. Personal history of colon polyps. 5. Non ST elevation myocardial infarction. 6. History of gastric ulcer, status post surgery . RECOMMENDATION: 1. The patient without any overt or occult evide nce of gastrointestinal bleeding. She had endoscopy and colonoscopy 3 months ago and already scheduled for another col onoscopy in [place]. She can follow up with her doctors down there for repeat colonoscopy as they know her history and I would prefer continuity of care. Okay to stop [place] tin drip as the patient is obviously not having varicocele b leed. I will resume her diet and let her eat. 2. 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 3. Complete alcohol abstinence recommended. 4. Follow up with Cardiology regarding elevated troponin. I appreciate the opportunity to assist in the ca re of this patient. Thank you very much. LAURYN /[id number]
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
[2023-02-03 03:44] VITALS: O2SAT 100
[2023-02-03 03:45] VITALS: BP 119/64; TEMP 98
--- NOTE | 2023-02-03 16:32 | RAD REPORT ---
EXAM DESCRIPTION: RAD - Femur Right - 02/03/2023 1:56 am CLINICAL HISTORY: 67 years Female, acute fall Femur Right COMPARISON: None. IMPRESSION: No fracture or dislocation. Joint spaces are preserved. Soft tissues are unremarkable. Diffuse osteopenia. Pelvic postsurgical changes. Vascular calcifications. Electronically signed by: Ricki Robledo DO 02/03/2023 2:07 AM CDT Due to temporary technical issues with the PACS/Fluency reporting system, reports are being signed by the in house radiologists without review as a courtesy to insure prompt reporting. The interpreting radiologist is fully responsible for the content of the report.
--- NOTE | 2023-02-03 16:37 | RAD REPORT ---
EXAM DESCRIPTION: RAD - Pelvis - 02/03/2023 1:56 am CLINICAL HISTORY: 67 years Female, acute fall Femur Right COMPARISON: None. IMPRESSION: No fracture or dislocation. Joint spaces are preserved. Soft tissues are unremarkable. Diffuse osteopenia. Pelvic postsurgical changes. Vascular calcifications. Electronically signed by: Ricki Robledo DO 02/03/2023 2:07 AM CDT Due to temporary technical issues with the PACS/Fluency reporting system, reports are being signed by the in house radiologists without review as a courtesy to insure prompt reporting. The interpreting radiologist is fully responsible for the content of the report.
--- NOTE | 2023-02-03 16:44 | RAD REPORT ---
EXAM DESCRIPTION: CT - Head C Spine Mpr Wo Con - 02/03/2023 6:03 am CLINICAL HISTORY: The patient is 67 years old and is Female; head injury TECHNIQUE: Axial computed tomography images of the head/brain and cervical spine without intravenous contrast. Sagittal and coronal reformatted images were created and reviewed. This CT exam was pe rformed using one or more of the following dose reduction techniques: automated exposure control, a djustment of the mA and/or kV according to patient size, and/or use of iterative reconstruction techn ique. DLP: 1047 mGy*cm COMPARISON: MRI brain dated 09/13/2022. FINDINGS: BRAIN/VENTRICLES: No acute hemorrhage, hydrocephalus or herniation. Cerebral volume loss , chronic small vessel ischemic changes and small prior left periventricular lacunar infarct. No hemo rrhage. No mass effect or midline shift. SKULL: No acute fracture. SINUSES: Unremarkable as visualized. No acute sinusitis. MASTOID AIR CELLS: Prior right mastoidectomy with soft tissue density in the mastoidectomy bed and middle ear cavity as well as mastoid effusion. ORBITS: Right periorbital and preseptal/preseptal compartment swelling. No acute retrobulbar abnorm ality. Prior cataract surgery. VERTEBRAE: Straightening of the cervical lordosis. Anterolisthesis of C3 on C4 and C4-C5. Advanced multilevel left facet arthropathy. No acute fracture. DISCS/SPINAL CANAL/NEURAL FORAMINA: See above. OTHER BONES/JOINTS: Remote fracture deformity of the left first rib. SOFT TISSUES: Unremarkable. LUNG APICES: Apical chronic lung changes. IMPRESSION: 1. No acute hemorrhage, hydrocephalus or herniation. 2. No acute cervical spine fracture. 3. Right periorbital and preseptal/preseptal compartment swelling. No acute retrobulbar abnormality . 4. Cerebral volume loss, chronic small vessel ischemic changes and small prior left periventricular lacunar infarct. Consider MRI brain for further evaluation. 5. Straightening of the cervical lordosis. Findings may be positional or due to muscle spasm. 6. Anterolisthesis of C3 on C4 and C4-C5. 7. Remote fracture deformity of the left first rib. 8. Prior right mastoidectomy with soft tissue density in the mastoidectomy bed and middle ear cavit y as well as mastoid effusion. 9. Apical chronic lung changes. Electronically signed by: Ricki STANLEY/31/2023 1:57 AM CDT Due to temporary technical issues with the PACS/Fluency reporting system, reports are being signed by the in house radiologists without review as a courtesy to insure prompt reporting. The interpreting radiologist is fully responsible for the content of the report.
--- NOTE | 2023-02-03 16:46 | RAD REPORT ---
EXAM DESCRIPTION: RAD - Chest Single View - 02/03/2023 1:56 am CLINICAL HISTORY: 67 years Female, fall , pain COMPARISON: Chest radiograph dated 09/11/2022 IMPRESSION: No focal consolidation. No pleural effusion. No pneumothorax. Cardiomediastinal silhouette is within normal limits. No acute osseous abnormality. Multiple remote right fracture deformities. Electronically signed by: Ricki Robledo DO 02/03/2023 2:08 AM CDT Due to temporary technical issues with the PACS/Fluency reporting system, reports are being signed by the in house radiologists without review as a courtesy to insure prompt reporting. The interpreting radiologist is fully responsible for the content of the report.
--- NOTE | 2023-02-03 16:54 | RAD REPORT ---
EXAM DESCRIPTION: RAD - Shoulder Right 2 View - 02/03/2023 1:56 am CLINICAL HISTORY: 67 years Female, fall, pain, injury Shoulder Right 2 View COMPARISON: None. IMPRESSION: One part fracture of the greater tuberosity. No dislocation. Joint spaces are preserved. Diffuse osteopenia. Soft tissues are unremarkable. Multiple remote right rib fracture deformities. Electronically signed by: Ricki Robledo DO 02/03/2023 2:09 AM CDT Due to temporary technical issues with the PACS/Fluency reporting system, reports are being signed by the in house radiologists without review as a courtesy to insure prompt reporting. The interpreting radiologist is fully responsible for the content of the report.
== END 2023-02-03 03:40 | disposition home or self-care (01) ==
LOC: ER 00:43
DX: S42.251A Displaced fracture of greater tuberosity of right humerus, initial encounter for closed fracture (principal); S00.11XA Contusion of right eyelid and periocular area, initial encounter; S40.011A Contusion of right shoulder, initial encounter; S70.01XA Contusion of right hip, initial encounter; S30.0XXA Contusion of lower back and pelvis, initial encounter; F10.229 Alcohol dependence with intoxication, unspecified; W18.30XA Fall on same level, unspecified, initial encounter; Y92.009 Unspecified place in unspecified non-institutional (private) residence as the place of occurrence of the external cause; F17.210 Nicotine dependence, cigarettes, uncomplicated; I10 Essential (primary) hypertension; Z95.818 Presence of other cardiac implants and grafts
CPT/HCPCS: 36415; 70450; 72125; 71045; 72170; 73030; 73552; 99284; 82077; Q0162

== ENCOUNTER 2023-09-13 16:09 | Emergency (ER) | payer OTHER ==
[2023-09-13 17:38] LABS: Absolute Lymphocytes (CBC) 0.8 K/uL (0.7-4.9); Absolute Monocytes 0.9 K/uL (0.1-1.3); Absolute Neutrophil 5.2 K/uL (1.8-8.0); Anion Gap 12.8 mEq/L (5.0-15.0); Basophils % 0.3 % (0-1.3); Hematocrit 16.8 % (36.0-45.0); Lymphocytes % 11.7 % (15.3-44.8); MCHC 27.7 g/dL (32.0-36.0); MCV 61.3 fL (80-100); Magnesium 1.8 mg/dL (1.6-2.4); Monocytes % 13.2 % (3.3-12.3); Neutrophils % 74.8 % (41.7-73.7); Nucleated Red Blood Cells % 0.2 % (0-0); Platelets 169 thou/uL (152-406); Potassium 3.8 mEq/L (3.5-5.1); RBC Red Blood Cell Count 2.74 M/uL (3.86-4.86); Red Cell Distribution Width 25.3 % (12.1-15.2); Troponin High Sensitivity 27.2 pg/mL (<58.9)
[2023-09-13 17:41] LABS: Hemoglobin 4.6 g/dL (12.0-15.0)
--- NOTE | 2023-09-13 17:55 | RAD REPORT ---
EXAM DESCRIPTION: RAD - Chest Single View - 09/13/2023 5:43 pm CLINICAL HISTORY: DYSPNEA Chest pain. COMPARISON: <Comparisons> FINDINGS: Portable technique limits examination quality. The lungs are grossly clear. The heart is normal in size. No displaced fractures. IMPRESSION: No acute intrathoracic process suspected.
[2023-09-13 18:44] LABS: PT Prothrombin Time 17.4 SECONDS (9.5-12.5); PTT, Activated Partial Thromb 24.8 SECONDS (24.3-36.9); Protime INR 1.6
[2023-09-13 18:57] LABS: Albumin 2.3 g/dL (3.4-5.0); Albumin/Globulin Ratio 0.6 (1.1-1.8); Bilirubin Direct 0.5 mg/dL (0-0.2); Bilirubin Indirect, Calculated 0.4 mg/dL (0.2-0.8); Bilirubin Total 0.9 mg/dL (0.2-1.0); Globulin 4.1 g/dL (2.3-3.5); Protein, Total 6.4 g/dL (6.4-8.2)
[2023-09-13 19:12] LABS: Anisocytosis 3+; Blood Morphology Comment NOTED (NOT SEEN); Hypochromasia 2+; Microcytosis 2+; Platelet Estimate ADEQ; White Blood Cell Scan OK (OK)
[2023-09-13 19:13] LABS: Ovalocytes 2+; Poikilocytosis 3+; Polychromasia SLIGHT; Target Cells FEW; Teardrop Cell 1+
--- NOTE | 2023-09-13 19:23 | RAD REPORT ---
EXAM DESCRIPTION: CTAbdomen Pelvis W Contrast - 09/13/2023 7:10 pm CLINICAL HISTORY: Abdominal pain. ABD PAIN COMPARISON: <Comparisons> TECHNIQUE: Biphasic CT imaging of the abdomen and pelvis was performed with 100 ml non-ionic IV cont rast. All CT scans are performed using dose optimization technique as appropriate and may include automated exposure control or mA/KV adjustment according to patient size. FINDINGS: The lung bases are clear. The liver demonstrates mild diffuse fatty infiltration. Spleen, pancreas, adrenal glands and kidneys are within normal limits. Cholecystectomy clips. No bowel obstruction, free air, free fluid or abscess. Aortoiliac atherosclerosis. Nonvisualized appe ndix. Left upper quadrant varices. No evidence of significant lymphadenopathy. No suspicious bony findings. IMPRESSION: No acute intra-abdominal or pelvic finding. Diffuse fatty liver.
--- NOTE | 2023-09-13 20:49 | EDPHYS ---
Physician Documentation [facility] Name: Lakeisha Kumari Age: 68 yrs Sex: Female : 1955 Arrival Date: 09/13/2023 Time: 16:09 Bed IW9 Private MD: ED Physician Raghavendra Hawkins HPI: 09/12 20:19 This 68 yrs old Female presents to ER via EMS with complaints of Shortness Of Breath. kb 20:19 Pt is a 68 year old female who presents for shortness of breath that started today. Pt kb states it is worse on exertion. Reports slight chest pain, but states that is normal because she is a smoker. Denies fever, cough, congestion. Historical: - Allergies: 17:31 No Known Allergies; ko1 - PMHx: 17:31 Alcoholism; Anxiety; Atrial Fib; Cirrhosis; Depression; gastric ulcer; Hepatitis; ko1 Hypertension; - PSHx: 17:31 cardiac stent; Cholecystectomy; Jaw Sx; Total abdominal hysterectomy; ko1 - Immunization history:: Adult Immunizations unknown. - Infectious Disease History:: Denies. - Social history:: Smoking status: Patient reports the use of cigarette tobacco products, smokes one pack cigarettes per day. Patient uses alcohol, only on a social basis. ROS: 20:17 Constitutional: As per HPI kb Exam: 20:17 Constitutional: This is a well developed, well nourished patient who is awake, alert, kb and in no acute distress. Head/Face: Normocephalic, atraumatic. ENT: Moist Mucous membranes Cardiovascular: Regular rate Respiratory: Respirations even and unlabored. No increased work of breathing. Talking in full sentences Abdomen/GI: Soft, non-tender. No distention Skin: Warm, dry with normal turgor. Normal color. Neuro: Awake and alert, GCS 15, oriented to person, place, time, and situation. Moves all extremities. Normal gait. 20:17 Musculoskeletal/extremity: Extremities: grossly normal except: noted in the posterior aspect of right shoulder: pain, ROM: limited active range of motion due to pain, Circulation is intact in all extremities. Sensation intact. Vital Signs: 16:30 BP 116 / 96; Pulse 98; Resp 19; Temp 98; Pulse Ox 100% on R/A; ko1 17:42 BP 103 / 60; Pulse 98; Resp 16; Pulse Ox 100% ; ko1 18:18 BP 107 / 75; Pulse 104; Resp 19; Pulse Ox 100% ; ko1 20:00 BP 119 / 47; Pulse 105; Resp 17; Pulse Ox 100% ; vc1 22:00 BP 120 / 63; Pulse 91; Resp 18; Pulse Ox 100% ; vc1 22:55 BP 120 / 63; Pulse 90; Resp 17; Temp 97.9; Pulse Ox 100% on R/A; vk 09/13 00:25 BP 133 / 64; Pulse 84; Resp 17; Pulse Ox 100% ; jw7 MDM: 09/12 16:12 Patient medically screened. kb 20:18 Data reviewed: vital signs, nurses notes. kb 20:18 Consideration of Admission/Observation Escalation of care including kb admission/observation considered. pt will be transferred due to lack of GI services. Historians other than the Patient: EMS: [facility]. Counseling: I had a detailed discussion with the patient and/or guardian regarding the historical points, exam findings, and any diagnostic results supporting the discharge/admit diagnosis, lab results, radiology results, the need to transfer to another facility, [facility] does not immediately have the required specialist. 20:19 Differential diagnosis: Anemia Chronic Obstructive Pulmonary Disease pulmonary edema. kb 20:23 ED course: Discussed anemia and need for blood transfusion with pt. Pt states she did kb have black tarry stool this morning. States she has had that in the past, but it comes and goes. States she has had some abd pain as well. Pt states she has been discussing pain with her dr, but they won't give anything stronger than OTC medication. . 09/12 16:12 Order name: Basic Metabolic Panel; Complete Time: 17:42 kb 09/12 16:12 Order name: CBC with Diff; Complete Time: 19:15 kb 09/12 16:12 Order name: Magnesium; Complete Time: 17:42 kb 09/12 16:12 Order name: NT PRO-BNP; Complete Time: 17:42 kb 09/12 16:12 Order name: Troponin HS; Complete Time: 17:42 kb 09/12 17:53 Order name: LFT's; Complete Time: 19:08 kb 09/12 17:53 Order name: Type And Screen kb 09/12 17:53 Order name: Protime (+inr); Complete Time: 18:45 kb 09/12 17:53 Order name: Ptt, Activated; Complete Time: 18:45 kb 09/12 17:53 Order name: Type And Screen bd 09/12 17:53 Order name: Bb Add On bd 09/12 18:43 Order name: Packed RBC Leukored EDMS 09/12 19:12 Order name: CBC Smear Scan; Complete Time: 19:15 EDMS 09/12 16:12 Order name: XRAY Chest (1 view); Complete Time: 17:57 kb 09/12 17:53 Order name: CT Abd/Pelvis - IV Contrast Only; Complete Time: 19:31 kb 09/12 16:12 Order name: EKG; Complete Time: 16:13 kb 09/12 16:12 Order name: Cardiac monitoring; Complete Time: 16:15 kb 09/12 16:12 Order name: EKG - Nurse/Tech; Complete Time: 17:07 kb 09/12 16:12 Order name: IV Saline Lock; Complete Time: 16:57 kb 09/12 16:12 Order name: Labs collected and sent; Complete Time: 16:57 kb 09/12 16:12 Order name: O2 Per Protocol; Complete Time: 16:15 kb 09/12 16:12 Order name: O2 Sat Monitoring; Complete Time: 16:15 kb Administered Medications: 21:20 Drug: Pantoprazole IV 8 mg/hr IV at 25 ml/hr continuous; (Standard dilution is 80 mg in jw7 250 mL NS) Route: IV; Rate: 25 ml/hr; Site: right forearm; 09/13 01:23 Follow up: Response: No adverse reaction; IV Status: Infusion continued upon transfer; jw7 IV Intake: 75ml 09/12 21:20 Drug: Pantoprazole IVP 80 mg IVP once Route: IVP; Site: right forearm; jw7 09/13 01:21 Follow up: Response: No adverse reaction; Marked relief of symptoms; Pain is decreased jw7 00:04 Drug: Acetaminophen PO 1000 mg PO once Route: PO; jw7 01:21 Follow up: Response: No adverse reaction jw7 Disposition Summary: 09/13/23 20:49 Transfer Ordered Notes: Transfer Location: [facility] kb Reason: Higher level of care kb Condition: Stable kb Problem: new kb Symptoms: are unchanged kb Accepting Physician: Dr Meldey(09/14/23 01:24) jw7 Diagnosis - GI Bleed/ Gastrointestinal hemorrhage, unspecified kb Forms: - Medication Reconciliation Form kb - SBAR form kb Signatures: Dispatcher [employer] EDVijaya Templeton, PARCEL POST OFFICER-C MAN-Shante Lopez RN RN jw7 Saray Kelsey RN RN ko1 Corrections: (The following items were deleted from the chart) 09/12 17:31 17:31 PMHx: "Heart attack or a stroke"; ko1 ko1 09/13 01:24 09/12 20:49 Dr Galindo cole jw7
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
[2023-09-13] MEDS ORDERED: PANTOPRAZOLE 40 MG INJ ONE (21:07)
[2023-09-13] MEDS ORDERED: NA CHLORIDE 0.9% 250 ML ONE (21:08)
[2023-09-13] MEDS ORDERED: NA CHLORIDE 0.9% 500 ML ONE (23:07)
[2023-09-14] MEDS ORDERED: ACETAMINOPHEN 500 MG TAB ONE
[2023-09-14 03:07] VITALS: BP 133/64; TEMP 97.9; O2SAT 100
--- NOTE | 2023-09-14 12:34 | EKG ---
Test Date: 2023-09-13 Test Time: 17:03:38 Ferris Wheel Attendant: MYRIAM MEASUREMENT RESULTS: Intervals: Rate: 100 MO: 158 QRSD: 84 QT: 346 QTc: 446 [place]: P: 90 MO: 158 QRS: 74 T: 110 INTERPRETIVE STATEMENTS: Normal sinus rhythm Anterior infarct, age undetermined Abnormal ECG Compared to ECG 09/11/2022 20:03:23 Myocardial infarct finding now present Electronically Signed On 09-14-23 12:33:03 CDT by Servando Bright
== END 2023-09-14 01:24 | disposition short-term general hospital (02) ==
LOC: ER 16:09
PROC: 30233N1 Transfusion of Nonautologous Red Blood Cells into Peripheral Vein, Percutaneous Approach (ICD-10-PCS; principal; 2023-09-14)
DX: K92.2 Gastrointestinal hemorrhage, unspecified (principal); F10.20 Alcohol dependence, uncomplicated; F17.210 Nicotine dependence, cigarettes, uncomplicated; Z95.818 Presence of other cardiac implants and grafts
CPT/HCPCS: 93005; 85025; 80048; 36415; 86900; 83735; 86850; 85610; 86901; 80076; 85730; 86920 ×2; 84484; 83880; 74177; 71045; 36430; Q9967; C9113; P9016; J7050; J7040